=== PATIENT | male | born 1940 | race Caucasian/White ===

== ENCOUNTER → 2017-06-14 09:01 | Outpatient (CLI) | payer MEDICARE, SELFPAY ==
[2017-06-14 10:36] LABS: Anion Gap 7 (5-15); BUN 25 mg/dL (7-18); BUN/Creat Ratio 16.4 RATIO (10-20); Calcium,Total 9.1 mg/dL (8.5-10.1); Chloride 102 mmol/L (98-107); Creatinine, Serum 1.52 mg/dL (0.70-1.30); EST Glomerular Filtration Rate 48 mL/min (>60); Est Glom Filt Rate - Afr Amer 58 mL/min (>60); Glucose 275 mg/dL (74-106); Potassium 3.6 mmol/L (3.5-5.1); Sodium Level 137 mmol/L (136-145)
== END ==
PROVIDERS: Family Provider Family Medicine; PCP Family Medicine; Visit Provider Family Medicine
DX: E11.9 Type 2 diabetes mellitus without complications (principal)
CPT/HCPCS: 36415; 80048

== ENCOUNTER → 2017-09-13 09:05 | Outpatient (CLI) | payer MEDICARE, SELFPAY ==
[2017-09-13 10:33] LABS: AST(SGOT) 34 U/L (15-37); Alanine Aminotransfer ALT/SGPT 143 U/L (16-61); Albumin, Serum 3.8 g/dL (3.2-5.0); Alkaline Phosphatase 164 U/L (45-117); Anion Gap 7 (5-15); BUN 24 mg/dL (7-18); BUN/Creat Ratio 16.9 RATIO (10-20); Bilirubin, Direct 0.19 mg/dL (0.00-0.30); Calcium,Total 9.3 mg/dL (8.5-10.1); Chloride 103 mmol/L (98-107); Cholesterol 107 mg/dL (200); Creatinine, Serum 1.42 mg/dL (0.70-1.30); EST Glomerular Filtration Rate 51 mL/min (>60); Est Glom Filt Rate - Afr Amer 62 mL/min (>60); Glucose 210 mg/dL (74-106); High Density Lipoprotein 48 mg/dL; Potassium 3.6 mmol/L (3.5-5.1); Protein, Total 7.8 g/dL (6.4-8.2); Sodium Level 137 mmol/L (136-145); Triglycerides 129 mg/dL; Very Low Density Lipoprotein 26 mg/dL (5-40)
[2017-09-13 10:34] LABS: Microalbumin:Creatinine Ratio 75.4 mg/g CRE (<30 mg/g CRE)
== END ==
PROVIDERS: Family Provider Family Medicine; PCP Family Medicine; Visit Provider Family Medicine
DX: E55.9 Vitamin D deficiency, unspecified (principal); E11.9 Type 2 diabetes mellitus without complications
CPT/HCPCS: 36415; 80048; 80061; 80076; 82043; 82306; 82570

== ENCOUNTER → 2017-12-22 09:33 | Outpatient (CLI) | payer MEDICARE, SELFPAY ==
[2017-12-22 12:38] LABS: Anion Gap 9 (5-15); BUN 33 mg/dL (7-18); BUN/Creat Ratio 22.8 RATIO (10-20); Calcium,Total 9.2 mg/dL (8.5-10.1); Chloride 102 mmol/L (98-107); Creatinine, Serum 1.45 mg/dL (0.70-1.30); EST Glomerular Filtration Rate 50 mL/min (>60); Est Glom Filt Rate - Afr Amer 61 mL/min (>60); Glucose 217 mg/dL (74-106); Potassium 3.6 mmol/L (3.5-5.1); Sodium Level 137 mmol/L (136-145)
== END ==
PROVIDERS: Family Provider Family Medicine; PCP Family Medicine; Visit Provider Family Medicine
DX: I10 Essential (primary) hypertension (principal)
CPT/HCPCS: 36415; 80048

== ENCOUNTER → 2018-03-21 10:36 | Outpatient (CLI) | payer MEDICARE, SELFPAY ==
[2018-03-21 12:19] LABS: AST(SGOT) 28 U/L (15-37); Alanine Aminotransfer ALT/SGPT 44 U/L (16-61); Albumin, Serum 3.8 g/dL (3.2-5.0); Alkaline Phosphatase 77 U/L (45-117); Anion Gap 11 (5-15); BUN 24 mg/dL (7-18); BUN/Creat Ratio 15.8 RATIO (10-20); Bilirubin, Direct 0.18 mg/dL (0.00-0.30); Calcium,Total 9.2 mg/dL (8.5-10.1); Chloride 103 mmol/L (98-107); Cholesterol 118 mg/dL (200); Creatinine, Serum 1.52 mg/dL (0.70-1.30); EST Glomerular Filtration Rate 47 mL/min (>60); Est Glom Filt Rate - Afr Amer 57 mL/min (>60); Globulin 3.8 g/dL (2.2-4.2); Glucose 142 mg/dL (74-106); High Density Lipoprotein 50 mg/dL; PSA,Total - Annual Screen 0.37 ng/mL (0.00-4.00); Potassium 4.1 mmol/L (3.5-5.1); Protein, Total 7.6 g/dL (6.4-8.2); Sodium Level 141 mmol/L (136-145); Triglycerides 128 mg/dL; Very Low Density Lipoprotein 26 mg/dL (5-40)
[2018-03-21 12:27] LABS: Vitamin D,25 Hydroxy 42.2 ng/mL (29.95-100.01)
[2018-03-21 12:33] LABS: Hemoglobin A1c 7.9 % (4.2-6.3)
[2018-03-21 12:43] LABS: Microalbumin,Random Urine 29.1 mg/L (NO RANGE EST.); Microalbumin:Creatinine Ratio 25.8 mg/g CRE (<30 mg/g CRE)
== END ==
PROVIDERS: Family Provider Family Medicine; PCP Family Medicine; Visit Provider Family Medicine
DX: Z12.5 Encounter for screening for malignant neoplasm of prostate (principal); E11.9 Type 2 diabetes mellitus without complications; E55.9 Vitamin D deficiency, unspecified
CPT/HCPCS: 36415; 80048; 80061; 80076; 82043; 82306; 82570; 83036; 84153; G0103

== ENCOUNTER → 2018-09-19 09:16 | Outpatient (CLI) | payer MEDICARE, SELFPAY ==
[2018-09-19 11:08] LABS: Anion Gap 5 (5-15); BUN 33 mg/dL (7-18); BUN/Creat Ratio 22.6 RATIO (10-20); Calcium,Total 9.3 mg/dL (8.5-10.1); Chloride 105 mmol/L (98-107); Cholesterol 114 mg/dL (200); Creatinine, Serum 1.46 mg/dL (0.70-1.30); EST Glomerular Filtration Rate 50 mL/min (>60); Est Glom Filt Rate - Afr Amer 60 mL/min (>60); Glucose 97 mg/dL (74-106); High Density Lipoprotein 46 mg/dL; Potassium 4.3 mmol/L (3.5-5.1); Sodium Level 139 mmol/L (136-145); Triglycerides 144 mg/dL; Very Low Density Lipoprotein 29 mg/dL (5-40)
== END ==
PROVIDERS: Family Provider Family Medicine; PCP Family Medicine; Referring Provider Family Medicine; Visit Provider Family Medicine
DX: E11.9 Type 2 diabetes mellitus without complications (principal)
CPT/HCPCS: 36415; 80048; 80061

== ENCOUNTER → 2019-03-28 10:20 | Outpatient (CLI) | payer MEDICARE, SELFPAY ==
[2019-03-28 12:49] LABS: Anion Gap 6 (5-15); BUN 34 mg/dL (7-18); BUN/Creat Ratio 20.7 RATIO (10-20); Calcium,Total 9.6 mg/dL (8.5-10.1); Chloride 106 mmol/L (98-107); Cholesterol 110 mg/dL (200); Creatinine, Serum 1.64 mg/dL (0.70-1.30); EST Glomerular Filtration Rate 43 mL/min (>60); Est Glom Filt Rate - Afr Amer 52 mL/min (>60); Glucose 175 mg/dL (74-106); High Density Lipoprotein 40 mg/dL; PSA,Total - Annual Screen 0.25 ng/mL (0.00-4.00); Sodium Level 141 mmol/L (136-145); Triglycerides 165 mg/dL; Very Low Density Lipoprotein 33 mg/dL (5-40)
== END ==
PROVIDERS: PCP Family Medicine; Referring Provider Family Medicine; Visit Provider Family Medicine
DX: Z00.00 Encounter for general adult medical examination without abnormal findings (principal); I10 Essential (primary) hypertension; Z12.5 Encounter for screening for malignant neoplasm of prostate
CPT/HCPCS: 36415; 80048; 80061; 84153; G0103

== ENCOUNTER → 2019-09-25 08:57 | Outpatient (CLI) | payer MEDICARE, SELFPAY ==
[2019-09-25 10:38] LABS: Anion Gap 6 (5-15); BUN 35 mg/dL (7-18); BUN/Creat Ratio 16.4 RATIO (10-20); Calcium,Total 9.2 mg/dL (8.5-10.1); Chloride 106 mmol/L (98-107); Cholesterol 101 mg/dL (200); Creatinine, Serum 2.13 mg/dL (0.70-1.30); EST Glomerular Filtration Rate 32 mL/min (>60); Est Glom Filt Rate - Afr Amer 39 mL/min (>60); Glucose 113 mg/dL (74-106); High Density Lipoprotein 37 mg/dL; Potassium 4.1 mmol/L (3.5-5.1); Sodium Level 139 mmol/L (136-145); Triglycerides 124 mg/dL; Very Low Density Lipoprotein 25 mg/dL (5-40)
== END ==
PROVIDERS: PCP Family Medicine; Referring Provider Family Medicine; Visit Provider Family Medicine
DX: I10 Essential (primary) hypertension (principal)
CPT/HCPCS: 36415; 80048; 80061

== ENCOUNTER 2019-12-15 10:50 | Day surgery (SDC) | payer MEDICARE, SELFPAY ==
[2019-12-15 11:15] VITALS: BP 153/74; PULSE 120; RESP 16; TEMP 37.3; O2SAT 99; BMI 23.2
--- NOTE | 2019-12-15 11:31 | PCM.HP.STD ---
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 Past Medical History Allergies No Known Allergies Allergy (Verified 12/08/19 15:00) Home Medications: Ambulatory Orders Medication Instructions Recorded Atorvastatin Calcium [Lipitor] 10 mg PO QHS 12/08/19 Cholecalciferol (VIT D3) [Vitamin 1,000 unit PO DAILY 12/08/19 D] Glimepiride 4 mg PO DAILY 12/08/19 Lisinopril [Zestril] 2.5 mg PO DAILY 12/08/19 Loperamide [Imodium] 2 mg PO BID 12/08/19 Melatonin/Pyridoxine HCl (B6) 1 ea PO QHS 12/08/19 [Melatonin 10 mg Tablet] Metformin HCl [Metformin ER 1,000 mg PO BID 12/08/19 Osmotic] Potassium Chloride [Klor-Con] 20 meq PO DAILY 12/08/19 Ubidecarenone/Vit E Acet [Co Q-10 1 ea PO DAILY 12/08/19 100 mg Softgel] Surgical History: no surgical history Smoking Status: Former smoker Tobacco Use: Non-smoker Review of Systems Constitutional: Denies: Chills, Fever, Weight Change HEENT: Denies: Head Aches, Sinus Congestion, Sinus Drainage Cardiovascular: Denies: Chest Pain, Palpitations Respiratory: Denies: Cough, Shortness of breath at rest, Sputum production Gastrointestinal: Denies: Abdominal Pain, Nausea, Vomiting Genitourinary: Denies: Dysuria Musculoskeletal: Denies: Joint Pain, Joint Tenderness Skin: Denies: Rash, Wounds Neurological: Denies: Numbness, Tingling, Focal weakness Psychiatric: Denies: Anxiety, Depression, Homicidal Ideations, Suicidal Ideations Hematologic/ Lymphatic: Denies: Easy Bruising, Easy Bleeding VTE Information - Inpt Only VTE Present on Admission: No - Physical Exam Vitals/I&O's: Vital Signs Temp Pulse Resp BP Pulse Ox 99.1 F 120 H 16 153/74 H 99 12/15/19 11:15 12/15/19 11:15 12/15/19 11:15 12/15/19 11:15 12/15/19 11:15 Oxygen Delivery Method Room Air Weight: 71.4 kg Body Mass Index (BMI) 23.2 General: Alert, Oriented x3, Cooperative HEENT: Atraumatic, PERRLA, EOMI, Normocephalic Neck: Supple, No JVD, Negative Carotid Bruits Lungs: Clear to auscultation, Normal air movement Cardiovascular: Regular rate, No murmurs Abdomen: Bowel Sounds Present, Soft, Non Tender Extremities: No edema, Capillary Refill Less than 3 Seconds Skin: No rashes, No breakdown Musculoskeletal: No Tenderness to Palpation of Joints or Extremities Neurological: Cranial nerves II-XII grossly intact Psych/Mental Status: Normal Affect, Appropriate Current Medications Cefazolin Sodium 2 gm/ Sodium (Chloride) 110 mls @ 150 mls/hr IV PREOP ONE Stop: 12/15/19 12:43 Assessment/Plan Plan proceed with removal of Judd catheter direct vision internal urethrotomy placement of a larger catheter and then after this he will have to do CIC.
--- NOTE | 2019-12-15 11:32 | DCINST_ITS ---
Discharge Diet: Light diet - advance as tolerated Discharge Activity: Return to Normal Activity Call your doctor if your incision/area has: Sudden Increased Bleeding Call your doctor if you observe: Fever of 101 or Higher Catheter: Judd to leg bag, Judd to large bag Drain: [place] Allergies/Adverse Reactions: Allergies No Known Allergies Allergy (Verified 12/08/19 15:00) Medications to take at Discharge Atorvastatin Calcium [Lipitor] 10 mg PO QHS 12/08/19 Cholecalciferol (VIT D3) [Vitamin D] 1,000 unit PO DAILY 12/08/19 Glimepiride 4 mg PO DAILY 12/08/19 Lisinopril [Zestril] 2.5 mg PO DAILY 12/08/19 Loperamide [Imodium] 2 mg PO BID 12/08/19 Melatonin/Pyridoxine HCl (B6) [Melatonin 10 mg Tablet] 1 ea PO QHS 12/08/19 Metformin HCl [Metformin ER Osmotic] 1,000 mg PO BID 12/08/19 Potassium Chloride [Klor-Con] 20 meq PO DAILY 12/08/19 Ubidecarenone/Vit E Acet [Co Q-10 100 mg Softgel] 1 ea PO DAILY 12/08/19 Primary Care Physician: Srinivas Thayer MD [Primary Care Provider] - Test Results: Test results from this visit will be discussed in further detail at your follow- up appointment, if applicable. Please Follow Up With: Tal Hill MD When: in 2 weeks, please call to make an appointment.
[2019-12-15] MEDS: Lactated Ringers 1,000 ML 100 ML IV (11:33)
[2019-12-15] MEDS: Cefazolin 2 GM in 0.9% Normal Saline 100 ML IV (12:00)
--- NOTE | 2019-12-15 12:22 | OP.PCM_ITS ---
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 He knows that afterwards he will need to do self dilation to keep the stricture open and that is very likely that the stricture could scarred down again. Patient was taken back to the operating room and smooth duction of general anesthesia he was placed in dorsolithotomy position position. The existing catheter was removed. The penis and testicles were prepped and draped in usual sterile fashion. I then went into the bladder with a 20 B[place]udian urethrotome and inspected the entire length the urethra was clear but at the bulbar urethra there was a severe stricture the opening was very small could not get through the stricture opening I then used the clear cut knife and cut at the 12:00 enough so that he can get through the stricture with a 20 [place]udian scope I then went to the prostatic channel is a very scarred down prostatic channel from prior surgery bladder was fairly distended inside the bladder the left and right ureter orifice were identified no tumors are seen within the bladder. I then put an Amplatz wire through the urethrotome pulled out the urethra over the wire and then put a catheter over the wire it was a 20 [place]udian catheter and the catheter went over the wire into the bladder and then I pulled the wire out we will leave the catheter in place and let the stricture heal up over the catheter the next 2 weeks and then we will see him back in the office for removal of the Akers catheter and then he will need to start self dilation with a 16 Bermudian catheter once a day to keep the stricture from scarring down completely. Type of Anesthesia:: General Drains: 20 fr akers - Admit VTE Documentation VTE Present on Admission: No VTE Mechan Device Prophylaxis: SCD's
[2019-12-15 12:31] VITALS: BP 133/64; BP 153/74; PULSE 102; RESP 16; TEMP 36.1; O2SAT 95
[2019-12-15 12:35] LABS: Bedside Glucose 142 mg/dL (70-110)
[2019-12-15 12:45] VITALS: BP 126/64; BP 153/74; PULSE 97; RESP 16; O2SAT 97
[2019-12-15 12:46] LABS: Bedside Glucose 160 mg/dL (70-110)
[2019-12-15 12:49] VITALS: BP 121/65; BP 153/74; PULSE 91; RESP 16; O2SAT 97
[2019-12-15 12:58] VITALS: BP 118/65; BP 153/74; PULSE 88; RESP 16; TEMP 36.2; O2SAT 98
[2019-12-15 13:52] VITALS: BP 133/62; BP 153/74; PULSE 96; RESP 16; TEMP 36.5; O2SAT 99
== END 2019-12-15 13:53 | disposition home or self-care (01) ==
LOC: SDC 10:50 → AC 10:51
PROVIDERS: Anesthesiology; PCP Family Medicine; Referring Provider Urology; Visit Provider Urology
PROC: 0T7D8ZZ Dilation of Urethra, Via Natural or Artificial Opening Endoscopic (ICD-10-PCS; CPT 52276; principal; 2019-12-15 12:45)
DX: N35.919 Unspecified urethral stricture, male, unspecified site (principal); Z79.84 Long term (current) use of oral hypoglycemic drugs; Z79.899 Other long term (current) drug therapy; Z87.891 Personal history of nicotine dependence; Z20.828 Contact with and (suspected) exposure to other viral communicable diseases; I10 Essential (primary) hypertension; G25.81 Restless legs syndrome; E78.00 Pure hypercholesterolemia, unspecified; Z85.46 Personal history of malignant neoplasm of prostate; Z85.038 Personal history of other malignant neoplasm of large intestine; E11.9 Type 2 diabetes mellitus without complications; Z85.048 Personal history of other malignant neoplasm of rectum, rectosigmoid junction, and anus
CPT/HCPCS: 00910; 52276; 82962; 87635; C9803; J7120; C1769; J2405; U0003

== ENCOUNTER → 2019-12-27 09:04 | Outpatient (CLI) | payer MEDICARE, SELFPAY ==
[2019-12-15 11:15] VITALS: BMI 23.2
[2019-12-27 10:47] LABS: Anion Gap 6 (5-15); BUN 28 mg/dL (7-18); BUN/Creat Ratio 15.5 RATIO (10-20); Calcium,Total 9.3 mg/dL (8.5-10.1); Chloride 108 mmol/L (98-107); Creatinine, Serum 1.81 mg/dL (0.70-1.30); EST Glomerular Filtration Rate 39 mL/min (>60); Est Glom Filt Rate - Afr Amer 47 mL/min (>60); Glucose 157 mg/dL (74-106); Potassium 4.4 mmol/L (3.5-5.1); Sodium Level 139 mmol/L (136-145)
== END ==
PROVIDERS: PCP Family Medicine; Referring Provider Family Medicine; Visit Provider Family Medicine
DX: N28.9 Disorder of kidney and ureter, unspecified (principal)
CPT/HCPCS: 36415; 80048

== ENCOUNTER → 2020-02-08 10:07 | Outpatient (CLI) | payer MEDICARE, SELFPAY ==
[2020-02-08 11:17] LABS: PSA,Total- Diagnostic 0.28 ng/mL (0.0-4.0)
== END ==
PROVIDERS: PCP Family Medicine; Visit Provider Urology
DX: C61 Malignant neoplasm of prostate (principal)
CPT/HCPCS: 36415; 84153

== ENCOUNTER → 2020-03-01 12:08 | Outpatient (CLI) | payer MEDICARE, SELFPAY ==
--- NOTE | 2020-03-01 12:11 | RAD_ITS ---
STUDY: X-RAY - RIGHT ANKLE REASON FOR EXAM: Male, 79 years old. ANKLE PAIN x3 WEEKS S/P FALL INJURY WHILE DIGGING A POST HOLE TECHNIQUE: 3 view(s) of the ankle. COMPARISON: None. FINDINGS: The bones are osteopenic. The well circumscribed density distal to the medial malleolus suggesting prior injury. Normal tibiotalar articulation and ankle mortise. There is an Achilles and plantar spur. The visualized subtalar, talonavicular, calcaneocuboid and tarsal articulations are normal. The soft tissue structures are unremarkable. RAD/Ankle min 3 Views IMPRESSION: Bony demineralization, probable old injury of the medial malleolus. No visualized acute fracture. Electronically Signed: Maryam Wu MD at 4:59 EST Tel , Service support ,
== END ==
PROVIDERS: PCP Family Medicine; Referring Provider Family Medicine; Visit Provider Family Medicine
DX: S99.919A Unspecified injury of unspecified ankle, initial encounter (principal)
CPT/HCPCS: 73610

== ENCOUNTER 2020-04-15 12:30 | Outpatient (RCR) | payer MEDICARE, SELFPAY ==
--- NOTE | 2020-03-13 14:26 | HP.PTEVAL ---
Patient's Visit Information ALEA SALGADO is a 79 year old M referred to Physical Therapy by Dr. Srinivas Thayer MD with a diagnosis of Right ankle pain. Date of Evaluation: 03/13/20 Physical Therapist: Prashanth Dillon, PT, Cert MDT, OCS - Visit Plan Frequency: 2x /Week Duration: 4 Weeks Plan: 2xs/week for 4 weeks per POC. PT Interventions: gait training, balance/proprioception, LE strengthening, AD training, stairs, functional mobility, ankle ROM. - Subjective THIS MALE 79 Y/O MALE INJURIED R ANKLE WHILE DIGGING A METAL POST HOLE. DENIES FALLING TO THE GROUND DURING THE INJURY. JANUARY 2020 DOI. PATIENT SEEN FAMILY MD RECOMMENDED PT ,DID X-RAYS -. AMBULATING TO THE CLINIC WITH SPC ON R SIDE. STARTED USING CANE AFTER THE TIME OF INJURY. DENIES ANY RECENT FALLS. REPORTS PAIN IN THE R LE AND ANKLE. REPORTS UNSTEADINESS AND WEAKNESS OF R LE. REPORTS BILATERAL LE SWELLING DUE TO DIABETES USES COMPRESSION SOCKS . HX OF CANCER. REPORTS NUMBNESS OF TOES IN R LE. VOCATION: RETIRED - Pain Right Ankle Pain Intensity (Out of 10): 0 Pain Intensity Range: 10 - Objective STAIRS: STEP TO PATTERN WITH B UEA. GAIT: DECREASED BUFFY, DECREASED STEP LENGTH, SPC ON R. EDEMA TRIMALLEOR JOINT LINE : RIGHT 49 CM ,LEFT 50 CM. PITTING EDEMA R FOOT. NEURO: SENSATION LIGHT INTACT THROUGHOUT LOWER EXTREMITIES. MMT: HIP FLEXION 4+/5, QUADS/HAMS 5/5 LEFT,4/5 RIGHT ,RIGHT DORSIFLEXION 5/5, INVERSION/EVERSION,4/5,G-S 4-/5. AROM: DORSIFLEXION 4 DEGREES,PLANTER 55 DEGREES ,INVERSION 28 DEGREES ,EVERSION 7 DEGREES. FOREFOOT MOBILITY: WNL. REARFOOT MOBILITY: WNL. TALOCRUAL MOBILIZATION: WNL. ANTERIOR DRAWER: WNL. SLS balance: unable - Balance Scores Functional Gait Assessment Score: 18 % Disability: 40.0000 - Goals Goal 1:: Patient will demonstrate improved balance evidenced by 5 or > point improvement on Functional Gait Assessment. Goal Time Frame: 2-4 Weeks Goal 2:: Patient will demonstrate improved ankle DF to 5 degrees for improved functional mobility. Goal Time Frame: 2-4 Weeks Goal 3:: Patient will demonstrate R SLS balance for 5 seconds for improved balance and decreased fall risk. Goal Time Frame: 2-4 Weeks Goal 4:: Patient will demonstrate independence with HEP. Goal Time Frame: 2-4 Weeks Goal 5:: Patient will demonstrate improved LEFS score of 5 or > points for improved QOL. Goal Time Frame: 2-4 Weeks Goal 6:: Patient will demonstrate the ability to ambulate with mild impairments in gait mechanics for improved community ambulation and decreased fall risk. Goal Time Frame: 2-4 Weeks - Rehabilitation Potential Physical Therapy Diagnosis: Patient is a 79 year old male presenting to the clinic with mild/moderately impaired gait, ambulation with SPC, decreased LE strength, B LE edema, and limited ankle AROM. Rehabilitation Potential: Good - Anticipated Interventions Patient/Client Instruction: Educate patient on: Condition, Plan of Care For the Purpose of:: To decrease pain, To decrease swelling/inflammation, To increase ROM, To improve muscle performance and motor function, To improve ability to perform ADL's, To increase tolerance to activity/condition/position, To improve performance and independence with ADL's, To improve ability of physical actions for home/community/work/leisure, To improve gait and locomotor functions, To increase flexibility/ROM, To improve balance, To improve safety with gait, To improve safety, To improve health and function, To improve ability to perform tasks related to life management Therapeutic Exercise to Include: Strength training, Balance training, Body mechanics, Flexibilty training, Gait and locomotor training, Active ROM For the Purpose of:: To decrease pain, To decrease swelling/inflammation, To increase ROM, To improve muscle performance and motor function, To improve ability to perform ADL's, To increase tolerance to activity/condition/position, To improve performance and independence with ADL's, To improve ability of physical actions for home/community/work/leisure, To improve gait and locomotor functions, To increase flexibility/ROM, To improve balance, To improve safety with gait, To improve health and function, To improve ability to perform tasks related to life management Thank you for the opportunity to evaluate your patient. For Medicare and Medicare HMO plans, please review the plan of care and approve it. It will need to be FAXED BACK to us at [phone] for Medicare purposes. For Medicare only, by signing this I certify the plan of care. Please let me know if there are questions or concerns regarding this plan of care. Physician Signature: Date:
--- NOTE | 2020-04-15 12:58 | HP.PTDCSUM ---
It has been my pleasure to treat ALEA SALGADO referred by Dr. Srinivas Thayer MD, with the diagnosis of Right ankle pain for a total of 9 visit(s). Discharge Date: 04/15/20 Please see the following information for a summary of their discharge status. Subjective: Patient states he has some heel and foot soreness this date. Reports that he has minimal pain. Right Ankle Pain Intensity (Out of 10): 2 % Improvement: 80 Objective/Function: R Ankle ROM: DF 6 degrees, PF 45 degrees, Inversion 12 degrees, Eversion 2 degrees. R MMT: PF 4/5, DF 5/5,EV/IN 4/5. STAIRS :ascend/descend 12 steps alternating with rail. GAIT:ambulated with cane unsteady reciprocal pattern slight decrease stance time. Demonstrates improvements with Functional Gait Assessment. Goal 1:: Patient will demonstrate improved balance evidenced by 5 or > point improvement on Functional Gait Assessment. Goal Progress: Goal Met Goal 2:: Patient will demonstrate improved ankle DF to 5 degrees for improved functional mobility. Goal Progress: Progressing Goal 3:: Patient will demonstrate R SLS balance for 5 seconds for improved balance and decreased fall risk. Goal Progress: Progressing Goal 4:: Patient will demonstrate independence with HEP. Goal Progress: Goal Met Goal 5:: Patient will demonstrate improved LEFS score of 5 or > points for improved QOL. Goal Progress: Progressing Goal 6:: Patient will demonstrate the ability to ambulate with mild impairments in gait mechanics for improved community ambulation and decreased fall risk. Goal Progress: Progressing Plan: D/C TO HEP Discharge Comments: D/C HEP If there are questions or concerns regarding this patient's physical therapy, please feel free to call me at [phone]. Thank you for the referral of this patient. Sincerely, Prashanth Dillon, PT, Cert MDT, OCS
== END 2020-04-15 19:00 | disposition home or self-care (01) ==
LOC: PT 12:30
PROVIDERS: PCP Family Medicine; Referring Provider Family Medicine; Visit Provider Family Medicine
DX: M25.571 Pain in right ankle and joints of right foot (principal)
CPT/HCPCS: 97110; 97161; 97530

== ENCOUNTER → 2020-05-02 17:30 | Outpatient (CLI) | payer MEDICARE, SELFPAY ==
[2020-05-02 17:42] LABS: Hematocrit 33.4 % (40-54); Hemoglobin 10.5 g/dL (13.0-16.5); Mean Corp Hgb Conc 31.4 g/dL (32-36); Mean Corpuscular Hgb 27.4 pg (27.0-32.0); Mean Corpuscular Volume 87.2 fL (80-94); Mean Platelet Vol. 9.2 fl (6.2-12.0); Platelet Count 235 K/mm3 (150-450); RBC Distribution Width CV 14.2 % (11.6-14.6); RBC Distribution Width SD 44.5 fl (35.1-43.9); Red Blood Count 3.83 M/mm3 (4.6-6.2)
[2020-05-02 18:03] LABS: ALB/GLOB Ratio 0.7 RATIO (0.9-2.4); AST(SGOT) 24 U/L (15-37); Alanine Aminotransfer ALT/SGPT 16 U/L (16-61); Albumin, Serum 3.2 g/dL (3.2-5.0); Alkaline Phosphatase 203 U/L (45-117); Anion Gap 10 (5-15); BUN 71 mg/dL (7-18); BUN/Creat Ratio 12.3 RATIO (10-20); Calcium,Total 9.4 mg/dL (8.5-10.1); Chloride 107 mmol/L (98-107); Creatinine, Serum 5.75 mg/dL (0.70-1.30); EST Glomerular Filtration Rate 10 mL/min (>60); Est Glom Filt Rate - Afr Amer 12 mL/min (>60); Globulin 4.3 g/dL (2.2-4.2); Glucose 141 mg/dL (74-106); Potassium 5.3 mmol/L (3.5-5.1); Protein, Total 7.5 g/dL (6.4-8.2); Sodium Level 138 mmol/L (136-145)
== END ==
PROVIDERS: PCP Family Medicine; Visit Provider Nurse Practitioner Family
DX: R53.1 Weakness (principal)
CPT/HCPCS: 36415; 80053; 85027

== ENCOUNTER 2020-05-02 22:50 | Inpatient (IN) | payer MEDICARE, SELFPAY ==
[2020-05-02 22:51] VITALS: BP 182/95; PULSE 118; RESP 16; TEMP 36.2; O2SAT 98; BMI 24.3
--- NOTE | 2020-05-02 23:07 | CT_ITS ---
STUDY: CT BRAIN WITHOUT CONTRAST REASON FOR EXAM: Male, 79 years old. confusion RADIATION DOSAGE (If Supplied By Facility): CTDIvol = ( 44.99 ) mGy, DLP = ( 779.24 ) mGycm TECHNIQUE: Transaxial CT imaging of the brain was performed without administration of intravenous contrast material. Individualized dose optimization techniques were used for this CT. COMPARISON: No relevant priors. FINDINGS: Normal soft tissue structures. Normal calvarium. Right extra-axial calcification along the high parietal calvarium 1.2 x 1.1 x 0.7 cm without adjacent mass effect. Normal size ventricles and extra-axial spaces for the patient''s age. There are areas of decreased attenuation within the white matter tracts of the supratentorial brain, consistent with microvascular disease changes. Normal basal ganglia and thalami. Normal brainstem. Normal cerebellum. There is no intracranial hemorrhage. There are no findings of an acute ischemic infarction. 1.5 cm round attenuation in the right maxillary sinus likely retention cysts. Bilateral hypoplastic and clear mastoid air cells. CT/Brain/Head without Contrast IMPRESSION: Chronic involutional changes of the brain. There is no acute intracranial pathology. Right parietal meningioma suspected. Mild chronic sinus disease. Electronically Signed: Lay Kunz MD at 23:57 EST , Service support ,
--- NOTE | 2020-05-02 23:07 | RAD_ITS ---
STUDY: X-RAY CHEST REASON FOR EXAM: Male, 79 years old. sob TECHNIQUE: Single AP portable view of the chest. COMPARISON: None. FINDINGS: There are superimposed monitor leads. The lungs are hyperaerated. There is no focal parenchymal abnormality. There is no demonstrated pleural abnormality. Normal size heart. Normal mediastinum and chinedu. Normal visualized pulmonary arteries. Normal visualized aortic arch and descending thoracic aorta. There are diffuse degenerative changes of the visualized thoracic spine. There is degenerative osteoarthritis of the bilateral shoulders. There is no demonstrated abnormality of the visualized soft tissue structures of the upper abdomen. RAD/Chest 1 View (Portable) IMPRESSION: Hyperinflation, component of COPD possible. No pulmonary edema, congestive heart failure or confluent pneumonia. Electronically Signed: Lay Kunz MD at 23:46 EST , Service support ,
--- NOTE | 2020-05-02 23:07 | EKG12_ITS ---
Test Reason : DYSRHYTHMIA Blood Pressure : / mmHG Vent. Rate : 108 BPM Atrial Rate : 108 BPM P-R Int : 148 ms QRS Dur : 092 ms QT Int : 356 ms P-R-T Axes : 060 -17 044 degrees QTc Int : 477 ms Sinus tachycardia Otherwise normal ECG Confirmed by CORNEL MICHELLE, VINICIO ([id number]), communications editor TIM BOSE ([id number]) on 05/06/2020 11:00:05 A M Referred By: Confirmed By:JACOB UNGER MD
--- NOTE | 2020-05-02 23:16 | ED.VISSUMM ---
- ER Visit Summary Date of Service: 05/02/20 Chief Complaint: Abnormal labs History of Present Illness: The patient is a 79 M presenting with abnormal labs. Patient has not been feeling well for the past several days. states he got his Covid shot yesterday. He complains of weakness and fatigue and unsteady gait. states he has been confused today. No recent falls. He had outpatient blood work which showed elevated creatinine. He self catheterizes for urine which he has been doing for the past 6 months. He has history of prostate cancer in 2008. He states he is still getting the same amount of urine as usual. He denies fever or chills. Denies cough. Denies chest pain or shortness of breath. Denies nausea, vomiting, diarrhea. Denies headache. Denies other complaints. Physical Examination: Vitals are stable. Patient is afebrile. Alert no acute distress. HEENT exam is unremarkable. Neck is supple. Lungs are clear and equal bilaterally. Heart is regular rate and rhythm. Abdomen is soft nontender nondistended. Extremities are unremarkable. Skin is warm and dry. NIH 1 for LOC questions Remainder of exam is unremarkable. Emergency Department Course and Treatment: EKG is sinus tachycardia rate of 108 with no acute ischemic changes. Chest x-ray read by myself and radiology shows hyperinflation, component of COPD possible. No pulmonary edema, congestive heart failure or confluent pneumonia. CBC shows hemoglobin 10.3. Chemistries show glucose 152, BUN 72, creatinine 5.85, previous creatinine December 2019 was 1.81. Alk phos 191. Troponin 0.117. Lactic acid 1.4. Covid negative. CT head shows chronic involutional changes of the brain. There is no acute intracranial pathology. Right parietal meningioma suspected. Mild chronic sinus disease. Urinalysis shows 10-25 white blood cells, 0-5 red blood cells. Blood and urine cultures were sent. He was given Rocephin IV, IV fluids. Discussed with hospitalist for admission. Disposition: Admission Impression: Acute renal failure, UTI This note was generated with [employer] dictation software. It may contain incorrect words, spelling, and punctuation that were not noted in review of the chart prior to signing ED Disposition - Plan for ED Patient:
[2020-05-02 23:31] LABS: Absolute Neutrophil Count 7.7 X10^3/uL (2.0-7.7); Basophil# 0.03 X10^3/uL; Basophil% 0.3 % (0-1); Eosinophil# 0.04 X10^3/uL; Eosinophils% 0.4 % (0-5); Hematocrit 31.8 % (40-54); Hemoglobin 10.3 g/dL (13.0-16.5); Lymphocyte % 7.3 % (19-41); Mean Corp Hgb Conc 32.4 g/dL (32-36); Mean Corpuscular Hgb 27.9 pg (27.0-32.0); Mean Corpuscular Volume 86.2 fL (80-94); Mean Platelet Vol. 9.2 fl (6.2-12.0); Monocyte# 0.96 X10^3/uL; Monocyte% 10.1 % (0-10); NRBC Flagged by Analyzer 0 % (0-5); Neutrophil # 7.67 X10^3/uL (2.7-7.7); Neutrophil % 80.5 % (47-70); Platelet Count 228 K/mm3 (150-450); RBC Distribution Width CV 13.9 % (11.6-14.6); RBC Distribution Width SD 43.5 fl (35.1-43.9); Red Blood Count 3.69 M/mm3 (4.6-6.2); White Blood Count 9.5 K/mm3 (4.4-11.0)
[2020-05-02 23:38] LABS: ALB/GLOB Ratio 0.7 RATIO (0.9-2.4); AST(SGOT) 23 U/L (15-37); Alanine Aminotransfer ALT/SGPT 17 U/L (16-61); Albumin, Serum 3.1 g/dL (3.2-5.0); Alkaline Phosphatase 191 U/L (45-117); Anion Gap 11 (5-15); BUN 72 mg/dL (7-18); BUN/Creat Ratio 12.3 RATIO (10-20); Calcium,Total 9.2 mg/dL (8.5-10.1); Chloride 107 mmol/L (98-107); Creatinine, Serum 5.85 mg/dL (0.70-1.30); EST Glomerular Filtration Rate 10 mL/min (>60); Est Glom Filt Rate - Afr Amer 12 mL/min (>60); Estimated Creatinine Clearance 9.91 ml/min; Globulin 4.2 g/dL (2.2-4.2); Glucose 152 mg/dL (74-106); Potassium 4.9 mmol/L (3.5-5.1); Protein, Total 7.3 g/dL (6.4-8.2); Sodium Level 139 mmol/L (136-145)
[2020-05-03] VITALS (18 sets, daily range): BP systolic 144–188; BP diastolic 76–97; PULSE 99–125; RESP 16–22; TEMP 36.4–37.3; O2SAT 97–100; BMI 24.3; BMI 21.4
[2020-05-03 00:18] LABS: Bacteria 0 SEEN /hpf (None Seen); Color, Urine Yellow (Yellow); Glucose, Dipstick Normal (Normal); Ketone-Dipstick Negative (Negative); Leukocyte Esterase-Dipstick 100 /ul (Negative); Mucous, Urine 0 SEEN /hpf (<or=2+); Nitrite-Dipstick Negative (Negative); Occult Blood-Urine 50 /ul (Negative); Protein-Dipstick 30 mg/dl (Negative); Squamous Epithelial Cells - UA 0 SEEN /hpf (0-5); Urine Bilirubin Dipstick Negative (Negative); Urine Clarity Clear (Clear); Urine Urobilinogen Normal (Normal); Urine pH 6.5 (5.0 - 8.0)
[2020-05-03 00:26] LABS: Red Blood Cells-Urine 0-5 SEEN /hpf (0-5); White Blood Cells 10-25 SEEN /hpf (0-5)
[2020-05-03] MEDS: Ceftriaxone 1 GM/50 ML BAG IV ×2 (00:59→22:49)
--- NOTE | 2020-05-03 01:04 | PCM.HP.STD ---
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 As per the , he has been feeling weak, not good appetite after for short of Covid. He had second short of Covid a day before admission. Patient is hard of hearing. He has history of bulbar urethral stricture status post cystoscopy and internal urethrotomy in January [address] Hill. [] His baseline creatinine has been 1.5-2 since 2015 but today it was 5.75. Patient uses self-catheterization after stricture and did not notice any difference in the amount. He has decreased sensation of bladder filling. Denies any history of UTI in the past. In ED, his blood pressure was high 188/96, heart rate 188 but afebrile. No tachypnea or hypoxia. Past Medical History Past Medical History (Chronic Problems): Chronic Problems Cancer of colon with rectum (Chronic) Cancer of prostate (Chronic) Allergies No Known Allergies Allergy (Verified 05/02/20 22:53) Home Medications: Ambulatory Orders Medication Instructions Recorded Atorvastatin Calcium [Lipitor] 10 mg PO QHS 12/08/19 Cholecalciferol (VIT D3) [Vitamin 1,000 unit PO DAILY 12/08/19 D] Glimepiride 4 mg PO DAILY 12/08/19 Loperamide [Imodium] 2 mg PO BID 12/08/19 Metformin HCl [Metformin ER 1,000 mg PO BID 12/08/19 Osmotic] Potassium Chloride [Klor-Con] 20 meq PO DAILY 12/08/19 Ubidecarenone/Vit E Acet [Co Q-10 1 ea PO DAILY 12/08/19 100 mg Softgel] Lisinopril [Zestril] 20 mg PO BID 05/02/20 Meloxicam 7.5 mg PO DAILY 05/02/20 Surgical History: no surgical history Smoking Status: Former smoker - *Family History Paternal History Items: Heart Disease - Father Review of Systems Constitutional: Reports: Chills, Malaise, Weakness, Weight Change, Fatigue HEENT: Reports: Difficulty Hearing. Denies: Head Aches, Sinus Congestion, Sinus Drainage Cardiovascular: Denies: Chest Pain, Palpitations Respiratory: Denies: Cough, Shortness of Breath, Shortness of breath at rest, Sputum production Gastrointestinal: Denies: Abdominal Pain, Constipation, Nausea, Vomiting Genitourinary: Reports: Incontinence, Retention Musculoskeletal: Reports: Back Pain. Denies: Joint Pain, Joint Tenderness Skin: Denies: Rash, Wounds Neurological: Reports: Balance problems. Denies: Focal weakness, Numbness, Tingling Psychiatric: Denies: Anxiety, Depression, Homicidal Ideations, Suicidal Ideations Hematologic/ Lymphatic: Denies: Easy Bruising, Easy Bleeding VTE Information - Inpt Only VTE Present on Admission: No VTE Mechan Device Prophylaxis: None VTE Pharm Prophylaxis ordered?: Yes Patient Problems: Active and Suspected Problems Acute kidney injury superimposed on chronic kidney disease (Acute) Objective: General: Alert, Oriented x3, Cooperative HEENT: Hard of hearing. Atraumatic, PERRLA, EOMI, Normocephalic Oral: Oral mucosa dry. No Gingival or Mucosal Lesions/ Ulcerations Neck: Supple, No JVD, Negative Carotid Bruits Lungs: Air entry equal in bilateral lung bases. No crepitation/rhonchi Cardiovascular: A. fib, Normal S1, Normal S2, No murmurs Abdomen: Bowel Sounds Present, Soft, Non Tender, Non-Distended : Neurogenic bladder, on SIC. No renal angle tenderness. No suprapubic tenderness. Extremities: Mild bilateral ankle edema, Capillary Refill Less than 3 Seconds Skin: No rashes, No breakdown Musculoskeletal: No Tenderness to Palpation of Joints or Extremities Neurological: Cranial nerves II-XII grossly intact, Deep Tendon Reflexes 2+/4 and Symmetrical, Neuro grossly intact Psych/Mental Status: Normal Affect, Appropriate. - Physical Exam Vitals/I&O's: Vital Signs Temp Pulse Resp BP Pulse Ox 99.1 F 102 H 18 181/97 H 97 05/03/20 00:36 05/03/20 00:36 05/03/20 00:36 05/03/20 00:36 05/03/20 00:36 Oxygen Delivery Method Room Air Weight: 160 lb Body Mass Index (BMI) 24.3 Finger Stick Blood Glucose 142 Intake and Output for Last 24 Hours 05/01/20 05/02/2005/03/21 23:59 23:59 23:59 Intake Total 500 / 500 Balance 500 / 500 Microbiology Past 72 Hours 05/02/20 23:14 Mucosa - Nose SARS-CoV-2 Antigen (Rapid) - Final Laboratory Results 05/02/20 00:10: Urine Color Yellow, Urine Clarity Clear, Urine pH 6.5, Ur Specific [place] 1.010, Urine Protein 30 H, Urine Glucose (UA) Normal, Urine Ketones Negative, Urine Occult Blood 50 H, Urine Nitrite Negative, Urine Bilirubin Negative, Urine Urobilinogen Normal, Ur Leukocyte Esterase 100 H, Urine RBC 0-5 SEEN, Urine WBC 10-25 SEEN, Ur Squamous Epith Cells 0 SEEN, Urine Bacteria 0 SEEN, Urine Mucus 0 SEEN 05/02/20 23:09: WBC 9.5, RBC 3.69 L, Hgb 10.3 L, Hct 31.8 L, MCV 86.2, MCH 27.9, MCHC 32.4, RDW Std Deviation 43.5, RDW Coeff of [place]arian 13.9, Plt Count 228, MPV 9.2, Immature Gran % (Auto) 1.400 H, Neut % (Auto) 80.5 H, Lymph % (Auto) 7.3 L, [place] % (Auto) 10.1 H, Eos % (Auto) 0.4, Baso % (Auto) 0.3, Absolute Neuts (auto) 7.7, Absolute Lymphs (auto) 0.70 L, Nucleated RBC % 0 05/02/20 23:09: Sodium 139, Potassium 4.9, Chloride 107, Carbon Dioxide 21.0, Anion Gap 11, BUN 72 H, Creatinine 5.85 H, Estim Creat Clear Calc 9.91, Est GFR (MDRD) Af Amer 12 L, Est GFR (MDRD) Non-Af 10 L, BUN/Creatinine Ratio 12.3, Glucose 152 H, Calcium 9.2, Total Bilirubin 0.40, AST 23, ALT 17, Alkaline Phosphatase 191 H, Troponin I 0.117 H, Total Protein 7.3, Albumin 3.1 L, Globulin 4.2, Albumin/Globulin Ratio 0.7 L Current Medications Sodium Chloride () 500 mls @ 999 mls/hr IV .Q31M LOLA Stop: 05/03/20 01:15 Last Admin: 05/03/20 01:02 Dose: 999 mls/hr Documented by: Assessment/Plan All Active Problems Acute kidney injury superimposed on chronic kidney disease (Acute) 1. 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 No previous history of UTI. No significant history of hypovolemia/fluid loss. Patient got 1 L of normal saline bolus IV fluid normal saline in ED. Ceftriaxone 1 g empirically IV daily ordered. Blood cultures x2 and urine culture ordered. Rapid SARS-CoV-2 antigen negative. [place] nephrology consult. Patient on high dose of lisinopril 20 mg twice daily, Metformin 1000 mg twice daily, meloxicam, glimepiride and potassium supplement. Hold nephrotoxic medications. Lactic acid pending 2. 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 Follows Dr. Hill. Bladder scan and straight catheterizing every 4-6 hours. 3. History of colorectal cancer and prostate cancer in remission for last 8 years: Patient was discharged from Dr. Melo office. 4. Hypertension: Hydralazine 50 mg p.o. twice daily and hydralazine 10 mg IV every 4 hourly as needed for systolic blood pressure more than 180. Avoid amlodipine as patient has mild ankle edema 5. Diabetes mellitus type 2: Glucose is 152. Accu-Cheks before meals and at bedtime coverage milk sliding scale VTE prophylaxis: Heparin 5000 units subcutaneous twice daily. Discontinue if platelet count drops less than 50,000 or hemoglobin less than 8 g% Living will/advanced directive/end of life care: Patient does have living will or advanced directive. After discussion of benefits/risks procedures involved with full code, DNR CC arrest and DNR CC, the patient and his , Terri opted for DNR-CC Arrest with no intubation and there is no chance of recovery, terminal stage. Patient does not want artificial life support including intubation, tube feed, ventilator and/chest compression, central venous catheter, vasopressor and DC shock if needed Total time spent in [id number] encounter in discussion of advanced directive 16 minutes. Inpatient E&M: 25548 Init Hosp L3 Procedures: 98519 Advncd Care Plan 30 Min
[2020-05-03 01:21] LABS: Lactic Acid 1.4 mmol/L (0.4-1.9)
[2020-05-03] MEDS: hydrALAZINE 50 MG Tablet PO ×3 (02:29→22:40)
[2020-05-03] MEDS: 0.9% Normal Saline 1,000 ML 100 ML IV (02:29)
[2020-05-03 02:41] LABS: Bedside Glucose 121 mg/dL (70-110)
[2020-05-03 06:02] LABS: Absolute Neutrophil Count 6.5 X10^3/uL (2.0-7.7); Basophil# 0.03 X10^3/uL; Basophil% 0.4 % (0-1); Eosinophils% 1.2 % (0-5); Hematocrit 32.7 % (40-54); Hemoglobin 10.3 g/dL (13.0-16.5); Lymphocyte % 7.5 % (19-41); Mean Corp Hgb Conc 31.5 g/dL (32-36); Mean Corpuscular Hgb 27.2 pg (27.0-32.0); Mean Corpuscular Volume 86.3 fL (80-94); Mean Platelet Vol. 9.5 fl (6.2-12.0); Monocyte# 0.72 X10^3/uL; NRBC Flagged by Analyzer 0 % (0-5); Neutrophil # 6.53 X10^3/uL (2.7-7.7); Neutrophil % 81.2 % (47-70); POSITIVE DIFFERENTIAL YES; Platelet Count 234 K/mm3 (150-450); RBC Distribution Width CV 13.9 % (11.6-14.6); RBC Distribution Width SD 44.1 fl (35.1-43.9); Red Blood Count 3.79 M/mm3 (4.6-6.2)
[2020-05-03 06:13] LABS: Differential Indicated SCAN CRITERIA MET
[2020-05-03 06:29] LABS: Anion Gap 10 (5-15); BUN 71 mg/dL (7-18); BUN/Creat Ratio 12.3 RATIO (10-20); Calcium,Total 8.8 mg/dL (8.5-10.1); Chloride 111 mmol/L (98-107); Creatinine, Serum 5.77 mg/dL (0.70-1.30); EST Glomerular Filtration Rate 10 mL/min (>60); Est Glom Filt Rate - Afr Amer 12 mL/min (>60); Glucose 162 mg/dL (74-106); Phosphorus 4.9 mg/dL (2.5-4.9); Potassium 4.6 mmol/L (3.5-5.1); Sodium Level 141 mmol/L (136-145)
[2020-05-03] MEDS: Insulin Lispro 100 UNIT/ML INSULN.PEN SC ×3 (06:47→22:46)
[2020-05-03 07:05] LABS: Bedside Glucose 161 mg/dL (70-110)
[2020-05-03 08:38] LABS: Hemoglobin A1c 5.5 % (3.8-5.6)
--- NOTE | 2020-05-03 08:39 | PCM.PN.HOSP ---
Patient Problems: Active and Suspected Problems Acute kidney injury superimposed on chronic kidney disease (Acute) Reason for Visit: Acute kidney injury Subjective: Patient is a 79-year-old gentleman with history of prostate CA in remission brought to the hospital with worsening kidney function Objective: GENERAL: cooperative HEENT: Atraumatic; EYES; Anicteric, Normal Conjunctiva NECK; supple, normal thyroid, RESPIRATORY: Diminished to auscultation CARDIOVASCULAR: Regular S1 S2, GI: soft, normoactive bowel sounds, : No Renal angle tenderness; EXTREMITIES: No edema, no clubbing, MUSCULOSKELETAL: no muscle waisting NEURO: Awake; no lateralizing signs. SKIN: No Rash PSYCH; Flat affect Vitals/I&O's: Vital Signs Temp Pulse Resp BP Pulse Ox 97.9 F 99 18 179/88 H 99 05/03/20 02:15 05/03/20 06:58 05/03/20 02:15 05/03/20 02:29 05/03/20 07:43 Oxygen Delivery Method Room Air Weight: 64 kg Body Mass Index (BMI) 21.4 Finger Stick Blood Glucose 142 Intake and Output for Last 24 Hours 05/01/20 05/02/20 05/03/20 23:59 23:59 23:59 Intake Total 500 / 500 670 / 670 Output Total 0 / 0 Balance 500 / 500 670 / 670 Microbiology Past 72 Hours 05/02/20 23:14 Mucosa - Nose SARS-CoV-2 Antigen (Rapid) - Final Laboratory Results 05/02/20 00:10: Urine Color Yellow, Urine Clarity Clear, Urine pH 6.5, Ur Specific [place] 1.010, Urine Protein 30 H, Urine Glucose (UA) Normal, Urine Ketones Negative, Urine Occult Blood 50 H, Urine Nitrite Negative, Urine Bilirubin Negative, Urine Urobilinogen Normal, Ur Leukocyte Esterase 100 H, Urine RBC 0-5 SEEN, Urine WBC 10-25 SEEN, Ur Squamous Epith Cells 0 SEEN, Urine Bacteria 0 SEEN, Urine Mucus 0 SEEN 05/02/20 23:09: WBC 9.5, RBC 3.69 L, Hgb 10.3 L, Hct 31.8 L, MCV 86.2, MCH 27.9, MCHC 32.4, RDW Std Deviation 43.5, RDW Coeff of [place] 13.9, Plt Count 228, MPV 9.2, Immature Gran % (Auto) 1.400 H, Neut % (Auto) 80.5 H, Lymph % (Auto) 7.3 L, [place] % (Auto) 10.1 H, Eos % (Auto) 0.4, Baso % (Auto) 0.3, Absolute Neuts (auto) 7.7, Absolute Lymphs (auto) 0.70 L, Nucleated RBC % 0 05/02/20 23:09: Sodium 139, Potassium 4.9, Chloride 107, Carbon Dioxide 21.0, Anion Gap 11, BUN 72 H, Creatinine 5.85 H, Estim Creat Clear Calc 9.91, Est GFR (MDRD) Af Amer 12 L, Est GFR (MDRD) Non-Af 10 L, BUN/Creatinine Ratio 12.3, Glucose 152 H, Calcium 9.2, Total Bilirubin 0.40, AST 23, ALT 17, Alkaline Phosphatase 191 H, Troponin I 0.117 H, Total Protein 7.3, Albumin 3.1 L, Globulin 4.2, Albumin/Globulin Ratio 0.7 L 05/03/20 00:50: Lactic Acid 1.4 05/03/20 02:25: POC Glucose 121 H 05/03/20 05:45: WBC 8.0, RBC 3.79 L, Hgb 10.3 L, Hct 32.7 L, MCV 86.3, MCH 27.2, MCHC 31.5 L, RDW Std Deviation 44.1 H, RDW Coeff of [place] 13.9, Plt Count 234, MPV 9.5, Immature Gran % (Auto) 0.700, Neut % (Auto) 81.2 H, Lymph % (Auto) 7.5 L, [place] % (Auto) 9.0, Eos % (Auto) 1.2, Baso % (Auto) 0.4, Absolute Neuts (auto) 6.5, Absolute Lymphs (auto) 0.60 L, Nucleated RBC % 0 05/03/20 05:45: Sodium 141, Potassium 4.6, Chloride 111 H, Carbon Dioxide 20.0 L, Anion Gap 10, BUN 71 H, Creatinine 5.77 H, Estim Creat Clear Calc 9.40, Est GFR (MDRD) Af Amer 12 L, Est GFR (MDRD) Non-Af 10 L, BUN/Creatinine Ratio 12.3, Glucose 162 H, Calcium 8.8, Phosphorus 4.9, Magnesium 2.0 03/12/21 05:45: Hemoglobin A1c 5.5 05/03/20 06:40: POC Glucose 161 H Current Medications Acetaminophen (Acetaminophen 325 Mg Tablet) 650 mg PO Q6H PRN PRN PRN Reason: Pain Score 1-10/Temp > 100.7 F Albuterol Sulfate (Albuterol 2.5 Mg/3 Ml Vial.Neb.) 2.5 mg INHALATION Q2H PRN PRN PRN Reason: SOB/Wheezing Atorvastatin Calcium (Atorvastatin Calcium 10 Mg Tablet) 10 mg PO QHS [facility] Cholecalciferol (Cholecalciferol (Vit D3) 1,000 Unit (25mcg)) 1,000 unit PO DAILY [facility] Dextrose (Dextrose 50%-Water 25 Gm/50 Ml Disp.Syrin) 0 gm IV X1 PRN; Protocol PRN Reason: Hypoglycemia Glucagon (Glucagon 1 Mg/Ml Syringe) 1 mg IM .X1 PRN PRN Reason: Hypoglycemia Heparin Sodium (Porcine) (Heparin Injection (Vial) 5,000 Unit/Ml Vial) 5,000 unit SC Q12 [facility] Hydralazine HCl (Hydralazine 20 Mg/Ml Vial) 10 mg IV Q4H PRN PRN PRN Reason: SBP more than 180 mmHg Hydralazine HCl (Hydralazine 50 Mg Tablet) 50 mg PO BID [facility] Last Admin: 05/03/20 02:29 Dose: 50 mg Documented by: Sodium Chloride () 1,000 mls @ 100 mls/hr IV .Q10H [facility] Stop: 05/03/20 21:30 Last Admin: 05/03/20 02:29 Dose: 100 mls/hr Documented by: Ceftriaxone Sodium (Rocephin) 1 gm in 50 mls @ 100 mls/hr IV Q24H [facility] Sodium Chloride () 250 mls @ 15 mls/hr IV .[id number] PRN PRN Reason: Saline Flush Insulin Human Lispro (Insulin Lispro 100 Unit/Ml Insuln.Pen) 0 unit SC ACHS [facility]; Protocol Last Admin: 05/03/20 06:47 Dose: 2 units Documented by: Loperamide HCl (Loperamide 2 Mg Capsule) 2 mg PO BID [facility] Morphine Sulfate (Morphine 2 Mg/Ml Syringe) 2 mg IV Q3H PRN PRN PRN Reason: Pain Score 6-10 Nitroglycerin (Nitroglycerin (Inpatient Use) 0.4 Mg Tab.Subl) 0.4 mg SL Q5M PRN PRN Reason: CARDIAC/CHEST PAIN Nutritional Formula (Lactose Free) (Glucerna Shake 120 Ml Liquid) 120 ml PO TIDCM LOLA Oxycodone HCl (Oxycodone 5 Mg Tablet) 5 mg PO Q4H PRN PRN PRN Reason: Pain Score 4-5 Prochlorperazine Edisylate (Prochlorperazine 10 Mg/2 Ml Vial) 5 mg IV Q4H PRN PRN PRN Reason: Breakthrough Nausea/Vomiting Senna/Docusate Sodium (Senna/Docusate Sodium 1 Tablet) 2 tablet PO BID PRN PRN PRN Reason: Constipation Sodium Chloride (0.9% Saline Lock 10 Ml Syringe) 10 - 40 ml IV UD PRN PRN Reason: SALINE FLUSH STROKE Vital Signs/Narrative: Vital Signs Pulse Pulse Ox 05/03/20 07:43 99 05/03/20 06:58 99 Medical Necessity - Tobacco Use Smoking Status: Former smoker Assessment/Plan All Active Problems Acute kidney injury superimposed on chronic kidney disease (Acute) Patient is a 79-year-old gentleman with history of prostate CA in remission brought to the hospital with worsening kidney function 1. Acute kidney injury ?Secondary to a combination of possible obstructive uropathy worsening by the use of AMADA inhibitors as well as meloxicam admitted to monitored bed started on IV fluid with subsequent monitoring of electrolytes and consultation placed to nephrology 2. Acute cystitis ?Patient started on IV Rocephin 3. Diabetes mellitus type II -patient's oral hypoglycemics held. Placed on long acting insulin, Accu-Cheks a.c. and at bedtime and covered with sliding scale insulin 4. Hypertension - Blood pressure controlled, patient is on lisinopril held in view of worsening kidney function 5. Dyslipidemia -Patient is on statin therapy, continued at home dose 6. Generalized osteoarthritis ?Patient is on meloxicam;Held in view of worsening kidney function 7. DVT prophylaxis ?SC heparin Inpatient E&M: [id number] [facility] L2
[2020-05-03] MEDS: Heparin Injection (Vial) 5,000 UNIT/ML VIAL 5000 UNIT SC ×2 (10:06→22:48)
[2020-05-03] MEDS: Loperamide 2 MG Capsule PO (10:06)
--- NOTE | 2020-05-03 11:01 | CON.PCM_ITS ---
Consultation - Renal 05/03/20 PCP/ Referring MD: Requesting physician: [] Primary care physician: Dr. Srinivas Thayer MD Reason for Consultation:: deisi - History of Present Illness History of Present Illness: The patient is a 79 year old M with past medical history of colorectal cancer s/p resection and anastomosis and cancer prostate s/p radiation in remission for the past 8 years who presented with an abnormal labs from his PCP office. Apparently he has been feeling weak after his second shot of Covid a day before admission. The patient is very hard of hearing. He has a history of bulbar urethral stricture s/p cystoscopy and internal urethrotomy January last year by Dr. Hill. Serum creatinine was 5.7 on presentation from baseline 1.5-2. Uses self- catheterization and did not notice any difference in the amount of urine. He has decreased sensation of bladder filling denies fever chills. He was on meloxicam and AMADA inhibitor at home. He denies fever chills vomiting diarrhea. He has some mild ankle edema. Denies history of hemoptysis shortness of breath skin rashes. He has no chest pain headache hematuria. - Allergies Allergies: Allergies No Known Allergies Allergy (Verified 05/02/20 22:53) - Current Medications Current Medications: Current Medications Acetaminophen (Acetaminophen 325 Mg Tablet) 650 mg PO Q6H PRN PRN PRN Reason: Pain Score 1-10/Temp > 100.7 F Albuterol Sulfate (Albuterol 2.5 Mg/3 Ml Vial.Neb.) 2.5 mg INHALATION Q2H PRN PRN PRN Reason: SOB/Wheezing Atorvastatin Calcium (Atorvastatin Calcium 10 Mg Tablet) 10 mg PO QHS [facility] Cholecalciferol (Cholecalciferol (Vit D3) 1,000 Unit (25mcg)) 1,000 unit PO DAILY [facility] Last Admin: 05/03/20 10:06 Dose: 1,000 unit Documented by: Dextrose (Dextrose 50%-Water 25 Gm/50 Ml Disp.Syrin) 0 gm IV X1 PRN; Protocol PRN Reason: Hypoglycemia Glucagon (Glucagon 1 Mg/Ml Syringe) 1 mg IM .X1 PRN PRN Reason: Hypoglycemia Heparin Sodium (Porcine) (Heparin Injection (Vial) 5,000 Unit/Ml Vial) 5,000 unit SC Q12 [facility] Last Admin: 05/03/20 10:06 Dose: 5,000 unit Documented by: Hydralazine HCl (Hydralazine 20 Mg/Ml Vial) 10 mg IV Q4H PRN PRN PRN Reason: SBP more than 180 mmHg Hydralazine HCl (Hydralazine 50 Mg Tablet) 50 mg PO BID [facility] Last Admin: 05/03/20 10:06 Dose: 50 mg Documented by: Sodium Chloride () 1,000 mls @ 100 mls/hr IV .Q10H [facility] Stop: 05/03/20 21:30 Last Admin: 05/03/20 02:29 Dose: 100 mls/hr Documented by: Ceftriaxone Sodium (Rocephin) 1 gm in 50 mls @ 100 mls/hr IV Q24H [facility] Sodium Chloride () 250 mls @ 15 mls/hr IV .[id number] PRN PRN Reason: Saline Flush Insulin Human Lispro (Insulin Lispro 100 Unit/Ml Insuln.Pen) 0 unit SC [facility]; Protocol Last Admin: 05/03/20 06:47 Dose: 2 units Documented by: Loperamide HCl (Loperamide 2 Mg Capsule) 2 mg PO BID [facility] Last Admin: 05/03/20 10:06 Dose: 2 mg Documented by: Morphine Sulfate (Morphine 2 Mg/Ml Syringe) 2 mg IV Q3H PRN PRN PRN Reason: Pain Score 6-10 Nitroglycerin (Nitroglycerin (Inpatient Use) 0.4 Mg Tab.Subl) 0.4 mg SL Q5M PRN PRN Reason: CARDIAC/CHEST PAIN Nutritional Formula (Lactose Free) (Glucerna Shake 120 Ml Liquid) 120 ml PO TIDCM [facility] Last Admin: 05/03/20 10:05 Dose: Not Given Documented by: Oxycodone HCl (Oxycodone 5 Mg Tablet) 5 mg PO Q4H PRN PRN PRN Reason: Pain Score 4-5 Prochlorperazine Edisylate (Prochlorperazine 10 Mg/2 Ml Vial) 5 mg IV Q4H PRN PRN PRN Reason: Breakthrough Nausea/Vomiting Senna/Docusate Sodium (Senna/Docusate Sodium 1 Tablet) 2 tablet PO BID PRN PRN PRN Reason: Constipation Sodium Chloride (0.9% Saline Lock 10 Ml Syringe) 10 - 40 ml IV UD PRN PRN Reason: SALINE FLUSH - Past Medical History Past Medical History (Chronic Problems): Chronic Problems Cancer of colon with rectum (Chronic) Cancer of prostate (Chronic) - Past Surgical History Surgical History: no surgical history - Social History Smoking Status: Former smoker - Family History Paternal History Items: Heart Disease - Father Review of Systems Eyes: Reports: - - Review of systems otherwise negative unless noted in the HPI Patient Problems: Active and Suspected Problems Acute kidney injury superimposed on chronic kidney disease (Acute) - Physical Exam Vitals/I&O's: Vital Signs Temp Pulse Resp BP Pulse Ox 97.6 F L 124 H 16 166/85 H 99 05/03/20 09:41 05/03/20 10:35 05/03/20 09:41 05/03/20 09:41 05/03/20 09:41 Oxygen Delivery Method Room Air Weight: 64 kg Body Mass Index (BMI) 21.4 Finger Stick Blood Glucose 142 Intake and Output for Last 24 Hours 05/01/20 05/02/20 05/03/20 23:59 23:59 23:59 Intake Total 500 / 500 670 / 670 Output Total 0 / 0 Balance 500 / 500 670 / 670 General: Alert, Cooperative HEENT: Atraumatic, Normocephalic Neck: Supple, Trachea Midline Lungs: Clear to auscultation, Normal air movement Cardiovascular: Regular rate, Regular Rhythm, Normal S1, Normal S2 Abdomen: Bowel Sounds Present, Soft, Non Tender Extremities: Edema Skin: No rashes Neurological: Sensory exam intact to light touch and pain, - - alutiiq mild Microbiology Past 72 Hours 05/02/20 23:14 Mucosa - Nose SARS-CoV-2 Antigen (Rapid) - Final Laboratory Results 05/02/20 00:10: Urine Color Yellow, Urine Clarity Clear, Urine pH 6.5, Ur Specific [place] 1.010, Urine Protein 30 H, Urine Glucose (UA) Normal, Urine Ketones Negative, Urine Occult Blood 50 H, Urine Nitrite Negative, Urine Bilirubin Negative, Urine Urobilinogen Normal, Ur Leukocyte Esterase 100 H, Urine RBC 0-5 SEEN, Urine WBC 10-25 SEEN, Ur Squamous Epith Cells 0 SEEN, Urine Bacteria 0 SEEN, Urine Mucus 0 SEEN 05/02/20 23:09: WBC 9.5, RBC 3.69 L, Hgb 10.3 L, Hct 31.8 L, MCV 86.2, MCH 27.9, MCHC 32.4, RDW Std Deviation 43.5, RDW Coeff of Darian 13.9, Plt Count 228, MPV 9.2, Immature Gran % (Auto) 1.400 H, Neut % (Auto) 80.5 H, Lymph % (Auto) 7.3 L, Gray % (Auto) 10.1 H, Eos % (Auto) 0.4, Baso % (Auto) 0.3, Absolute Neuts (auto) 7.7, Absolute Lymphs (auto) 0.70 L, Nucleated RBC % 0 05/02/20 23:09: Sodium 139, Potassium 4.9, Chloride 107, Carbon Dioxide 21.0, Anion Gap 11, BUN 72 H, Creatinine 5.85 H, Estim Creat Clear Calc 9.91, Est GFR (MDRD) Af Amer 12 L, Est GFR (MDRD) Non-Af 10 L, BUN/Creatinine Ratio 12.3, Glucose 152 H, Calcium 9.2, Total Bilirubin 0.40, AST 23, ALT 17, Alkaline Phosphatase 191 H, Troponin I 0.117 H, Total Protein 7.3, Albumin 3.1 L, Globulin 4.2, Albumin/Globulin Ratio 0.7 L 05/03/20 00:50: Lactic Acid 1.4 05/03/20 02:25: POC Glucose 121 H 05/03/20 05:45: WBC 8.0, RBC 3.79 L, Hgb 10.3 L, Hct 32.7 L, MCV 86.3, MCH 27.2, MCHC 31.5 L, RDW Std Deviation 44.1 H, RDW Coeff of Darian 13.9, Plt Count 234, MPV 9.5, Immature Gran % (Auto) 0.700, Neut % (Auto) 81.2 H, Lymph % (Auto) 7.5 L, Gray % (Auto) 9.0, Eos % (Auto) 1.2, Baso % (Auto) 0.4, Absolute Neuts (auto) 6.5, Absolute Lymphs (auto) 0.60 L, Nucleated RBC % 0 05/03/20 05:45: Sodium 141, Potassium 4.6, Chloride 111 H, Carbon Dioxide 20.0 L , Anion Gap 10, BUN 71 H, Creatinine 5.77 H, Estim Creat Clear Calc 9.40, Est GFR (MDRD) Af Amer 12 L, Est GFR (MDRD) Non-Af 10 L, BUN/Creatinine Ratio 12.3, Glucose 162 H, Calcium 8.8, Phosphorus 4.9, Magnesium 2.0 05/03/20 05:45: Hemoglobin A1c 5.5 05/03/20 06:40: POC Glucose 161 H Current Medications Acetaminophen (Acetaminophen 325 Mg Tablet) 650 mg PO Q6H PRN PRN PRN Reason: Pain Score 1-10/Temp > 100.7 F Albuterol Sulfate (Albuterol 2.5 Mg/3 Ml Vial.Neb.) 2.5 mg INHALATION Q2H PRN PRN PRN Reason: SOB/Wheezing Atorvastatin Calcium (Atorvastatin Calcium 10 Mg Tablet) 10 mg PO QHS [facility] Cholecalciferol (Cholecalciferol (Vit D3) 1,000 Unit (25mcg)) 1,000 unit PO DAILY [facility] Last Admin: 05/03/20 10:06 Dose: 1,000 unit Documented by: Dextrose (Dextrose 50%-Water 25 Gm/50 Ml Disp.Syrin) 0 gm IV X1 PRN; Protocol PRN Reason: Hypoglycemia Glucagon (Glucagon 1 Mg/Ml Syringe) 1 mg IM .X1 PRN PRN Reason: Hypoglycemia Heparin Sodium (Porcine) (Heparin Injection (Vial) 5,000 Unit/Ml Vial) 5,000 unit SC Q12 [facility] Last Admin: 05/03/20 10:06 Dose: 5,000 unit Documented by: Hydralazine HCl (Hydralazine 20 Mg/Ml Vial) 10 mg IV Q4H PRN PRN PRN Reason: SBP more than 180 mmHg Hydralazine HCl (Hydralazine 50 Mg Tablet) 50 mg PO BID [facility] Last Admin: 05/03/20 10:06 Dose: 50 mg Documented by: Sodium Chloride () 1,000 mls @ 100 mls/hr IV .Q10H [facility] Stop: 05/03/20 21:30 Last Admin: 05/03/20 02:29 Dose: 100 mls/hr Documented by: Ceftriaxone Sodium (Rocephin) 1 gm in 50 mls @ 100 mls/hr IV Q24H [facility] Sodium Chloride () 250 mls @ 15 mls/hr IV .[id number] PRN PRN Reason: Saline Flush Insulin Human Lispro (Insulin Lispro 100 Unit/Ml Insuln.Pen) 0 unit SC ACHS [facility]; Protocol Last Admin: 05/03/20 06:47 Dose: 2 units Documented by: Loperamide HCl (Loperamide 2 Mg Capsule) 2 mg PO BID [facility] Last Admin: 05/03/20 10:06 Dose: 2 mg Documented by: Morphine Sulfate (Morphine 2 Mg/Ml Syringe) 2 mg IV Q3H PRN PRN PRN Reason: Pain Score 6-10 Nitroglycerin (Nitroglycerin (Inpatient Use) 0.4 Mg Tab.Subl) 0.4 mg SL Q5M PRN PRN Reason: CARDIAC/CHEST PAIN Nutritional Formula (Lactose Free) (Glucerna Shake 120 Ml Liquid) 120 ml PO TIDCM [facility] Last Admin: 05/03/20 10:05 Dose: Not Given Documented by: Oxycodone HCl (Oxycodone 5 Mg Tablet) 5 mg PO Q4H PRN PRN PRN Reason: Pain Score 4-5 Prochlorperazine Edisylate (Prochlorperazine 10 Mg/2 Ml Vial) 5 mg IV Q4H PRN PRN PRN Reason: Breakthrough Nausea/Vomiting Senna/Docusate Sodium (Senna/Docusate Sodium 1 Tablet) 2 tablet PO BID PRN PRN PRN Reason: Constipation Sodium Chloride (0.9% Saline Lock 10 Ml Syringe) 10 - 40 ml IV UD PRN PRN Reason: SALINE FLUSH Assessment/Plan All Active Problems Acute kidney injury superimposed on chronic kidney disease (Acute) DEISI possible prerenal/ATN but need to r/o obstruction CKD 3 creatinine is 1.6-2.1 LE edema trace history of bulbar urethral stricture s/p cystoscopy and internal urethrotomy January last year by Dr. Hill HTN DM check renal US to r/o obstruction f/u urine cx but asymptomatic continue intermittent catheterization has history of obstruction. If persistent elevation of blood pressure start calcium channel amarilis or beta- amarilis for BP control. 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 Hill. further Work-up as indicated by clinical course avoid nephrotoxins The above assessment and plan was discussed at length with the patient voiced understanding and agreed to proceed with the plan as outlined above. He was given the opportunity to ask questions and stated that those were answered to his satisfaction. Thank you very much for allowing me to participate in the care of this patient. Please do not hesitate to call if you have any questions or concerns
--- NOTE | 2020-05-03 11:23 | US_ITS ---
STUDY: RENAL ULTRASOUND - COMPLETE REASON FOR EXAM: Male, 79 years old. garcia TECHNIQUE: Ultrasound evaluation of the kidneys was performed with real-time and static zavala-scale imaging. COMPARISON: None. FINDINGS: RIGHT KIDNEY: Normal location of the right kidney, which is normal in size. The right kidney measures 10.7 cm. There is a normal cortex of the right kidney. The renal cortex measures 1.0 cm. There is no right renal mass or cyst. There are no right renal calculi. There is severe hydronephrosis of the right kidney. DISTAL RIGHT URETER: There is non-visualization of the distal right ureter. There is no demonstrated right ureterovesical junction calculus. There is a visualized right ureteral jet. LEFT KIDNEY: Normal location of the left kidney, which is normal in size. The left kidney measures 11.1 cm. There is a normal cortex of the left kidney. The renal cortex measures 1.4 cm. There is no left renal mass or cyst. There are no left renal calculi. There is moderate hydronephrosis of the left kidney. DISTAL LEFT URETER: There is non-visualization of the distal left ureter. There is no demonstrated left ureterovesical junction calculus. There is a visualized left ureteral jet. BLADDER: The distended urinary bladder has a volume of 302 ml. The empty urinary bladder has a volume of ml. There is a normal wall thickness of the distended urinary bladder. Suspect 4.8 cm mass within the base of the bladder. There are no demonstrated bladder calculi. US/Kidney and Bladder IMPRESSION: Suspect 4.8 cm mass in the base of the bladder with severe right hydronephrosis and moderate left hydronephrosis possibly from bladder outlet obstruction or ureteral vesicle junction of the stenosis. Correlation with cystoscopy would be useful. Electronically Signed: Mark Milan MD at 12:59 EST Tel , Service support ,
--- NOTE | 2020-05-03 11:30 | CASEMGMT ---
GOPAL ANDERSON Assessment: Face to Face with patient for initial transition planning/care coordination assessment. RN MONICA introduced self and role at [facility], pt voices understanding and consents to assessment. Pt is lying in bed with at bedside.Pt is A/O x4 and answers all questions appropriately at this time. Care providers, pharmacy, and demographics verified. Presentation: Sent from PCP office for renal failure/abn labs Admitting dx: DEISI on CKD stage 3, UTI? PCP: Dr. Thayer Specialists: Liz, uro; allyn Thompson Preferred Pharmacy: [facility] Insurance: [employer] MCR Prescription Benefit: yes through [employer] Living Will/HPOA: Pt reports having a LW and HPOA who is Terri. Pt is aware that this is not on file at [facility]. LNOK: , Terri Living Arrangements: Pt lives in a 2 story home with bed and bath on first floor. ADL's: Pt states he is independent with ADLs and has no concerns at home. Transportation: Pt drives and denies concerns with transportation. DME: Pt states he has a cane, walker and transport chair at home. Denies need for any further DME. SNF/ HHC: Pt denies any previous SNF but has had HHC, unsure of the name of the agency. Pt states no concerns with going home at time of dc. Pt is retired. Pt states no further concerns/needs. CM to follow for any further dc planning/needs. Advised pt to ask for CM if any further questions/concerns/needs arise, voices understanding. Pt goal: Home Plan: Home with family support.
[2020-05-03 11:31] LABS: Bedside Glucose 244 mg/dL (70-110)
[2020-05-03] MEDS: Glucerna Shake 120 ML LIQUID PO ×2 (11:31→17:46)
[2020-05-03] MEDS: 0.9% Normal Saline 1,000 ML 125 ML IV ×2 (11:35→22:50)
--- NOTE | 2020-05-03 12:57 | NT.THERAPY_ITS ---
Nutrition Therapy Report - History Nutrition Services has been consulted to:: Manage nutrient details of diet order Current diet / nutrition support order:: Cardiac - Anthropometric Measurements Height:: 5 ft 8 in Weight:: 64 kg Body Mass Index (BMI):: 21.4 - Relevant Labs Relevant Labs:: RBC 3.79 M/mm3 (4.6-6.2) L 05/03/20 05:45 Hgb 10.3 g/dL (13.0-16.5) L 05/03/20 05:45 Hct 32.7 % (40-54) L 05/03/20 05:45 MCHC 31.5 g/dL (32-36) L 05/03/20 05:45 RDW Std Deviation 44.1 fl (35.1-43.9) H 05/03/20 05:45 Immature Gran % (Auto) 1.400 % (0.0-0.9) H 05/02/20 23:09 Neut % (Auto) 81.2 % (47-70) H 05/03/20 05:45 Lymph % (Auto) 7.5 % (19-41) L 05/03/20 05:45 [place] % (Auto) 10.1 % (0-10) H 05/02/20 23:09 Absolute Lymphs (auto) 0.60 X10^3/uL (0.83-4.51) L 05/03/20 05:45 Chloride 111 mmol/L (98-107) H 05/03/20 05:45 Carbon Dioxide 20.0 mmol/L (21.0-32.0) L 05/03/20 05:45 BUN 71 mg/dL (7-18) H 05/03/20 05:45 Creatinine 5.77 mg/dL (0.70-1.30) H 05/03/20 05:45 Est GFR (MDRD) Af Amer 12 mL/min (>60) L 05/03/20 05:45 Est GFR (MDRD) Non-Af 10 mL/min (>60) L 05/03/20 05:45 Glucose 162 mg/dL (74-106) H 05/03/20 05:45 Alkaline Phosphatase 191 U/L (45-117) H 05/02/20 23:09 Troponin I 0.117 ng/mL (<0.045) H 05/02/20 23:09 Albumin 3.1 g/dL (3.2-5.0) L 05/02/20 23:09 Albumin/Globulin Ratio 0.7 RATIO (0.9-2.4) L 05/02/20 23:09 - Assessment Food / Nutrition-Related History:: Poor x 3 mo per pt at home - ate good breakfast this morning. Agreeable to ONS at [facility]. UBW: 72.575 kg - wt loss of 11.9% x 3 mo (sig for malnutrition). 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 Altered nutrition related lab values r/t kidney dysfunction aeb BUN=71, Cr=5.77. Evidence of Malnutrition Exists:: Yes Severe PCM:: Acute Illness - Nutrition Intervention Nutrition Prescription:: [id number] antonio / day (RMRx1.3). 50-60 gm pro/day (.8 gm /kg). 1600 ml/day (1 ml/antonio). - Food / Nutrient Delivery Interventions Summary of nutrition intervention:: Will continue ONS w/ [facility]. Changed diet to Regular Sodium Restriction - will hold on CHO restricted diet d/t A1c wnl. [ End ] Nutrition education provided?: No - MNT Monitoring Further MNT monitoring and evaluation required?: Yes MNT Follow-up in:: 3-5 days - if questions, please contact RD/LD at [phone]
[2020-05-03 17:51] LABS: Bedside Glucose 135 mg/dL (70-110)
[2020-05-03 21:40] LABS: Bedside Glucose 254 mg/dL (70-110)
[2020-05-03] MEDS: Atorvastatin Calcium 10 MG Tablet PO (22:39)
[2020-05-04] VITALS (15 sets, daily range): BP systolic 129–158; BP diastolic 69–83; PULSE 102–124; RESP 16–18; TEMP 36.8–37.3; O2SAT 95–97
[2020-05-04 06:31] LABS: Bedside Glucose 111 mg/dL (70-110)
[2020-05-04 06:32] LABS: Hematocrit 28.9 % (40-54); Hemoglobin 9.1 g/dL (13.0-16.5); Mean Corp Hgb Conc 31.5 g/dL (32-36); Mean Corpuscular Hgb 27.5 pg (27.0-32.0); Mean Corpuscular Volume 87.3 fL (80-94); Mean Platelet Vol. 9.1 fl (6.2-12.0); Platelet Count 202 K/mm3 (150-450); RBC Distribution Width CV 14.5 % (11.6-14.6); RBC Distribution Width SD 46.4 fl (35.1-43.9); Red Blood Count 3.31 M/mm3 (4.6-6.2); White Blood Count 8.1 K/mm3 (4.4-11.0)
[2020-05-04 06:52] LABS: Anion Gap 11 (5-15); BUN 71 mg/dL (7-18); BUN/Creat Ratio 11.7 RATIO (10-20); Calcium,Total 8.6 mg/dL (8.5-10.1); Chloride 114 mmol/L (98-107); Creatinine, Serum 6.07 mg/dL (0.70-1.30); EST Glomerular Filtration Rate 10 mL/min (>60); Est Glom Filt Rate - Afr Amer 12 mL/min (>60); Estimated Creatinine Clearance 9.55 ml/min; Glucose 115 mg/dL (74-106); Magnesium 1.9 mg/dL (1.6-2.6); Potassium 4.5 mmol/L (3.5-5.1); Sodium Level 143 mmol/L (136-145)
--- NOTE | 2020-05-04 07:52 | PN_ITS ---
Patient Problems: Active and Suspected Problems Acute kidney injury superimposed on chronic kidney disease (Acute) Reason for Visit: Acute kidney injury Subjective: Patient is a 79-year-old gentleman with history of prostate CA in remission brought to the hospital with worsening kidney function Renal ultrasound obtained demonstrated Suspected 4.8 cm mass in the base of the bladder with severe right hydronephrosis and moderate left hydronephrosis possibly from bladder outlet obstruction or ureteral vesicle junction of the stenosis. Consult subsequently placed to urology Objective: GENERAL: cooperative HEENT: Atraumatic; EYES; Anicteric, Normal Conjunctiva NECK; supple, normal thyroid, RESPIRATORY: Diminished to auscultation CARDIOVASCULAR: Regular S1 S2, GI: soft, normoactive bowel sounds, : No Renal angle tenderness; EXTREMITIES: No edema, no clubbing, MUSCULOSKELETAL: no muscle waisting NEURO: Awake; no lateralizing signs. SKIN: No Rash PSYCH; Flat affect Vitals/I&O's: Vital Signs Temp Pulse Resp BP Pulse Ox 98.4 F 123 H 16 129/69 H 97 05/04/20 01:50 05/04/20 03:33 05/04/20 01:50 05/04/20 01:50 05/04/20 01:50 Oxygen Delivery Method Room Air Weight: 69.3 kg Body Mass Index (BMI) 21.4 Finger Stick Blood Glucose 142 Intake and Output for Last 24 Hours 05/02/20 05/03/20 05/04/20 23:59 23:59 23:59 Intake Total 500 / 500 3095 / 3095 1650 / 1650 Output Total 1300 / 1300 550 / 550 Balance 500 / 500 1795 / 1795 1100 / 1100 Microbiology Past 72 Hours 05/02/20 23:14 Mucosa - Nose SARS-CoV-2 Antigen (Rapid) - Final Laboratory Results 05/03/20 05:45: Hemoglobin A1c 5.5 05/03/20 11:12: POC Glucose 244 H 05/03/20 17:42: POC Glucose 135 H 05/03/20 21:38: POC Glucose 254 H 05/04/20 06:20: WBC 8.1, RBC 3.31 L, Hgb 9.1 L, Hct 28.9 L, MCV 87.3, MCH 27.5, MCHC 31.5 L, RDW Std Deviation 46.4 H, RDW Coeff of Darian 14.5, Plt Count 202, MPV 9.1 05/04/20 06:20: Sodium 143, Potassium 4.5, Chloride 114 H, Carbon Dioxide 18.0 L , Anion Gap 11, BUN 71 H, Creatinine 6.07 H, Estim Creat Clear Calc 9.55, Est GFR (MDRD) Af Amer 12 L, Est GFR (MDRD) Non-Af 10 L, BUN/Creatinine Ratio 11.7, Glucose 115 H, Calcium 8.6, Magnesium 1.9 05/04/20 06:22: POC Glucose 111 H Current Medications Acetaminophen (Acetaminophen 325 Mg Tablet) 650 mg PO Q6H PRN PRN PRN Reason: Pain Score 1-10/Temp > 100.7 F Albuterol Sulfate (Albuterol 2.5 Mg/3 Ml Vial.Neb.) 2.5 mg INHALATION Q2H PRN PRN PRN Reason: SOB/Wheezing Atorvastatin Calcium (Atorvastatin Calcium 10 Mg Tablet) 10 mg PO QHS [facility] Last Admin: 05/03/20 22:39 Dose: 10 mg Documented by: Cholecalciferol (Cholecalciferol (Vit D3) 1,000 Unit (25mcg)) 1,000 unit PO DAILY [facility] Last Admin: 05/03/20 10:06 Dose: 1,000 unit Documented by: Dextrose (Dextrose 50%-Water 25 Gm/50 Ml Disp.Syrin) 0 gm IV X1 PRN; Protocol PRN Reason: Hypoglycemia Glucagon (Glucagon 1 Mg/Ml Syringe) 1 mg IM .X1 PRN PRN Reason: Hypoglycemia Heparin Sodium (Porcine) (Heparin Injection (Vial) 5,000 Unit/Ml Vial) 5,000 unit SC Q12 [facility] Last Admin: 05/03/20 22:48 Dose: 5,000 unit Documented by: Hydralazine HCl (Hydralazine 20 Mg/Ml Vial) 10 mg IV Q4H PRN PRN PRN Reason: SBP more than 180 mmHg Hydralazine HCl (Hydralazine 50 Mg Tablet) 50 mg PO BID [facility] Last Admin: 05/03/20 22:40 Dose: 50 mg Documented by: Ceftriaxone Sodium (Rocephin) 1 gm in 50 mls @ 100 mls/hr IV Q24H [facility] Last Infusion: 05/03/20 23:33 Dose: Infused Documented by: Sodium Chloride () 250 mls @ 15 mls/hr IV .[id number] PRN PRN Reason: Saline Flush Insulin Human Lispro (Insulin Lispro 100 Unit/Ml Insuln.Pen) 0 unit SC [facility]; Protocol Last Admin: 05/04/20 06:29 Dose: Not Given Documented by: Loperamide HCl (Loperamide 2 Mg Capsule) 2 mg PO BID [facility] Last Admin: 05/03/20 23:15 Dose: Not Given Documented by: Morphine Sulfate (Morphine 2 Mg/Ml Syringe) 2 mg IV Q3H PRN PRN PRN Reason: Pain Score 6-10 Nitroglycerin (Nitroglycerin (Inpatient Use) 0.4 Mg Tab.Subl) 0.4 mg SL Q5M PRN PRN Reason: CARDIAC/CHEST PAIN Nutritional Formula (Lactose Free) (Glucerna Shake 120 Ml Liquid) 120 ml PO TIDCM [facility] Last Admin: 05/03/20 17:46 Dose: 120 ml Documented by: Oxycodone HCl (Oxycodone 5 Mg Tablet) 5 mg PO Q4H PRN PRN PRN Reason: Pain Score 4-5 Prochlorperazine Edisylate (Prochlorperazine 10 Mg/2 Ml Vial) 5 mg IV Q4H PRN PRN PRN Reason: Breakthrough Nausea/Vomiting Senna/Docusate Sodium (Senna/Docusate Sodium 1 Tablet) 2 tablet PO BID PRN PRN PRN Reason: Constipation Sodium Chloride (0.9% Saline Lock 10 Ml Syringe) 10 - 40 ml IV UD PRN PRN Reason: SALINE FLUSH Medical Necessity - Tobacco Use Smoking Status: Former smoker Assessment/Plan All Active Problems Acute kidney injury superimposed on chronic kidney disease (Acute) Patient is a 79-year-old gentleman with history of prostate CA in remission brou ght to the hospital with worsening kidney function 1. Acute kidney injury ?Secondary to a combination of possible obstructive uropathy worsening by the use of AMADA inhibitors as well as meloxicam admitted to monitored bed started on IV fluid with subsequent monitoring of electrolytes and consultation placed to nephrology -05/04/2020; patient kidney function continues to worsen; Renal ultrasound obtained demonstrated Suspected 4.8 cm mass in the base of the bladder with severe right hydronephrosis and moderate left hydronephrosis possibly from bladder outlet obstruction or ureteral vesicle junction of the stenosis. Consult subsequently placed to urology 2. 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 Diabetes mellitus type II -patient's oral hypoglycemics held. Placed on long acting insulin, Accu-Cheks a.c. and at bedtime and covered with sliding scale insulin 4. Hypertension - Blood pressure controlled, patient is on lisinopril held in view of worsening kidney function 5. Dyslipidemia -Patient is on statin therapy, continued at home dose 6. Generalized osteoarthritis ?Patient is on meloxicam;Held in view of worsening kidney function 7. DVT prophylaxis ?SC heparin Inpatient E&M: [id number] [facility] L3
[2020-05-04] MEDS: Glucerna Shake 120 ML LIQUID PO ×3 (08:26→17:22)
[2020-05-04] MEDS: Heparin Injection (Vial) 5,000 UNIT/ML VIAL 5000 UNIT SC ×2 (08:26→21:36)
[2020-05-04] MEDS: Loperamide 2 MG Capsule PO ×2 (08:26→21:37)
[2020-05-04] MEDS: hydrALAZINE 50 MG Tablet PO ×2 (08:26→21:36)
[2020-05-04 12:35] LABS: Bedside Glucose 317 mg/dL (70-110)
[2020-05-04] MEDS: Insulin Lispro 100 UNIT/ML INSULN.PEN SC ×3 (12:36→21:45)
--- NOTE | 2020-05-04 13:37 | CT_ITS ---
STUDY: CT ABDOMEN AND PELVIS WITHOUT CONTRAST REASON FOR EXAM: Male, 79 years old. hydronephrosis RADIATION DOSAGE (If Supplied By Facility): CTDIvol = ( 6.55 ) mGy, DLP = ( 333.94 ) mGycm TECHNIQUE: Transaxial images were obtained from the dome of the diaphragm to the symphysis pubis without oral contrast, and without intravenous contrast. Sagittal and coronal images were reconstructed. Individualized dose optimization techniques were used for this CT. COMPARISON: Ultrasound 05/03/2020 FINDINGS: The visualized lung bases are unremarkable. The visualized portions of the heart are within normal limits. Normal liver. Gallstone or gallbladder wall calcification is seen at the fundus. Normal spleen. Normal pancreas. Normal bilateral adrenal glands. Relative atrophy of the right kidney as compared to the left. Moderate right hydronephrosis and hydroureter (tortuous) extends to the lower right hemipelvis (image 138 series 2) with soft tissue density extending more inferiorly (images 139-146) to the right UVJ region. This may correlate to suspected bladder mass on ultrasound. There is also left hydronephrosis and left hydroureter (proximal and mid segments) although the distal left ureter is seen entering the bladder on image 146 of series 2. Normal visualized stomach. Surgical anastomosis of small bowel in the upper abdomen. No colon wall thickening. The appendix is not seen. Mild atherosclerosis of the abdominal aorta and iliac arteries. Normal inferior vena cava. Normal retroperitoneum. There are operative changes of the perirectal pelvis with soft tissue density in the presacral pelvis adjacent to surgical sutures/clips. The fascial thickening extends along the right side to the posterior right urinary bladder (image 146 series 2). Operative changes of the anterior abdominal wall. Diffuse, heterogeneous sclerosis involving L4, L5 and S1. CT/Abdomen/Pelvis without Cont IMPRESSION: 1. Bilateral hydronephrosis and hydroureter (right more than left). 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 2. Sclerosis of L4, L5 and S1 vertebral bodies. 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 No comparison studies not available, but would be useful for further workup recommendations. Absent comparison studies, MRI may provide additional information. Electronically Signed: Carlos Goddard MD ([facility]) at 15:36 EST , Service support ,
--- NOTE | 2020-05-04 13:44 | CON.PCM_ITS ---
Problem List (1) Cancer of prostate Status: Chronic (2) Hydronephrosis Status: Acute Qualifiers: Hydronephrosis type: other Qualified Code(s): N13.39 - Other hydronephrosis Reason for Consult Date of Consultation: 05/04/20 Reason for Consultation: hydro possible bladder mass elevated creatinie History of Present Illness: The patient is a 79 year old male eith colon cancer,, h/o prostate csncre treated with XRT last psa was very low, presented with worsening renal function, and possible mass on ultrasound. Past Medical History Past Medical History (Chronic Problems): Chronic Problems Cancer of colon with rectum (Chronic) Cancer of prostate (Chronic) Allergies No Known Allergies Allergy (Verified 05/02/20 22:53) Home Medications: Ambulatory Orders Medication Instructions Recorded Atorvastatin Calcium [Lipitor] 10 mg PO QHS 12/08/19 Cholecalciferol (VIT D3) [Vitamin 1,000 unit PO DAILY 12/08/19 D] Glimepiride 4 mg PO DAILY 12/08/19 Loperamide [Imodium] 2 mg PO BID 12/08/19 Metformin HCl [Metformin ER 1,000 mg PO BID 12/08/19 Osmotic] Potassium Chloride [Klor-Con] 20 meq PO DAILY 12/08/19 Ubidecarenone/Vit E Acet [Co Q-10 1 ea PO DAILY 12/08/19 100 mg Softgel] Lisinopril [Zestril] 20 mg PO BID 05/02/20 Meloxicam 7.5 mg PO DAILY 05/02/20 Surgical History: no surgical history Smoking Status: Former smoker - *Family History Paternal History Items: Heart Disease - Father Review of Systems Constitutional: Denies: Chills, Fever, Weight Change HEENT: Denies: Head Aches, Sinus Congestion, Sinus Drainage Cardiovascular: Denies: Chest Pain, Palpitations Respiratory: Denies: Cough, Shortness of breath at rest, Sputum production Gastrointestinal: Denies: Abdominal Pain, Nausea, Vomiting Genitourinary: Denies: Dysuria Musculoskeletal: Denies: Joint Pain, Joint Tenderness Skin: Denies: Rash, Wounds Neurological: Denies: Numbness, Tingling, Focal weakness Psychiatric: Denies: Anxiety, Depression, Homicidal Ideations, Suicidal Ideations Hematologic/ Lymphatic: Denies: Easy Bruising, Easy Bleeding Physical Exam - Physical Exam Vital Signs Temp 98.2 F 05/04/20 07:50 Pulse 120 H 05/04/20 10:05 Resp 16 05/04/20 07:50 BP 158/81 H 05/04/20 07:50 Pulse Ox 97 05/04/20 08:02 Intake & Output 05/02/20 05/03/20 05/04/20 23:59 23:59 23:59 Intake Total 500 / 500 3095 / 3095 1650 / 1650 Output Total 1300 / 1300 1150 / 1150 Balance 500 / 500 1795 / 1795 500 / 500 Weight: 72.575 kg 64 kg 69.3 kg Intake: Oral 600 / 600 650 / 650 IV fluid/meds 10 / 10 Intake, IV Amount 500 / 500 2485 / 2485 1000 / 1000 0.9% Normal Saline 1,000 ML @ 885 / 885 100 mls/hr IV .Q10H [facility] Rx#: [id number] 0.9% Normal Saline 1,000 ML @ 1000 / 1000 1000 / 1000 125 mls/hr IV .Q8H [facility] Rx#: [id number] 0.9% Normal Saline 500 ML @ 500 / 500 1000 mls/hr IV .Q30M [facility] Rx#: [id number] 0.9% Normal Saline 500 ML @ 999 500 / 500 mls/hr IV .Q31M [facility] Rx#: [id number] Rocephin 1 gm In 50 ml @ 100 50 / 50 mls/hr IV Q24H [facility] Rx#:[id number] Rocephin 1 gm In 50 ml @ 100 50 / 50 mls/hr IV X1 [facility] Rx#:[id number] Output: Urine 1300 / 1300 1150 / 1150 Other: Number of Bowel Movements 1 Microbiology Past 72 Hours 05/03/20 00:10 Urine Culture - Preliminary Urine, Catheterized GNR lactose assistant manager bilingual 05/02/20 23:14 SARS-CoV-2 Antigen (Rapid) - Final Mucosa - Nose Laboratory Tests Past 24 Hrs 05/04/20 05/04/20 06:20 06:20 WBC 8.1 RBC 3.31 L Hgb 9.1 L Hct 28.9 L MCV 87.3 MCH 27.5 MCHC 31.5 L RDW Std Deviation 46.4 H RDW Coeff of Darian 14.5 Plt Count 202 MPV 9.1 Sodium 143 Potassium 4.5 Chloride 114 H Carbon Dioxide 18.0 L Anion Gap 11 BUN 71 H Creatinine 6.07 H Estim Creat Clear Calc 9.55 Est GFR (MDRD) Af Amer 12 L Est GFR (MDRD) Non-Af 10 L BUN/Creatinine Ratio 11.7 Glucose 115 H Calcium 8.6 Magnesium 1.9 Assessment/Plan All Active Problems Acute kidney injury superimposed on chronic kidney disease (Acute) Hydronephrosis (Acute) recommed 1 ct scan stone protocol yo evaluate hydro and possible bladder mass 2 place 16 fr fole to decompress urinary system 3. follow creatinie and review scan to determine next step,
--- NOTE | 2020-05-04 17:03 | PCM.PN.REN ---
Patient Problems: Active and Suspected Problems Acute kidney injury superimposed on chronic kidney disease (Acute) Hydronephrosis (Acute) Objective: Patient denies any worsening breathing. No gross hematuria. No nausea no vomiting - Physical Exam Vitals/I&O's: Vital Signs Temp Pulse Resp BP Pulse Ox 98.5 F 109 H 16 153/78 H 96 05/04/20 13:50 05/04/20 14:00 05/04/20 13:50 05/04/20 13:50 05/04/20 13:50 Oxygen Delivery Method Room Air Weight: 69.3 kg Body Mass Index (BMI) 21.4 Finger Stick Blood Glucose 142 Intake and Output for Last 24 Hours 05/02/20 05/03/20 05/04/20 23:59 23:59 23:59 Intake Total 500 / 500 3095 / 3095 1650 / 1650 Output Total 1300 / 1300 1150 / 1150 Balance 500 / 500 1795 / 1795 500 / 500 General: Alert, Oriented x3 HEENT: Atraumatic Oral: Moist Mucosa Neck: Supple, No JVD Lungs: Clear to auscultation, Normal air movement, No rhonchi, No wheeze Cardiovascular: Regular rate, Regular Rhythm, Normal S1, Normal S2 Abdomen: Bowel Sounds Present, Soft, Non Tender, Non-Distended Extremities: No clubbing, No cyanosis, No edema Skin: No rashes Musculoskeletal: No Tenderness to Palpation of Joints or Extremities Lymphatic: No Cervical, Supraclavicular, or Inguinal Adenopathy Neurological: Cranial nerves II-XII grossly intact, Neuro grossly intact Psych/Mental Status: Appropriate Microbiology Past 72 Hours 05/03/20 00:10 Urine, Catheterized Urine Culture - Preliminary GNR lactose care transition coordinator 05/02/20 23:14 Mucosa - Nose SARS-CoV-2 Antigen (Rapid) - Final Laboratory Results 05/03/20 17:42: POC Glucose 135 H 05/03/20 21:38: POC Glucose 254 H 05/04/20 06:20: WBC 8.1, RBC 3.31 L, Hgb 9.1 L, Hct 28.9 L, MCV 87.3, MCH 27.5, MCHC 31.5 L, RDW Std Deviation 46.4 H, RDW Coeff of Darian 14.5, Plt Count 202, MPV 9.1 05/04/20 06:20: Sodium 143, Potassium 4.5, Chloride 114 H, Carbon Dioxide 18.0 L, Anion Gap 11, BUN 71 H, Creatinine 6.07 H, Estim Creat Clear Calc 9.55, Est GFR (MDRD) Af Amer 12 L, Est GFR (MDRD) Non-Af 10 L, BUN/Creatinine Ratio 11.7, Glucose 115 H, Calcium 8.6, Magnesium 1.9 05/04/20 06:22: POC Glucose 111 H 05/04/20 12:16: POC Glucose 317 H Current Medications Acetaminophen (Acetaminophen 325 Mg Tablet) 650 mg PO Q6H PRN PRN PRN Reason: Pain Score 1-10/Temp > 100.7 F Albuterol Sulfate (Albuterol 2.5 Mg/3 Ml Vial.Neb.) 2.5 mg INHALATION Q2H PRN PRN PRN Reason: SOB/Wheezing Atorvastatin Calcium (Atorvastatin Calcium 10 Mg Tablet) 10 mg PO QHS [facility] Last Admin: 05/03/20 22:39 Dose: 10 mg Documented by: Cholecalciferol (Cholecalciferol (Vit D3) 1,000 Unit (25mcg)) 1,000 unit PO DAILY [facility] Last Admin: 05/04/20 08:26 Dose: 1,000 unit Documented by: Dextrose (Dextrose 50%-Water 25 Gm/50 Ml Disp.Syrin) 0 gm IV X1 PRN; Protocol PRN Reason: Hypoglycemia Glucagon (Glucagon 1 Mg/Ml Syringe) 1 mg IM .X1 PRN PRN Reason: Hypoglycemia Heparin Sodium (Porcine) (Heparin Injection (Vial) 5,000 Unit/Ml Vial) 5,000 unit SC Q12 [facility] Last Admin: 05/04/20 08:26 Dose: 5,000 unit Documented by: Hydralazine HCl (Hydralazine 20 Mg/Ml Vial) 10 mg IV Q4H PRN PRN PRN Reason: SBP more than 180 mmHg Hydralazine HCl (Hydralazine 50 Mg Tablet) 50 mg PO BID [facility] Last Admin: 05/04/20 08:26 Dose: 50 mg Documented by: Ceftriaxone Sodium (Rocephin) 1 gm in 50 mls @ 100 mls/hr IV Q24H [facility] Last Infusion: 05/03/20 23:33 Dose: Infused Documented by: Sodium Chloride () 250 mls @ 15 mls/hr IV .[id number] PRN PRN Reason: Saline Flush Insulin Human Lispro (Insulin Lispro 100 Unit/Ml Insuln.Pen) 0 unit SC [facility]; Protocol Last Admin: 05/04/20 12:36 Dose: 6 units Documented by: Loperamide HCl (Loperamide 2 Mg Capsule) 2 mg PO BID [facility] Last Admin: 05/04/20 08:26 Dose: 2 mg Documented by: Morphine Sulfate (Morphine 2 Mg/Ml Syringe) 2 mg IV Q3H PRN PRN PRN Reason: Pain Score 6-10 Nitroglycerin (Nitroglycerin (Inpatient Use) 0.4 Mg Tab.Subl) 0.4 mg SL Q5M PRN PRN Reason: CARDIAC/CHEST PAIN Nutritional Formula (Lactose Free) (Glucerna Shake 120 Ml Liquid) 120 ml PO TIDCM [facility] Last Admin: 05/04/20 12:36 Dose: 120 ml Documented by: Oxycodone HCl (Oxycodone 5 Mg Tablet) 5 mg PO Q4H PRN PRN PRN Reason: Pain Score 4-5 Prochlorperazine Edisylate (Prochlorperazine 10 Mg/2 Ml Vial) 5 mg IV Q4H PRN PRN PRN Reason: Breakthrough Nausea/Vomiting Senna/Docusate Sodium (Senna/Docusate Sodium 1 Tablet) 2 tablet PO BID PRN PRN PRN Reason: Constipation Sodium Chloride (0.9% Saline Lock 10 Ml Syringe) 10 - 40 ml IV UD PRN PRN Reason: SALINE FLUSH Medical Necessity - Tobacco Use Smoking Status: Former smoker Assessment/Plan All Active Problems Acute kidney injury superimposed on chronic kidney disease (Acute) Hydronephrosis (Acute) DEISI on a kidney disease stage III. Baseline creatinine around 1.6 to 2.1 mg deciliter. Acute kidney injury from post renal as evident by CAT scan of abdomen and pelvis which showed bilateral hydronephrosis right more than left. Creatinine remained significantly elevated at 6.0 mg deciliter. Not oliguric. Urology is consulted and planning to place Judd catheter. Further work-up and treatment as per urology. There is no need for renal replacement therapy. Please avoid NSAIDs and IV contrast. Avoid AMADA inhibitor or ARB. Recheck renal function panel in the morning Urethral stricture. Patient has been doing self cath. Now is going to have Judd catheter. Hypertension. Blood pressure is acceptable. Please continue holding home lisinopril. Currently on hydralazine Metabolic acidosis. Mild. Likely from acute kidney injury. There is no need for bicarbonate replacement. Continue to monitor bicarb level. We will continue to follow. Please call if any question
[2020-05-04 17:11] LABS: Bedside Glucose 191 mg/dL (70-110)
[2020-05-04] MEDS: Ceftriaxone 1 GM/50 ML BAG IV (21:35)
[2020-05-04] MEDS: Atorvastatin Calcium 10 MG Tablet PO (21:36)
[2020-05-04 21:56] LABS: Bedside Glucose 165 mg/dL (70-110)
[2020-05-05] VITALS (18 sets, daily range): BP systolic 132–177; BP diastolic 60–80; PULSE 106–121; RESP 15–18; TEMP 36.2–37.5; O2SAT 94–97; BMI 23.9
[2020-05-05 06:52] LABS: Hematocrit 29.4 % (40-54); Hemoglobin 9.1 g/dL (13.0-16.5); Mean Corpuscular Hgb 26.9 pg (27.0-32.0); Mean Platelet Vol. 8.8 fl (6.2-12.0); Platelet Count 211 K/mm3 (150-450); RBC Distribution Width CV 14.6 % (11.6-14.6); RBC Distribution Width SD 46.7 fl (35.1-43.9); Red Blood Count 3.38 M/mm3 (4.6-6.2); White Blood Count 7.1 K/mm3 (4.4-11.0)
[2020-05-05 07:11] LABS: Bedside Glucose 153 mg/dL (70-110)
[2020-05-05 07:20] LABS: Anion Gap 13 (5-15); BUN 68 mg/dL (7-18); BUN/Creat Ratio 10.7 RATIO (10-20); Calcium,Total 8.9 mg/dL (8.5-10.1); Chloride 112 mmol/L (98-107); Creatinine, Serum 6.33 mg/dL (0.70-1.30); EST Glomerular Filtration Rate 9 mL/min (>60); Est Glom Filt Rate - Afr Amer 11 mL/min (>60); Estimated Creatinine Clearance 9.15 ml/min; Glucose 165 mg/dL (74-106); Potassium 4.2 mmol/L (3.5-5.1); Sodium Level 144 mmol/L (136-145)
--- NOTE | 2020-05-05 07:36 | PN_ITS ---
Patient Problems: Active and Suspected Problems Acute kidney injury superimposed on chronic kidney disease (Acute) Hydronephrosis (Acute) Reason for Visit: Obstructive uropathy Subjective: Patient is a 79-year-old gentleman with history of prostate CA in remission brought to the hospital with worsening kidney function Renal ultrasound obtained demonstrated Suspected 4.8 cm mass in the base of the bladder with severe right hydronephrosis and moderate left hydronephrosis possibly from bladder outlet obstruction or ureteral vesicle junction of the stenosis. Consult subsequently placed to urology ?05/05/2020; patient was seen in consultation by Dr Hill with urology requested for CT of the abdomen and pelvis which demonstrated Bilateral hydronephrosis and hydroureter (right more than left). Soft tissue density in the right hemipelvis in the region of the distal right ureter/right UVJ could represent neoplasm or soft tissue fibrosis (contiguous with presacral, likely post radiation fibrosis) . Plan is for patient patient to undergo bilateral stent placement with possible biopsy of the mass if visible Objective: GENERAL: cooperative HEENT: Atraumatic; EYES; Anicteric, Normal Conjunctiva NECK; supple, normal thyroid, RESPIRATORY: Diminished to auscultation CARDIOVASCULAR: Regular S1 S2, GI: soft, normoactive bowel sounds, : No Renal angle tenderness; EXTREMITIES: No edema, no clubbing, MUSCULOSKELETAL: no muscle waisting NEURO: Awake; no lateralizing signs. SKIN: No Rash PSYCH; Flat affect Vitals/I&O's: Vital Signs Temp Pulse Resp BP Pulse Ox 98.9 F 117 H 16 132/61 H 96 05/05/20 03:35 05/05/20 03:35 05/05/20 03:35 05/05/20 03:35 05/05/20 03:35 Oxygen Delivery Method Room Air Weight: 71.5 kg Body Mass Index (BMI) 21.4 Finger Stick Blood Glucose 142 Intake and Output for Last 24 Hours 05/03/20 05/04/20 05/06/20 23:59 23:59 00:59 Intake Total 3095 / 3095 1940 / 1940 480 / 480 Output Total 1300 / 1300 2800 / 2800 1950 / 1950 Balance 1795 / 1795 -860 / -860 -1470 / -1470 Microbiology Past 72 Hours 05/03/20 00:10 Urine, Catheterized Urine Culture - Final Klebsiella pneumoniae sp pneum 05/03/20 00:50 Blood Culture (Wb) - Anticubital Left Blood Culture - Preliminary No growth in 48 hours. 05/03/20 00:43 Blood Culture (Wb) - Right Forearm Blood Culture - Preliminary No growth in 48 hours. 05/02/20 23:14 Mucosa - Nose SARS-CoV-2 Antigen (Rapid) - Final Laboratory Results 05/04/20 06:20: Sodium 143, Potassium 4.5, Chloride 114 H, Carbon Dioxide 18.0 L , Anion Gap 11, BUN 71 H, Creatinine 6.07 H, Estim Creat Clear Calc 9.55, Est GFR (MDRD) Af Amer 12 L, Est GFR (MDRD) Non-Af 10 L, BUN/Creatinine Ratio 11.7, Glucose 115 H, Calcium 8.6, Magnesium 1.9 05/04/20 12:16: POC Glucose 317 H 05/04/20 16:30: POC Glucose 191 H 05/04/20 21:44: POC Glucose 165 H 05/05/20 06:38: WBC 7.1, RBC 3.38 L, Hgb 9.1 L, Hct 29.4 L, MCV 87.0, MCH 26.9 L , MCHC 31.0 L, RDW Std Deviation 46.7 H, RDW Coeff of Darian 14.6, Plt Count 211, MPV 8.8 05/05/20 06:38: Sodium 144, Potassium 4.2, Chloride 112 H, Carbon Dioxide 19.0 L , Anion Gap 13, BUN 68 H, Creatinine 6.33 H, Estim Creat Clear Calc 9.15, Est GFR (MDRD) Af Amer 11 L, Est GFR (MDRD) Non-Af 9 L, BUN/Creatinine Ratio 10.7, Glucose 165 H, Calcium 8.9 05/05/20 06:43: POC Glucose 153 H Current Medications Acetaminophen (Acetaminophen 325 Mg Tablet) 650 mg PO Q6H PRN PRN PRN Reason: Pain Score 1-10/Temp > 100.7 F Albuterol Sulfate (Albuterol 2.5 Mg/3 Ml Vial.Neb.) 2.5 mg INHALATION Q2H PRN PRN PRN Reason: SOB/Wheezing Atorvastatin Calcium (Atorvastatin Calcium 10 Mg Tablet) 10 mg PO QHS [facility] Last Admin: 05/04/20 21:36 Dose: 10 mg Documented by: Cholecalciferol (Cholecalciferol (Vit D3) 1,000 Unit (25mcg)) 1,000 unit PO DAILY [facility] Last Admin: 05/04/20 08:26 Dose: 1,000 unit Documented by: Dextrose (Dextrose 50%-Water 25 Gm/50 Ml Disp.Syrin) 0 gm IV X1 PRN; Protocol PRN Reason: Hypoglycemia Glucagon (Glucagon 1 Mg/Ml Syringe) 1 mg IM .X1 PRN PRN Reason: Hypoglycemia Heparin Sodium (Porcine) (Heparin Injection (Vial) 5,000 Unit/Ml Vial) 5,000 unit SC Q12 [facility] Last Admin: 05/04/20 21:36 Dose: 5,000 unit Documented by: Hydralazine HCl (Hydralazine 20 Mg/Ml Vial) 10 mg IV Q4H PRN PRN PRN Reason: SBP more than 180 mmHg Hydralazine HCl (Hydralazine 50 Mg Tablet) 50 mg PO BID [facility] Last Admin: 05/04/20 21:36 Dose: 50 mg Documented by: Ceftriaxone Sodium (Rocephin) 1 gm in 50 mls @ 100 mls/hr IV Q24H [facility] Last Infusion: 05/04/20 22:05 Dose: Infused Documented by: Sodium Chloride () 250 mls @ 15 mls/hr IV .[id number] PRN PRN Reason: Saline Flush Insulin Human Lispro (Insulin Lispro 100 Unit/Ml Insuln.Pen) 0 unit SC ACHS [facility]; Protocol Last Admin: 05/04/20 21:45 Dose: 2 units Documented by: Loperamide HCl (Loperamide 2 Mg Capsule) 2 mg PO BID [facility] Last Admin: 05/04/20 21:37 Dose: 2 mg Documented by: Morphine Sulfate (Morphine 2 Mg/Ml Syringe) 2 mg IV Q3H PRN PRN PRN Reason: Pain Score 6-10 Nitroglycerin (Nitroglycerin (Inpatient Use) 0.4 Mg Tab.Subl) 0.4 mg SL Q5M PRN PRN Reason: CARDIAC/CHEST PAIN Nutritional Formula (Lactose Free) (Glucerna Shake 120 Ml Liquid) 120 ml PO TIDCM [facility] Last Admin: 05/04/20 17:22 Dose: 120 ml Documented by: Oxycodone HCl (Oxycodone 5 Mg Tablet) 5 mg PO Q4H PRN PRN PRN Reason: Pain Score 4-5 Prochlorperazine Edisylate (Prochlorperazine 10 Mg/2 Ml Vial) 5 mg IV Q4H PRN PRN PRN Reason: Breakthrough Nausea/Vomiting Senna/Docusate Sodium (Senna/Docusate Sodium 1 Tablet) 2 tablet PO BID PRN PRN PRN Reason: Constipation Sodium Chloride (0.9% Saline Lock 10 Ml Syringe) 10 - 40 ml IV UD PRN PRN Reason: SALINE FLUSH Medical Necessity - Tobacco Use Smoking Status: Former smoker Assessment/Plan All Active Problems Acute kidney injury superimposed on chronic kidney disease (Acute) Hydronephrosis (Acute) Patient is a 79-year-old gentleman with history of prostate CA in remission brought to the hospital with worsening kidney function 1. Acute kidney injury ?Secondary to a combination of possible obstructive uropathy worsening by the use of AMADA inhibitors as well as meloxicam admitted to monitored bed started on IV fluid with subsequent monitoring of electrolytes and consultation placed to nephrology -05/04/2020; patient kidney function continues to worsen; Renal ultrasound obtained demonstrated Suspected 4.8 cm mass in the base of the bladder with severe right hydronephrosis and moderate left hydronephrosis possibly from bladder outlet obstruction or ureteral vesicle junction of the stenosis. Consult subsequently placed to urology - 05/05/2020; patient was seen in consultation by Dr Hill with urology requested for CT of the abdomen and pelvis which demonstrated Bilateral hydronephrosis and hydroureter (right more than left). 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 Plan is for patient patient to undergo bilateral stent placement with possible biopsy of the mass if visible 2. Acute cystitis ?Patient started on IV Rocephin ?05/04/2020; urine culture ; GNR lactose counseling center director -Urine culture positive for Klebsiella pneumoniae sp pneum 3. Diabetes mellitus type II -patient's oral hypoglycemics held. Placed on long acting insulin, Accu-Cheks a.c. and at bedtime and covered with sliding scale insulin 4. Hypertension - Blood pressure controlled, patient is on lisinopril held in view of worsening kidney function 5. Dyslipidemia -Patient is on statin therapy, continued at home dose 6. Generalized osteoarthritis ?Patient is on meloxicam;Held in view of worsening kidney function 7. DVT prophylaxis ?SC heparin Clinical Impression(s) from Imaging Studies Abdomen/Pelvis CT 05/04/20 13:37 IMPRESSION: 1. Bilateral hydronephrosis and hydroureter (right more than left). 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 2. Sclerosis of L4, L5 and S1 vertebral bodies. 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 No comparison studies not available, but would be useful for further workup recommendations. Absent comparison studies, MRI may provide additional information. Electronically Signed: Carlos Goddard MD ([place]) at 15:36 EST , Service support , Microbiology 05/03/20 00:10 Urine Culture - Final Urine, Catheterized Klebsiella pneumoniae sp pneum 05/03/20 00:50 Blood Culture - Preliminary Blood Culture (Wb) - Anticubital Left No growth in 48 hours. 05/03/20 00:43 Blood Culture - Preliminary Blood Culture (Wb) - Right Forearm No growth in 48 hours. Inpatient E&M: [id number] [facility] Hosp L3
--- NOTE | 2020-05-05 09:02 | PCM.CONS.B ---
Problem List (1) Cancer of prostate Status: Chronic (2) Hydronephrosis Status: Acute Qualifiers: Hydronephrosis type: other Qualified Code(s): N13.39 - Other hydronephrosis - Consult Date of Consult: 05/05/20 79-year-old male yesterday underwent a CAT scan demonstrated distended bladder bilateral hydronephrosis what appeared to be a mass within the right ureter and may not be visible within the bladder. He is n.p.o. We will get consent taken to surgery today for bilateral stent placement possible biopsy of the mass is visible but is possible this mass may be with inside the ureter and may need to bring him back to do ureteroscopy for now given the acuteness of the situation we just can to place stents bilaterally to resolve the acute renal insufficiency and stabilizing before we do any surgery more invasive. If I can do a biopsy today if there is a visible tumor I will. N.p.o. we will get consent.
--- NOTE | 2020-05-05 10:49 | OP.PCM_ITS ---
Problem List (1) Cancer of prostate Status: Chronic (2) Hydronephrosis Status: Acute Qualifiers: Hydronephrosis type: other Qualified Code(s): N13.39 - Other hydronephrosis Report of Operation Date of Procedure: 05/05/20 Pre-Operative Diagnosis: Bilateral hydronephrosis possible bladder mass Post-Operative Diagnosis: Same Surgery/Procedure Performed:: Cystoscopy bilateral retrograde pyelograms bilateral stent placement Description of Surgical Findings:: Patient was taken back to the operating room after induction of general anesthesia, the patient was placed in dorsolithotomy position. The urethra and genitals were prepped and draped in usual sterile fashion. Using a 21 Bulgarian rigid cystourethroscope the entire length of the urethra was normal then went into the bladder. The anatomy was completely distorted from the very large distended trabeculated bladder, no mass was seen inside the bladder, just very distended trabeculated bladder, took an extremely long time to identify the left and right ureteral orifice. I then first cannulated the left ureteral orifice using a 70 degree lens and deflecting bridge bridge find the ureteral orifice and extremely difficult to get the wire up on the left side. I then cannulated the left orifice and advanced a wire up into the kidney. I then backloaded a 5 Bulgarian open ended catheter over the wire and injected contrast to delineate the anatomy. After the retrograde was performed I then used fluoroscopic images and guidance to advanced a wire up into the kidney and over the 0.038 glidewire I advanced a 6 Bulgarian by 26 cm double pigtail stent. I then pulled the 0.038 Glidewire off and the stent coiled in the kidney bladder good position. The bladder was then drained. We confirmed the position of the stent by fluoroscopy. I then Identified the trigone the left and right ureteral orifice. I then cannulated the right orifice again using a 70 degree lens and deflecting bridge in order to cannulate the right ureteral orifice and again it was very difficult to place the wire but eventually was able to advance a wire up into the kidney. I then backloaded a 5 Bulgarian open ended catheter over the wire and injected contrast to delineate the anatomy. After the retrograde was performed I then used fluoroscopic images and guidance to advanced a wire up into the kidney and over the 0.038 glidewire I advanced a 6 Bulgarian by 26 cm double pigtail stent. I then pulled the 0.038 Glidewire off and the stent coiled in the kidney bladder good position. The bladder was then drained. We confirmed the position of the stent by fluoroscopy. Patient anesthetic was reversed and was taken back to the PACU in good condition. Type of Anesthesia:: Local MAC Drains: Bilateral stent, Judd - Admit VTE Documentation VTE Present on Admission: No VTE Mechan Device Prophylaxis: SCD's
--- NOTE | 2020-05-05 10:54 | PCM.CONS.B ---
Problem List (1) Cancer of prostate Status: Chronic (2) Hydronephrosis Status: Acute Qualifiers: Hydronephrosis type: other Qualified Code(s): N13.39 - Other hydronephrosis - Consult Date of Consult: 05/05/20 Patient underwent cystoscopy and very difficult placement of stents bilaterally very distended trabeculated bladder but I did not see a mass in the bladder no mass in the ureter on retrograde. Probably will need a CT-guided biopsy of this mass to confirm its not malignancy which can be done by radiology.
[2020-05-05] MEDS: hydrALAZINE 50 MG Tablet PO ×2 (11:46→22:11)
[2020-05-05] MEDS: Insulin Lispro 100 UNIT/ML INSULN.PEN SC ×3 (12:19→22:12)
[2020-05-05 12:25] LABS: Bedside Glucose 271 mg/dL (70-110)
[2020-05-05 16:36] LABS: Bedside Glucose 253 mg/dL (70-110)
[2020-05-05] MEDS: Heparin Injection (Vial) 5,000 UNIT/ML VIAL 5000 UNIT SC (22:12)
[2020-05-05] MEDS: Loperamide 2 MG Capsule PO (22:12)
[2020-05-05] MEDS: Atorvastatin Calcium 10 MG Tablet PO (22:12)
[2020-05-05] MEDS: Ceftriaxone 1 GM/50 ML BAG IV (22:12)
[2020-05-05] MEDS: 0.9% Saline Lock 10 ML Syringe IV (22:17)
[2020-05-05 23:06] LABS: Bedside Glucose 196 mg/dL (70-110)
[2020-05-06] VITALS (10 sets, daily range): BP systolic 121–149; BP diastolic 50–66; PULSE 100–119; RESP 16–18; TEMP 36.5–37.4; O2SAT 98–99
[2020-05-06 06:22] LABS: Hematocrit 30.8 % (40-54); Hemoglobin 9.6 g/dL (13.0-16.5); Mean Corp Hgb Conc 31.2 g/dL (32-36); Mean Corpuscular Volume 86.8 fL (80-94); Mean Platelet Vol. 9.2 fl (6.2-12.0); Platelet Count 245 K/mm3 (150-450); RBC Distribution Width CV 14.5 % (11.6-14.6); RBC Distribution Width SD 46.5 fl (35.1-43.9); Red Blood Count 3.55 M/mm3 (4.6-6.2); White Blood Count 7.6 K/mm3 (4.4-11.0)
[2020-05-06 06:31] LABS: International Normalized Ratio 1.2; Prothrombin Time (Protime)PT. 14.2 SECONDS (11.7-14.9)
[2020-05-06 06:32] LABS: Partial Thromboplast Time 33.1 Seconds (24.1-36.2)
[2020-05-06 06:47] LABS: Anion Gap 8 (5-15); BUN 54 mg/dL (7-18); BUN/Creat Ratio 9.7 RATIO (10-20); Calcium,Total 8.9 mg/dL (8.5-10.1); Chloride 111 mmol/L (98-107); Creatinine, Serum 5.59 mg/dL (0.70-1.30); EST Glomerular Filtration Rate 11 mL/min (>60); Est Glom Filt Rate - Afr Amer 13 mL/min (>60); Estimated Creatinine Clearance 10.37 ml/min; Glucose 176 mg/dL (74-106); Potassium 3.6 mmol/L (3.5-5.1); Sodium Level 141 mmol/L (136-145)
[2020-05-06 07:05] LABS: Bedside Glucose 168 mg/dL (70-110)
--- NOTE | 2020-05-06 07:42 | PCM.CONS.B ---
Problem List (1) Cancer of prostate Status: Chronic (2) Hydronephrosis Status: Acute Qualifiers: Hydronephrosis type: other Qualified Code(s): N13.39 - Other hydronephrosis - Consult Date of Consult: 05/06/20 79-year-old male status post bilateral stent placements yesterday in the OR. Were difficult stent placements because of distended bladder distorted anatomy however the were incorrect position. Creatinine is down a little bit this morning hopefully will improve some more. I've ordered a CT guided biopsy of this supposedly mass in the pelvis. On cystoscopy I did not see a mass. He'll need a follow-up with me after discharge as an outpatient. Call me with questions.
--- NOTE | 2020-05-06 08:00 | CT_ITS ---
STUDY: CT PELVIS WITHOUT CONTRAST REASON FOR EXAM: Male, 79 years old. Mass seen on ct scan. -- EVAL POST STENT PLACEMENT RADIATION DOSAGE (If Supplied By Facility): CTDIvol = ( 23.88 ) mGy, DLP = ( 899.01 ) mGycm TECHNIQUE: Transaxial imaging of the pelvis was performed with oral contrast, and without intravenous administration of contrast material. Individualized dose optimization techniques were used for this CT. COMPARISON: Comparison is made with prior examination dated 05/04/2020. FINDINGS: A MEJIA catheter is seen within the urinary bladder. The distal tips of the bilateral ureteral stents are seen at the base of the bladder. The bladder is diffusely thickened. There is circumferential wall thickening of the distal portion of the right ureter at the level of the ureterovesical junction. Normal visualized small intestine. Surgical anastomotic line is seen at the level of the rectum. Scattered sigmoid diverticula. There is no pelvic fluid. There is no pelvic mass lesion or lymphadenopathy. Normal visualized pelvic arteries. Small bilateral inguinal hernias containing fat. There are diffuse degenerative changes of the visualized lumbar spine. CT/Pelvis without IV Contrast IMPRESSION: Diffusely thickened irregular appearance of the bladder. Diffuse circumferential thickening of the distal portion of the right ureter at the level of the ureterovesical junction. Electronically Signed: Michael Cormier MD at 9:20 EDT , Service support ,
[2020-05-06] MEDS: hydrALAZINE 50 MG Tablet PO ×2 (09:22→21:48)
[2020-05-06 11:21] LABS: Bedside Glucose 330 mg/dL (70-110)
[2020-05-06] MEDS: Insulin Lispro 100 UNIT/ML INSULN.PEN SC ×3 (11:28→21:55)
[2020-05-06] MEDS: Glucerna Shake 120 ML LIQUID PO ×2 (11:37→16:16)
--- NOTE | 2020-05-06 11:40 | PCM.PN.REN ---
Patient Problems: Active and Suspected Problems Acute kidney injury superimposed on chronic kidney disease (Acute) Hydronephrosis (Acute) Subjective: Patient has headache No nausea No vomiting - Physical Exam Vitals/I&O's: Vital Signs Temp Pulse Resp BP Pulse Ox 99.3 F H 115 H 18 149/59 H 99 05/06/20 09:13 05/06/20 09:22 05/06/20 09:13 05/06/20 09:22 05/06/20 09:13 Oxygen Delivery Method Room Air Weight: 71 kg Body Mass Index (BMI) 23.9 Finger Stick Blood Glucose 142 Intake and Output for Last 24 Hours 05/04/20 05/05/20 05/06/20 22:59 23:59 23:59 Intake Total Output Total 2049 Balance -2049 / General: Alert, Oriented x3 HEENT: Atraumatic, PERRLA Oral: Moist Mucosa Neck: Supple, No JVD Lungs: Clear to auscultation, Normal air movement, No rhonchi Cardiovascular: Regular rate, Regular Rhythm, Normal S1, Normal S2 Abdomen: Bowel Sounds Present, Soft, Non Tender, Non-Distended Extremities: No clubbing, No cyanosis, Edema - +1 edema of LE Skin: No rashes Neurological: Cranial nerves II-XII grossly intact, Neuro grossly intact Psych/Mental Status: Appropriate Microbiology Past 72 Hours 05/03/20 00:10 Urine, Catheterized Urine Culture - Final Klebsiella pneumoniae sp pneum 05/03/20 00:50 Blood Culture (Wb) - Anticubital Left Blood Culture - Preliminary No growth in 48 hours. 05/03/20 00:43 Blood Culture (Wb) - Right Forearm Blood Culture - Preliminary No growth in 48 hours. Laboratory Results 05/05/20 12:17: POC Glucose 271 H 05/05/20 16:25: POC Glucose 253 H 05/05/20 22:10: POC Glucose 196 H 05/06/20 06:00: WBC 7.6, RBC 3.55 L, Hgb 9.6 L, Hct 30.8 L, MCV 86.8, MCH 27.0, MCHC 31.2 L, RDW Std Deviation 46.5 H, RDW Coeff of Darian 14.5, Plt Count 245, MPV 9.2 05/06/20 06:00: Sodium 141, Potassium 3.6, Chloride 111 H, Carbon Dioxide 22.0, Anion Gap 8, BUN 54 H, Creatinine 5.59 H, Estim Creat Clear Calc 10.37, Est GFR (MDRD) Af Amer 13 L, Est GFR (MDRD) Non-Af 11 L, BUN/Creatinine Ratio 9.7 L, Glucose 176 H, Calcium 8.9 05/06/20 06:00: PT 14.2, INR 1.2, APTT 33.1 05/06/20 06:57: POC Glucose 168 H 05/06/20 11:10: POC Glucose 330 H Current Medications Acetaminophen (Acetaminophen 325 Mg Tablet) 650 mg PO Q6H PRN PRN PRN Reason: Pain Score 1-10/Temp > 100.7 F Albuterol Sulfate (Albuterol 2.5 Mg/3 Ml Vial.Neb.) 2.5 mg INHALATION Q2H PRN PRN PRN Reason: SOB/Wheezing Atorvastatin Calcium (Atorvastatin Calcium 10 Mg Tablet) 10 mg PO QHS [facility] Last Admin: 05/05/20 22:12 Dose: 10 mg Documented by: Cholecalciferol (Cholecalciferol (Vit D3) 1,000 Unit (25mcg)) 1,000 unit PO DAILY [facility] Last Admin: 05/06/20 09:22 Dose: 1,000 unit Documented by: Dextrose (Dextrose 50%-Water 25 Gm/50 Ml Disp.Syrin) 0 gm IV X1 PRN; Protocol PRN Reason: Hypoglycemia Glucagon (Glucagon 1 Mg/Ml Syringe) 1 mg IM .X1 PRN PRN Reason: Hypoglycemia Heparin Sodium (Porcine) (Heparin Injection (Vial) 5,000 Unit/Ml Vial) 5,000 unit SC Q12 [facility] Last Admin: 05/06/20 07:11 Dose: Not Given Documented by: Hydralazine HCl (Hydralazine 20 Mg/Ml Vial) 10 mg IV Q4H PRN PRN PRN Reason: SBP more than 180 mmHg Hydralazine HCl (Hydralazine 50 Mg Tablet) 50 mg PO BID [facility] Last Admin: 05/06/20 09:22 Dose: 50 mg Documented by: Ceftriaxone Sodium (Rocephin) 1 gm in 50 mls @ 100 mls/hr IV Q24H [facility] Last Infusion: 05/05/20 22:42 Dose: Infused Documented by: Sodium Chloride () 250 mls @ 15 mls/hr IV .[id number] PRN PRN Reason: Saline Flush Insulin Human Lispro (Insulin Lispro 100 Unit/Ml Insuln.Pen) 0 unit SC [facility]; Protocol Last Admin: 05/06/20 11:28 Dose: 8 units Documented by: Loperamide HCl (Loperamide 2 Mg Capsule) 2 mg PO BID [facility] Last Admin: 05/06/20 09:21 Dose: Not Given Documented by: Morphine Sulfate (Morphine 2 Mg/Ml Syringe) 2 mg IV Q3H PRN PRN PRN Reason: Pain Score 6-10 Nitroglycerin (Nitroglycerin (Inpatient Use) 0.4 Mg Tab.Subl) 0.4 mg SL Q5M PRN PRN Reason: CARDIAC/CHEST PAIN Nutritional Formula (Lactose Free) (Glucerna Shake 120 Ml Liquid) 120 ml PO TIDCM [facility] Last Admin: 05/06/20 11:37 Dose: 120 ml Documented by: Oxycodone HCl (Oxycodone 5 Mg Tablet) 5 mg PO Q4H PRN PRN PRN Reason: Pain Score 4-5 Prochlorperazine Edisylate (Prochlorperazine 10 Mg/2 Ml Vial) 5 mg IV Q4H PRN PRN PRN Reason: Breakthrough Nausea/Vomiting Senna/Docusate Sodium (Senna/Docusate Sodium 1 Tablet) 2 tablet PO BID PRN PRN PRN Reason: Constipation Sodium Chloride (0.9% Saline Lock 10 Ml Syringe) 10 - 40 ml IV UD PRN PRN Reason: SALINE FLUSH Last Admin: 05/05/20 22:17 Dose: 10 ml Documented by: Medical Necessity - Tobacco Use Smoking Status: Former smoker Assessment/Plan All Active Problems Acute kidney injury superimposed on chronic kidney disease (Acute) Hydronephrosis (Acute) DEISI on a kidney disease stage III. Baseline creatinine around 1.6 to 2.1 mg deciliter. Acute kidney injury from post renal as evident by CAT scan of abdomen and pelvis which showed bilateral hydronephrosis right more than left. s/p cystoscopy with B/L ureter stents placement on 05/05 Kidney function is better today Post obstruction polyuria is expected and should resolve in 24-48 hrs There is no need for renal replacement therapy. Please avoid NSAIDs and IV contrast. Avoid AMADA inhibitor or ARB. Recheck renal function panel in the morning Urethral stricture. Patient has been doing self cath. Now has Judd catheter. B/L hydronephrosis with pelvis mass. s/p B/L ureters stent placement Mass Bx done on 05/06 Will defer management to urology service Hypertension. Blood pressure is acceptable. Please continue holding home lisinopril. Currently on hydralazine Metabolic acidosis. Mild. Likely from acute kidney injury. Better There is no need for bicarbonate replacement. Continue to monitor bicarb level. We will continue to follow. Please call if any question
--- NOTE | 2020-05-06 14:39 | CASEMGMT ---
Addendum entered by Araceli Cuellar 05/07/20 14:55: This RN CM back to room and pt/ state they would like [facility] at discharge. Call to Neha at [facility] and updated on referral at this time, voices understanding and will call this RN CM back. Gilson HERRON CM Original Note: Pt qualifies for palliative referral via palliative screening tool and Dr. Salas is agreeable to referral. Referral faxed to palliative and palliative notified of referral as well. CM to follow. Gilson HERRON CM
[2020-05-06 16:26] LABS: Bedside Glucose 188 mg/dL (70-110)
--- NOTE | 2020-05-06 16:53 | PN_ITS ---
Patient Problems: Active and Suspected Problems Acute kidney injury superimposed on chronic kidney disease (Acute) Hydronephrosis (Acute) Subjective: States he feels fine, and is good to go home and that he is safe with ambulation. Vitals/I&O's: Vital Signs Temp Pulse Resp BP Pulse Ox 97.7 F L 119 H 18 121/56 H 99 05/06/20 15:15 05/06/20 15:15 05/06/20 15:15 05/06/20 15:15 05/06/20 15:15 Oxygen Delivery Method Room Air Weight: 156 lb 8.451 oz Body Mass Index (BMI) 23.9 Finger Stick Blood Glucose 142 Intake and Output for Last 24 Hours 05/04/20 05/05/20 05/06/20 22:59 23:59 23:59 Intake Total Output Total 2750 / 2750 Balance -2750 / -2750 General: Alert, Oriented x3, Cooperative, No apparent distress HEENT: Atraumatic, PERRLA, EOMI, Normocephalic Oral: Moist Mucosa Neck: Supple, No JVD Lungs: Clear to auscultation, Normal air movement, No rhonchi, No wheeze, No rales Cardiovascular: Regular rate, Regular Rhythm, Normal S1, Normal S2, No murmurs Abdomen: Soft, Non Tender, Non-Distended, No Hepato-splenomegaly Extremities: No edema, Capillary Refill Less than 3 Seconds Musculoskeletal: - - Right calf is smaller than left calf this been going on for several months he says he has difficulty walking with his on his right leg Neurological: Neuro grossly intact, Sensory exam intact to light touch and pain Psych/Mental Status: Normal Affect, Appropriate Microbiology Past 72 Hours 05/03/20 00:10 Urine, Catheterized Urine Culture - Final Klebsiella pneumoniae sp pneum 05/03/20 00:50 Blood Culture (Wb) - Anticubital Left Blood Culture - Preliminary No growth in 48 hours. 05/03/20 00:43 Blood Culture (Wb) - Right Forearm Blood Culture - Preliminary No growth in 48 hours. Laboratory Results 05/05/20 22:10: POC Glucose 196 H 05/06/20 06:00: WBC 7.6, RBC 3.55 L, Hgb 9.6 L, Hct 30.8 L, MCV 86.8, MCH 27.0, MCHC 31.2 L, RDW Std Deviation 46.5 H, RDW Coeff of Darian 14.5, Plt Count 245, MPV 9.2 05/06/20 06:00: Sodium 141, Potassium 3.6, Chloride 111 H, Carbon Dioxide 22.0, Anion Gap 8, BUN 54 H, Creatinine 5.59 H, Estim Creat Clear Calc 10.37, Est GFR (MDRD) Af Amer 13 L, Est GFR (MDRD) Non-Af 11 L, BUN/Creatinine Ratio 9.7 L, Glucose 176 H, Calcium 8.9 05/06/20 06:00: PT 14.2, INR 1.2, APTT 33.1 05/06/20 06:57: POC Glucose 168 H 05/06/20 11:10: POC Glucose 330 H 05/06/20 16:14: POC Glucose 188 H Current Medications Acetaminophen (Acetaminophen 325 Mg Tablet) 650 mg PO Q6H PRN PRN PRN Reason: Pain Score 1-10/Temp > 100.7 F Albuterol Sulfate (Albuterol 2.5 Mg/3 Ml Vial.Neb.) 2.5 mg INHALATION Q2H PRN PRN PRN Reason: SOB/Wheezing Atorvastatin Calcium (Atorvastatin Calcium 10 Mg Tablet) 10 mg PO QHS [facility] Last Admin: 05/05/20 22:12 Dose: 10 mg Documented by: Cholecalciferol (Cholecalciferol (Vit D3) 1,000 Unit (25mcg)) 1,000 unit PO DAILY [facility] Last Admin: 05/06/20 09:22 Dose: 1,000 unit Documented by: Dextrose (Dextrose 50%-Water 25 Gm/50 Ml Disp.Syrin) 0 gm IV X1 PRN; Protocol PRN Reason: Hypoglycemia Glucagon (Glucagon 1 Mg/Ml Syringe) 1 mg IM .X1 PRN PRN Reason: Hypoglycemia Heparin Sodium (Porcine) (Heparin Injection (Vial) 5,000 Unit/Ml Vial) 5,000 unit SC Q12 [facility] Last Admin: 05/06/20 07:11 Dose: Not Given Documented by: Hydralazine HCl (Hydralazine 20 Mg/Ml Vial) 10 mg IV Q4H PRN PRN PRN Reason: SBP more than 180 mmHg Hydralazine HCl (Hydralazine 50 Mg Tablet) 50 mg PO BID [facility] Last Admin: 05/06/20 09:22 Dose: 50 mg Documented by: Ceftriaxone Sodium (Rocephin) 1 gm in 50 mls @ 100 mls/hr IV Q24H [facility] Last Infusion: 05/05/20 22:42 Dose: Infused Documented by: Sodium Chloride () 250 mls @ 15 mls/hr IV .[id number] PRN PRN Reason: Saline Flush Insulin Human Lispro (Insulin Lispro 100 Unit/Ml Insuln.Pen) 0 unit SC [facility]; Protocol Last Admin: 05/06/20 16:16 Dose: 2 units Documented by: Loperamide HCl (Loperamide 2 Mg Capsule) 2 mg PO BID [facility] Last Admin: 05/06/20 09:21 Dose: Not Given Documented by: Morphine Sulfate (Morphine 2 Mg/Ml Syringe) 2 mg IV Q3H PRN PRN PRN Reason: Pain Score 6-10 Nitroglycerin (Nitroglycerin (Inpatient Use) 0.4 Mg Tab.Subl) 0.4 mg SL Q5M PRN PRN Reason: CARDIAC/CHEST PAIN Nutritional Formula (Lactose Free) (Glucerna Shake 120 Ml Liquid) 120 ml PO TIDCM [facility] Last Admin: 05/06/20 16:16 Dose: 120 ml Documented by: Oxycodone HCl (Oxycodone 5 Mg Tablet) 5 mg PO Q4H PRN PRN PRN Reason: Pain Score 4-5 Prochlorperazine Edisylate (Prochlorperazine 10 Mg/2 Ml Vial) 5 mg IV Q4H PRN PRN PRN Reason: Breakthrough Nausea/Vomiting Senna/Docusate Sodium (Senna/Docusate Sodium 1 Tablet) 2 tablet PO BID PRN PRN PRN Reason: Constipation Sodium Chloride (0.9% Saline Lock 10 Ml Syringe) 10 - 40 ml IV UD PRN PRN Reason: SALINE FLUSH Last Admin: 05/05/20 22:17 Dose: 10 ml Documented by: STROKE Vital Signs/Narrative: Vital Signs Temp Pulse Resp BP Pulse Ox 05/06/20 15:15 97.7 F L 119 H 18 121/56 H 99 05/06/20 14:41 117 H Medical Necessity - Tobacco Use Smoking Status: Former smoker Assessment/Plan All Active Problems Acute kidney injury superimposed on chronic kidney disease (Acute) Hydronephrosis (Acute) 1. DEISI secondary to obstructive uropathy/UTI secondary to Klebsiella pneumonia -Continue with antibiotics as he has stents placed in bilateral ureters -Continue with Judd, will need to follow-up with urology as an outpatient -Continue to monitor renal function, appreciate nephrology's assistance 2. DM 2 -Continue to hold his oral hypoglycemics -We will continue with sliding scale insulin Accu-Cheks AC at bedtime. Will make adjustments as necessary 3. HTN/HLD -Blood pressures are stable, continue to hold lisinopril secondary to his renal function -Continue with statins 4. Generalized osteoarthritis -We will continue to hold his meloxicam secondary to his renal function -His right calf is smaller than his left calf he states that is been going on for several months and he was having a bone spur that he felt would be taking care of by the foot and ankle physician, which he had an appointment for today. -We have had multiple discussions with him about it is best that he go to a [facility] nursing facility for rehab however he refuses to go and will not even consider it. Unfortunately he is competent to make the decision of not going to a [facility] for rehab. DVT: Heparin Inpatient E&M: [id number] Subs Hosp L2
[2020-05-06] MEDS: Atorvastatin Calcium 10 MG Tablet PO (21:47)
[2020-05-06] MEDS: Heparin Injection (Vial) 5,000 UNIT/ML VIAL 5000 UNIT SC (21:48)
[2020-05-06] MEDS: Ceftriaxone 1 GM/50 ML BAG IV (21:57)
[2020-05-06 22:11] LABS: Bedside Glucose 255 mg/dL (70-110)
[2020-05-07] VITALS (7 sets, daily range): BP systolic 110–135; BP diastolic 45–68; PULSE 85–121; RESP 16–18; TEMP 36.5–36.9; O2SAT 96–97
[2020-05-07 06:45] LABS: Bedside Glucose 128 mg/dL (70-110)
[2020-05-07 07:29] LABS: Anion Gap 9 (5-15); BUN 44 mg/dL (7-18); BUN/Creat Ratio 9.2 RATIO (10-20); Chloride 108 mmol/L (98-107); Creatinine, Serum 4.77 mg/dL (0.70-1.30); EST Glomerular Filtration Rate 13 mL/min (>60); Est Glom Filt Rate - Afr Amer 15 mL/min (>60); Estimated Creatinine Clearance 11.19 ml/min; Glucose 141 mg/dL (74-106); Potassium 3.4 mmol/L (3.5-5.1); Sodium Level 140 mmol/L (136-145)
--- NOTE | 2020-05-07 08:48 | VDLE_ITS ---
Reason For Study: swelling Procedure LEFT This is a venous duplex using B-mode, color GSV is normal. flow and spectral Doppler. CFV is compressible, spontaneous, phasic, Exam performed portable in patient room. competent, and demonstrates normal The exam was abbreviated due to the COVID 19 augmentation. protocol. FV is compressible, spontaneous, phasic, The exam was diagnostic. competent and demonstrates normal A preliminary report was called and/or faxed augmentation. to Antwan HERRON. POP V is compressible, spontaneous, phasic, competent and demonstrates normal augmentation. T/P Trunk is compressible. PTV is compressible. LT PerV is compressible. Interpretation Summary There is no evidence of left lower extremity deep vein thrombosis. Left great saphenous vein appears patent and compressible segmentally. COVID-19 protocol utilized Ordering Physician: Ryan Salas Performed By: Augustin Michel RVT
--- NOTE | 2020-05-07 09:29 | PN.RENAL_ITS ---
Patient Problems: Active and Suspected Problems Acute kidney injury superimposed on chronic kidney disease (Acute) Hydronephrosis (Acute) Subjective: No nausea No vomiting No SOB. No diarrhea - Physical Exam Vitals/I&O's: Vital Signs Temp Pulse Resp BP Pulse Ox 98.4 F 104 H 16 110/45 L 97 05/07/20 03:15 05/07/20 03:15 05/07/20 03:15 05/07/20 03:15 05/07/20 03:15 Oxygen Delivery Method Room Air Weight: 63 kg Body Mass Index (BMI) 23.9 Finger Stick Blood Glucose 142 Intake and Output for Last 24 Hours 05/05/20 05/06/20 05/07/20 23:59 23:59 23:59 Intake Total 350 / 350 200 / 200 Output Total 3750 / 3750 900 / 900 Balance -3400 / -3400 -700 / -700 General: Alert, Oriented x3 HEENT: Atraumatic Oral: Moist Mucosa Neck: Supple, No JVD Lungs: Clear to auscultation, Normal air movement, No rhonchi, No wheeze Cardiovascular: Regular rate, Regular Rhythm, Normal S1, Normal S2 Abdomen: Bowel Sounds Present, Soft, Non Tender, Non-Distended Extremities: No clubbing, No cyanosis, No edema Skin: No rashes Musculoskeletal: No Tenderness to Palpation of Joints or Extremities Lymphatic: No Cervical, Supraclavicular, or Inguinal Adenopathy Neurological: Cranial nerves II-XII grossly intact, Neuro grossly intact Psych/Mental Status: Appropriate Microbiology Past 72 Hours 05/03/20 00:10 Urine, Catheterized Urine Culture - Final Klebsiella pneumoniae sp pneum 05/03/20 00:50 Blood Culture (Wb) - Anticubital Left Blood Culture - Preliminary No growth in 48 hours. 05/03/20 00:43 Blood Culture (Wb) - Right Forearm Blood Culture - Preliminary No growth in 48 hours. Laboratory Results 05/06/20 11:10: POC Glucose 330 H 05/06/20 16:14: POC Glucose 188 H 05/06/20 21:53: POC Glucose 255 H 05/07/20 06:36: POC Glucose 128 H 05/07/20 06:48: Sodium 140, Potassium 3.4 L, Chloride 108 H, Carbon Dioxide 23.0, Anion Gap 9, BUN 44 H, Creatinine 4.77 H, Estim Creat Clear Calc 11.19, Est GFR (MDRD) Af Amer 15 L, Est GFR (MDRD) Non-Af 13 L, BUN/Creatinine Ratio 9.2 L, Glucose 141 H, Calcium 9.0 Current Medications Acetaminophen (Acetaminophen 325 Mg Tablet) 650 mg PO Q6H PRN PRN PRN Reason: Pain Score 1-10/Temp > 100.7 F Albuterol Sulfate (Albuterol 2.5 Mg/3 Ml Vial.Neb.) 2.5 mg INHALATION Q2H PRN PRN PRN Reason: SOB/Wheezing Atorvastatin Calcium (Atorvastatin Calcium 10 Mg Tablet) 10 mg PO QHS [facility] Last Admin: 05/06/20 21:47 Dose: 10 mg Documented by: Cholecalciferol (Cholecalciferol (Vit D3) 1,000 Unit (25mcg)) 1,000 unit PO DAILY [facility] Last Admin: 05/06/20 09:22 Dose: 1,000 unit Documented by: Dextrose (Dextrose 50%-Water 25 Gm/50 Ml Disp.Syrin) 0 gm IV X1 PRN; Protocol PRN Reason: Hypoglycemia Glucagon (Glucagon 1 Mg/Ml Syringe) 1 mg IM .X1 PRN PRN Reason: Hypoglycemia Heparin Sodium (Porcine) (Heparin Injection (Vial) 5,000 Unit/Ml Vial) 5,000 unit SC Q12 [facility] Last Admin: 05/06/20 21:48 Dose: 5,000 unit Documented by: Hydralazine HCl (Hydralazine 20 Mg/Ml Vial) 10 mg IV Q4H PRN PRN PRN Reason: SBP more than 180 mmHg Hydralazine HCl (Hydralazine 50 Mg Tablet) 50 mg PO BID [facility] Last Admin: 05/06/20 21:48 Dose: 50 mg Documented by: Ceftriaxone Sodium (Rocephin) 1 gm in 50 mls @ 100 mls/hr IV Q24H [facility] Last Infusion: 05/06/20 23:22 Dose: Infused Documented by: Sodium Chloride () 250 mls @ 15 mls/hr IV .[id number] PRN PRN Reason: Saline Flush Insulin Human Lispro (Insulin Lispro 100 Unit/Ml Insuln.Pen) 0 unit SC ACHS [facility]; Protocol Last Admin: 05/07/20 06:37 Dose: Not Given Documented by: Loperamide HCl (Loperamide 2 Mg Capsule) 2 mg PO BID [facility] Last Admin: 05/06/20 21:48 Dose: Not Given Documented by: Morphine Sulfate (Morphine 2 Mg/Ml Syringe) 2 mg IV Q3H PRN PRN PRN Reason: Pain Score 6-10 Nitroglycerin (Nitroglycerin (Inpatient Use) 0.4 Mg Tab.Subl) 0.4 mg SL Q5M PRN PRN Reason: CARDIAC/CHEST PAIN Nutritional Formula (Lactose Free) (Glucerna Shake 120 Ml Liquid) 120 ml PO TIDCM [facility] Last Admin: 05/06/20 16:16 Dose: 120 ml Documented by: Oxycodone HCl (Oxycodone 5 Mg Tablet) 5 mg PO Q4H PRN PRN PRN Reason: Pain Score 4-5 Prochlorperazine Edisylate (Prochlorperazine 10 Mg/2 Ml Vial) 5 mg IV Q4H PRN PRN PRN Reason: Breakthrough Nausea/Vomiting Senna/Docusate Sodium (Senna/Docusate Sodium 1 Tablet) 2 tablet PO BID PRN PRN PRN Reason: Constipation Sodium Chloride (0.9% Saline Lock 10 Ml Syringe) 10 - 40 ml IV UD PRN PRN Reason: SALINE FLUSH Last Admin: 05/05/20 22:17 Dose: 10 ml Documented by: Medical Necessity - Tobacco Use Smoking Status: Former smoker Assessment/Plan All Active Problems Acute kidney injury superimposed on chronic kidney disease (Acute) Hydronephrosis (Acute) DEISI on a kidney disease stage III. Baseline creatinine around 1.6 to 2.1 mg deciliter. Acute kidney injury from post renal as evident by CAT scan of abdomen and pelvis which showed bilateral hydronephrosis right more than left. s/p cystoscopy with B/L ureter stents placement on 05/05 Kidney function has been improving since stents placement Post obstruction polyuria is expected and should resolve in 24-48 hrs. UOP 2.7 L yesterday There is no need for renal replacement therapy. Please avoid NSAIDs and IV contrast. Avoid AMADA inhibitor or ARB. Recheck renal function panel in the morning Urethral stricture. Patient has been doing self cath. Now has Judd catheter. B/L hydronephrosis with pelvis mass. s/p B/L ureters stents placement Pelvis mass Bx done on 05/06 Will defer management to urology service Hypertension. Blood pressure is acceptable. Please continue holding home lisinopril. Currently on hydralazine Metabolic acidosis. resolved Likely from acute kidney injury. We will continue to follow. Please call if any question at [phone]
[2020-05-07] MEDS: Loperamide 2 MG Capsule PO (09:54)
[2020-05-07] MEDS: hydrALAZINE 50 MG Tablet PO (09:54)
[2020-05-07] MEDS: Heparin Injection (Vial) 5,000 UNIT/ML VIAL 5000 UNIT SC (09:55)
[2020-05-07] MEDS: Glucerna Shake 120 ML LIQUID PO ×2 (09:55→11:55)
[2020-05-07] MEDS: Insulin Lispro 100 UNIT/ML INSULN.PEN SC (11:56)
[2020-05-07 12:16] LABS: Bedside Glucose 362 mg/dL (70-110)
--- NOTE | 2020-05-07 13:46 | PCM.DC ---
- Discharge Diagnoses Current Active Problems: Current Active and Chronic Problems Acute kidney injury superimposed on chronic kidney disease (Acute) Cancer of colon with rectum (Chronic) Cancer of prostate (Chronic) Hydronephrosis (Acute) You will use the following diet at home:: Calorie/Carbohydrate Controlled (specify 1200, 1400, etc), Renal (restricted protein/sodium) Your food should be the consistency of: Regular Your liquids should be the consistency of: Regular/Thin Discharge Activity: Return to Normal Activity Call your doctor if you observe: Fever of 101 or Higher, Shortness of breath, Dizziness, Fainting spells, Swelling in the ankles, Chest pain, Increased palpitations (irregular heartbeat) Instructions: ED Chronic Kidney Disease (CKD), ED Renal Insufficiency Additional Instructions: Follow-up with his primary care physician in 3 to 5 days to obtain a BMP to monitor your kidney function. Allergies/Adverse Reactions: Allergies No Known Allergies Allergy (Verified 05/02/20 22:53) Medications to take at Discharge Atorvastatin Calcium [Lipitor] 10 mg PO QHS 12/08/19 Cholecalciferol (VIT D3) [Vitamin D3] 1,000 unit PO DAILY 12/08/19 Loperamide [Imodium] 2 mg PO BID 12/08/19 Potassium Chloride [Klor-Con] 20 meq PO DAILY 12/08/19 Ubidecarenone/Vit E Acet [Co Q-10 100 mg Softgel] 1 ea PO DAILY 12/08/19 Cephalexin [Keflex] 500 mg PO Q8 #21 cap 05/07/20 Glimepiride 2 mg PO DAILY #0 05/07/20 Insulin Glargine [Lantus (BKC)] 10 units SC DAILY #1 pen 05/07/20 [place], Insulin Disposable [Novofine Autocover 30G Needle] 1 ea MISCELL. UD #1 box 05/07/20 Tamsulosin HCl [Flomax] 0.4 mg PO DAILY #30 cap 05/07/20 The following prescriptions were given: Insulin Glargine [Lantus (BKC)] 10 units SC DAILY #1 pen Transmission Status: Pending to [facility] [place], Insulin Disposable [Novofine Autocover 30G Needle] 1 ea MISCELL. UD #1 box Transmission Status: Pending to [facility] Primary Care Physician: Thayer,Srinivas, MD [Primary Care Provider] - Please follow up with your Primary Care Physician in: 3-5 days Test Results: Test results from this visit will be discussed in further detail at your follow-up appointment, if applicable. Please Follow Up With: Humza Gómez MD When: 2 weeks Please Follow Up With: Tal Hill MD When: 2 weeks
--- NOTE | 2020-05-07 14:08 | CASEMGMT ---
Addendum entered by Araceli Cuellar 05/07/20 15:11: This GOAPL ANDERSON back to room and pt/ state they would like [facility] and call to Neha at [facility] with referral for SN, PT/OT. Neha then calls this GOPAL ANDERSON back and states they can accept pt at this time. Neha updated on pt new use of insulin and pt going home with a akers, voices understanding. Pt/ updated, voice understanding. Pt/ voice no further questions/concerns/needs. Gilson HERRON CM Original Note: Pt states has a glucometer at home and pt/ are interested in C SN, PT/OT at discharge. Pt would like to go home at discharge and will be placed on insulin at discharge per Dr. Salas. Per pt/, pt has only been on po meds for DM and Antwan HERRON updated so that he can instruct pt/. Pt/ provided with a list of [facility] providers including quality and resource use data and consistent with the pt's preferred geographic region, medical needs, and insurance network. CM to follow. Gilson HERRON CM
--- NOTE | 2020-05-07 14:08 | PCM.DC.SUM ---
Discharge Date and Diagnosis - Problem List Patient Problems: Active and Suspected Problems Acute kidney injury superimposed on chronic kidney disease (Acute) Hydronephrosis (Acute) Date of Admission: 05/03/20 Date of Discharge: 05/07/20 - Primary Discharge Diagnosis Acute Problems: Active Problems Acute kidney injury superimposed on chronic kidney disease (Acute) Hydronephrosis (Acute) - Secondary Discharge Diagnosis Chronic Problems: Chronic Problems Cancer of colon with rectum (Chronic) Cancer of prostate (Chronic) Hospital Course and Treatment Imaging Results: Clinical Impression(s) from Imaging Studies Brain CT 05/02/20 23:07 IMPRESSION: Chronic involutional changes of the brain. There is no acute intracranial pathology. Right parietal meningioma suspected. Mild chronic sinus disease. Electronically Signed: Lay Kunz MD at 23:57 EST , Service support , Chest X-Ray 05/02/20 23:07 IMPRESSION: Hyperinflation, component of COPD possible. No pulmonary edema, congestive heart failure or confluent pneumonia. Electronically Signed: Lay Kunz MD at 23:46 EST , Service support , Renal Ultrasound 05/03/20 11:23 IMPRESSION: Suspect 4.8 cm mass in the base of the bladder with severe right hydronephrosis and moderate left hydronephrosis possibly from bladder outlet obstruction or ureteral vesicle junction of the stenosis. Correlation with cystoscopy would be useful. Electronically Signed: Mark Milan MD at 12:59 EST Tel , Service support , Abdomen/Pelvis CT 05/04/20 13:37 IMPRESSION: 1. Bilateral hydronephrosis and hydroureter (right more than left). 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 2. Sclerosis of L4, L5 and S1 vertebral bodies. 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 No comparison studies not available, but would be useful for further workup recommendations. Absent comparison studies, MRI may provide additional information. Electronically Signed: Carlos Goddard MD ([place]) at 15:36 EST , Service support , Pelvis CT 05/06/20 08:00 IMPRESSION: Diffusely thickened irregular appearance of the bladder. Diffuse circumferential thickening of the distal portion of the right ureter at the level of the ureterovesical junction. Electronically Signed: Michael Cormier MD at 9:20 EDT , Service support , Venous Doppler: Interpretation Summary There is no evidence of left lower extremity deep vein thrombosis. Left great saphenous vein appears patent and compressible segmentally. COVID-19 protocol utilized Report of Operation Date of Procedure: 05/05/20 Pre-Operative Diagnosis: Bilateral hydronephrosis possible bladder mass Post-Operative Diagnosis: Same Surgery/Procedure Performed:: Cystoscopy bilateral retrograde pyelograms bilateral stent placement Consults: Nephrology Urology Operations: None Procedures: None Summary of Care Provided: Per HPI: The patient is a 79 year old M with history of colorectal cancer status post resection and anastomosis and cancer prostate status post radiation in remission last 8 years was sent to ER from PCP for abnormal labs, kidney failure. As per the , he has been feeling weak, not good appetite after for short of Covid. He had second short of Covid a day before admission. Patient is hard of hearing. He has history of bulbar urethral stricture status post cystoscopy and internal urethrotomy in January [address] Hill. [] His baseline creatinine has been 1.5-2 since 2016 but today it was 5.75. Patient uses self-catheterization after stricture and did not notice any difference in the amount. He has decreased sensation of bladder filling. Denies any history of UTI in the past. In ED, his blood pressure was high 188/96, heart rate 188 but afebrile. No tachypnea or hypoxia. Hospital Course: 1. DEISI secondary to obstructive uropathy with known urethral stricture/UTI secondary to Klebsiella [id number] male with a history of colorectal cancer status post resection and prostate cancer status post radiation presented to the ER from his PCP for abnormal labs. He was found to be in renal failure, on admission his creatinine was 5.85 which peaked to 6.33. He is down to 4.77 today on discharge. He had a renal ultrasound demonstrating hydronephrosis and he had bilateral ureteral stents placed as well as a Judd. His kidney function improved with the placement of the stents and Judd and he has been doing well since then. He has been continued on Rocephin for his UTI and will be discharged on Keflex for another 7 days. We will also add Flomax on discharge. We did have multiple discussions with him about the need for further therapy however he refuses to go to SNF and demands to go home. I discussed with him the plan for discharge today and he expressed understanding of the risk and benefits of going home and wants to go home today. 2. HTN/HLD-systolic blood pressures are below 150 during his hospitalization. However because of his renal function and inability to continue Cipro he was transitioned to hydralazine 50 mg p.o. twice daily which she has been tolerating fairly well. May need to have his hydralazine increased to 3 times daily dosing potentially or may need to add a different agent in the outpatient setting. 3. DM 2-he is supposed to be on metformin and glimepiride as an outpatient however given the fact that his GFR is acutely below 20 his metformin has been discontinued and I decreased his glimepiride to 2 mg p.o. daily. I did decide to place him on Lantus 10units daily and to follow-up with his PCP for monitoring and adjustment. He does have a glucometer at home to be able to test his blood sugars. Hopefully as his renal function returns back to baseline he will be able to restart his glimepiride and metformin which seems to kept him stable 4. 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 He states that he sometimes gets numbness and tingling in his right lower extremity and says it is due to a bone spur. Given the size discrepancy it may also be beneficial to perform an EMG as an outpatient to determine whether or not there is a neuromuscular cause for this. He tried to describe what happened in January that caused his right leg to be smaller. 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 I discussed the patient's course with his primary care physician directly to assist with outpatient follow-up and management. Patient Problems: Active and Suspected Problems Acute kidney injury superimposed on chronic kidney disease (Acute) Hydronephrosis (Acute) - Physical Exam Vitals/I&O's: Vital Signs Temp Pulse Resp BP Pulse Ox 97.7 F L 121 H 18 135/68 H 96 05/07/20 09:15 05/07/20 11:05 05/07/20 09:15 05/07/20 09:15 05/07/20 09:15 Oxygen Delivery Method Room Air Weight: 138 lb 14.259 oz Body Mass Index (BMI) 23.9 Finger Stick Blood Glucose 142 Intake and Output for Last 24 Hours 05/05/20 05/06/20 05/07/20 23:59 23:59 23:59 Intake Total 350 / 350 200 / 200 Output Total 3750 / 3750 900 / 900 Balance -3400 / -3400 -700 / -700 General: Alert, Oriented x3, Cooperative, No apparent distress HEENT: Atraumatic, PERRLA, EOMI, Normocephalic Oral: Moist Mucosa Neck: Supple, No JVD Lungs: Clear to auscultation, Normal air movement, No rhonchi, No wheeze, No rales Cardiovascular: Regular rate, Regular Rhythm, Normal S1, Normal S2, No murmurs Abdomen: Soft, Non Tender, Non-Distended, No Hepato-splenomegaly Extremities: No edema, Capillary Refill Less than 3 Seconds Musculoskeletal: - - Right calf is smaller than left calf this been going on for several months he says he has difficulty walking with his on his right leg Neurological: Neuro grossly intact, Sensory exam intact to light touch and pain Psych/Mental Status: Normal Affect, Appropriate Microbiology Past 72 Hours 05/03/20 00:10 Urine, Catheterized Urine Culture - Final Klebsiella pneumoniae sp pneum 05/03/20 00:50 Blood Culture (Wb) - Anticubital Left Blood Culture - Preliminary No growth in 48 hours. 05/03/20 00:43 Blood Culture (Wb) - Right Forearm Blood Culture - Preliminary No growth in 48 hours. Laboratory Results 05/06/20 16:14: POC Glucose 188 H 05/06/20 21:53: POC Glucose 255 H 05/07/20 06:36: POC Glucose 128 H 05/07/20 06:48: Sodium 140, Potassium 3.4 L, Chloride 108 H, Carbon Dioxide 23.0, Anion Gap 9, BUN 44 H, Creatinine 4.77 H, Estim Creat Clear Calc 11.19, Est GFR (MDRD) Af Amer 15 L, Est GFR (MDRD) Non-Af 13 L, BUN/Creatinine Ratio 9.2 L, Glucose 141 H, Calcium 9.0 05/07/20 11:51: POC Glucose 362 H Current Medications Acetaminophen (Acetaminophen 325 Mg Tablet) 650 mg PO Q6H PRN PRN PRN Reason: Pain Score 1-10/Temp > 100.7 F Albuterol Sulfate (Albuterol 2.5 Mg/3 Ml Vial.Neb.) 2.5 mg INHALATION Q2H PRN PRN PRN Reason: SOB/Wheezing Atorvastatin Calcium (Atorvastatin Calcium 10 Mg Tablet) 10 mg PO QHS [facility] Last Admin: 05/06/20 21:47 Dose: 10 mg Documented by: Cholecalciferol (Cholecalciferol (Vit D3) 1,000 Unit (25mcg)) 1,000 unit PO DAILY [facility] Last Admin: 05/07/20 09:54 Dose: 1,000 unit Documented by: Dextrose (Dextrose 50%-Water 25 Gm/50 Ml Disp.Syrin) 0 gm IV X1 PRN; Protocol PRN Reason: Hypoglycemia Glucagon (Glucagon 1 Mg/Ml Syringe) 1 mg IM .X1 PRN PRN Reason: Hypoglycemia Heparin Sodium (Porcine) (Heparin Injection (Vial) 5,000 Unit/Ml Vial) 5,000 unit SC Q12 [facility] Last Admin: 05/07/20 09:55 Dose: 5,000 unit Documented by: Hydralazine HCl (Hydralazine 20 Mg/Ml Vial) 10 mg IV Q4H PRN PRN PRN Reason: SBP more than 180 mmHg Hydralazine HCl (Hydralazine 50 Mg Tablet) 50 mg PO BID [facility] Last Admin: 05/07/20 09:54 Dose: 50 mg Documented by: Ceftriaxone Sodium (Rocephin) 1 gm in 50 mls @ 100 mls/hr IV Q24H [facility] Last Infusion: 05/06/20 23:22 Dose: Infused Documented by: Sodium Chloride () 250 mls @ 15 mls/hr IV .[id number] PRN PRN Reason: Saline Flush Insulin Human Lispro (Insulin Lispro 100 Unit/Ml Insuln.Pen) 0 unit SC [facility]; Protocol Last Admin: 05/07/20 11:56 Dose: 8 units Documented by: Loperamide HCl (Loperamide 2 Mg Capsule) 2 mg PO BID [facility] Last Admin: 05/07/20 09:54 Dose: 2 mg Documented by: Morphine Sulfate (Morphine 2 Mg/Ml Syringe) 2 mg IV Q3H PRN PRN PRN Reason: Pain Score 6-10 Nitroglycerin (Nitroglycerin (Inpatient Use) 0.4 Mg Tab.Subl) 0.4 mg SL Q5M PRN PRN Reason: CARDIAC/CHEST PAIN Nutritional Formula (Lactose Free) (Glucerna Shake 120 Ml Liquid) 120 ml PO TIDCM [facility] Last Admin: 05/07/20 11:55 Dose: 120 ml Documented by: Oxycodone HCl (Oxycodone 5 Mg Tablet) 5 mg PO Q4H PRN PRN PRN Reason: Pain Score 4-5 Prochlorperazine Edisylate (Prochlorperazine 10 Mg/2 Ml Vial) 5 mg IV Q4H PRN PRN PRN Reason: Breakthrough Nausea/Vomiting Senna/Docusate Sodium (Senna/Docusate Sodium 1 Tablet) 2 tablet PO BID PRN PRN PRN Reason: Constipation Sodium Chloride (0.9% Saline Lock 10 Ml Syringe) 10 - 40 ml IV UD PRN PRN Reason: SALINE FLUSH Last Admin: 05/05/20 22:17 Dose: 10 ml Documented by: Discharge Activity: Return to Normal Activity Call your doctor if you observe: Fever of 101 or Higher, Shortness of breath, Dizziness, Fainting spells, Swelling in the ankles, Chest pain, Increased palpitations (irregular heartbeat) Home Medications: Medications to take at Discharge Atorvastatin Calcium [Lipitor] 10 mg PO QHS 12/08/19 Cholecalciferol (VIT D3) [Vitamin D3] 1,000 unit PO DAILY 12/08/19 Loperamide [Imodium] 2 mg PO BID 12/08/19 Potassium Chloride [Klor-Con] 20 meq PO DAILY 12/08/19 Ubidecarenone/Vit E Acet [Co Q-10 100 mg Softgel] 1 ea PO DAILY 12/08/19 Cephalexin [Keflex] 500 mg PO Q8 #21 cap 05/07/20 Glimepiride 2 mg PO DAILY #0 05/07/20 Insulin Glargine [Lantus (BKC)] 10 units SC DAILY #1 pen 05/07/20 [place], Insulin Disposable [Novofine Autocover 30G Needle] 1 ea MISCELL. UD #1 box 05/07/20 Tamsulosin HCl [Flomax] 0.4 mg PO DAILY #30 cap 05/07/20 hydrALAZINE [Apresoline] 50 mg PO BID #60 tablet 05/07/20 Following Prescriptions Were Given to Patient: Tamsulosin HCl [Flomax] 0.4 mg PO DAILY #30 cap Transmission Status: Sent to [facility] Cephalexin [Keflex] 500 mg PO Q8 #21 cap Transmission Status: Sent to [facility] Insulin Glargine [Lantus (BKC)] 10 units SC DAILY #1 pen Transmission Status: Received by [facility] [place], Insulin Disposable [Novofine Autocover 30G Needle] 1 ea MISCELL. UD #1 box Transmission Status: Received by [facility] Primary Care Physician: Srinivas Thayer MD [Primary Care Provider] - Please follow up with your Primary Care Physician in: 3-5 days Please Follow Up With: Humza Gómez MD When: 2 weeks Please Follow Up With: Tal Hill MD When: 2 weeks Patient Instructions: ED Chronic Kidney Disease (CKD), ED Renal Insufficiency Disposition: Home with Home Health Minutes spent on discharge:: 35 Patient Condition:: Stable Medical Necessity - Tobacco Use Smoking Status: Former smoker Meaningful Use Info Meaningful Use Diagnoses (Choose all that apply): None applicable Inpatient E&M: [id number] [facility]
--- NOTE | 2020-05-07 15:55 | CON.PCM_ITS ---
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 Srinivas Thayer MD - History of Present Illness The patient is a 79 year old M with PMH as below, presented to the ED 05/02/2020 after labs drawn at PCP office and revealed acute renal failure. He went to primary care due to inability to urinate, as well as new onset low back pain. Patient has a history of colorectal cancer s/p radiation, has been in remission for the last 8 years, also recent cystoscopy and internal urethrotomy January [address] Hill for a bulbar urethral stricture. Stricture was severe, had been self catheterizing at home. Baseline creatinine 1.5-2 since 2016, however had DEISI secondary to obstructive uropathy and known urethral stricture, also has UTI with Klebsiella pneumoniae. Creatinine on admission was 5.85, day of discharge 4.77. Judd catheter was inserted with improvement in his overall renal function. Nephrology consulted. Patient has been having some right leg pain, however in his left leg that is swollen. He does have some chronic numbness and tingling to the right leg, mainly the lower leg and foot. He was to see milk drying machine operator yesterday, however this was canceled since he was hospitalized. reports she is going to call and reschedule so he can be evaluated for a bone spur. Previously participated in therapy for about 4 weeks for his right ankle pain, with no improvement. Doppler was performed this admission and was negative for DVT. Renal ultrasound showed hydronephrosis and his bilateral ureteral stents, as well as indwelling Judd. Is discharged on Keflex and Flomax. It was recommended he go to a fdc facility for ongoing therapy, however he declined. Antihypertensives were adjusted during hospitalization, he is now on hydralazine 50 mg twice daily. Blood pressure is still somewhat elevated but has improved overall. Metformin was discontinued secondary to renal function, glimepiride reduced from 4 mg to 2 mg. He was also placed on Lantus 10 units, which is new to patient. He does not monitor his blood sugars at home. 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 He also had sclerosis of L4, L5, and S1 vertebral bodies. 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 Further work-up was recommended. An additional pelvic CT was performed 05/06 that showed diffusely thickened irregular appearance of the bladder and diffuse circumferential thickening of the distal portion of the right ureter at the level of the ureterovesical junction. Patient lives at home with his in a two-story home, his bed and bath are on the first floor. Stated to social work that he is independent with all ADLs and has no concerns and he still drives. DME at home includes cane, walker, and transport chair. However, upon interviewing and patient, he states he has been significantly weaker lately and is using his walker for any ambulation whatsoever. He has not had any falls. Appetite is improving but still not at baseline. [] Patient Problems: Chronic Problems Cancer of colon with rectum (Chronic) Cancer of prostate (Chronic) Surgical History: TURP, - - Cystoscopy Psychiatric History: No pertinent psych hx Home Medications: Ambulatory Orders Medication Instructions Recorded Atorvastatin Calcium [Lipitor] 10 mg PO QHS 12/08/19 Cholecalciferol (VIT D3) [Vitamin 1,000 unit PO DAILY 12/08/19 D3] Loperamide [Imodium] 2 mg PO BID 12/08/19 Potassium Chloride [Klor-Con] 20 meq PO DAILY 12/08/19 Ubidecarenone/Vit E Acet [Co Q-10 1 ea PO DAILY 12/08/19 100 mg Softgel] Cephalexin [Keflex] 500 mg PO Q8 #21 cap 05/07/20 Glimepiride 2 mg PO DAILY #0 05/07/20 Insulin Glargine [Lantus (BKC)] 10 units SC DAILY #1 pen 05/07/20 Provencal, Insulin Disposable 1 ea MISCELL. UD #1 box 05/07/20 [Novofine Autocover 30G Needle] Tamsulosin HCl [Flomax] 0.4 mg PO DAILY #30 cap 05/07/20 hydrALAZINE [Apresoline] 50 mg PO BID #60 tablet 05/07/20 Allergies No Known Allergies Allergy (Verified 05/02/20 22:53) Paternal History Items: Heart Disease - Father - Social History Smoking Status: Former smoker Review of Systems Constitutional: Denies: Chills, Fever, Weight Change Eyes: Denies: Vision Change HEENT: Denies: Head Aches, Sinus Congestion, Sinus Drainage Cardiovascular: Denies: Chest Pain, Palpitations Respiratory: Denies: Cough, Shortness of breath at rest, Sputum production, Wheezing Gastrointestinal: Denies: Abdominal Pain, Constipation, Diarrhea, Nausea, Vomiting Genitourinary: Reports: Dysuria, Retention. Denies: Hematuria Musculoskeletal: Reports: Joint Pain, Leg Pain. Denies: Joint Tenderness Skin: Denies: Rash, Wounds Neurological: Reports: Balance problems, Numbness, Tingling. Denies: Change in Speech, Focal weakness, Tremor Psychiatric: Reports: Anxiety. Denies: Depression, Homicidal Ideations, Suicidal Ideations Hematologic/ Lymphatic: Reports: Anemia. Denies: Easy Bruising, Easy Bleeding Physical Exam Subjective: Patient sitting in recliner, not really making eye contact. at bedside and doing most of the talking. He is answering questions appropriately and is alert and oriented x3. General: Alert, Oriented x3, Cooperative HEENT: Atraumatic, PERRLA, EOMI, Normocephalic Oral: Moist Mucosa Neck: Supple, No JVD Lungs: Clear to auscultation, Normal air movement Cardiovascular: Regular Rhythm, Normal S1, Normal S2, No murmurs, Tachycardic - low 100s, no chest pain or SOB Abdomen: Bowel Sounds Present, Soft, Non Tender Extremities: No cyanosis, Capillary Refill Less than 3 Seconds, Edema - LLE, mild 1+ DIRECTOR OF LEADERSHIP DEVELOPMENT, Peripheral Pulses Normal Skin: No rashes, No breakdown Musculoskeletal: No Tenderness to Palpation of Joints or Extremities Neurological: Cranial nerves II-XII grossly intact Psych/Mental Status: Normal Affect, Appropriate Objective: Vital Signs Temp Pulse Resp BP Pulse Ox 97.7 F L 121 H 18 135/68 H 96 05/07/20 09:15 05/07/20 11:05 05/07/20 09:15 05/07/20 09:15 05/07/20 09:15 Oxygen Delivery Method Room Air Weight: 63 kg Body Mass Index (BMI) 23.9 Finger Stick Blood Glucose 142 Intake and Output for Last 24 Hours 05/05/20 05/06/20 05/07/20 23:59 23:59 23:59 Intake Total 350 / 350 200 / 200 Output Total 3750 / 3750 900 / 900 Balance -3400 / -3400 -700 / -700 Microbiology Past 72 Hours 05/03/20 00:10 Urine Culture - Final Urine, Catheterized Klebsiella pneumoniae sp pneum 05/03/20 00:50 Blood Culture - Preliminary Blood Culture (Wb) - Anticubital Left No growth in 48 hours. 05/03/20 00:43 Blood Culture - Preliminary Blood Culture (Wb) - Right Forearm No growth in 48 hours. Laboratory Tests Past 24 Hrs 05/07/20 06:48 Sodium 140 Potassium 3.4 L Chloride 108 H Carbon Dioxide 23.0 Anion Gap 9 BUN 44 H Creatinine 4.77 H Estim Creat Clear Calc 11.19 Est GFR (MDRD) Af Amer 15 L Est GFR (MDRD) Non-Af 13 L BUN/Creatinine Ratio 9.2 L Glucose 141 H Calcium 9.0 Assessment/Plan All Active Problems Acute kidney injury superimposed on chronic kidney disease (Acute) Hydronephrosis (Acute) Weakness (Acute) Hx of transurethral resection of prostate (Acute) 79-year-old male with history of colon cancer and prostate cancer treated with radiation, known severe urethral stricture stricture, possible bladder mass with elevated creatinine and status post stent placement. Seen today for palliative consultation 1. Weakness/low back pain: It was advised to go to fdc upon discharge but declined. He is using a walker with all ambulation at home. No back pain since stents were placed. He feels he can go home safely. He is agreeable to RN visit a couple of days after discharge to follow-up and make sure things are going smoothly. PT OT ordered at discharge. He is going home today. 2. History of colon/prostate cancer, possible new bladder mass: Unclear if patient and understand new findings, he will go home with an indwelling Judd catheter and follow-up closely with Dr. Hill. No current pain issues, no hematuria. Pathology pending. 3. Type 2 diabetes mellitus: Sending home on insulin, which is new for patient. He does not check his blood sugars at home. Seems indifferent about doing so. Again, we will send out a nurse within 3 days of discharge to assist with any questions or concerns at they have, as well as check if he has been monitoring blood sugars and what the values are. Thank you for the opportunity to participate in this patient's care, please do not hesitate to contact [facility] Palliative with any further questions or concerns. Palliative direct line is [phone]. We will have follow-up approximately 3 days after discharge and will discuss palliative services further. This note was generated with [employer] dictation software. It may contain incorrect words, spelling, and punctuation that were not noted in checking the note before signing.
--- NOTE | 2020-05-08 15:24 | CASEMGMT ---
GOPAL ANDERSON Discharge F/U Phone Call LACE: 12 Strata: 3 Discharge date: 05/07/20 Call date: 05/08/20 Call time: [id number] Admission dx: DEISI on CKD stage 3, UTI Pt's answered and states pt is sleeping without distress and states pt has been doing good since discharge. states that [facility] nurse came out today and states no questions with discharge instructions/medications at this time. states HHC nurse instructed her on giving insulin as well. Pt has f/u appt with Dr. Thayer and Dr. Hill tomorrow and plans to keep. states no suggestions for [facility] at this time and states 'Everyone worked together to take care of him and they were all so friendly.' voices no further questions/concerns/needs and is aware she can call HHC or PCP with any further questions. SStaten GOPAL ANDERSON
== END 2020-05-07 17:53 | disposition home health service (06) | DRG 660 ==
LOC: ED 23:18 → PCU 05-03 01:17
PROVIDERS: Internal Medicine; Urology; Admitting Provider Internal Medicine; Emergency Provider Emergency Medicine; PCP Family Medicine; Visit Provider Family Medicine
PROC: 0T788DZ Dilation of Bilateral Ureters with Intraluminal Device, Via Natural or Artificial Opening Endoscopic (ICD-10-PCS; principal; 2020-05-05 10:00)
DX: N35.912 Unspecified bulbous urethral stricture, male (principal); N17.9 Acute kidney failure, unspecified; E44.0 Moderate protein-calorie malnutrition; E87.2 Acidosis; N13.6 Pyonephrosis; N18.32 Chronic kidney disease, stage 3b; E11.22 Type 2 diabetes mellitus with diabetic chronic kidney disease; I12.9 Hypertensive chronic kidney disease with stage 1 through stage 4 chronic kidney disease, or unspecified chronic kidney disease; N32.89 Other specified disorders of bladder; N35.919 Unspecified urethral stricture, male, unspecified site; B96.1 Klebsiella pneumoniae [K. pneumoniae] as the cause of diseases classified elsewhere; M77.9 Enthesopathy, unspecified; R19.00 Intra-abdominal and pelvic swelling, mass and lump, unspecified site; M15.9 Polyosteoarthritis, unspecified; E78.5 Hyperlipidemia, unspecified; Z85.048 Personal history of other malignant neoplasm of rectum, rectosigmoid junction, and anus; Z85.46 Personal history of malignant neoplasm of prostate; Z79.899 Other long term (current) drug therapy; Z79.84 Long term (current) use of oral hypoglycemic drugs; Z68.21 Body mass index [BMI] 21.0-21.9, adult; Z87.891 Personal history of nicotine dependence; Z92.3 Personal history of irradiation
CPT/HCPCS: 36415; 70450; 71045; 72192; 74176; 76000; 76770; 80048; 80053; 81001; 82962; 83036; 83605; 83735; 84100; 84484; 85025; 85027; 85610; 85730; 87040; 87077; 87086; 87088; 87186; 87426; 93005; 93971; 97110; 97116; 97162; 97166; 97530; 97535; 97802; 97803; 99251; 99285; J7030; J7040; J7050; A4216; C1769; G0463; J2405

== ENCOUNTER → 2020-05-09 16:51 | Outpatient (CLI) | payer MEDICARE, SELFPAY ==
[2020-05-05 09:54] VITALS: BMI 23.9
[2020-05-09 17:38] LABS: Hematocrit 33.3 % (40-54); Hemoglobin 10.4 g/dL (13.0-16.5); Mean Corp Hgb Conc 31.2 g/dL (32-36); Mean Corpuscular Hgb 27.3 pg (27.0-32.0); Mean Corpuscular Volume 87.4 fL (80-94); Mean Platelet Vol. 9.6 fl (6.2-12.0); Platelet Count 383 K/mm3 (150-450); RBC Distribution Width CV 14.1 % (11.6-14.6); RBC Distribution Width SD 44.7 fl (35.1-43.9); Red Blood Count 3.81 M/mm3 (4.6-6.2); White Blood Count 10.2 K/mm3 (4.4-11.0)
[2020-05-09 18:07] LABS: Anion Gap 10 (5-15); BUN 53 mg/dL (7-18); Chloride 100 mmol/L (98-107); Creatinine, Serum 4.08 mg/dL (0.70-1.30); EST Glomerular Filtration Rate 15 mL/min (>60); Est Glom Filt Rate - Afr Amer 18 mL/min (>60); Glucose 311 mg/dL (74-106); PSA,Total- Diagnostic 1.55 ng/mL (0.0-4.0); Potassium 4.7 mmol/L (3.5-5.1); Sodium Level 133 mmol/L (136-145)
== END ==
PROVIDERS: PCP Family Medicine; Visit Provider Urology
DX: N13.39 Other hydronephrosis (principal); C61 Malignant neoplasm of prostate
CPT/HCPCS: 36415; 80048; 84153; 85027

== ENCOUNTER → 2020-05-21 12:07 | Outpatient (CLI) | payer MEDICARE, SELFPAY ==
[2020-05-05 09:54] VITALS: BMI 23.9
[2020-05-21 15:41] LABS: Anion Gap 7 (5-15); BUN 41 mg/dL (7-18); Calcium,Total 8.7 mg/dL (8.5-10.1); Chloride 99 mmol/L (98-107); Creatinine, Serum 3.42 mg/dL (0.70-1.30); EST Glomerular Filtration Rate 19 mL/min (>60); Est Glom Filt Rate - Afr Amer 22 mL/min (>60); Glucose 228 mg/dL (74-106); Sodium Level 129 mmol/L (136-145)
== END ==
PROVIDERS: PCP Family Medicine; Referring Provider Family Medicine; Visit Provider Family Medicine
DX: N18.4 Chronic kidney disease, stage 4 (severe) (principal); N39.0 Urinary tract infection, site not specified
CPT/HCPCS: 36415; 80048; 87077; 87086; 87088

== ENCOUNTER 2020-05-22 11:16 | Inpatient (IN) | payer MEDICARE, SELFPAY ==
[2020-05-05 09:54] VITALS: BMI 23.9
[2020-05-22] VITALS (14 sets, daily range): BP systolic 101–133; BP diastolic 45–95; PULSE 99–140; RESP 15–18; TEMP 36.6–38.9; O2SAT 85–99; BMI 22.8; BMI 23.2; BMI 23.1
--- NOTE | 2020-05-22 11:43 | EKG12_ITS ---
Test Reason : WEAKNESS Blood Pressure : / mmHG Vent. Rate : 121 BPM Atrial Rate : 121 BPM P-R Int : 154 ms QRS Dur : 090 ms QT Int : 310 ms P-R-T Axes : 050 -10 031 degrees QTc Int : 440 ms Sinus tachycardia Otherwise normal ECG Confirmed by TWYLA MICHELLE, SOCRATES ([id number]), editorial director TIM BOSE ([id number]) on 05/24/2020 12:42:28 PM Referred By: MASOOD Confirmed By:SOCRATES WAKEFIELD MD
--- NOTE | 2020-05-22 11:52 | ED.DCSUM_ITS ---
History of Present Illness Chief Complaint: Weakness Informant: Patient, Family Onset: Yesterday Context: Gradual Onset Timing: Continuous Narrative: Patient is a 79-year-old male with history of acute renal failure recently secondary to obstructive uropathy. Patient status post colorectal cancer status post radiation and chronic urethral stricture requiring recurrent self- catheterization. Patient was antibiotics and finished them 1 week ago for urinary tract infection. The past 2 days patient had increased weakness. Now hardly able to get around his house and is having to crawl. No report of falls. Urine has been slightly more cloudy. Patient denies any pain. He did take his morning medications. Patient denies any associated pain. He denies any other complaints besides feeling weak. He has questionably had a fever today. Past Medical History - Allergies and Home Meds Allergies/Adverse Reactions: Allergies No Known Allergies Allergy (Verified 05/22/20 11:20) Past Medical History: - - BPH, urethral strictures requiring recurrent straight cathing, hypertension, diabetes mellitus, hyperlipidemia, history of colorectal cancer, osteoarthritis Surgical History: TURP, - - Cystoscopy Lives: Spouse/ Significant Other Smoking Status: Former smoker - Family History Paternal Family History: Reports: Heart Disease - Father Maternal Family History: Reports: No pertinent history Review of Systems General: Reports: Fever, Malaise. Denies: Chills, Sweats Eyes: Denies: Visual changes - bilaterally, Diplopia ENT: Denies: Rhinorrhea, Sore throat Cardiovascular: Denies: Chest pain, Palpitations Respiratory: Denies: Dyspnea, Cough, Dyspnea on exertion Gastrointestinal: Denies: Abdominal pain, Nausea, Vomiting, Diarrhea, Melena, Hematochezia Genitourinary: Denies: Dysuria, Hematuria, Frequency Musculoskeletal: Reports: Swelling - Chronic swelling of the left lower extremity?unchanged. Denies: Back pain, Extremity Pain Skin: Denies: Rash, Wounds Neurological: Denies: Headache, Weakness, Numbness Physical Exam Vital Signs/Narrative: Vital Signs Temp Pulse Resp BP Pulse Ox 05/22/20 11:17 97.8 F 140 H 16 133/95 H 85 Inital Vital Signs reviewed: Yes General: Well nourished, Well developed, No Acute Distress Head: Normocephalic, Atraumatic Eyes: Perrl, EOMI ENT: Moist mucous membranes, No rhinorrhea Neck: Supple, Nontender, No JVD Cardiovascular: Regular rhythm, No murmurs, Tachycardia Respiratory: No distress, CTA bilaterally, Chest nontender. Negative for: Wheezing, Diminished, Decreased Air Movement Abdomen: Soft, Nontender, Nondistended, Normal bowel sounds. Negative for: Guarding, Rebound tenderness Back: Nontender, Normal Inspection. Negative for: CVA tenderness Extremities: Nontender, Edema - Asymmetric edema of the left lower extremity, chronic per patient Skin: Normal color, No rash Neurological: Alert, Oriented x3, Cranial nerves II-XII grossly intact, Normal Strength, Normal Sensation Psychological: Normal affect, Normal Mood Diagnostic/Tx/Re-eval Chest X-Ray - ED: 1 View, Read by ED Physician, Read by Radiologist, No Acute Disease Clinical Impression(s) from Imaging Studies Chest X-Ray 05/22/20 12:45 IMPRESSION: Hyperinflation. The lungs are clear. Electronically Signed: Michael Cormier MD at 13:02 EDT , Service support , Laboratory Data 05/22/20 05/22/20 05/22/20 11:54 11:54 11:54 WBC 14.8 H RBC 2.94 L Hgb 8.3 L Hct 25.4 L MCV 86.4 MCH 28.2 MCHC 32.7 RDW Std Deviation 44.7 H RDW Coeff of Darian 14.0 Plt Count 223 MPV 9.3 Immature Gran % (Auto) 1.100 H Neut % (Auto) 91.1 H Lymph % (Auto) 1.2 L Reagan % (Auto) 6.4 Eos % (Auto) 0.0 Baso % (Auto) 0.2 Absolute Neuts (auto) 13.5 H Absolute Lymphs (auto) 0.18 L Nucleated RBC % 0 Differential Comment SCANNED PT 16.7 H INR 1.4 APTT 38.5 H Sodium 128 L Potassium 5.0 Chloride 96 L Carbon Dioxide 21.0 Anion Gap 11 BUN 50 H Creatinine 3.95 H Estim Creat Clear Calc 14.59 Est GFR (MDRD) Af Amer 19 L Est GFR (MDRD) Non-Af 16 L BUN/Creatinine Ratio 12.7 Glucose 245 H Lactic Acid Calcium 8.4 L Iron TIBC Iron Saturation Ferritin Total Bilirubin 0.50 AST 23 ALT 23 Alkaline Phosphatase 166 H Total Creatine Kinase 214 Troponin I < 0.015 Total Protein 6.7 Albumin 2.3 L Globulin 4.4 H Albumin/Globulin Ratio 0.5 L Urine Color Urine Clarity Urine pH Ur Specific [place] Urine Protein Urine Glucose (UA) Urine Ketones Urine Occult Blood Urine Nitrite Urine Bilirubin Urine Urobilinogen Ur Leukocyte Esterase Urine RBC Urine WBC Ur Squamous Epith Cells Urine Bacteria Urine Mucus 05/22/20 05/22/20 05/22/20 11:54 11:54 11:55 WBC RBC Hgb Hct MCV MCH MCHC RDW Std Deviation RDW Coeff of Darian Plt Count MPV Immature Gran % (Auto) Neut % (Auto) Lymph % (Auto) Reagan % (Auto) Eos % (Auto) Baso % (Auto) Absolute Neuts (auto) Absolute Lymphs (auto) Nucleated RBC % Differential Comment PT INR APTT Sodium Potassium Chloride Carbon Dioxide Anion Gap BUN Creatinine Estim Creat Clear Calc Est GFR (MDRD) Af Amer Est GFR (MDRD) Non-Af BUN/Creatinine Ratio Glucose Lactic Acid 2.7 H* Calcium Iron 14 L TIBC 172 L Iron Saturation 8.1 L Ferritin 937 H Total Bilirubin AST ALT Alkaline Phosphatase Total Creatine Kinase Troponin I Total Protein Albumin Globulin Albumin/Globulin Ratio Urine Color Straw Urine Clarity Cloudy Urine pH 6.0 Ur Specific [place] 1.010 Urine Protein 100 H Urine Glucose (UA) Normal Urine Ketones Negative Urine Occult Blood 150 H Urine Nitrite Negative Urine Bilirubin Negative Urine Urobilinogen Normal Ur Leukocyte Esterase 500 H Urine RBC 0 SEEN Urine WBC >100 SEEN Ur Squamous Epith Cells 0 SEEN Urine Bacteria 1+ Urine Mucus 0 SEEN - Rhythm Strip Rhythm Strip: Sinus Tach Rate: 121 Ectopy: None - EKG Initial EKG Interpretation: Sinus Tachycardia, - - Sinus tachycardia at a rate of 121 Left axis deviation Normal intervals Normal ST segments - Medical Decision Making Patient is evaluated for generalized weakness and lightheadedness has been worsening since yesterday. Patient recently had a complex medical history including obstructive uropathy resulting in kidney failure and requiring bilateral stents. These were placed by Dr. Hill. Patient also had a UTI and was recent on a course of Keflex. Patient is tachycardic and feels warm. He is not febrile however of concern for sepsis. Patient is given IV fluids and Tylenol. His tachycardia does improve. He has a leukocytosis of 14.8 which is new. He does have an anemia of 8.30 which is new compared to 2 weeks ago. Patient does not have any obvious source of bleeding. His platelets are normal. Patient does have a left shift. Patient has elevated lactate of 2.7. His creatinine continues to be elevated at 3.95 however this is improved from his last hospitalization. Patient sodium was 128 which is worsened from 2 weeks ago where it was 133. This is concerning for UTI. He has 500 leukoesterase, greater than 100 white blood cells and 1+ bacteria. Patient is started on Zosyn as his most recent urine culture came back positive for Pseudomonas however susceptibility still pending. [facility] Disposition - Plan for ED Patient: Disposition: Acute Care Hospital [facility] Diagnosis: Complicated acute cystitis, Recent DEISI on CKD, Severe sepsis, Hyponatremia, Anemia
[2020-05-22] MEDS: 0.9% Normal Saline 1,000 ML 999 ML IV (12:00)
[2020-05-22 12:14] LABS: Absolute Lymphocyte Count 0.18 X10^3/uL (0.83-4.51); Absolute Neutrophil Count 13.5 X10^3/uL (2.0-7.7); Basophil# 0.03 X10^3/uL; Basophil% 0.2 % (0-1); Hematocrit 25.4 % (40-54); Hemoglobin 8.3 g/dL (13.0-16.5); Lymphocyte # 0.18 X10^3/ul (4.0); Lymphocyte % 1.2 % (19-41); Mean Corp Hgb Conc 32.7 g/dL (32-36); Mean Corpuscular Hgb 28.2 pg (27.0-32.0); Mean Corpuscular Volume 86.4 fL (80-94); Mean Platelet Vol. 9.3 fl (6.2-12.0); Monocyte# 0.95 X10^3/uL; Monocyte% 6.4 % (0-10); NRBC Flagged by Analyzer 0 % (0-5); Neutrophil # 13.49 X10^3/uL (2.7-7.7); Neutrophil % 91.1 % (47-70); POSITIVE DIFFERENTIAL YES; Platelet Count 223 K/mm3 (150-450); RBC Distribution Width SD 44.7 fl (35.1-43.9); Red Blood Count 2.94 M/mm3 (4.6-6.2); White Blood Count 14.8 K/mm3 (4.4-11.0)
[2020-05-22 12:17] LABS: Differential Indicated SCAN CRITERIA MET
[2020-05-22 12:21] LABS: International Normalized Ratio 1.4; Prothrombin Time (Protime)PT. 16.7 SECONDS (11.7-14.9)
[2020-05-22 12:22] LABS: Partial Thromboplast Time 38.5 Seconds (24.1-36.2)
[2020-05-22 12:31] LABS: ALB/GLOB Ratio 0.5 RATIO (0.9-2.4); AST(SGOT) 23 U/L (15-37); Alanine Aminotransfer ALT/SGPT 23 U/L (16-61); Albumin, Serum 2.3 g/dL (3.2-5.0); Alkaline Phosphatase 166 U/L (45-117); Anion Gap 11 (5-15); BUN 50 mg/dL (7-18); BUN/Creat Ratio 12.7 RATIO (10-20); CPK Total, Creatine Kinase 214 U/L (39-308); Calcium,Total 8.4 mg/dL (8.5-10.1); Chloride 96 mmol/L (98-107); Creatinine, Serum 3.95 mg/dL (0.70-1.30); EST Glomerular Filtration Rate 16 mL/min (>60); Est Glom Filt Rate - Afr Amer 19 mL/min (>60); Estimated Creatinine Clearance 14.59 ml/min; Globulin 4.4 g/dL (2.2-4.2); Glucose 245 mg/dL (74-106); Protein, Total 6.7 g/dL (6.4-8.2); Sodium Level 128 mmol/L (136-145)
[2020-05-22 12:37] LABS: Differential Comment SCANNED
[2020-05-22 12:45] LABS: Lactic Acid 2.7 mmol/L (0.4-1.9)
--- NOTE | 2020-05-22 12:45 | RAD_ITS ---
STUDY: X-RAY CHEST REASON FOR EXAM: Male, 79 years old. Tachycardia, weakness TECHNIQUE: Single AP portable view of the chest. COMPARISON: Comparison is made with prior study of 05/02/2020. FINDINGS: EKG electrodes are seen. There is hyperinflation of the lungs consistent with chronic obstructive lung disease (COPD). Lungs are clear. There is no demonstrated pleural abnormality. Normal size heart. Normal mediastinum and chinedu. There is prominence of the pulmonary hilar arteries without peripheral pulmonary vascular congestion, suggesting pulmonary hypertension. There is atherosclerotic tortuosity of the aortic arch and descending thoracic aorta. There are diffuse degenerative changes of the visualized thoracic spine. Normal visualized ribs, clavicles, and shoulders. There is no demonstrated abnormality of the visualized soft tissue structures of the upper abdomen. RAD/Chest 1 View (Portable) IMPRESSION: Hyperinflation. The lungs are clear. Electronically Signed: Michael Cormier MD at 13:02 EDT , Service support ,
[2020-05-22 13:07] LABS: Mucous, Urine 0 SEEN /hpf (<or=2+); Red Blood Cells-Urine 0 SEEN /hpf (0-5); Squamous Epithelial Cells - UA 0 SEEN /hpf (0-5)
[2020-05-22 13:09] LABS: Color, Urine Straw (Yellow); Glucose, Dipstick Normal (Normal); Ketone-Dipstick Negative (Negative); Leukocyte Esterase-Dipstick 500 /ul (Negative); Nitrite-Dipstick Negative (Negative); Occult Blood-Urine 150 /ul (Negative); Protein-Dipstick 100 mg/dl (Negative); Urine Bilirubin Dipstick Negative (Negative); Urine Clarity Cloudy (Clear); Urine Urobilinogen Normal (Normal)
[2020-05-22 13:14] LABS: Bacteria 1+ /hpf (None Seen); White Blood Cells >100 SEEN /hpf (0-5)
--- NOTE | 2020-05-22 13:16 | ED.RN ---
PT SEPSIS ALERT. NO FLUID RESUSCITATION REQUIRED
[2020-05-22] MEDS: Acetaminophen 325 MG Tablet 650 MG PO ×2 (13:22→21:27)
--- NOTE | 2020-05-22 13:29 | NURSING ---
DR MART FOR DR CARDOZA
--- NOTE | 2020-05-22 13:51 | HP.PCM_ITS ---
Problem List (1) Severe sepsis Status: Acute (2) Complicated acute cystitis Status: Acute (3) Recent DEISI on CKD Status: Acute (4) Type 2 diabetes mellitus Status: Chronic (5) Stage 3a chronic kidney disease Status: Chronic (6) Cancer of prostate Status: Chronic (7) Hydronephrosis Status: Chronic Qualifiers: Hydronephrosis type: other Qualified Code(s): N13.39 - Other hydronephrosis (8) Hx of transurethral resection of prostate Status: Chronic History of Present Illness Date of Admission: 05/22/20 Chief Complaint: Weakness. The patient is a 79 year old M with past medical history as mentioned above presented to the emergency room because of weakness. Symptoms started around 2 days ago with weakness, generalized, feeling tired, associated with poor appetite as well as subjective fever. Patient's mentioned that he had a fever of 99.9 Fahrenheit this morning at home. Patient was admitted to the hospital 2 weeks ago because of DEISI on CKD due to obstructive uropathy, status post bilateral stent placement. He has been using self straight cath for chronic urinary retention. He denied change in the color of the urine, denied hematuria or foul-smelling urine. He denied flank pain or abdominal pain. He denied nausea or vomiting. He has history of type 2 diabetes mellitus which has been under control with insulin and glimepiride, hemoglobin A1c was 5.5% on April,. He had a history of hypertension and his blood pressure has been under control with hydralazine. He had a history of benign prostatic hypertrophy with chronic urinary retention and he has been on Flomax and self straight cath. In the emergency department, maximum temperature was 99.6 Fahrenheit, patient was tachycardic, blood pressure stable, pulse ox was 99% on room air. Routine blood work was remarkable for leukocytosis, hemoglobin of 8.3 g/dL, sodium is 128, BUN of 50, creatinine is 3.95. Lactic acid was 2.7. EKG revealed sinus tachycardia, no acute ischemic changes. Troponin was negative. Chest x-ray showed no acute findings. Urinalysis revealed cloudy urine, negative for nitrite, positive for leukocyte esterase, there was more than 100 WBCs and +1 bacteria seen. Patient is being admitted for complicated acute cystitis and severe sepsis. Past Medical History Past Medical History (Chronic Problems): Chronic Problems Type 2 diabetes mellitus (Chronic) Stage 3a chronic kidney disease (Chronic) Cancer of colon with rectum (Chronic) Cancer of prostate (Chronic) Hydronephrosis (Chronic) Hx of transurethral resection of prostate (Chronic) Allergies No Known Allergies Allergy (Verified 05/22/20 11:20) Home Medications: Ambulatory Orders Medication Instructions Recorded Cholecalciferol (VIT D3) [Vitamin 1,000 unit PO DAILY 12/08/19 D3] Loperamide [Imodium] 2 mg PO BID 12/08/19 Ubidecarenone/Vit E Acet [Co Q-10 1 ea PO DAILY 12/08/19 100 mg Softgel] Insulin Glargine [Lantus (BKC)] 10 units SC DAILY #1 pen 05/07/20 Tamsulosin HCl [Flomax] 0.4 mg PO DAILY #30 cap 05/07/20 hydrALAZINE [Apresoline] 50 mg PO BID #60 tablet 05/07/20 Glimepiride 2 mg PO DAILY 05/22/20 Potassium Chloride [Klor-Con M20] 20 meq PO DAILY 05/22/20 Surgical History: TURP, - - Cystoscopy Psychiatric History: No pertinent psych hx Lives: Spouse/ Significant Other Smoking Status: Former smoker Alcohol: None Drugs: None - *Family History Paternal History Items: Heart Disease - Father Maternal History Items: No pertinent history Review of Systems Constitutional: Reports: Anorexia, Fever, Weakness, Fatigue. Denies: Chills Eyes: Denies: Blurred vision, Double vision, Drainage, Redness HEENT: Denies: Difficulty Hearing, Dysphasia, Ear Pain, Eye Pain, Nasal Congestion, Sore Throat Cardiovascular: Denies: Chest Pain, Chest Pressure, Edema, Heaviness, Palpitations, Syncope Respiratory: Denies: Cough, Hemoptysis, Pleuritic Pain, Shortness of Breath, Sputum production, Wheezing Gastrointestinal: Denies: Abdominal Pain, Constipation, Diarrhea, Nausea, Vom iting Genitourinary: Denies: Dysuria, Frequency, Hematuria Musculoskeletal: Denies: Arm Pain, Back Pain, Foot Pain Skin: Denies: Dryness, Rash Neurological: Denies: Balance problems, Double vision, Change in Speech, Slurred speech, Confusion, Headaches, Incoordination Psychiatric: Denies: Anxiety, Depression Endocrine: Denies: Change in Body Habitus, Polydipsia, Polyuria VTE Information - Inpt Only VTE Present on Admission: No VTE Mechan Device Prophylaxis: None VTE Pharm Prophylaxis ordered?: Yes - Physical Exam Vitals/I&O's: Vital Signs Temp Pulse Resp BP Pulse Ox 99.4 F H 102 H 18 122/63 H 97 05/22/20 13:14 05/22/20 13:14 05/22/20 13:14 05/22/20 13:14 05/22/20 13:14 Oxygen Delivery Method Room Air Weight: 150 lb Body Mass Index (BMI) 22.8 Finger Stick Blood Glucose 142 General: Alert, Oriented x3, Cooperative, No apparent distress HEENT: Atraumatic, PERRLA, EOMI, Normocephalic Oral: Moist Mucosa, No Gingival or Mucosal Lesions/ Ulcerations Neck: Supple, No JVD, Negative Carotid Bruits, Trachea Midline, Thyroid Normal Size and Texture Lungs: Clear to auscultation, No rhonchi, No wheeze, No rales, Diminished Cardiovascular: Regular rate, Regular Rhythm, Normal S1, Normal S2, PMI Normal, Tachycardic Abdomen: Bowel Sounds Present, Soft, Non Tender, Non-Distended, No Hepato- splenomegaly Extremities: No clubbing, No cyanosis, Edema Skin: No rashes, No breakdown Lymphatic: No Cervical, Supraclavicular, or Inguinal Adenopathy Neurological: Cranial nerves II-XII grossly intact, Motor Exam 5/5 strength throughout Psych/Mental Status: Normal Affect, Appropriate, Alert and oriented to time, place, person, mood and affect Laboratory Results 05/22/20 11:54: Sodium 128 L, Potassium 5.0, Chloride 96 L, Carbon Dioxide 21.0, Anion Gap 11, BUN 50 H, Creatinine 3.95 H, Estim Creat Clear Calc 14.59, Est GFR (MDRD) Af Amer 19 L, Est GFR (MDRD) Non-Af 16 L, BUN/Creatinine Ratio 12.7, Glucose 245 H, Calcium 8.4 L, Total Bilirubin 0.50, AST 23, ALT 23, Alkaline Phosphatase 166 H, Total Creatine Kinase 214, Troponin I < 0.015, Total Protein 6.7, Albumin 2.3 L, Globulin 4.4 H, Albumin/Globulin Ratio 0.5 L 05/22/20 11:54: WBC 14.8 H, RBC 2.94 L, Hgb 8.3 L, Hct 25.4 L, MCV 86.4, MCH 28.2, MCHC 32.7, RDW Std Deviation 44.7 H, RDW Coeff of Darian 14.0, Plt Count 223, MPV 9.3, Immature Gran % (Auto) 1.100 H, Neut % (Auto) 91.1 H, Lymph % (Auto) 1.2 L, [place] % (Auto) 6.4, Eos % (Auto) 0.0, Baso % (Auto) 0.2, Absolute Neuts (auto) 13.5 H, Absolute Lymphs (auto) 0.18 L, Nucleated RBC % 0, Differential Comment SCANNED 05/22/20 11:54: PT 16.7 H, INR 1.4, APTT 38.5 H 05/22/20 11:54: Lactic Acid 2.7 H* 05/22/20 11:55: Urine Color Straw, Urine Clarity Cloudy, Urine pH 6.0, Ur Specific [place] 1.010, Urine Protein 100 H, Urine Glucose (UA) Normal, Urine Ketones Negative, Urine Occult Blood 150 H, Urine Nitrite Negative, Urine Bilirubin Negative, Urine Urobilinogen Normal, Ur Leukocyte Esterase 500 H, Urine RBC 0 SEEN, Urine WBC >100 SEEN, Ur Squamous Epith Cells 0 SEEN, Urine Bacteria 1+, Urine Mucus 0 SEEN Clinical Impression(s) from Imaging Studies Chest X-Ray 05/22/20 12:45 IMPRESSION: Hyperinflation. The lungs are clear. Electronically Signed: Michael Cormier MD at 13:02 EDT , Service support , Assessment/Plan All Active Problems Severe sepsis (Acute) Complicated acute cystitis (Acute) Recent DEISI on CKD (Acute) This is a 79 years old male patient presented to the emergency room because of weakness, subjective fever and poor appetite, found to have severe sepsis secondary to complicated acute cystitis and is being admitted for treatment. #1 complicated acute cystitis/severe sepsis: Patient is tachycardic, have leukocytosis, with evidence of infection and lactic acidosis. Currently, blood pressure stable. Patient had urine culture that was done yesterday as outpa tient and revealed possible Pseudomonas, final is pending. Plan: Admit to [facility] floor, telemetry monitoring, gentle IV fluids for hydration, input output chart, start IV Zosyn, blood culture, urine culture, continue self straight catheterization, repeat CBC and BMP tomorrow morning, PT OT evaluation and treatment. #2 recent acute kidney injury on top of stage IIIa chronic kidney disease: [facility] creatinine has been around 1.4 to 1.8 mg/dL. During last admission 2 weeks ago, admission creatinine went up to 6.33 which is attributed to obstructive uropathy, status post bilateral stent placement. His serum creatinine and GFR has been improving since then, it is down to 3.42 yesterday. Today, creatinine is 3.95. Plan: Gentle IV fluids for hydration, repeat BMP tomorrow morning. #3 bilateral hydronephrosis due to obstructive uropathy: Status post bilateral stent placement. As mentioned above, kidney function has been improving compared to the last admission. Plan as above, repeat BMP tomorrow morning. #4 type 2 diabetes mellitus: ADA diet, Accu-Cheks, insulin sliding scale, continue Lantus and glimepiride. Hemoglobin A1c was 5.5% on April,. #5 hypertension: Blood pressure stable, continue hydralazine. #6 benign prostatic hypertrophy: Continue Flomax, straight cath. #7 history of prostate cancer: Status post resection, stable. #8 chronic anemia: It is likely because of anemia of chronic disease. Hemoglobin has been trending down over the last 3 to 4 weeks. Admission globin is 8.3 g/dL. Hemoglobin was around 9 to 10 g/dL earlier this month. No active bleeding. Plan: Serum iron, TIBC, ferritin, B12 and folate. #9 CODE STATUS: DNR CCA, no intubation. Discussed with the patient and his . Patient's confirmed DNR CCA, no intubation. #10 DVT prophylaxis: Subcu heparin. This note was generated with [employer] dictation software. It may contain incorrect words, spelling, and punctuation that were not noted in checking the note before signing. Inpatient E&M: 66266 Init Hosp L3
[2020-05-22] MEDS: 0.9% Normal Saline 1,000 ML 75 ML IV (15:13)
[2020-05-22 15:27] LABS: Ferritin 937 ng/mL (26-388); Iron 14 ug/dL (65-175); Iron Binding Capacity,Total 172 ug/dL (250-450); PERCENT IRON SATURATION 8.1 % (15.0-55.0)
--- NOTE | 2020-05-22 15:48 | NT.THERAPY_ITS ---
Nutrition Therapy Report - History Nutrition Services has been consulted to:: Manage nutrient details of diet order Current diet / nutrition support order:: 1800 calorie; consistent carbohydrate; cardiac; renal - Anthropometric Measurements Height:: 5 ft 8 in Weight:: 69.2 kg Body Mass Index (BMI):: 23.1 - Relevant Labs Relevant Labs:: WBC 14.8 K/mm3 (4.4-11.0) H 05/22/20 11:54 RBC 2.94 M/mm3 (4.6-6.2) L 05/22/20 11:54 Hgb 8.3 g/dL (13.0-16.5) L 05/22/20 11:54 Hct 25.4 % (40-54) L 05/22/20 11:54 RDW Std Deviation 44.7 fl (35.1-43.9) H 05/22/20 11:54 Immature Gran % (Auto) 1.100 % (0.0-0.9) H 05/22/20 11:54 Neut % (Auto) 91.1 % (47-70) H 05/22/20 11:54 Lymph % (Auto) 1.2 % (19-41) L 05/22/20 11:54 Absolute Neuts (auto) 13.5 X10^3/uL (2.0-7.7) H 05/22/20 11:54 Absolute Lymphs (auto) 0.18 X10^3/uL (0.83-4.51) L 05/22/20 11:54 PT 16.7 SECONDS (11.7-14.9) H 05/22/20 11:54 APTT 38.5 Seconds (24.1-36.2) H 05/22/20 11:54 Sodium 128 mmol/L (136-145) L 05/22/20 11:54 Chloride 96 mmol/L (98-107) L 05/22/20 11:54 BUN 50 mg/dL (7-18) H 05/22/20 11:54 Creatinine 3.95 mg/dL (0.70-1.30) H 05/22/20 11:54 Est GFR (MDRD) Af Amer 19 mL/min (>60) L 05/22/20 11:54 Est GFR (MDRD) Non-Af 16 mL/min (>60) L 05/22/20 11:54 Glucose 245 mg/dL (74-106) H 05/22/20 11:54 Lactic Acid 2.7 mmol/L (0.4-1.9) H* 05/22/20 11:54 Calcium 8.4 mg/dL (8.5-10.1) L 05/22/20 11:54 Iron 14 ug/dL (65-175) L 05/22/20 11:54 TIBC 172 ug/dL (250-450) L 05/22/20 11:54 Iron Saturation 8.1 % (15.0-55.0) L 05/22/20 11:54 Ferritin 937 ng/mL (26-388) H 05/22/20 11:54 Alkaline Phosphatase 166 U/L (45-117) H 05/22/20 11:54 Albumin 2.3 g/dL (3.2-5.0) L 05/22/20 11:54 Globulin 4.4 g/dL (2.2-4.2) H 05/22/20 11:54 Albumin/Globulin Ratio 0.5 RATIO (0.9-2.4) L 05/22/20 11:54 - Assessment Food / Nutrition-Related History:: Pt reports wt has been dropping steadily over the past 6 months given reported UBW~180 lbs; calculated~16% wt loss x 6 months is significant for severe pro/antonio malnutrition especially given ongoing reported poor appetite and inadequate intake at meals over the past 3-6 months. PO to be established at this time. HgbA1C 5.5% indicates overall good glycemic control but, renal labs are elevated and warrant sodium-restriction. Pt takes strawberr y glucerna shake at home due to ongoing poor intake--will provide 120ml strawberry glucerna shake BID w/ breakfast and dinner per pt preference. 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 Evidence of Malnutrition Exists:: Yes Severe PCM:: Chronic Illness - Nutrition Intervention Nutrition Prescription:: Estimated nutrition needs~9552-0598 kcal (25 kcal/Kg) and ~40-60 gm pro (.6-.8 gm pro/Kg) per day. Estimated fluid needs~1136-7166 ml/day (30 ml/Kg). - Food / Nutrient Delivery Interventions Summary of nutrition intervention:: Will liberalize diet to carbohydrate-controlled/sodium-restricted due to ongoing wt loss and poor appetite; will provide 120ml strawberry glucerna shake BID w/ breakfast and dinner per pt request. Nutrition education provided?: Yes - MNT Monitoring Further MNT monitoring and evaluation required?: Yes MNT Follow-up in:: 3-5 days
[2020-05-22 16:07] LABS: Reflex Lactate? Y
[2020-05-22 16:13] LABS: Vitamin B12 247 pg/mL (211-911)
[2020-05-22 17:29] LABS: Lactic Acid 0.5 mmol/L (0.4-1.9)
[2020-05-22 17:35] LABS: Bedside Glucose 41 mg/dL (70-110)
[2020-05-22 17:35] LABS: Bedside Glucose 82 mg/dL (70-110)
--- NOTE | 2020-05-22 18:01 | NURSING ---
BLOOD SUGAR WAS 41 WHEN CHECKED EARLIER, PT WAS GIVEN 4OZ OJ. REPEAT WAS 82. DELAYED D/T TAKING PT TO BATHROOM
[2020-05-22] MEDS: Heparin Injection (Vial) 5,000 UNIT/ML VIAL 5000 UNIT SC (21:28)
[2020-05-22] MEDS: Loperamide 2 MG Capsule PO (21:28)
[2020-05-22] MEDS: hydrALAZINE 50 MG Tablet PO (21:28)
[2020-05-22 22:05] LABS: Bedside Glucose 47 mg/dL (70-110)
[2020-05-22 22:05] LABS: Bedside Glucose 88 mg/dL (70-110)
[2020-05-23] VITALS (18 sets, daily range): BP systolic 90–134; BP diastolic 44–64; PULSE 82–138; RESP 16–18; TEMP 36.4–38; O2SAT 94–100
[2020-05-23] MEDS: Dextrose 50%-Water 25 GM/50 ML DISP.SYRIN IV ×3 (01:52→16:15)
[2020-05-23 02:17] LABS: Glucose 100 mg/dL (74-106)
[2020-05-23] MEDS: 0.9% Normal Saline 1,000 ML 999 ML IV (02:39)
[2020-05-23 03:31] LABS: Bedside Glucose 51 mg/dL (70-110)
[2020-05-23 03:31] LABS: Bedside Glucose 24 mg/dL (70-110)
[2020-05-23 03:31] LABS: Bedside Glucose 146 mg/dL (70-110)
[2020-05-23] MEDS: Dextrose 5%/0.9% NaCl 1,000 ML 75 ML IV (04:00)
[2020-05-23 04:37] LABS: Absolute Lymphocyte Count 0.43 X10^3/uL (0.83-4.51); Absolute Neutrophil Count 8.7 X10^3/uL (2.0-7.7); Basophil# 0.02 X10^3/uL; Basophil% 0.2 % (0-1); Eosinophil# 0.01 X10^3/uL; Eosinophils% 0.1 % (0-5); Hematocrit 21.9 % (40-54); Hemoglobin 6.9 g/dL (13.0-16.5); Lymphocyte # 0.43 X10^3/ul (4.0); Lymphocyte % 4.4 % (19-41); Mean Corp Hgb Conc 31.5 g/dL (32-36); Mean Corpuscular Hgb 27.5 pg (27.0-32.0); Mean Corpuscular Volume 87.3 fL (80-94); Mean Platelet Vol. 8.6 fl (6.2-12.0); Monocyte# 0.46 X10^3/uL; Monocyte% 4.7 % (0-10); NRBC Flagged by Analyzer 0 % (0-5); Neutrophil # 8.72 X10^3/uL (2.7-7.7); Neutrophil % 89.7 % (47-70); POSITIVE DIFFERENTIAL YES; Platelet Count 177 K/mm3 (150-450); RBC Distribution Width CV 13.9 % (11.6-14.6); RBC Distribution Width SD 44.5 fl (35.1-43.9); Red Blood Count 2.51 M/mm3 (4.6-6.2); White Blood Count 9.7 K/mm3 (4.4-11.0)
[2020-05-23 04:44] LABS: Differential Indicated SCAN CRITERIA MET
[2020-05-23 04:52] LABS: Anion Gap 9 (5-15); BUN 51 mg/dL (7-18); BUN/Creat Ratio 13.4 RATIO (10-20); Calcium,Total 7.9 mg/dL (8.5-10.1); Chloride 106 mmol/L (98-107); Creatinine, Serum 3.82 mg/dL (0.70-1.30); EST Glomerular Filtration Rate 16 mL/min (>60); Est Glom Filt Rate - Afr Amer 20 mL/min (>60); Estimated Creatinine Clearance 15.17 ml/min; Glucose 109 mg/dL (74-106); Potassium 4.2 mmol/L (3.5-5.1); Sodium Level 136 mmol/L (136-145)
[2020-05-23 04:58] LABS: Differential Comment SCANNED
[2020-05-23 05:00] LABS: Lactic Acid 0.8 mmol/L (0.4-1.9)
[2020-05-23 06:25] LABS: Bedside Glucose 56 mg/dL (70-110)
[2020-05-23 06:25] LABS: Bedside Glucose 97 mg/dL (70-110)
[2020-05-23 06:25] LABS: Bedside Glucose 116 mg/dL (70-110)
[2020-05-23] MEDS: 0.9% Saline Lock 10 ML Syringe IV ×2 (08:00→09:33)
[2020-05-23] MEDS: Heparin Injection (Vial) 5,000 UNIT/ML VIAL 5000 UNIT SC (09:45)
[2020-05-23] MEDS: Loperamide 2 MG Capsule PO ×2 (09:45→22:49)
[2020-05-23] MEDS: hydrALAZINE 50 MG Tablet PO ×2 (09:45→22:44)
[2020-05-23] MEDS: Tamsulosin HCl 0.4 MG Capsule PO (09:45)
--- NOTE | 2020-05-23 10:47 | NURSING ---
monitor alarmed hr>140. pt stated he felt it went up for a moment. currently 116. per pt and , hr has been running 100-120s for some time now.
--- NOTE | 2020-05-23 10:55 | PN_ITS ---
Patient Problems: Active and Suspected Problems Hyponatremia (Acute) Anemia (Acute) Severe sepsis (Acute) Complicated acute cystitis (Acute) Recent DEISI on CKD (Acute) Subjective: Denies any complaints at present. Vitals/I&O's: Vital Signs Temp Pulse Resp BP Pulse Ox 36.9 C 119 H 18 120/55 L 98 05/23/20 10:12 05/23/20 10:12 05/23/20 10:12 05/23/20 10:12 05/23/20 10:12 Oxygen Delivery Method Room Air Weight: 69.2 kg Body Mass Index (BMI) 23.1 Finger Stick Blood Glucose 142 Intake and Output for Last 24 Hours 05/21/20 05/22/20 05/23/20 23:59 23:59 23:59 Intake Total 1390 / 1390 2323.75 / 2323.75 Output Total 900 / 900 950 / 950 Balance 490 / 490 1373.75 / 1373.75 General: Alert, No apparent distress HEENT: Atraumatic, Normocephalic Oral: Moist Mucosa, No Gingival or Mucosal Lesions/ Ulcerations Neck: No Nodes, Thyroid Normal Size and Texture Lungs: Clear to auscultation, Normal air movement, No rhonchi, No wheeze, No rales Cardiovascular: Regular rate, Regular Rhythm, Normal S1, Normal S2, No murmurs Abdomen: Bowel Sounds Present, Soft, Non Tender, Non-Distended, - - jean urine in catheter bag. Extremities: No edema, No Calf Tenderness Psych/Mental Status: Normal Affect, Appropriate Microbiology Past 72 Hours 05/22/20 11:55 Urine, Catheterized Urine Culture - Preliminary GNR Poss Pseudomonas sp Laboratory Results 05/22/20 11:54: Sodium 128 L, Potassium 5.0, Chloride 96 L, Carbon Dioxide 21.0, Anion Gap 11, BUN 50 H, Creatinine 3.95 H, Estim Creat Clear Calc 14.59, Est GFR (MDRD) Af Amer 19 L, Est GFR (MDRD) Non-Af 16 L, BUN/Creatinine Ratio 12.7, Glucose 245 H, Calcium 8.4 L, Total Bilirubin 0.50, AST 23, ALT 23, Alkaline Phosphatase 166 H, Total Creatine Kinase 214, Troponin I < 0.015, Total Protein 6.7, Albumin 2.3 L, Globulin 4.4 H, Albumin/Globulin Ratio 0.5 L 05/22/20 11:54: WBC 14.8 H, RBC 2.94 L, Hgb 8.3 L, Hct 25.4 L, MCV 86.4, MCH 28.2, MCHC 32.7, RDW Std Deviation 44.7 H, RDW Coeff of Darian 14.0, Plt Count 223, MPV 9.3, Immature Gran % (Auto) 1.100 H, Neut % (Auto) 91.1 H, Lymph % (Auto) 1.2 L, [place] % (Auto) 6.4, Eos % (Auto) 0.0, Baso % (Auto) 0.2, Absolute Neuts (auto) 13.5 H, Absolute Lymphs (auto) 0.18 L, Nucleated RBC % 0, Differential Comment SCANNED 05/22/20 11:54: PT 16.7 H, INR 1.4, APTT 38.5 H 05/22/20 11:54: Lactic Acid 2.7 H* 05/22/20 11:54: Iron 14 L, TIBC 172 L, Iron Saturation 8.1 L, Ferritin 937 H 05/22/20 11:55: Urine Color Straw, Urine Clarity Cloudy, Urine pH 6.0, Ur Specific [place] 1.010, Urine Protein 100 H, Urine Glucose (UA) Normal, Urine Ketones Negative, Urine Occult Blood 150 H, Urine Nitrite Negative, Urine Bilirubin Negative, Urine Urobilinogen Normal, Ur Leukocyte Esterase 500 H, Urine RBC 0 SEEN, Urine WBC >100 SEEN, Ur Squamous Epith Cells 0 SEEN, Urine Bacteria 1+, Urine Mucus 0 SEEN 05/22/20 15:26: Vitamin B12 247 05/22/20 15:26: RBC Folate Hemolysate Pending, RBC Folate Pending, Hematocrit Pending 05/22/20 16:38: POC Glucose 41 L* 05/22/20 16:39: Lactic Acid 0.5 05/22/20 17:17: POC Glucose 82 05/22/20 21:19: POC Glucose 47 L 05/22/20 22:02: POC Glucose 88 05/23/20 01:46: POC Glucose 24 L* 05/23/20 01:55: Glucose 100 05/23/20 02:10: POC Glucose 146 H 05/23/20 03:28: POC Glucose 51 L 05/23/20 04:30: WBC 9.7, RBC 2.51 L, Hgb 6.9 L, Hct 21.9 L, MCV 87.3, MCH 27.5, MCHC 31.5 L, RDW Std Deviation 44.5 H, RDW Coeff of Darian 13.9, Plt Count 177, MPV 8.6, Immature Gran % (Auto) 0.900, Neut % (Auto) 89.7 H, Lymph % (Auto) 4.4 L, [place] % (Auto) 4.7, Eos % (Auto) 0.1, Baso % (Auto) 0.2, Absolute Neuts (auto) 8.7 H, Absolute Lymphs (auto) 0.43 L, Nucleated RBC % 0, Differential Comment SCANNED 05/23/20 04:30: Sodium 136, Potassium 4.2, Chloride 106, Carbon Dioxide 21.0, Anion Gap 9, BUN 51 H, Creatinine 3.82 H, Estim Creat Clear Calc 15.17, Est GFR (MDRD) Af Amer 20 L, Est GFR (MDRD) Non-Af 16 L, BUN/Creatinine Ratio 13.4, Glucose 109 H, Calcium 7.9 L 05/23/20 04:30: Lactic Acid 0.8 05/23/20 04:35: POC Glucose 97 05/23/20 05:19: POC Glucose 56 L 05/23/20 06:20: POC Glucose 116 H 05/23/20 06:40: Blood Type O POSITIVE, Antibody Screen NEGATIVE, Crossmatch See Detail Current Medications Acetaminophen (Acetaminophen 325 Mg Tablet) 650 mg PO Q6H PRN PRN PRN Reason: Pain Score 1-10/Temp > 100.7 F Last Admin: 05/22/20 21:27 Dose: 650 mg Documented by: Dextrose (Dextrose 50%-Water 25 Gm/50 Ml Disp.Syrin) 0 gm IV X1 PRN; Protocol PRN Reason: Hypoglycemia Glucagon (Glucagon 1 Mg/Ml Syringe) 1 mg IM .X1 PRN PRN Reason: Hypoglycemia Heparin Sodium (Porcine) (Heparin Injection (Vial) 5,000 Unit/Ml Vial) 5,000 unit SC Q12 [facility] Last Admin: 05/23/20 09:45 Dose: 5,000 unit Documented by: Hydralazine HCl (Hydralazine 50 Mg Tablet) 50 mg PO BID [facility] Last Admin: 05/23/20 09:45 Dose: 50 mg Documented by: Piperacillin Sod/Tazobactam (Sod 3.375 gm/ Sodium Chloride) 50 mls @ 12.5 mls/hr IV Q12 [facility] Last Admin: 05/23/20 09:32 Dose: 12.5 mls/hr Documented by: Dextrose/Sodium Chloride (Dextrose 5%/0.9% Nacl) 1,000 mls @ 125 mls/hr IV .Q8H [facility] Last Infusion: 05/23/20 09:32 Dose: 0 mls/hr Documented by: Loperamide HCl (Loperamide 2 Mg Capsule) 2 mg PO BID [facility] Last Admin: 05/23/20 09:45 Dose: 2 mg Documented by: Ondansetron HCl (Ondansetron 4 Mg/2 Ml Vial) 4 mg IV Q8H PRN PRN PRN Reason: NAUSEA/VOMITING Senna/Docusate Sodium (Senna/Docusate Sodium 1 Tablet) 2 tablet PO BID PRN PRN PRN Reason: Constipation Sodium Chloride (0.9% Saline Lock 10 Ml Syringe) 10 - 40 ml IV UD PRN PRN Reason: SALINE FLUSH Last Admin: 05/23/20 09:33 Dose: 10 ml Documented by: Tamsulosin HCl (Tamsulosin Hcl 0.4 Mg Capsule) 0.4 mg PO DAILY@0830 [facility] Last Admin: 05/23/20 09:45 Dose: 0.4 mg Documented by: Zolpidem Tartrate (Zolpidem Tartrate 5 Mg Tablet) 5 mg PO QHS PRN PRN PRN Reason: INSOMNIA STROKE Vital Signs/Narrative: Vital Signs Temp Pulse Resp BP Pulse Ox 05/23/20 10:12 36.9 C 119 H 18 120/55 L 98 05/23/20 10:00 101 H 05/23/20 09:57 37.2 C 101 H 16 126/63 H 98 05/23/20 09:45 101 H Medical Necessity - Tobacco Use Smoking Status: Former smoker Tobacco Use: Cigarettes Assessment/Plan All Active Problems Hyponatremia (Acute) Anemia (Acute) Severe sepsis (Acute) Complicated acute cystitis (Acute) Recent DEISI on CKD (Acute) 1. acute cystitis Cx growing out possible pseudomonas on pip/tazo adjust abx accordingly based on final culture results. 2. severe sepsis POA lactate initially 2.7, but trending down 2/2 cystitis 3. chronic anemia Hg down to 6.9 to receive 1 unit of PRBCs anemia of CD, iron low, but ferritin elevated 4. CKD IV post obstructive improving monitor 5. Hydronephrosis likely post obstructive straight cath at home, here with indwelling catheter follow up with as outpt. 6. severe protein calorie malnutrition carb controlled with glucerna shake 7. DM2 had hypoglycemia this AM glargine and glimepiride on hold monitor for now. 8. VTE prophylaxis: SCDs hold chemical prophylaxis given anemia. Inpatient E&M: 92645 Subs Hosp L2
[2020-05-23 12:31] LABS: Bedside Glucose 49 mg/dL (70-110)
[2020-05-23 12:45] LABS: Bedside Glucose 58 mg/dL (70-110)
[2020-05-23 13:35] LABS: Bedside Glucose 104 mg/dL (70-110)
--- NOTE | 2020-05-23 13:45 | CASEMGMT ---
RN CM readmission note: Patient was admitted on 05/03/20-05/07/20 for DEISI on CKD stage 3. Patient had bilat stents placed. Pt self caths at home. Pt also was dc'd on insulin which was new for him. Pt was dc'd with [facility] SN, PT and OT. Pt had Palliative Care screen and consult in the hospital. Pt returned on 05/22/20 for complicated acute cystitis, sepsis. GOPAL CM in to room to discuss dc planning, at bedside. Pt lying in bed currently receiving blood in no distress. States [facility] SN and PT are still active with patient. states she is independent with the insulin now. Pt reports that pt declined Palliative Care when they called at home. Pt did comply with medications and attended follow up appts as planned. Pt plan after this hospitalization is to go back home with [facility]. CM will continue to follow this patient and plan for a safe discharge. Plan: Home with HHC resumption and family support. Will follow for need of IV antibiotics.
[2020-05-23] MEDS: Acetaminophen 325 MG Tablet 650 MG PO (14:42)
[2020-05-23 14:55] LABS: Bedside Glucose 96 mg/dL (70-110)
[2020-05-23 16:56] LABS: Bedside Glucose 62 mg/dL (70-110)
[2020-05-23] MEDS: Dextrose 5%/0.9% NaCl 1,000 ML 125 ML IV (17:25)
[2020-05-23 17:45] LABS: Bedside Glucose 65 mg/dL (70-110)
[2020-05-23 17:45] LABS: Bedside Glucose 66 mg/dL (70-110)
[2020-05-23 20:26] LABS: Bedside Glucose 94 mg/dL (70-110)
[2020-05-23 22:56] LABS: Bedside Glucose 82 mg/dL (70-110)
[2020-05-24] VITALS (14 sets, daily range): BP systolic 105–131; BP diastolic 42–56; PULSE 88–119; RESP 18–20; TEMP 36.8–37.1; O2SAT 96–98
[2020-05-24 00:31] LABS: Bedside Glucose 63 mg/dL (70-110)
[2020-05-24] MEDS: Dextrose 5%/0.9% NaCl 1,000 ML 125 ML IV (01:35)
[2020-05-24 01:41] LABS: Bedside Glucose 103 mg/dL (70-110)
[2020-05-24 06:39] LABS: Absolute Lymphocyte Count 0.37 X10^3/uL (0.83-4.51); Basophil# 0.03 X10^3/uL; Basophil% 0.4 % (0-1); Differential Indicated SCAN CRITERIA MET; Eosinophil# 0.05 X10^3/uL; Eosinophils% 0.7 % (0-5); Hematocrit 25.1 % (40-54); Hemoglobin 7.8 g/dL (13.0-16.5); Lymphocyte # 0.37 X10^3/ul (4.0); Lymphocyte % 5.1 % (19-41); Mean Corp Hgb Conc 31.1 g/dL (32-36); Mean Corpuscular Hgb 27.3 pg (27.0-32.0); Mean Corpuscular Volume 87.8 fL (80-94); Mean Platelet Vol. 9.2 fl (6.2-12.0); Monocyte# 0.67 X10^3/uL; Monocyte% 9.3 % (0-10); NRBC Flagged by Analyzer 0 % (0-5); Neutrophil # 6.03 X10^3/uL (2.7-7.7); Neutrophil % 83.5 % (47-70); POSITIVE DIFFERENTIAL YES; Platelet Count 215 K/mm3 (150-450); RBC Distribution Width CV 14.1 % (11.6-14.6); RBC Distribution Width SD 45.4 fl (35.1-43.9); Red Blood Count 2.86 M/mm3 (4.6-6.2); White Blood Count 7.2 K/mm3 (4.4-11.0)
--- NOTE | 2020-05-24 06:42 | NURSING ---
Called lab backup for glucose of 40. Lab responded that they just nadia BMP for this pt so we will not have them draw another one at this time.
[2020-05-24 06:54] LABS: Differential Comment SCANNED
[2020-05-24 07:00] LABS: Bedside Glucose 40 mg/dL (70-110)
[2020-05-24 07:13] LABS: Anion Gap 8 (5-15); BUN 45 mg/dL (7-18); BUN/Creat Ratio 12.2 RATIO (10-20); Calcium,Total 7.7 mg/dL (8.5-10.1); Chloride 112 mmol/L (98-107); EST Glomerular Filtration Rate 17 mL/min (>60); Est Glom Filt Rate - Afr Amer 20 mL/min (>60); Estimated Creatinine Clearance 15.66 ml/min; Glucose 47 mg/dL (74-106); Potassium 4.3 mmol/L (3.5-5.1); Sodium Level 141 mmol/L (136-145)
[2020-05-24 07:41] LABS: Bedside Glucose 124 mg/dL (70-110)
[2020-05-24] MEDS: levoFLOXacin 500 MG Tablet PO (09:15)
[2020-05-24] MEDS: Tamsulosin HCl 0.4 MG Capsule PO (09:15)
[2020-05-24] MEDS: 0.9% Saline Lock 10 ML Syringe IV (09:16)
--- NOTE | 2020-05-24 09:55 | CASEMGMT ---
RN CM in to discuss dc plan with pt. Pt sitting up in chair, reports feeling better today. Pt states he plans to go home tomorrow. He is aware that HH will resume. TC to [facility] Intake to make aware that pt may dc over the weekend. Green sheet on chart.
[2020-05-24] MEDS: hydrALAZINE 50 MG Tablet PO ×2 (10:20→22:23)
[2020-05-24] MEDS: Loperamide 2 MG Capsule PO ×2 (10:21→22:23)
--- NOTE | 2020-05-24 10:59 | PN_ITS ---
Patient Problems: Active and Suspected Problems Hyponatremia (Acute) Anemia (Acute) Severe sepsis (Acute) Complicated acute cystitis (Acute) Recent DEISI on CKD (Acute) Subjective: Had MBS in 60s yesterday and did required frequent checks, copious amounts of milk and cookies despite eating adequately. Today eating well. Denies any c omplaints. Vitals/I&O's: Vital Signs Temp Pulse Resp BP Pulse Ox 36.9 C 96 18 128/52 H 98 05/24/20 08:03 05/24/20 10:20 05/24/20 08:03 05/24/20 08:03 05/24/20 08:32 Oxygen Delivery Method Room Air Weight: 69.2 kg Body Mass Index (BMI) 23.1 Finger Stick Blood Glucose 142 Intake and Output for Last 24 Hours 05/22/20 05/23/20 05/24/20 23:59 23:59 23:59 Intake Total 1390 / 1390 4059.17 / 4059.17 2210.42 / 2210.42 Output Total 900 / 900 2650 / 2650 2450 / 2450 Balance 490 / 490 1409.17 / 1409.17 -239.58 / -239.58 General: Alert, No apparent distress HEENT: Atraumatic, Normocephalic Oral: Moist Mucosa, No Gingival or Mucosal Lesions/ Ulcerations Neck: No Nodes, Thyroid Normal Size and Texture Lungs: Clear to auscultation, Normal air movement, No rhonchi, No wheeze, No rales Cardiovascular: Regular rate, Regular Rhythm, Normal S1, Normal S2, No murmurs Abdomen: Bowel Sounds Present, Soft, Non Tender, Non-Distended, No Hepato-splenomegaly Extremities: No edema, No Calf Tenderness Psych/Mental Status: Normal Affect, Appropriate Microbiology Past 72 Hours 05/22/20 11:55 Urine, Catheterized Urine Culture - Final Pseudomonas aeroginosa Laboratory Results 05/23/20 06:40: Crossmatch See Detail 05/23/20 12:19: POC Glucose 49 L 05/23/20 12:40: POC Glucose 58 L 05/23/20 13:28: POC Glucose 104 05/23/20 14:40: POC Glucose 96 05/23/20 16:44: POC Glucose 62 L 05/23/20 17:09: POC Glucose 65 L 05/23/20 17:41: POC Glucose 66 L 05/23/20 20:19: POC Glucose 94 05/23/20 22:40: POC Glucose 82 05/24/20 00:22: POC Glucose 63 L 05/24/20 01:31: POC Glucose 103 05/24/20 06:20: WBC 7.2, RBC 2.86 L, Hgb 7.8 L, Hct 25.1 L, MCV 87.8, MCH 27.3, MCHC 31.1 L, RDW Std Deviation 45.4 H, RDW Coeff of Darian 14.1, Plt Count 215, MPV 9.2, Immature Gran % (Auto) 1.000 H, Neut % (Auto) 83.5 H, Lymph % (Auto) 5.1 L, [place] % (Auto) 9.3, Eos % (Auto) 0.7, Baso % (Auto) 0.4, Absolute Neuts (auto) 6.0, Absolute Lymphs (auto) 0.37 L, Nucleated RBC % 0, Differential Comment SCANNED 05/24/20 06:20: Sodium 141, Potassium 4.3, Chloride 112 H, Carbon Dioxide 21.0, Anion Gap 8, BUN 45 H, Creatinine 3.70 H, Estim Creat Clear Calc 15.66, Est GFR (MDRD) Af Amer 20 L, Est GFR (MDRD) Non-Af 17 L, BUN/Creatinine Ratio 12.2, Glucose 47 L, Calcium 7.7 L 05/24/20 06:39: POC Glucose 40 L* 05/24/20 07:37: POC Glucose 124 H Current Medications Acetaminophen (Acetaminophen 325 Mg Tablet) 650 mg PO Q6H PRN PRN PRN Reason: Pain Score 1-10/Temp > 100.7 F Last Admin: 05/23/20 14:42 Dose: 650 mg Documented by: Dextrose (Dextrose 50%-Water 25 Gm/50 Ml Disp.Syrin) 0 gm IV X1 PRN; Protocol PRN Reason: Hypoglycemia Glucagon (Glucagon 1 Mg/Ml Syringe) 1 mg IM .X1 PRN PRN Reason: Hypoglycemia Hydralazine HCl (Hydralazine 50 Mg Tablet) 50 mg PO BID [facility] Last Admin: 05/24/20 10:20 Dose: 50 mg Documented by: Levofloxacin (Levofloxacin 250 Mg Tablet) 250 mg PO QODAY [facility]A Loperamide HCl (Loperamide 2 Mg Capsule) 2 mg PO BID [facility] Last Admin: 05/24/20 10:21 Dose: 2 mg Documented by: Ondansetron HCl (Ondansetron 4 Mg/2 Ml Vial) 4 mg IV Q8H PRN PRN PRN Reason: NAUSEA/VOMITING Senna/Docusate Sodium (Senna/Docusate Sodium 1 Tablet) 2 tablet PO BID PRN PRN PRN Reason: Constipation Sodium Chloride (0.9% Saline Lock 10 Ml Syringe) 10 - 40 ml IV UD PRN PRN Reason: SALINE FLUSH Last Admin: 05/24/20 09:16 Dose: 10 ml Documented by: Tamsulosin HCl (Tamsulosin Hcl 0.4 Mg Capsule) 0.4 mg PO DAILY@0830 [facility] Last Admin: 05/24/20 09:15 Dose: 0.4 mg Documented by: Zolpidem Tartrate (Zolpidem Tartrate 5 Mg Tablet) 5 mg PO QHS PRN PRN PRN Reason: INSOMNIA STROKE Vital Signs/Narrative: Vital Signs Temp Pulse Resp BP Pulse Ox 05/24/20 10:20 96 05/24/20 08:32 98 05/24/20 08:03 36.9 C 105 H 18 128/52 H 97 Medical Necessity - Tobacco Use Smoking Status: Former smoker Tobacco Use: Cigarettes Assessment/Plan All Active Problems Hyponatremia (Acute) Anemia (Acute) Severe sepsis (Acute) Complicated acute cystitis (Acute) Recent DEISI on CKD (Acute) 1. acute cystitis Cx + for haynes-sensitive pseudomonas change pip/tazo to renally dosed levofloxacin 2. severe sepsis POA and now resolved. lactate initially 2.7, but trending down 2/2 cystitis 3. chronic anemia Hg down to 6.9, now upto 7.8 to receive 1 unit of PRBCs anemia of CD, iron low, but ferritin elevated 4. CKD IV post obstructive improving monitor continue akers catheter follow up with as outpt 5. Hydronephrosis likely post obstructive straight cath at home, here with indwelling catheter follow up with as outpt. 6. severe protein calorie malnutrition carb controlled with glucerna shake 7. DM2 had hypoglycemia this AM glargine and glimepiride on hold monitor for now. DC D5NS. 8. VTE prophylaxis: SCDs hold chemical prophylaxis given anemia. 9. Disposition: monitor another night. Given the persistent hypoglycemia in a moderately frail patient, if glucose not adequately confirmed to be stable, he would be of high likelihood of readmission. If stable, DC home with [facility] on 05/25 Inpatient E&M: 11619 Subs Hosp L2
[2020-05-24 11:25] LABS: Bedside Glucose 187 mg/dL (70-110)
[2020-05-24 16:08] LABS: Folate, RBC (Hct) Test 21.3 % (37.5-51.0)
[2020-05-24 16:20] LABS: Folates, RBC Test 1000 ng/mL (>498)
[2020-05-24 16:26] LABS: Bedside Glucose 100 mg/dL (70-110)
[2020-05-24 22:30] LABS: Bedside Glucose 209 mg/dL (70-110)
[2020-05-25] VITALS (7 sets, daily range): BP systolic 111–143; BP diastolic 49–61; PULSE 90–105; RESP 16–18; TEMP 36.6–36.9; O2SAT 98–99
[2020-05-25 06:51] LABS: Bedside Glucose 141 mg/dL (70-110)
[2020-05-25 07:00] LABS: Absolute Lymphocyte Count 0.36 X10^3/uL (0.83-4.51); Absolute Neutrophil Count 4.6 X10^3/uL (2.0-7.7); Basophil# 0.02 X10^3/uL; Basophil% 0.4 % (0-1); Eosinophil# 0.03 X10^3/uL; Eosinophils% 0.5 % (0-5); Hematocrit 25.5 % (40-54); Hemoglobin 7.9 g/dL (13.0-16.5); Lymphocyte # 0.36 X10^3/ul (4.0); Lymphocyte % 6.3 % (19-41); Mean Corpuscular Hgb 27.2 pg (27.0-32.0); Mean Corpuscular Volume 87.9 fL (80-94); Monocyte# 0.62 X10^3/uL; Monocyte% 10.9 % (0-10); NRBC Flagged by Analyzer 0 % (0-5); Neutrophil # 4.59 X10^3/uL (2.7-7.7); Neutrophil % 80.3 % (47-70); POSITIVE DIFFERENTIAL YES; Platelet Count 201 K/mm3 (150-450); RBC Distribution Width CV 14.3 % (11.6-14.6); White Blood Count 5.7 K/mm3 (4.4-11.0)
[2020-05-25 07:14] LABS: Differential Indicated SCAN CRITERIA MET
[2020-05-25 07:15] LABS: Differential Comment SCANNED
[2020-05-25 07:21] LABS: Anion Gap 8 (5-15); BUN 43 mg/dL (7-18); BUN/Creat Ratio 11.4 RATIO (10-20); Calcium,Total 8.4 mg/dL (8.5-10.1); Chloride 110 mmol/L (98-107); Creatinine, Serum 3.78 mg/dL (0.70-1.30); EST Glomerular Filtration Rate 17 mL/min (>60); Est Glom Filt Rate - Afr Amer 20 mL/min (>60); Estimated Creatinine Clearance 15.33 ml/min; Glucose 144 mg/dL (74-106); Potassium 4.6 mmol/L (3.5-5.1); Sodium Level 139 mmol/L (136-145)
[2020-05-25] MEDS: Tamsulosin HCl 0.4 MG Capsule PO (09:42)
[2020-05-25] MEDS: hydrALAZINE 50 MG Tablet PO (10:05)
[2020-05-25] MEDS: Loperamide 2 MG Capsule PO (10:05)
--- NOTE | 2020-05-25 11:05 | DCINST_ITS ---
- Discharge Diagnoses Current Active Problems: Current Active and Chronic Problems Hyponatremia (Acute) Anemia (Acute) Severe sepsis (Acute) Complicated acute cystitis (Acute) Recent DEISI on CKD (Acute) Type 2 diabetes mellitus (Chronic) Stage 3a chronic kidney disease (Chronic) Cancer of prostate (Chronic) Hydronephrosis (Chronic) Hx of transurethral resection of prostate (Chronic) You will use the following diet at home:: Calorie/Carbohydrate Controlled (specify 1200, 1400, etc) - 1800 Your food should be the consistency of: Regular Call your doctor if you observe: Fever of 101 or Higher, - - low blood sugars Allergies/Adverse Reactions: Allergies No Known Allergies Allergy (Verified 05/22/20 11:20) Medications to take at Discharge Cholecalciferol (VIT D3) [Vitamin D3] 1,000 unit PO DAILY 12/08/19 Loperamide [Imodium] 2 mg PO BID 12/08/19 Tamsulosin HCl [Flomax] 0.4 mg PO DAILY #30 cap 05/07/20 hydrALAZINE [Apresoline] 50 mg PO BID #60 tablet 05/07/20 Acetaminophen [Tylenol Tablet] 650 mg PO Q6H PRN PRN tablet 05/25/20 Insulin Glargine [Lantus SoloStar Pen] 5 units SC DAILY #1 pen 05/25/20 levoFLOXacin tablet [Levaquin tablet] 250 mg PO QODAY #3 tablet 05/25/20 The following prescriptions were given: levoFLOXacin tablet [Levaquin tablet] 250 mg PO QODAY #3 tablet Transmission Status: Pending to [facility] Primary Care Physician: Srinivas Thayer MD [Primary Care Provider] - Within 2 Weeks Test Results: Test results from this visit will be discussed in further detail at your follow- up appointment, if applicable.
--- NOTE | 2020-05-25 11:07 | PCM.DC.SUM ---
Discharge Date and Diagnosis - Problem List Patient Problems: Active and Suspected Problems Hyponatremia (Acute) Anemia (Acute) Severe sepsis (Acute) Complicated acute cystitis (Acute) Recent DEISI on CKD (Acute) Date of Admission: 05/22/20 Date of Discharge: 05/25/20 - Primary Discharge Diagnosis Acute Problems: Active Problems 1. acute cystitis Cx + for haynes-sensitive pseudomonas change pip/tazo to renally dosed levofloxacin 2. severe sepsis POA and now resolved. lactate initially 2.7, but trending down 2/2 cystitis 3. chronic anemia Hg down to 6.9, now upto 7.8 to receive 1 unit of PRBCs anemia of CD, iron low, but ferritin elevated 4. CKD IV post obstructive improving monitor continue akers catheter follow up with as outpt 5. Hydronephrosis likely post obstructive straight cath at home, here with indwelling catheter follow up with as outpt. 6. severe protein calorie malnutrition carb controlled with glucerna shake 7. hypoglycemia resolved. Iatrogenic. Likely more due to glimepiride given CKD hold glimepiride resume glargine at 5 (was on 10) glargine and glimepiride on hold monitor for now. 8. Hyponatremia: resolved unclear etiology at this time. - Secondary Discharge Diagnosis Chronic Problems: Chronic Problems Type 2 diabetes mellitus (Chronic) Stage 3a chronic kidney disease (Chronic) Cancer of colon with rectum (Chronic) Cancer of prostate (Chronic) Hydronephrosis (Chronic) Hx of transurethral resection of prostate (Chronic) Hospital Course and Treatment Imaging Results: Clinical Impression(s) from Imaging Studies Chest X-Ray 05/22/20 12:45 IMPRESSION: Hyperinflation. The lungs are clear. Electronically Signed: Michael Cormier MD at 13:02 EDT , Service support , Operations: None Procedures: None Summary of Care Provided: The patient is a 79 year old M presents with weakness. Patient was found to be in severe sepsis due to UTI. Patient initially started on Pipracil/tazobactam. Overall his course improved and culture grew out pansensitive Pseudomonas. Was sensitive to levofloxacin and patient was changed over to levofloxacin on the second with renal dosing with initial dosing of 500 and then every other day dosing of 250 mg. Complicating his hospitalization was hypoglycemia. Patient did require being on D5 drip plus also receiving half amp of D50 one-point but also receiving cookies and milk. Patient blood sugar eventually did improve and it is felt that his hypoglycemia was iatrogenic due to glimepiride as well as insulin glargine. Patient's glimepiride was likely the biggest culprit given his chronic kidney disease stage IV and not adequately removing the glimepiride from the system. Glimepiride will be held moving forward and patient's insulin glargine will be changed from 10 units daily to 5. Patient did have a natremia upon admission with a sodium 128 but that subsequently resolved. Unclear etiology. No additional work-up at this time. [] Patient Problems: Active and Suspected Problems Hyponatremia (Acute) Anemia (Acute) Severe sepsis (Acute) Complicated acute cystitis (Acute) Recent DEISI on CKD (Acute) Subjective: feeling well. anxious to go home. - Physical Exam Vitals/I&O's: Vital Signs Temp Pulse Resp BP Pulse Ox 36.6 C 100 18 143/61 H 99 05/25/20 10:03 05/25/20 10:05 05/25/20 10:03 05/25/20 10:05 05/25/20 10:03 Oxygen Delivery Method Room Air Weight: 69.2 kg Body Mass Index (BMI) 23.1 Finger Stick Blood Glucose 142 Intake and Output for Last 24 Hours 05/23/20 05/24/20 05/25/20 23:59 23:59 23:59 Intake Total 4059.17 / 4059.17 2780.42 / 2780.42 800 / 800 Output Total 2650 / 2650 3200 / 3200 2350 / 2350 Balance 1409.17 / 1409.17 -419.58 / -419.58 -1550 / -1550 General: Alert, No apparent distress HEENT: Atraumatic, Normocephalic Psych/Mental Status: Normal Affect, Appropriate Microbiology Past 72 Hours 05/22/20 11:54 Blood Culture (Wb) - No Site/Description Given Blood Culture - Preliminary No growth in 48 hours. 05/22/20 12:15 Blood Culture (Wb) - Right Wrist Blood Culture - Preliminary No growth in 48 hours. 05/22/20 11:55 Urine, Catheterized Urine Culture - Final Pseudomonas aeroginosa Laboratory Results 05/22/20 15:26: RBC Folate Hemolysate 213.0, RBC Folate 1000, Hematocrit 21.3 L 05/24/20 11:20: POC Glucose 187 H 05/24/20 16:19: POC Glucose 100 05/24/20 22:22: POC Glucose 209 H 05/25/20 06:42: WBC 5.7, RBC 2.90 L, Hgb 7.9 L, Hct 25.5 L, MCV 87.9, MCH 27.2, MCHC 31.0 L, RDW Std Deviation 46.0 H, RDW Coeff of Darian 14.3, Plt Count 201, MPV 9.0, Immature Gran % (Auto) 1.600 H, Neut % (Auto) 80.3 H, Lymph % (Auto) 6.3 L, [place] % (Auto) 10.9 H, Eos % (Auto) 0.5, Baso % (Auto) 0.4, Absolute Neuts (auto) 4.6, Absolute Lymphs (auto) 0.36 L, Nucleated RBC % 0, Differential Comment SCANNED 05/25/20 06:42: Sodium 139, Potassium 4.6, Chloride 110 H, Carbon Dioxide 21.0, Anion Gap 8, BUN 43 H, Creatinine 3.78 H, Estim Creat Clear Calc 15.33, Est GFR (MDRD) Af Amer 20 L, Est GFR (MDRD) Non-Af 17 L, BUN/Creatinine Ratio 11.4, Glucose 144 H, Calcium 8.4 L 05/25/20 06:44: POC Glucose 141 H Current Medications Acetaminophen (Acetaminophen 325 Mg Tablet) 650 mg PO Q6H PRN PRN PRN Reason: Pain Score 1-10/Temp > 100.7 F Last Admin: 05/23/20 14:42 Dose: 650 mg Documented by: Dextrose (Dextrose 50%-Water 25 Gm/50 Ml Disp.Syrin) 0 gm IV X1 PRN; Protocol PRN Reason: Hypoglycemia Glucagon (Glucagon 1 Mg/Ml Syringe) 1 mg IM .X1 PRN PRN Reason: Hypoglycemia Hydralazine HCl (Hydralazine 50 Mg Tablet) 50 mg PO BID [facility] Last Admin: 04/03/21 10:05 Dose: 50 mg Documented by: Levofloxacin (Levofloxacin 250 Mg Tablet) 250 mg PO QODAY [facility] Loperamide HCl (Loperamide 2 Mg Capsule) 2 mg PO BID [facility] Last Admin: 05/25/20 10:05 Dose: 2 mg Documented by: Ondansetron HCl (Ondansetron 4 Mg/2 Ml Vial) 4 mg IV Q8H PRN PRN PRN Reason: NAUSEA/VOMITING Senna/Docusate Sodium (Senna/Docusate Sodium 1 Tablet) 2 tablet PO BID PRN PRN PRN Reason: Constipation Sodium Chloride (0.9% Saline Lock 10 Ml Syringe) 10 - 40 ml IV UD PRN PRN Reason: SALINE FLUSH Last Admin: 05/24/20 09:16 Dose: 10 ml Documented by: Tamsulosin HCl (Tamsulosin Hcl 0.4 Mg Capsule) 0.4 mg PO DAILY@0830 [facility] Last Admin: 05/25/20 09:42 Dose: 0.4 mg Documented by: Zolpidem Tartrate (Zolpidem Tartrate 5 Mg Tablet) 5 mg PO QHS PRN PRN PRN Reason: INSOMNIA Discharge Diet: 1800 Calorie Control Diet, Renal Diet Discharge Activity: Return to Normal Activity Call your doctor if you observe: Fever of 101 or Higher, - - low blood sugars Home Medications: Medications to take at Discharge Cholecalciferol (VIT D3) [Vitamin D3] 1,000 unit PO DAILY 12/08/19 Loperamide [Imodium] 2 mg PO BID 12/08/19 Tamsulosin HCl [Flomax] 0.4 mg PO DAILY #30 cap 05/07/20 hydrALAZINE [Apresoline] 50 mg PO BID #60 tablet 05/07/20 Acetaminophen [Tylenol Tablet] 650 mg PO Q6H PRN PRN tablet 05/25/20 Insulin Glargine [Lantus SoloStar Pen] 5 units SC DAILY #1 pen 05/25/20 levoFLOXacin tablet [Levaquin tablet] 250 mg PO QODAY #3 tablet 05/25/20 Following Prescriptions Were Given to Patient: levoFLOXacin tablet [Levaquin tablet] 250 mg PO QODAY #3 tablet Transmission Status: Pending to [facility] Primary Care Physician: Srinivas Thayer MD [Primary Care Provider] - Within 2 Weeks Please Follow Up With: Tal Hill MD - urology follow up When: 2-4 weeks Please Follow Up With: Brandi Vallejo MD - nephrology follow up When: 4-6 weeks Disposition: Home with Home Health Minutes spent on discharge:: 35 Patient Condition:: Fair Medical Necessity - Tobacco Use Smoking Status: Former smoker Tobacco Use: Cigarettes Meaningful Use Info Meaningful Use Diagnoses (Choose all that apply): None applicable Inpatient E&M: 92479 Disch Hosp
[2020-05-25 12:15] LABS: Bedside Glucose 343 mg/dL (70-110)
--- NOTE | 2020-05-27 15:03 | CASEMGMT ---
GOPAL ANDERSON Discharge Follow Up Phone Call: MARIANNE: 12 Strata: 3 Call Date: 05/27/20 Discharge Date: 05/25/20 Time of Call:1501 Duration: 3 min Admitting Dx: severe sepsis d/t UTI GOPAL ANDERSON completed follow up phone call after recent hospitalization. Pt reports he has obtained his script for antibiotics and denied difficulty with this. HH has been out today to see him. He has not set up his follow up appts yet. Reports his is seeing Dr. Thayer today and she will do so. Pt has no further questions or concerns at this time.
== END 2020-05-25 12:45 | disposition home health service (06) | DRG 689 ==
LOC: ED 13:35 → MS3 14:47
PROVIDERS: Hospitalist; Admitting Provider Hospitalist; Emergency Provider Emergency Medicine; PCP Family Medicine
DX: N13.6 Pyonephrosis (principal); E43 Unspecified severe protein-calorie malnutrition; E87.1 Hypo-osmolality and hyponatremia; N18.4 Chronic kidney disease, stage 4 (severe); N17.9 Acute kidney failure, unspecified; E11.22 Type 2 diabetes mellitus with diabetic chronic kidney disease; E11.649 Type 2 diabetes mellitus with hypoglycemia without coma; D63.8 Anemia in other chronic diseases classified elsewhere; N35.919 Unspecified urethral stricture, male, unspecified site; E78.5 Hyperlipidemia, unspecified; B96.5 Pseudomonas (aeruginosa) (mallei) (pseudomallei) as the cause of diseases classified elsewhere; I12.9 Hypertensive chronic kidney disease with stage 1 through stage 4 chronic kidney disease, or unspecified chronic kidney disease; N40.1 Benign prostatic hyperplasia with lower urinary tract symptoms; R33.8 Other retention of urine; M19.90 Unspecified osteoarthritis, unspecified site; Z68.22 Body mass index [BMI] 22.0-22.9, adult; Z85.048 Personal history of other malignant neoplasm of rectum, rectosigmoid junction, and anus; Z92.3 Personal history of irradiation; Z87.891 Personal history of nicotine dependence; Z85.46 Personal history of malignant neoplasm of prostate; Z79.899 Other long term (current) drug therapy; Z79.4 Long term (current) use of insulin; Z66 Do not resuscitate
CPT/HCPCS: 36415; 71045; 80048; 80053; 81001; 82550; 82607; 82728; 82747; 82947; 82962; 83540; 83550; 83605; 84484; 85014; 85025; 85610; 85730; 86850; 86900; 86901; 86920; 86922; 87040; 87077; 87086; 87088; 87184; 87186; 93005; 97110; 97161; 97166; 97530; 97802; 99251; 99285; J7030; J7040; P9016; A4216; G0463

== ENCOUNTER → 2020-06-05 11:35 | Outpatient (CLI) | payer MEDICARE, SELFPAY ==
[2020-05-22 15:50] VITALS: BMI 23.1
[2020-06-05 15:32] LABS: Anion Gap 6 (5-15); BUN 41 mg/dL (7-18); BUN/Creat Ratio 13.7 RATIO (10-20); Calcium,Total 8.9 mg/dL (8.5-10.1); Chloride 100 mmol/L (98-107); EST Glomerular Filtration Rate 22 mL/min (>60); Est Glom Filt Rate - Afr Amer 26 mL/min (>60); Glucose 340 mg/dL (74-106); Potassium 4.4 mmol/L (3.5-5.1); Sodium Level 134 mmol/L (136-145)
== END ==
PROVIDERS: PCP Family Medicine; Referring Provider Internal Medicine; Visit Provider Internal Medicine
DX: N17.9 Acute kidney failure, unspecified (principal)
CPT/HCPCS: 36415; 80048

== ENCOUNTER → 2020-06-13 15:11 | Outpatient (CLI) | payer MEDICARE, SELFPAY ==
[2020-05-22 15:50] VITALS: BMI 23.1
[2020-06-13 16:14] LABS: PSA,Total- Diagnostic 0.23 ng/mL (0.0-4.0)
== END ==
PROVIDERS: PCP Family Medicine; Referring Provider Urology; Visit Provider Urology
DX: C61 Malignant neoplasm of prostate (principal)
CPT/HCPCS: 36415; 84153

== ENCOUNTER 2020-07-03 00:28 | Emergency (ER) | payer MEDICARE, SELFPAY ==
[2020-05-22 15:50] VITALS: BMI 23.1
[2020-07-03 00:30] VITALS: BP 134/63; PULSE 119; RESP 20; TEMP 37.4; O2SAT 96; BMI 25.3
[2020-07-03 00:32] VITALS: BP 134/63; PULSE 117; RESP 20; TEMP 37.4; O2SAT 97
[2020-07-03 00:56] LABS: Absolute Lymphocyte Count 0.33 X10^3/uL (0.83-4.51); Absolute Neutrophil Count 7.7 X10^3/uL (2.0-7.7); Basophil# 0.02 X10^3/uL; Basophil% 0.2 % (0-1); Eosinophil# 0.01 X10^3/uL; Eosinophils% 0.1 % (0-5); Hematocrit 26.1 % (40-54); Hemoglobin 8.4 g/dL (13.0-16.5); Lymphocyte # 0.33 X10^3/ul (0.83-4.51); Lymphocyte % 3.7 % (19-41); Mean Corp Hgb Conc 32.2 g/dL (32-36); Mean Corpuscular Hgb 27.9 pg (27.0-32.0); Mean Corpuscular Volume 86.7 fL (80-94); NRBC Flagged by Analyzer 0 % (0-5); Neutrophil % 86.4 % (47-70); POSITIVE DIFFERENTIAL YES; Platelet Count 174 K/mm3 (150-450); RBC Distribution Width CV 14.1 % (11.6-14.6); RBC Distribution Width SD 44.5 fl (35.1-43.9); Red Blood Count 3.01 M/mm3 (4.6-6.2); White Blood Count 8.9 K/mm3 (4.4-11.0)
[2020-07-03 00:59] LABS: Differential Indicated SCAN CRITERIA MET
[2020-07-03 01:04] LABS: Anion Gap 9 (5-15); BUN 34 mg/dL (7-18); BUN/Creat Ratio 10.5 RATIO (10-20); Calcium,Total 8.3 mg/dL (8.5-10.1); Chloride 101 mmol/L (98-107); Creatinine, Serum 3.23 mg/dL (0.70-1.30); EST Glomerular Filtration Rate 20 mL/min (>60); Est Glom Filt Rate - Afr Amer 24 mL/min (>60); Estimated Creatinine Clearance 17.94 ml/min; Glucose 211 mg/dL (74-106); Potassium 3.6 mmol/L (3.5-5.1); Sodium Level 131 mmol/L (136-145)
[2020-07-03] MEDS: 0.9% Normal Saline 1,000 ML 150 ML IV (01:04)
[2020-07-03 01:10] LABS: Lactic Acid 1.6 mmol/L (0.4-1.9)
[2020-07-03 01:47] LABS: Mucous, Urine 0 SEEN /hpf (<or=2+); Squamous Epithelial Cells - UA 0 SEEN /hpf (0-5)
[2020-07-03 01:48] LABS: Color, Urine Yellow (Yellow); Glucose, Dipstick 50 mg/dl (Normal); Ketone-Dipstick Negative (Negative); Leukocyte Esterase-Dipstick 500 /ul (Negative); Nitrite-Dipstick Negative (Negative); Occult Blood-Urine 250 /ul (Negative); Protein-Dipstick 100 mg/dl (Negative); Urine Bilirubin Dipstick Negative (Negative); Urine Clarity Cloudy (Clear); Urine Urobilinogen Normal (Normal)
[2020-07-03 01:53] LABS: Bacteria 2+ /hpf (None Seen); Red Blood Cells-Urine 25-50 SEEN /hpf (0-5); White Blood Cells 25-50 SEEN /hpf (0-5)
[2020-07-03 01:54] LABS: Yeast-Urine RARE /hpf (None Seen)
--- NOTE | 2020-07-03 02:08 | EX.ED.DYSGE1 ---
HPI History of Present Illness Chief Complaint: Complaint Informant: patient and spouse/S.O. Onset/Context/Timing Onset: Yesterday Current Severity: Mild Maximum Severity: Moderate Narrative Narrative: Patient presents with concern of UTI. He developed a fever of 103 last evening. gave him Tylenol around 10:30 PM. Patient does self cath for the past 8 months. He was admitted in both April and May with UTIs. Patient denies cough, congestion, or any other obvious potential source of infection. He did receive the Covid vaccine. [facility] Medical History Cancer of prostate Cancer of rectum Chronic kidney disease Diabetes Kidney disease Home Medications cholecalciferol (vitamin D3) 1,000 unit PO DAILY 12/08/19 [History Last Taken 05/22/20] loperamide 2 mg PO BID 12/08/19 [History Last Taken 05/22/20] hydralazine 50 mg PO BID #60 tablet 05/07/20 [Rx Last Taken 05/22/20] tamsulosin 0.4 mg PO DAILY #30 cap 05/07/20 [Rx Last Taken 05/22/20] acetaminophen 650 mg PO Q6H PRN PRN tablet 05/25/20 [Rx Last Taken Unknown] atorvastatin 10 mg PO QHS 07/03/20 [History Last Taken Unknown] insulin glargine 10 units SC DAILY 07/03/20 [History Last Taken Unknown] levofloxacin 250 mg PO Q48H #3 tab 07/03/20 [Rx Last Taken Unknown] Allergy/AdvReac Type Severity Reaction Status Date / Time No Known Allergies Allergy Verified 07/03/20 00:28 Surgical History S/P TURP (status post transurethral resection of prostate) Social History Smoking Status: Former smoker ROS ROS ED Constitutional Constitutional ED: Reports fever(s); Denies chills Eyes Eyes: Denies change in vision ENT ENT ED: Denies sore throat Cardiovascular Cardiovascular: Denies chest pain Respiratory/Chest Respiratory/Chest: Denies cough or dyspnea Gastrointestinal Gastrointestinal: Denies abdominal pain, diarrhea, nausea or vomiting Musculoskeletal Musculoskeletal: Reports arthralgias; Denies back pain Integumentary Denies rash Neurologic Neurologic: Denies headache(s) or weakness Psychiatric Psychiatric: Denies anxiety or depression Endocrine Endocrinology: Denies polydipsia or polyuria Allergic/Immunologic Allergic/Immunologic ED: Denies urticaria EXAM Physical Exam Const Vital Signs: 07/03/20 00:30 07/03/20 00:32 07/03/20 02:20 Temperature 99.4 F H 99.4 F H Temperature Source Oral Oral Pulse Rate 119 H 117 H 112 H Respiratory Rate 20 H 20 H 18 Blood Pressure 134/63 H 134/63 H 148/67 H Blood Pressure Mean 86 86 Pulse Ox 96 97 97 Oxygen Delivery Method Room Air Room Air Positive well nourished and well developed General Appearance ED: well developed HEENT Reports normocephalic and head/scalp atraumatic Eyes PERRL and EOMs intact bilaterally Neck supple Chest Wall inspection of chest normal and palpation of chest normal Resp normal respiratory effort and clear to auscultation bilaterally Cardio regular rhythm Rate: tachycardic GI normal to inspection, nondistended, normoactive bowel sounds Palpation: soft Extremity normal to inspection Extremity Narrative: 2+ bilateral lower extremity edema, symmetric General Extremety ED: Yes edema General Extremity: edema Neuro oriented x3 and no sensory deficits noted Sensorium / Orientation: alert Motor Exam: strength 5/5 throughout Psych mental status grossly normal Skin no rashes or lesions noted MDM MDM MDM Narrative Medical decision making narrative: Patient is ordered IV fluids. He received Tylenol prior to arrival. Lab Data Attestation: I reviewed the patient's lab results. Labs: Laboratory Results - last 24 hr 07/03/20 07/03/20 07/03/20 00:37 00:37 00:37 WBC 8.9 RBC 3.01 L Hgb 8.4 L Hct 26.1 L MCV 86.7 MCH 27.9 MCHC 32.2 RDW Std Deviation 44.5 H RDW Coeff of Darian 14.1 Plt Count 174 MPV 9.0 Immature Gran % (Auto) 0.600 Neut % (Auto) 86.4 H Lymph % (Auto) 3.7 L [place] % (Auto) 9.0 Eos % (Auto) 0.1 Baso % (Auto) 0.2 Absolute Neuts (auto) 7.7 Absolute Lymphs (auto) 0.33 L Nucleated RBC % 0 Sodium 131 L Potassium 3.6 Chloride 101 Carbon Dioxide 21.0 Anion Gap 9 BUN 34 H Creatinine 3.23 H Estim Creat Clear Calc 17.94 Est GFR (MDRD) Af Amer 24 L Est GFR (MDRD) Non-Af 20 L BUN/Creatinine Ratio 10.5 Glucose 211 H Lactic Acid 1.6 Calcium 8.3 L Urine Color Urine Clarity Urine pH Ur Specific [place] Urine Protein Urine Glucose (UA) Urine Ketones Urine Occult Blood Urine Nitrite Urine Bilirubin Urine Urobilinogen Ur Leukocyte Esterase Urine RBC Urine WBC Ur Squamous Epith Cells Urine Bacteria Urine Mucus Urine Yeast 07/03/20 01:25 WBC RBC Hgb Hct MCV MCH MCHC RDW Std Deviation RDW Coeff of Darian Plt Count MPV Immature Gran % (Auto) Neut % (Auto) Lymph % (Auto) [place] % (Auto) Eos % (Auto) Baso % (Auto) Absolute Neuts (auto) Absolute Lymphs (auto) Nucleated RBC % Sodium Potassium Chloride Carbon Dioxide Anion Gap BUN Creatinine Estim Creat Clear Calc Est GFR (MDRD) Af Amer Est GFR (MDRD) Non-Af BUN/Creatinine Ratio Glucose Lactic Acid Calcium Urine Color Yellow Urine Clarity Cloudy Urine pH 5.0 Ur Specific [place] 1.010 Urine Protein 100 H Urine Glucose (UA) 50 H Urine Ketones Negative Urine Occult Blood 250 H Urine Nitrite Negative Urine Bilirubin Negative Urine Urobilinogen Normal Ur Leukocyte Esterase 500 H Urine RBC 25-50 SEEN Urine WBC 25-50 SEEN Ur Squamous Epith Cells 0 SEEN Urine Bacteria 2+ Urine Mucus 0 SEEN Urine Yeast RARE Treatment and Re-Evaluation Comments:: Test results discussed with patient and at bedside. Urine does appear to be infected. Lab work appears to be at his baseline. Lactic acid is less than 2. I did review the last 2 urine cultures from his previous infections. He was treated for both Klebsiella followed by Pseudomonas. Both of these infections are susceptible to Levaquin. He will be given renally dosed Levaquin. I did advise them that urine culture results may change our treatment and if that is needed he will receive a phone call. He is given return instructions if not improving. Discharge Plan Triage Chief Complaint: Complaint ED Provider: Angelica Hinkle Dx/Rx/DC Orders Clinical Impression: Acute UTI Instructions: ED Bladder Infection, Male (Adult) Prescriptions: New levofloxacin 250 mg tablet 250 mg PO Q48H Qty: 3 RF: 0 No Action loperamide 2 MG capsule 2 mg PO BID RF: 0 cholecalciferol (vitamin D3) 1,000 UNIT tablet 1,000 unit PO DAILY RF: 0 tamsulosin 0.4 MG capsule 0.4 mg PO DAILY Qty: 30 RF: 0 hydralazine 50 MG tablet 50 mg PO BID Qty: 60 RF: 0 acetaminophen 325 MG tablet 650 mg PO Q6H PRN PRN (Reason: Pain Score 1-10/Temp > 100.7 F) RF: 0 atorvastatin 10 mg tablet 10 mg PO QHS RF: 0 insulin glargine 100 UNITS/ML insulin pen 10 units SC DAILY RF: 0 Primary Care Provider: Srinivas Thayer Referrals: Srinivas Thayer MD [Primary Care Provider] - 1 Week Disposition Disposition: Home, self care Discharge Date/Time: 07/03/20 02:26
[2020-07-03] MEDS: levoFLOXacin 500 MG Tablet PO (02:18)
[2020-07-03 02:20] VITALS: BP 148/67; PULSE 112; RESP 18; O2SAT 97
== END 2020-07-03 02:26 | disposition home or self-care (01) ==
PROVIDERS: Emergency Provider Emergency Medicine; PCP Family Medicine
DX: N39.0 Urinary tract infection, site not specified (principal); E11.22 Type 2 diabetes mellitus with diabetic chronic kidney disease; N18.9 Chronic kidney disease, unspecified; Z85.46 Personal history of malignant neoplasm of prostate; Z85.048 Personal history of other malignant neoplasm of rectum, rectosigmoid junction, and anus; Z87.440 Personal history of urinary (tract) infections; Z79.4 Long term (current) use of insulin; Z79.899 Other long term (current) drug therapy; Z87.891 Personal history of nicotine dependence
CPT/HCPCS: 36415; 80048; 81001; 83605; 85025; 87040; 87086; J7030; A4216

== ENCOUNTER 2020-07-03 09:53 | Inpatient (IN) | payer MEDICARE, SELFPAY ==
[2020-07-03 00:30] VITALS: BMI 25.3
[2020-07-03 09:55] VITALS: BP 109/0; PULSE 116; RESP 14; TEMP 36.6; O2SAT 98; BMI 23.2
--- NOTE | 2020-07-03 10:09 | EDS_ITS ---
HPI History of Present Illness Chief Complaint: Complaint Detail of Chief Complaint: Fever, vomiting, urinary tract infection Informant: patient Narrative Narrative: Patient presents to the emergency department with complaint of not feeling well. Patient was seen in the emergency department early this morning and was just discharged around 2:30 AM after being diagnosed with a urinary tract infection. Patient was started on Levaquin apparently and discharged home. When he woke up this morning the thought his hands look swollen and he was running a fever up to 102.8 and he vomited x1. Patient has had history of UTIs in the past. 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 Patient also has history of diabetes. He describes some mild back discomfort. Patient has been admitted for his prior to urinary tract infections. Prior similar symptoms: Yes PFSH PFSH Medical History Cancer of prostate Cancer of rectum Chronic kidney disease Diabetes Kidney disease Home Medications cholecalciferol (vitamin D3) 1,000 unit PO DAILY 12/08/19 [History Last Taken 05/22/20] loperamide 2 mg PO BID 12/08/19 [History Last Taken 05/22/20] hydralazine 50 mg PO BID #60 tablet 05/07/20 [Rx Last Taken 05/22/20] tamsulosin 0.4 mg PO DAILY #30 cap 05/07/20 [Rx Last Taken 05/22/20] acetaminophen 650 mg PO Q6H PRN PRN tablet 05/25/20 [Rx Last Taken Unknown] atorvastatin 10 mg PO QHS 07/03/20 [History Last Taken Unknown] insulin glargine 10 units SC DAILY 07/03/20 [History Last Taken Unknown] levofloxacin 250 mg PO Q48H #3 tab 07/03/20 [Rx Last Taken Unknown] Allergy/AdvReac Type Severity Reaction Status Date / Time No Known Allergies Allergy Verified 07/03/20 09:55 Surgical History S/P TURP (status post transurethral resection of prostate) Social History Smoking Status: Former smoker ROS ROS ED Constitutional Constitutional ED: Reports systems reviewed and no addt'l complaints, except as documented, chills and sweats; Denies body ache(s) or change in weight Eyes Eyes: Denies acute decrease in peripheral vision, change in vision, double vision or loss of vision ENT ENT ED: Reports none; Denies ear pain, lip swelling, loss taste/smell, neck pain, otalgia or sore throat Cardiovascular Cardiovascular: Reports none; Denies abdominal pain, chest pain with activity, leg edema, lightheadedness, palpitations, rapid heart rate or syncope Respiratory/Chest Respiratory/Chest: Reports none; Denies change in mental status, dry cough, dyspnea, hemoptysis, shortness of breath at rest or shortness of breath with exertion Gastrointestinal Gastrointestinal: Reports none, nausea and vomiting; Denies abdominal pain, change in stool character, diarrhea, hematemesis, hematochezia, melena or rectal bleeding Genitourinary Genitourinary ED: Reports none and dysuria; Denies abdominal discomfort, anuria, genital pain or polyuria Musculoskeletal Musculoskeletal: Reports none and back pain; Denies arthralgias, difficulty walking, extremity pain, muscle weakness or myalgias Integumentary Reports none; Denies abscess or rash Neurologic Neurologic: Reports none; Denies abnormal gait, confusion, focal weakness, frequent falls, headache(s), loss of vision, numbness, paresthesias, radicular pain, vertigo or weakness Psychiatric Psychiatric: Reports systems reviewed and no addt'l complaints, except as documented and none; Denies behavioral changes, confusion, difficulty concentrating, hallucinations, suicidal ideation, tactile hallucinations or visual hallucinations Endocrine Endocrinology: Denies none, cold intolerance, excessive sweating, fatigue or heat intolerance Hematologic/Lymphatic Hematologic/Lymphatic: Reports none; Denies anemia, easy bleeding or easy br uising Allergic/Immunologic Allergic/Immunologic ED: Denies as per HPI, none, lip swelling, mouth swelling, throat swelling, tongue swelling or hives EXAM Physical Exam Const Vital Signs: 07/03/20 09:55 07/03/20 11:06 Temperature 98 F Temperature Source Temporal Pulse Rate 116 H 92 Respiratory Rate 14 14 Blood Pressure 109/0 L 111/53 L Blood Pressure Mean 36 72 Pulse Ox 98 94 Oxygen Delivery Method Room Air Room Air Positive well nourished and well developed General Appearance ED: well developed and NAD HEENT Reports TM's clear and moist mucous membranes normocephalic and atraumatic; Negative for trauma or tenderness Tympanic Membrane ED: Yes TM's clear Eyes PERRL and EOMs intact bilaterally General Eye ED: Negative for pale conjunctiva or scleral icterus Neck no lymphadenopathy, supple and no JVD General: Negative for tenderness Chest Wall inspection of chest normal and palpation of chest normal Chest: Negative for tenderness Resp normal respiratory effort and clear to auscultation bilaterally Effort and Inspection: Negative for respiratory distress or pain with movement Auscultation: Negative for rhonchi, wheezes or diminished lung sounds Cardio regular rate, regular rhythm, S1 normal heart sound, S2 normal heart sound and no murmurs Rate: tachycardic Peripheral Pulses: pulses 2+ throughout GI normal to inspection, nondistended, normoactive bowel sounds, soft to palpation, non-tender, non-distended and no masses Back/Spine no CVA tenderness and no thoracic nor lumbar tenderness Extremity normal to inspection General Extremety ED: Negative for edema General Extremity: Negative for edema Neuro oriented x3, CN's II-XII intact bilaterally, no sensory deficits noted and gait normal Sensorium / Orientation: awake, alert, oriented to person, oriented to place and oriented to time Motor Exam: strength 5/5 throughout and strength abnormal Psych mental status grossly normal Skin no rashes or lesions noted and no wounds MDM MDM MDM Narrative Medical decision making narrative: Patient with continued increase in his creatinine. Technically meets sepsis criteria. Patient will be admitted for IV fluids and antibiotics. Lab Data Attestation: I reviewed the patient's lab results. Labs: Laboratory Results - last 24 hr 07/03/20 07/03/20 07/03/20 10:32 10:32 10:32 WBC 9.4 RBC 2.96 L Hgb 8.0 L Hct 25.5 L MCV 86.1 MCH 27.0 MCHC 31.4 L RDW Std Deviation 44.8 H RDW Coeff of Darian 14.2 Plt Count 154 MPV 9.1 Immature Gran % (Auto) 0.700 Neut % (Auto) 89.5 H Lymph % (Auto) 1.8 L [place] % (Auto) 7.8 Eos % (Auto) 0.0 Baso % (Auto) 0.2 Absolute Neuts (auto) 8.4 H Absolute Lymphs (auto) 0.17 L Nucleated RBC % 0 Sodium 130 L Potassium 4.1 Chloride 100 Carbon Dioxide 22.0 Anion Gap 8 BUN 39 H Creatinine 3.88 H Estim Creat Clear Calc 14.94 Est GFR (MDRD) Af Amer 19 L Est GFR (MDRD) Non-Af 16 L BUN/Creatinine Ratio 10.1 Glucose 224 H Lactic Acid 1.0 Calcium 8.2 L Discharge Plan Triage Chief Complaint: Complaint ED Provider: Bonnie Lewis Dx/Rx/DC Orders Clinical Impression: Acute UTI, Recent DEISI on CKD, Sepsis Prescriptions: No Action loperamide 2 MG capsule 2 mg PO BID RF: 0 cholecalciferol (vitamin D3) 1,000 UNIT tablet 1,000 unit PO DAILY RF: 0 tamsulosin 0.4 MG capsule 0.4 mg PO DAILY Qty: 30 RF: 0 hydralazine 50 MG tablet 50 mg PO BID Qty: 60 RF: 0 acetaminophen 325 MG tablet 650 mg PO Q6H PRN PRN (Reason: Pain Score 1-10/Temp > 100.7 F) RF: 0 atorvastatin 10 mg tablet 10 mg PO QHS RF: 0 insulin glargine 100 UNITS/ML insulin pen 10 units SC DAILY RF: 0 levofloxacin 250 mg tablet 250 mg PO Q48H Qty: 3 RF: 0 Primary Care Provider: Srinivas Thayer Referrals: Srinivas Thayer MD [Primary Care Provider] - Disposition Disposition: Acute Care Hospital [facility]
[2020-07-03 10:52] LABS: Absolute Lymphocyte Count 0.17 X10^3/uL (0.83-4.51); Absolute Neutrophil Count 8.4 X10^3/uL (2.0-7.7); Basophil# 0.02 X10^3/uL; Basophil% 0.2 % (0-1); Hematocrit 25.5 % (40-54); Lymphocyte # 0.17 X10^3/ul (0.83-4.51); Lymphocyte % 1.8 % (19-41); Mean Corp Hgb Conc 31.4 g/dL (32-36); Mean Corpuscular Volume 86.1 fL (80-94); Mean Platelet Vol. 9.1 fl (6.2-12.0); Monocyte# 0.74 X10^3/uL; Monocyte% 7.8 % (0-10); NRBC Flagged by Analyzer 0 % (0-5); Neutrophil # 8.43 X10^3/uL (2.7-7.7); Neutrophil % 89.5 % (47-70); POSITIVE DIFFERENTIAL YES; Platelet Count 154 K/mm3 (150-450); RBC Distribution Width CV 14.2 % (11.6-14.6); RBC Distribution Width SD 44.8 fl (35.1-43.9); Red Blood Count 2.96 M/mm3 (4.6-6.2); White Blood Count 9.4 K/mm3 (4.4-11.0)
[2020-07-03 10:59] LABS: Differential Indicated SCAN CRITERIA MET
[2020-07-03] MEDS: Ondansetron 4 MG/2 ML Vial IV (11:01)
[2020-07-03] MEDS: 0.9% Normal Saline 1,000 ML 1000 ML IV (11:01)
[2020-07-03] MEDS: 0.9% Normal Saline 1,000 ML 150 ML IV ×3 (11:01→16:08)
[2020-07-03 11:05] LABS: Anion Gap 8 (5-15); BUN 39 mg/dL (7-18); BUN/Creat Ratio 10.1 RATIO (10-20); Calcium,Total 8.2 mg/dL (8.5-10.1); Chloride 100 mmol/L (98-107); Creatinine, Serum 3.88 mg/dL (0.70-1.30); EST Glomerular Filtration Rate 16 mL/min (>60); Est Glom Filt Rate - Afr Amer 19 mL/min (>60); Estimated Creatinine Clearance 14.94 ml/min; Glucose 224 mg/dL (74-106); Potassium 4.1 mmol/L (3.5-5.1); Sodium Level 130 mmol/L (136-145)
[2020-07-03 11:06] VITALS: BP 111/53; PULSE 92; RESP 14; O2SAT 94
--- NOTE | 2020-07-03 11:41 | NURSING ---
DR RICA ROTHMAN
--- NOTE | 2020-07-03 13:35 | NURSING ---
Addendum entered by Candy Clement 07/03/20 13:58: FEVER, SEPSIS, UTI, AI ON CHRONIC RENAL FAILURE Original Note: MEDS SURG OBS JOPPERI FEVER
[2020-07-03 13:39] VITALS: BP 127/60; PULSE 102; RESP 17; TEMP 37.2; O2SAT 97
[2020-07-03 13:41] LABS: Bedside Glucose 203 mg/dL (70-110)
--- NOTE | 2020-07-03 13:58 | HP.PCM.HOS_ITS ---
HPI - General General Date of Admission: 07/03/20 HPI Narrative ALEA SALGADO, is a 79 M who presents fever this AM. Temp of 103. Went to ED and Dx with UTI and DC'd with LVQ. At home, again had a fever of 102.3. reports he has had decreased urine outpt despite self-catherization. She also reports he has been drinking well. He did have a 1x episdoe of emesis. Contacted by ED for admission for UTI. [facility] Medical History Cancer of prostate Cancer of rectum Chronic kidney disease Diabetes Kidney disease Home Medications cholecalciferol (vitamin D3) 1,000 unit PO DAILY 12/08/19 [History Last Taken 07/03/20] loperamide 2 mg PO BID 12/08/19 [History Last Taken 07/03/20] hydralazine 50 mg PO BID #60 tablet 05/07/20 [Rx Last Taken 07/03/20] tamsulosin 0.4 mg PO DAILY #30 cap 05/07/20 [Rx Last Taken 07/03/20] acetaminophen 650 mg PO Q6H PRN PRN tablet 05/25/20 [Rx Last Taken 07/03/20] atorvastatin 10 mg PO QHS 07/03/20 [History Last Taken 07/02/20] insulin glargine 10 units SC DAILY 07/03/20 [History Last Taken 07/02/20] levofloxacin 250 mg PO Q48H #3 tab 07/03/20 [Rx Last Taken 07/02/20] Allergy/AdvReac Type Severity Reaction Status Date / Time No Known Allergies Allergy Verified 07/03/20 09:55 Surgical History S/P TURP (status post transurethral resection of prostate) Social History Smoking Status: Former smoker ROS ROS Narrative All review of systems were negative except as mentioned above in the history of present illness and the other review of systems. Cardiovascular Cardiovascular: Denies chest pain or palpitations Respiratory/Chest Respiratory/Chest: Denies cough Vital Signs Vital Signs Vital Signs: 07/03/20 09:55 07/03/20 11:06 07/03/20 13:39 Temperature 36.6 C 37.2 C Temperature Source Temporal Temporal Pulse Rate 116 H 92 102 H Respiratory Rate 14 14 17 Blood Pressure 109/0 L 111/53 L 127/60 H Blood Pressure Mean 36 72 82 Pulse Ox 98 94 97 Oxygen Delivery Method Room Air Room Air Room Air Physical Exam Const alert General Appearance: cooperative HEENT normocephalic and moist oral mucous membranes Resp normal respiratory effort and clear to auscultation bilaterally Cardio regular rate, regular rhythm, S1 normal heart sound and S2 normal heart sound GI normal to inspection, nondistended, normoactive bowel sounds, non-tender and non-distended Neuro oriented x3 Sensorium / Orientation: alert Psych affect normal Lab / Micro Data Attestation: I reviewed the patient's lab results. Result Diagrams: 07/03/20 10:32 07/03/20 10:32 Labs: Laboratory Results - last 24 hr 07/03/20 07/03/20 07/03/20 10:32 10:32 10:32 WBC 9.4 RBC 2.96 L Hgb 8.0 L Hct 25.5 L MCV 86.1 MCH 27.0 MCHC 31.4 L RDW Std Deviation 44.8 H RDW Coeff of Darian 14.2 Plt Count 154 MPV 9.1 Immature Gran % (Auto) 0.700 Neut % (Auto) 89.5 H Lymph % (Auto) 1.8 L [place] % (Auto) 7.8 Eos % (Auto) 0.0 Baso % (Auto) 0.2 Absolute Neuts (auto) 8.4 H Absolute Lymphs (auto) 0.17 L Nucleated RBC % 0 Differential Comment COMMENT Sodium 130 L Potassium 4.1 Chloride 100 Carbon Dioxide 22.0 Anion Gap 8 BUN 39 H Creatinine 3.88 H Estim Creat Clear Calc 14.94 Est GFR (MDRD) Af Amer 19 L Est GFR (MDRD) Non-Af 16 L BUN/Creatinine Ratio 10.1 Glucose 224 H Lactic Acid 1.0 Calcium 8.2 L POC Glucose 07/03/20 13:37 WBC RBC Hgb Hct MCV MCH MCHC RDW Std Deviation RDW Coeff of Darian Plt Count MPV Immature Gran % (Auto) Neut % (Auto) Lymph % (Auto) [place] % (Auto) Eos % (Auto) Baso % (Auto) Absolute Neuts (auto) Absolute Lymphs (auto) Nucleated RBC % Differential Comment Sodium Potassium Chloride Carbon Dioxide Anion Gap BUN Creatinine Estim Creat Clear Calc Est GFR (MDRD) Af Amer Est GFR (MDRD) Non-Af BUN/Creatinine Ratio Glucose Lactic Acid Calcium POC Glucose 203 H Micro: Microbiology 07/03/20 12:10 SARS-CoV-2 Antigen (Rapid) - Final Nasal Secretion Assessment & Plan Assessment/Plan (1) Abnormal urinalysis: (2) Debility: (3) Decreased urine output: PLAN: 1. abnormal UA * only slightly elevated WBC * already received LVQ in ED * monitor for now 2. Fever * at home * COVID-19 negative (has been vaccinated) * Follow up BCx, UCx 3. Decreased urine outpt * check bladder scan * continue intermittent bladder scan 4. Debility * PT OT 5. VTE prophylaxis: LMWH 6. ACP: sarahi pt. DNRCCA, DNI Visit Charges OBSV E&M: 43192 Initial observation care L2
[2020-07-03 15:36] VITALS: BMI 24.7
[2020-07-03 15:55] VITALS: BP 160/74; PULSE 125; RESP 18; TEMP 37.4; O2SAT 95
[2020-07-03 16:30] LABS: Bedside Glucose 153 mg/dL (70-110)
[2020-07-03] MEDS: Insulin Lispro 100 UNIT/ML INSULN.PEN SC (16:34)
[2020-07-03 19:50] VITALS: TEMP 39.3
[2020-07-03] MEDS: Acetaminophen 650 MG Suppository RC (19:51)
--- NOTE | 2020-07-03 20:50 | NURSING ---
pt requested this nurse to straight cath him. this nurse attempted but was unsuccessful. Pt then attempted to straight cath himself after 40 min. we both was still unable cath. Liv recinos was notified dr chase consulted and will be in. Bladder scan for 598. Pt then wanted to try straight cathing himself again in bathroom. Pt walked to bathroom. He was able to pass the his cath from home. Pt said he has lots of scar tissue from the prostate ca. Pt only able to get 300cc of jean urine. Pt then asst back to bed. DR Chase then walked in after pt just got back to bed. Dr chase said he was not going to cath him since he was able to get some out. .
--- NOTE | 2020-07-03 22:05 | PCM.CONS.U ---
Assessment & Plan Assessment/Plan (1) Cancer of prostate: (2) Hydronephrosis: QUALIFIERS: Hydronephrosis type: other Qualified Code(s): N13.39 - Other hydronephrosis PLAN: 79-year-old male with a history of prostate cancer treated with radiation long time ago he required bilateral stents and a Judd catheter last time he was in the hospital for obstruction he does have a history of chronic renal insufficiency his creatinine is at 3.8 other go back and look and see what his baseline creatinine is could be acutely raised from this recent urinary tract infection. He was able to self catheterize himself this evening after coming in and seeing him so no surgical intervention was necessary since he was able to catheterize himself. He states it is kind of positional and is able to do catheterize himself is if he sitting on a hard surface and it hard to do when laying in the soft bed. Could be positional. Continue with treatment for his UTI with antibiotics await culture results. Like to follow his creatinine to see if it trends back down the baseline. Call me with questions. HPI Consult Data Date of Consult: 07/03/20 HPI Narrative HPI Narrative: ALEA SALGADO, is a 79 M who presents to the hospital with a history of a recent acute UTI infection. He has a history of prostate cancer treated long time ago with radiation therapy and he has developed obstruction but bilaterally and I had to place stents bilaterally in both kidneys about 6 to 8 weeks ago. He was seen in the office within the past month or so and he did have a catheter at that point and the catheter was removed and he does self intermittent catheterization. This evening I was called in to see the patient because he was not able to catheterize himself but when I arrived he was able to catheterize himself and drained about 300 cc from his bladder. He does have bilateral stents in place the stents or not due to be changed till July. [facility] Medical History (Updated 07/03/20 @ 19:43 by Maryam Archuleta) Cancer Cancer of prostate Cancer of rectum Chronic kidney disease Diabetes Kidney disease Home Medications cholecalciferol (vitamin D3) 1,000 unit PO DAILY 12/08/19 [History Last Taken 07/03/20] loperamide 2 mg PO BID 12/08/19 [History Last Taken 07/03/20] hydralazine 50 mg PO BID #60 tablet 05/07/20 [Rx Last Taken 07/03/20] tamsulosin 0.4 mg PO DAILY #30 cap 05/07/20 [Rx Last Taken 07/03/20] acetaminophen 650 mg PO Q6H PRN PRN tablet 05/25/20 [Rx Last Taken 07/03/20] atorvastatin 10 mg PO QHS 07/03/20 [History Last Taken 07/02/20] insulin glargine 10 units SC DAILY 07/03/20 [History Last Taken 07/02/20] levofloxacin 250 mg PO Q48H #3 tab 07/03/20 [Rx Last Taken 07/02/20] Allergy/AdvReac Type Severity Reaction Status Date / Time No Known Allergies Allergy Verified 07/03/20 09:55 Surgical History S/P TURP (status post transurethral resection of prostate) Social History Smoking Status: Former smoker ROS Constitutional Constitutional: Reports fever(s) Eyes Eyes: Denies blurry vision or change in vision ENT HEENT: Reports none Cardiovascular Cardiovascular: Denies chest pain or palpitations Respiratory/Chest Respiratory/Chest: Denies cough or shortness of breath with exertion Gastrointestinal Gastrointestinal: Denies abdominal pain, constipation or diarrhea Genitourinary Genitourinary: Reports systems reviewed and no addt'l complaints, except as documented Musculoskeletal Musculoskeletal: Denies back pain, joint stiffness or joint swelling Integumentary Integumentary: Denies dry skin, jaundice, lesions or rash Neurologic Neurologic: Denies confusion, syncope or weakness Psychiatric Psychiatric: Reports none; Denies anxiety or depression Endocrine Endocrinology: Denies excessive sweating, fatigue or flushing Hematologic/Lymphatic Hematologic/Lymphatic: Denies anemia, easy bleeding or easy bruising Physical Exam Const alert and oriented x3 General Appearance: cooperative HEENT normocephalic, head/scalp atraumatic, EAC's normal and TM's normal bilaterally Eyes PERRL and EOMs intact bilaterally Pupil: sluggish Neck no lymphadenopathy, supple and no JVD General: trachea midline Lymph Lymphatic: no lymphadenopathy noted, lymphedema and lymphadenopathy Resp normal respiratory effort, normal air movement and clear to auscultation bilaterally Cardio regular rate, regular rhythm and peripheral pulses 2+ throughout GI soft to palpation, non-tender and non-distended Extremity normal capillary refill and no clubbing, cyanosis or edema General Extremity: no tenderness to palpation of joints or extremities Skin no rashes or lesions noted General Skin Exam: turgor normal Lesions: no lesions Rashes: no rashes Neuro CN's II-XII intact bilaterally Speech: speech normal Motor Exam: strength 5/5 throughout; Negative for general weakness Psych thought process normal, cooperative and affect normal Appearance: appropriate Lab / Micro Data Result Diagrams: 07/03/20 10:32 07/03/20 10:32 Labs: Laboratory Results - last 24 hr 07/03/20 07/03/20 07/03/20 10:32 10:32 10:32 WBC 9.4 RBC 2.96 L Hgb 8.0 L Hct 25.5 L MCV 86.1 MCH 27.0 MCHC 31.4 L RDW Std Deviation 44.8 H RDW Coeff of Darian 14.2 Plt Count 154 MPV 9.1 Immature Gran % (Auto) 0.700 Neut % (Auto) 89.5 H Lymph % (Auto) 1.8 L [place] % (Auto) 7.8 Eos % (Auto) 0.0 Baso % (Auto) 0.2 Absolute Neuts (auto) 8.4 H Absolute Lymphs (auto) 0.17 L Nucleated RBC % 0 Differential Comment COMMENT Sodium 130 L Potassium 4.1 Chloride 100 Carbon Dioxide 22.0 Anion Gap 8 BUN 39 H Creatinine 3.88 H Estim Creat Clear Calc 14.94 Est GFR (MDRD) Af Amer 19 L Est GFR (MDRD) Non-Af 16 L BUN/Creatinine Ratio 10.1 Glucose 224 H Lactic Acid 1.0 Calcium 8.2 L POC Glucose 07/03/20 07/03/20 13:37 16:23 WBC RBC Hgb Hct MCV MCH MCHC RDW Std Deviation RDW Coeff of Darian Plt Count MPV Immature Gran % (Auto) Neut % (Auto) Lymph % (Auto) [place] % (Auto) Eos % (Auto) Baso % (Auto) Absolute Neuts (auto) Absolute Lymphs (auto) Nucleated RBC % Differential Comment Sodium Potassium Chloride Carbon Dioxide Anion Gap BUN Creatinine Estim Creat Clear Calc Est GFR (MDRD) Af Amer Est GFR (MDRD) Non-Af BUN/Creatinine Ratio Glucose Lactic Acid Calcium POC Glucose 203 H 153 H Micro: Microbiology 07/03/20 12:10 SARS-CoV-2 Antigen (Rapid) - Final Nasal Secretion
[2020-07-03 22:15] VITALS: BP 148/68; PULSE 111; RESP 18; TEMP 38.1; O2SAT 96
[2020-07-03] MEDS: hydrALAZINE 50 MG Tablet PO (22:15)
[2020-07-03] MEDS: Loperamide 2 MG Capsule PO (23:22)
[2020-07-03] MEDS: Atorvastatin Calcium 10 MG Tablet PO (23:22)
[2020-07-04] VITALS (10 sets, daily range): BP systolic 125–149; BP diastolic 59–65; PULSE 92–117; RESP 16–18; TEMP 36.8–39.1; O2SAT 95–98
[2020-07-04 00:21] LABS: Bedside Glucose 124 mg/dL (70-110)
[2020-07-04] MEDS: Acetaminophen 325 MG Tablet 650 MG PO ×3 (00:27→20:37)
--- NOTE | 2020-07-04 02:07 | ED.RN ---
DR.[facility] HANDED THE POSITIVE BLOOD CULTURE RESULTS PRINTED TO ED FROM LAB
--- NOTE | 2020-07-04 06:00 | NURSING ---
pt bladder scan for 204. Pt said he he wants to cath himself at 0900 or 930 am. He said he only does it 3 times a day. He also said he cant feel when he is full.
[2020-07-04 06:21] LABS: Absolute Lymphocyte Count 0.22 X10^3/uL (0.83-4.51); Absolute Neutrophil Count 5.4 X10^3/uL (2.0-7.7); Basophil# 0.01 X10^3/uL; Basophil% 0.2 % (0-1); Hematocrit 23.3 % (40-54); Hemoglobin 7.2 g/dL (13.0-16.5); Lymphocyte # 0.22 X10^3/ul (0.83-4.51); Lymphocyte % 3.5 % (19-41); Mean Corp Hgb Conc 30.9 g/dL (32-36); Mean Corpuscular Hgb 27.4 pg (27.0-32.0); Mean Corpuscular Volume 88.6 fL (80-94); Mean Platelet Vol. 9.1 fl (6.2-12.0); Monocyte# 0.53 X10^3/uL; Monocyte% 8.5 % (0-10); NRBC Flagged by Analyzer 0 % (0-5); Neutrophil # 5.41 X10^3/uL (2.7-7.7); Neutrophil % 87.2 % (47-70); POSITIVE DIFFERENTIAL YES; Platelet Count 128 K/mm3 (150-450); RBC Distribution Width CV 14.3 % (11.6-14.6); RBC Distribution Width SD 46.2 fl (35.1-43.9); Red Blood Count 2.63 M/mm3 (4.6-6.2); White Blood Count 6.2 K/mm3 (4.4-11.0)
[2020-07-04 06:23] LABS: Differential Indicated SCAN CRITERIA MET
[2020-07-04 06:30] LABS: Bedside Glucose 103 mg/dL (70-110)
[2020-07-04 06:37] LABS: Differential Comment SCANNED; Hypochromasia 1+
[2020-07-04 06:42] LABS: Anion Gap 7 (5-15); BUN 49 mg/dL (7-18); BUN/Creat Ratio 9.6 RATIO (10-20); Calcium,Total 7.9 mg/dL (8.5-10.1); Chloride 103 mmol/L (98-107); Creatinine, Serum 5.09 mg/dL (0.70-1.30); EST Glomerular Filtration Rate 12 mL/min (>60); Est Glom Filt Rate - Afr Amer 14 mL/min (>60); Estimated Creatinine Clearance 11.39 ml/min; Glucose 114 mg/dL (74-106); Potassium 4.9 mmol/L (3.5-5.1); Sodium Level 131 mmol/L (136-145)
--- NOTE | 2020-07-04 07:53 | US_ITS ---
STUDY: RENAL ULTRASOUND - COMPLETE REASON FOR EXAM: Male, 79 years old. Acute kidney injury TECHNIQUE: Ultrasound evaluation of the kidneys was performed with real-time and static zavala-scale imaging. COMPARISON: Comparison is made with prior study dated 05/03/2020. FINDINGS: RIGHT KIDNEY: with mild renal atrophy. The right kidney measures 8.7 cm x 3.3 cm x 3.8 cm. There is a normal cortex of the right kidney. The renal cortex measures 1.1 cm. There is a 1.7 cm x 1.3 cm x 1.3 cm cyst in the upper pole of the kidney. There are no right renal calculi. There is mild hydronephrosis of the right kidney. DISTAL RIGHT URETER: There is non-visualization of the distal right ureter. There is no demonstrated right ureterovesical junction calculus. There is no demonstrated right ureteral jet. LEFT KIDNEY: Normal location of the left kidney, which is normal in size. The left kidney measures 11.6 cm x 4.4 cm x 6.5 cm. There is a normal cortex of the left kidney. The renal cortex measures 2.1 cm. There is no left renal mass or cyst. There are no left renal calculi. There is moderate hydronephrosis of the left kidney. DISTAL LEFT URETER: There is non-visualization of the distal left ureter. There is no demonstrated left ureterovesical junction calculus. There is no demonstrated left ureteral jet. BLADDER: The urinary bladder is not adequately distended for evaluation. US/Kidney and Bladder IMPRESSION: Mild atrophy of the right kidney. Mild right hydronephrosis. Moderate left hydronephrosis. Electronically Signed: Michael Cormier MD at 9:31 EDT , Service support ,
[2020-07-04] MEDS: hydrALAZINE 50 MG Tablet PO ×2 (08:22→20:36)
[2020-07-04] MEDS: Tamsulosin HCl 0.4 MG Capsule PO (08:22)
[2020-07-04] MEDS: Loperamide 2 MG Capsule PO ×2 (08:23→20:36)
--- NOTE | 2020-07-04 09:27 | ECHOD_ITS ---
Reason For Study: MURMUR Procedure This was a 2D Doppler, Color Flow transthoracic echocardiogram. Exam performed portable in patient room. Left Ventricle Normal left ventricle. The estimated ejection fraction is EF 55-60% %. Right Ventricle Normal right ventricle. Normal systolic function. Atria Normal left atrium. Normal right atrium. Mitral Valve The mitral valve is structurally normal. No prolapse or stenosis seen. Mild (1+) mitral valve insufficiency. Tricuspid Valve Normal tricuspid valve. Mild tricuspid valve insufficiency. Aortic Valve Aortic sclerosis, no stenosis. Mild (1+) aortic valve insufficiency. Pulmonic Valve The pulmonic valve is not well visualized. Great Vessels Normal aortic root. Pericardium/Pleural No pericardial effusion. MMode/2D Measurements & Calculations LVIDd: 5.2 cm IVSd: 0.81 cm Ao root diam: 2.8 cm LVIDs: 3.5 cm LVPWd: 0.97 cm RVDd: 3.4 cm FS: 33.1 % LAV(MOD-bp): 79.6 ml LA A4 area: 23.7 cm2 LA dimension(2D): 3.2 cm LAV(MOD-bp) Indexed: 42.6 ml/m2 LAV(MOD-sp2): 71.4 ml LAV(MOD-sp4): 74.3 ml RA A4 area: 13.7 cm2 Doppler Measurements & Calculations MV E max freddy: 108.8 cm/sec Lat Peak E' Freddy: 9.6 cm/sec Med Peak E' Freddy: 7.9 cm/sec MV A max freddy: 142.6 cm/sec E/E' lat: 11.4 E/E' med: 13.7 MV E/A: 0.76 Ao V2 max: 272.6 cm/sec LV V1 max: 149.1 cm/sec TR max freddy: 282.2 cm/sec Ao max P.7 mmHg LV V1 max P.9 mmHg TR max P.9 mmHg Ao V2 mean: 190.7 cm/sec LV V1 mean P.7 mmHg Ao mean P.9 mmHg LV V1 mean: 115.3 cm/sec Ao V2 VTI: 44.4 cm LV V1 VTI: 25.4 cm ECHO/Echo Complete Interpretation Summary The estimated ejection fraction is EF 55-60% %. Normal LV systolic function Mild grade # I diastolic Dysfunction Mild MR Mild TR Mild AR Ordering Physician: Eric Mccollum Referring Physician: Srinivas Thayer Performed By: Jillian Damico, TERRY, RVT
--- NOTE | 2020-07-04 10:03 | PCM.CONS.GEN ---
Assessment & Plan Assessment/Plan (1) Sepsis: (2) Candidemia: PLAN: Presented with sepsis, decreased UOP, does straight cath at home. Fully vaccinated for covid. 2 of 2 bcx with yeast on gram stain. Spoke with micro lab, they will do germ tube test once it starts growing to confirm triny species. Suspect urinary source, no central lines in place. Will start micafungin stat, check echo. Denies any vision changes. Splinter hemorrhages seen on fingers. Will follow, thank you, d/w pharmacy (3) Stage 3a chronic kidney disease: HPI Consult Data Date of Consult: 07/04/20 HPI Narrative HPI Narrative: ALEA SALGADO, is a 79 M with CKD, h/o colon and prostate cancer, h/o TURP, does straight cath at home 3 times a day, does not re-use catheters. Noticed several days of decreased UOP. Developed fever, chills, nausea, pain across his back. No vision changes. Some diffuse aches. Has completed covid series. Came to ED yesterday, given dose of levaquin and discharged. Came back later that day with worsening symptoms, admitted, fever to 102.7, bcx showed yeast, no abx started. This AM, feeling about the same. Seen by urology. Full ROS performed and neg except as noted above. [facility] Medical History Cancer Cancer of prostate Cancer of rectum Chronic kidney disease Diabetes Kidney disease Home Medications cholecalciferol (vitamin D3) 1,000 unit PO DAILY 12/08/19 [History Last Taken 07/03/20] loperamide 2 mg PO BID 12/08/19 [History Last Taken 07/03/20] hydralazine 50 mg PO BID #60 tablet 05/07/20 [Rx Last Taken 07/03/20] tamsulosin 0.4 mg PO DAILY #30 cap 05/07/20 [Rx Last Taken 07/03/20] acetaminophen 650 mg PO Q6H PRN PRN tablet 05/25/20 [Rx Last Taken 07/03/20] atorvastatin 10 mg PO QHS 07/03/20 [History Last Taken 07/02/20] insulin glargine 10 units SC DAILY 07/03/20 [History Last Taken 07/02/20] levofloxacin 250 mg PO Q48H #3 tab 07/03/20 [Rx Last Taken 07/02/20] Allergy/AdvReac Type Severity Reaction Status Date / Time No Known Allergies Allergy Verified 07/03/20 09:55 Surgical History S/P TURP (status post transurethral resection of prostate) Social History Smoking Status: Former smoker Physical Exam Const alert and oriented x3 General Appearance: cooperative HEENT normocephalic and head/scalp atraumatic Eyes PERRL and EOMs intact bilaterally Neck supple and No nodes Resp normal air movement and clear to auscultation bilaterally Cardio regular rate and regular rhythm Heart Sounds: murmur GI normal to inspection, nondistended, normoactive bowel sounds Extremity no clubbing, cyanosis or edema Skin no rashes or lesions noted Skin Narrative: splinter hemorrhages on R 3rd finger, L 1, 3, and 5th fingers (? 2nd). None on toes. Neuro CN's II-XII intact bilaterally Neuro Narrative: tremor Lab / Micro Data Result Diagrams: 07/04/20 06:00 07/04/20 06:00 Labs: Laboratory Results - last 24 hr 07/03/20 07/03/20 07/03/20 10:32 10:32 10:32 WBC 9.4 RBC 2.96 L Hgb 8.0 L Hct 25.5 L MCV 86.1 MCH 27.0 MCHC 31.4 L RDW Std Deviation 44.8 H RDW Coeff of Darian 14.2 Plt Count 154 MPV 9.1 Immature Gran % (Auto) 0.700 Neut % (Auto) 89.5 H Lymph % (Auto) 1.8 L [place] % (Auto) 7.8 Eos % (Auto) 0.0 Baso % (Auto) 0.2 Absolute Neuts (auto) 8.4 H Absolute Lymphs (auto) 0.17 L Nucleated RBC % 0 Differential Comment COMMENT Atypical Lymphocytes Hypochromasia Sodium 130 L Potassium 4.1 Chloride 100 Carbon Dioxide 22.0 Anion Gap 8 BUN 39 H Creatinine 3.88 H Estim Creat Clear Calc 14.94 Est GFR (MDRD) Af Amer 19 L Est GFR (MDRD) Non-Af 16 L BUN/Creatinine Ratio 10.1 Glucose 224 H Lactic Acid 1.0 Calcium 8.2 L POC Glucose 07/03/20 07/03/20 07/03/20 13:37 16:23 23:38 WBC RBC Hgb Hct MCV MCH MCHC RDW Std Deviation RDW Coeff of Darian Plt Count MPV Immature Gran % (Auto) Neut % (Auto) Lymph % (Auto) [place] % (Auto) Eos % (Auto) Baso % (Auto) Absolute Neuts (auto) Absolute Lymphs (auto) Nucleated RBC % Differential Comment Atypical Lymphocytes Hypochromasia Sodium Potassium Chloride Carbon Dioxide Anion Gap BUN Creatinine Estim Creat Clear Calc Est GFR (MDRD) Af Amer Est GFR (MDRD) Non-Af BUN/Creatinine Ratio Glucose Lactic Acid Calcium POC Glucose 203 H 153 H 124 H 07/04/20 07/04/20 07/04/20 06:00 06:00 06:27 WBC 6.2 RBC 2.63 L Hgb 7.2 L Hct 23.3 L MCV 88.6 MCH 27.4 MCHC 30.9 L RDW Std Deviation 46.2 H RDW Coeff of Darian 14.3 Plt Count 128 L MPV 9.1 Immature Gran % (Auto) 0.600 Neut % (Auto) 87.2 H Lymph % (Auto) 3.5 L [place] % (Auto) 8.5 Eos % (Auto) 0.0 Baso % (Auto) 0.2 Absolute Neuts (auto) 5.4 Absolute Lymphs (auto) 0.22 L Nucleated RBC % 0 Differential Comment SCANNED Atypical Lymphocytes Hypochromasia 1+ Sodium 131 L Potassium 4.9 Chloride 103 Carbon Dioxide 21.0 Anion Gap 7 BUN 49 H Creatinine 5.09 H Estim Creat Clear Calc 11.39 Est GFR (MDRD) Af Amer 14 L Est GFR (MDRD) Non-Af 12 L BUN/Creatinine Ratio 9.6 L Glucose 114 H Lactic Acid Calcium 7.9 L POC Glucose 103 Micro: Microbiology 07/03/20 12:10 SARS-CoV-2 Antigen (Rapid) - Final Nasal Secretion Radiology Impression Renal Ultrasound 07/04/20 07:53 IMPRESSION: Mild atrophy of the right kidney. Mild right hydronephrosis. Moderate left hydronephrosis. Electronically Signed: Michael Cormier MD at 9:31 EDT , Service support ,
[2020-07-04] MEDS: 0.9% Saline Lock 10 ML Syringe IV ×2 (10:40→14:44)
[2020-07-04 11:09] LABS: Urine Sodium 75 mmol/L (Not Establ.)
[2020-07-04] MEDS: Insulin Lispro 100 UNIT/ML INSULN.PEN SC (11:37)
[2020-07-04 11:45] LABS: Bedside Glucose 282 mg/dL (70-110)
--- NOTE | 2020-07-04 13:57 | CON.PCM.RE_ITS ---
Assessment & Plan Assessment/Plan (1) DEISI (acute kidney injury): PLAN: Differential diagnosis includes obstructive uropathy with bilateral hydronephrosis mostly on the left and also possible ATN with sepsis Recent baseline creatinine is in the low 3 range. UA noted but was obtained after straight cath. Urology seeing the patient. If worsening serum creatinine would recommend exchange of stents if okay with ID or percutaneous nephrostomy tubes. Will evaluate dialysis needs on a daily basis. No emergent need for dialysis today start gentle IV fluids. We will try to avoid dialysis catheter until fungemia clears if possible. Discussed with patient and family and Dr. Washburn. (2) Hyponatremia: PLAN: 131 mild monitor (3) Hydronephrosis: QUALIFIERS: Hydronephrosis type: other Qualified Code(s): N13.39 - Other hydronephrosis PLAN: Urology Dr. Hill on board. If worsening serum creatinine would recommend exchange of stents if okay with ID or percutaneous nephrostomy tubes. (4) Candidemia: PLAN: Micafungin repeat blood cultures pending ID on board HPI Consult Data Date of Consult: 07/04/20 HPI Narrative HPI Narrative: ALEA SALGADO, is a 79 M with past medical history as below who presented with fever yesterday temperature 103. He was diagnosed with UTI at this discharged with Levaquin. At home he had again a fever 102.3 with decreased urine output despite self-catheterization's hydration. He had also some nausea vomiting. His most recent baseline is in the low 3 range after discharge in April when he had DEISI with a peak serum creatinine of 6.07. He also had stents bilaterally placed by urology about 6 to 8 weeks ago. His Judd catheter was removed recently and he performs self-catheterization at home. Blood cultures were positive for Zoila. The patient is hard of hearing but has no other complaints denies shortness of breath chest pain headache blurry vision. Denies diarrhea. He states that he had about 3 UTIs in the last few months. He has no other complaints. Denies taking NSAIDs or AMADA inhibitors or ARB. No recent exposure to IV contrast. He has no other complaints. His chronic lower extremity edema left more than right. The review of systems is otherwise negative unless noted in the [facility] Medical History Cancer Cancer of prostate Cancer of rectum Chronic kidney disease Diabetes Kidney disease Home Medications cholecalciferol (vitamin D3) 1,000 unit PO DAILY 12/08/19 [History Last Taken 07/03/20] loperamide 2 mg PO BID 12/08/19 [History Last Taken 07/03/20] hydralazine 50 mg PO BID #60 tablet 05/07/20 [Rx Last Taken 07/03/20] tamsulosin 0.4 mg PO DAILY #30 cap 05/07/20 [Rx Last Taken 07/03/20] acetaminophen 650 mg PO Q6H PRN PRN tablet 05/25/20 [Rx Last Taken 07/03/20] atorvastatin 10 mg PO QHS 07/03/20 [History Last Taken 07/02/20] insulin glargine 10 units SC DAILY 07/03/20 [History Last Taken 07/02/20] levofloxacin 250 mg PO Q48H #3 tab 07/03/20 [Rx Last Taken 07/02/20] Allergy/AdvReac Type Severity Reaction Status Date / Time No Known Allergies Allergy Verified 07/03/20 09:55 Surgical History S/P TURP (status post transurethral resection of prostate) Social History Smoking Status: Former smoker Physical Exam Const alert and no apparent distress General Appearance: comfortable HEENT normocephalic HEENT Narrative: atraumatic Neck General: normal visual inspection and trachea midline Resp normal respiratory effort and clear to auscultation bilaterally Cardio regular rate, regular rhythm, S1 normal heart sound and S2 normal heart sound GI soft to palpation and non-tender Extremity Extremity Narrative: Mild edema left more than right chronic as per patient at baseline Neuro Sensorium / Orientation: awake and alert Lab / Micro Data Result Diagrams: 07/04/20 06:00 07/04/20 06:00 Labs: Laboratory Results - last 24 hr 07/03/20 07/03/20 07/04/20 16:23 23:38 06:00 WBC 6.2 RBC 2.63 L Hgb 7.2 L Hct 23.3 L MCV 88.6 MCH 27.4 MCHC 30.9 L RDW Std Deviation 46.2 H RDW Coeff of Darian 14.3 Plt Count 128 L MPV 9.1 Immature Gran % (Auto) 0.600 Neut % (Auto) 87.2 H Lymph % (Auto) 3.5 L [place] % (Auto) 8.5 Eos % (Auto) 0.0 Baso % (Auto) 0.2 Absolute Neuts (auto) 5.4 Absolute Lymphs (auto) 0.22 L Nucleated RBC % 0 Differential Comment SCANNED Atypical Lymphocytes Hypochromasia 1+ Sodium Potassium Chloride Carbon Dioxide Anion Gap BUN Creatinine Estim Creat Clear Calc Est GFR (MDRD) Af Amer Est GFR (MDRD) Non-Af BUN/Creatinine Ratio Glucose Calcium Ur Random Sodium Urine Creatinine POC Glucose 153 H 124 H 07/04/20 07/04/20 07/04/20 06:00 06:27 10:45 WBC RBC Hgb Hct MCV MCH MCHC RDW Std Deviation RDW Coeff of Darian Plt Count MPV Immature Gran % (Auto) Neut % (Auto) Lymph % (Auto) [place] % (Auto) Eos % (Auto) Baso % (Auto) Absolute Neuts (auto) Absolute Lymphs (auto) Nucleated RBC % Differential Comment Atypical Lymphocytes Hypochromasia Sodium 131 L Potassium 4.9 Chloride 103 Carbon Dioxide 21.0 Anion Gap 7 BUN 49 H Creatinine 5.09 H Estim Creat Clear Calc 11.39 Est GFR (MDRD) Af Amer 14 L Est GFR (MDRD) Non-Af 12 L BUN/Creatinine Ratio 9.6 L Glucose 114 H Calcium 7.9 L Ur Random Sodium 75 Urine Creatinine 29.50 POC Glucose 103 07/04/20 11:36 WBC RBC Hgb Hct MCV MCH MCHC RDW Std Deviation RDW Coeff of Darian Plt Count MPV Immature Gran % (Auto) Neut % (Auto) Lymph % (Auto) [place] % (Auto) Eos % (Auto) Baso % (Auto) Absolute Neuts (auto) Absolute Lymphs (auto) Nucleated RBC % Differential Comment Atypical Lymphocytes Hypochromasia Sodium Potassium Chloride Carbon Dioxide Anion Gap BUN Creatinine Estim Creat Clear Calc Est GFR (MDRD) Af Amer Est GFR (MDRD) Non-Af BUN/Creatinine Ratio Glucose Calcium Ur Random Sodium Urine Creatinine POC Glucose 282 H Micro: Microbiology 07/03/20 12:10 SARS-CoV-2 Antigen (Rapid) - Final Nasal Secretion Radiology Impression Renal Ultrasound 07/04/20 07:53 IMPRESSION: Mild atrophy of the right kidney. Mild right hydronephrosis. Moderate left hydronephrosis. Electronically Signed: Michael Cormier MD at 9:31 EDT , Service support ,
[2020-07-04] MEDS: 0.9% Normal Saline 1,000 ML 100 ML IV (14:44)
--- NOTE | 2020-07-04 15:10 | CON.PCM.UR_ITS ---
Assessment & Plan Assessment/Plan (1) DEISI (acute kidney injury): PLAN: NPO at midnight, plan to taken the surgery tomorrow for cystoscopy dilation and recognition incision of scar tissue in the urethral channel fully placement and also upsize the stents and bilateral stent change. HPI Consult Data Date of Consult: 07/04/20 HPI Narrative HPI Narrative: ALEA SALGADO, is a 79 M who presents Worsening renal function, ultrasound reviewed he does have bilateral hydronephrosis worse on one side in the other side is having difficulty time with catheterization last night he was able to catheterize but just barely. Renal function is fairly poor I agree that intervention is necessary. [facility] Medical History Cancer Cancer of prostate Cancer of rectum Chronic kidney disease Diabetes Kidney disease Home Medications cholecalciferol (vitamin D3) 1,000 unit PO DAILY 12/08/19 [History Last Taken 07/03/20] loperamide 2 mg PO BID 12/08/19 [History Last Taken 07/03/20] hydralazine 50 mg PO BID #60 tablet 05/07/20 [Rx Last Taken 07/03/20] tamsulosin 0.4 mg PO DAILY #30 cap 05/07/20 [Rx Last Taken 07/03/20] acetaminophen 650 mg PO Q6H PRN PRN tablet 05/25/20 [Rx Last Taken 07/03/20] atorvastatin 10 mg PO QHS 07/03/20 [History Last Taken 07/02/20] insulin glargine 10 units SC DAILY 07/03/20 [History Last Taken 07/02/20] levofloxacin 250 mg PO Q48H #3 tab 07/03/20 [Rx Last Taken 07/02/20] Allergy/AdvReac Type Severity Reaction Status Date / Time No Known Allergies Allergy Verified 07/03/20 09:55 Surgical History S/P TURP (status post transurethral resection of prostate) Social History Smoking Status: Former smoker Physical Exam Const alert and oriented x3 General Appearance: cooperative HEENT normocephalic, head/scalp atraumatic, EAC's normal and TM's normal bilaterally Eyes PERRL and EOMs intact bilaterally Pupil: sluggish Neck no lymphadenopathy, supple and no JVD General: trachea midline Lymph Lymphatic: no lymphadenopathy noted, lymphedema and lymphadenopathy Resp normal respiratory effort, normal air movement and clear to auscultation bilaterally Cardio regular rate, regular rhythm and peripheral pulses 2+ throughout GI soft to palpation, non-tender and non-distended Extremity normal capillary refill and no clubbing, cyanosis or edema General Extremity: no tenderness to palpation of joints or extremities Skin no rashes or lesions noted General Skin Exam: turgor normal Lesions: no lesions Rashes: no rashes Neuro CN's II-XII intact bilaterally Speech: speech normal Motor Exam: strength 5/5 throughout; Negative for general weakness Psych thought process normal, cooperative and affect normal Appearance: appropriate Lab / Micro Data Result Diagrams: 07/04/20 06:00 07/04/20 06:00 Labs: Laboratory Results - last 24 hr 07/03/20 07/03/20 07/04/20 16:23 23:38 06:00 WBC 6.2 RBC 2.63 L Hgb 7.2 L Hct 23.3 L MCV 88.6 MCH 27.4 MCHC 30.9 L RDW Std Deviation 46.2 H RDW Coeff of Darian 14.3 Plt Count 128 L MPV 9.1 Immature Gran % (Auto) 0.600 Neut % (Auto) 87.2 H Lymph % (Auto) 3.5 L [place] % (Auto) 8.5 Eos % (Auto) 0.0 Baso % (Auto) 0.2 Absolute Neuts (auto) 5.4 Absolute Lymphs (auto) 0.22 L Nucleated RBC % 0 Differential Comment SCANNED Atypical Lymphocytes Hypochromasia 1+ Sodium Potassium Chloride Carbon Dioxide Anion Gap BUN Creatinine Estim Creat Clear Calc Est GFR (MDRD) Af Amer Est GFR (MDRD) Non-Af BUN/Creatinine Ratio Glucose Calcium Ur Random Sodium Urine Creatinine POC Glucose 153 H 124 H 07/04/20 07/04/20 07/04/20 06:00 06:27 10:45 WBC RBC Hgb Hct MCV MCH MCHC RDW Std Deviation RDW Coeff of Darian Plt Count MPV Immature Gran % (Auto) Neut % (Auto) Lymph % (Auto) [place] % (Auto) Eos % (Auto) Baso % (Auto) Absolute Neuts (auto) Absolute Lymphs (auto) Nucleated RBC % Differential Comment Atypical Lymphocytes Hypochromasia Sodium 131 L Potassium 4.9 Chloride 103 Carbon Dioxide 21.0 Anion Gap 7 BUN 49 H Creatinine 5.09 H Estim Creat Clear Calc 11.39 Est GFR (MDRD) Af Amer 14 L Est GFR (MDRD) Non-Af 12 L BUN/Creatinine Ratio 9.6 L Glucose 114 H Calcium 7.9 L Ur Random Sodium 75 Urine Creatinine 29.50 POC Glucose 103 07/04/20 11:36 WBC RBC Hgb Hct MCV MCH MCHC RDW Std Deviation RDW Coeff of Darian Plt Count MPV Immature Gran % (Auto) Neut % (Auto) Lymph % (Auto) [place] % (Auto) Eos % (Auto) Baso % (Auto) Absolute Neuts (auto) Absolute Lymphs (auto) Nucleated RBC % Differential Comment Atypical Lymphocytes Hypochromasia Sodium Potassium Chloride Carbon Dioxide Anion Gap BUN Creatinine Estim Creat Clear Calc Est GFR (MDRD) Af Amer Est GFR (MDRD) Non-Af BUN/Creatinine Ratio Glucose Calcium Ur Random Sodium Urine Creatinine POC Glucose 282 H Micro: Microbiology 07/03/20 12:10 SARS-CoV-2 Antigen (Rapid) - Final Nasal Secretion Radiology Impression Renal Ultrasound 07/04/20 07:53 IMPRESSION: Mild atrophy of the right kidney. Mild right hydronephrosis. Moderate left hydronephrosis. Electronically Signed: Michael Cormier MD at 9:31 EDT , Service support , Echocardiogram 07/04/20 09:27 Interpretation Summary The estimated ejection fraction is EF 55-60% %. Normal LV systolic function Mild grade # I diastolic Dysfunction Mild MR Mild TR Mild AR Ordering Physician: Eric Mccollum Referring Physician: Srinivas Thayer Performed By: Jillian Damico, TERRY, RVT
[2020-07-04 16:20] LABS: Bedside Glucose 148 mg/dL (70-110)
--- NOTE | 2020-07-04 16:49 | PN.HOSP_ITS ---
Subjective Subjective Difficulty with self-cath last night. Today, feels much better, but still with fevers overnight. Objective Data Objective Data Vital Signs: Vital Signs Temp Pulse Resp BP Pulse Ox 37.4 C H 92 16 126/65 H 96 07/04/20 14:25 07/04/20 14:25 07/04/20 14:25 07/04/20 14:25 07/04/20 14:25 Oxygen Delivery Method Room Air Weight: 73.663 kg Body Mass Index (BMI) 24.7 Intake & Output: Intake and Output for Last 24 Hours 07/02/20 07/03/20 07/04/20 23:59 23:59 23:59 Intake Total 2887.5 / 3007.5 485 / 485 Output Total 300 / 300 200 / 200 Balance 2587.5 / 2707.5 285 / 285 Lab / Micro Data Attestation: I reviewed the patient's lab results. Result Diagrams: 07/04/20 06:00 07/04/20 06:00 Labs: Laboratory Results - last 24 hr 07/03/20 07/04/20 07/04/20 23:38 06:00 06:00 WBC 6.2 RBC 2.63 L Hgb 7.2 L Hct 23.3 L MCV 88.6 MCH 27.4 MCHC 30.9 L RDW Std Deviation 46.2 H RDW Coeff of Darian 14.3 Plt Count 128 L MPV 9.1 Immature Gran % (Auto) 0.600 Neut % (Auto) 87.2 H Lymph % (Auto) 3.5 L [place] % (Auto) 8.5 Eos % (Auto) 0.0 Baso % (Auto) 0.2 Absolute Neuts (auto) 5.4 Absolute Lymphs (auto) 0.22 L Nucleated RBC % 0 Differential Comment SCANNED Atypical Lymphocytes Hypochromasia 1+ Sodium 131 L Potassium 4.9 Chloride 103 Carbon Dioxide 21.0 Anion Gap 7 BUN 49 H Creatinine 5.09 H Estim Creat Clear Calc 11.39 Est GFR (MDRD) Af Amer 14 L Est GFR (MDRD) Non-Af 12 L BUN/Creatinine Ratio 9.6 L Glucose 114 H Calcium 7.9 L Ur Random Sodium Urine Creatinine POC Glucose 124 H 07/04/20 07/04/20 07/04/20 06:27 10:45 11:36 WBC RBC Hgb Hct MCV MCH MCHC RDW Std Deviation RDW Coeff of Darian Plt Count MPV Immature Gran % (Auto) Neut % (Auto) Lymph % (Auto) [place] % (Auto) Eos % (Auto) Baso % (Auto) Absolute Neuts (auto) Absolute Lymphs (auto) Nucleated RBC % Differential Comment Atypical Lymphocytes Hypochromasia Sodium Potassium Chloride Carbon Dioxide Anion Gap BUN Creatinine Estim Creat Clear Calc Est GFR (MDRD) Af Amer Est GFR (MDRD) Non-Af BUN/Creatinine Ratio Glucose Calcium Ur Random Sodium 75 Urine Creatinine 29.50 POC Glucose 103 282 H 07/04/20 16:13 WBC RBC Hgb Hct MCV MCH MCHC RDW Std Deviation RDW Coeff of Darian Plt Count MPV Immature Gran % (Auto) Neut % (Auto) Lymph % (Auto) [place] % (Auto) Eos % (Auto) Baso % (Auto) Absolute Neuts (auto) Absolute Lymphs (auto) Nucleated RBC % Differential Comment Atypical Lymphocytes Hypochromasia Sodium Potassium Chloride Carbon Dioxide Anion Gap BUN Creatinine Estim Creat Clear Calc Est GFR (MDRD) Af Amer Est GFR (MDRD) Non-Af BUN/Creatinine Ratio Glucose Calcium Ur Random Sodium Urine Creatinine POC Glucose 148 H Micro: Microbiology 07/03/20 12:10 Nasal Secretion SARS-CoV-2 Antigen (Rapid) - Final Radiography Diagnostic Testing: Radiology Impression Renal Ultrasound 07/04/20 07:53 IMPRESSION: Mild atrophy of the right kidney. Mild right hydronephrosis. Moderate left hydronephrosis. Electronically Signed: Michael Cormier MD at 9:31 EDT , Service support , Echocardiogram 07/04/20 09:27 Interpretation Summary The estimated ejection fraction is EF 55-60% %. Normal LV systolic function Mild grade # I diastolic Dysfunction Mild MR Mild TR Mild AR Ordering Physician: Eric Mccollum Referring Physician: Srinivas Thayer Performed By: Jillian Damico, TERRY, RVT Physical Exam Const alert General Appearance: cooperative HEENT normocephalic and moist oral mucous membranes Resp normal respiratory effort and clear to auscultation bilaterally Cardio regular rate, regular rhythm, S1 normal heart sound and S2 normal heart sound GI normal to inspection, nondistended, normoactive bowel sounds, non-tender and non-distended Neuro oriented x3 Sensorium / Orientation: alert Psych affect normal Assessment & Plan Assessment/Plan (1) Abnormal urinalysis: (2) Debility: (3) Decreased urine output: PLAN: 1. Candidemia * ID consult, who suspects source * started on micafungin * 1st BCx on 07/03 positive, repeat Cx pending 2. DEISI * nephrology suspects obstructive * to take patient to cysto on 07/05 3. Anemia * monitor * check iron studies * transfuse for Hg < 7 4. abnormal UA * only slightly elevated WBC * already received LVQ in ED * monitor for now * UCx so far negative 5. sepsis * POA * maybe 2/2 candidemia * COVID-19 negative (has been vaccinated) * Follow up BCx, UCx 6. Decreased urine outpt * check bladder scan * may be obstructive 7. Debility * PT OT 8. VTE prophylaxis: LMWH 9. ACP: sarahi pt. DNRCCA, DNI Family requested to speak with me. Dtr received a phone call during encounter, then took the call. Visit Charges Inpatient E&M: 57241 Subs Hosp L2
[2020-07-04] MEDS: Atorvastatin Calcium 10 MG Tablet PO (20:36)
[2020-07-05] VITALS (21 sets, daily range): BP systolic 121–154; BP diastolic 51–77; PULSE 82–102; RESP 16–18; TEMP 36.4–38.1; O2SAT 95–98; BMI 24.5
[2020-07-05] MEDS: 0.9% Normal Saline 1,000 ML 100 ML IV (00:48)
[2020-07-05] MEDS: Acetaminophen 325 MG Tablet 650 MG PO (03:43)
--- NOTE | 2020-07-05 05:55 | EKG12_ITS ---
Test Reason : AM EKG Blood Pressure : / mmHG Vent. Rate : 087 BPM Atrial Rate : 087 BPM P-R Int : 160 ms QRS Dur : 094 ms QT Int : 364 ms P-R-T Axes : 052 -06 037 degrees QTc Int : 438 ms Normal sinus rhythm Normal ECG Confirmed by TWYLA MICHELLE, SOCRATES ([id number]), image editor TIM BOSE ([id number]) on 07/08/2020 2:57:40 PM Referred By: RICA Confirmed By:SOCRATES WAKEFIELD MD
[2020-07-05 06:41] LABS: Absolute Lymphocyte Count 0.24 X10^3/uL (0.83-4.51); Absolute Neutrophil Count 4.2 X10^3/uL (2.0-7.7); Basophil# 0.01 X10^3/uL; Basophil% 0.2 % (0-1); Hematocrit 22.1 % (40-54); Hemoglobin 6.9 g/dL (13.0-16.5); Lymphocyte # 0.24 X10^3/ul (0.83-4.51); Lymphocyte % 4.9 % (19-41); Mean Corp Hgb Conc 31.2 g/dL (32-36); Mean Corpuscular Hgb 26.7 pg (27.0-32.0); Mean Corpuscular Volume 85.7 fL (80-94); Mean Platelet Vol. 8.7 fl (6.2-12.0); Monocyte# 0.51 X10^3/uL; Monocyte% 10.3 % (0-10); NRBC Flagged by Analyzer 0 % (0-5); Neutrophil # 4.16 X10^3/uL (2.7-7.7); Neutrophil % 84.2 % (47-70); POSITIVE DIFFERENTIAL YES; Platelet Count 118 K/mm3 (150-450); RBC Distribution Width CV 14.3 % (11.6-14.6); RBC Distribution Width SD 44.9 fl (35.1-43.9); Red Blood Count 2.58 M/mm3 (4.6-6.2); White Blood Count 4.9 K/mm3 (4.4-11.0)
[2020-07-05 06:45] LABS: Differential Indicated SCAN CRITERIA MET
[2020-07-05 06:51] LABS: International Normalized Ratio 1.3
[2020-07-05 06:52] LABS: Partial Thromboplast Time 38.3 Seconds (24.1-36.2)
[2020-07-05 07:10] LABS: Anion Gap 7 (5-15); BUN 64 mg/dL (7-18); BUN/Creat Ratio 9.9 RATIO (10-20); Chloride 104 mmol/L (98-107); Creatinine, Serum 6.46 mg/dL (0.70-1.30); EST Glomerular Filtration Rate 9 mL/min (>60); Est Glom Filt Rate - Afr Amer 11 mL/min (>60); Estimated Creatinine Clearance 8.97 ml/min; Ferritin 1233 ng/mL (26-388); Glucose 110 mg/dL (74-106); Iron 9 ug/dL (65-175); Iron Binding Capacity,Total 186 ug/dL (250-450); PERCENT IRON SATURATION 4.8 % (15.0-55.0); Potassium 5.3 mmol/L (3.5-5.1); Sodium Level 131 mmol/L (136-145)
[2020-07-05 07:25] LABS: Bedside Glucose 107 mg/dL (70-110)
[2020-07-05 07:29] LABS: Differential Comment SCANNED
[2020-07-05] MEDS: Tamsulosin HCl 0.4 MG Capsule PO (08:25)
[2020-07-05] MEDS: hydrALAZINE 50 MG Tablet PO ×2 (08:25→22:35)
[2020-07-05 08:44] LABS: Hemoglobin A1c 7.6 % (3.8-5.6)
--- NOTE | 2020-07-05 09:35 | PN.RENAL_ITS ---
Subjective Subjective No nausea No vomiting. No worsening breathing. Objective Data Objective Data Vital Signs: Vital Signs Temp Pulse Resp BP Pulse Ox 98.5 F 86 18 132/63 H 96 07/05/20 08:29 07/05/20 08:29 07/05/20 08:29 07/05/20 08:29 07/05/20 08:29 Oxygen Delivery Method Room Air Weight: 73.663 kg Body Mass Index (BMI) 24.7 Intake & Output: Intake and Output for Last 24 Hours 07/03/20 07/04/20 07/05/20 23:59 23:59 23:59 Intake Total 2887.5 / 3007.5 685 / 685 1050 / 1050 Output Total 300 / 300 300 / 300 100 / 100 Balance 2587.5 / 2707.5 385 / 385 950 / 950 Lab / Micro Data Result Diagrams: 07/05/20 06:30 07/05/20 06:30 Labs: Laboratory Results - last 24 hr 07/04/20 07/04/20 07/04/20 10:45 11:36 16:13 WBC RBC Hgb Hct MCV MCH MCHC RDW Std Deviation RDW Coeff of Darian Plt Count MPV Immature Gran % (Auto) Neut % (Auto) Lymph % (Auto) [place] % (Auto) Eos % (Auto) Baso % (Auto) Absolute Neuts (auto) Absolute Lymphs (auto) Nucleated RBC % Differential Comment PT INR APTT Sodium Potassium Chloride Carbon Dioxide Anion Gap BUN Creatinine Estim Creat Clear Calc Est GFR (MDRD) Af Amer Est GFR (MDRD) Non-Af BUN/Creatinine Ratio Glucose Hemoglobin A1c Calcium Iron TIBC Iron Saturation Ferritin Ur Random Sodium 75 Urine Creatinine 29.50 POC Glucose 282 H 148 H Crossmatch 07/05/20 07/05/20 07/05/20 06:30 06:30 06:30 WBC 4.9 RBC 2.58 L Hgb 6.9 L Hct 22.1 L MCV 85.7 MCH 26.7 L MCHC 31.2 L RDW Std Deviation 44.9 H RDW Coeff of Darian 14.3 Plt Count 118 L MPV 8.7 Immature Gran % (Auto) 0.400 Neut % (Auto) 84.2 H Lymph % (Auto) 4.9 L [place] % (Auto) 10.3 H Eos % (Auto) 0.0 Baso % (Auto) 0.2 Absolute Neuts (auto) 4.2 Absolute Lymphs (auto) 0.24 L Nucleated RBC % 0 Differential Comment SCANNED PT 15.0 H INR 1.3 APTT 38.3 H Sodium 131 L Potassium 5.3 H Chloride 104 Carbon Dioxide 20.0 L Anion Gap 7 BUN 64 H Creatinine 6.46 H Estim Creat Clear Calc 8.97 Est GFR (MDRD) Af Amer 11 L Est GFR (MDRD) Non-Af 9 L BUN/Creatinine Ratio 9.9 L Glucose 110 H Hemoglobin A1c Calcium 8.0 L Iron 9 L TIBC 186 L Iron Saturation 4.8 L Ferritin 1233 H Ur Random Sodium Urine Creatinine POC Glucose Crossmatch 07/05/20 07/05/20 07/05/20 06:30 07:12 08:20 WBC RBC Hgb Hct MCV MCH MCHC RDW Std Deviation RDW Coeff of Darian Plt Count MPV Immature Gran % (Auto) Neut % (Auto) Lymph % (Auto) [place] % (Auto) Eos % (Auto) Baso % (Auto) Absolute Neuts (auto) Absolute Lymphs (auto) Nucleated RBC % Differential Comment PT INR APTT Sodium Potassium Chloride Carbon Dioxide Anion Gap BUN Creatinine Estim Creat Clear Calc Est GFR (MDRD) Af Amer Est GFR (MDRD) Non-Af BUN/Creatinine Ratio Glucose Hemoglobin A1c 7.6 H Calcium Iron TIBC Iron Saturation Ferritin Ur Random Sodium Urine Creatinine POC Glucose 107 Crossmatch See Detail Micro: Microbiology 07/03/20 10:32 Blood Culture (Wb) - Left Forearm Blood Culture - Preliminary 07/03/20 12:10 Nasal Secretion SARS-CoV-2 Antigen (Rapid) - Final Radiography Diagnostic Testing: Radiology Impression Echocardiogram 07/04/20 09:27 Interpretation Summary The estimated ejection fraction is EF 55-60% %. Normal LV systolic function Mild grade # I diastolic Dysfunction Mild MR Mild TR Mild AR Ordering Physician: Eric Mccollum Referring Physician: Srinivas Thayer Performed By: Jillian Damico, TERRY, RVT Physical Exam Const alert and oriented x3 General Appearance: cooperative HEENT normocephalic Head and Scalp: normocephalic and atraumatic Nose: external nose normal Eyes PERRL Neck full ROM and no lymphadenopathy General: normal visual inspection and trachea midline Resp normal respiratory effort and clear to auscultation bilaterally Auscultation: clear to auscultation bilaterally Cardio regular rate, regular rhythm, S1 normal heart sound and S2 normal heart sound GI soft to palpation and non-tender Auscultation: normoactive bowel sounds Palpation: soft Extremity Extremity Narrative: Mild edema left more than right chronic as per patient at baseline Skin General Skin Exam: no breakdown Neuro oriented x3 and CN's II-XII intact bilaterally Sensorium / Orientation: awake and alert Psych Appearance: grossly normal and appropriate Assessment & Plan Assessment/Plan (1) DEISI (acute kidney injury): PLAN: Differential diagnosis includes obstructive uropathy with bilateral hydronephrosis mostly on the left and also possible ATN with sepsis Recent baseline creatinine is in the low 3 range. UA noted but was obtained after straight cath. Urology seeing the patient.Cr is up to > 6mg/dl. renal US showed mild R hydro and moderate L hydro Urology is taking the patient to OR today for cystoscopy and B/L ureters stent exchange and urethral scar incision No need for urgent HD. If kidney function continue to worsens tomorrow then he needs HD . (2) Hyponatremia: PLAN: 131 mild monitor (3) Hydronephrosis: QUALIFIERS: Hydronephrosis type: other Qualified Code(s): N13.39 - Other hydronephrosis PLAN: Urology Dr. Hill on board. Please see the above plan (4) Candidemia: PLAN: Micafungin repeat blood cultures pending ID on board (5) Hyperkalemia: PLAN: K is slightly elevated. hope will improve with better kidney function (6) Edema: PLAN: Patient has peripheral edema. will hold on diuretic for now. might improve with better kidney function after stents exchange
--- NOTE | 2020-07-05 09:45 | CASEMGMT ---
GOPAL ANDERSON Assessment: Face to Face with pt for initial transition planning/care coordination assessment. GOPAL ANDERSON introduced self and role at [facility], pt voices understanding and consents to assessment. Pt is A/O x4 and answers all questions appropriately at this time. Pt takes some time before answering questions. Pt lying in bed in no distress. Care providers, pharmacy, and demographics verified/updated. Admitting Dx: fever PCP: Jeovany Specialists: Pt states he only sees a neprhologist and is unaware of his name. [facility] Prescription Benefit: yes LW/HPOA: Pt states he has a LW/DPOA and his DPOA is his , Terri. Pt is aware that it is not on file at [facility] and is able to bring in at any time to be scanned in to the chart. LNOK: Terri Means, Living Arrangements: Pt lives with in a two story house with 4 steps to enter with rail. Pt reports he is I in ADL's but he is weak right now. Pt denies concerns at home. Transportation: Pt states he does not drive at this time. His transports him to medical appts. Denies concerns with transportation. DME/HHC/SNF: Pt has a walker, cane, shower chair and grab bars at home. Pt has had [facility] HHS in the past and denies any SNF stays. Pt states no concerns with going home at time of dc. Pt states no further concerns/needs. CM to follow therapy. Advised pt to ask CM if any further question/concerns/needs arise, voices understanding. Pt Goal: Home Plan: Home
[2020-07-05 12:01] LABS: Bedside Glucose 126 mg/dL (70-110)
--- NOTE | 2020-07-05 12:09 | NURSING ---
pt off unit to AC
[2020-07-05] MEDS: Lactated Ringers 1,000 ML 100 ML IV ×2 (12:28→22:36)
--- NOTE | 2020-07-05 13:12 | PCM.PN.ID ---
ID ID: Route of nutrition/ use of supplements: [] Nutritional Intake: [] IV Site: [] Judd Catheter: [] Assessment & Plan Assessment/Plan (1) Sepsis: (2) Candidemia: PLAN: Presented with sepsis, decreased UOP, does straight cath at home. Fully vaccinated for covid. 2 of 2 bcx with yeast on gram stain. Suspect urinary source, no central lines in place. Ucx also with possible enterococcus and GNR x2. Will add zosyn. Cont micafungin. No veg seen on TTE. Will repeat bcx today and tomorrow. Will need SHANNAN. Will follow. Pt currently gone to OR. (3) Stage 3a chronic kidney disease:
--- NOTE | 2020-07-05 13:20 | PN.HOSP_ITS ---
Subjective Subjective swelling in legs more uncomfortable. Chronically, left leg tends to swell more than right. Objective Data Objective Data Vital Signs: Vital Signs Temp Pulse Resp BP Pulse Ox 37.7 C H 92 16 134/56 H 97 07/05/20 12:48 07/05/20 12:48 07/05/20 12:48 07/05/20 12:48 07/05/20 12:48 Oxygen Delivery Method Room Air Weight: 73.6 kg Body Mass Index (BMI) 24.5 Intake & Output: Intake and Output for Last 24 Hours 07/03/20 07/04/20 07/05/20 23:59 23:59 23:59 Intake Total 2887.5 / 3007.5 685 / 685 2155 / 2155 Output Total 300 / 300 300 / 300 100 / 100 Balance 2587.5 / 2707.5 385 / 385 2054 / 2054 Lab / Micro Data Result Diagrams: 07/05/20 06:30 07/05/20 06:30 Labs: Laboratory Results - last 24 hr 07/04/20 07/05/20 07/05/20 16:13 06:30 06:30 WBC 4.9 RBC 2.58 L Hgb 6.9 L Hct 22.1 L MCV 85.7 MCH 26.7 L MCHC 31.2 L RDW Std Deviation 44.9 H RDW Coeff of Darian 14.3 Plt Count 118 L MPV 8.7 Immature Gran % (Auto) 0.400 Neut % (Auto) 84.2 H Lymph % (Auto) 4.9 L [place] % (Auto) 10.3 H Eos % (Auto) 0.0 Baso % (Auto) 0.2 Absolute Neuts (auto) 4.2 Absolute Lymphs (auto) 0.24 L Nucleated RBC % 0 Differential Comment SCANNED PT INR APTT Sodium 131 L Potassium 5.3 H Chloride 104 Carbon Dioxide 20.0 L Anion Gap 7 BUN 64 H Creatinine 6.46 H Estim Creat Clear Calc 8.97 Est GFR (MDRD) Af Amer 11 L Est GFR (MDRD) Non-Af 9 L BUN/Creatinine Ratio 9.9 L Glucose 110 H Hemoglobin A1c Calcium 8.0 L Iron 9 L TIBC 186 L Iron Saturation 4.8 L Ferritin 1233 H POC Glucose 148 H Blood Type Antibody Screen Crossmatch 07/05/20 07/05/2007/05/21 06:30 06:30 07:12 WBC RBC Hgb Hct MCV MCH MCHC RDW Std Deviation RDW Coeff of Darian Plt Count MPV Immature Gran % (Auto) Neut % (Auto) Lymph % (Auto) [place] % (Auto) Eos % (Auto) Baso % (Auto) Absolute Neuts (auto) Absolute Lymphs (auto) Nucleated RBC % Differential Comment PT 15.0 H INR 1.3 APTT 38.3 H Sodium Potassium Chloride Carbon Dioxide Anion Gap BUN Creatinine Estim Creat Clear Calc Est GFR (MDRD) Af Amer Est GFR (MDRD) Non-Af BUN/Creatinine Ratio Glucose Hemoglobin A1c 7.6 H Calcium Iron TIBC Iron Saturation Ferritin POC Glucose 107 Blood Type Antibody Screen Crossmatch 07/05/20 07/05/20 08:20 11:27 WBC RBC Hgb Hct MCV MCH MCHC RDW Std Deviation RDW Coeff of Darian Plt Count MPV Immature Gran % (Auto) Neut % (Auto) Lymph % (Auto) [place] % (Auto) Eos % (Auto) Baso % (Auto) Absolute Neuts (auto) Absolute Lymphs (auto) Nucleated RBC % Differential Comment PT INR APTT Sodium Potassium Chloride Carbon Dioxide Anion Gap BUN Creatinine Estim Creat Clear Calc Est GFR (MDRD) Af Amer Est GFR (MDRD) Non-Af BUN/Creatinine Ratio Glucose Hemoglobin A1c Calcium Iron TIBC Iron Saturation Ferritin POC Glucose 126 H Blood Type O POSITIVE Antibody Screen NEGATIVE Crossmatch See Detail Micro: Microbiology 07/03/20 10:40 Blood Culture (Wb) - Left Hand Blood Culture - Preliminary No growth in 48 hours. 07/03/20 10:32 Blood Culture (Wb) - Left Forearm Blood Culture - Preliminary 07/03/20 12:10 Nasal Secretion SARS-CoV-2 Antigen (Rapid) - Final Radiography Diagnostic Testing: Radiology Impression Echocardiogram 07/04/20 09:27 Interpretation Summary The estimated ejection fraction is EF 55-60% %. Normal LV systolic function Mild grade # I diastolic Dysfunction Mild MR Mild TR Mild AR Ordering Physician: Eric Mccollum Referring Physician: Srinivas Thayer Performed By: Jillian Damico, RDCS, RVT Physical Exam Const alert Exam Limitations: no limitations Eyes PERRL Resp normal respiratory effort and clear to auscultation bilaterally Cardio regular rate, regular rhythm, S1 normal heart sound and S2 normal heart sound GI normal to inspection, nondistended, normoactive bowel sounds Assessment & Plan Assessment/Plan (1) Abnormal urinalysis: (2) Debility: (3) Decreased urine output: PLAN: 1. Candidemia * ID consult, who suspects source * started on micafungin * 1st BCx on 07/03 positive /4 * repeat BCx * SHANNAN 2. DEISI * nephrology suspects obstructive * to take patient to cysto on 07/05 * DW nephrology. No HD yet. If needs HD, will need temporary catheter given candidemia 3. Anemia * monitor * check iron studies * transfuse 1 unit 4. CAUTI (self-cath) * UCx showing multiple organisms (poss Enterococcus, GNRx2) * on pip/tazo 5. sepsis * POA * 2/2 candidemia +/- UTI * COVID-19 negative (has been vaccinated) 6. Decreased urine outpt * check bladder scan * may be obstructive 7. Debility * PT OT 8. VTE prophylaxis: LMWH 9. ACP: dw pt. DNRCCA, DNI DW family at bedside Greater than 35 minutes of which greater than 50% of time was discussing with the patient and his family about the candidemia, renal failure. Visit Charges Inpatient E&M: 23039 Subs Hosp L3
--- NOTE | 2020-07-05 14:42 | PCM.OPRPT ---
Report of Operation Date of Procedure: 07/05/20 Pre-Operative Diagnosis: Bilateral ureteral obstruction history of prostate cancer, urethral stricture Post-Operative Diagnosis: Same Surgery/Procedure Performed:: Cystoscopy, dilation of urethral stricture, left retrograde pyelogram and left stent change, right retrograde and right stent change Description of Surgical Findings:: 79-year-old male with history of advanced prostate cancer is being treated, presented to hospital with acute renal failure he had a stents placed bilaterally and some mild bilateral hydronephrosis so we can proceed with placement of new stents hopefully this will improve his renal function also plan to place a catheter he has a 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 Patient was taken back to the operating room at the smooth induction of general anesthesia he was placed supine on the table, went into the bladder with a 21 Haitian rigid cystourethroscope the entire length the urethra was okay but once again to the sphincter it was super tight made the turn at these little bit of force to get through the really tight sphincter area very tight, I then got into the bladder and grabbed the existing right stent grabbed the end of the stent pulled out the meatus put a wire up to the stent and then the wire coiled in the kidney performed a retrograde pyelogram to see the contrast up in the kidney and dilation hydronephrosis of the right kidney. And over the right kidney I advanced a 7 Haitian by 28 cm stent stent coiled in the kidney bladder good position and then I went to the other side grabbed the existing stent on the left side pulled out the meatus put a wire through over the wire coiled in the bladder did not go up the ureter so the go back in the bladder the ureteral orifice first fortunately and advance a wire up into the left kidney performed a retrograde pyelogram the left side and then placed a new 7 Haitian by 28 cm stent the left side so we did upsize the stents. Then first try to place a catheter back in the bladder but so tight especially in the prostatic urethra I did dilate this with the sounds using a 2418 and 24 sounds and then put a wire into the bladder and then over the wire I placed the catheter over the wire quite difficult to get the catheter and there was a catheter was in place then I pulled the wire and pulled the balloon with 10 cc did not cystogram to confirm I was in the bladder and then put the catheter to drainage to large bag. Patient was then taken back to PACU in good condition he will to leave the catheter in for now we will see if his kidney function hopefully improves. He will need of the stent change in a few months we will leave the catheter in for now and then he can resume self intermittent catheterization and in a few weeks. Surgeon: riley Type of Anesthesia: General Drains: akers, new stents left and right Admit VTE Documentation VTE Present on Admission: No VTE Mechan Device Prophylaxis: SCD's
[2020-07-05 15:21] LABS: Bedside Glucose 96 mg/dL (70-110)
[2020-07-05 16:30] LABS: Bedside Glucose 104 mg/dL (70-110)
[2020-07-05] MEDS: Atorvastatin Calcium 10 MG Tablet PO (22:35)
[2020-07-06 02:45] VITALS: BP 118/51; PULSE 92; RESP 16; TEMP 36.9; O2SAT 97
[2020-07-06 06:30] LABS: Bedside Glucose 145 mg/dL (70-110)
[2020-07-06 07:14] LABS: Absolute Lymphocyte Count 0.34 X10^3/uL (0.83-4.51); Absolute Neutrophil Count 3.6 X10^3/uL (2.0-7.7); Basophil# 0.01 X10^3/uL; Basophil% 0.2 % (0-1); Eosinophil# 0.01 X10^3/uL; Eosinophils% 0.2 % (0-5); Hematocrit 26.1 % (40-54); Hemoglobin 8.3 g/dL (13.0-16.5); Lymphocyte # 0.34 X10^3/ul (0.83-4.51); Lymphocyte % 7.3 % (19-41); Mean Corp Hgb Conc 31.8 g/dL (32-36); Mean Corpuscular Hgb 27.6 pg (27.0-32.0); Mean Corpuscular Volume 86.7 fL (80-94); Mean Platelet Vol. 9.2 fl (6.2-12.0); Monocyte# 0.67 X10^3/uL; Monocyte% 14.5 % (0-10); NRBC Flagged by Analyzer 0 % (0-5); Neutrophil # 3.57 X10^3/uL (2.7-7.7); Neutrophil % 77.2 % (47-70); POSITIVE DIFFERENTIAL YES; Platelet Count 155 K/mm3 (150-450); RBC Distribution Width CV 14.6 % (11.6-14.6); RBC Distribution Width SD 46.5 fl (35.1-43.9); Red Blood Count 3.01 M/mm3 (4.6-6.2); White Blood Count 4.6 K/mm3 (4.4-11.0)
[2020-07-06 07:28] LABS: Differential Indicated SCAN CRITERIA MET
[2020-07-06 07:33] LABS: Differential Comment SCANNED
[2020-07-06 07:43] LABS: Anion Gap 10 (5-15); BUN 67 mg/dL (7-18); BUN/Creat Ratio 10.4 RATIO (10-20); Calcium,Total 8.1 mg/dL (8.5-10.1); Chloride 105 mmol/L (98-107); Creatinine, Serum 6.43 mg/dL (0.70-1.30); EST Glomerular Filtration Rate 9 mL/min (>60); Est Glom Filt Rate - Afr Amer 11 mL/min (>60); Estimated Creatinine Clearance 9.01 ml/min; Glucose 146 mg/dL (74-106); Potassium 4.8 mmol/L (3.5-5.1); Sodium Level 134 mmol/L (136-145)
[2020-07-06 08:28] LABS: International Normalized Ratio 1.2; Prothrombin Time (Protime)PT. 14.8 SECONDS (11.7-14.9)
--- NOTE | 2020-07-06 08:30 | PCM.PN.BLA ---
Progress Note s/p placement of new b/l stents 7 fr - larger stents and akers. Cr still high urine output adequate. Physical Exam Const alert and oriented x3 General Appearance: cooperative HEENT normocephalic, head/scalp atraumatic, EAC's normal and TM's normal bilaterally Eyes PERRL and EOMs intact bilaterally Pupil: sluggish Neck no lymphadenopathy, supple and no JVD General: trachea midline Lymph Lymphatic: no lymphadenopathy noted, lymphedema and lymphadenopathy Resp normal respiratory effort, normal air movement and clear to auscultation bilaterally Cardio regular rate, regular rhythm and peripheral pulses 2+ throughout GI soft to palpation, non-tender and non-distended Extremity normal capillary refill and no clubbing, cyanosis or edema General Extremity: no tenderness to palpation of joints or extremities Skin no rashes or lesions noted General Skin Exam: turgor normal Lesions: no lesions Rashes: no rashes Neuro CN's II-XII intact bilaterally Speech: speech normal Motor Exam: strength 5/5 throughout; Negative for general weakness Psych thought process normal, cooperative and affect normal Appearance: appropriate Assessment & Plan Assessment/Plan (1) Cancer of prostate: PLAN: monitor cr, hopefully will improve?
[2020-07-06 09:00] VITALS: BP 126/53; PULSE 86; RESP 16; TEMP 36.9; O2SAT 96
[2020-07-06 09:38] VITALS: PULSE 86
[2020-07-06] MEDS: Tamsulosin HCl 0.4 MG Capsule PO (09:38)
[2020-07-06] MEDS: hydrALAZINE 50 MG Tablet PO ×2 (09:38→21:40)
[2020-07-06] MEDS: Insulin Lispro 100 UNIT/ML INSULN.PEN SC ×2 (11:23→17:02)
[2020-07-06 11:50] LABS: Bedside Glucose 281 mg/dL (70-110)
[2020-07-06] MEDS: Lactated Ringers 1,000 ML 100 ML IV ×2 (12:33→21:40)
--- NOTE | 2020-07-06 14:36 | PN.HOSP_ITS ---
Subjective Subjective Feels well. No new complaints. Tolerated procedure well. Objective Data Objective Data Vital Signs: Vital Signs Temp Pulse Resp BP Pulse Ox 36.9 C 86 16 126/53 H 96 07/06/20 09:00 07/06/20 09:38 07/06/20 09:00 07/06/20 09:00 07/06/20 09:00 Oxygen Delivery Method Room Air Weight: 73.6 kg Body Mass Index (BMI) 24.5 Intake & Output: Intake and Output for Last 24 Hours 07/04/20 07/05/20 07/06/20 23:59 23:59 23:59 Intake Total 685 / 685 3995 / 4395 1601.67 / 1601.67 Output Total 300 / 300 800 / 800 1700 / 1700 Balance 385 / 385 3195 / 3595 -98.33 / -98.33 Lab / Micro Data Attestation: I reviewed the patient's lab results. Result Diagrams: 07/06/20 06:40 07/06/20 06:40 Labs: Laboratory Results - last 24 hr 07/05/20 07/05/20 07/06/20 15:14 16:27 06:24 WBC RBC Hgb Hct MCV MCH MCHC RDW Std Deviation RDW Coeff of Darian Plt Count MPV Immature Gran % (Auto) Neut % (Auto) Lymph % (Auto) [place] % (Auto) Eos % (Auto) Baso % (Auto) Absolute Neuts (auto) Absolute Lymphs (auto) Nucleated RBC % Differential Comment PT INR Sodium Potassium Chloride Carbon Dioxide Anion Gap BUN Creatinine Estim Creat Clear Calc Est GFR (MDRD) Af Amer Est GFR (MDRD) Non-Af BUN/Creatinine Ratio Glucose Calcium POC Glucose 96 104 145 H 07/06/20 07/06/20 07/06/20 06:40 06:40 06:40 WBC 4.6 RBC 3.01 L Hgb 8.3 L Hct 26.1 L MCV 86.7 MCH 27.6 MCHC 31.8 L RDW Std Deviation 46.5 H RDW Coeff of Darian 14.6 Plt Count 155 MPV 9.2 Immature Gran % (Auto) 0.600 Neut % (Auto) 77.2 H Lymph % (Auto) 7.3 L [place] % (Auto) 14.5 H Eos % (Auto) 0.2 Baso % (Auto) 0.2 Absolute Neuts (auto) 3.6 Absolute Lymphs (auto) 0.34 L Nucleated RBC % 0 Differential Comment SCANNED PT 14.8 INR 1.2 Sodium 134 L Potassium 4.8 Chloride 105 Carbon Dioxide 19.0 L Anion Gap 10 BUN 67 H Creatinine 6.43 H Estim Creat Clear Calc 9.01 Est GFR (MDRD) Af Amer 11 L Est GFR (MDRD) Non-Af 9 L BUN/Creatinine Ratio 10.4 Glucose 146 H Calcium 8.1 L POC Glucose 07/06/20 11:22 WBC RBC Hgb Hct MCV MCH MCHC RDW Std Deviation RDW Coeff of Darian Plt Count MPV Immature Gran % (Auto) Neut % (Auto) Lymph % (Auto) [place] % (Auto) Eos % (Auto) Baso % (Auto) Absolute Neuts (auto) Absolute Lymphs (auto) Nucleated RBC % Differential Comment PT INR Sodium Potassium Chloride Carbon Dioxide Anion Gap BUN Creatinine Estim Creat Clear Calc Est GFR (MDRD) Af Amer Est GFR (MDRD) Non-Af BUN/Creatinine Ratio Glucose Calcium POC Glucose 281 H Micro: Microbiology 07/03/20 10:32 Blood Culture (Wb) - Left Forearm Blood Culture - Preliminary Yeast, not Zoila albicans 07/03/20 10:40 Blood Culture (Wb) - Left Hand Blood Culture - Preliminary No growth in 48 hours. 07/03/20 12:10 Nasal Secretion SARS-CoV-2 Antigen (Rapid) - Final Physical Exam Const alert and oriented x3 Exam Limitations: no limitations Eyes PERRL Resp normal respiratory effort and clear to auscultation bilaterally Cardio regular rate, regular rhythm, S1 normal heart sound and S2 normal heart sound GI normal to inspection, nondistended, normoactive bowel sounds, non-tender and non-distended Extremity normal to inspection Neuro Sensorium / Orientation: awake and alert Assessment & Plan Assessment/Plan (1) Abnormal urinalysis: (2) Debility: (3) Decreased urine output: PLAN: 1. Candidemia * ID consult, who suspects source * started on micafungin * 1st BCx on 07/03 positive 04/25 * repeat BCx * SHANNAN 2. DEISI * nephrology suspects obstructive * Status post cysto on 07/05 * DW nephrology. Given increased improved urine output and stable creatinine, hold off on hemodialysis at this time. 3. Anemia * Improved after 1 unit monitor * Iron low at 9 but ferritin elevated at 1233. * Start ferrous sulfate 4. CAUTI (self-cath) * UCx showing multiple organisms (poss Enterococcus, GNRx2) * on pip/tazo 5. sepsis * POA * 2/2 candidemia +/- UTI * COVID-19 negative (has been vaccinated) 6. Decreased urine outpt * check bladder scan * Resolved 7. Debility * PT OT 8. VTE prophylaxis: LMWH 9. ACP: dw pt. DNRCCA, DNI ARIAS family at bedside Visit Charges Inpatient E&M: 22731 Subs Hosp L2
[2020-07-06 15:00] VITALS: BP 132/59; PULSE 91; RESP 16; TEMP 37; O2SAT 97
[2020-07-06 17:15] LABS: Bedside Glucose 153 mg/dL (70-110)
--- NOTE | 2020-07-06 18:15 | PN.RENAL_ITS ---
Subjective Subjective denied worsening breathing. has akers cath which is drainign yellow urine No N/V/CP Objective Data Objective Data Vital Signs: Vital Signs Temp Pulse Resp BP Pulse Ox 98.6 F 91 16 132/59 H 97 07/06/20 15:00 07/06/20 15:00 07/06/20 15:00 07/06/20 15:00 07/06/20 15:00 Oxygen Delivery Method Room Air Weight: 73.6 kg Body Mass Index (BMI) 24.5 Intake & Output: Intake and Output for Last 24 Hours 07/04/20 07/05/20 07/06/20 23:59 23:59 23:59 Intake Total 685 / 685 3995 / 4395 2356.67 / 2356.67 Output Total 300 / 300 800 / 800 2900 / 2900 Balance 385 / 385 3195 / 3595 -543.33 / -543.33 Lab / Micro Data Result Diagrams: 07/06/20 06:40 07/06/20 06:40 Labs: Laboratory Results - last 24 hr 07/06/20 07/06/20 07/06/20 06:24 06:40 06:40 WBC 4.6 RBC 3.01 L Hgb 8.3 L Hct 26.1 L MCV 86.7 MCH 27.6 MCHC 31.8 L RDW Std Deviation 46.5 H RDW Coeff of Darian 14.6 Plt Count 155 MPV 9.2 Immature Gran % (Auto) 0.600 Neut % (Auto) 77.2 H Lymph % (Auto) 7.3 L [place] % (Auto) 14.5 H Eos % (Auto) 0.2 Baso % (Auto) 0.2 Absolute Neuts (auto) 3.6 Absolute Lymphs (auto) 0.34 L Nucleated RBC % 0 Differential Comment SCANNED PT 14.8 INR 1.2 Sodium Potassium Chloride Carbon Dioxide Anion Gap BUN Creatinine Estim Creat Clear Calc Est GFR (MDRD) Af Amer Est GFR (MDRD) Non-Af BUN/Creatinine Ratio Glucose Calcium POC Glucose 145 H 07/06/20 07/06/20 07/06/20 06:40 11:22 17:01 WBC RBC Hgb Hct MCV MCH MCHC RDW Std Deviation RDW Coeff of Darian Plt Count MPV Immature Gran % (Auto) Neut % (Auto) Lymph % (Auto) [place] % (Auto) Eos % (Auto) Baso % (Auto) Absolute Neuts (auto) Absolute Lymphs (auto) Nucleated RBC % Differential Comment PT INR Sodium 134 L Potassium 4.8 Chloride 105 Carbon Dioxide 19.0 L Anion Gap 10 BUN 67 H Creatinine 6.43 H Estim Creat Clear Calc 9.01 Est GFR (MDRD) Af Amer 11 L Est GFR (MDRD) Non-Af 9 L BUN/Creatinine Ratio 10.4 Glucose 146 H Calcium 8.1 L POC Glucose 281 H 153 H Micro: Microbiology 07/03/20 10:32 Blood Culture (Wb) - Left Forearm Blood Culture - Preliminary Yeast, not Zoila albicans 07/03/20 10:40 Blood Culture (Wb) - Left Hand Blood Culture - Preliminary No growth in 48 hours. 07/03/20 12:10 Nasal Secretion SARS-CoV-2 Antigen (Rapid) - Final Physical Exam Const alert, oriented x3 and no apparent distress General Appearance: cooperative and comfortable HEENT normocephalic Eyes PERRL Neck full ROM and no lymphadenopathy General: normal visual inspection and trachea midline Resp normal respiratory effort and clear to auscultation bilaterally Auscultation: clear to auscultation bilaterally Cardio regular rate, regular rhythm, S1 normal heart sound and S2 normal heart sound GI soft to palpation and non-tender Auscultation: normoactive bowel sounds Palpation: soft Extremity Extremity Narrative: Mild edema left more than right chronic as per patient at baseline Skin General Skin Exam: no breakdown Neuro oriented x3 and CN's II-XII intact bilaterally Sensorium / Orientation: awake and alert Psych Appearance: grossly normal and appropriate Assessment & Plan Assessment/Plan (1) DEISI (acute kidney injury): PLAN: Differential diagnosis includes obstructive uropathy with bilateral hydronephrosis mostly on the left and also possible ATN with sepsis Recent baseline creatinine is in the low 3 range. UA noted but was obtained after straight cath. Cr is up to > 6mg/dl. renal US showed mild R hydro and moderate L hydro now s/p b/l ureters stents exchange with upgraded size and and urethral scar incision UOP has increased No need for urgent HD. I hope he start to clear solute in the urine. If Cr remains > 6 by Wednesday then he needs to be started on HD. I explained this to the patient Continue to monitor RFP . (2) Hyponatremia: PLAN: from DEISI. Improved with better UOP (3) Hydronephrosis: QUALIFIERS: Hydronephrosis type: other Qualified Code(s): N13.39 - Other hydronephrosis PLAN: Urology Dr. Hill on board. Please see the above plan (4) Candidemia: PLAN: Micafungin repeat blood cultures pending ID on board (5) Hyperkalemia: PLAN: K improved with better kidney function. continue to monitor K level (6) Edema: PLAN: Patient has peripheral edema but better now with better UOP. (7) Metabolic acidosis: PLAN: mild from CKD/DEISI. No need for HC03 replacement
[2020-07-06 20:04] VITALS: BP 128/61; PULSE 96; RESP 16; TEMP 36.8; O2SAT 98
[2020-07-06 21:40] VITALS: PULSE 96
[2020-07-06] MEDS: Loperamide 2 MG Capsule PO (21:40)
[2020-07-06] MEDS: Atorvastatin Calcium 10 MG Tablet PO (21:40)
[2020-07-06 21:50] LABS: Bedside Glucose 164 mg/dL (70-110)
[2020-07-07] VITALS (8 sets, daily range): BP systolic 116–152; BP diastolic 49–67; PULSE 79–91; RESP 16; TEMP 36.7–37.1; O2SAT 95–98
[2020-07-07 06:37] LABS: Absolute Lymphocyte Count 0.69 X10^3/uL (0.83-4.51); Basophil# 0.03 X10^3/uL; Basophil% 0.7 % (0-1); Eosinophil# 0.05 X10^3/uL; Eosinophils% 1.1 % (0-5); Hematocrit 24.4 % (40-54); Hemoglobin 7.7 g/dL (13.0-16.5); Lymphocyte # 0.69 X10^3/ul (0.83-4.51); Lymphocyte % 15.2 % (19-41); Mean Corp Hgb Conc 31.6 g/dL (32-36); Mean Corpuscular Hgb 27.1 pg (27.0-32.0); Mean Corpuscular Volume 85.9 fL (80-94); Monocyte% 15.4 % (0-10); NRBC Flagged by Analyzer 0 % (0-5); Neutrophil # 3.04 X10^3/uL (2.7-7.7); Neutrophil % 66.7 % (47-70); Platelet Count 178 K/mm3 (150-450); RBC Distribution Width CV 14.6 % (11.6-14.6); RBC Distribution Width SD 46.3 fl (35.1-43.9); Red Blood Count 2.84 M/mm3 (4.6-6.2); White Blood Count 4.6 K/mm3 (4.4-11.0)
[2020-07-07 07:04] LABS: Anion Gap 9 (5-15); BUN 60 mg/dL (7-18); BUN/Creat Ratio 10.8 RATIO (10-20); Chloride 109 mmol/L (98-107); Creatinine, Serum 5.58 mg/dL (0.70-1.30); EST Glomerular Filtration Rate 11 mL/min (>60); Est Glom Filt Rate - Afr Amer 13 mL/min (>60); Estimated Creatinine Clearance 10.39 ml/min; Glucose 94 mg/dL (74-106); Potassium 4.4 mmol/L (3.5-5.1); Sodium Level 141 mmol/L (136-145)
[2020-07-07] MEDS: Lactated Ringers 1,000 ML 100 ML IV ×2 (07:52→17:47)
[2020-07-07 08:40] LABS: Bedside Glucose 94 mg/dL (70-110)
[2020-07-07] MEDS: hydrALAZINE 50 MG Tablet PO ×2 (09:37→21:28)
[2020-07-07] MEDS: Loperamide 2 MG Capsule PO ×2 (09:38→21:27)
[2020-07-07] MEDS: Tamsulosin HCl 0.4 MG Capsule PO (09:38)
[2020-07-07] MEDS: Insulin Lispro 100 UNIT/ML INSULN.PEN SC ×2 (11:01→16:32)
[2020-07-07] MEDS: Ferrous Sulfate 325 MG Tablet PO (11:01)
[2020-07-07 11:10] LABS: Bedside Glucose 185 mg/dL (70-110)
--- NOTE | 2020-07-07 13:04 | PCM.PN.HOSP ---
Documented by User: Vladimir BROWN 07/07/20 13:23 Subjective Subjective Patient is a 79-year-old male comfortably resting in bed, alert and oriented x3. Denies chest pain, shortness of breath, sputum production, fever, chills, N/V/D. Objective Data Objective Data Vital Signs: Vital Signs Temp Pulse Resp BP Pulse Ox 98.1 F 79 16 136/60 H 95 07/07/20 09:40 07/07/20 09:40 07/07/20 09:40 07/07/20 09:40 07/07/20 09:40 Oxygen Delivery Method Room Air Weight: 162 lb 4.163 oz Body Mass Index (BMI) 24.5 Intake & Output: Intake and Output for Last 24 Hours 07/05/20 07/06/20 07/07/20 23:59 23:59 23:59 Intake Total 3995 / 4395 3268.34 / 3268.34 1155 / 1155 Output Total 800 / 800 2900 / 2900 4400 / 4400 Balance 3195 / 3595 368.34 / 368.34 -3245 / -3245 Lab / Micro Data Result Diagrams: 07/07/20 06:10 07/07/20 06:10 Labs: Laboratory Results - last 24 hr 07/06/20 07/06/20 07/07/20 17:01 21:44 06:10 WBC 4.6 RBC 2.84 L Hgb 7.7 L Hct 24.4 L MCV 85.9 MCH 27.1 MCHC 31.6 L RDW Std Deviation 46.3 H RDW Coeff of Darian 14.6 Plt Count 178 MPV 9.0 Immature Gran % (Auto) 0.900 Neut % (Auto) 66.7 Lymph % (Auto) 15.2 L [place] % (Auto) 15.4 H Eos % (Auto) 1.1 Baso % (Auto) 0.7 Absolute Neuts (auto) 3.0 Absolute Lymphs (auto) 0.69 L Nucleated RBC % 0 Sodium Potassium Chloride Carbon Dioxide Anion Gap BUN Creatinine Estim Creat Clear Calc Est GFR (MDRD) Af Amer Est GFR (MDRD) Non-Af BUN/Creatinine Ratio Glucose Calcium POC Glucose 153 H 164 H 07/07/20 07/07/20 07/07/20 06:10 07:51 11:00 WBC RBC Hgb Hct MCV MCH MCHC RDW Std Deviation RDW Coeff of Darian Plt Count MPV Immature Gran % (Auto) Neut % (Auto) Lymph % (Auto) [place] % (Auto) Eos % (Auto) Baso % (Auto) Absolute Neuts (auto) Absolute Lymphs (auto) Nucleated RBC % Sodium 141 Potassium 4.4 Chloride 109 H Carbon Dioxide 23.0 Anion Gap 9 BUN 60 H Creatinine 5.58 H Estim Creat Clear Calc 10.39 Est GFR (MDRD) Af Amer 13 L Est GFR (MDRD) Non-Af 11 L BUN/Creatinine Ratio 10.8 Glucose 94 Calcium 8.0 L POC Glucose 94 185 H Micro: Microbiology 07/03/20 10:32 Blood Culture (Wb) - Left Forearm Blood Culture - Preliminary Yeast, not Zoila albicans 07/03/20 10:40 Blood Culture (Wb) - Left Hand Blood Culture - Preliminary No growth in 48 hours. 07/03/20 12:10 Nasal Secretion SARS-CoV-2 Antigen (Rapid) - Final Physical Exam Narrative See subjective. Const alert, oriented x3 and no apparent distress HEENT head/scalp atraumatic and moist oral mucous membranes Head and Scalp: normocephalic Eyes PERRL, EOMs intact bilaterally and conjunctivae normal Neck no lymphadenopathy, supple and no JVD Resp normal respiratory effort, no retractions, no use of accessory muscles and clear to auscultation bilaterally Cardio regular rate, regular rhythm, no murmurs and no JVD GI normal to inspection, nondistended, normoactive bowel sounds, soft to palpation, non-tender and non-distended Extremity normal to inspection, full ROM and no clubbing, cyanosis or edema Skin no rashes or lesions noted, no wounds and no jaundice Neuro CN's II-XII intact bilaterally Psych affect normal Assessment & Plan Assessment/Plan (1) Abnormal urinalysis: (2) Debility: (3) Decreased urine output: (4) DEISI (acute kidney injury): (5) Anemia: (6) Acute UTI: (7) Sepsis: PLAN: 1) Candidemia Presented with sepsis, decreased urinary output into straight catheter at home. Initial blood cultures demonstrated yeast on Gram stain. ID consulted, and suspects urinary source. Plan; continue Zosyn, continue micafungin repeat blood cultures ordered and pending, SHANNAN scheduled for tomorrow. 2) DEISI Creatinine currently 5.58, baseline creatinine is around 3. Urology and nephrology following. Cystoscopy on 07/05 resulted in placement of bilateral stents. Urine output is now adequate, Judd bag full of clear/yellowish urine. Plan; continue to monitor urinary output and BMP, if creatinine is above 6 mg/dL on 07/08 hemodialysis may be initiated by nephrology. 3) Anemia Hemoglobin currently 7.7. 1 unit transfused. 4) catheter associated UTI ID following. Urine cultures demonstrate Enterococcus and GNR x2. Plan; continue Zosyn. 5) Sepsis Secondary to 1 and 4. Vital signs stable, patient afebrile. 6) Debility PT/OT eval and treatment DVT prophylaxis -Lovenox [place] Patient seen by Vladimir Park PA-C, under the supervision of Dr. Washburn. Documented by User: Dr. Rancho Washburn, DO 07/07/20 15:27 Subjective Subjective Feels well. No new complaints. Objective Data Lab / Micro Data Attestation: I reviewed the patient's lab results. Result Diagrams: 07/07/20 06:10 07/07/20 06:10 Physical Exam Const alert Exam Limitations: no limitations Resp normal respiratory effort and clear to auscultation bilaterally Cardio regular rate, regular rhythm, S1 normal heart sound and S2 normal heart sound GI normal to inspection, nondistended, normoactive bowel sounds, non-tender and non-distended Extremity Extremity Narrative: edema bilaterally in LE L>R Assessment & Plan Assessment/Plan (1) Candidemia: PLAN: 1. Candidemia ID consult, who suspects source started on micafungin 1st BCx on 07/03 positive 3/ repeat BCx SHANNAN 2. DEISI imrpoving. non-oliguric Imrpoved post cysto with stent changeon 07/05 DW nephrology. Given increased improved urine output and stable creatinine, hold off on hemodialysis at this time. 3. Anemia Improved after 1 unit monitor Iron low at 9 but ferritin elevated at 1233. Start ferrous sulfate 4. CAUTI (self-cath) UCx showing multiple organisms (poss Enterococcus, GNRx2) on pip/tazo 5. sepsis POA 2/2 candidemia +/- UTI COVID-19 negative (has been vaccinated) 6. Decreased urine outpt check bladder scan Resolved 7. Debility PT OT 8. VTE prophylaxis: LMWH 9. ACP: dw pt. DNRCCA, DNI Visit Charges Inpatient E&M: 57289 Subs Hosp L2
[2020-07-07 16:46] LABS: Bedside Glucose 260 mg/dL (70-110)
[2020-07-07] MEDS: Atorvastatin Calcium 10 MG Tablet PO (21:28)
[2020-07-07 21:41] LABS: Bedside Glucose 162 mg/dL (70-110)
[2020-07-08] VITALS (8 sets, daily range): BP systolic 144–169; BP diastolic 54–79; PULSE 79–103; RESP 16–18; TEMP 36.7–37.2; O2SAT 95–99
[2020-07-08] MEDS: Lactated Ringers 1,000 ML 100 ML IV ×2 (03:06→15:17)
[2020-07-08 06:15] LABS: Absolute Lymphocyte Count 0.88 X10^3/uL (0.83-4.51); Absolute Neutrophil Count 3.7 X10^3/uL (2.0-7.7); Basophil# 0.02 X10^3/uL; Basophil% 0.4 % (0-1); Eosinophil# 0.05 X10^3/uL; Eosinophils% 0.9 % (0-5); Hematocrit 24.9 % (40-54); Hemoglobin 7.8 g/dL (13.0-16.5); Lymphocyte # 0.88 X10^3/ul (0.83-4.51); Lymphocyte % 16.2 % (19-41); Mean Corp Hgb Conc 31.3 g/dL (32-36); Mean Corpuscular Volume 86.2 fL (80-94); Mean Platelet Vol. 8.9 fl (6.2-12.0); Monocyte# 0.69 X10^3/uL; Monocyte% 12.7 % (0-10); NRBC Flagged by Analyzer 0 % (0-5); Neutrophil # 3.71 X10^3/uL (2.7-7.7); Neutrophil % 68.3 % (47-70); Platelet Count 199 K/mm3 (150-450); RBC Distribution Width CV 14.4 % (11.6-14.6); Red Blood Count 2.89 M/mm3 (4.6-6.2); White Blood Count 5.4 K/mm3 (4.4-11.0)
[2020-07-08 06:39] LABS: Anion Gap 8 (5-15); BUN 51 mg/dL (7-18); BUN/Creat Ratio 11.1 RATIO (10-20); Chloride 110 mmol/L (98-107); EST Glomerular Filtration Rate 13 mL/min (>60); Est Glom Filt Rate - Afr Amer 16 mL/min (>60); Glucose 154 mg/dL (74-106); Potassium 3.9 mmol/L (3.5-5.1); Sodium Level 141 mmol/L (136-145)
[2020-07-08 06:50] LABS: Bedside Glucose 141 mg/dL (70-110)
--- NOTE | 2020-07-08 08:00 | ECHOTEE_ITS ---
Reason For Study: Candidemia Medication SHANNAN probe 6VT-D (SN [id number]) passed without difficulty. No complications were noted. Cetacaine Topical [place] given X3 orally. Versed 2 mg given slow IVP. Fentanyl 50 mcg given slow IVP. Performed a rapid injection of agitated mix of 9 cc saline and 1cc air to assess for atrial septal defect. Left Ventricle Normal LV size. Left ventricular systolic function is normal. The estimated ejection fraction is 60 %. No regional wall motion abnormalities noted. Right Ventricle Normal RV size. Normal systolic function. Atria Bubble contrast study negative for right to left interatrial shunt. Normal left atrium. No thrombus is detected in the left atrial appendage. Normal right atrium. Mitral Valve Normal mitral valve. Mild (1+) eccentric mitral valve insufficiency. Tricuspid Valve Normal tricuspid valve. Aortic Valve Normal aortic valve. Trisinus/trileaflet aortic valve. Mild (1+) eccentric aortic valve insufficiency. Pulmonic Valve Normal pulmonic valve. Mild (1+) pulmonic valve insufficiency. Vessels Normal aortic root. Normal arch. The pulmonary artery is normal size. Pericardium No pericardial effusion. ECHO/Echo Transesophageal (SHANNAN) Interpretation Summary There is no evidence of a mass or vegetation. This does not rule out endocardit is. Normal LV size. Left ventricular systolic function is normal. The estimated ejection fraction is 60 %. Mild (1+) eccentric mitral valve insufficiency. Mild (1+) eccentric aortic valve insufficiency. Ordering Physician: Eric Mccollum Referring Physician: Srinivas Thayer Performed By: Stephanie Rendon, TERRY, RVT
[2020-07-08] MEDS: 0.9% Saline Lock 10 ML Syringe IV (10:11)
[2020-07-08 13:16] LABS: Bedside Glucose 130 mg/dL (70-110)
--- NOTE | 2020-07-08 13:41 | PCM.PN.REN ---
Subjective Subjective The patient has no complaints wants to go home. Denies chest pain shortness of breath fever chills. Objective Data Objective Data Vital Signs: Vital Signs Temp Pulse Resp BP Pulse Ox 98.0 F 89 18 169/73 H 96 07/08/20 12:43 07/08/20 10:15 07/08/20 12:43 07/08/20 12:43 07/08/20 12:43 Oxygen Delivery Method Room Air Weight: 73.6 kg Body Mass Index (BMI) 24.5 Intake & Output: Intake and Output for Last 24 Hours 07/06/20 07/07/20 07/08/20 23:59 23:59 23:59 Intake Total 3268.34 / 3268.34 2556.67 / 2756.67 2110.00 / 2110.00 Output Total 2900 / 2900 5500 / 6700 3250 / 3250 Balance 368.34 / 368.34 -2943.33 / -3943.33 -1140.00 / -1140.00 Lab / Micro Data Result Diagrams: 07/08/20 05:40 07/08/20 05:40 Labs: Laboratory Results - last 24 hr 07/07/20 07/07/20 07/08/20 16:30 21:35 05:40 WBC 5.4 RBC 2.89 L Hgb 7.8 L Hct 24.9 L MCV 86.2 MCH 27.0 MCHC 31.3 L RDW Std Deviation 46.0 H RDW Coeff of Darian 14.4 Plt Count 199 MPV 8.9 Immature Gran % (Auto) 1.500 H Neut % (Auto) 68.3 Lymph % (Auto) 16.2 L [place] % (Auto) 12.7 H Eos % (Auto) 0.9 Baso % (Auto) 0.4 Absolute Neuts (auto) 3.7 Absolute Lymphs (auto) 0.88 Nucleated RBC % 0 Sodium Potassium Chloride Carbon Dioxide Anion Gap BUN Creatinine Estim Creat Clear Calc Est GFR (MDRD) Af Amer Est GFR (MDRD) Non-Af BUN/Creatinine Ratio Glucose Calcium POC Glucose 260 H 162 H 07/08/20 07/08/20 07/08/20 05:40 06:43 13:09 WBC RBC Hgb Hct MCV MCH MCHC RDW Std Deviation RDW Coeff of Darian Plt Count MPV Immature Gran % (Auto) Neut % (Auto) Lymph % (Auto) [place] % (Auto) Eos % (Auto) Baso % (Auto) Absolute Neuts (auto) Absolute Lymphs (auto) Nucleated RBC % Sodium 141 Potassium 3.9 Chloride 110 H Carbon Dioxide 23.0 Anion Gap 8 BUN 51 H Creatinine 4.60 H Estim Creat Clear Calc 12.60 Est GFR (MDRD) Af Amer 16 L Est GFR (MDRD) Non-Af 13 L BUN/Creatinine Ratio 11.1 Glucose 154 H Calcium 8.0 L POC Glucose 141 H 130 H Micro: Microbiology 07/03/20 10:40 Blood Culture (Wb) - Left Hand Blood Culture - Final No growth in 5 days. 07/03/20 10:32 Blood Culture (Wb) - Left Forearm Blood Culture - Preliminary Yeast, not Zoila albicans 07/03/20 12:10 Nasal Secretion SARS-CoV-2 Antigen (Rapid) - Final Radiography Diagnostic Testing: Radiology Impression Transesophageal Echocardiogram 07/08/20 08:00 Interpretation Summary There is no evidence of a mass or vegetation. This does not rule out endocarditis. Normal LV size. Left ventricular systolic function is normal. The estimated ejection fraction is 60 %. Mild (1+) eccentric mitral valve insufficiency. Mild (1+) eccentric aortic valve insufficiency. Ordering Physician: Eric Mccollum Referring Physician: Srinivas Thayer Performed By: Stephanie Rendon, TERRY, RVT Physical Exam Const alert and no apparent distress General Appearance: comfortable HEENT normocephalic HEENT Narrative: atraumatic Neck General: normal visual inspection and trachea midline Resp normal respiratory effort and clear to auscultation bilaterally Cardio regular rate, regular rhythm, S1 normal heart sound and S2 normal heart sound GI soft to palpation and non-tender Extremity Extremity Narrative: Chronic left lower extremity edema no edema on the right lower extremity. Neuro Sensorium / Orientation: awake and alert Assessment & Plan Assessment/Plan (1) DEISI (acute kidney injury): PLAN: Differential diagnosis includes obstructive uropathy with bilateral hydronephrosis mostly on the left and also possible ATN with sepsis Recent baseline creatinine is in the low 3 range. UA noted but was obtained after straight cath. Cr is up to > 6mg/dl. renal US showed mild R hydro and moderate L hydro now s/p b/l ureters stents exchange with upgraded size and and urethral scar incision Serum creatinine is 4.6 much better no need for [employer] the patient has excellent urine output 4.3 L -0.8 L. . (2) Hyponatremia: PLAN: Resolved sodium is 141 today (3) Hydronephrosis: QUALIFIERS: Hydronephrosis type: other Qualified Code(s): N13.39 - Other hydronephrosis PLAN: Urology Dr. Hill on board. Please see the above plan (4) Candidemia: PLAN: Micafungin ID on board (5) Hyperkalemia: PLAN: Resolved (6) Edema: PLAN: Chronic left lower extremity edema at baseline per patient (7) Metabolic acidosis: PLAN: Resolved t
--- NOTE | 2020-07-08 14:23 | PN.HOSP_ITS ---
Documented by User: Vladimir BROWN 07/08/20 14:31 Objective Data Objective Data Vital Signs: Vital Signs Temp Pulse Resp BP Pulse Ox 98.0 F 89 18 169/73 H 96 07/08/20 12:43 07/08/20 10:15 07/08/20 12:43 07/08/20 12:43 07/08/20 12:43 Oxygen Delivery Method Room Air Weight: 162 lb 4.163 oz Body Mass Index (BMI) 24.5 Intake & Output: Intake and Output for Last 24 Hours 07/06/20 07/07/20 07/08/20 23:59 23:59 23:59 Intake Total 3268.34 / 3268.34 2556.67 / 2756.67 2110.00 / 2110.00 Output Total 2900 / 2900 5500 / 6700 3250 / 3250 Balance 368.34 / 368.34 -2943.33 / -3943.33 -1140.00 / -1140.00 Lab / Micro Data Result Diagrams: 07/09/20 05:45 07/09/20 05:45 Labs: Laboratory Results - last 24 hr 07/07/20 07/07/20 07/08/20 16:30 21:35 05:40 WBC 5.4 RBC 2.89 L Hgb 7.8 L Hct 24.9 L MCV 86.2 MCH 27.0 MCHC 31.3 L RDW Std Deviation 46.0 H RDW Coeff of Darian 14.4 Plt Count 199 MPV 8.9 Immature Gran % (Auto) 1.500 H Neut % (Auto) 68.3 Lymph % (Auto) 16.2 L [place] % (Auto) 12.7 H Eos % (Auto) 0.9 Baso % (Auto) 0.4 Absolute Neuts (auto) 3.7 Absolute Lymphs (auto) 0.88 Nucleated RBC % 0 Sodium Potassium Chloride Carbon Dioxide Anion Gap BUN Creatinine Estim Creat Clear Calc Est GFR (MDRD) Af Amer Est GFR (MDRD) Non-Af BUN/Creatinine Ratio Glucose Calcium POC Glucose 260 H 162 H 07/08/20 07/08/20 07/08/20 05:40 06:43 13:09 WBC RBC Hgb Hct MCV MCH MCHC RDW Std Deviation RDW Coeff of Darian Plt Count MPV Immature Gran % (Auto) Neut % (Auto) Lymph % (Auto) [place] % (Auto) Eos % (Auto) Baso % (Auto) Absolute Neuts (auto) Absolute Lymphs (auto) Nucleated RBC % Sodium 141 Potassium 3.9 Chloride 110 H Carbon Dioxide 23.0 Anion Gap 8 BUN 51 H Creatinine 4.60 H Estim Creat Clear Calc 12.60 Est GFR (MDRD) Af Amer 16 L Est GFR (MDRD) Non-Af 13 L BUN/Creatinine Ratio 11.1 Glucose 154 H Calcium 8.0 L POC Glucose 141 H 130 H Micro: Microbiology 07/03/20 10:40 Blood Culture (Wb) - Left Hand Blood Culture - Final No growth in 5 days. 07/03/20 10:32 Blood Culture (Wb) - Left Forearm Blood Culture - Preliminary Yeast, not Zoila albicans 07/03/20 12:10 Nasal Secretion SARS-CoV-2 Antigen (Rapid) - Final Radiography Diagnostic Testing: Radiology Impression Transesophageal Echocardiogram 07/08/20 08:00 Interpretation Summary There is no evidence of a mass or vegetation. This does not rule out e ndocarditis. Normal LV size. Left ventricular systolic function is normal. The estimated ejection fraction is 60 %. Mild (1+) eccentric mitral valve insufficiency. Mild (1+) eccentric aortic valve insufficiency. Ordering Physician: Eric Mccollum Referring Physician: Srinivas Thayer Performed By: Stephanie Rendon, TERRY, RVT Assessment & Plan Assessment/Plan (1) Abnormal urinalysis: (2) Debility: (3) Decreased urine output: (4) DEISI (acute kidney injury): (5) Anemia: (6) Acute UTI: (7) Sepsis: PLAN: See subjective for patient presentation. Per conversation with infectious disease, once fungus can be identified and appropriate antifungal prescribed, patient can be discharged. Anticipate discharge tomorrow morning. 1) Candidemia Presented with sepsis, decreased urinary output into straight catheter at home. Initial blood cultures demonstrated yeast on Gram stain. ID consulted, and suspects urinary source. SHANNAN on 07/08/2020 demonstrated no evidence of a mass or vegetation, normal LV size and systolic function and an estimated EF of 60%. Plan; continue Zosyn, continue micafungin repeat blood cultures ordered and pending, SHANNAN scheduled for tomorrow. 2) DEISI Creatinine currently 4.6, baseline creatinine is around 3. Urology and nephrology following. Cystoscopy on 07/05 resulted in placement of bilateral stents. Urine output is now adequate, Judd bag full of clear/yellowish urine. Plan; continue to monitor urinary output and BMP, nephrology following, continue to monitor BMP. 3) Anemia Hemoglobin currently 7.8, stable. 4) catheter associated UTI ID following. Urine cultures demonstrate Enterococcus faecalis, proteus vulgaris and Stenotrophomonas maltophilia. Plan; continue Zosyn. 5) Sepsis Secondary to 1 and 4. Vital signs stable, patient afebrile. 6) Debility PT/OT eval and treatment DVT prophylaxis - Lovenox [place] Patient seen by Vladimir Park PA-C, under the supervision of Dr. Pedro. Documented by User: Dr. Aidan Pedro MD 07/09/20 14:27 Subjective Subjective Patient does not have chest pain, shortness of breath. Patient had SHANNAN in the morning today. Has Judd catheter and bilateral ureteric stents. Objective Data Lab / Micro Data Result Diagrams: 07/09/20 05:45 07/09/20 05:45 Physical Exam Narrative General: Alert, Oriented x3, Cooperative HEENT: Atraumatic, PERRLA, EOMI, Normocephalic Oral: No Gingival or Mucosal Lesions/ Ulcerations Neck: Supple, No JVD, Negative Carotid Bruits Lungs: Air entry diminished in bilateral lung bases. No crepitation/rhonchi Cardiovascular: Regular rate, Regular Rhythm, Normal S1, Normal S2, No murmurs Abdomen: Bowel Sounds Present, Soft, Non Tender, Non-Distended : Clear urine in the Judd catheter. No renal angle tenderness. No suprapubic tenderness. Extremities: Left leg is more swollen than right leg especially below knee. No large, palpable inguinal lymphadenopathy, capillary Refill Less than 3 Seconds Skin: No rashes, No breakdown Musculoskeletal: No Tenderness to Palpation of Joints or Extremities Neurological: Cranial nerves II-XII grossly intact, Deep Tendon Reflexes 2+/4 and Symmetrical, Neuro grossly intact Psych/Mental Status: Normal Affect, Appropriate. Assessment & Plan Assessment/Plan (1) DEISI (acute kidney injury): (2) Candidemia: PLAN: This patient was seen in conjunction with KEVIN Oliva. I have independently interviewed and examined the patient and reviewed pertinent history, examination findings, laboratory and plan of management. I have reviewed the note and agree with the documented findings with the few additional points. In brief, patient is admitted for fever, depression 103 Fahrenheit was initially discharged on Levaquin but had persistent fever on antibiotic therefore admitted with clinical diagnosis of sepsis from UTI. Patient was diagnosed with DEISI on CKD stage III, started on IV Zosyn urologist and talent partner was consulted. Patient had cystoscopy on 07/05 and had bilateral ureteric stents and Judd catheter placed. Urine is clear in Judd. 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 Patient had candidemia and seen by ID initially required IV micafungin but transition to fluconazole. Had SHANNAN did not show vegetation. Kidney function improved to 4.6. Patient having good urine output. Patient also has anemia of chronic disease and hemoglobin remained stable. Patient also has diabetes mellitus type 2 and sugars are elevated is controlled. I have discussed my assessment with KEVIN Oliva and orders have been reviewe d. I talked to the patient's , daughter present in the room and explained the clinical diagnosis and management plan. Visit Charges Inpatient E&M: 05812 Subs Hosp L2
--- NOTE | 2020-07-08 14:45 | PCM.PN.ID ---
Physical Exam Narrative SHANNAN this AM, no fever, feeling better Const alert and no apparent distress General Appearance: cooperative Resp normal air movement and clear to auscultation bilaterally Cardio regular rate and regular rhythm Heart Sounds: murmur GI normal to inspection, nondistended, normoactive bowel sounds Skin no rashes or lesions noted ID ID: Route of nutrition/ use of supplements: [] Nutritional Intake: [] IV Site: [] Judd Catheter: [] Assessment & Plan Assessment/Plan (1) Sepsis: (2) Candidemia: PLAN: Presented with sepsis, decreased UOP, does straight cath at home. Fully vaccinated for covid. 2 of 2 bcx with yeast on gram stain. Suspect urinary source, no central lines in place. Ucx with e. faecalis, proteus, small amount of stenotrophomonas. On zosyn. Cont micafungin. No veg seen on SHANNAN. Cr slowly improving. Neph following. Awaiting further ID of yeast, hopefully can go home on po fluconazole. Will follow. (3) Stage 3a chronic kidney disease:
[2020-07-08] MEDS: Tamsulosin HCl 0.4 MG Capsule PO (15:19)
[2020-07-08] MEDS: Loperamide 2 MG Capsule PO ×2 (15:19→21:36)
[2020-07-08] MEDS: hydrALAZINE 50 MG Tablet PO ×2 (15:20→21:37)
--- NOTE | 2020-07-08 16:02 | CASEMGMT ---
RN CM in to pt room. Pt and dtr at bedside. Pt states he did well with therapy and has had [facility] in the past for therapy but does not feel like he needs it now. Pt also states he was seen by Palliative Care in the past and did not sign up with them. He denies need. Pt screened with [facility] Palliative Screening Tool due to Strata 4, met criteria.
[2020-07-08] MEDS: Atorvastatin Calcium 10 MG Tablet PO (21:37)
[2020-07-08 21:55] LABS: Bedside Glucose 217 mg/dL (70-110)
[2020-07-09] MEDS: Lactated Ringers 1,000 ML 100 ML IV (01:16)
[2020-07-09 03:36] VITALS: BP 168/59; PULSE 83; RESP 18; TEMP 37; O2SAT 97
[2020-07-09 06:25] VITALS: BP 138/46; PULSE 75; RESP 18; TEMP 36.9; O2SAT 98
[2020-07-09 06:35] LABS: Bedside Glucose 112 mg/dL (70-110)
[2020-07-09 06:54] LABS: Absolute Lymphocyte Count 0.71 X10^3/uL (0.83-4.51); Absolute Neutrophil Count 3.9 X10^3/uL (2.0-7.7); Basophil# 0.02 X10^3/uL; Basophil% 0.4 % (0-1); Eosinophil# 0.07 X10^3/uL; Eosinophils% 1.3 % (0-5); Hematocrit 24.7 % (40-54); Hemoglobin 7.8 g/dL (13.0-16.5); Lymphocyte # 0.71 X10^3/ul (0.83-4.51); Mean Corp Hgb Conc 31.6 g/dL (32-36); Mean Corpuscular Hgb 27.7 pg (27.0-32.0); Mean Corpuscular Volume 87.6 fL (80-94); Mean Platelet Vol. 8.9 fl (6.2-12.0); Monocyte# 0.64 X10^3/uL; Monocyte% 11.7 % (0-10); NRBC Flagged by Analyzer 0 % (0-5); Neutrophil # 3.91 X10^3/uL (2.7-7.7); Neutrophil % 71.2 % (47-70); Platelet Count 183 K/mm3 (150-450); RBC Distribution Width CV 14.4 % (11.6-14.6); RBC Distribution Width SD 46.4 fl (35.1-43.9); Red Blood Count 2.82 M/mm3 (4.6-6.2); White Blood Count 5.5 K/mm3 (4.4-11.0)
[2020-07-09 07:33] LABS: Anion Gap 7 (5-15); BUN 42 mg/dL (7-18); BUN/Creat Ratio 10.8 RATIO (10-20); Calcium,Total 8.1 mg/dL (8.5-10.1); Chloride 109 mmol/L (98-107); EST Glomerular Filtration Rate 16 mL/min (>60); Est Glom Filt Rate - Afr Amer 19 mL/min (>60); Estimated Creatinine Clearance 14.86 ml/min; Glucose 115 mg/dL (74-106); Sodium Level 141 mmol/L (136-145)
[2020-07-09] MEDS: Tamsulosin HCl 0.4 MG Capsule PO (07:44)
[2020-07-09 07:47] VITALS: BP 149/61; PULSE 85
[2020-07-09] MEDS: Loperamide 2 MG Capsule PO (07:47)
[2020-07-09] MEDS: hydrALAZINE 50 MG Tablet PO (07:47)
[2020-07-09 08:21] VITALS: BP 149/61; PULSE 85; RESP 16; TEMP 37.1; O2SAT 98
--- NOTE | 2020-07-09 10:17 | PN.ID_ITS ---
Physical Exam Narrative Feeling better, no fever, no n/v/d. Const alert General Appearance: cooperative Resp normal air movement and clear to auscultation bilaterally Cardio regular rate and regular rhythm GI normal to inspection, nondistended, normoactive bowel sounds Skin no rashes or lesions noted ID ID: Route of nutrition/ use of supplements: [] Nutritional Intake: [] IV Site: [] Judd Catheter: [] Assessment & Plan Assessment/Plan (1) Sepsis: (2) Candidemia: PLAN: Presented with sepsis, decreased UOP, does straight cath at home. F ully vaccinated for covid. 2 of 2 bcx with yeast on gram stain. Suspect urinary source, no central lines in place. Ucx with e. faecalis, proteus, small amount of stenotrophomonas. On zosyn. Cont micafungin. No veg seen on SHANNAN. Cr slowly improving. Neph following. Spoke with micro lab, yeast identified as Zoila lorenzoyr. Rare yeast as pathogen, from available studies seems like fluconazole is more reliable in terms of susceptibility than micafungin. Ok for home with one week po fluc. Will follow as needed, thank you (3) Stage 3a chronic kidney disease:
[2020-07-09] MEDS: Fluconazole 100 MG Tablet 400 MG PO (11:12)
[2020-07-09] MEDS: Insulin Lispro 100 UNIT/ML INSULN.PEN SC (11:18)
--- NOTE | 2020-07-09 11:55 | DS.PCM_ITS ---
Providers Date of Admission: 07/04/20 Primary Care Physician: Dr. Srinivas Thayer MD Consultations 07/03/20 23:21 Consult: Urology Routine Consulting Provider: Tal Hill Reason for Consult: unable to self cath EMERGENT Consult: Yes MD Notified: Yes Date Notified:: 07/03/20 Time Notified: 21:40 Method of Notification: Provider Initiated 07/04/20 07:06 Consult: Infectious Disease Routine Consulting Provider: Eric Mccollum Reason for Consult: fungemia EMERGENT Consult: No MD Notified: Yes Date Notified:: 07/04/20 Time Notified: 07:06 Method of Notification: Text 07/04/20 07:53 Consult: Nephrology Routine Consulting Provider: Humza Gómez Reason for Consult: DEISI EMERGENT Consult: No Notified: Yes Date Notified:: 07/04/20 Time Notified: 07:54 Method of Notification: Answering Service Reason For Visit: FEVER Diagnosis Discharge Diagnosis (1) Sepsis: Status: Acute Code(s): A41.9 - Sepsis, unspecified organism (2) Candidemia: Status: Acute Code(s): B37.7 - Candidal sepsis (3) Stage 3a chronic kidney disease: Status: Chronic Code(s): N18.31 - Chronic kidney disease, stage 3a Medications at Discharge Home Medications cholecalciferol (vitamin D3) 1,000 unit PO DAILY 12/08/19 loperamide 2 mg PO BID 12/08/19 hydralazine 50 mg PO BID #60 tablet 05/07/20 tamsulosin 0.4 mg PO DAILY #30 cap 05/07/20 acetaminophen 650 mg PO Q6H PRN PRN tablet 05/25/20 atorvastatin 10 mg PO QHS 07/03/20 insulin glargine 10 units SC DAILY 07/03/20 fluconazole 200 mg PO DAILY #7 tab 07/09/20 ABG / Lab / Microbiology Data Result Diagrams: 07/09/20 05:45 07/09/20 05:45 Laboratory: Laboratory Results - last 24 hr 07/05/20 07/08/20 07/08/20 08:20 13:09 21:51 WBC RBC Hgb Hct MCV MCH MCHC RDW Std Deviation RDW Coeff of Darian Plt Count MPV Immature Gran % (Auto) Neut % (Auto) Lymph % (Auto) Barron % (Auto) Eos % (Auto) Baso % (Auto) Absolute Neuts (auto) Absolute Lymphs (auto) Nucleated RBC % Sodium Potassium Chloride Carbon Dioxide Anion Gap BUN Creatinine Estim Creat Clear Calc Est GFR (MDRD) Af Amer Est GFR (MDRD) Non-Af BUN/Creatinine Ratio Glucose Calcium POC Glucose 130 H 217 H Crossmatch See Detail 07/09/20 07/09/20 07/09/20 05:45 05:45 06:28 WBC 5.5 RBC 2.82 L Hgb 7.8 L Hct 24.7 L MCV 87.6 MCH 27.7 MCHC 31.6 L RDW Std Deviation 46.4 H RDW Coeff of Darian 14.4 Plt Count 183 MPV 8.9 Immature Gran % (Auto) 2.400 H Neut % (Auto) 71.2 H Lymph % (Auto) 13.0 L Barron % (Auto) 11.7 H Eos % (Auto) 1.3 Baso % (Auto) 0.4 Absolute Neuts (auto) 3.9 Absolute Lymphs (auto) 0.71 L Nucleated RBC % 0 Sodium 141 Potassium 4.0 Chloride 109 H Carbon Dioxide 25.0 Anion Gap 7 BUN 42 H Creatinine 3.90 H Estim Creat Clear Calc 14.86 Est GFR (MDRD) Af Amer 19 L Est GFR (MDRD) Non-Af 16 L BUN/Creatinine Ratio 10.8 Glucose 115 H Calcium 8.1 L POC Glucose 112 H Crossmatch Microbiology: Microbiology 07/03/20 10:40 Blood Culture - Final Blood Culture (Wb) - Left Hand No growth in 5 days. Microbiology 07/03/20 10:40 Blood Culture (Wb) - Left Hand Blood Culture - Final No growth in 5 days. 07/03/20 10:32 Blood Culture (Wb) - Left Forearm Blood Culture - Preliminary Yeast, not Zoila albicans 07/03/20 12:10 Nasal Secretion SARS-CoV-2 Antigen (Rapid) - Final Radiography Diagnostic Testing: Radiology Impression Transesophageal Echocardiogram 07/08/20 08:00 Interpretation Summary There is no evidence of a mass or vegetation. This does not rule out endocarditi s. Normal LV size. Left ventricular systolic function is normal. The estimated ejection fraction is 60 %. Mild (1+) eccentric mitral valve insufficiency. Mild (1+) eccentric aortic valve insufficiency. Ordering Physician: Eric Mccollum Referring Physician: Srinivas Thayer Performed By: Stephanie Rendon RDCS, RVT Discharge Plan Admission Admit Date/Time: 07/04/20 09:38 Attending Provider: Aidan Pedro Primary Care Provider: Srinivas Thayer Consulting Providers: Tal Hill ; Eric Mccollum ; Humza Gómez Discharge Orders/Prescriptions Prescriptions: New fluconazole 200 mg tablet 200 mg PO DAILY Qty: 7 RF: 0 Discontinued levofloxacin 250 mg tablet 250 mg PO Q48H Qty: 3 RF: 0 No Action loperamide 2 MG capsule 2 mg PO BID RF: 0 cholecalciferol (vitamin D3) 1,000 UNIT tablet 1,000 unit PO DAILY RF: 0 tamsulosin 0.4 MG capsule 0.4 mg PO DAILY Qty: 30 RF: 0 hydralazine 50 MG tablet 50 mg PO BID Qty: 60 RF: 0 acetaminophen 325 MG tablet 650 mg PO Q6H PRN PRN (Reason: Pain Score 1-10/Temp > 100.7 F) RF: 0 atorvastatin 10 mg tablet 10 mg PO QHS RF: 0 insulin glargine 100 UNITS/ML insulin pen 10 units SC DAILY RF: 0 Referrals / Follow Up: Srinivas Thayer MD [Primary Care Provider] -
--- NOTE | 2020-07-09 11:55 | PCM.DC ---
Discharge Instructions Diet Discharge Diet: No restrictions Activity Discharge Activity: Return to Normal Activity Follow Up Care Please Follow Up With: Primary care provider When: 07/15/2020 Test Results: Test results from this visit will be discussed in further detail at your follow-up appointment, if applicable. Discharge Plan Admission Admit Date/Time: 07/04/20 09:38 Attending Provider: Aidan Pedro Primary Care Provider: Srinivas Thayer Consulting Providers: Tal Hill ; Eric Mccollum ; Humza Gómez Discharge Orders/Prescriptions Prescriptions: New fluconazole 200 mg tablet 200 mg PO DAILY Qty: 7 RF: 0 Continued loperamide 2 MG capsule 2 mg PO BID RF: 0 cholecalciferol (vitamin D3) 1,000 UNIT tablet 1,000 unit PO DAILY RF: 0 tamsulosin 0.4 MG capsule 0.4 mg PO DAILY Qty: 30 RF: 0 hydralazine 50 MG tablet 50 mg PO BID Qty: 60 RF: 0 acetaminophen 325 MG tablet 650 mg PO Q6H PRN PRN (Reason: Pain Score 1-10/Temp > 100.7 F) RF: 0 atorvastatin 10 mg tablet 10 mg PO QHS RF: 0 insulin glargine 100 UNITS/ML insulin pen 10 units SC DAILY RF: 0 Discontinued levofloxacin 250 mg tablet 250 mg PO Q48H Qty: 3 RF: 0 Referrals / Follow Up: Srinivas Thayer MD [Primary Care Provider] - Disposition Disposition (needs filled in before D/C Order can be placed): Home, self care
[2020-07-09 12:16] VITALS: BP 143/68; PULSE 101; RESP 16; TEMP 36.5; O2SAT 99
--- NOTE | 2020-07-09 12:18 | PCM.DC.SUM ---
Documented by User: Vladimir BROWN 07/09/20 12:28 Providers Date of Admission: 07/04/20 Primary Care Physician: Dr. Srinivas Thayer MD Consultations 07/03/20 23:21 Consult: Urology Routine Consulting Provider: Tal Hill Reason for Consult: unable to self cath EMERGENT Consult: Yes MD Notified: Yes Date Notified:: 07/03/20 Time Notified: 21:40 Method of Notification: Provider Initiated 07/04/20 07:06 Consult: Infectious Disease Routine Consulting Provider: Eric Mccollum Reason for Consult: fungemia EMERGENT Consult: No Notified: Yes Date Notified:: 07/04/20 Time Notified: 07:06 Method of Notification: Text 07/04/20 07:53 Consult: Nephrology Routine Consulting Provider: Humza Gómez Reason for Consult: DEISI EMERGENT Consult: No Notified: Yes Date Notified:: 07/04/20 Time Notified: 07:54 Method of Notification: Answering Service Reason For Visit: FEVER Diagnosis Discharge Diagnosis (1) Sepsis: Status: Acute Code(s): A41.9 - Sepsis, unspecified organism (2) Candidemia: Status: Acute Code(s): B37.7 - Candidal sepsis (3) Stage 3a chronic kidney disease: Status: Chronic Code(s): N18.31 - Chronic kidney disease, stage 3a Medications at Discharge Home Medications cholecalciferol (vitamin D3) 1,000 unit PO DAILY 12/08/19 loperamide 2 mg PO BID 12/08/19 hydralazine 50 mg PO BID #60 tablet 05/07/20 tamsulosin 0.4 mg PO DAILY #30 cap 05/07/20 acetaminophen 650 mg PO Q6H PRN PRN tablet 05/25/20 atorvastatin 10 mg PO QHS 07/03/20 insulin glargine 10 units SC DAILY 07/03/20 fluconazole 200 mg PO DAILY #7 tab 07/09/20 Hospital Course Summary of Care Provided Minutes Spent on Discharge: 35 Hospital Course: See subjective for patient presentation. Yeast in blood identified as Zoila Kefyr. Placed on fluconazole p.o. x1 week, per ID. 1) Candidemia Yeast identified as Zoila Kefyr, as above. Presented with sepsis, decreased urinary output into straight catheter at home. SHANNAN on 07/08/2020 demonstrated no evidence of a mass or vegetation, normal LV size and systolic function and an estimated EF of 60%. Plan; fluconazole at home as above, discharge today, follow-up with PCP on 07/18. 2) DEISI Creatinine currently 4.6, baseline creatinine is around 3. Urology and nephrology following. Cystoscopy on 07/05 resulted in placement of bilateral stents. Urine output is now adequate, Judd bag full of clear/yellowish urine. Plan; follow-up with PCP on 07/18. 3) Anemia Hemoglobin currently 7.8, stable. 4) catheter associated UTI ID following. Urine cultures demonstrate Enterococcus faecalis, proteus vulgaris and Stenotrophomonas maltophilia. On Zosyn since 07/05, per ID. At home antibiotics not indicated, per ID. 5) Sepsis Secondary to 1 and 4. Vital signs stable, patient afebrile. 6) Debility PT/OT as an outpatient. Patient seen by Vladimir Park PA-C, under the supervision of Dr. Pedro. Physical Exam Narrative Patient is a 79-year-old male who is comfortably resting in a chair, alert and oriented x3. Patient reports no progression in symptoms from yesterday and feels well enough to return home. Denies chest pain, shortness of breath, sputum production, fever, chills, N/V/D. Denies any pain or difficulty with urination. Const alert, oriented x3 and no apparent distress HEENT normocephalic, head/scalp atraumatic and hearing grossly normal bilaterally Eyes PERRL, EOMs intact bilaterally and conjunctivae normal Neck no lymphadenopathy, supple and no JVD Resp normal respiratory effort, no use of accessory muscles and clear to auscultation bilaterally Cardio regular rate, regular rhythm, no murmurs and no JVD GI normal to inspection, nondistended, normoactive bowel sounds, soft to palpation, non-tender and non-distended Extremity normal to inspection, full ROM and no clubbing, cyanosis or edema Skin no rashes or lesions noted, no wounds and no jaundice Neuro CN's II-XII intact bilaterally Psych affect normal ABG / Lab / Microbiology Data Result Diagrams: 07/09/20 05:45 07/09/20 05:45 Laboratory: Laboratory Results - last 24 hr 05/14/21 05/17/21 05/17/21 08:20 13:09 21:51 WBC RBC Hgb Hct MCV MCH MCHC RDW Std Deviation RDW Coeff of Darian Plt Count MPV Immature Gran % (Auto) Neut % (Auto) Lymph % (Auto) Centre % (Auto) Eos % (Auto) Baso % (Auto) Absolute Neuts (auto) Absolute Lymphs (auto) Nucleated RBC % Sodium Potassium Chloride Carbon Dioxide Anion Gap BUN Creatinine Estim Creat Clear Calc Est GFR (MDRD) Af Amer Est GFR (MDRD) Non-Af BUN/Creatinine Ratio Glucose Calcium POC Glucose 130 H 217 H Crossmatch See Detail 07/09/20 07/09/20 07/09/20 05:45 05:45 06:28 WBC 5.5 RBC 2.82 L Hgb 7.8 L Hct 24.7 L MCV 87.6 MCH 27.7 MCHC 31.6 L RDW Std Deviation 46.4 H RDW Coeff of Darian 14.4 Plt Count 183 MPV 8.9 Immature Gran % (Auto) 2.400 H Neut % (Auto) 71.2 H Lymph % (Auto) 13.0 L Centre % (Auto) 11.7 H Eos % (Auto) 1.3 Baso % (Auto) 0.4 Absolute Neuts (auto) 3.9 Absolute Lymphs (auto) 0.71 L Nucleated RBC % 0 Sodium 141 Potassium 4.0 Chloride 109 H Carbon Dioxide 25.0 Anion Gap 7 BUN 42 H Creatinine 3.90 H Estim Creat Clear Calc 14.86 Est GFR (MDRD) Af Amer 19 L Est GFR (MDRD) Non-Af 16 L BUN/Creatinine Ratio 10.8 Glucose 115 H Calcium 8.1 L POC Glucose 112 H Crossmatch Microbiology: Microbiology 07/03/20 10:40 Blood Culture - Final Blood Culture (Wb) - Left Hand No growth in 5 days. Microbiology 07/03/20 10:40 Blood Culture (Wb) - Left Hand Blood Culture - Final No growth in 5 days. 07/03/20 10:32 Blood Culture (Wb) - Left Forearm Blood Culture - Preliminary Yeast, not Zoila albicans 07/03/20 12:10 Nasal Secretion SARS-CoV-2 Antigen (Rapid) - Final Radiography Diagnostic Testing: Radiology Impression Transesophageal Echocardiogram 07/08/20 08:00 Interpretation Summary There is no evidence of a mass or vegetation. This does not rule out endocarditis. Normal LV size. Left ventricular systolic function is normal. The estimated ejection fraction is 60 %. Mild (1+) eccentric mitral valve insufficiency. Mild (1+) eccentric aortic valve insufficiency. Ordering Physician: Eric Mccollum Referring Physician: Srinivas Thayer Performed By: Stephanie Rendon RDCS, RVT D/C Instructions Discharge Diet: No restrictions Discharge Activity: Return to Normal Activity Please Follow Up With: Primary care provider When: 07/15/2020 Meaningful Use Info Meaningful Use Diagnoses (Choose all that apply): None applicable Discharge Plan Admission Admit Date/Time: 07/04/20 09:38 Attending Provider: Aidan Pedro Primary Care Provider: Srinivas Thayer Consulting Providers: Tal Hill ; Eric Mccollum ; Humza Gómez Discharge Orders/Prescriptions Prescriptions: New fluconazole 200 mg tablet 200 mg PO DAILY Qty: 7 RF: 0 Continued loperamide 2 MG capsule 2 mg PO BID RF: 0 cholecalciferol (vitamin D3) 1,000 UNIT tablet 1,000 unit PO DAILY RF: 0 tamsulosin 0.4 MG capsule 0.4 mg PO DAILY Qty: 30 RF: 0 hydralazine 50 MG tablet 50 mg PO BID Qty: 60 RF: 0 acetaminophen 325 MG tablet 650 mg PO Q6H PRN PRN (Reason: Pain Score 1-10/Temp > 100.7 F) RF: 0 atorvastatin 10 mg tablet 10 mg PO QHS RF: 0 insulin glargine 100 UNITS/ML insulin pen 10 units SC DAILY RF: 0 Discontinued levofloxacin 250 mg tablet 250 mg PO Q48H Qty: 3 RF: 0 Referrals / Follow Up: Srinivas Thayer MD [Primary Care Provider] - Disposition Disposition (needs filled in before D/C Order can be placed): Home, self care Documented by User: Dr. Aidan Pedro MD 07/09/20 14:33 Providers Date of Admission: 07/04/20 Reason For Visit: FEVER Medications at Discharge Home Medications cholecalciferol (vitamin D3) 1,000 unit PO DAILY 12/08/19 loperamide 2 mg PO BID 12/08/19 hydralazine 50 mg PO BID #60 tablet 05/07/20 tamsulosin 0.4 mg PO DAILY #30 cap 05/07/20 acetaminophen 650 mg PO Q6H PRN PRN tablet 05/25/20 atorvastatin 10 mg PO QHS 07/03/20 insulin glargine 10 units SC DAILY 07/03/20 fluconazole 200 mg PO DAILY #7 tab 07/09/20 Hospital Course Summary of Care Provided Hospital Course: This patient was seen in conjunction with KEVIN Oliva.? I have independently interviewed and examined the patient and reviewed pertinent history, examination findings, laboratory and plan of management.? I have? reviewed the note and agree with the documented findings with the few? additional points. In brief, patient is came to ED for fever, depression 103 Fahrenheit was initially discharged from ER on Levaquin but had persistent fever on antibiotic therefore admitted with clinical diagnosis of sepsis from complicated UTI with history of prostate cancer status post radiotherapy with possibility of scar tissue.? Patient was diagnosed with DEISI on CKD stage III, started on IV Zosyn urologist and golf starter and ranger was consulted.? Patient had cystoscopy on 07/05 and had bilateral ureteric stents and Judd catheter placed.?? 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 Urine culture showed Enterococcus faecalis more than 100,000 colonies, Proteus vulgaris 100,000 colonies and stenotrophomonas [id number] colonies patient had candidemia and seen by ID initially required IV micafungin but transition to fluconazole.? Had SHANNAN did not show vegetation.? ? Kidney function improved to 4.6.? Patient having good urine output. Patient also has anemia of chronic disease and hemoglobin remained stable. Patient also has diabetes mellitus type 2 and sugars are elevated is controlled. I have discussed my assessment with KEVIN Oliva and orders have been reviewed. Physical Exam Narrative Urine output is good. He had venous Doppler in April 2020 was negative for DVT. General: Alert, Oriented x3, Cooperative HEENT: Atraumatic, PERRLA, EOMI, Normocephalic Oral: No Gingival or Mucosal Lesions/ Ulcerations Neck: Supple, No JVD, Negative Carotid Bruits Lungs: Air entry diminished in bilateral lung bases. No crepitation/rhonchi Cardiovascular: Regular rate, Regular Rhythm, Normal S1, Normal S2, No murmurs Abdomen: Bowel Sounds Present, Soft, Non Tender, Non-Distended : Clear urine in the Judd catheter. No renal angle tenderness. No suprapubic tenderness. Extremities: Left leg is more swollen than right leg especially below knee. No palpable inguinal lymphadenopathy Skin: No rashes, No breakdown Musculoskeletal: No Tenderness to Palpation of Joints or Extremities Neurological: Cranial nerves II-XII grossly intact, Deep Tendon Reflexes 2+/4 and Symmetrical, Neuro grossly intact Psych/Mental Status: Normal Affect, Appropriate. ABG / Lab / Microbiology Data Result Diagrams: 07/09/20 05:45 07/09/20 05:45 Discharge Plan Admission Admit Date/Time: 07/04/20 09:38 Attending Provider: Aidan Pedro Primary Care Provider: Srinivas Thayer Consulting Providers: Tal Hill ; Eric Mccollum ; Humza Gómez Discharge Orders/Prescriptions Prescriptions: New fluconazole 200 mg tablet 200 mg PO DAILY Qty: 7 RF: 0 Continued loperamide 2 MG capsule 2 mg PO BID RF: 0 cholecalciferol (vitamin D3) 1,000 UNIT tablet 1,000 unit PO DAILY RF: 0 tamsulosin 0.4 MG capsule 0.4 mg PO DAILY Qty: 30 RF: 0 hydralazine 50 MG tablet 50 mg PO BID Qty: 60 RF: 0 acetaminophen 325 MG tablet 650 mg PO Q6H PRN PRN (Reason: Pain Score 1-10/Temp > 100.7 F) RF: 0 atorvastatin 10 mg tablet 10 mg PO QHS RF: 0 insulin glargine 100 UNITS/ML insulin pen 10 units SC DAILY RF: 0 Discontinued levofloxacin 250 mg tablet 250 mg PO Q48H Qty: 3 RF: 0 Referrals / Follow Up: Srinivas Thayer MD [Primary Care Provider] - Disposition Disposition (needs filled in before D/C Order can be placed): Home, self care Visit Charges Inpatient E&M: 42209 Disch Hosp
[2020-07-09 12:25] LABS: Bedside Glucose 303 mg/dL (70-110)
[2020-07-09] MEDS: Ferrous Sulfate 325 MG Tablet PO (13:08)
--- NOTE | 2020-07-09 13:48 | NURSING ---
educated and pt on leg bag and akers care.
--- NOTE | 2020-07-09 14:18 | PHA.DC.MC ---
Pharmacy Service has performed discharge medication reconciliation and counseling for this patient. 1. FLUCONAZOLE 200MG PO DAILY X 7 DAYS The patient's discharge medication list was reviewed for discrepancies and discrepancies were resolved. This [facility] spoke with KEVIN Park, fluconazole and loperamide are contraindicated due to risk of QTc prolongation. Vladimir would like to hold loperamide while taking fluconazole until cleared by PCP to resume. Patient verbalized understanding. Home Medications cholecalciferol (vitamin D3) 1,000 unit PO DAILY 12/08/19 loperamide 2 mg PO BID 12/08/19 hydralazine 50 mg PO BID #60 tablet 05/07/20 tamsulosin 0.4 mg PO DAILY #30 cap 05/07/20 acetaminophen 650 mg PO Q6H PRN PRN tablet 05/25/20 atorvastatin 10 mg PO QHS 07/03/20 insulin glargine 10 units SC DAILY 07/03/20 fluconazole 200 mg PO DAILY #7 tab 07/09/20 The patient was counseled on the following discharge medications and changes in medications for homegoing were reviewed. The Reason for Use, instructions for use, and potential side effects were reviewed for all new medications. The patient's questions regarding all of their medications were answered. The patient was able to verbally demonstrate an understanding of their discharge medications. Patient counseled by pharmacy operations coordinator, Alok
--- NOTE | 2020-07-10 13:18 | CASEMGMT ---
GOPAL ANDERSON Discharge Follow-Up Phone Call. Bibiana: 15 Strata: 4 Discharge Date: 07/09/20 Adm Dx: Fever Call to pt to inquire about how he has been doing since being discharged from the hospital. He states, Pretty good. He was able to get the new rx/Diflucan and is taking as prescribed. He denies having any questions about it or any of his other medications. He has a f/u appt w/his PCP, Dr Thayer, next Wednesday. He denies having any questions about the discharge instructions and denies any needs/questions/concerns. Brandon KUMAR RN CM
== END 2020-07-09 15:15 | disposition home or self-care (01) | DRG 659 ==
LOC: ED 11:22 → PCU 13:50 → MS3 07-08 18:16
PROVIDERS: Anesthesiology; Urology; Emergency Provider Emergency Medicine; PCP Family Medicine; Visit Provider Internal Medicine
PROC: 0T7D8ZZ Dilation of Urethra, Via Natural or Artificial Opening Endoscopic (ICD-10-PCS; CPT 52276; principal; 2020-07-05 12:55)
DX: T83.518A Infection and inflammatory reaction due to other urinary catheter, initial encounter (principal); B37.7 Candidal sepsis; N13.6 Pyonephrosis; N17.9 Acute kidney failure, unspecified; E87.1 Hypo-osmolality and hyponatremia; N39.0 Urinary tract infection, site not specified; N18.31 Chronic kidney disease, stage 3a; Y84.6 Urinary catheterization as the cause of abnormal reaction of the patient, or of later complication, without mention of misadventure at the time of the procedure; E11.22 Type 2 diabetes mellitus with diabetic chronic kidney disease; B95.2 Enterococcus as the cause of diseases classified elsewhere; D63.8 Anemia in other chronic diseases classified elsewhere; E87.5 Hyperkalemia; N35.919 Unspecified urethral stricture, male, unspecified site; Z85.46 Personal history of malignant neoplasm of prostate; Z92.3 Personal history of irradiation; Z79.899 Other long term (current) drug therapy; Z79.4 Long term (current) use of insulin; Z87.891 Personal history of nicotine dependence; Z85.048 Personal history of other malignant neoplasm of rectum, rectosigmoid junction, and anus; Z87.440 Personal history of urinary (tract) infections
CPT/HCPCS: 36415; 76000; 76770; 80048; 81001; 82570; 82728; 82962; 83036; 83540; 83550; 83605; 84300; 85025; 85610; 85730; 86850; 86900; 86901; 86920; 86922; 87040; 87077; 87086; 87088; 87106; 87186; 87426; 93005; 93306; 93312; 93320; 93325; 97162; 97165; 97530; 97535; 97802; 97803; 99284; 99285; J7030; J7040; J7120; P9016; A4216; C1769; J2405

== ENCOUNTER → 2020-07-24 10:45 | Outpatient (CLI) | payer MEDICARE, SELFPAY ==
[2020-07-05 11:39] VITALS: BMI 24.5
[2020-07-24 12:01] LABS: Absolute Lymphocyte Count 0.84 X10^3/uL (0.83-4.51); Absolute Neutrophil Count 5.6 X10^3/uL (2.0-7.7); Basophil# 0.04 X10^3/uL; Basophil% 0.6 % (0-1); Eosinophil# 0.05 X10^3/uL; Eosinophils% 0.7 % (0-5); Hemoglobin 9.2 g/dL (13.0-16.5); Lymphocyte # 0.84 X10^3/ul (0.83-4.51); Lymphocyte % 11.6 % (19-41); Mean Corp Hgb Conc 30.7 g/dL (32-36); Mean Platelet Vol. 9.2 fl (6.2-12.0); Monocyte# 0.64 X10^3/uL; Monocyte% 8.8 % (0-10); NRBC Flagged by Analyzer 0 % (0-5); Neutrophil % 77.2 % (47-70); Platelet Count 229 K/mm3 (150-450); Red Blood Count 3.41 M/mm3 (4.6-6.2); White Blood Count 7.3 K/mm3 (4.4-11.0)
[2020-07-24 12:25] LABS: Anion Gap 8 (5-15); BUN 33 mg/dL (7-18); BUN/Creat Ratio 14.7 RATIO (10-20); Calcium,Total 9.4 mg/dL (8.5-10.1); Chloride 104 mmol/L (98-107); Creatinine, Serum 2.25 mg/dL (0.70-1.30); EST Glomerular Filtration Rate 30 mL/min (>60); Est Glom Filt Rate - Afr Amer 36 mL/min (>60); Glucose 213 mg/dL (74-106); Potassium 4.2 mmol/L (3.5-5.1); Sodium Level 136 mmol/L (136-145)
== END ==
PROVIDERS: PCP Family Medicine; Referring Provider Family Medicine; Visit Provider Family Medicine
DX: N18.4 Chronic kidney disease, stage 4 (severe) (principal); D64.9 Anemia, unspecified
CPT/HCPCS: 36415; 80048; 85025

== ENCOUNTER → 2020-08-09 12:17 | Outpatient (CLI) | payer MEDICARE, SELFPAY ==
[2020-05-22 15:50] VITALS: BMI 23.1
[2020-07-05 11:39] VITALS: BMI 24.5
--- NOTE | 2020-08-09 13:00 | MRI_ITS ---
STUDY: MRI RIGHT ANKLE WITHOUT CONTRAST REASON FOR EXAM: Male, 79 years old. Achilles tendon tear. TECHNIQUE: Standardized fat and water weighted pulse sequences were obtained in all 3 orthogonal planes. COMPARISON: X-ray dated 03/01/2020. FINDINGS: Diffuse soft tissue swelling with skin thickening. No solid, cystic or lipomatous lesions. Muscle atrophy with muscle edema/myositis (coronal image 25). Mild Achilles tendinosis with small Achilles enthesophyte. Small plantar spur. Mild plantar fascial thickening without acute process. Mild tibiotalar arthrosis. Mild subtalar arthrosis. Mild calcaneocuboid arthrosis. Mild talonavicular arthrosis. Mild/moderate navicular cuneiform joint arthrosis. Mild/moderate tarsometatarsal joint arthrosis. No acute fracture line. No acute dislocation. No acute bone destruction. Minimal reactive bone marrow changes. Mild posterior tibialis tenosynovitis. Minimal flexor tenosynovitis at the master knot of [place]. Mild peroneus longus/brevis tenosynovitis with moderate peroneus brevis tendinosis (axial image 16 series 4). Mild extensor peritendinitis. Chronic syndesmotic ligament thickening (axial image 11 series 4). Partial thickness anterior talofibular ligament chronic tear. Chronic thickening of the posterior talofibular ligament. Normal deltoid ligament. Normal spring ligament. Normal sinus Tarsi/subtalar ligaments. Normal Lisfranc ligament. MRI/Lower Ext Joint Only (Routine) IMPRESSION: Mild Achilles tendinosis with small Achilles enthesophyte Small plantar spur with mild plantar fascial thickening. Mild multitendon tenosynovitis/tendinosis without tendon tear Multiregional chronic ankle sprains with partial ATFL tear Mild/moderate osseous degenerative features, as above Muscle atrophy with muscle edema/myositis Diffuse soft tissue swelling with skin thickening Electronically Signed: Rancho Hernandez DO at 9:56 EDT Tel , Service support ,
== END ==
PROVIDERS: PCP Family Medicine; Referring Provider Podiatrist; Visit Provider Podiatrist
DX: S86.011A Strain of right Achilles tendon, initial encounter (principal)
CPT/HCPCS: 73721

== ENCOUNTER → 2020-08-22 16:21 | Outpatient (CLI) | payer MEDICARE, SELFPAY ==
[2020-07-05 11:39] VITALS: BMI 24.5
[2020-08-22 18:23] LABS: Anion Gap 9 (5-15); BUN 28 mg/dL (7-18); BUN/Creat Ratio 13.8 RATIO (10-20); Calcium,Total 9.2 mg/dL (8.5-10.1); Chloride 103 mmol/L (98-107); Creatinine, Serum 2.03 mg/dL (0.70-1.30); EST Glomerular Filtration Rate 34 mL/min (>60); Est Glom Filt Rate - Afr Amer 41 mL/min (>60); Glucose 150 mg/dL (74-106); Potassium 3.7 mmol/L (3.5-5.1); Sodium Level 139 mmol/L (136-145); Uric Acid 5.2 mg/dL (3.5-7.2)
[2020-08-22 18:29] LABS: Vitamin D,25 Hydroxy 43.3 ng/mL
== END ==
PROVIDERS: PCP Family Medicine; Visit Provider Podiatrist
DX: Z00.00 Encounter for general adult medical examination without abnormal findings (principal); M10.9 Gout, unspecified
CPT/HCPCS: 36415; 80048; 82306; 84550

== ENCOUNTER → 2020-09-11 15:12 | Outpatient (CLI) | payer MEDICARE, SELFPAY ==
[2020-07-05 11:39] VITALS: BMI 24.5
[2020-09-11 17:48] LABS: Anion Gap 8 (5-15); BUN 30 mg/dL (7-18); BUN/Creat Ratio 11.5 RATIO (10-20); Calcium,Total 8.9 mg/dL (8.5-10.1); Chloride 105 mmol/L (98-107); Creatinine, Serum 2.62 mg/dL (0.70-1.30); EST Glomerular Filtration Rate 25 mL/min (>60); Est Glom Filt Rate - Afr Amer 30 mL/min (>60); Glucose 179 mg/dL (74-106); Potassium 4.2 mmol/L (3.5-5.1); Sodium Level 137 mmol/L (136-145)
== END ==
PROVIDERS: PCP Family Medicine; Visit Provider Internal Medicine Nephrology
DX: N18.4 Chronic kidney disease, stage 4 (severe) (principal)
CPT/HCPCS: 36415; 80048

== ENCOUNTER → 2020-09-12 14:56 | Outpatient (CLI) | payer MEDICARE, SELFPAY ==
[2020-07-05 11:39] VITALS: BMI 24.5
[2020-09-12 18:25] LABS: Protein, Urine (Random) 61.4 mg/dL (<11.9); Protein:Creat Ratio 2335 mg/g CRE (0-200)
== END ==
PROVIDERS: PCP Family Medicine; Referring Provider Family Medicine; Visit Provider Internal Medicine Nephrology
DX: N18.4 Chronic kidney disease, stage 4 (severe) (principal)
CPT/HCPCS: 82570; 84156

== ENCOUNTER 2020-09-18 13:10 | Inpatient (IN) | payer MEDICARE, SELFPAY ==
[2020-07-05 11:39] VITALS: BMI 24.5
[2020-09-18] VITALS (11 sets, daily range): BP systolic 120–144; BP diastolic 53–59; PULSE 96–145; RESP 16–36; TEMP 37.7–37.9; O2SAT 96–98; BMI 22.8
--- NOTE | 2020-09-18 13:30 | EKG12_ITS ---
Test Reason : Blood Pressure : / mmHG Vent. Rate : 112 BPM Atrial Rate : 112 BPM P-R Int : 154 ms QRS Dur : 094 ms QT Int : 342 ms P-R-T Axes : 048 006 036 degrees QTc Int : 466 ms Sinus tachycardia Otherwise normal ECG Confirmed by CORNEL MICHELLE, VINICIO ([id number]), web editor TIM BOSE ([id number]) on 09/23/2020 9:08:56 AM Referred By: BIANCA/YARA Confirmed By:JACOB UNGER MD
--- NOTE | 2020-09-18 13:49 | EDS_ITS ---
HPI History of Present Illness Chief Complaint: Fever Informant: patient, spouse/S.O. and family Onset/Context/Timing Onset: Yesterday Context: Gradual Onset Timing: Continuous Current Severity: Mild Maximum Severity: Mild Narrative Narrative: 79-year-old male extensive past medical history including prostate cancer treated with radiation, colorectal surgery for colon cancer with a partial colectomy history of hypertension and insulin-dependent diabetes. In June of this year he had a fungal infection in his blood. Had to be admitted to the hospital. Patient self catheterizes himself. Family states has become very weak in the last 24 hours. Fever as high as 103. They are concerned he might have a urinary tract infection again. He denies nausea or vomiting. He has chronic loose stools from his partial colectomy. Prior similar symptoms: Yes Recent Illness/Hospitalization: No PFSH PFSH Medical History (Updated 09/18/20 @ 16:53 by Araceli Rowan) Anemia Cancer Cancer of prostate Cancer of rectum Chronic kidney disease Current use of insulin Diabetes Former smoker H/O fungal disease Hearing loss, left Hearing loss, right High cholesterol History of immunosuppression therapy Hypertension Kidney disease Osteoporosis Restless legs Self-catheterizes urinary bladder Tendonitis of ankle Wears hearing aid in both ears Home Medications cholecalciferol (vitamin D3) 1,000 unit PO DAILY 12/08/19 [History Last Taken 09/18/20] loperamide 2 mg PO BID 12/08/19 [History Last Taken 09/18/20] hydralazine 50 mg PO BID #60 tablet 05/07/20 [Rx Last Taken 09/18/20] tamsulosin 0.4 mg PO DAILY #30 cap 05/07/20 [Rx Last Taken 09/18/20] atorvastatin 10 mg PO QHS 07/03/20 [History Last Taken 09/17/20] insulin glargine 10 units SC DAILY 07/03/20 [History Last Taken 09/18/20] acetaminophen [Tylenol Extra Strength] 1,000 mg PO DAILY 09/18/20 [History Last Taken 09/18/20] ciprofloxacin HCl 500 mg PO BID 09/18/20 [History Last Taken 09/17/20] diphenhydramine-acetaminophen [Tylenol PM Extra Strength] 2 tab PO QHS PRN 09/18/20 [History Last Taken 09/17/20] Allergy/AdvReac Type Severity Reaction Status Date / Time No Known Allergies Allergy Verified 09/18/20 13:11 Surgical History (Updated 09/18/20 @ 16:52 by Araceli Rowan) H/O partial resection of colon History of renal stent S/P TURP (status post transurethral resection of prostate) Social History Smoking Status: Former smoker ROS ROS ED ROS Narrative Fever. Generalized weakness. Review of Systems ROS Unobtainable: Denies due to encephalopathy Constitutional Constitutional ED: Reports chills and fever(s) Eyes Eyes: Denies change in vision ENT ENT ED: Denies ear pain or sore throat Cardiovascular Cardiovascular: Denies chest pain Respiratory/Chest Respiratory/Chest: Denies cough or dyspnea Gastrointestinal Gastrointestinal: Denies abdominal pain, nausea or vomiting Genitourinary Genitourinary ED: Denies dysuria or hematuria Musculoskeletal Musculoskeletal: Denies arthralgias or myalgias Integumentary Denies rash Neurologic Neurologic: Denies headache(s) Psychiatric Psychiatric: Denies depression Endocrine Endocrinology: Denies polyuria Allergic/Immunologic Allergic/Immunologic ED: Denies urticaria EXAM Physical Exam Narrative Exam Narrative: Elderly male vital signs stable he is tachycardic at 120 and his temperature 100.2. Pulse ox 98% on room air no signs hypoxia. H EENT exam unremarkable. Moist mucous membranes. Neck nontender no lymphadenopathy. Lungs clear to auscultation bilaterally. Heart tachycardic rate about 110 no murmur. Abdomen soft nontender normal bowel sounds no peritoneal signs. Pelvic girdle intact. Moving all 4 extremities. 1+ pitting edema left lower extremity. Back nontender. No CVA tenderness. Neurologically is awake and alert. He is moving all 4 extremities. He is answering questions and following commands. Const Vital Signs: 09/18/20 13:11 09/18/20 14:38 09/18/20 14:44 Temperature 100.2 F H 100 F H Temperature Source Oral Oral Pulse Rate 120 H 103 H Respiratory Rate 16 17 Respiratory Effort Normal Non-Labored Respiratory Pattern Normal Blood Pressure 136/53 H 133/55 H Blood Pressure Mean 80 81 Pulse Ox 98 96 Oxygen Delivery Method Room Air Room Air 09/18/20 14:57 09/18/20 15:00 09/18/20 16:00 Temperature 100 F H 100 F H 99.9 F H Temperature Source Oral Oral Oral Pulse Rate 96 145 H Respiratory Rate 16 36 H Respiratory Effort Respiratory Pattern Blood Pressure 131/59 H 120/55 L Blood Pressure Mean 83 76 Pulse Ox 97 96 Oxygen Delivery Method Room Air Room Air 09/18/20 17:00 Temperature 99.8 F H Temperature Source Oral Pulse Rate 121 H Respiratory Rate 21 H Respiratory Effort Respiratory Pattern Blood Pressure 137/58 H Blood Pressure Mean 84 Pulse Ox 97 Oxygen Delivery Method Room Air Positive well nourished and well developed; Negative for cachectic, contractures or unkempt General Appearance ED: well developed and NAD; Negative for unkempt, cachectic, contractures or pallor Nutritional Appearance: Negative for cachectic HEENT Reports moist mucous membranes Negative for trauma or tenderness Eyes PERRL and EOMs intact bilaterally Neck no lymphadenopathy, supple and no JVD General: Negative for tenderness Chest Wall inspection of chest normal and palpation of chest normal Resp normal respiratory effort and clear to auscultation bilaterally Effort and Inspection: Negative for pain with movement Auscultation: Negative for rales, rhonchi or wheezes Cardio regular rhythm, S1 normal heart sound, S2 normal heart sound and no murmurs Rate: tachycardic GI normal to inspection, nondistended, normoactive bowel sounds, non-tender, non- distended and no masses Inspection: Negative for abdominal distention Auscultation: normoactive bowel sounds Palpation: soft; Negative for tender, guarding or rebound tenderness present Back/Spine no CVA tenderness General Back: Negative for CVA tenderness Extremity normal to inspection Extremity Narrative: He does have pitting edema of the left lower extremity failing stocking exam the denies edema 1 or the other. No history of DVTs General Extremety ED: Yes edema; Negative for tenderness General Extremity: edema Neuro oriented x3 Sensorium / Orientation: alert Motor Exam: strength 5/5 throughout Psych mental status grossly normal Appearance: Negative for unkempt Skin no rashes or lesions noted, no wounds and skin turgor normal General Skin Exam: Negative for jaundice or pallor MDM MDM MDM Narrative Medical decision making narrative: Male with a fever and generalized weakness concerning for possible sepsis. Going through the sepsis protocol work-up. Receive IV fluids IV and Tylenol. Return repeat exam patient is resting comfortably. Dr. Robb awaiting the urinalysis. Of the hospitalist on page for admission. I think this is sepsis. There is a concern that possibly this could be a fungal infection which has had before which will need further investigation. He is currently on parenteral IV antibiotics both Zosyn and vancomycin. Patient doing well on repeat exam at 5:15 PM. Hospitalist team has been down evaluating and writing his admission orders. Lab Data Attestation: I reviewed the patient's lab results. Lab results narrative: INR 1.2. Electrolytes show a sodium 133. Gap of 13. BUN of 50 creatinine 4.87 is a history of renal insufficiency. Liver enzymes unremarkable.Lactic acid 1.9. Chest x-ray no signs of pneumonia. White count 12.5. Hemoglobin 8.4.Lactic acid 1.9. Labs: Laboratory Results - last 24 hr 09/18/20 09/18/20 09/18/20 14:55 14:55 14:55 WBC Cancelled Corrected WBC Cancelled RBC Cancelled Hgb Cancelled Hct Cancelled MCV Cancelled MCH Cancelled MCHC Cancelled RDW Std Deviation Cancelled RDW Coeff of Darian Cancelled Plt Count Cancelled MPV Cancelled Immature Gran % (Auto) Cancelled Neut % (Auto) Cancelled Lymph % (Auto) Cancelled Hamlin % (Auto) Cancelled Eos % (Auto) Cancelled Baso % (Auto) Cancelled Absolute Neuts (auto) Cancelled Absolute Lymphs (auto) Cancelled Total Counted Cancelled Neutrophils % (Manual) Cancelled Band Neutrophils % Cancelled Lymphocytes % (Manual) Cancelled Monocytes % (Manual) Cancelled Eosinophils % (Manual) Cancelled Basophils % (Manual) Cancelled Metamyelocytes % Cancelled Myelocytes % Cancelled Promyelocytes % Cancelled Blast Cells % Cancelled Plasma Cell % (Manual) Cancelled Other Cells % Cancelled Nucleated RBC % Cancelled Nucleated RBCs/100 WBC Cancelled Differential Comment Cancelled Diff Path Review Cancelled Hypersegmented Neuts Cancelled Atypical Lymphocytes Cancelled Reactive Lymphocytes Cancelled Smudge Cells Cancelled Toxic Granulation Cancelled Toxic Vacuolation Cancelled Dohle Bodies Cancelled Sue Rods Cancelled Platelet Estimate Cancelled Plt Morphology Comment Cancelled RBC Morphology Cancelled Polychromasia Cancelled Hypochromasia Cancelled Poikilocytosis Cancelled Basophilic Stippling Cancelled Anisocytosis Cancelled Microcytosis Cancelled Macrocytosis Cancelled Spherocytes Cancelled Sickle Cells Cancelled Target Cells Cancelled Tear Drop Cells Cancelled Ovalocytes Cancelled Stomatocytes Cancelled [place] Bodies Cancelled Betty Cells Cancelled Bite Cells Cancelled Crenated Cell Cancelled Acanthocytes (Spur) Cancelled Rouleaux Cancelled Schistocytes Cancelled PT 14.8 INR 1.2 APTT 23.3 L Sodium 133 L Potassium 4.3 Chloride 99 Carbon Dioxide 21.0 Anion Gap 13 BUN 50 H Creatinine 4.87 H Estim Creat Clear Calc 11.84 Est GFR (MDRD) Af Amer 15 L Est GFR (MDRD) Non-Af 12 L BUN/Creatinine Ratio 10.3 Glucose 179 H Lactic Acid Calcium 8.5 Total Bilirubin 0.50 AST 18 ALT 16 Alkaline Phosphatase 228 H Total Protein 7.7 Albumin 2.9 L Globulin 4.8 H Albumin/Globulin Ratio 0.6 L Urine Color Urine Clarity Urine pH Ur Specific [place] Urine Protein Urine Glucose (UA) Urine Ketones Urine Occult Blood Urine Nitrite Urine Bilirubin Urine Urobilinogen Ur Leukocyte Esterase Urine RBC Urine WBC Ur Squamous Epith Cells Urine Bacteria Urine Mucus 09/18/20 09/18/20 09/18/20 14:55 16:05 16:30 WBC 12.5 H Corrected WBC RBC 3.06 L Hgb 8.4 L Hct 26.5 L MCV 86.6 MCH 27.5 MCHC 31.7 L RDW Std Deviation 43.6 RDW Coeff of Darian 13.9 Plt Count 161 MPV 8.7 Immature Gran % (Auto) 0.600 Neut % (Auto) 96.4 H Lymph % (Auto) 1.4 L [place] % (Auto) 1.5 Eos % (Auto) 0.0 Baso % (Auto) 0.1 Absolute Neuts (auto) 12.0 H Absolute Lymphs (auto) 0.18 L Total Counted Neutrophils % (Manual) Band Neutrophils % Lymphocytes % (Manual) Monocytes % (Manual) Eosinophils % (Manual) Basophils % (Manual) Metamyelocytes % Myelocytes % Promyelocytes % Blast Cells % Plasma Cell % (Manual) Other Cells % Nucleated RBC % 0 Nucleated RBCs/100 WBC Differential Comment SCANNED Diff Path Review Hypersegmented Neuts Atypical Lymphocytes Reactive Lymphocytes Smudge Cells Toxic Granulation Toxic Vacuolation Dohle Bodies Sue Rods Platelet Estimate Plt Morphology Comment RBC Morphology Polychromasia Hypochromasia Poikilocytosis Basophilic Stippling Anisocytosis Microcytosis Macrocytosis Spherocytes Sickle Cells Target Cells Tear Drop Cells Ovalocytes Stomatocytes Salazar[place] Bodies Betty Cells Bite Cells Crenated Cell Acanthocytes (Spur) Rouleaux Schistocytes PT INR APTT Sodium Potassium Chloride Carbon Dioxide Anion Gap BUN Creatinine Estim Creat Clear Calc Est GFR (MDRD) Af Amer Est GFR (MDRD) Non-Af BUN/Creatinine Ratio Glucose Lactic Acid 1.9 Calcium Total Bilirubin AST ALT Alkaline Phosphatase Total Protein Albumin Globulin Albumin/Globulin Ratio Urine Color Yellow Urine Clarity Cloudy Urine pH 7.0 Ur Specific [place] 1.010 Urine Protein 500 H Urine Glucose (UA) Normal Urine Ketones Negative Urine Occult Blood 250 H Urine Nitrite Negative Urine Bilirubin Negative Urine Urobilinogen Normal Ur Leukocyte Esterase 500 H Urine RBC > 100 SEEN Urine WBC 10-25 SEEN Ur Squamous Epith Cells 0 SEEN Urine Bacteria 0 SEEN Urine Mucus 0 SEEN Radiography Chest X-Ray - ED: 1 View, Read by ED Physician, Read by Radiologist, Heart, Lungs, Mediastinum, Bony Structures, No Acute Disease and Chronic Changes Diagnostic Testing: Radiology Impression Chest X-Ray 09/18/20 15:02 IMPRESSION: No acute abnormality is seen. Electronically Signed: Michael Cormier MD at 15:21 EDT , Service support , No signs of pneumonia no infiltrate. Interpreted by me and the radiologist. Rhythm Strip Rhythm Strip: Sinus Tach Rate: 112 Ectopy: None EKG Initial EKG: Attestation: I personally reviewed and interpreted this EKG as follows: Interpretation: Sinus Rhythm, No Acute Injury Pattern and Sinus Tachycardia Comments: Sinus tachycardia rate of 112. No change from prior EKG from June. Discharge Plan Dx/Rx/DC Orders Clinical Impression: Sepsis, Fever, Acute on chronic renal insufficiency, Anemia due to chronic kidney disease Disposition Disposition: [facility]
[2020-09-18] MEDS: Acetaminophen 500 MG Tablet 1000 MG PO (14:55)
[2020-09-18] MEDS: 0.9% Normal Saline 1,000 ML 999 ML IV (14:56)
--- NOTE | 2020-09-18 15:02 | RAD_ITS ---
STUDY: X-RAY CHEST REASON FOR EXAM: Male, 79 years old. Fever, weakness and chills. TECHNIQUE: Single AP portable view of the chest. COMPARISON: Comparison is made with prior examination dated 05/22/2020. FINDINGS: EKG electrodes are seen. The lungs are clear and expanded. There is no demonstrated pleural abnormality. Normal size heart. Normal mediastinum and chinedu. Normal visualized pulmonary arteries. There is atherosclerotic tortuosity of the aortic arch and descending thoracic aorta. There are diffuse degenerative changes of the visualized thoracic spine. There is degenerative osteoarthritis of the bilateral shoulders. There is no demonstrated abnormality of the visualized soft tissue structures of the upper abdomen. RAD/Chest 1 View (Portable) IMPRESSION: No acute abnormality is seen. Electronically Signed: Michael Cormier MD at 15:21 EDT , Service support ,
--- NOTE | 2020-09-18 15:23 | ED.RN ---
ATB ADMINISTERED LATE DUE TO PT BEING DIFFICULT IV START.
[2020-09-18 15:26] LABS: International Normalized Ratio 1.2; Prothrombin Time (Protime)PT. 14.8 SECONDS (11.7-14.9)
[2020-09-18 15:27] LABS: Partial Thromboplast Time 23.3 Seconds (24.1-36.2)
[2020-09-18 15:34] LABS: ALB/GLOB Ratio 0.6 RATIO (0.9-2.4); AST(SGOT) 18 U/L (15-37); Alanine Aminotransfer ALT/SGPT 16 U/L (16-61); Albumin, Serum 2.9 g/dL (3.2-5.0); Alkaline Phosphatase 228 U/L (45-117); Anion Gap 13 (5-15); BUN 50 mg/dL (7-18); BUN/Creat Ratio 10.3 RATIO (10-20); Calcium,Total 8.5 mg/dL (8.5-10.1); Chloride 99 mmol/L (98-107); Creatinine, Serum 4.87 mg/dL (0.70-1.30); EST Glomerular Filtration Rate 12 mL/min (>60); Est Glom Filt Rate - Afr Amer 15 mL/min (>60); Estimated Creatinine Clearance 11.84 ml/min; Globulin 4.8 g/dL (2.2-4.2); Glucose 179 mg/dL (74-106); Potassium 4.3 mmol/L (3.5-5.1); Protein, Total 7.7 g/dL (6.4-8.2); Sodium Level 133 mmol/L (136-145)
[2020-09-18 15:44] LABS: Lactic Acid 1.9 mmol/L (0.4-1.9)
[2020-09-18 16:14] LABS: Absolute Lymphocyte Count 0.18 X10^3/uL (0.83-4.51); Basophil# 0.01 X10^3/uL; Basophil% 0.1 % (0-1); Hematocrit 26.5 % (40-54); Hemoglobin 8.4 g/dL (13.0-16.5); Lymphocyte # 0.18 X10^3/ul (0.83-4.51); Lymphocyte % 1.4 % (19-41); Mean Corp Hgb Conc 31.7 g/dL (32-36); Mean Corpuscular Hgb 27.5 pg (27.0-32.0); Mean Corpuscular Volume 86.6 fL (80-94); Mean Platelet Vol. 8.7 fl (6.2-12.0); Monocyte# 0.19 X10^3/uL; Monocyte% 1.5 % (0-10); NRBC Flagged by Analyzer 0 % (0-5); Neutrophil # 12.03 X10^3/uL (2.7-7.7); Neutrophil % 96.4 % (47-70); POSITIVE DIFFERENTIAL YES; Platelet Count 161 K/mm3 (150-450); RBC Distribution Width CV 13.9 % (11.6-14.6); RBC Distribution Width SD 43.6 fl (35.1-43.9); Red Blood Count 3.06 M/mm3 (4.6-6.2); White Blood Count 12.5 K/mm3 (4.4-11.0)
[2020-09-18 16:19] LABS: Differential Indicated SCAN CRITERIA MET
[2020-09-18 16:43] LABS: Bacteria 0 SEEN /hpf (None Seen); Mucous, Urine 0 SEEN /hpf (<or=2+); Squamous Epithelial Cells - UA 0 SEEN /hpf (0-5)
[2020-09-18 16:47] LABS: Color, Urine Yellow (Yellow); Glucose, Dipstick Normal (Normal); Ketone-Dipstick Negative (Negative); Leukocyte Esterase-Dipstick 500 /ul (Negative); Nitrite-Dipstick Negative (Negative); Occult Blood-Urine 250 /ul (Negative); Protein-Dipstick 500 mg/dl (Negative); Urine Bilirubin Dipstick Negative (Negative); Urine Clarity Cloudy (Clear); Urine Urobilinogen Normal (Normal)
[2020-09-18 17:00] LABS: Red Blood Cells-Urine > 100 SEEN /hpf (0-5); White Blood Cells 10-25 SEEN /hpf (0-5)
[2020-09-18 17:04] LABS: Differential Comment SCANNED
--- NOTE | 2020-09-18 17:29 | HP.PCM_ITS ---
Documented by User: LANEY Jaquez 09/18/20 17:49 HPI - General General Date of Admission: 09/18/20 Date of Service: 09/18/20 Chief Complaint: Fever HPI Narrative ALEA SALGADO, is a 79 M who presents with complaints of fever and weakness. Patient states that over the past 24 hours he has become very weak and has had a fever as high as 103. Family is concerned that he has become so weak so quickly and is concerned that he has a fungal infection again which she was treated for in April of this year. Patient denies chest pain, shortness of breath, cough, nausea, vomiting. Patient reports diarrhea but states that this is chronic for him following a partial colectomy for colorectal cancer. [facility] Medical History Anemia Cancer Cancer of prostate Cancer of rectum Chronic kidney disease Current use of insulin Diabetes Former smoker H/O fungal disease Hearing loss, left Hearing loss, right High cholesterol History of immunosuppression therapy Hypertension Kidney disease Osteoporosis Restless legs Self-catheterizes urinary bladder Tendonitis of ankle Wears hearing aid in both ears Home Medications cholecalciferol (vitamin D3) 1,000 unit PO DAILY 12/08/19 [History Last Taken 09/18/20] loperamide 2 mg PO BID 12/08/19 [History Last Taken 09/18/20] hydralazine 50 mg PO BID #60 tablet 05/07/20 [Rx Last Taken 09/18/20] tamsulosin 0.4 mg PO DAILY #30 cap 05/07/20 [Rx Last Taken 09/18/20] atorvastatin 10 mg PO QHS 07/03/20 [History Last Taken 09/17/20] insulin glargine 10 units SC DAILY 07/03/20 [History Last Taken 09/18/20] acetaminophen [Tylenol Extra Strength] 1,000 mg PO DAILY 09/18/20 [History Last Taken 09/18/20] ciprofloxacin HCl 500 mg PO BID 09/18/20 [History Last Taken 09/17/20] diphenhydramine-acetaminophen [Tylenol PM Extra Strength] 2 tab PO QHS PRN 09/18/20 [History Last Taken 09/17/20] Allergy/AdvReac Type Severity Reaction Status Date / Time No Known Allergies Allergy Verified 09/18/20 13:11 Family History (Updated 09/18/20 @ 17:32 by LANEY Jaquez) Mother Diabetes Father CVA (cerebral vascular accident) Sister Heart disease Brother Heart disease Surgical History H/O partial resection of colon History of renal stent S/P TURP (status post transurethral resection of prostate) Social History (Updated 09/18/20 @ 17:32 by LANEY Jaquez) Smoking Status: Former smoker alcohol intake: never substance use type: does not use ROS Constitutional Constitutional: Reports chills, fatigue, fever(s) and weakness; Denies anorexia Cardiovascular Cardiovascular: Denies chest pain, edema or palpitations Respiratory/Chest Respiratory/Chest: Denies cough, shortness of breath at rest or shortness of breath with exertion Gastrointestinal Gastrointestinal: Reports diarrhea; Denies abdominal pain, constipation, nausea or vomiting Genitourinary Genitourinary: Reports other Details: Patient self caths, reports no change in c onsistency of urine Musculoskeletal Musculoskeletal: Reports joint pain; Denies back pain, extremity pain, joint stiffness or joint swelling Integumentary Integumentary: Denies dry skin Neurologic Neurologic: Denies abnormal gait, abnormal speech, confusion, dizziness or focal weakness Psychiatric Psychiatric: Denies anxiety or depression Endocrine Endocrinology: Denies change in body appearance Hematologic/Lymphatic Hematologic/Lymphatic: Denies easy bleeding or easy bruising Vital Signs Vital Signs Vital Signs: 09/18/20 13:11 09/18/20 14:38 09/18/20 14:44 Temperature 100.2 F H 100 F H Temperature Source Oral Oral Pulse Rate 120 H 103 H Respiratory Rate 16 17 Respiratory Effort Normal Non-Labored Respiratory Pattern Normal Blood Pressure 136/53 H 133/55 H Blood Pressure Mean 80 81 Pulse Ox 98 96 Oxygen Delivery Method Room Air Room Air 09/18/20 14:57 09/18/20 15:00 09/18/20 16:00 Temperature 100 F H 100 F H 99.9 F H Temperature Source Oral Oral Oral Pulse Rate 96 145 H Respiratory Rate 16 36 H Respiratory Effort Respiratory Pattern Blood Pressure 131/59 H 120/55 L Blood Pressure Mean 83 76 Pulse Ox 97 96 Oxygen Delivery Method Room Air Room Air 09/18/20 17:00 Temperature 99.8 F H Temperature Source Oral Pulse Rate 121 H Respiratory Rate 21 H Respiratory Effort Respiratory Pattern Blood Pressure 137/58 H Blood Pressure Mean 84 Pulse Ox 97 Oxygen Delivery Method Room Air Weight Weight: 150 lb Body Mass Index (BMI) 22.8 Physical Exam Const alert and oriented x3 General Appearance: cooperative and ill appearing Positive for acutely HEENT normocephalic and head/scalp atraumatic Eyes conjunctivae normal and no scleral icterus Neck supple and no JVD General: trachea midline Resp normal respiratory effort, normal air movement and clear to auscultation bilaterally Cardio regular rate, regular rhythm, S1 normal heart sound and S2 normal heart sound Rate: tachycardic Extremity normal capillary refill and no clubbing, cyanosis or edema General Extremity: no tenderness to palpation of joints or extremities Right Lower Extremity: ankle joint ROM (Patient has a partially torn tendon, complains of pain to this area) Skin General Skin Exam: no breakdown and turgor normal Lesions: no lesions Rashes: no rashes Neuro no focal motor deficits and no sensory deficits noted Speech: speech normal Motor Exam: general weakness Psych thought process normal, cooperative and affect normal Appearance: appropriate Results Lab / Micro Data Result Diagrams: 09/18/20 16:05 09/18/20 14:55 Labs: Laboratory Results - last 24 hr 09/18/20 14:55: WBC Cancelled, Corrected WBC Cancelled, RBC Cancelled, Hgb Cancelled, Hct Cancelled, MCV Cancelled, MCH Cancelled, MCHC Cancelled, RDW Std Deviation Cancelled, RDW Coeff of Darian Cancelled, Plt Count Cancelled, MPV Cancelled, Immature Gran % (Auto) Cancelled, Neut % (Auto) Cancelled, Lymph % (Auto) Cancelled, [place] % (Auto) Cancelled, Eos % (Auto) Cancelled, Baso % (Auto) Cancelled, Absolute Neuts (auto) Cancelled, Absolute Lymphs (auto) Cancelled, Total Counted Cancelled, Neutrophils % (Manual) Cancelled, Band Neutrophils % Cancelled, Lymphocytes % (Manual) Cancelled, Monocytes % (Manual) Cancelled, Eosinophils % (Manual) Cancelled, Basophils % (Manual) Cancelled, Metamyelocytes % Cancelled, Myelocytes % Cancelled, Promyelocytes % Cancelled, Blast Cells % Cancelled, Plasma Cell % (Manual) Cancelled, Other Cells % Cancelled, Nucleated RBC % Cancelled, Nucleated RBCs/100 WBC Cancelled, Differential Comment Cancelled, Diff Path Review Cancelled, Hypersegmented Neuts Cancelled, Atypical Lymphocytes Cancelled, Reactive Lymphocytes Cancelled, Smudge Cells Cancelled, Toxic Granulation Cancelled, Toxic Vacuolation Cancelled, Dohle Bodies Cancelled, Sue Rods Cancelled, Platelet Estimate Cancelled, Plt Morphology Comment Cancelled, RBC Morphology Cancelled, Polychromasia Cancelled, Hypochromasia Cancelled, Poikilocytosis Cancelled, Basophilic Stippling Cancelled, Anisocytosis Cancelled, Microcytosis Cancelled, Macrocytosis Cancelled, Spherocytes Cancelled, Sickle Cells Cancelled, Target Cells Cancelled, Tear Drop Cells Cancelled, Ovalocytes Cancelled, Stomatocytes Cancelled, [place] Bodies Cancelled, [place] Cells Cancelled, Bite Cells Cancelled, Crenated Cell Cancelled, Acanthocytes (Spur) Cancelled, Rouleaux Cancelled, Schistocytes Cancelled 09/18/20 14:55: PT 14.8, INR 1.2, APTT 23.3 L 09/18/20 14:55: Sodium 133 L, Potassium 4.3, Chloride 99, Carbon Dioxide 21.0, Anion Gap 13, BUN 50 H, Creatinine 4.87 H, Estim Creat Clear Calc 11.84, Est GFR (MDRD) Af Amer 15 L, Est GFR (MDRD) Non-Af 12 L, BUN/Creatinine Ratio 10.3, Glucose 179 H, Calcium 8.5, Total Bilirubin 0.50, AST 18, ALT 16, Alkaline Phosphatase 228 H, Total Protein 7.7, Albumin 2.9 L, Globulin 4.8 H, Albumin/Globulin Ratio 0.6 L 09/18/20 14:55: Lactic Acid 1.9 09/18/20 16:05: WBC 12.5 H, RBC 3.06 L, Hgb 8.4 L, Hct 26.5 L, MCV 86.6, MCH 27.5, MCHC 31.7 L, RDW Std Deviation 43.6, RDW Coeff of [place] 13.9, Plt Count 161, MPV 8.7, Immature Gran % (Auto) 0.600, Neut % (Auto) 96.4 H, Lymph % (Auto) 1.4 L, [place] % (Auto) 1.5, Eos % (Auto) 0.0, Baso % (Auto) 0.1, Absolute Neuts (auto) 12.0 H, Absolute Lymphs (auto) 0.18 L, Nucleated RBC % 0, Differential Comment SCANNED 09/18/20 16:30: Urine Color Yellow, Urine Clarity Cloudy, Urine pH 7.0, Ur Specific [place] 1.010, Urine Protein 500 H, Urine Glucose (UA) Normal, Urine Ketones Negative, Urine Occult Blood 250 H, Urine Nitrite Negative, Urine Bilirubin Negative, Urine Urobilinogen Normal, Ur Leukocyte Esterase 500 H, Urine RBC > 100 SEEN, Urine WBC 10-25 SEEN, Ur Squamous Epith Cells 0 SEEN, Urine Bacteria 0 SEEN, Urine Mucus 0 SEEN Micro: Microbiology 09/18/20 15:00 Interface Orders SARS-CoV-2 Antigen (Rapid) - Final Rhythm Strip Rhythm Strip: Sinus Tach Rate: 112 Ectopy: None Radiology Impression Chest X-Ray 09/18/20 15:02 IMPRESSION: No acute abnormality is seen. Electronically Signed: Michael Cormier MD at 15:21 EDT , Service support , Assessment & Plan Assessment/Plan (1) Complicated acute cystitis: (2) Recent DEISI on CKD: (3) Sepsis: QUALIFIERS: Sepsis acute organ dysfunction status: unspecified Sepsis type: sepsis due to unspecified organism Qualified Code(s): A41.9 - Sepsis, unspecified organism PLAN: 1. Sepsis secondary to complicated acute cystitis -Admit to PCU for cardiac monitoring due to tachycardia -Patient was admitted in June 2020 with UTI and was found to have bacteria and fungal coinfection. Due to this we will consult Dr. Mccollum who advised to start patient on micafungin IV x1 along with broad-spectrum antibiotic coverage. Patient received Zosyn and vancomycin in ER, will continue Zosyn. -IV fluid 100 ml/hr, patient received 1 L bolus in ER -Vital signs currently stable, vital signs per protocol ordered, trend BP and heart rate -Urine culture and blood cultures pending -CBC and CMP daily, white blood cell count currently 12,500, trend -Strict intake and output with daily weights -OT and PT to eval and treat 2. Acute kidney injury superimposed on chronic kidney disease stage IIIb -Will trend BUN and creatinine with daily CMP, patient not currently on dialysis -Secondary to infection, antibiotics and antifungals initiated -Fluid resuscitation with IV normal saline 100 ml/hr -If kidneys do not respond to fluid resuscitation would consider consulting nephrology. 3. Hypertension -Blood pressure currently well controlled, will continue home dose of hydralazi ne. -Vital signs per protocol, trend BP and heart rate -Cardiac calorie controlled diet ordered 4. Diabetes mellitus -Will continue Lantus 10 units subcu daily -AC at bedtime with sliding scale blood sugars ordered -Cardiac calorie controlled diet ordered 5. History of prostate cancer -Patient currently self caths at home, urinary catheter placed in ER, will continue -Continue tamsulosin 6. History of colorectal cancer with partial colectomy -Continue daily loperamide for loose stools DVT prophylaxis-subcu heparin and SCDs This patient was seen by LANEY Jaquez under the supervision of Dr. Craft. Documented by User: Dr. Serafin Craft, 09/18/20 19:45 HPI - General General Date of Admission: 09/18/20 [facility] Medical History Anemia Cancer Cancer of prostate Cancer of rectum Chronic kidney disease Current use of insulin Diabetes Former smoker H/O fungal disease Hearing loss, left Hearing loss, right High cholesterol History of immunosuppression therapy Hypertension Kidney disease Osteoporosis Restless legs Self-catheterizes urinary bladder Tendonitis of ankle Wears hearing aid in both ears Home Medications cholecalciferol (vitamin D3) 1,000 unit PO DAILY 12/08/19 [History Last Taken 09/18/20] loperamide 2 mg PO BID 12/08/19 [History Last Taken 09/18/20] hydralazine 50 mg PO BID #60 tablet 05/07/20 [Rx Last Taken 09/18/20] tamsulosin 0.4 mg PO DAILY #30 cap 05/07/20 [Rx Last Taken 09/18/20] atorvastatin 10 mg PO QHS 07/03/20 [History Last Taken 09/17/20] insulin glargine 10 units SC DAILY 07/03/20 [History Last Taken 09/18/20] acetaminophen [Tylenol Extra Strength] 1,000 mg PO DAILY 09/18/20 [History Last Taken 09/18/20] ciprofloxacin HCl 500 mg PO BID 09/18/20 [History Last Taken 09/17/20] diphenhydramine-acetaminophen [Tylenol PM Extra Strength] 2 tab PO QHS PRN 09/18/20 [History Last Taken 09/17/20] Allergy/AdvReac Type Severity Reaction Status Date / Time No Known Allergies Allergy Verified 09/18/20 13:11 Family History (Updated 09/18/20 @ 17:32 by LANEY Jaquez) Mother Diabetes Father CVA (cerebral vascular accident) Sister Heart disease Brother Heart disease Surgical History H/O partial resection of colon History of renal stent S/P TURP (status post transurethral resection of prostate) Social History (Updated 09/18/20 @ 17:32 by RYDER JaquezC) Smoking Status: Former smoker alcohol intake: never substance use type: does not use Results Lab / Micro Data Result Diagrams: 09/18/20 16:05 09/18/20 14:55 Charges/Coding Addendum Addendum: Patient was seen and examined today independently of Nolvia Peck, he came to the ER at [facility] for evaluation of fever and generalized weakness. Work-up in the emergency room revealed his creatinine to be elevated, white blood cell count was elevated at 12.5, hemoglobin was 8.4. Urinalysis showed more than 100 RBCs, 10-25 WBCs. Patient was tachycardic and febrile, his respiratory rate was increased. On examination he appeared his stated age. Vital signs as documented. Skin warm and dry and without overt rashes. Neck without JVD, neck was supple, trachea midline, thyroid was normal. Lungs clear bilaterally, normal air movement was noted. Heart exam notable for regular rhythm, normal sounds and absence of murmurs, rubs or gallops. Abdomen unremarkable and without evidence of organomegaly, masses, or abdominal aortic enlargement. Bowel sounds are present, abdomen is not distended. Extremities nonedematous, no cyanosis was noted, no clubbing was noted. Neuro: Cranial nerves II through XII are grossly intact, no focal motor deficits were noted, sensation to light touch and pinprick intact, motor exam 5/5 throughout. Psych: Patient is alert and oriented x3, he does not appear anxious or depressed, he does not appear agitated. Patient will be admitted to PCU for sepsis secondary to acute cystitis, he has a history of fungemia in June 2020, I contacted infectious diseases and discussed the case with them, they will see the patient in consultation tomorrow, in the meantime he will receive IV micafungin and Zosyn, he was given 1 dose of vancomycin by the emergency room physician today. Patient will be given IV fluids and labs will be monitored. I have reviewed Nolvia Liv's history and physical including her medical assessment and plan of care and endorse it. Visit Charges Inpatient E&M: 98672 Init Hosp L3
[2020-09-18] MEDS: 0.9% Normal Saline 1,000 ML 100 ML IV (18:37)
[2020-09-18] MEDS: Heparin Injection (Vial) 5,000 UNIT/ML VIAL 5000 UNIT SC (21:51)
[2020-09-18] MEDS: hydrALAZINE 50 MG Tablet PO (21:51)
[2020-09-18] MEDS: Loperamide 2 MG Capsule PO (21:51)
[2020-09-18] MEDS: Atorvastatin Calcium 10 MG Tablet PO (21:51)
[2020-09-18 23:31] LABS: Bedside Glucose 100 mg/dL (70-110)
[2020-09-19] VITALS (16 sets, daily range): BP systolic 97–152; BP diastolic 56–77; PULSE 90–154; RESP 16–26; TEMP 37.1–38.8; O2SAT 94–98
[2020-09-19] MEDS: 0.9% Normal Saline 1,000 ML 100 ML IV ×2 (04:42→16:25)
[2020-09-19 06:10] LABS: Absolute Lymphocyte Count 0.33 X10^3/uL (0.83-4.51); Basophil# 0.01 X10^3/uL; Basophil% 0.1 % (0-1); Hemoglobin 7.7 g/dL (13.0-16.5); Lymphocyte # 0.33 X10^3/ul (0.83-4.51); Lymphocyte % 2.3 % (19-41); Mean Corp Hgb Conc 32.1 g/dL (32-36); Mean Corpuscular Hgb 27.3 pg (27.0-32.0); Mean Corpuscular Volume 85.1 fL (80-94); Mean Platelet Vol. 9.1 fl (6.2-12.0); Monocyte# 0.78 X10^3/uL; Monocyte% 5.5 % (0-10); NRBC Flagged by Analyzer 0 % (0-5); Neutrophil # 13.04 X10^3/uL (2.7-7.7); Neutrophil % 91.5 % (47-70); POSITIVE DIFFERENTIAL YES; Platelet Count 120 K/mm3 (150-450); RBC Distribution Width CV 13.9 % (11.6-14.6); RBC Distribution Width SD 43.3 fl (35.1-43.9); Red Blood Count 2.82 M/mm3 (4.6-6.2); White Blood Count 14.3 K/mm3 (4.4-11.0)
[2020-09-19 06:23] LABS: Differential Indicated SCAN CRITERIA MET
[2020-09-19 06:45] LABS: ALB/GLOB Ratio 0.5 RATIO (0.9-2.4); AST(SGOT) 42 U/L (15-37); Alanine Aminotransfer ALT/SGPT 30 U/L (16-61); Alkaline Phosphatase 254 U/L (45-117); Anion Gap 10 (5-15); BUN 57 mg/dL (7-18); Calcium,Total 7.8 mg/dL (8.5-10.1); Chloride 104 mmol/L (98-107); EST Glomerular Filtration Rate 10 mL/min (>60); Est Glom Filt Rate - Afr Amer 12 mL/min (>60); Estimated Creatinine Clearance 10.17 ml/min; Globulin 3.7 g/dL (2.2-4.2); Glucose 92 mg/dL (74-106); Potassium 4.4 mmol/L (3.5-5.1); Protein, Total 5.7 g/dL (6.4-8.2); Sodium Level 134 mmol/L (136-145)
[2020-09-19 06:55] LABS: Bedside Glucose 96 mg/dL (70-110)
[2020-09-19] MEDS: Tamsulosin HCl 0.4 MG Capsule PO (09:42)
[2020-09-19] MEDS: Acetaminophen 500 MG Tablet 1000 MG PO (09:42)
[2020-09-19] MEDS: Heparin Injection (Vial) 5,000 UNIT/ML VIAL 5000 UNIT SC ×2 (09:42→20:48)
[2020-09-19] MEDS: Loperamide 2 MG Capsule PO ×2 (09:42→20:47)
[2020-09-19] MEDS: Cholecalciferol (VIT D3) 25 MCG TABLET (1,000 UNITS) PO (09:43)
--- NOTE | 2020-09-19 10:45 | CASEMGMT ---
RN MONICA Face to Face with patient for initial transition planning/care coordination assessment. RN CM introduced self and role at [facility]. Patient lying in bed, alert and oriented, and daughter at bedside. Patient willing to participate in assessment and is able to answer all questions appropriately. Care providers, pharmacy, and demographics verified. Patient wishes to discharge home, denies need for home health at this time. Patient states he has no further needs or concerns at this time. CM to follow for discharge planning needs that may arise. PCP: Jeovany Specialists: Liz, urologist; Genevieve control supervisor Preferred Pharmacy: [facility] Insurance: [employer] [facility] Prescription Benefit: yes Living Will/HPOA: yes, Terri Means LNOK: , daughter Living Arrangements: Patient lives with in a 2 story home with bed and bath on first floor. 4 steps and railing to enter the home. Patient states he is independent at home. Transportation: daughter, DME/HHC: Patient states he has shower chair, raised toilet seat, cane, walker, grab bars at home. Patient states he has had [facility] HHC in the past. Disposition Plan: Patient to discharge home with family support and follow-up plans in place. Will monitor for HHC pending progress with therapy. Araceli KUMAR, RN, CM
[2020-09-19 11:46] LABS: Bedside Glucose 124 mg/dL (70-110)
--- NOTE | 2020-09-19 12:42 | PCM.CONS.R ---
Assessment & Plan Assessment/Plan (1) DEISI (acute kidney injury): PLAN: Baseline creatinine last year was around 1.6, recently lowest creatinine was 2.0 on August 22. I would assume this is his new baseline. His creatinine was up to 2.6 on September 11 and is now up to 5. No history of prostate surgery, requiring self catheterizations. Currently has a Akers catheter in without much urine output. Previous renal ultrasound did show some hydronephrosis but this is to be expected in the setting of neurogenic bladder. We will repeat renal imaging. Most likely ATN in the setting of sepsis. Antibiotic management as per primary. No acute indications for dialysis today. Discussed with family at bedside. (2) Acute on chronic renal insufficiency: HPI Consult Data Date of Consult: 09/19/20 HPI Narrative HPI Narrative: ALEA SALGADO, is a 79 M who presents to the hospital with complaints of fever and generalized weakness. He has known history of prostate surgery, urinary retention, self-catheterization 3 times a day. Usually gets about a liter of urine output in the morning, about 500 afternoon and 500 bedtime. He was in his usual state of health up until 2 days ago. 2 days ago he started noticing significant drop in urine output, developed fever yesterday and came into the hospital. He has known history of CKD stage III/IV. Past baseline creatinine was around 2.0. Sustained acute renal failure in the setting of fungemia last admission. Last known baseline creatinine on August 22 was 2.0, September 11 was 2.6, now up to 5. Denies taking any new medications. Only new prescription was a ciprofloxacin which was called in within 2 days, he did not take a lot of these. No NSAIDs, no contrast. Currently has a Akers catheter in place. Urine output is not as great as before [facility] Medical History Anemia Cancer Cancer of prostate Cancer of rectum Chronic kidney disease Current use of insulin Diabetes Former smoker H/O fungal disease Hearing loss, left Hearing loss, right High cholesterol History of immunosuppression therapy Hypertension Kidney disease Osteoporosis Restless legs Self-catheterizes urinary bladder Tendonitis of ankle Wears hearing aid in both ears Home Medications cholecalciferol (vitamin D3) 1,000 unit PO DAILY 12/08/19 [History Last Taken 09/18/20] loperamide 2 mg PO BID 12/08/19 [History Last Taken 09/18/20] hydralazine 50 mg PO BID #60 tablet 05/07/20 [Rx Last Taken 09/18/20] tamsulosin 0.4 mg PO DAILY #30 cap 05/07/20 [Rx Last Taken 09/18/20] atorvastatin 10 mg PO QHS 07/03/20 [History Last Taken 09/17/20] insulin glargine 10 units SC DAILY 07/03/20 [History Last Taken 09/18/20] acetaminophen [Tylenol Extra Strength] 1,000 mg PO DAILY 09/18/20 [History Last Taken 09/18/20] ciprofloxacin HCl 500 mg PO BID 09/18/20 [History Last Taken 09/17/20] diphenhydramine-acetaminophen [Tylenol PM Extra Strength] 2 tab PO QHS PRN 09/18/20 [History Last Taken 09/17/20] Allergy/AdvReac Type Severity Reaction Status Date / Time No Known Allergies Allergy Verified 09/18/20 13:11 Family History (Updated 09/18/20 @ 17:32 by Nolvia Peck NP-C) Mother Diabetes Father CVA (cerebral vascular accident) Sister Heart disease Brother Heart disease Surgical History H/O partial resection of colon History of renal stent S/P TURP (status post transurethral resection of prostate) Social History (Updated 09/18/20 @ 17:32 by RYDER JaquezC) Smoking Status: Former smoker alcohol intake: never substance use type: does not use ROS ROS Narrative Negative except the ones mentioned in history Physical Exam Narrative Alert awake oriented x 3 no obvious distress no pallor no icterus no JVD s1s2 no murmurs lungs clear abdomen soft no organomegaly no edema no cyanosis akers + Medical Records Data Medical Nutrition Assessment Dietitian: Nutrition Therapy Diagnosis Start: 09/19/20 11:51 Freq: Status: Active Protocol: Document 09/19/20 12:22 BP (Rec: 09/19/20 12:23 BP [id number]) Nutrition Malnutrition Evidence of Malnutrition Exists No Intake Problem Inadequate Energy Intake Etiology related to decreased appetite with acute illness Signs/Symptoms as evidenced by pt & family report 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 Status Active Problem Clinical Problem Altered Nutrient-Related Laboratory Values Etiology related to kidney dysfunction, CKD Signs/Symptoms as evidenced by GRF:10, BUN:57 , Creatinine:5.7. Status Active Problem Recommendation Dietitian Recommendations/Changes Will provide Cardiac: CHO controlled, sodium restricted diet- will defer protein restriction as pt & family report pt does not like/ consume protein sources regularly. Will provide glucerna 120 ml with pt meals. Lab / Micro Data Result Diagrams: 09/19/20 05:38 09/19/20 05:38 Labs: Laboratory Results - last 24 hr 09/18/20 14:55: WBC Cancelled, Corrected WBC Cancelled, RBC Cancelled, Hgb Cancelled, Hct Cancelled, MCV Cancelled, MCH Cancelled, MCHC Cancelled, RDW Std Deviation Cancelled, RDW Coeff of Darian Cancelled, Plt Count Cancelled, MPV Cancelled, Immature Gran % (Auto) Cancelled, Neut % (Auto) Cancelled, Lymph % (Auto) Cancelled, [place] % (Auto) Cancelled, Eos % (Auto) Cancelled, Baso % (Auto) Cancelled, Absolute Neuts (auto) Cancelled, Absolute Lymphs (auto) Cancelled, Total Counted Cancelled, Neutrophils % (Manual) Cancelled, Band Neutrophils % Cancelled, Lymphocytes % (Manual) Cancelled, Monocytes % (Manual) Cancelled, Eosinophils % (Manual) Cancelled, Basophils % (Manual) Cancelled, Metamyelocytes % Cancelled, Myelocytes % Cancelled, Promyelocytes % Cancelled, Blast Cells % Cancelled, Plasma Cell % (Manual) Cancelled, Other Cells % Cancelled, Nucleated RBC % Cancelled, Nucleated RBCs/100 WBC Cancelled, Differential Comment Cancelled, Diff Path Review Cancelled, Hypersegmented Neuts Cancelled, Atypical Lymphocytes Cancelled, Reactive Lymphocytes Cancelled, Smudge Cells Cancelled, Toxic Granulation Cancelled, Toxic Vacuolation Cancelled, Dohle Bodies Cancelled, Sue Rods Cancelled, Platelet Estimate Cancelled, Plt Morphology Comment Cancelled, RBC Morphology Cancelled, Polychromasia Cancelled, Hypochromasia Cancelled, Poikilocytosis Cancelled, Basophilic Stippling Cancelled, Anisocytosis Cancelled, Microcytosis Cancelled, Macrocytosis Cancelled, Spherocytes Cancelled, Sickle Cells Cancelled, Target Cells Cancelled, Tear Drop Cells Cancelled, Ovalocytes Cancelled, Stomatocytes Cancelled, [place]azar[place] Bodies Cancelled, [place] Cells Cancelled, Bite Cells Cancelled, Crenated Cell Cancelled, Acanthocytes (Spur) Cancelled, Rouleaux Cancelled, Schistocytes Cancelled 09/18/20 14:55: PT 14.8, INR 1.2, APTT 23.3 L 09/18/20 14:55: Sodium 133 L, Potassium 4.3, Chloride 99, Carbon Dioxide 21.0, Anion Gap 13, BUN 50 H, Creatinine 4.87 H, Estim Creat Clear Calc 11.84, Est GFR (MDRD) Af Amer 15 L, Est GFR (MDRD) Non-Af 12 L, BUN/Creatinine Ratio 10.3, Glucose 179 H, Calcium 8.5, Total Bilirubin 0.50, AST 18, ALT 16, Alkaline Phosphatase 228 H, Total Protein 7.7, Albumin 2.9 L, Globulin 4.8 H, Albumin/Globulin Ratio 0.6 L 09/18/20 14:55: Lactic Acid 1.9 09/18/20 16:05: WBC 12.5 H, RBC 3.06 L, Hgb 8.4 L, Hct 26.5 L, MCV 86.6, MCH 27.5, MCHC 31.7 L, RDW Std Deviation 43.6, RDW Coeff of Darian 13.9, Plt Count 161, MPV 8.7, Immature Gran % (Auto) 0.600, Neut % (Auto) 96.4 H, Lymph % (Auto) 1.4 L, [place] % (Auto) 1.5, Eos % (Auto) 0.0, Baso % (Auto) 0.1, Absolute Neuts (auto) 12.0 H, Absolute Lymphs (auto) 0.18 L, Nucleated RBC % 0, Differential Comment SCANNED 09/18/20 16:30: Urine Color Yellow, Urine Clarity Cloudy, Urine pH 7.0, Ur Specific [place] 1.010, Urine Protein 500 H, Urine Glucose (UA) Normal, Urine Ketones Negative, Urine Occult Blood 250 H, Urine Nitrite Negative, Urine Bilirubin Negative, Urine Urobilinogen Normal, Ur Leukocyte Esterase 500 H, Urine RBC > 100 SEEN, Urine WBC 10-25 SEEN, Ur Squamous Epith Cells 0 SEEN, Urine Bacteria 0 SEEN, Urine Mucus 0 SEEN 09/18/20 21:50: POC Glucose 100 09/19/20 05:38: WBC 14.3 H, RBC 2.82 L, Hgb 7.7 L, Hct 24.0 L, MCV 85.1, MCH 27.3, MCHC 32.1, RDW Std Deviation 43.3, RDW Coeff of Darian 13.9, Plt Count 120 L, MPV 9.1, Immature Gran % (Auto) 0.600, Neut % (Auto) 91.5 H, Lymph % (Auto) 2.3 L, [place] % (Auto) 5.5, Eos % (Auto) 0.0, Baso % (Auto) 0.1, Absolute Neuts (auto) 13.0 H, Absolute Lymphs (auto) 0.33 L, Nucleated RBC % 0 09/19/20 05:38: Sodium 134 L, Potassium 4.4, Chloride 104, Carbon Dioxide 20.0 L, Anion Gap 10, BUN 57 H, Creatinine 5.70 H, Estim Creat Clear Calc 10.17, Est GFR (MDRD) Af Amer 12 L, Est GFR (MDRD) Non-Af 10 L, BUN/Creatinine Ratio 10.0, Glucose 92, Calcium 7.8 L, Total Bilirubin 0.60, AST 42 H, ALT 30, Alkaline Phosphatase 254 H, Total Protein 5.7 L, Albumin 2.0 L, Globulin 3.7, Albumin/Globulin Ratio 0.5 L 09/19/20 06:38: POC Glucose 96 09/19/20 11:39: POC Glucose 124 H Micro: Microbiology 09/18/20 15:00 Interface Orders SARS-CoV-2 Antigen (Rapid) - Final Rhythm Strip Rhythm Strip: Sinus Tach Rate: 112 Ectopy: None Radiology Impression Chest X-Ray 09/18/20 15:02 IMPRESSION: No acute abnormality is seen. Electronically Signed: Michael Cormier MD at 15:21 EDT , Service support ,
--- NOTE | 2020-09-19 12:48 | US_ITS ---
STUDY: RENAL ULTRASOUND - COMPLETE REASON FOR EXAM: Male, 79 years old. DEISI TECHNIQUE: Ultrasound evaluation of the kidneys was performed with real-time and static zavala-scale imaging. COMPARISON: 07/04/2020. FINDINGS: RIGHT KIDNEY: Normal location, with moderate renal atrophy. The right kidney measures 8.4 x 4.0 x 3.3 cm. There is a normal cortex of the right kidney. The renal cortex measures 0.6 cm. There is no right renal mass or cyst. There are no right renal calculi. There is no right hydronephrosis. DISTAL RIGHT URETER: There is non-visualization of the distal right ureter. There is no demonstrated right ureterovesical junction calculus. There is no demonstrated right ureteral jet. LEFT KIDNEY: Normal location of the left kidney, which is normal in size. The left kidney measures 11.9 x 5.8 x 5.9 cm. There is a normal cortex of the left kidney. The renal cortex measures 1.1 cm. There is no left renal mass or cyst. There are no left renal calculi. There is moderate hydronephrosis of the left kidney. Echoes from a ureteral stent are seen. DISTAL LEFT URETER: Echoes are seen from a ureteral stent.. There is no demonstrated left ureterovesical junction calculus. There is no demonstrated left ureteral jet. BLADDER: There is a Judd catheter emptying the bladder. US/Kidney and Bladder IMPRESSION: Stent seen on the left ureter seen. Continued moderate left hydronephrosis. Electronically Signed: Randy Aguillon MD at 17:06 EDT , Service support ,
--- NOTE | 2020-09-19 14:33 | PCM.CONS.GEN ---
Assessment & Plan Assessment/Plan (1) Sepsis: QUALIFIERS: Sepsis type: sepsis due to unspecified organism Sepsis acute organ dysfunction status: unspecified Qualified Code(s): A41.9 - Sepsis, unspecified organism (2) Bacteremia due to Gram-negative bacteria: PLAN: Bcx with GPR and GNR. On vanc/zosyn, will continue. Renal u/s pending. Covid vaccinated, Ag neg here. Will follow, d/w primary team HPI Consult Data Date of Consult: 09/19/20 HPI Narrative HPI Narrative: ALEA SALGADO, is a 79 M with h/o prostate and colon cancer, admitted in June with candidemia. Now presented to ED 09/18 with 24 hours weakness, mild congestion, mild fever, not feeling well. Does self cath at home, UOP decreased. No abd pain, no cough or SOB. No change in taste or smell, no sick contacts, has completed covid series. Admitted on vanc/zosyn after dose of micafungin, feeling better today. Full ROS performed and neg except as noted above. [facility], [facility] Medical History Anemia Cancer Cancer of prostate Cancer of rectum Chronic kidney disease Current use of insulin Diabetes Former smoker H/O fungal disease Hearing loss, left Hearing loss, right High cholesterol History of immunosuppression therapy Hypertension Kidney disease Osteoporosis Restless legs Self-catheterizes urinary bladder Tendonitis of ankle Wears hearing aid in both ears Home Medications cholecalciferol (vitamin D3) 1,000 unit PO DAILY 12/08/19 [History Last Taken 09/18/20] loperamide 2 mg PO BID 12/08/19 [History Last Taken 09/18/20] hydralazine 50 mg PO BID #60 tablet 05/07/20 [Rx Last Taken 09/18/20] tamsulosin 0.4 mg PO DAILY #30 cap 05/07/20 [Rx Last Taken 09/18/20] atorvastatin 10 mg PO QHS 07/03/20 [History Last Taken 09/17/20] insulin glargine 10 units SC DAILY 07/03/20 [History Last Taken 09/18/20] acetaminophen [Tylenol Extra Strength] 1,000 mg PO DAILY 09/18/20 [History Last Taken 09/18/20] ciprofloxacin HCl 500 mg PO BID 09/18/20 [History Last Taken 09/17/20] diphenhydramine-acetaminophen [Tylenol PM Extra Strength] 2 tab PO QHS PRN 09/18/20 [History Last Taken 09/17/20] Allergy/AdvReac Type Severity Reaction Status Date / Time No Known Allergies Allergy Verified 09/18/20 13:11 Family History (Updated 09/18/20 @ 17:32 by LANEY Jaquez) Mother Diabetes Father CVA (cerebral vascular accident) Sister Heart disease Brother Heart disease Surgical History H/O partial resection of colon History of renal stent S/P TURP (status post transurethral resection of prostate) Social History (Updated 09/18/20 @ 17:32 by Nolvia Peck NP-Terry) Smoking Status: Former smoker alcohol intake: never substance use type: does not use Physical Exam Const alert, oriented x3 and no apparent distress General Appearance: cooperative HEENT normocephalic and head/scalp atraumatic Eyes PERRL and EOMs intact bilaterally Neck supple and No nodes Resp normal air movement and clear to auscultation bilaterally Cardio regular rate and regular rhythm GI normal to inspection, nondistended, normoactive bowel sounds Extremity no clubbing, cyanosis or edema Skin no rashes or lesions noted Neuro CN's II-XII intact bilaterally Medical Records Data Medical Nutrition Assessment Dietitian: Nutrition Therapy Diagnosis Start: 09/19/20 11:51 Freq: Status: Active Protocol: Document 09/19/20 12:22 BP (Rec: 09/19/20 12:23 BP [id number]) Nutrition Malnutrition Evidence of Malnutrition Exists No Intake Problem Inadequate Energy Intake Etiology related to decreased appetite with acute illness Signs/Symptoms as evidenced by pt & family report 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 Status Active Problem Clinical Problem Altered Nutrient-Related Laboratory Values Etiology related to kidney dysfunction, CKD Signs/Symptoms as evidenced by GRF:10, BUN:57 , Creatinine:5.7. Status Active Problem Recommendation Dietitian Recommendations/Changes Will provide Cardiac: CHO controlled, sodium restricted diet- will defer protein restriction as pt & family report pt does not like/ consume protein sources regularly. Will provide glucerna 120 ml with pt meals. Lab / Micro Data Result Diagrams: 09/19/20 05:38 09/19/20 05:38 Labs: Laboratory Results - last 24 hr 09/18/20 14:55: WBC Cancelled, Corrected WBC Cancelled, RBC Cancelled, Hgb Cancelled, Hct Cancelled, MCV Cancelled, MCH Cancelled, MCHC Cancelled, RDW Std Deviation Cancelled, RDW Coeff of Darian Cancelled, Plt Count Cancelled, MPV Cancelled, Immature Gran % (Auto) Cancelled, Neut % (Auto) Cancelled, Lymph % (Auto) Cancelled, [place] % (Auto) Cancelled, Eos % (Auto) Cancelled, Baso % (Auto) Cancelled, Absolute Neuts (auto) Cancelled, Absolute Lymphs (auto) Cancelled, Total Counted Cancelled, Neutrophils % (Manual) Cancelled, Band Neutrophils % Cancelled, Lymphocytes % (Manual) Cancelled, Monocytes % (Manual) Cancelled, Eosinophils % (Manual) Cancelled, Basophils % (Manual) Cancelled, Metamyelocytes % Cancelled, Myelocytes % Cancelled, Promyelocytes % Cancelled, Blast Cells % Cancelled, Plasma Cell % (Manual) Cancelled, Other Cells % Cancelled, Nucleated RBC % Cancelled, Nucleated RBCs/100 WBC Cancelled, Differential Comment Cancelled, Diff Path Review Cancelled, Hypersegmented Neuts Cancelled, Atypical Lymphocytes Cancelled, Reactive Lymphocytes Cancelled, Smudge Cells Cancelled, Toxic Granulation Cancelled, Toxic Vacuolation Cancelled, Dohle Bodies Cancelled, Sue Rods Cancelled, Platelet Estimate Cancelled, Plt Morphology Comment Cancelled, RBC Morphology Cancelled, Polychromasia Cancelled, Hypochromasia Cancelled, Poikilocytosis Cancelled, Basophilic Stippling Cancelled, Anisocytosis Cancelled, Microcytosis Cancelled, Macrocytosis Cancelled, Spherocytes Cancelled, Sickle Cells Cancelled, Target Cells Cancelled, Tear Drop Cells Cancelled, Ovalocytes Cancelled, Stomatocytes Cancelled, Salazar-[place] Bodies Cancelled, [place] Cells Cancelled, Bite Cells Cancelled, Crenated Cell Cancelled, Acanthocytes (Spur) Cancelled, Rouleaux Cancelled, Schistocytes Cancelled 09/18/20 14:55: PT 14.8, INR 1.2, APTT 23.3 L 09/18/20 14:55: Sodium 133 L, Potassium 4.3, Chloride 99, Carbon Dioxide 21.0, Anion Gap 13, BUN 50 H, Creatinine 4.87 H, Estim Creat Clear Calc 11.84, Est GFR (MDRD) Af Amer 15 L, Est GFR (MDRD) Non-Af 12 L, BUN/Creatinine Ratio 10.3, Glucose 179 H, Calcium 8.5, Total Bilirubin 0.50, AST 18, ALT 16, Alkaline Phosphatase 228 H, Total Protein 7.7, Albumin 2.9 L, Globulin 4.8 H, Albumin/Globulin Ratio 0.6 L 09/18/20 14:55: Lactic Acid 1.9 09/18/20 16:05: WBC 12.5 H, RBC 3.06 L, Hgb 8.4 L, Hct 26.5 L, MCV 86.6, MCH 27.5, MCHC 31.7 L, RDW Std Deviation 43.6, RDW Coeff of Darian 13.9, Plt Count 161, MPV 8.7, Immature Gran % (Auto) 0.600, Neut % (Auto) 96.4 H, Lymph % (Auto) 1.4 L, [place] % (Auto) 1.5, Eos % (Auto) 0.0, Baso % (Auto) 0.1, Absolute Neuts (auto) 12.0 H, Absolute Lymphs (auto) 0.18 L, Nucleated RBC % 0, Differential Comment SCANNED 09/18/20 16:30: Urine Color Yellow, Urine Clarity Cloudy, Urine pH 7.0, Ur Specific [place] 1.010, Urine Protein 500 H, Urine Glucose (UA) Normal, Urine Ketones Negative, Urine Occult Blood 250 H, Urine Nitrite Negative, Urine Bilirubin Negative, Urine Urobilinogen Normal, Ur Leukocyte Esterase 500 H, Urine RBC > 100 SEEN, Urine WBC 10-25 SEEN, Ur Squamous Epith Cells 0 SEEN, Urine Bacteria 0 SEEN, Urine Mucus 0 SEEN 09/18/20 21:50: POC Glucose 100 09/19/20 05:38: WBC 14.3 H, RBC 2.82 L, Hgb 7.7 L, Hct 24.0 L, MCV 85.1, MCH 27.3, MCHC 32.1, RDW Std Deviation 43.3, RDW Coeff of Darian 13.9, Plt Count 120 L, MPV 9.1, Immature Gran % (Auto) 0.600, Neut % (Auto) 91.5 H, Lymph % (Auto) 2.3 L, [place] % (Auto) 5.5, Eos % (Auto) 0.0, Baso % (Auto) 0.1, Absolute Neuts (auto) 13.0 H, Absolute Lymphs (auto) 0.33 L, Nucleated RBC % 0 09/19/20 05:38: Sodium 134 L, Potassium 4.4, Chloride 104, Carbon Dioxide 20.0 L, Anion Gap 10, BUN 57 H, Creatinine 5.70 H, Estim Creat Clear Calc 10.17, Est GFR (MDRD) Af Amer 12 L, Est GFR (MDRD) Non-Af 10 L, BUN/Creatinine Ratio 10.0, Glucose 92, Calcium 7.8 L, Total Bilirubin 0.60, AST 42 H, ALT 30, Alkaline Phosphatase 254 H, Total Protein 5.7 L, Albumin 2.0 L, Globulin 3.7, Albumin/Globulin Ratio 0.5 L 09/19/20 06:38: POC Glucose 96 09/19/20 11:39: POC Glucose 124 H Micro: Microbiology 09/18/20 14:55 Blood Culture (Wb) - Anticubital Right Blood Culture - Preliminary 09/18/20 15:00 Interface Orders SARS-CoV-2 Antigen (Rapid) - Final Rhythm Strip Rhythm Strip: Sinus Tach Rate: 112 Ectopy: None Radiology Impression Chest X-Ray 09/18/20 15:02 IMPRESSION: No acute abnormality is seen. Electronically Signed: Michael Cormier MD at 15:21 EDT , Service support ,
--- NOTE | 2020-09-19 14:37 | CASEMGMT ---
[facility] palliative screening tool completed and pt qualifies for palliative referral and Dr. Craft aware. Per Dr. Craft, pt declines palliative referral. Gilson RN CM
--- NOTE | 2020-09-19 16:40 | PCM.PN.HOSP ---
Subjective Subjective Patient was seen and examined today I talked with his and daughter who were in the room at the time of my examination. Patient's blood cultures today resulted positive for gram-negative and gram-positive cocci, I will add infectious diseases note of this, they saw this patient today and did not feel he needed ongoing treatment for fungus infection. Patient had a renal ultrasound performed today which is pending at this time, I had nephrology see the patient today due to declining renal function. Objective Data Objective Data Vital Signs: Vital Signs Temp Pulse Resp BP Pulse Ox 98.8 F 107 H 16 137/65 H 98 09/19/20 16:00 09/19/20 16:00 09/19/20 16:00 09/19/20 16:00 09/19/20 16:00 Oxygen Delivery Method Room Air Weight: 74.2 kg Body Mass Index (BMI) 22.8 Intake & Output: Intake and Output for Last 24 Hours 09/17/20 09/18/20 09/19/20 23:59 23:59 23:59 Intake Total 1740 / 1800 2160 / 2160 Output Total 135 / 135 Balance 1740 / 1725 2024 Medical Nutrition Assessment Dietitian: Nutrition Therapy Diagnosis Start: 09/19/20 11:51 Freq: Status: Active Protocol: Document 09/19/20 12:22 BP (Rec: 09/19/20 12:23 BP [id number]) Nutrition Malnutrition Evidence of Malnutrition Exists No Intake Problem Inadequate Energy Intake Etiology related to decreased appetite with acute illness Signs/Symptoms as evidenced by pt & family report 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 Status Active Problem Clinical Problem Altered Nutrient-Related Laboratory Values Etiology related to kidney dysfunction, CKD Signs/Symptoms as evidenced by GRF:10, BUN:57 , Creatinine:5.7. Status Active Problem Recommendation Dietitian Recommendations/Changes Will provide Cardiac: CHO controlled, sodium restricted diet- will defer protein restriction as pt & family report pt does not like/ consume protein sources regularly. Will provide glucerna 120 ml with pt meals. Lab / Micro Data Result Diagrams: 09/19/20 05:38 09/19/20 05:38 Labs: Laboratory Results - last 24 hr 09/18/20 16:05: WBC 12.5 H, RBC 3.06 L, Hgb 8.4 L, Hct 26.5 L, MCV 86.6, MCH 27.5, MCHC 31.7 L, RDW Std Deviation 43.6, RDW Coeff of Darain 13.9, Plt Count 161, MPV 8.7, Immature Gran % (Auto) 0.600, Neut % (Auto) 96.4 H, Lymph % (Auto) 1.4 L, [place] % (Auto) 1.5, Eos % (Auto) 0.0, Baso % (Auto) 0.1, Absolute Neuts (auto) 12.0 H, Absolute Lymphs (auto) 0.18 L, Nucleated RBC % 0, Differential Comment SCANNED 09/18/20 16:30: Urine Color Yellow, Urine Clarity Cloudy, Urine pH 7.0, Ur Specific [place] 1.010, Urine Protein 500 H, Urine Glucose (UA) Normal, Urine Ketones Negative, Urine Occult Blood 250 H, Urine Nitrite Negative, Urine Bilirubin Negative, Urine Urobilinogen Normal, Ur Leukocyte Esterase 500 H, Urine RBC > 100 SEEN, Urine WBC 10-25 SEEN, Ur Squamous Epith Cells 0 SEEN, Urine Bacteria 0 SEEN, Urine Mucus 0 SEEN 09/18/20 21:50: POC Glucose 100 09/19/20 05:38: WBC 14.3 H, RBC 2.82 L, Hgb 7.7 L, Hct 24.0 L, MCV 85.1, MCH 27.3, MCHC 32.1, RDW Std Deviation 43.3, RDW Coeff of Darian 13.9, Plt Count 120 L, MPV 9.1, Immature Gran % (Auto) 0.600, Neut % (Auto) 91.5 H, Lymph % (Auto) 2.3 L, [place] % (Auto) 5.5, Eos % (Auto) 0.0, Baso % (Auto) 0.1, Absolute Neuts (auto) 13.0 H, Absolute Lymphs (auto) 0.33 L, Nucleated RBC % 0 09/19/20 05:38: Sodium 134 L, Potassium 4.4, Chloride 104, Carbon Dioxide 20.0 L, Anion Gap 10, BUN 57 H, Creatinine 5.70 H, Estim Creat Clear Calc 10.17, Est GFR (MDRD) Af Amer 12 L, Est GFR (MDRD) Non-Af 10 L, BUN/Creatinine Ratio 10.0, Glucose 92, Calcium 7.8 L, Total Bilirubin 0.60, AST 42 H, ALT 30, Alkaline Phosphatase 254 H, Total Protein 5.7 L, Albumin 2.0 L, Globulin 3.7, Albumin/Globulin Ratio 0.5 L 09/19/20 06:38: POC Glucose 96 09/19/20 11:39: POC Glucose 124 H Micro: Microbiology 09/18/20 14:55 Blood Culture (Wb) - Anticubital Right Blood Culture - Preliminary 09/18/20 15:00 Interface Orders SARS-CoV-2 Antigen (Rapid) - Final Rhythm Strip Rhythm Strip: Sinus Tach Rate: 112 Ectopy: None Physical Exam Const alert, oriented x3, no apparent distress and average body habitus HEENT head/scalp atraumatic and moist oral mucous membranes Head and Scalp: normocephalic Eyes PERRL, EOMs intact bilaterally and conjunctivae normal Neck no lymphadenopathy, supple and no JVD Resp normal respiratory effort, no retractions, no use of accessory muscles and clear to auscultation bilaterally Cardio regular rate, regular rhythm, S1 normal heart sound, S2 normal heart sound, no gallops and no clicks GI normal to inspection, nondistended, normoactive bowel sounds, soft to palpation, non-tender and non-distended Extremity normal to inspection and no clubbing, cyanosis or edema Skin no rashes or lesions noted, no wounds, skin turgor normal and no jaundice Neuro oriented x3, CN's II-XII intact bilaterally and no focal motor deficits Sensorium / Orientation: awake, alert and oriented to person Psych affect normal Assessment & Plan Assessment/Plan (1) Bacteremia due to Gram-negative bacteria: (2) Complicated acute cystitis: (3) Recent DEISI on CKD: (4) Sepsis: QUALIFIERS: Sepsis type: sepsis due to unspecified organism Sepsis acute organ dysfunction status: unspecified Qualified Code(s): A41.9 - Sepsis, unspecified organism PLAN: 1. Sepsis secondary to complicated acute cystitis -Continue antibiotic coverage per ID 2. Acute kidney injury superimposed on chronic kidney disease stage IIIb -Nephrology will see the patient today, labs will be monitored, a kidney ultrasound was ordered today and results are pending at this time 3. Hypertension - 4. Diabetes mellitus -Will continue Lantus 10 units subcu daily -AC at bedtime with sliding scale blood sugars ordered -Cardiac calorie controlled diet ordered 5. History of prostate cancer -Patient currently self caths at home, urinary catheter placed in ER, will continue -Continue tamsulosin 6. History of colorectal cancer with partial colectomy -Continue daily loperamide for loose stools #7 anemia secondary to chronic renal disease, CBC will be rechecked tomorrow, patient may need a blood transfusion if his hemoglobin drops further. Charges/Coding Visit Charges Inpatient E&M: 90845 Subs Hosp L2
--- NOTE | 2020-09-19 17:30 | CON.PCM.UR_ITS ---
Assessment & Plan Assessment/Plan (1) Hx of transurethral resection of prostate: (2) Stage 3a chronic kidney disease: (3) Severe sepsis: PLAN: patient presents the hospital multiple medical problems and the Akers catheter in place, he has stents bilaterally, on ultrasound was reviewed today he has no hydronephrosis on the right side has some moderate hydronephrosis on the left side with the stent in place. Very likely has a quick you renal failure is multiple factorial from the sepsis and also chronic kidney disease the stents were not place that long ago at some point they may need to be changed but this point probably with the ongoing sepsis would continue with close observation we may have to consider changing the stents but want to stabilize and first. Will be by the morning see him. HPI Consult Data Date of Consult: 09/19/20 HPI Narrative HPI Narrative: 79-year-old male with a history of prior transurethral resection of the prostate done in the distant past and also he has history of prostate cancer with radiation. At this point he has a significant amount of scar tissue in the urethral channel has akers in place, Comes in with sepsis, Int he past he had been doing self intermittent catheterization and scar down all the way and I did taken down to surgery to dilate the urethra and dilate the scar tissue but a catheter is very difficult fully placement also the same time a change stents bilaterally for obstruction of both his kidneys. At this point comes in to hospital with sepsis has b/l Stents. [facility] Medical History Anemia Cancer Cancer of prostate Cancer of rectum Chronic kidney disease Current use of insulin Diabetes Former smoker H/O fungal disease Hearing loss, left Hearing loss, right High cholesterol History of immunosuppression therapy Hypertension Kidney disease Osteoporosis Restless legs Self-catheterizes urinary bladder Tendonitis of ankle Wears hearing aid in both ears Home Medications cholecalciferol (vitamin D3) 1,000 unit PO DAILY 12/08/19 [History Last Taken 09/18/20] loperamide 2 mg PO BID 12/08/19 [History Last Taken 09/18/20] hydralazine 50 mg PO BID #60 tablet 05/07/20 [Rx Last Taken 09/18/20] tamsulosin 0.4 mg PO DAILY #30 cap 05/07/20 [Rx Last Taken 09/18/20] atorvastatin 10 mg PO QHS 07/03/20 [History Last Taken 09/17/20] insulin glargine 10 units SC DAILY 07/03/20 [History Last Taken 09/18/20] acetaminophen [Tylenol Extra Strength] 1,000 mg PO DAILY 09/18/20 [History Last Taken 09/18/20] ciprofloxacin HCl 500 mg PO BID 09/18/20 [History Last Taken 09/17/20] diphenhydramine-acetaminophen [Tylenol PM Extra Strength] 2 tab PO QHS PRN 0 09/18/20 [History Last Taken 09/17/20] Allergy/AdvReac Type Severity Reaction Status Date / Time No Known Allergies Allergy Verified 09/18/20 13:11 Family History (Updated 09/18/20 @ 17:32 by LANEY Jaquez) Mother Diabetes Father CVA (cerebral vascular accident) Sister Heart disease Brother Heart disease Surgical History H/O partial resection of colon History of renal stent S/P TURP (status post transurethral resection of prostate) Social History (Updated 09/18/20 @ 17:32 by Nolvia Peck NP-C) Smoking Status: Former smoker alcohol intake: never substance use type: does not use ROS Constitutional Constitutional: Denies chills, fever(s) or malaise Eyes Eyes: Denies blurry vision or change in vision ENT HEENT: Reports none Cardiovascular Cardiovascular: Denies chest pain or palpitations Respiratory/Chest Respiratory/Chest: Denies cough or shortness of breath with exertion Gastrointestinal Gastrointestinal: Denies abdominal pain, constipation or diarrhea Musculoskeletal Musculoskeletal: Denies back pain, joint stiffness or joint swelling Integumentary Integumentary: Denies dry skin, jaundice, lesions or rash Neurologic Neurologic: Denies confusion, syncope or weakness Psychiatric Psychiatric: Reports none; Denies anxiety or depression Endocrine Endocrinology: Denies excessive sweating, fatigue or flushing Hematologic/Lymphatic Hematologic/Lymphatic: Denies anemia, easy bleeding or easy bruising Physical Exam Const alert and oriented x3 General Appearance: cooperative HEENT normocephalic, head/scalp atraumatic, EAC's normal and TM's normal bilaterally Eyes PERRL and EOMs intact bilaterally Pupil: sluggish Neck no lymphadenopathy, supple and no JVD General: trachea midline Lymph Lymphatic: no lymphadenopathy noted, lymphedema and lymphadenopathy Resp normal respiratory effort, normal air movement and clear to auscultation bilaterally Cardio regular rate, regular rhythm and peripheral pulses 2+ throughout GI soft to palpation, non-tender and non-distended Extremity normal capillary refill and no clubbing, cyanosis or edema General Extremity: no tenderness to palpation of joints or extremities Skin no rashes or lesions noted General Skin Exam: turgor normal Lesions: no lesions Rashes: no rashes Neuro CN's II-XII intact bilaterally Speech: speech normal Motor Exam: strength 5/5 throughout; Negative for general weakness Psych thought process normal, cooperative and affect normal Appearance: appropriate Medical Records Data Medical Nutrition Assessment Dietitian: Nutrition Therapy Diagnosis Start: 09/19/20 11:51 Freq: Status: Active Protocol: Document 09/19/20 12:22 BP (Rec: 09/19/20 12:23 BP [id number]) Nutrition Malnutrition Evidence of Malnutrition Exists No Intake Problem Inadequate Energy Intake Etiology related to decreased appetite with acute illness Signs/Symptoms as evidenced by pt & family report 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 Status Active Problem Clinical Problem Altered Nutrient-Related Laboratory Values Etiology related to kidney dysfunction, CKD Signs/Symptoms as evidenced by GRF:10, BUN:57 , Creatinine:5.7. Status Active Problem Recommendation Dietitian Recommendations/Changes Will provide Cardiac: CHO controlled, sodium restricted diet- will defer protein restriction as pt & family report pt does not like/ consume protein sources regularly. Will provide glucerna 120 ml with pt meals. Lab / Micro Data Result Diagrams: 09/19/20 05:38 09/19/20 05:38 Labs: Laboratory Results - last 24 hr 09/18/20 21:50: POC Glucose 100 09/19/20 05:38: WBC 14.3 H, RBC 2.82 L, Hgb 7.7 L, Hct 24.0 L, MCV 85.1, MCH 27.3, MCHC 32.1, RDW Std Deviation 43.3, RDW Coeff of Darian 13.9, Plt Count 120 L, MPV 9.1, Immature Gran % (Auto) 0.600, Neut % (Auto) 91.5 H, Lymph % (Auto) 2.3 L, [place] % (Auto) 5.5, Eos % (Auto) 0.0, Baso % (Auto) 0.1, Absolute Neuts (auto) 13.0 H, Absolute Lymphs (auto) 0.33 L, Nucleated RBC % 0 09/19/20 05:38: Sodium 134 L, Potassium 4.4, Chloride 104, Carbon Dioxide 20.0 L , Anion Gap 10, BUN 57 H, Creatinine 5.70 H, Estim Creat Clear Calc 10.17, Est GFR (MDRD) Af Amer 12 L, Est GFR (MDRD) Non-Af 10 L, BUN/Creatinine Ratio 10.0, Glucose 92, Calcium 7.8 L, Total Bilirubin 0.60, AST 42 H, ALT 30, Alkaline Phosphatase 254 H, Total Protein 5.7 L, Albumin 2.0 L, Globulin 3.7, Albumin/Globulin Ratio 0.5 L 09/19/20 06:38: POC Glucose 96 09/19/20 11:39: POC Glucose 124 H Micro: Microbiology 09/18/20 14:55 Blood Culture (Wb) - Anticubital Right Blood Culture - Preliminary 09/18/20 15:00 Interface Orders SARS-CoV-2 Antigen (Rapid) - Final Rhythm Strip Rhythm Strip: Sinus Tach Rate: 112 Ectopy: None Radiology Impression Renal Ultrasound 09/19/20 12:48 IMPRESSION: Stent seen on the left ureter seen. Continued moderate left hydronephrosis. Electronically Signed: Randy Aguillon MD at 17:06 EDT , Service support ,
[2020-09-19 17:40] LABS: Bedside Glucose 86 mg/dL (70-110)
[2020-09-19] MEDS: Atorvastatin Calcium 10 MG Tablet PO (20:47)
[2020-09-19] MEDS: Acetaminophen 325 MG Tablet 650 MG PO (20:48)
[2020-09-19] MEDS: hydrALAZINE 50 MG Tablet PO (20:48)
[2020-09-19 21:36] LABS: Bedside Glucose 113 mg/dL (70-110)
[2020-09-20] VITALS (13 sets, daily range): BP systolic 123–153; BP diastolic 53–72; PULSE 77–113; RESP 12–18; TEMP 36.8–37.6; O2SAT 92–98
[2020-09-20] MEDS: Acetaminophen 325 MG Tablet 650 MG PO (03:56)
[2020-09-20] MEDS: 0.9% Normal Saline 1,000 ML 100 ML IV ×2 (03:56→18:03)
[2020-09-20 05:31] LABS: Basophil# 0.01 X10^3/uL; Basophil% 0.1 % (0-1); Hematocrit 22.3 % (40-54); Hemoglobin 7.3 g/dL (13.0-16.5); Lymphocyte % 1.8 % (19-41); Mean Corp Hgb Conc 32.7 g/dL (32-36); Mean Corpuscular Hgb 27.2 pg (27.0-32.0); Mean Corpuscular Volume 83.2 fL (80-94); Mean Platelet Vol. 9.1 fl (6.2-12.0); Monocyte% 5.4 % (0-10); NRBC Flagged by Analyzer 0 % (0-5); Neutrophil # 10.03 X10^3/uL (2.7-7.7); Neutrophil % 90.9 % (47-70); POSITIVE DIFFERENTIAL YES; Platelet Count 100 K/mm3 (150-450); RBC Distribution Width CV 14.2 % (11.6-14.6); RBC Distribution Width SD 43.5 fl (35.1-43.9); Red Blood Count 2.68 M/mm3 (4.6-6.2)
[2020-09-20 05:34] LABS: Differential Indicated SCAN CRITERIA MET
[2020-09-20 05:49] LABS: ALB/GLOB Ratio 0.5 RATIO (0.9-2.4); AST(SGOT) 33 U/L (15-37); Alanine Aminotransfer ALT/SGPT 24 U/L (16-61); Albumin, Serum 1.8 g/dL (3.2-5.0); Alkaline Phosphatase 264 U/L (45-117); Anion Gap 13 (5-15); BUN 65 mg/dL (7-18); BUN/Creat Ratio 10.5 RATIO (10-20); Calcium,Total 7.5 mg/dL (8.5-10.1); Chloride 107 mmol/L (98-107); Creatinine, Serum 6.19 mg/dL (0.70-1.30); EST Glomerular Filtration Rate 9 mL/min (>60); Est Glom Filt Rate - Afr Amer 11 mL/min (>60); Estimated Creatinine Clearance 9.36 ml/min; Globulin 3.5 g/dL (2.2-4.2); Glucose 77 mg/dL (74-106); Potassium 4.1 mmol/L (3.5-5.1); Protein, Total 5.3 g/dL (6.4-8.2); Sodium Level 137 mmol/L (136-145)
[2020-09-20 06:50] LABS: Bedside Glucose 75 mg/dL (70-110)
--- NOTE | 2020-09-20 07:17 | PCM.CONS.U ---
Assessment & Plan Assessment/Plan (1) Hydronephrosis: QUALIFIERS: Hydronephrosis type: other Qualified Code(s): N13.39 - Other hydronephrosis (2) Hx of transurethral resection of prostate: PLAN: He does self cath at home when he goes home health to continue with this for now I would continue to monitor his kidney function, I was expecting it did get better we will see what his creatinine is tomorrow hopefully the urine output picks up his creatinine also to drop right now it will seen in necessary reason to change his stents they are working. While to monitor his creatinine I think most of the because of his creatinine increases prerenal and sepsis and infection with hydration and improvement this should get better. We will continue to monitor. HPI Consult Data Date of Consult: 09/20/20 HPI Narrative HPI Narrative: 79-year-old my male that presented with sepsis acute renal failure and UTI, reviewed his ultrasound with no hydronephrosis in the right side moderate hydronephrosis of the left side which is chronic he has nice clear urine output his urine output has improved he had no urine output when he was first admitted. hopefully with hydration and improvement of time his creatinine will improve [facility] Medical History Anemia Cancer Cancer of prostate Cancer of rectum Chronic kidney disease Current use of insulin Diabetes Former smoker H/O fungal disease Hearing loss, left Hearing loss, right High cholesterol History of immunosuppression therapy Hypertension Kidney disease Osteoporosis Restless legs Self-catheterizes urinary bladder Tendonitis of ankle Wears hearing aid in both ears Home Medications cholecalciferol (vitamin D3) 1,000 unit PO DAILY 12/08/19 [History Last Taken 09/18/20] loperamide 2 mg PO BID 12/08/19 [History Last Taken 09/18/20] hydralazine 50 mg PO BID #60 tablet 05/07/20 [Rx Last Taken 09/18/20] tamsulosin 0.4 mg PO DAILY #30 cap 05/07/20 [Rx Last Taken 09/18/20] atorvastatin 10 mg PO QHS 07/03/20 [History Last Taken 09/17/20] insulin glargine 10 units SC DAILY 07/03/20 [History Last Taken 09/18/20] acetaminophen [Tylenol Extra Strength] 1,000 mg PO DAILY 09/18/20 [History Last Taken 09/18/20] ciprofloxacin HCl 500 mg PO BID 09/18/20 [History Last Taken 09/17/20] diphenhydramine-acetaminophen [Tylenol PM Extra Strength] 2 tab PO QHS PRN 09/18/20 [History Last Taken 09/17/20] Allergy/AdvReac Type Severity Reaction Status Date / Time No Known Allergies Allergy Verified 09/18/20 13:11 Family History (Updated 09/18/20 @ 17:32 by Nolvia Peck NP-C) Mother Diabetes Father CVA (cerebral vascular accident) Sister Heart disease Brother Heart disease Surgical History H/O partial resection of colon History of renal stent S/P TURP (status post transurethral resection of prostate) Social History (Updated 09/18/20 @ 17:32 by LANEY Jaquez) Smoking Status: Former smoker alcohol intake: never substance use type: does not use Medical Records Data Medical Nutrition Assessment Dietitian: Nutrition Therapy Diagnosis Start: 09/19/20 11:51 Freq: Status: Active Protocol: Document 09/19/20 12:22 BP (Rec: 09/19/20 12:23 BP [id number]) Nutrition Malnutrition Evidence of Malnutrition Exists No Intake Problem Inadequate Energy Intake Etiology related to decreased appetite with acute illness Signs/Symptoms as evidenced by pt & family report 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 Status Active Problem Clinical Problem Altered Nutrient-Related Laboratory Values Etiology related to kidney dysfunction, CKD Signs/Symptoms as evidenced by GRF:10, BUN:57 , Creatinine:5.7. Status Active Problem Recommendation Dietitian Recommendations/Changes Will provide Cardiac: CHO controlled, sodium restricted diet- will defer protein restriction as pt & family report pt does not like/ consume protein sources regularly. Will provide glucerna 120 ml with pt meals. Lab / Micro Data Result Diagrams: 09/20/20 05:22 09/20/20 05:22 Labs: Laboratory Results - last 24 hr 09/19/20 11:39: POC Glucose 124 H 09/19/20 17:35: POC Glucose 86 09/19/20 20:46: POC Glucose 113 H 09/20/20 05:22: WBC 11.0, RBC 2.68 L, Hgb 7.3 L, Hct 22.3 L, MCV 83.2, MCH 27.2, MCHC 32.7, RDW Std Deviation 43.5, RDW Coeff of Darian 14.2, Plt Count 100 L, MPV 9.1, Immature Gran % (Auto) 1.800 H, Neut % (Auto) 90.9 H, Lymph % (Auto) 1.8 L, Jay % (Auto) 5.4, Eos % (Auto) 0.0, Baso % (Auto) 0.1, Absolute Neuts (auto) 10.0 H, Absolute Lymphs (auto) 0.20 L, Nucleated RBC % 0 09/20/20 05:22: Sodium 137, Potassium 4.1, Chloride 107, Carbon Dioxide 17.0 L, Anion Gap 13, BUN 65 H, Creatinine 6.19 H, Estim Creat Clear Calc 9.36, Est GFR (MDRD) Af Amer 11 L, Est GFR (MDRD) Non-Af 9 L, BUN/Creatinine Ratio 10.5, Glucose 77, Calcium 7.5 L, Total Bilirubin 0.50, AST 33, ALT 24, Alkaline Phosphatase 264 H, Total Protein 5.3 L, Albumin 1.8 L, Globulin 3.5, Albumin/Globulin Ratio 0.5 L 09/20/20 06:41: POC Glucose 75 Micro: Microbiology 09/18/20 14:55 Blood Culture (Wb) - Left Hand Blood Culture - Preliminary 09/18/20 14:55 Blood Culture (Wb) - Anticubital Right Blood Culture - Preliminary Rhythm Strip Rhythm Strip: Sinus Tach Rate: 112 Ectopy: None Radiology Impression Renal Ultrasound 09/19/20 12:48 IMPRESSION: Stent seen on the left ureter seen. Continued moderate left hydronephrosis. Electronically Signed: Randy Aguillon MD at 17:06 EDT , Service support ,
[2020-09-20] MEDS: Acetaminophen 500 MG Tablet 1000 MG PO (11:46)
[2020-09-20] MEDS: hydrALAZINE 50 MG Tablet PO ×2 (11:47→21:24)
[2020-09-20] MEDS: Cholecalciferol (VIT D3) 25 MCG TABLET (1,000 UNITS) PO (11:47)
[2020-09-20] MEDS: Loperamide 2 MG Capsule PO ×2 (11:48→21:24)
[2020-09-20] MEDS: Tamsulosin HCl 0.4 MG Capsule PO (11:49)
[2020-09-20] MEDS: Insulin Lispro 100 UNIT/ML INSULN.PEN SC (11:59)
[2020-09-20] MEDS: Heparin Injection (Vial) 5,000 UNIT/ML VIAL 5000 UNIT SC ×2 (11:59→21:24)
[2020-09-20 13:06] LABS: Bedside Glucose 185 mg/dL (70-110)
--- NOTE | 2020-09-20 13:41 | PN.RENAL_ITS ---
Subjective Subjective no new complaints. fever better. no edema Objective Data Objective Data Vital Signs: Vital Signs Temp Pulse Resp BP Pulse Ox 98.3 F 86 12 127/58 H 96 09/20/20 08:24 09/20/20 11:47 09/20/20 08:24 09/20/20 11:47 09/20/20 08:24 Oxygen Flow Rate (L/min) 2 Oxygen Delivery Method Room Air Weight: 74.3 kg Body Mass Index (BMI) 22.8 Intake & Output: Intake and Output for Last 24 Hours 09/18/20 09/19/20 09/20/20 23:59 23:59 23:59 Intake Total 1740 / 1800 3080 / 3200 2680 / 2680 Output Total 235 / 335 1650 / 1650 Balance 1740 / 1725 2845 / 2865 1030 / 1030 Medical Nutrition Assessment Dietitian: Nutrition Therapy Diagnosis Start: 09/19/20 11:51 Freq: Status: Active Protocol: Document 09/19/20 12:22 BP (Rec: 09/19/20 12:23 BP [id number]) Nutrition Malnutrition Evidence of Malnutrition Exists No Intake Problem Inadequate Energy Intake Etiology related to decreased appetite with acute illness Signs/Symptoms as evidenced by pt & family report 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 Status Active Problem Clinical Problem Altered Nutrient-Related Laboratory Values Etiology related to kidney dysfunction, CKD Signs/Symptoms as evidenced by GRF:10, BUN:57 , Creatinine:5.7. Status Active Problem Recommendation Dietitian Recommendations/Changes Will provide Cardiac: CHO controlled, sodium restricted diet- will defer protein restriction as pt & family report pt does not like/ consume protein sources regularly. Will provide glucerna 120 ml with pt meals. Lab / Micro Data Result Diagrams: 09/20/20 05:22 09/20/20 05:22 Labs: Laboratory Results - last 24 hr 09/19/20 17:35: POC Glucose 86 09/19/20 20:46: POC Glucose 113 H 09/20/20 05:22: WBC 11.0, RBC 2.68 L, Hgb 7.3 L, Hct 22.3 L, MCV 83.2, MCH 27.2, MCHC 32.7, RDW Std Deviation 43.5, RDW Coeff of Darian 14.2, Plt Count 100 L, MPV 9.1, Immature Gran % (Auto) 1.800 H, Neut % (Auto) 90.9 H, Lymph % (Auto) 1.8 L, [place] % (Auto) 5.4, Eos % (Auto) 0.0, Baso % (Auto) 0.1, Absolute Neuts (auto) 10.0 H, Absolute Lymphs (auto) 0.20 L, Nucleated RBC % 0 09/20/20 05:22: Sodium 137, Potassium 4.1, Chloride 107, Carbon Dioxide 17.0 L, Anion Gap 13, BUN 65 H, Creatinine 6.19 H, Estim Creat Clear Calc 9.36, Est GFR (MDRD) Af Amer 11 L, Est GFR (MDRD) Non-Af 9 L, BUN/Creatinine Ratio 10.5, Glucose 77, Calcium 7.5 L, Total Bilirubin 0.50, AST 33, ALT 24, Alkaline Phosphatase 264 H, Total Protein 5.3 L, Albumin 1.8 L, Globulin 3.5, Albumin/Globulin Ratio 0.5 L 09/20/20 06:41: POC Glucose 75 09/20/20 11:56: POC Glucose 185 H Micro: Microbiology 09/18/20 16:30 Urine, Clean Catch Urine Culture - Preliminary Gram variable lani 09/18/20 14:55 Blood Culture (Wb) - Left Hand Blood Culture - Preliminary 09/18/20 14:55 Blood Culture (Wb) - Anticubital Right Blood Culture - Preliminary 09/18/20 15:00 Interface Orders SARS-CoV-2 Antigen (Rapid) - Final Radiography Diagnostic Testing: Radiology Impression Renal Ultrasound 09/19/20 12:48 IMPRESSION: Stent seen on the left ureter seen. Continued moderate left hydronephrosis. Electronically Signed: Randy Aguillon MD at 17:06 EDT , Service support , Rhythm Strip Rhythm Strip: Sinus Tach Rate: 112 Ectopy: None Physical Exam Narrative Alert awake oriented x 3 no obvious distress no pallor no icterus no JVD s1s2 no murmurs lungs clear abdomen soft no organomegaly no edema no cyanosis akers + Assessment & Plan Assessment/Plan (1) DEISI (acute kidney injury): PLAN: Baseline creatinine last year was around 1.6, recently lowest creatinine was 2.0 on August 22. I would assume this is his new baseline. His creatinine was up to 2.6 on September 11 and now worsening. history of prostate surgery, requiring self catheterizations. Currently has a Akers catheter in, urine output is better today. Previous renal ultrasound did show some hydronephrosis but this is to be expected in the setting of neurogenic bladder. renal US is about the same. Most likely ATN in the setting of sepsis. Antibiotic management as per primary. No acute indications for dialysis today. since urine output is better, likely will get better. hold HD. if bicarbonate lower tomorrow will switch fluids to bicarbonate based IV fluids dw family at bedside (2) Acute on chronic renal insufficiency:
[2020-09-20 16:11] LABS: Bedside Glucose 137 mg/dL (70-110)
--- NOTE | 2020-09-20 17:16 | PCM.PN.ID ---
Physical Exam Narrative Feeling better, no fever since last evening. No abd pain. Const alert and no apparent distress General Appearance: cooperative Resp normal air movement and clear to auscultation bilaterally Cardio regular rate and regular rhythm GI normal to inspection, nondistended, normoactive bowel sounds Skin no rashes or lesions noted ID ID: Route of nutrition/ use of supplements: [] Nutritional Intake: [] IV Site: [] Judd Catheter: [] Assessment & Plan Assessment/Plan (1) Sepsis: QUALIFIERS: Sepsis type: sepsis due to unspecified organism Sepsis acute organ dysfunction status: unspecified Qualified Code(s): A41.9 - Sepsis, unspecified organism (2) Bacteremia due to Gram-negative bacteria: PLAN: Bcx with GPR and GNR. On zosyn, will continue. Renal u/s done. Covid vaccinated, Ag neg here. Will follow
--- NOTE | 2020-09-20 18:27 | PCM.PN.HOSP ---
Subjective Subjective Patient was seen and examined today, his hemoglobin this morning was 7.3, patient's creatinine today was 6.19 and BUN was 65. Patient's preliminary urine culture grew out a gram variable lani. Patient has no complaints of any shortness of breath or chest discomfort at this time. Objective Data Objective Data Vital Signs: Vital Signs Temp Pulse Resp BP Pulse Ox 98.2 F 95 16 134/68 H 98 09/20/20 15:32 09/20/20 15:32 09/20/20 15:32 09/20/20 15:32 09/20/20 15:32 Oxygen Flow Rate (L/min) 2 Oxygen Delivery Method Room Air Weight: 74.3 kg Body Mass Index (BMI) 22.8 Intake & Output: Intake and Output for Last 24 Hours 09/18/20 09/19/20 09/20/20 23:59 23:59 23:59 Intake Total 1740 / 1800 3080 / 3200 3680 / 3680 Output Total 235 / 335 1800 / 1800 Balance 1740 / 1725 2845 / 2865 1880 / 1880 Medical Nutrition Assessment Dietitian: Nutrition Therapy Diagnosis Start: 09/19/20 11:51 Freq: Status: Active Protocol: Document 09/19/20 12:22 BP (Rec: 09/19/20 12:23 BP [id number]) Nutrition Malnutrition Evidence of Malnutrition Exists No Intake Problem Inadequate Energy Intake Etiology related to decreased appetite with acute illness Signs/Symptoms as evidenced by pt & family report pt consuming <75% of meals served x 2 days attending ambulatory care and reports pt consumed 50% of b- fast 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 Status Active Problem Clinical Problem Altered Nutrient-Related Laboratory Values Etiology related to kidney dysfunction, CKD Signs/Symptoms as evidenced by GRF:10, BUN:57 , Creatinine:5.7. Status Active Problem Recommendation Dietitian Recommendations/Changes Will provide Cardiac: CHO controlled, sodium restricted diet- will defer protein restriction as pt & family report pt does not like/ consume protein sources regularly. Will provide glucerna 120 ml with pt meals. Lab / Micro Data Result Diagrams: 09/20/20 05:22 09/20/20 05:22 Labs: Laboratory Results - last 24 hr 09/19/20 20:46: POC Glucose 113 H 09/20/20 05:22: WBC 11.0, RBC 2.68 L, Hgb 7.3 L, Hct 22.3 L, MCV 83.2, MCH 27.2, MCHC 32.7, RDW Std Deviation 43.5, RDW Coeff of Darian 14.2, Plt Count 100 L, MPV 9.1, Immature Gran % (Auto) 1.800 H, Neut % (Auto) 90.9 H, Lymph % (Auto) 1.8 L, [place] % (Auto) 5.4, Eos % (Auto) 0.0, Baso % (Auto) 0.1, Absolute Neuts (auto) 10.0 H, Absolute Lymphs (auto) 0.20 L, Nucleated RBC % 0 09/20/20 05:22: Sodium 137, Potassium 4.1, Chloride 107, Carbon Dioxide 17.0 L, Anion Gap 13, BUN 65 H, Creatinine 6.19 H, Estim Creat Clear Calc 9.36, Est GFR (MDRD) Af Amer 11 L, Est GFR (MDRD) Non-Af 9 L, BUN/Creatinine Ratio 10.5, Glucose 77, Calcium 7.5 L, Total Bilirubin 0.50, AST 33, ALT 24, Alkaline Phosphatase 264 H, Total Protein 5.3 L, Albumin 1.8 L, Globulin 3.5, Albumin/Globulin Ratio 0.5 L 09/20/20 06:41: POC Glucose 75 09/20/20 11:56: POC Glucose 185 H 09/20/20 16:01: POC Glucose 137 H Micro: Microbiology 09/18/20 14:55 Blood Culture (Wb) - Left Hand Blood Culture - Preliminary Gram positive lani 09/18/20 14:55 Blood Culture (Wb) - Anticubital Right Blood Culture - Preliminary Gram positive lani 09/18/20 16:30 Urine, Clean Catch Urine Culture - Preliminary Gram variable lani 09/18/20 15:00 Interface Orders SARS-CoV-2 Antigen (Rapid) - Final Rhythm Strip Rhythm Strip: Sinus Tach Rate: 112 Ectopy: None Physical Exam Narrative Const alert, oriented x3, no apparent distress and average body habitus HEENT head/scalp atraumatic and moist oral mucous membranes Head and Scalp: normocephalic Eyes PERRL, EOMs intact bilaterally and conjunctivae normal Neck no lymphadenopathy, supple and no JVD Resp normal respiratory effort, no retractions, no use of accessory muscles and clear to auscultation bilaterally Cardio regular rate, regular rhythm, S1 normal heart sound, S2 normal heart sound, no gallops and no clicks GI normal to inspection, nondistended, normoactive bowel sounds, soft to palpation, non-tender and non-distended Extremity normal to inspection and no clubbing, cyanosis or edema Skin no rashes or lesions noted, no wounds, skin turgor normal and no jaundice Neuro oriented x3, CN's II-XII intact bilaterally and no focal motor deficits Sensorium / Orientation: awake, alert and oriented to person Psych affect normal Assessment & Plan Assessment/Plan (1) Bacteremia due to Gram-negative bacteria: (2) Complicated acute cystitis: (3) Recent DEISI on CKD: (4) Sepsis: QUALIFIERS: Sepsis type: sepsis due to unspecified organism Sepsis acute organ dysfunction status: unspecified Qualified Code(s): A41.9 - Sepsis, unspecified organism PLAN: 1. Sepsis secondary to complicated acute cystitis -Continue antibiotic coverage per ID 2. Acute kidney injury superimposed on chronic kidney disease stage IIIb-urology does not feel the patient's stents need to be changed at this time, nephrology is monitoring the patient's renal function 3. Hypertension - 4. Diabetes mellitus-continue to monitor blood sugars 5. History of prostate cancer -Patient currently self caths at home, urinary catheter placed in ER, will continue -Continue tamsulosin 6. History of colorectal cancer with partial colectomy -Continue daily loperamide for loose stools #7 anemia secondary to chronic renal disease, CBC will be rechecked tomorrow, patient may need a blood transfusion if his hemoglobin drops further. Charges/Coding Visit Charges Inpatient E&M: 81110 Subs Hosp L2
[2020-09-20] MEDS: Atorvastatin Calcium 10 MG Tablet PO (21:23)
[2020-09-20 21:35] LABS: Bedside Glucose 147 mg/dL (70-110)
[2020-09-21] VITALS (12 sets, daily range): BP systolic 124–162; BP diastolic 66–75; PULSE 87–107; RESP 12–18; TEMP 36.8–37.3; O2SAT 93–98
[2020-09-21 06:09] LABS: Absolute Lymphocyte Count 0.49 X10^3/uL (0.83-4.51); Absolute Neutrophil Count 9.6 X10^3/uL (2.0-7.7); Basophil# 0.02 X10^3/uL; Basophil% 0.2 % (0-1); Hematocrit 25.6 % (40-54); Hemoglobin 8.4 g/dL (13.0-16.5); Lymphocyte # 0.49 X10^3/ul (0.83-4.51); Lymphocyte % 4.5 % (19-41); Mean Corp Hgb Conc 32.8 g/dL (32-36); Mean Corpuscular Hgb 27.1 pg (27.0-32.0); Mean Corpuscular Volume 82.6 fL (80-94); Mean Platelet Vol. 9.4 fl (6.2-12.0); Monocyte# 0.78 X10^3/uL; Monocyte% 7.1 % (0-10); NRBC Flagged by Analyzer 0 % (0-5); Neutrophil # 9.57 X10^3/uL (2.7-7.7); POSITIVE DIFFERENTIAL YES; Platelet Count 144 K/mm3 (150-450); RBC Distribution Width CV 14.6 % (11.6-14.6); RBC Distribution Width SD 44.1 fl (35.1-43.9)
[2020-09-21 06:17] LABS: Differential Indicated SCAN CRITERIA MET
[2020-09-21 06:33] LABS: ALB/GLOB Ratio 0.5 RATIO (0.9-2.4); AST(SGOT) 24 U/L (15-37); Alanine Aminotransfer ALT/SGPT 26 U/L (16-61); Alkaline Phosphatase 303 U/L (45-117); Anion Gap 13 (5-15); BUN 67 mg/dL (7-18); BUN/Creat Ratio 12.5 RATIO (10-20); Calcium,Total 8.1 mg/dL (8.5-10.1); Chloride 108 mmol/L (98-107); Creatinine, Serum 5.36 mg/dL (0.70-1.30); EST Glomerular Filtration Rate 11 mL/min (>60); Est Glom Filt Rate - Afr Amer 13 mL/min (>60); Estimated Creatinine Clearance 10.81 ml/min; Glucose 125 mg/dL (74-106); Potassium 4.1 mmol/L (3.5-5.1); Sodium Level 138 mmol/L (136-145)
[2020-09-21 07:10] LABS: Bedside Glucose 126 mg/dL (70-110)
[2020-09-21] MEDS: Cholecalciferol (VIT D3) 25 MCG TABLET (1,000 UNITS) PO (09:09)
[2020-09-21] MEDS: Acetaminophen 500 MG Tablet 1000 MG PO (09:10)
[2020-09-21] MEDS: hydrALAZINE 50 MG Tablet PO ×2 (09:10→20:59)
[2020-09-21] MEDS: Tamsulosin HCl 0.4 MG Capsule PO (09:10)
[2020-09-21] MEDS: Loperamide 2 MG Capsule PO ×2 (09:10→20:59)
[2020-09-21] MEDS: Heparin Injection (Vial) 5,000 UNIT/ML VIAL 5000 UNIT SC ×2 (09:31→21:00)
[2020-09-21 10:16] LABS: Bedside Glucose 216 mg/dL (70-110)
--- NOTE | 2020-09-21 10:16 | PCM.PN.REN ---
Subjective Subjective Following for acute kidney injury on chronic kidney disease. The patient denies chest pain, shortness of breath, or nausea. Appetite remains poor. There is leakage of urine around the meatus and Judd catheter. Objective Data Objective Data Vital Signs: Vital Signs Temp Pulse Resp BP Pulse Ox 98.8 F 107 H 16 151/71 H 95 09/21/20 09:04 09/21/20 09:10 09/21/20 09:04 09/21/20 09:10 09/21/20 09:04 Oxygen Flow Rate (L/min) 2 Oxygen Delivery Method Room Air Weight: 78.8 kg Body Mass Index (BMI) 22.8 Intake & Output: Intake and Output for Last 24 Hours 09/19/20 09/20/20 09/21/20 23:59 23:59 23:59 Intake Total 3080 / 3200 4015 / 4015 835 / 835 Output Total 235 / 335 1999 / 1999 Balance 2845 / 2865 2014 835 / 835 Medical Nutrition Assessment Dietitian: Nutrition Therapy Diagnosis Start: 09/19/20 11:51 Freq: Status: Active Protocol: Document 09/19/20 12:22 BP (Rec: 09/19/20 12:23 BP [id number]) Nutrition Malnutrition Evidence of Malnutrition Exists No Intake Problem Inadequate Energy Intake Etiology related to decreased appetite with acute illness Signs/Symptoms as evidenced by pt & family report 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 Status Active Problem Clinical Problem Altered Nutrient-Related Laboratory Values Etiology related to kidney dysfunction, CKD Signs/Symptoms as evidenced by GRF:10, BUN:57 , Creatinine:5.7. Status Active Problem Recommendation Dietitian Recommendations/Changes Will provide Cardiac: CHO controlled, sodium restricted diet- will defer protein restriction as pt & family report pt does not like/ consume protein sources regularly. Will provide glucerna 120 ml with pt meals. Lab / Micro Data Result Diagrams: 09/21/20 05:50 09/21/20 05:50 Labs: Laboratory Results - last 24 hr 09/20/20 11:56: POC Glucose 185 H 09/20/20 16:01: POC Glucose 137 H 09/20/20 21:20: POC Glucose 147 H 09/21/20 05:50: WBC 11.0, RBC 3.10 L, Hgb 8.4 L, Hct 25.6 L, MCV 82.6, MCH 27.1, MCHC 32.8, RDW Std Deviation 44.1 H, RDW Coeff of Darian 14.6, Plt Count 144 L, MPV 9.4, Immature Gran % (Auto) 1.200 H, Neut % (Auto) 87.0 H, Lymph % (Auto) 4.5 L, [place] % (Auto) 7.1, Eos % (Auto) 0.0, Baso % (Auto) 0.2, Absolute Neuts (auto) 9.6 H, Absolute Lymphs (auto) 0.49 L, Nucleated RBC % 0 09/21/20 05:50: Sodium 138, Potassium 4.1, Chloride 108 H, Carbon Dioxide 17.0 L, Anion Gap 13, BUN 67 H, Creatinine 5.36 H, Estim Creat Clear Calc 10.81, Est GFR (MDRD) Af Amer 13 L, Est GFR (MDRD) Non-Af 11 L, BUN/Creatinine Ratio 12.5, Glucose 125 H, Calcium 8.1 L, Total Bilirubin 0.40, AST 24, ALT 26, Alkaline Phosphatase 303 H, Total Protein 6.0 L, Albumin 2.0 L, Globulin 4.0, Albumin/Globulin Ratio 0.5 L 09/21/20 07:03: POC Glucose 126 H 09/21/20 09:34: POC Glucose 216 H Micro: Microbiology 09/18/20 16:30 Urine, Clean Catch Urine Culture - Final Lactobacillus sp. 09/18/20 14:55 Blood Culture (Wb) - Anticubital Right Blood Culture - Preliminary Lactobacillus gasseri 09/18/20 14:55 Blood Culture (Wb) - Left Hand Blood Culture - Preliminary Gram positive lani 09/18/20 15:00 Interface Orders SARS-CoV-2 Antigen (Rapid) - Final Rhythm Strip Rhythm Strip: Sinus Tach Rate: 112 Ectopy: None Physical Exam Narrative General: Alert and oriented x3, no apparent distress HEENT: Normocephalic, atraumatic. Mucous membrane moist. Heart: Normal S1, S2. No rubs or murmurs. Lungs: Clear to auscultation anteriorly. Abdomen: Normal bowel sound, soft, nontender. No guarding or rebound. Extremity: No clubbing or cyanosis. 2+ edema in the lower extremity. Assessment & Plan Assessment/Plan (1) DEISI (acute kidney injury): PLAN: Renal function is better. Suspect DEISI is more likely due to ATN rather than obstruction. Since renal function is improving, we can remove Judd catheter since it is leaking. We can go back to clean intermittent catheterization (CIC) regimen. Since his oral intake is still poor, I will continue the patient on IV fluid but at a lower rate. We will need to monitor his volume status since he has some mild edema. There is no need for kidney replacement therapy. Current medications are reviewed and are all appropriately dosed for his current creatinine clearance. (2) Chronic kidney disease, stage 3b: PLAN: The patient has a baseline serum creatinine of around 2 to 2.5 mg/dL. He is in stage IIIb CKD at baseline. The patient has chronic urinary retention and requires CIC 3 times a day at home. 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 (3) Hypertension: PLAN: BP is a little higher today than previously. Continue hydralazine. I will cut back on IV fluid. (4) Severe sepsis: PLAN: The patient has Lactobacillus gasseri in both the urine and blood. He is on Zosyn.
[2020-09-21] MEDS: 0.9% Normal Saline 1,000 ML 100 ML IV (10:19)
--- NOTE | 2020-09-21 10:39 | CON.PCM.UR_ITS ---
Assessment & Plan Assessment/Plan (1) Hydronephrosis: QUALIFIERS: Hydronephrosis type: other Qualified Code(s): N13.39 - Other hydronephrosis PLAN: Creatinine improving good urine output I expect the creatinine to improve with time no intervention at this point stents are working. HPI Consult Data Date of Consult: 09/21/20 HPI Narrative HPI Narrative: ALEA SALGADO, is a 79 M who presents, admitted for urosepsis patient is improving [facility] Medical History (Updated 09/21/20 @ 10:[address] Francisca Wheat MD) Anemia Cancer Cancer of prostate Cancer of rectum Chronic kidney disease Chronic kidney disease, stage 3b Current use of insulin Diabetes Former smoker H/O fungal disease Hearing loss, left Hearing loss, right High cholesterol History of immunosuppression therapy Hypertension Kidney disease Osteoporosis Restless legs Self-catheterizes urinary bladder Tendonitis of ankle Wears hearing aid in both ears Home Medications cholecalciferol (vitamin D3) 1,000 unit PO DAILY 12/08/19 [History Last Taken 09/18/20] loperamide 2 mg PO BID 12/08/19 [History Last Taken 09/18/20] hydralazine 50 mg PO BID #60 tablet 05/07/20 [Rx Last Taken 09/18/20] tamsulosin 0.4 mg PO DAILY #30 cap 05/07/20 [Rx Last Taken 09/18/20] atorvastatin 10 mg PO QHS 07/03/20 [History Last Taken 09/17/20] insulin glargine 10 units SC DAILY 07/03/20 [History Last Taken 09/18/20] acetaminophen [Tylenol Extra Strength] 1,000 mg PO DAILY 09/18/20 [History Last Taken 09/18/20] ciprofloxacin HCl 500 mg PO BID 09/18/20 [History Last Taken 09/17/20] diphenhydramine-acetaminophen [Tylenol PM Extra Strength] 2 tab PO QHS PRN 09/18/20 [History Last Taken 09/17/20] Allergy/AdvReac Type Severity Reaction Status Date / Time No Known Allergies Allergy Verified 09/18/20 13:11 Family History (Updated 09/18/20 @ 17:32 by LANEY Jaquez) Mother Diabetes Father CVA (cerebral vascular accident) Sister Heart disease Brother Heart disease Surgical History H/O partial resection of colon History of renal stent S/P TURP (status post transurethral resection of prostate) Social History (Updated 09/18/20 @ 17:32 by LANEY Jaquez) Smoking Status: Former smoker alcohol intake: never substance use type: does not use Physical Exam Const alert and oriented x3 General Appearance: cooperative HEENT normocephalic, head/scalp atraumatic, EAC's normal and TM's normal bilaterally Eyes PERRL and EOMs intact bilaterally Pupil: sluggish Neck no lymphadenopathy, supple and no JVD General: trachea midline Lymph Lymphatic: no lymphadenopathy noted, lymphedema and lymphadenopathy Resp normal respiratory effort, normal air movement and clear to auscultation bilaterally Cardio regular rate, regular rhythm and peripheral pulses 2+ throughout GI soft to palpation, non-tender and non-distended Extremity normal capillary refill and no clubbing, cyanosis or edema General Extremity: no tenderness to palpation of joints or extremities Skin no rashes or lesions noted General Skin Exam: turgor normal Lesions: no lesions Rashes: no rashes Neuro CN's II-XII intact bilaterally Speech: speech normal Motor Exam: strength 5/5 throughout; Negative for general weakness Psych thought process normal, cooperative and affect normal Appearance: appropriate Medical Records Data Medical Nutrition Assessment Dietitian: Nutrition Therapy Diagnosis Start: 09/19/20 11:51 Freq: Status: Active Protocol: Document 09/19/20 12:22 BP (Rec: 09/19/20 12:23 BP [id number]) Nutrition Malnutrition Evidence of Malnutrition Exists No Intake Problem Inadequate Energy Intake Etiology related to decreased appetite with acute illness Signs/Symptoms as evidenced by pt & family report 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 Status Active Problem Clinical Problem Altered Nutrient-Related Laboratory Values Etiology related to kidney dysfunction, CKD Signs/Symptoms as evidenced by GRF:10, BUN:57 , Creatinine:5.7. Status Active Problem Recommendation Dietitian Recommendations/Changes Will provide Cardiac: CHO controlled, sodium restricted diet- will defer protein restriction as pt & family report pt does not like/ consume protein sources regularly. Will provide glucerna 120 ml with pt meals. Lab / Micro Data Result Diagrams: 09/21/20 05:50 09/21/20 05:50 Labs: Laboratory Results - last 24 hr 09/20/20 11:56: POC Glucose 185 H 09/20/20 16:01: POC Glucose 137 H 09/20/20 21:20: POC Glucose 147 H 09/21/20 05:50: WBC 11.0, RBC 3.10 L, Hgb 8.4 L, Hct 25.6 L, MCV 82.6, MCH 27.1, MCHC 32.8, RDW Std Deviation 44.1 H, RDW Coeff of Darian 14.6, Plt Count 144 L, MPV 9.4, Immature Gran % (Auto) 1.200 H, Neut % (Auto) 87.0 H, Lymph % (Auto) 4.5 L, [place] % (Auto) 7.1, Eos % (Auto) 0.0, Baso % (Auto) 0.2, Absolute Neuts (auto) 9.6 H, Absolute Lymphs (auto) 0.49 L, Nucleated RBC % 0 09/21/20 05:50: Sodium 138, Potassium 4.1, Chloride 108 H, Carbon Dioxide 17.0 L , Anion Gap 13, BUN 67 H, Creatinine 5.36 H, Estim Creat Clear Calc 10.81, Est GFR (MDRD) Af Amer 13 L, Est GFR (MDRD) Non-Af 11 L, BUN/Creatinine Ratio 12.5, Glucose 125 H, Calcium 8.1 L, Total Bilirubin 0.40, AST 24, ALT 26, Alkaline Phosphatase 303 H, Total Protein 6.0 L, Albumin 2.0 L, Globulin 4.0, Albumin/Globulin Ratio 0.5 L 09/21/20 07:03: POC Glucose 126 H 09/21/20 09:34: POC Glucose 216 H Micro: Microbiology 09/18/20 16:30 Urine, Clean Catch Urine Culture - Final Lactobacillus sp. 09/18/20 14:55 Blood Culture (Wb) - Anticubital Right Blood Culture - Preliminary Lactobacillus gasseri 09/18/20 14:55 Blood Culture (Wb) - Left Hand Blood Culture - Preliminary Gram positive lani Rhythm Strip Rhythm Strip: Sinus Tach Rate: 112 Ectopy: None
[2020-09-21] MEDS: 0.9% Normal Saline 1,000 ML 75 ML IV (10:45)
[2020-09-21] MEDS: Insulin Lispro 100 UNIT/ML INSULN.PEN SC ×3 (12:17→21:00)
[2020-09-21 12:26] LABS: Bedside Glucose 210 mg/dL (70-110)
--- NOTE | 2020-09-21 15:37 | PN.HOSP_ITS ---
Subjective Subjective Patient was seen and examined today, his hemoglobin is 8.4. Patient's preliminary blood culture was positive for lactobacillus, his urine was also positive for lactobacillus. Patient is currently on Zosyn, I talked with infectious diseases briefly about his culture results. Also talked briefly with nephrology about his care, nephrology said it was okay to discontinue the patient's Judd and let him self catheterize. They also adjusted his IV fluids. Objective Data Objective Data Vital Signs: Vital Signs Temp Pulse Resp BP Pulse Ox 98.5 F 96 16 124/66 H 95 09/21/20 13:21 09/21/20 13:21 09/21/20 13:21 09/21/20 13:21 09/21/20 13:21 Oxygen Flow Rate (L/min) 2 Oxygen Delivery Method Room Air Weight: 78.8 kg Body Mass Index (BMI) 22.8 Intake & Output: Intake and Output for Last 24 Hours 09/19/20 09/20/20 09/21/20 23:59 23:59 23:59 Intake Total 3080 / 3200 4015 / 4015 1609.17 / 1609.17 Output Total 235 / 335 1999 / 1999 Balance 2845 / 2865 2014 1609.17 / 1609.17 Medical Nutrition Assessment Dietitian: Nutrition Therapy Diagnosis Start: 09/19/20 11:51 Freq: Status: Active Protocol: Document 09/19/20 12:22 BP (Rec: 09/19/20 12:23 BP [id number]) Nutrition Malnutrition Evidence of Malnutrition Exists No Intake Problem Inadequate Energy Intake Etiology related to decreased appetite with acute illness Signs/Symptoms as evidenced by pt & family report 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 Status Active Problem Clinical Problem Altered Nutrient-Related Laboratory Values Etiology related to kidney dysfunction, CKD Signs/Symptoms as evidenced by GRF:10, BUN:57 , Creatinine:5.7. Status Active Problem Recommendation Dietitian Recommendations/Changes Will provide Cardiac: CHO controlled, sodium restricted diet- will defer protein restriction as pt & family report pt does not like/ consume protein sources regularly. Will provide glucerna 120 ml with pt meals. Lab / Micro Data Result Diagrams: 09/21/20 05:50 09/21/20 05:50 Labs: Laboratory Results - last 24 hr 09/20/20 16:01: POC Glucose 137 H 09/20/20 21:20: POC Glucose 147 H 09/21/20 05:50: WBC 11.0, RBC 3.10 L, Hgb 8.4 L, Hct 25.6 L, MCV 82.6, MCH 27.1, MCHC 32.8, RDW Std Deviation 44.1 H, RDW Coeff of [place]arian 14.6, Plt Count 144 L, MPV 9.4, Immature Gran % (Auto) 1.200 H, Neut % (Auto) 87.0 H, Lymph % (Auto) 4.5 L, [place] % (Auto) 7.1, Eos % (Auto) 0.0, Baso % (Auto) 0.2, Absolute Neuts (auto) 9.6 H, Absolute Lymphs (auto) 0.49 L, Nucleated RBC % 0 09/21/20 05:50: Sodium 138, Potassium 4.1, Chloride 108 H, Carbon Dioxide 17.0 L , Anion Gap 13, BUN 67 H, Creatinine 5.36 H, Estim Creat Clear Calc 10.81, Est GFR (MDRD) Af Amer 13 L, Est GFR (MDRD) Non-Af 11 L, BUN/Creatinine Ratio 12.5, Glucose 125 H, Calcium 8.1 L, Total Bilirubin 0.40, AST 24, ALT 26, Alkaline Phosphatase 303 H, Total Protein 6.0 L, Albumin 2.0 L, Globulin 4.0, Albumin/Globulin Ratio 0.5 L 09/21/20 07:03: POC Glucose 126 H 09/21/20 09:34: POC Glucose 216 H 09/21/20 12:14: POC Glucose 210 H Micro: Microbiology 09/18/20 16:30 Urine, Clean Catch Urine Culture - Final Lactobacillus sp. 09/18/20 14:55 Blood Culture (Wb) - Anticubital Right Blood Culture - Preliminary Lactobacillus gasseri 09/18/20 14:55 Blood Culture (Wb) - Left Hand Blood Culture - Preliminary Gram positive lani 09/18/20 15:00 Interface Orders SARS-CoV-2 Antigen (Rapid) - Final Rhythm Strip Rhythm Strip: Sinus Tach Rate: 112 Ectopy: None Physical Exam Narrative Physical Exam Narrative Const alert, oriented x3, no apparent distress and average body habitus HEENT head/scalp atraumatic and moist oral mucous membranes Head and Scalp: normocephalic Eyes PERRL, EOMs intact bilaterally and conjunctivae normal Neck no lymphadenopathy, supple and no JVD Resp normal respiratory effort, no retractions, no use of accessory muscles and clear to auscultation bilaterally Cardio regular rate, regular rhythm, S1 normal heart sound, S2 normal heart sound, no gallops and no clicks GI normal to inspection, nondistended, normoactive bowel sounds, soft to palpation, non-tender and non-distended Extremity normal to inspection and no clubbing, cyanosis or edema Skin no rashes or lesions noted, no wounds, skin turgor normal and no jaundice Neuro oriented x3, CN's II-XII intact bilaterally and no focal motor deficits Sensorium / Orientation: awake, alert and oriented to person Psych affect normal Assessment & Plan Assessment/Plan (1) Gram-positive bacteremia: (2) Bacteremia due to Gram-negative bacteria: (3) Complicated acute cystitis: (4) Recent DEISI on CKD: (5) Sepsis: QUALIFIERS: Sepsis type: sepsis due to unspecified organism Sepsis acute organ dysfunction status: unspecified Qualified Code(s): A41.9 - Sepsis, unspecified organism PLAN: 1. Sepsis secondary to complicated acute cystitis-this appears to be secondary to Lactobacillus, -Continue antibiotic coverage per ID, patient is currently on Zosyn 2. Acute kidney injury superimposed on chronic kidney disease stage IIIb- urology does not feel the patient's stents need to be changed at this time, nephrology is monitoring the patient's renal function, creatinine today was 5.36. 3. Hypertension - 4. Diabetes mellitus-continue to monitor blood sugars 5. History of prostate cancer -Patient currently self caths at home, again, patient's Judd was removed today and he will self catheterize for the remainder of his hospital stay. 6. History of colorectal cancer with partial colectomy -Continue daily loperamide for loose stools #7 anemia secondary to chronic renal disease, open appears to be stable at this time, I will not recheck his hemoglobin tomorrow. Charges/Coding Visit Charges Inpatient E&M: 28348 Subs Hosp L2
[2020-09-21 16:56] LABS: Bedside Glucose 259 mg/dL (70-110)
[2020-09-21] MEDS: Atorvastatin Calcium 10 MG Tablet PO (20:59)
[2020-09-21 22:00] LABS: Bedside Glucose 203 mg/dL (70-110)
[2020-09-22] VITALS (11 sets, daily range): BP systolic 125–161; BP diastolic 69–85; PULSE 79–96; RESP 16–18; TEMP 36.2–37.7; O2SAT 94–97
[2020-09-22] MEDS: 0.9% Normal Saline 1,000 ML 75 ML IV ×2 (02:01→13:14)
[2020-09-22 06:50] LABS: Bedside Glucose 119 mg/dL (70-110)
[2020-09-22] MEDS: Tamsulosin HCl 0.4 MG Capsule PO (08:44)
[2020-09-22] MEDS: hydrALAZINE 50 MG Tablet PO ×2 (08:44→21:48)
[2020-09-22] MEDS: Acetaminophen 500 MG Tablet 1000 MG PO (08:45)
[2020-09-22] MEDS: Heparin Injection (Vial) 5,000 UNIT/ML VIAL 5000 UNIT SC ×2 (08:45→21:47)
[2020-09-22] MEDS: Loperamide 2 MG Capsule PO ×2 (08:45→21:48)
[2020-09-22] MEDS: Cholecalciferol (VIT D3) 25 MCG TABLET (1,000 UNITS) PO (08:46)
[2020-09-22 11:16] LABS: Bedside Glucose 198 mg/dL (70-110)
--- NOTE | 2020-09-22 11:33 | PN.HOSP_ITS ---
Subjective Subjective Patient was seen and examined today, he does not complain of any fevers or chills, he has no complaints of any shortness of breath. I have ordered a BMP for the patient today. Objective Data Objective Data Vital Signs: Vital Signs Temp Pulse Resp BP Pulse Ox 98.1 F 82 18 148/72 H 96 09/22/20 08:32 09/22/20 08:44 09/22/20 08:32 09/22/20 08:44 09/22/20 08:32 Oxygen Flow Rate (L/min) 2 Oxygen Delivery Method Room Air Weight: 78.8 kg Body Mass Index (BMI) 22.8 Intake & Output: Intake and Output for Last 24 Hours 09/20/20 09/21/20 09/22/20 23:59 23:59 23:59 Intake Total 4015 / 4015 2129.17 / 2349.17 1208.75 / 1208.75 Output Total 1999 / 1999 950 / 1750 800 / 800 Balance 2014 1179.17 / 599.17 408.75 / 408.75 Medical Nutrition Assessment Dietitian: Nutrition Therapy Diagnosis Start: 09/19/20 11:51 Freq: Status: Active Protocol: Document 09/19/20 12:22 BP (Rec: 09/19/20 12:23 BP [id number]) Nutrition Malnutrition Evidence of Malnutrition Exists No Intake Problem Inadequate Energy Intake Etiology related to decreased appetite with acute illness Signs/Symptoms as evidenced by pt & family report 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 Status Active Problem Clinical Problem Altered Nutrient-Related Laboratory Values Etiology related to kidney dysfunction, CKD Signs/Symptoms as evidenced by GRF:10, BUN:57 , Creatinine:5.7. Status Active Problem Recommendation Dietitian Recommendations/Changes Will provide Cardiac: CHO controlled, sodium restricted diet- will defer protein restriction as pt & family report pt does not like/ consume protein sources regularly. Will provide glucerna 120 ml with pt meals. Lab / Micro Data Result Diagrams: 09/21/20 05:50 09/21/20 05:50 Labs: Laboratory Results - last 24 hr 09/21/20 12:14: POC Glucose 210 H 09/21/20 16:35: POC Glucose 259 H 09/21/20 20:54: POC Glucose 203 H 09/22/20 06:44: POC Glucose 119 H 09/22/20 11:09: POC Glucose 198 H Micro: Microbiology 09/18/20 14:55 Blood Culture (Wb) - Anticubital Right Blood Culture - Preliminary Prevotella species Lactobacillus sp. 09/18/20 14:55 Blood Culture (Wb) - Left Hand Blood Culture - Preliminary Prevotella species Lactobacillus sp. 09/18/20 16:30 Urine, Clean Catch Urine Culture - Final Lactobacillus sp. 09/18/20 15:00 Interface Orders SARS-CoV-2 Antigen (Rapid) - Final Rhythm Strip Rhythm Strip: Sinus Tach Rate: 112 Ectopy: None Physical Exam Const alert, oriented x3, no apparent distress and healthy appearing General Appearance: cooperative, well kempt and well developed Orientation / Consciousness: awake, oriented to person, oriented to place and oriented to time HEENT normocephalic, head/scalp atraumatic and moist oral mucous membranes Head and Scalp: normocephalic Eyes PERRL, EOMs intact bilaterally and conjunctivae normal Neck nuchal rigidity, supple, no JVD, thyroid normal and no carotid bruits General: trachea midline Resp normal respiratory effort, no retractions, no use of accessory muscles and clear to auscultation bilaterally Auscultation: Negative for rales, rhonchi or wheezes Cardio regular rate, regular rhythm, no murmurs, no rub and no gallops GI normal to inspection, nondistended, normoactive bowel sounds, soft to palpation, non-tender and non-distended Extremity no clubbing, cyanosis or edema Skin no rashes or lesions noted General Skin Exam: no breakdown Neuro oriented x3, CN's II-XII intact bilaterally, no focal motor deficits and no sensory deficits noted Sensorium / Orientation: awake and alert Speech: speech normal Psych thought process normal and affect normal Assessment & Plan Assessment/Plan (1) Gram-positive bacteremia: (2) Bacteremia due to Gram-negative bacteria: (3) Complicated acute cystitis: (4) Recent DEISI on CKD: (5) Sepsis: QUALIFIERS: Sepsis type: sepsis due to unspecified organism Sepsis acute organ dysfunction status: unspecified Qualified Code(s): A41.9 - Sepsis, unspecified organism PLAN: 1. Sepsis secondary to complicated acute cystitis-this appears to be secondary to Lactobacillus, -Continue antibiotic coverage per ID, patient is currently on Zosyn, patient will be evaluated tomorrow by ID 2. Acute kidney injury superimposed on chronic kidney disease stage IIIb- urology does not feel the patient's stents need to be changed at this time, nep hrology is monitoring the patient's renal function, I have ordered a BMP for the patient today. Again urology feels that his stents are currently working. 3. Hypertension - 4. Diabetes mellitus-continue to monitor blood sugars 5. History of prostate cancer -Patient currently self caths at home, again, he will self catheterize for the remainder of his hospital stay. 6. 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
[2020-09-22 12:13] LABS: Anion Gap 8 (5-15); BUN 71 mg/dL (7-18); BUN/Creat Ratio 13.4 RATIO (10-20); Chloride 110 mmol/L (98-107); EST Glomerular Filtration Rate 11 mL/min (>60); Est Glom Filt Rate - Afr Amer 14 mL/min (>60); Estimated Creatinine Clearance 10.93 ml/min; Glucose 222 mg/dL (74-106); Potassium 4.2 mmol/L (3.5-5.1); Sodium Level 137 mmol/L (136-145)
[2020-09-22] MEDS: Insulin Lispro 100 UNIT/ML INSULN.PEN SC ×2 (12:14→21:46)
[2020-09-22 16:55] LABS: Bedside Glucose 127 mg/dL (70-110)
--- NOTE | 2020-09-22 17:04 | PN.RENAL_ITS ---
Subjective Subjective no SOB. no nausea no vomiting Objective Data Objective Data Vital Signs: Vital Signs Temp Pulse Resp BP Pulse Ox 97.2 F L 88 18 125/69 H 97 09/22/20 14:30 09/22/20 15:00 09/22/20 14:30 09/22/20 14:30 09/22/20 14:30 Oxygen Flow Rate (L/min) 2 Oxygen Delivery Method Room Air Weight: 78.8 kg Body Mass Index (BMI) 22.8 Intake & Output: Intake and Output for Last 24 Hours 09/20/20 09/21/20 09/22/20 23:59 23:59 23:59 Intake Total 4015 / 4015 2129.17 / 2349.17 2340.00 / 2340.00 Output Total 1999 950 / 1750 1650 / 1650 Balance 2014 1179.17 / 599.17 690.00 / 690.00 Medical Nutrition Assessment Dietitian: Nutrition Therapy Diagnosis Start: 09/19/20 11:51 Freq: Status: Active Protocol: Document 09/19/20 12:22 BP (Rec: 09/19/20 12:23 BP [id number]) Nutrition Malnutrition Evidence of Malnutrition Exists No Intake Problem Inadequate Energy Intake Etiology related to decreased appetite with acute illness Signs/Symptoms as evidenced by pt & family report 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 Status Active Problem Clinical Problem Altered Nutrient-Related Laboratory Values Etiology related to kidney dysfunction, CKD Signs/Symptoms as evidenced by GRF:10, BUN:57 , Creatinine:5.7. Status Active Problem Recommendation Dietitian Recommendations/Changes Will provide Cardiac: CHO controlled, sodium restricted diet- will defer protein restriction as pt & family report pt does not like/ consume protein sources regularly. Will provide glucerna 120 ml with pt meals. Lab / Micro Data Result Diagrams: 09/21/20 05:50 09/22/20 11:56 Labs: Laboratory Results - last 24 hr 09/21/20 20:54: POC Glucose 203 H 09/22/20 06:44: POC Glucose 119 H 09/22/20 11:09: POC Glucose 198 H 09/22/20 11:56: Sodium 137, Potassium 4.2, Chloride 110 H, Carbon Dioxide 19.0 L , Anion Gap 8, BUN 71 H, Creatinine 5.30 H, Estim Creat Clear Calc 10.93, Est GFR (MDRD) Af Amer 14 L, Est GFR (MDRD) Non-Af 11 L, BUN/Creatinine Ratio 13.4, Glucose 222 H, Calcium 8.0 L 09/22/20 16:51: POC Glucose 127 H Micro: Microbiology 09/18/20 14:55 Blood Culture (Wb) - Anticubital Right Blood Culture - Preliminary Prevotella species Lactobacillus sp. 09/18/20 14:55 Blood Culture (Wb) - Left Hand Blood Culture - Preliminary Prevotella species Lactobacillus sp. 09/18/20 16:30 Urine, Clean Catch Urine Culture - Final Lactobacillus sp. 09/18/20 15:00 Interface Orders SARS-CoV-2 Antigen (Rapid) - Final Rhythm Strip Rhythm Strip: Sinus Tach Rate: 112 Ectopy: None Physical Exam Narrative General: Alert and oriented x3, no apparent distress HEENT: Normocephalic, atraumatic. Mucous membrane moist. Heart: Normal S1, S2. No rubs or murmurs. Lungs: Clear to auscultation anteriorly. Abdomen: Normal bowel sound, soft, nontender. No guarding or rebound. Extremity: No clubbing or cyanosis. 2+ edema in the lower extremity. Assessment & Plan Assessment/Plan (1) DEISI (acute kidney injury): PLAN: Renal function is better. Suspect DEISI is more likely due to ATN rather than obstruction. Since renal function improved. stable at 5.3 this am akers cath removed d/c IVF Contine intermittent catheterization (CIC) regimen. 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 Vallejo Wednesday . Ok to d/c patient in am if RFP sable or better. (2) Chronic kidney disease, stage 3b: PLAN: The patient has a baseline serum creatinine of around 2 to 2.5 mg/dL. He is in stage IIIb CKD at baseline. The patient has chronic urinary retention and requires CIC 3 times a day at home. CKD is due to obstructive u ropathy. (3) Hypertension: PLAN: BP is Ok. Continue hydralazine. stop IVF. (4) Severe sepsis: PLAN: The patient has Lactobacillus gasseri in both the urine and blood. He is on Zosyn.
[2020-09-22] MEDS: 0.9% Saline Lock 10 ML Syringe IV ×2 (20:27→21:52)
[2020-09-22] MEDS: Atorvastatin Calcium 10 MG Tablet PO (21:49)
[2020-09-22 22:45] LABS: Bedside Glucose 167 mg/dL (70-110)
[2020-09-23] VITALS (11 sets, daily range): BP systolic 121–157; BP diastolic 51–73; PULSE 78–100; RESP 16–20; TEMP 37.1–38.3; O2SAT 95–97
[2020-09-23] MEDS: Acetaminophen 325 MG Tablet 650 MG PO ×2 (03:17→21:30)
--- NOTE | 2020-09-23 07:37 | CON.PCM.UR_ITS ---
Assessment & Plan Assessment/Plan (1) Chronic kidney disease, stage 3b: PLAN: Patient presented with sepsis to the hospital with dehydration, causes of creatinine is probably prerenal mostly lately at this point no hydr onephrosis the right side moderate chronic hydronephrosis in the left side stents are in place in both working we will continue to follow. After discharge can follow-up with urology. (2) Gram-positive bacteremia: HPI Consult Data Date of Consult: 09/23/20 HPI Narrative HPI Narrative: 79-year-old male presents with acute kidney injury, and rising creatinine 5.3 slowly trending downward urine output stable creatinine ultrasound of the kidneys demonstrated right side no hydroleft side moderate hydrochronic and stable. [facility] Medical History (Updated 09/21/20 @ 15:[address] Serafin Craft, ) Anemia Cancer Cancer of prostate Cancer of rectum Chronic kidney disease Chronic kidney disease, stage 3b Current use of insulin Diabetes Former smoker H/O fungal disease Hearing loss, left Hearing loss, right High cholesterol History of immunosuppression therapy Hypertension Kidney disease Osteoporosis Restless legs Self-catheterizes urinary bladder Tendonitis of ankle Wears hearing aid in both ears Home Medications cholecalciferol (vitamin D3) 1,000 unit PO DAILY 12/08/19 [History Last Taken 09/18/20] loperamide 2 mg PO BID 12/08/19 [History Last Taken 09/18/20] hydralazine 50 mg PO BID #60 tablet 05/07/20 [Rx Last Taken 09/18/20] tamsulosin 0.4 mg PO DAILY #30 cap 05/07/20 [Rx Last Taken 09/18/20] atorvastatin 10 mg PO QHS 07/03/20 [History Last Taken 09/17/20] insulin glargine 10 units SC DAILY 07/03/20 [History Last Taken 09/18/20] acetaminophen [Tylenol Extra Strength] 1,000 mg PO DAILY 09/18/20 [History Last Taken 09/18/20] ciprofloxacin HCl 500 mg PO BID 09/18/20 [History Last Taken 09/17/20] diphenhydramine-acetaminophen [Tylenol PM Extra Strength] 2 tab PO QHS PRN 09/18/20 [History Last Taken 09/17/20] Allergy/AdvReac Type Severity Reaction Status Date / Time No Known Allergies Allergy Verified 09/18/20 13:11 Family History (Updated 09/18/20 @ 17:32 by LANEY Jaquez) Mother Diabetes Father CVA (cerebral vascular accident) Sister Heart disease Brother Heart disease Surgical History H/O partial resection of colon History of renal stent S/P TURP (status post transurethral resection of prostate) Social History (Updated 09/18/20 @ 17:32 by LANEY Jaquez) Smoking Status: Former smoker alcohol intake: never substance use type: does not use Medical Records Data Medical Nutrition Assessment Dietitian: Nutrition Therapy Diagnosis Start: 09/19/20 11:51 Freq: Status: Active Protocol: Document 09/19/20 12:22 BP (Rec: 09/19/20 12:23 BP [id number]) Nutrition Malnutrition Evidence of Malnutrition Exists No Intake Problem Inadequate Energy Intake Etiology related to decreased appetite with acute illness Signs/Symptoms as evidenced by pt & family report 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 Status Active Problem Clinical Problem Altered Nutrient-Related Laboratory Values Etiology related to kidney dysfunction, CKD Signs/Symptoms as evidenced by GRF:10, BUN:57 , Creatinine:5.7. Status Active Problem Recommendation Dietitian Recommendations/Changes Will provide Cardiac: CHO controlled, sodium restricted diet- will defer protein restriction as pt & family report pt does not like/ consume protein sources regularly. Will provide glucerna 120 ml with pt meals. Lab / Micro Data Result Diagrams: 09/21/20 05:50 09/22/20 11:56 Labs: Laboratory Results - last 24 hr 09/22/20 11:09: POC Glucose 198 H 09/22/20 11:56: Sodium 137, Potassium 4.2, Chloride 110 H, Carbon Dioxide 19.0 L , Anion Gap 8, BUN 71 H, Creatinine 5.30 H, Estim Creat Clear Calc 10.93, Est GFR (MDRD) Af Amer 14 L, Est GFR (MDRD) Non-Af 11 L, BUN/Creatinine Ratio 13.4, Glucose 222 H, Calcium 8.0 L 09/22/20 16:51: POC Glucose 127 H 09/22/20 21:43: POC Glucose 167 H Micro: Microbiology 09/18/20 14:55 Blood Culture (Wb) - Anticubital Right Blood Culture - Preliminary Prevotella species Lactobacillus sp. 09/18/20 14:55 Blood Culture (Wb) - Left Hand Blood Culture - Preliminary Prevotella species Lactobacillus sp. Rhythm Strip Rhythm Strip: Sinus Tach Rate: 112 Ectopy: None
--- NOTE | 2020-09-23 08:49 | PCM.PN.REN ---
Subjective Subjective no new events Objective Data Objective Data Vital Signs: Vital Signs Temp Pulse Resp BP Pulse Ox 98.8 F 95 16 142/51 H 96 09/23/20 08:02 09/23/20 08:02 09/23/20 08:02 09/23/20 08:02 09/23/20 08:02 Oxygen Flow Rate (L/min) 2 Oxygen Delivery Method Room Air Weight: 79.8 kg Body Mass Index (BMI) 22.8 Intake & Output: Intake and Output for Last 24 Hours 09/21/20 09/22/20 09/23/20 23:59 23:59 23:59 Intake Total 2129.17 / 2349.17 3122.50 / 3122.50 110 / 110 Output Total 950 / 1750 1950 / 1950 Balance 1179.17 / 599.17 1172.50 / 1172.50 110 / 110 Medical Nutrition Assessment Dietitian: Nutrition Therapy Diagnosis Start: 09/19/20 11:51 Freq: Status: Active Protocol: Document 09/19/20 12:22 BP (Rec: 09/19/20 12:23 BP [id number]) Nutrition Malnutrition Evidence of Malnutrition Exists No Intake Problem Inadequate Energy Intake Etiology related to decreased appetite with acute illness Signs/Symptoms as evidenced by pt & family report 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 Status Active Problem Clinical Problem Altered Nutrient-Related Laboratory Values Etiology related to kidney dysfunction, CKD Signs/Symptoms as evidenced by GRF:10, BUN:57 , Creatinine:5.7. Status Active Problem Recommendation Dietitian Recommendations/Changes Will provide Cardiac: CHO controlled, sodium restricted diet- will defer protein restriction as pt & family report pt does not like/ consume protein sources regularly. Will provide glucerna 120 ml with pt meals. Lab / Micro Data Result Diagrams: 09/21/20 05:50 09/22/20 11:56 Labs: Laboratory Results - last 24 hr 09/22/20 11:09: POC Glucose 198 H 09/22/20 11:56: Sodium 137, Potassium 4.2, Chloride 110 H, Carbon Dioxide 19.0 L, Anion Gap 8, BUN 71 H, Creatinine 5.30 H, Estim Creat Clear Calc 10.93, Est GFR (MDRD) Af Amer 14 L, Est GFR (MDRD) Non-Af 11 L, BUN/Creatinine Ratio 13.4, Glucose 222 H, Calcium 8.0 L 09/22/20 16:51: POC Glucose 127 H 09/22/20 21:43: POC Glucose 167 H Micro: Microbiology 09/18/20 14:55 Blood Culture (Wb) - Anticubital Right Blood Culture - Preliminary Prevotella species Lactobacillus sp. 09/18/20 14:55 Blood Culture (Wb) - Left Hand Blood Culture - Preliminary Prevotella species Lactobacillus sp. 09/18/20 16:30 Urine, Clean Catch Urine Culture - Final Lactobacillus sp. 09/18/20 15:00 Interface Orders SARS-CoV-2 Antigen (Rapid) - Final Rhythm Strip Rhythm Strip: Sinus Tach Rate: 112 Ectopy: None Physical Exam Narrative General: Alert and oriented x3, no apparent distress HEENT: Normocephalic, atraumatic. Mucous membrane moist. Heart: Normal S1, S2. No rubs or murmurs. Lungs: Clear to auscultation anteriorly. Abdomen: Normal bowel sound, soft, nontender. No guarding or rebound. Extremity: No clubbing or cyanosis. 2+ edema in the lower extremity. Assessment & Plan Assessment/Plan (1) DEISI (acute kidney injury): PLAN: Likely ATN in the setting of sepsis. Labs from today are pending. Creatinine was improving as of yesterday. Other electrolytes are acceptable. (2) Chronic kidney disease, stage 3b: PLAN: The patient has a baseline serum creatinine of around 2 to 2.5 mg/dL. He is in stage IIIb CKD at baseline. The patient has chronic urinary retention and requires CIC 3 times a day at home. 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 (3) Hypertension: PLAN: BP is Ok. (4) Severe sepsis: PLAN: The patient has Lactobacillus gasseri in both the urine and blood. He is on Zosyn.
[2020-09-23] MEDS: Tamsulosin HCl 0.4 MG Capsule PO (09:39)
[2020-09-23] MEDS: Acetaminophen 500 MG Tablet 1000 MG PO (09:39)
[2020-09-23] MEDS: hydrALAZINE 50 MG Tablet PO ×2 (09:39→21:32)
[2020-09-23] MEDS: Cholecalciferol (VIT D3) 25 MCG TABLET (1,000 UNITS) PO (09:39)
[2020-09-23] MEDS: Loperamide 2 MG Capsule PO ×2 (09:39→21:32)
[2020-09-23] MEDS: Heparin Injection (Vial) 5,000 UNIT/ML VIAL 5000 UNIT SC ×2 (09:39→21:30)
--- NOTE | 2020-09-23 10:09 | CT_ITS ---
INDICATION: bacteremia EXAMINATION: CT ABDOMEN AND PELVIS WITHOUT CONTRAST - CT Abdomen And Pelvis W/O Contrast Injection TECHNIQUE: Helically acquired images were obtained of the abdomen and pelvis without oral or IV contrast. A radiation dose optimization technique was used for this scan. IV Contrast dosage and agent: None. Oral contrast: None. COMPARISON: Previous CT scan of the abdomen and pelvis obtained on the 05/04/2020 FINDINGS: LOWER CHEST: Lung bases show moderate-sized bibasilar pleural effusions. LIVER: Homogeneous. No focal mass. GALLBLADDER AND BILIARY TREE: A calcified gallstone is identified.. No gallbladder distension or wall edema. No intra- or extrahepatic biliary ductal dilation. PANCREAS: No focal cystic or solid mass. SPLEEN: Normal size without focal cystic or solid mass. ADRENAL GLANDS: No nodules. 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 Bilateral ureteral stents are noted in place in with the mild left renal hydronephrosis. The stents extend down into the urinary bladder. PERITONEUM: A small amount of ascites is identified. There is some perivesical fluid seen around the urinary bladder with some inflammatory reaction possibly related to a previously UTI.. BOWEL: The appendix is not seen. No stomach or bowel distension. No focal inflammatory change. There are some surgical clips noted about the rectum at the rectosigmoid junction and some presacral soft tissue swelling is seen which was previously identified and is unchanged. LYMPH NODES: No enlarged mesenteric or retroperitoneal lymph nodes. VESSELS: Aorta is non-dilated. URINARY BLADDER: Contains bilateral ureteral stents. REPRODUCTIVE ORGANS: No pelvic masses. ABDOMINAL WALL: No discrete abdominal or pelvic wall hernia. BONES: There appears to be a sclerotic and blastic process involving the L5 and S1 segments of uncertain etiology. Radiation necrosis versus a blastic metastasis could give this appearance and this is unchanged. CT/Abdomen/Pel W ORAL Cont Only IMPRESSION: 1. [id number] sized bibasilar pleural effusions which have increased. 2. Bilateral renal stents are identified in place in this patient with unilateral right renal hypoplasia and mild left renal hydronephrosis. 3. A small amount of ascites is identified. 4. Perivesical fluid is identified in the retroperitoneum which has increased and underlying bladder infection is suspected. 5. Thickening of the presacral space of uncertain etiology with abnormal sclerosis of L5 and S1. It is uncertain whether this is due to prior radiation necrosis versus metastasis. In any event is unchanged. Electronically Signed: Vladimir Shaw DO at 15:48 EDT Tel , Service support ,
--- NOTE | 2020-09-23 10:12 | CASEMGMT ---
This RN CM to room to discuss discharge plan with pt. Pt is A/Ox4. Pt declines need for any further therapy(HHC/OP) at this time. Pt aware to call PCP once home if he changes his mind about further therapy, voices understanding. Pt voices no further questions/concerns/needs. SStaten GOPAL ANDERSON
[2020-09-23 10:21] LABS: Bedside Glucose 161 mg/dL (70-110)
[2020-09-23 10:21] LABS: Bedside Glucose 85 mg/dL (70-110)
--- NOTE | 2020-09-23 11:59 | PCM.PN.ID ---
Physical Exam Narrative Feeling better, mild nausea, no fever Const alert and no apparent distress General Appearance: cooperative Resp normal air movement and clear to auscultation bilaterally Cardio regular rate and regular rhythm GI normal to inspection, nondistended, normoactive bowel sounds Extremity no clubbing, cyanosis or edema Skin no rashes or lesions noted ID ID: Route of nutrition/ use of supplements: [] Nutritional Intake: [] IV Site: [] Judd Catheter: [] Assessment & Plan Assessment/Plan (1) Sepsis: QUALIFIERS: Sepsis type: sepsis due to unspecified organism Sepsis acute organ dysfunction status: unspecified Qualified Code(s): A41.9 - Sepsis, unspecified organism (2) Bacteremia due to Gram-negative bacteria: PLAN: Bcx with lactobacillus and prevotella. On zosyn, will continue. Renal u/s done. Covid vaccinated, Ag neg here. Concern for intra-abd source given bcx with anaerobe. Will check CT abd/pelvis with po contrast. Plan on d/c home with po augmentin 250mg bid for 7 more days. Will follow
[2020-09-23] MEDS: Insulin Lispro 100 UNIT/ML INSULN.PEN SC (12:14)
--- NOTE | 2020-09-23 12:55 | PN.HOSP_ITS ---
Subjective Subjective Doing well, no issues overnight. CT scan is pending for infectious disease for evaluation of aneurysms in his blood. Objective Data Objective Data Vital Signs: Vital Signs Temp Pulse Resp BP Pulse Ox 98.7 F 98 16 121/73 H 96 09/23/20 09:36 09/23/20 09:39 09/23/20 09:36 09/23/20 09:39 09/23/20 09:36 Oxygen Flow Rate (L/min) 2 Oxygen Delivery Method Room Air Weight: 175 lb 14.862 oz Body Mass Index (BMI) 22.8 Intake & Output: Intake and Output for Last 24 Hours 09/22/20 09/23/20 09/24/20 03:59 03:59 03:59 Intake Total 3287.92 / 3287.92 1963.75 / 1963.75 505.83 / 505.83 Output Total 1750 / 1750 1150 / 1150 100 / 100 Balance 1537.92 / 1537.92 813.75 / 813.75 405.83 / 405.83 Medical Nutrition Assessment Dietitian: Nutrition Therapy Diagnosis Start: 09/19/20 11:51 Freq: Status: Active Protocol: Document 09/23/20 12:04 RMA (Rec: 09/23/20 12:04 RMA [id number]) Nutrition Malnutrition Evidence of Malnutrition Exists No Intake Problem Inadequate Energy Intake Etiology related to decreased appetite with acute illness Signs/Symptoms as evidenced by pt & family report 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 Status Active Problem Clinical Problem Altered Nutrient-Related Laboratory Values Etiology related to kidney dysfunction, CKD Signs/Symptoms as evidenced by BUN 71, Creatinine 5.30. Status Inactive Problem Recommendation Dietitian Recommendations/Changes Will change diet to CHO controlled/sodium-restricted diet- will defer further renal restrictions at this time given overall compromised intake at meals. Continue 120ml glucerna shake TID with meals. Liberalize diet and add oral nutrition supplements as needed to optimize oral intake if PO/cassandra remain poor at meals. Lab / Micro Data Result Diagrams: 09/21/20 05:50 09/22/20 11:56 Labs: Laboratory Results - last 24 hr 09/22/20 16:51: POC Glucose 127 H 09/22/20 21:43: POC Glucose 167 H 09/23/20 08:05: POC Glucose 85 09/23/20 09:34: POC Glucose 161 H Micro: Microbiology 09/18/20 14:55 Blood Culture (Wb) - Anticubital Right Blood Culture - Preliminary Prevotella species Lactobacillus sp. 09/18/20 14:55 Blood Culture (Wb) - Left Hand Blood Culture - Preliminary Prevotella species Lactobacillus sp. 09/18/20 16:30 Urine, Clean Catch Urine Culture - Final Lactobacillus sp. 09/18/20 15:00 Interface Orders SARS-CoV-2 Antigen (Rapid) - Final Rhythm Strip Rhythm Strip: Sinus Tach Rate: 112 Ectopy: None Physical Exam Const alert, oriented x3 and no apparent distress General Appearance: cooperative HEENT normocephalic and moist oral mucous membranes Eyes PERRL, EOMs intact bilaterally and conjunctivae normal Neck supple and no JVD Resp normal respiratory effort, no retractions, no use of accessory muscles and clear to auscultation bilaterally Auscultation: Negative for crackles, rales, rhonchi or wheezes Cardio regular rate, regular rhythm, S1 normal heart sound, S2 normal heart sound and no murmurs GI soft to palpation, non-tender and non-distended; Negative for hepatosplenomegaly Extremity no clubbing, cyanosis or edema Skin no rashes or lesions noted Neuro no focal motor deficits and no sensory deficits noted Psych affect normal Appearance: appropriate Assessment & Plan Assessment/Plan (1) Gram-positive bacteremia: (2) Bacteremia due to Gram-negative bacteria: (3) Complicated acute cystitis: (4) Recent DEISI on CKD: (5) Sepsis: QUALIFIERS: Sepsis type: sepsis due to unspecified organism Sepsis acute organ dysfunction status: unspecified Qualified Code(s): A41.9 - Sepsis, unspecified organism PLAN: 1. Sepsis secondary to complicated acute cystitis-this appears to be secondary to Lactobacillus, -Continue antibiotic coverage per ID, patient is currently on Zosyn, patient will be evaluated tomorrow by ID 09/23/2020: CT scan is pending to evaluate for an intra-abdominal source with anaerobes in his blood 2. Acute kidney injury superimposed on chronic kidney disease stage IIIb- urology does not feel the patient's stents need to be changed at this time, nephrology is monitoring the patient's renal function, I have ordered a BMP for the patient today. Again urology feels that his stents are currently working. 09/23/2020: Appreciate nephrology's assistance 3. Hypertension/HLD -Continue with hydralazine twice daily, continue with Lipitor -Blood pressure stable 4. Diabetes mellitus-continue to monitor blood sugars 5. History of prostate cancer -Patient currently self caths at home, again, he will self catheterize for the remainder of his hospital stay. 6. History of colorectal cancer with partial colectomy -Continue daily loperamide for loose stools 7. 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
[2020-09-23 13:00] LABS: Bedside Glucose 157 mg/dL (70-110)
[2020-09-23 17:30] LABS: Bedside Glucose 125 mg/dL (70-110)
[2020-09-23] MEDS: Atorvastatin Calcium 10 MG Tablet PO (21:32)
[2020-09-23 22:40] LABS: Bedside Glucose 151 mg/dL (70-110)
[2020-09-24] VITALS (10 sets, daily range): BP systolic 138–156; BP diastolic 56–66; PULSE 79–102; RESP 16–18; TEMP 36.3–37.6; O2SAT 97–99
[2020-09-24 06:11] LABS: Bedside Glucose 108 mg/dL (70-110)
[2020-09-24 07:11] LABS: Absolute Lymphocyte Count 0.55 X10^3/uL (0.83-4.51); Absolute Neutrophil Count 8.4 X10^3/uL (2.0-7.7); Basophil# 0.05 X10^3/uL; Basophil% 0.5 % (0-1); Differential Indicated SCAN CRITERIA MET; Eosinophil# 0.06 X10^3/uL; Eosinophils% 0.6 % (0-5); Hematocrit 26.3 % (40-54); Hemoglobin 8.2 g/dL (13.0-16.5); Lymphocyte # 0.55 X10^3/ul (0.83-4.51); Lymphocyte % 5.2 % (19-41); Mean Corp Hgb Conc 31.2 g/dL (32-36); Mean Corpuscular Hgb 26.6 pg (27.0-32.0); Mean Corpuscular Volume 85.4 fL (80-94); Mean Platelet Vol. 9.5 fl (6.2-12.0); Monocyte# 1.01 X10^3/uL; Monocyte% 9.6 % (0-10); NRBC Flagged by Analyzer 0 % (0-5); Neutrophil # 8.41 X10^3/uL (2.7-7.7); Neutrophil % 80.3 % (47-70); POSITIVE DIFFERENTIAL YES; Platelet Count 161 K/mm3 (150-450); RBC Distribution Width CV 15.2 % (11.6-14.6); RBC Distribution Width SD 46.8 fl (35.1-43.9); Red Blood Count 3.08 M/mm3 (4.6-6.2); White Blood Count 10.5 K/mm3 (4.4-11.0)
[2020-09-24 07:37] LABS: Anion Gap 12 (5-15); BUN 80 mg/dL (7-18); BUN/Creat Ratio 11.2 RATIO (10-20); Chloride 107 mmol/L (98-107); Creatinine, Serum 7.15 mg/dL (0.70-1.30); EST Glomerular Filtration Rate 8 mL/min (>60); Est Glom Filt Rate - Afr Amer 10 mL/min (>60); Glucose 104 mg/dL (74-106); Potassium 4.6 mmol/L (3.5-5.1); Sodium Level 134 mmol/L (136-145)
--- NOTE | 2020-09-24 07:56 | PCM.CONS.U ---
Assessment & Plan Assessment/Plan (1) Hydronephrosis: QUALIFIERS: Hydronephrosis type: other Qualified Code(s): N13.39 - Other hydronephrosis (2) Chronic kidney disease, stage 3b: PLAN: We will taken to surgery tomorrow for cystoscopy evaluation of the distal ureters and bilateral stent changes not really sure if this is can improve his creatinine this may be chronic and this may be a result of his infection and prerenal problems and medical renal disease but will change his stents tomorrow and see if there is any improvement in his creatinine again patient knows this may not improve his creatinine and he may have to have dialysis. HPI Consult Data Date of Consult: 09/24/20 HPI Narrative HPI Narrative: ALEA SALGADO, is a 79 M who presents with sepsis and acute renal failure his creatinine was stabilizing but now suddenly his creatinine jumped up with no change not sure what exactly is going on he does have bilateral stents in place that should be working? [facility] Medical History (Updated 09/21/20 @ 15:[address] Serafin Craft, DO) Anemia Cancer Cancer of prostate Cancer of rectum Chronic kidney disease Chronic kidney disease, stage 3b Current use of insulin Diabetes Former smoker H/O fungal disease Hearing loss, left Hearing loss, right High cholesterol History of immunosuppression therapy Hypertension Kidney disease Osteoporosis Restless legs Self-catheterizes urinary bladder Tendonitis of ankle Wears hearing aid in both ears Home Medications cholecalciferol (vitamin D3) 1,000 unit PO DAILY 12/08/19 [History Last Taken 09/18/20] loperamide 2 mg PO BID 12/08/19 [History Last Taken 09/18/20] hydralazine 50 mg PO BID #60 tablet 05/07/20 [Rx Last Taken 09/18/20] tamsulosin 0.4 mg PO DAILY #30 cap 05/07/20 [Rx Last Taken 09/18/20] atorvastatin 10 mg PO QHS 07/03/20 [History Last Taken 09/17/20] insulin glargine 10 units SC DAILY 07/03/20 [History Last Taken 09/18/20] acetaminophen [Tylenol Extra Strength] 1,000 mg PO DAILY 09/18/20 [History Last Taken 09/18/20] ciprofloxacin HCl 500 mg PO BID 09/18/20 [History Last Taken 09/17/20] diphenhydramine-acetaminophen [Tylenol PM Extra Strength] 2 tab PO QHS PRN 09/18/20 [History Last Taken 09/17/20] Allergy/AdvReac Type Severity Reaction Status Date / Time No Known Allergies Allergy Verified 09/18/20 13:11 Family History (Updated 09/18/20 @ 17:32 by Nolvia Peck NP-C) Mother Diabetes Father CVA (cerebral vascular accident) Sister Heart disease Brother Heart disease Surgical History H/O partial resection of colon History of renal stent S/P TURP (status post transurethral resection of prostate) Social History (Updated 09/18/20 @ 17:32 by Nolvia Peck NP-C) Smoking Status: Former smoker alcohol intake: never substance use type: does not use Medical Records Data Medical Nutrition Assessment Dietitian: Nutrition Therapy Diagnosis Start: 09/19/20 11:51 Freq: Status: Active Protocol: Document 09/23/20 12:04 RMA (Rec: 09/23/20 12:04 RMA [id number]) Nutrition Malnutrition Evidence of Malnutrition Exists No Intake Problem Inadequate Energy Intake Etiology related to decreased appetite with acute illness Signs/Symptoms as evidenced by pt & family report 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 Status Active Problem Clinical Problem Altered Nutrient-Related Laboratory Values Etiology related to kidney dysfunction, CKD Signs/Symptoms as evidenced by BUN 71, Creatinine 5.30. Status Inactive Problem Recommendation Dietitian Recommendations/Changes Will change diet to CHO controlled/sodium-restricted diet- will defer further renal restrictions at this time given overall compromised intake at meals. Continue 120ml glucerna shake TID with meals. Liberalize diet and add oral nutrition supplements as needed to optimize oral intake if PO/cassandra remain poor at meals. Lab / Micro Data Result Diagrams: 09/24/20 06:15 09/24/20 06:15 Labs: Laboratory Results - last 24 hr 09/23/20 08:05: POC Glucose 85 09/23/20 09:34: POC Glucose 161 H 09/23/20 12:08: POC Glucose 157 H 09/23/20 17:13: POC Glucose 125 H 09/23/20 21:28: POC Glucose 151 H 09/24/20 06:03: POC Glucose 108 09/24/20 06:15: WBC 10.5, RBC 3.08 L, Hgb 8.2 L, Hct 26.3 L, MCV 85.4, MCH 26.6 L, MCHC 31.2 L, RDW Std Deviation 46.8 H, RDW Coeff of Darian 15.2 H, Plt Count 161, MPV 9.5, Immature Gran % (Auto) 3.800 H, Neut % (Auto) 80.3 H, Lymph % (Auto) 5.2 L, [place] % (Auto) 9.6, Eos % (Auto) 0.6, Baso % (Auto) 0.5, Absolute Neuts (auto) 8.4 H, Absolute Lymphs (auto) 0.55 L, Nucleated RBC % 0, Differential Comment COMMENT 09/24/20 06:15: Sodium 134 L, Potassium 4.6, Chloride 107, Carbon Dioxide 15.0 L, Anion Gap 12, BUN 80 H, Creatinine 7.15 H, Estim Creat Clear Calc 8.10, Est GFR (MDRD) Af Amer 10 L, Est GFR (MDRD) Non-Af 8 L, BUN/Creatinine Ratio 11.2, Glucose 104, Calcium 8.0 L Micro: Microbiology 09/18/20 14:55 Blood Culture (Wb) - Left Hand Blood Culture - Final Prevotella species Lactobacillus sp. 09/18/20 14:55 Blood Culture (Wb) - Anticubital Right Blood Culture - Preliminary Prevotella species Lactobacillus sp. Yeast Like Organism Rhythm Strip Rhythm Strip: Sinus Tach Rate: 112 Ectopy: None Radiology Impression Abdomen CT 09/23/20 10:09 IMPRESSION: 1. Fulvu-[id number] sized bibasilar pleural effusions which have increased. 2. Bilateral renal stents are identified in place in this patient with unilateral right renal hypoplasia and mild left renal hydronephrosis. 3. A small amount of ascites is identified. 4. Perivesical fluid is identified in the retroperitoneum which has increased and underlying bladder infection is suspected. 5. Thickening of the presacral space of uncertain etiology with abnormal sclerosis of L5 and S1. It is uncertain whether this is due to prior radiation necrosis versus metastasis. In any event is unchanged. Electronically Signed: Vladimir Shaw DO at 15:48 EDT Tel , Service support ,
[2020-09-24] MEDS: Heparin Injection (Vial) 5,000 UNIT/ML VIAL 5000 UNIT SC ×2 (09:36→22:15)
[2020-09-24] MEDS: Loperamide 2 MG Capsule PO ×2 (09:37→22:17)
[2020-09-24] MEDS: Tamsulosin HCl 0.4 MG Capsule PO (09:37)
[2020-09-24] MEDS: Acetaminophen 500 MG Tablet 1000 MG PO (09:37)
[2020-09-24] MEDS: Cholecalciferol (VIT D3) 25 MCG TABLET (1,000 UNITS) PO (09:38)
[2020-09-24] MEDS: hydrALAZINE 50 MG Tablet PO ×2 (09:38→22:17)
[2020-09-24 10:00] LABS: Bedside Glucose 168 mg/dL (70-110)
--- NOTE | 2020-09-24 10:53 | PCM.PN.HOSP ---
Subjective Subjective Feels okay today, no issues overnight. His creatinine did go up this morning and it appears that urology would like to place bigger stents tomorrow Objective Data Objective Data Vital Signs: Vital Signs Temp Pulse Resp BP Pulse Ox 98.7 F 102 H 16 150/65 H 97 09/24/20 09:30 09/24/20 09:38 09/24/20 09:30 09/24/20 09:30 09/24/20 09:30 Oxygen Flow Rate (L/min) 2 Oxygen Delivery Method Room Air Weight: 173 lb 4.533 oz Body Mass Index (BMI) 22.8 Intake & Output: Intake and Output for Last 24 Hours 09/23/20 09/24/20 09/25/20 03:59 03:59 03:59 Intake Total 1963.75 / 1963.75 1314.58 / 1314.58 220 / 220 Output Total 1150 / 1150 250 / 250 450 / 450 Balance 813.75 / 813.75 1064.58 / 1064.58 -230 / -230 Medical Nutrition Assessment Dietitian: Nutrition Therapy Diagnosis Start: 09/19/20 11:51 Freq: Status: Active Protocol: Document 09/23/20 12:04 RMA (Rec: 09/23/20 12:04 RMA [id number]) Nutrition Malnutrition Evidence of Malnutrition Exists No Intake Problem Inadequate Energy Intake Etiology related to decreased appetite with acute illness Signs/Symptoms as evidenced by pt & family report 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 Status Active Problem Clinical Problem Altered Nutrient-Related Laboratory Values Etiology related to kidney dysfunction, CKD Signs/Symptoms as evidenced by BUN 71, Creatinine 5.30. Status Inactive Problem Recommendation Dietitian Recommendations/Changes Will change diet to CHO controlled/sodium-restricted diet- will defer further renal restrictions at this time given overall compromised intake at meals. Continue 120ml glucerna shake TID with meals. Liberalize diet and add oral nutrition supplements as needed to optimize oral intake if PO/cassandra remain poor at meals. Lab / Micro Data Result Diagrams: 09/24/20 06:15 09/24/20 06:15 Labs: Laboratory Results - last 24 hr 09/23/20 12:08: POC Glucose 157 H 09/23/20 17:13: POC Glucose 125 H 09/23/20 21:28: POC Glucose 151 H 09/24/20 06:03: POC Glucose 108 09/24/20 06:15: WBC 10.5, RBC 3.08 L, Hgb 8.2 L, Hct 26.3 L, MCV 85.4, MCH 26.6 L, MCHC 31.2 L, RDW Std Deviation 46.8 H, RDW Coeff of Darian 15.2 H, Plt Count 161, MPV 9.5, Immature Gran % (Auto) 3.800 H, Neut % (Auto) 80.3 H, Lymph % (Auto) 5.2 L, [place] % (Auto) 9.6, Eos % (Auto) 0.6, Baso % (Auto) 0.5, Absolute Neuts (auto) 8.4 H, Absolute Lymphs (auto) 0.55 L, Nucleated RBC % 0, Differential Comment COMMENT 09/24/20 06:15: Sodium 134 L, Potassium 4.6, Chloride 107, Carbon Dioxide 15.0 L, Anion Gap 12, BUN 80 H, Creatinine 7.15 H, Estim Creat Clear Calc 8.10, Est GFR (MDRD) Af Amer 10 L, Est GFR (MDRD) Non-Af 8 L, BUN/Creatinine Ratio 11.2, Glucose 104, Calcium 8.0 L 09/24/20 09:51: POC Glucose 168 H Micro: Microbiology 09/18/20 14:55 Blood Culture (Wb) - Left Hand Blood Culture - Final Prevotella species Lactobacillus sp. 09/18/20 14:55 Blood Culture (Wb) - Anticubital Right Blood Culture - Preliminary Prevotella species Lactobacillus sp. Yeast Like Organism 09/18/20 16:30 Urine, Clean Catch Urine Culture - Final Lactobacillus sp. 09/18/20 15:00 Interface Orders SARS-CoV-2 Antigen (Rapid) - Final Radiography Diagnostic Testing: Radiology Impression Abdomen CT 09/23/20 10:09 IMPRESSION: 1. Yhvow-fr-ykseyokq sized bibasilar pleural effusions which have increased. 2. Bilateral renal stents are identified in place in this patient with unilateral right renal hypoplasia and mild left renal hydronephrosis. 3. A small amount of ascites is identified. 4. Perivesical fluid is identified in the retroperitoneum which has increased and underlying bladder infection is suspected. 5. Thickening of the presacral space of uncertain etiology with abnormal sclerosis of L5 and S1. It is uncertain whether this is due to prior radiation necrosis versus metastasis. In any event is unchanged. Electronically Signed: Vladimir Shaw DO at 15:48 EDT Tel , Service support , Rhythm Strip Rhythm Strip: Sinus Tach Rate: 112 Ectopy: None Physical Exam Const alert, oriented x3 and no apparent distress General Appearance: cooperative Orientation / Consciousness: awake, oriented to person, oriented to place and oriented to time HEENT normocephalic and moist oral mucous membranes Eyes PERRL, EOMs intact bilaterally and conjunctivae normal Neck supple and no JVD Resp normal respiratory effort, no retractions, no use of accessory muscles and clear to auscultation bilaterally Auscultation: Negative for crackles, rales, rhonchi or wheezes Cardio regular rate, regular rhythm, S1 normal heart sound, S2 normal heart sound and no murmurs Rate: tachycardic GI soft to palpation, non-tender and non-distended; Negative for hepatosplenomegaly Extremity no clubbing, cyanosis or edema General Extremity: no tenderness to palpation of joints or extremities Skin no rashes or lesions noted General Skin Exam: no breakdown and turgor normal Lesions: no lesions Rashes: no rashes Neuro no focal motor deficits and no sensory deficits noted Sensorium / Orientation: awake, alert and oriented to person Speech: speech normal Motor Exam: general weakness Psych affect normal Appearance: appropriate Assessment & Plan Assessment/Plan (1) Gram-positive bacteremia: (2) Bacteremia due to Gram-negative bacteria: (3) Complicated acute cystitis: (4) Recent DEISI on CKD: (5) Sepsis: QUALIFIERS: Sepsis type: sepsis due to unspecified organism Sepsis acute organ dysfunction status: unspecified Qualified Code(s): A41.9 - Sepsis, unspecified organism PLAN: 1. Sepsis secondary to complicated acute cystitis-this appears to be secondary to Lactobacillus, -Continue antibiotic coverage per ID, patient is currently on Zosyn, patient will be evaluated tomorrow by ID 09/23/2020: CT scan is pending to evaluate for an intra-abdominal source with anaerobes in his blood 09/24/2020: CT is unremarkable, it shows possible cystitis which we know he has and is being treated for 2. Acute kidney injury superimposed on chronic kidney disease stage IIIb-urology does not feel the patient's stents need to be changed at this time, nephrology is monitoring the patient's renal function, I have ordered a BMP for the patient today. Again urology feels that his stents are currently working. 09/23/2020: Appreciate nephrology's assistance 09/24/2020: Urology will take for cystoscopy tomorrow to replace his stents and provide larger stents, will await nephrology evaluation for today 3. Hypertension/HLD -Continue with hydralazine twice daily, continue with Lipitor -Blood pressure stable 4. Diabetes mellitus-continue to monitor blood sugars 5. History of prostate cancer -Patient currently self caths at home, again, he will self catheterize for the remainder of his hospital stay. 6. History of colorectal cancer with partial colectomy -Continue daily loperamide for loose stools 7. 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
[2020-09-24] MEDS: Insulin Lispro 100 UNIT/ML INSULN.PEN SC ×3 (11:40→22:15)
[2020-09-24 11:45] LABS: Bedside Glucose 242 mg/dL (70-110)
--- NOTE | 2020-09-24 12:41 | PN.RENAL_ITS ---
Subjective Subjective spiked fevers. Objective Data Objective Data Vital Signs: Vital Signs Temp Pulse Resp BP Pulse Ox 98.7 F 102 H 16 150/65 H 97 09/24/20 09:30 09/24/20 09:38 09/24/20 09:30 09/24/20 09:30 09/24/20 09:30 Oxygen Flow Rate (L/min) 2 Oxygen Delivery Method Room Air Weight: 78.6 kg Body Mass Index (BMI) 22.8 Intake & Output: Intake and Output for Last 24 Hours 09/22/20 09/23/20 09/24/20 23:59 23:59 23:59 Intake Total 3122.50 / 3122.50 1320.00 / 1320.00 264.58 / 264.58 Output Total 1950 / 1950 250 / 250 450 / 450 Balance 1172.50 / 1172.50 1070.00 / 1070.00 -185.42 / -185.42 Medical Nutrition Assessment Dietitian: Nutrition Therapy Diagnosis Start: 09/19/20 11:51 Freq: Status: Active Protocol: Document 09/23/20 12:04 RMA (Rec: 09/23/20 12:04 RMA [id number]) Nutrition Malnutrition Evidence of Malnutrition Exists No Intake Problem Inadequate Energy Intake Etiology related to decreased appetite with acute illness Signs/Symptoms as evidenced by pt & family report 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 Status Active Problem Clinical Problem Altered Nutrient-Related Laboratory Values Etiology related to kidney dysfunction, CKD Signs/Symptoms as evidenced by BUN 71, Creatinine 5.30. Status Inactive Problem Recommendation Dietitian Recommendations/Changes Will change diet to CHO controlled/sodium-restricted diet- will defer further renal restrictions at this time given overall compromised intake at meals. Continue 120ml glucerna shake TID with meals. Liberalize diet and add oral nutrition supplements as needed to optimize oral intake if PO/cassandra remain poor at meals. Lab / Micro Data Result Diagrams: 09/24/20 06:15 09/24/20 06:15 Labs: Laboratory Results - last 24 hr 09/23/20 12:08: POC Glucose 157 H 09/23/20 17:13: POC Glucose 125 H 09/23/20 21:28: POC Glucose 151 H 09/24/20 06:03: POC Glucose 108 09/24/20 06:15: WBC 10.5, RBC 3.08 L, Hgb 8.2 L, Hct 26.3 L, MCV 85.4, MCH 26.6 L, MCHC 31.2 L, RDW Std Deviation 46.8 H, RDW Coeff of Darian 15.2 H, Plt Count 161, MPV 9.5, Immature Gran % (Auto) 3.800 H, Neut % (Auto) 80.3 H, Lymph % (Auto) 5.2 L, [place] % (Auto) 9.6, Eos % (Auto) 0.6, Baso % (Auto) 0.5, Absolute Neuts (auto) 8.4 H, Absolute Lymphs (auto) 0.55 L, Nucleated RBC % 0, Dif ferential Comment COMMENT 09/24/20 06:15: Sodium 134 L, Potassium 4.6, Chloride 107, Carbon Dioxide 15.0 L , Anion Gap 12, BUN 80 H, Creatinine 7.15 H, Estim Creat Clear Calc 8.10, Est GFR (MDRD) Af Amer 10 L, Est GFR (MDRD) Non-Af 8 L, BUN/Creatinine Ratio 11.2, Glucose 104, Calcium 8.0 L 09/24/20 09:51: POC Glucose 168 H 09/24/20 11:37: POC Glucose 242 H Micro: Microbiology 09/18/20 14:55 Blood Culture (Wb) - Left Hand Blood Culture - Final Prevotella species Lactobacillus sp. 09/18/20 14:55 Blood Culture (Wb) - Anticubital Right Blood Culture - Preliminary Prevotella species Lactobacillus sp. Yeast Like Organism 09/18/20 16:30 Urine, Clean Catch Urine Culture - Final Lactobacillus sp. 09/18/20 15:00 Interface Orders SARS-CoV-2 Antigen (Rapid) - Final Radiography Diagnostic Testing: Radiology Impression Abdomen CT 09/23/20 10:09 IMPRESSION: 1. Pfepg-zy-zupdtigp sized bibasilar pleural effusions which have increased. 2. Bilateral renal stents are identified in place in this patient with unilateral right renal hypoplasia and mild left renal hydronephrosis. 3. A small amount of ascites is identified. 4. Perivesical fluid is identified in the retroperitoneum which has increased and underlying bladder infection is suspected. 5. Thickening of the presacral space of uncertain etiology with abnormal sclerosis of L5 and S1. It is uncertain whether this is due to prior radiation necrosis versus metastasis. In any event is unchanged. Electronically Signed: Vladimir Shaw DO at 15:48 EDT Tel , Service support , Rhythm Strip Rhythm Strip: Sinus Tach Rate: 112 Ectopy: None Physical Exam Narrative General: Alert and oriented x3, no apparent distress HEENT: Normocephalic, atraumatic. Mucous membrane moist. Heart: Normal S1, S2. No rubs or murmurs. Lungs: Clear to auscultation anteriorly. Abdomen: Normal bowel sound, soft, nontender. No guarding or rebound. Extremity: No clubbing or cyanosis. 2+ edema in the lower extremity. Assessment & Plan Assessment/Plan (1) DEISI (acute kidney injury): PLAN: Likely ATN in the setting of sepsis. cr worse. still spiking fevers. dw patient and about options. dw Dr Salas. Plan is to change out stents tomorrow. last alternative if stents dont work will be nephrostomy. otherwise he will have to start dialysis. will assess after stent change (2) Chronic kidney disease, stage 3b: PLAN: The patient has a baseline serum creatinine of around 2 to 2.5 mg/dL. He is in stage IIIb CKD at baseline. The patient has chronic urinary retention and requires CIC 3 times a day at home. 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 (3) Hypertension: PLAN: BP is Ok. (4) Severe sepsis: PLAN: The patient has Lactobacillus gasseri in both the urine and blood. He is on Zosyn.
[2020-09-24 17:31] LABS: Bedside Glucose 165 mg/dL (70-110)
[2020-09-24] MEDS: Atorvastatin Calcium 10 MG Tablet PO (22:17)
[2020-09-24 23:51] LABS: Bedside Glucose 201 mg/dL (70-110)
[2020-09-25] VITALS (16 sets, daily range): BP systolic 134–154; BP diastolic 57–77; PULSE 85–133; RESP 16–20; TEMP 36.3–37.1; O2SAT 92–99
[2020-09-25 06:15] LABS: International Normalized Ratio 1.2; Prothrombin Time (Protime)PT. 14.8 SECONDS (11.7-14.9)
[2020-09-25 06:16] LABS: Differential Indicated MANUAL DIFF; Hematocrit 25.6 % (40-54); Mean Corp Hgb Conc 31.3 g/dL (32-36); Mean Corpuscular Hgb 26.8 pg (27.0-32.0); Mean Corpuscular Volume 85.9 fL (80-94); Mean Platelet Vol. 9.1 fl (6.2-12.0); POSITIVE COUNT YES; POSITIVE MORPHOLOGY YES; Partial Thromboplast Time 40.2 Seconds (24.1-36.2); Platelet Count 201 K/mm3 (150-450); RBC Distribution Width CV 15.3 % (11.6-14.6); RBC Distribution Width SD 47.8 fl (35.1-43.9); Red Blood Count 2.98 M/mm3 (4.6-6.2); White Blood Count 9.1 K/mm3 (4.4-11.0)
[2020-09-25 06:31] LABS: Eosinophil 2 % (0-5); Lymphocyte 14 % (19-41); Monocyte 6 % (0-10); Myelocyte 3 % (0-0); Neutrophil-Segmented 75 % (47-70)
[2020-09-25 06:33] LABS: Absolute Neutrophil Count 6.8 X10^3/uL (2.0-7.7)
[2020-09-25 06:34] LABS: Absolute Lymphocyte Count 1.27 X10^3/uL (0.83-4.51); Anion Gap 13 (5-15); BUN 79 mg/dL (7-18); BUN/Creat Ratio 11.6 RATIO (10-20); Chloride 109 mmol/L (98-107); Creatinine, Serum 6.81 mg/dL (0.70-1.30); EST Glomerular Filtration Rate 8 mL/min (>60); Est Glom Filt Rate - Afr Amer 10 mL/min (>60); Estimated Creatinine Clearance 8.51 ml/min; Glucose 145 mg/dL (74-106); Platelet Estimate ADEQUATE (ADEQ); Potassium 4.6 mmol/L (3.5-5.1); Red Cell Morphology NORM C+C NORMAL (NORM C&C); Sodium Level 138 mmol/L (136-145)
[2020-09-25 06:56] LABS: Bedside Glucose 135 mg/dL (70-110)
[2020-09-25 08:12] LABS: Hemoglobin A1c 7.5 % (3.8-5.6)
--- NOTE | 2020-09-25 09:30 | PN.HOSP_ITS ---
Subjective Subjective Doing well, no issues overnight. Creatinine has improved slightly but his hemoglobin is down to 8.0. Plan will be for cystoscopy and increased stent size placement today Objective Data Objective Data Vital Signs: Vital Signs Temp Pulse Resp BP Pulse Ox 97.7 F L 87 18 154/71 H 96 09/25/20 05:37 09/25/20 07:24 09/25/20 05:37 09/25/20 05:37 09/25/20 05:37 Oxygen Flow Rate (L/min) 2 Oxygen Delivery Method Room Air Weight: 170 lb 6.677 oz Body Mass Index (BMI) 22.8 Intake & Output: Intake and Output for Last 24 Hours 09/24/20 09/25/20 09/26/20 03:59 03:59 03:59 Intake Total 1314.58 / 1314.58 1440 / 1440 Output Total 250 / 250 2600 / 2600 Balance 1064.58 / 1064.58 -1160 / -1160 Medical Nutrition Assessment Dietitian: Nutrition Therapy Diagnosis Start: 09/19/20 11:51 Freq: Status: Active Protocol: Document 09/23/20 12:04 RMA (Rec: 09/23/20 12:04 RMA [id number]) Nutrition Malnutrition Evidence of Malnutrition Exists No Intake Problem Inadequate Energy Intake Etiology related to decreased appetite with acute illness Signs/Symptoms as evidenced by pt & family report 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 Status Active Problem Clinical Problem Altered Nutrient-Related Laboratory Values Etiology related to kidney dysfunction, CKD Signs/Symptoms as evidenced by BUN 71, Creatinine 5.30. Status Inactive Problem Recommendation Dietitian Recommendations/Changes Will change diet to CHO controlled/sodium-restricted diet- will defer further renal restrictions at this time given overall compromised intake at meals. Continue 120ml glucerna shake TID with meals. Liberalize diet and add oral nutrition supplements as needed to optimize oral intake if PO/cassandra remain poor at meals. Lab / Micro Data Result Diagrams: 09/25/20 05:44 09/25/20 05:44 Labs: Laboratory Results - last 24 hr 09/24/20 09:51: POC Glucose 168 H 09/24/20 11:37: POC Glucose 242 H 09/24/20 17:21: POC Glucose 165 H 09/24/20 22:14: POC Glucose 201 H 09/25/20 05:44: WBC 9.1, RBC 2.98 L, Hgb 8.0 L, Hct 25.6 L, MCV 85.9, MCH 26.8 L , MCHC 31.3 L, RDW Std Deviation 47.8 H, RDW Coeff of Darian 15.3 H, Plt Count 201, MPV 9.1, Neut % (Auto) Not Reportable, Absolute Neuts (auto) 6.8, Absolute Lymphs (auto) 1.27, Neutrophils % (Manual) 75 H, Lymphocytes % (Manual) 14 L, Monocytes % (Manual) 6, Eosinophils % (Manual) 2, Myelocytes % 3 H, Diff Path Review June, Platelet Estimate ADEQUATE, RBC Morphology NORM C+C 09/25/20 05:44: Sodium 138, Potassium 4.6, Chloride 109 H, Carbon Dioxide 16.0 L , Anion Gap 13, BUN 79 H, Creatinine 6.81 H, Estim Creat Clear Calc 8.51, Est GFR (MDRD) Af Amer 10 L, Est GFR (MDRD) Non-Af 8 L, BUN/Creatinine Ratio 11.6, Glucose 145 H, Calcium 8.0 L 09/25/20 05:44: PT 14.8, INR 1.2, APTT 40.2 H 09/25/20 05:44: Hemoglobin A1c 7.5 H 09/25/20 06:54: POC Glucose 135 H Micro: Microbiology 09/18/20 14:55 Blood Culture (Wb) - Left Hand Blood Culture - Final Prevotella species Lactobacillus sp. 09/18/20 14:55 Blood Culture (Wb) - Anticubital Right Blood Culture - Preliminary Prevotella species Lactobacillus sp. Yeast Like Organism 09/18/20 16:30 Urine, Clean Catch Urine Culture - Final Lactobacillus sp. 09/18/20 15:00 Interface Orders SARS-CoV-2 Antigen (Rapid) - Final Rhythm Strip Rhythm Strip: Sinus Tach Rate: 112 Ectopy: None Physical Exam Narrative Const alert, oriented x3 and no apparent distress General Appearance: cooperative Orientation / Consciousness: awake, oriented to person, oriented to place and oriented to time HEENT normocephalic and moist oral mucous membranes Eyes PERRL, EOMs intact bilaterally and conjunctivae normal Neck supple and no JVD Resp normal respiratory effort, no retractions, no use of accessory muscles and clear to auscultation bilaterally Auscultation: Negative for crackles, rales, rhonchi or wheezes Cardio regular rate, regular rhythm, S1 normal heart sound, S2 normal heart sound and no murmurs Rate: tachycardic GI soft to palpation, non-tender and non-distended; Negative for hepatosplenomegaly Extremity no clubbing, cyanosis or edema General Extremity: no tenderness to palpation of joints or extremities Skin no rashes or lesions noted General Skin Exam: no breakdown and turgor normal Lesions: no lesions Rashes: no rashes Neuro no focal motor deficits and no sensory deficits noted Sensorium / Orientation: awake, alert and oriented to person Speech: speech normal Motor Exam: general weakness Psych affect normal Appearance: appropriate Assessment & Plan Assessment/Plan (1) Gram-positive bacteremia: (2) Bacteremia due to Gram-negative bacteria: (3) Complicated acute cystitis: (4) Recent DEISI on CKD: (5) Sepsis: QUALIFIERS: Sepsis type: sepsis due to unspecified organism Sepsis acute organ dysfunction status: unspecified Qualified Code(s): A41.9 - Sepsis, unspecified organism PLAN: 1. Sepsis secondary to complicated acute cystitis-this appears to be secondary to Lactobacillus, -Continue antibiotic coverage per ID, patient is currently on Zosyn, patient will be evaluated tomorrow by ID 09/23/2020: CT scan is pending to evaluate for an intra-abdominal source with anaerobes in his blood 09/24/2020: CT is unremarkable, it shows possible cystitis which we know he has and is being treated for 09/25/2020: Continue with antibiotics, plan for cystoscopy today and exchange of his stents 2. Acute kidney injury superimposed on chronic kidney disease stage IIIb- urology does not feel the patient's stents need to be changed at this time, nephrology is monitoring the patient's renal function, I have ordered a BMP for the patient today. Again urology feels that his stents are currently working. 09/23/2020: Appreciate nephrology's assistance 09/24/2020: Urology will take for cystoscopy tomorrow to replace his stents and provide larger stents, will await nephrology evaluation for today 09/25/2020: Creatinine is slightly improved today we will continue to monitor, appreciate nephrology's assistance 3. Hypertension/HLD -Continue with hydralazine twice daily, continue with Lipitor -Blood pressure stable 4. Diabetes mellitus-continue to monitor blood sugars 5. History of prostate cancer -Patient currently self caths at home, again, he will self catheterize for the remainder of his hospital stay. 6. History of colorectal cancer with partial colectomy -Continue daily loperamide for loose stools 7. 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
[2020-09-25] MEDS: Loperamide 2 MG Capsule PO ×2 (10:02→21:53)
[2020-09-25] MEDS: hydrALAZINE 50 MG Tablet PO ×2 (10:02→21:53)
[2020-09-25] MEDS: Cholecalciferol (VIT D3) 25 MCG TABLET (1,000 UNITS) PO (10:02)
[2020-09-25] MEDS: Acetaminophen 500 MG Tablet 1000 MG PO (10:02)
[2020-09-25] MEDS: Tamsulosin HCl 0.4 MG Capsule PO (10:03)
[2020-09-25 10:45] LABS: Bedside Glucose 144 mg/dL (70-110)
[2020-09-25 12:39] LABS: Pathologist Review Reviewed
--- NOTE | 2020-09-25 14:39 | PN.RENAL_ITS ---
Subjective Subjective no new complaints Objective Data Objective Data Vital Signs: Vital Signs Temp Pulse Resp BP Pulse Ox 98.0 F 91 16 148/61 H 95 09/25/20 13:34 09/25/20 13:34 09/25/20 13:34 09/25/20 13:34 09/25/20 13:34 Oxygen Flow Rate (L/min) 2 Oxygen Delivery Method Room Air Weight: 77.3 kg Body Mass Index (BMI) 22.8 Intake & Output: Intake and Output for Last 24 Hours 09/23/20 09/24/20 09/25/20 23:59 23:59 23:59 Intake Total 1320.00 / 1320.00 1434.58 / 1434.58 530 / 530 Output Total 250 / 250 2600 / 2600 1100 / 1100 Balance 1070.00 / 1070.00 -1165.42 / -1165.42 -570 / -570 Medical Nutrition Assessment Dietitian: Nutrition Therapy Diagnosis Start: 09/19/20 11:51 Freq: Status: Active Protocol: Document 09/25/20 10:40 RMA (Rec: 09/25/20 10:41 RMA [id number]) Nutrition Malnutrition Evidence of Malnutrition Exists No Intake Problem Inadequate Energy Intake Etiology related to decreased appetite with acute illness Signs/Symptoms as evidenced by pt & family report 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 Continue 120ml glucerna shake TID with meals. Liberalize diet and add oral nutrition supplements as needed to optimize oral intake if PO/cassandra decline at meals. Lab / Micro Data Result Diagrams: 09/25/20 05:44 09/25/20 05:44 Labs: Laboratory Results - last 24 hr 09/24/20 17:21: POC Glucose 165 H 09/24/20 22:14: POC Glucose 201 H 09/25/20 05:44: WBC 9.1, RBC 2.98 L, Hgb 8.0 L, Hct 25.6 L, MCV 85.9, MCH 26.8 L , MCHC 31.3 L, RDW Std Deviation 47.8 H, RDW Coeff of Darian 15.3 H, Plt Count 201, MPV 9.1, Neut % (Auto) Not Reportable, Absolute Neuts (auto) 6.8, Absolute Lymphs (auto) 1.27, Neutrophils % (Manual) 75 H, Lymphocytes % (Manual) 14 L, Monocytes % (Manual) 6, Eosinophils % (Manual) 2, Myelocytes % 3 H, Diff Path Review Reviewed, Platelet Estimate ADEQUATE, RBC Morphology NORM C+C 09/25/20 05:44: Sodium 138, Potassium 4.6, Chloride 109 H, Carbon Dioxide 16.0 L , Anion Gap 13, BUN 79 H, Creatinine 6.81 H, Estim Creat Clear Calc 8.51, Est GFR (MDRD) Af Amer 10 L, Est GFR (MDRD) Non-Af 8 L, BUN/Creatinine Ratio 11.6, Glucose 145 H, Calcium 8.0 L 09/25/20 05:44: PT 14.8, INR 1.2, APTT 40.2 H 09/25/20 05:44: Hemoglobin A1c 7.5 H 09/25/20 06:54: POC Glucose 135 H 09/25/20 10:14: POC Glucose 144 H Micro: Microbiology 09/18/20 14:55 Blood Culture (Wb) - Left Hand Blood Culture - Final Prevotella species Lactobacillus sp. 09/18/20 14:55 Blood Culture (Wb) - Anticubital Right Blood Culture - Preliminary Prevotella species Lactobacillus sp. Yeast Like Organism 09/18/20 16:30 Urine, Clean Catch Urine Culture - Final Lactobacillus sp. 09/18/20 15:00 Interface Orders SARS-CoV-2 Antigen (Rapid) - Final Rhythm Strip Rhythm Strip: Sinus Tach Rate: 112 Ectopy: None Physical Exam Narrative General: Alert and oriented x3, no apparent distress HEENT: Normocephalic, atraumatic. Mucous membrane moist. Heart: Normal S1, S2. No rubs or murmurs. Lungs: Clear to auscultation anteriorly. Abdomen: Normal bowel sound, soft, nontender. No guarding or rebound. Extremity: No clubbing or cyanosis. 2+ edema in the lower extremity. Assessment & Plan Assessment/Plan (1) DEISI (acute kidney injury): PLAN: Likely ATN in the setting of sepsis. creatinine is slightly better t adelso. For stent exchange today. Will follow creatinine tomorrow. Advised him to do self caths 4 times a day instead of 3 times a day. (2) Chronic kidney disease, stage 3b: PLAN: The patient has a baseline serum creatinine of around 2 to 2.5 mg/dL. He is in stage IIIb CKD at baseline. The patient has chronic urinary retention and requires CIC 3 times a day at home. 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 (3) Hypertension: PLAN: BP is Ok. (4) Severe sepsis: PLAN: The patient has Lactobacillus gasseri in both the urine and blood. He is on Zosyn.
--- NOTE | 2020-09-25 15:32 | OP.PCM_ITS ---
Report of Operation Date of Procedure: 09/25/20 Pre-Operative Diagnosis: Renal failure, bilateral stents urethral stricture sev ere Post-Operative Diagnosis: Same Surgery/Procedure Performed:: Cystoscopy dilation of prostatic urethral stricture and Akers placement, left stent change left retrograde pyelogram, right stent change and right retrograde pyelogram. Description of Surgical Findings:: Patient was taken back to the operating room at the smooth induction of general anesthesia he was placed in dorsal lithotomy position. The penis and testicles were prepped and draped in usual sterile fashion. Went into the bladder with a 21 [place] rigid cystourethroscope once inside the bladder along the entire length of the urethra the urethra was okay but when I got to the prostatic urethra the scar down horribly scarred down the prostatic urethra very hard to get through, I did use the dilators to get the scope through after dilating from 12 [place] up to 18 [place] to get the scope through and once in the bladder I grabbed the left stent pulled out the meatus put a wire through the stent performed a retrograde pyelogram to delineate contrast in the kidney there was minimal hydronephrosis on the the side and then over the left wire I placed a 7 [place] by 26 cm stent in good position, then went into the bladder grabbed the other stent on the right side pulled out the meatus put a wire up on the right side and then put a 6 [place] by 26 cm stent on the right side. Then we placed a ak chin tip catheter in the bladder for maximum decompression of his kidneys the patient anesthetic was reversed he was taken back to the PACU in good condition hopefully this will improve his kidney function but of course we talked about the possibility of failure. Surgeon: riley Drains: stent bilateral, and akers Admit VTE Documentation VTE Present on Admission: No VTE Mechan Device Prophylaxis: SCD's
[2020-09-25 16:20] LABS: Bedside Glucose 121 mg/dL (70-110)
[2020-09-25] MEDS: Atorvastatin Calcium 10 MG Tablet PO (21:53)
[2020-09-25] MEDS: Insulin Lispro 100 UNIT/ML INSULN.PEN SC (21:53)
[2020-09-25] MEDS: Heparin Injection (Vial) 5,000 UNIT/ML VIAL 5000 UNIT SC (21:55)
[2020-09-25 22:16] LABS: Bedside Glucose 183 mg/dL (70-110)
[2020-09-26] VITALS (10 sets, daily range): BP systolic 142–156; BP diastolic 62–68; PULSE 77–99; RESP 15–18; TEMP 36.1–36.6; O2SAT 95–98
[2020-09-26 06:41] LABS: Bedside Glucose 118 mg/dL (70-110)
[2020-09-26 06:41] LABS: Absolute Lymphocyte Count 0.51 X10^3/uL (0.83-4.51); Absolute Neutrophil Count 8.1 X10^3/uL (2.0-7.7); Basophil# 0.03 X10^3/uL; Basophil% 0.3 % (0-1); Differential Indicated SCAN CRITERIA MET; Eosinophil# 0.11 X10^3/uL; Eosinophils% 1.1 % (0-5); Hematocrit 24.8 % (40-54); Hemoglobin 7.8 g/dL (13.0-16.5); Lymphocyte # 0.51 X10^3/ul (0.83-4.51); Lymphocyte % 5.3 % (19-41); Mean Corp Hgb Conc 31.5 g/dL (32-36); Mean Corpuscular Hgb 27.1 pg (27.0-32.0); Mean Corpuscular Volume 86.1 fL (80-94); Mean Platelet Vol. 9.2 fl (6.2-12.0); Monocyte# 0.68 X10^3/uL; NRBC Flagged by Analyzer 0 % (0-5); Neutrophil # 8.09 X10^3/uL (2.7-7.7); Neutrophil % 83.5 % (47-70); POSITIVE DIFFERENTIAL YES; Platelet Count 219 K/mm3 (150-450); RBC Distribution Width CV 15.4 % (11.6-14.6); Red Blood Count 2.88 M/mm3 (4.6-6.2); White Blood Count 9.7 K/mm3 (4.4-11.0)
[2020-09-26 07:11] LABS: Anion Gap 13 (5-15); BUN 74 mg/dL (7-18); BUN/Creat Ratio 11.3 RATIO (10-20); Calcium,Total 8.1 mg/dL (8.5-10.1); Chloride 109 mmol/L (98-107); Creatinine, Serum 6.52 mg/dL (0.70-1.30); EST Glomerular Filtration Rate 9 mL/min (>60); Est Glom Filt Rate - Afr Amer 11 mL/min (>60); Estimated Creatinine Clearance 8.89 ml/min; Glucose 119 mg/dL (74-106); Potassium 4.7 mmol/L (3.5-5.1); Sodium Level 140 mmol/L (136-145)
--- NOTE | 2020-09-26 07:36 | PCM.CONS.U ---
Assessment & Plan Assessment/Plan (1) Recent DEISI on CKD: PLAN: as Creatinine improve, hopefully hold of dialysis for now home with akers on dischage. HPI Consult Data Date of Consult: 09/26/20 HPI Narrative HPI Narrative: ALEA SALGADO, is a 79 M who presents with ARF s/p bilateral stent change yesturday and akers placement cre better. PFSH Medical History (Updated 09/24/20 @ 22:11 by Cynthia Ugalde) Anemia Cancer Cancer of prostate Cancer of rectum Chronic kidney disease Chronic kidney disease, stage 3b Current use of insulin Depression Diabetes Former smoker H/O fungal disease Hearing loss, left Hearing loss, right High cholesterol History of immunosuppression therapy Hypertension Kidney disease Osteoporosis Restless legs Self-catheterizes urinary bladder Tendonitis of ankle Wears hearing aid in both ears Home Medications cholecalciferol (vitamin D3) 1,000 unit PO DAILY 12/08/19 [History Last Taken 09/18/20] loperamide 2 mg PO BID 12/08/19 [History Last Taken 09/18/20] hydralazine 50 mg PO BID #60 tablet 05/07/20 [Rx Last Taken 09/18/20] tamsulosin 0.4 mg PO DAILY #30 cap 05/07/20 [Rx Last Taken 09/18/20] atorvastatin 10 mg PO QHS 07/03/20 [History Last Taken 09/17/20] insulin glargine 10 units SC DAILY 07/03/20 [History Last Taken 09/18/20] acetaminophen [Tylenol Extra Strength] 1,000 mg PO DAILY 09/18/20 [History Last Taken 09/18/20] ciprofloxacin HCl 500 mg PO BID 09/18/20 [History Last Taken 09/17/20] diphenhydramine-acetaminophen [Tylenol PM Extra Strength] 2 tab PO QHS PRN 09/18/20 [History Last Taken 09/17/20] Allergy/AdvReac Type Severity Reaction Status Date / Time No Known Allergies Allergy Verified 09/18/20 13:11 Family History (Updated 09/18/20 @ 17:32 by Nolvia Peck, REX-C) Mother Diabetes Father CVA (cerebral vascular accident) Sister Heart disease Brother Heart disease Surgical History H/O partial resection of colon History of renal stent S/P TURP (status post transurethral resection of prostate) Social History (Updated 09/18/20 @ 17:32 by Nolvia Peck NP-C) Smoking Status: Former smoker alcohol intake: never substance use type: does not use Medical Records Data Medical Nutrition Assessment Dietitian: Nutrition Therapy Diagnosis Start: 09/19/20 11:51 Freq: Status: Active Protocol: Document 09/25/20 10:40 RMA (Rec: 09/25/20 10:41 RMA [id number]) Nutrition Malnutrition Evidence of Malnutrition Exists No Intake Problem Inadequate Energy Intake Etiology related to decreased appetite with acute illness Signs/Symptoms as evidenced by pt & family report 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 Continue 120ml glucerna shake TID with meals. Liberalize diet and add oral nutrition supplements as needed to optimize oral intake if PO/cassandra decline at meals. Lab / Micro Data Result Diagrams: 09/26/20 06:00 09/26/20 06:00 Labs: Laboratory Results - last 24 hr 09/25/20 05:44: Diff Path Review Reviewed 09/25/20 05:44: Hemoglobin A1c 7.5 H 09/25/20 10:14: POC Glucose 144 H 09/25/20 16:11: POC Glucose 121 H 09/25/20 21:52: POC Glucose 183 H 09/26/20 06:00: WBC 9.7, RBC 2.88 L, Hgb 7.8 L, Hct 24.8 L, MCV 86.1, MCH 27.1, MCHC 31.5 L, RDW Std Deviation 49.0 H, RDW Coeff of Darian 15.4 H, Plt Count 219, MPV 9.2, Immature Gran % (Auto) 2.800 H, Neut % (Auto) 83.5 H, Lymph % (Auto) 5.3 L, [place] % (Auto) 7.0, Eos % (Auto) 1.1, Baso % (Auto) 0.3, Absolute Neuts (auto) 8.1 H, Absolute Lymphs (auto) 0.51 L, Nucleated RBC % 0 09/26/20 06:00: Sodium 140, Potassium 4.7, Chloride 109 H, Carbon Dioxide 18.0 L, Anion Gap 13, BUN 74 H, Creatinine 6.52 H, Estim Creat Clear Calc 8.89, Est GFR (MDRD) Af Amer 11 L, Est GFR (MDRD) Non-Af 9 L, BUN/Creatinine Ratio 11.3, Glucose 119 H, Calcium 8.1 L 09/26/20 06:35: POC Glucose 118 H Rhythm Strip Rhythm Strip: Sinus Tach Rate: 112 Ectopy: None
[2020-09-26] MEDS: Tamsulosin HCl 0.4 MG Capsule PO (08:30)
[2020-09-26] MEDS: hydrALAZINE 50 MG Tablet PO ×2 (08:30→23:14)
[2020-09-26] MEDS: Heparin Injection (Vial) 5,000 UNIT/ML VIAL 5000 UNIT SC ×2 (08:30→23:13)
[2020-09-26] MEDS: Loperamide 2 MG Capsule PO ×2 (08:30→23:14)
[2020-09-26] MEDS: Cholecalciferol (VIT D3) 25 MCG TABLET (1,000 UNITS) PO (08:31)
[2020-09-26] MEDS: Acetaminophen 500 MG Tablet 1000 MG PO (08:31)
[2020-09-26] MEDS: Insulin Lispro 100 UNIT/ML INSULN.PEN SC ×2 (11:27→23:15)
[2020-09-26 12:25] LABS: Bedside Glucose 292 mg/dL (70-110)
--- NOTE | 2020-09-26 14:10 | PCM.PN.REN ---
Subjective Subjective denies any complaints Objective Data Objective Data Vital Signs: Vital Signs Temp Pulse Resp BP Pulse Ox 97.0 F L 96 18 142/62 H 97 09/26/20 13:58 09/26/20 13:58 09/26/20 13:58 09/26/20 13:58 09/26/20 13:58 Oxygen Flow Rate (L/min) 2 Oxygen Delivery Method Room Air Weight: 73.5 kg Body Mass Index (BMI) 22.8 Intake & Output: Intake and Output for Last 24 Hours 09/24/20 09/25/20 09/26/20 23:59 23:59 23:59 Intake Total 1434.58 / 1434.58 980 / 980 690 / 690 Output Total 2600 / 2600 4400 / 4400 3200 / 3200 Balance -1165.42 / -1165.42 -3420 / -3420 -2510 / -2510 Medical Nutrition Assessment Dietitian: Nutrition Therapy Diagnosis Start: 09/19/20 11:51 Freq: Status: Active Protocol: Document 09/25/20 10:40 RMA (Rec: 09/25/20 10:41 RMA [id number]) Nutrition Malnutrition Evidence of Malnutrition Exists No Intake Problem Inadequate Energy Intake Etiology related to decreased appetite with acute illness Signs/Symptoms as evidenced by pt & family report 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 Continue 120ml glucerna shake TID with meals. Liberalize diet and add oral nutrition supplements as needed to optimize oral intake if PO/cassandra decline at meals. Lab / Micro Data Result Diagrams: 09/26/20 06:00 09/26/20 06:00 Labs: Laboratory Results - last 24 hr 09/25/20 16:11: POC Glucose 121 H 09/25/20 21:52: POC Glucose 183 H 09/26/20 06:00: WBC 9.7, RBC 2.88 L, Hgb 7.8 L, Hct 24.8 L, MCV 86.1, MCH 27.1, MCHC 31.5 L, RDW Std Deviation 49.0 H, RDW Coeff of Darian 15.4 H, Plt Count 219, MPV 9.2, Immature Gran % (Auto) 2.800 H, Neut % (Auto) 83.5 H, Lymph % (Auto) 5.3 L, [place] % (Auto) 7.0, Eos % (Auto) 1.1, Baso % (Auto) 0.3, Absolute Neuts (auto) 8.1 H, Absolute Lymphs (auto) 0.51 L, Nucleated RBC % 0 09/26/20 06:00: Sodium 140, Potassium 4.7, Chloride 109 H, Carbon Dioxide 18.0 L, Anion Gap 13, BUN 74 H, Creatinine 6.52 H, Estim Creat Clear Calc 8.89, Est GFR (MDRD) Af Amer 11 L, Est GFR (MDRD) Non-Af 9 L, BUN/Creatinine Ratio 11.3, Glucose 119 H, Calcium 8.1 L 09/26/20 06:35: POC Glucose 118 H 09/26/20 11:26: POC Glucose 292 H Micro: Microbiology 09/18/20 14:55 Blood Culture (Wb) - Left Hand Blood Culture - Final Prevotella species Lactobacillus sp. 09/18/20 14:55 Blood Culture (Wb) - Anticubital Right Blood Culture - Preliminary Prevotella species Lactobacillus sp. Yeast Like Organism 09/18/20 16:30 Urine, Clean Catch Urine Culture - Final Lactobacillus sp. 09/18/20 15:00 Interface Orders SARS-CoV-2 Antigen (Rapid) - Final Rhythm Strip Rhythm Strip: Sinus Tach Rate: 112 Ectopy: None Physical Exam Narrative General: Alert and oriented x3, no apparent distress HEENT: Normocephalic, atraumatic. Mucous membrane moist. Heart: Normal S1, S2. No rubs or murmurs. Lungs: Clear to auscultation anteriorly. Abdomen: Normal bowel sound, soft, nontender. No guarding or rebound. Extremity: No clubbing or cyanosis. + edema in the lower extremity. Assessment & Plan Assessment/Plan (1) DEISI (acute kidney injury): PLAN: Baseline creatinine was around 2.0. Reviewed report from yesterday. It seems he did not have significant amount of hydro on pyelogram. Most likely ATN at this point. Urine output is okay through Judd catheter. Creatinine is only slightly better. He does have some generalized weakness, poor appetite. Probably early uremic symptoms. Since there is not much hydronephrosis, I doubt nephrostomy tubes will help. Most likely ATN. If renal function is not improved significantly he may need dialysis. Discussed with patient and . They would like to wait 1 more day. Discussed with hospitalist (2) Chronic kidney disease, stage 3b: PLAN: The patient has a baseline serum creatinine of around 2 to 2.5 mg/dL. He is in stage IIIb CKD at baseline. The patient has chronic urinary retention and requires CIC 3 times a day at home. 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 Currently has a Judd catheter (3) Hypertension: PLAN: BP is Ok. (4) Severe sepsis: PLAN: The patient has Lactobacillus gasseri in both the urine and blood. He is on Zosyn.
--- NOTE | 2020-09-26 15:23 | PN.HOSP_ITS ---
Subjective Subjective Doing well today, creatinine is little bit better, hemoglobin is little bit down but not too far from his baseline Objective Data Objective Data Vital Signs: Vital Signs Temp Pulse Resp BP Pulse Ox 97.0 F L 96 18 142/62 H 97 09/26/20 13:58 09/26/20 13:58 09/26/20 13:58 09/26/20 13:58 09/26/20 13:58 Oxygen Flow Rate (L/min) 2 Oxygen Delivery Method Room Air Weight: 162 lb 0.636 oz Body Mass Index (BMI) 22.8 Intake & Output: Intake and Output for Last 24 Hours 09/25/20 09/26/20 09/27/20 03:59 03:59 03:59 Intake Total 1440 / 1440 980 / 980 640 / 640 Output Total 2600 / 2600 4400 / 4400 3200 / 3200 Balance -1160 / -1160 -3420 / -3420 -2560 / -2560 Medical Nutrition Assessment Dietitian: Nutrition Therapy Diagnosis Start: 09/19/20 11:51 Freq: Status: Active Protocol: Document 09/25/20 10:40 RMA (Rec: 09/25/20 10:41 RMA [id number]) Nutrition Malnutrition Evidence of Malnutrition Exists No Intake Problem Inadequate Energy Intake Etiology related to decreased appetite with acute illness Signs/Symptoms as evidenced by pt & family report 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 Continue 120ml glucerna shake TID with meals. Liberalize diet and add oral nutrition supplements as needed to optimize oral intake if PO/cassandra decline at meals. Lab / Micro Data Result Diagrams: 09/26/20 06:00 09/26/20 06:00 Labs: Laboratory Results - last 24 hr 09/25/20 16:11: POC Glucose 121 H 09/25/20 21:52: POC Glucose 183 H 09/26/20 06:00: WBC 9.7, RBC 2.88 L, Hgb 7.8 L, Hct 24.8 L, MCV 86.1, MCH 27.1, MCHC 31.5 L, RDW Std Deviation 49.0 H, RDW Coeff of Darian 15.4 H, Plt Count 219, MPV 9.2, Immature Gran % (Auto) 2.800 H, Neut % (Auto) 83.5 H, Lymph % (Auto) 5.3 L, [place] % (Auto) 7.0, Eos % (Auto) 1.1, Baso % (Auto) 0.3, Absolute Neuts (auto) 8.1 H, Absolute Lymphs (auto) 0.51 L, Nucleated RBC % 0 09/26/20 06:00: Sodium 140, Potassium 4.7, Chloride 109 H, Carbon Dioxide 18.0 L , Anion Gap 13, BUN 74 H, Creatinine 6.52 H, Estim Creat Clear Calc 8.89, Est GFR (MDRD) Af Amer 11 L, Est GFR (MDRD) Non-Af 9 L, BUN/Creatinine Ratio 11.3, Glucose 119 H, Calcium 8.1 L 09/26/20 06:35: POC Glucose 118 H 09/26/20 11:26: POC Glucose 292 H Micro: Microbiology 09/18/20 14:55 Blood Culture (Wb) - Left Hand Blood Culture - Final Prevotella species Lactobacillus sp. 09/18/20 14:55 Blood Culture (Wb) - Anticubital Right Blood Culture - Preliminary Prevotella species Lactobacillus sp. Yeast Like Organism 09/18/20 16:30 Urine, Clean Catch Urine Culture - Final Lactobacillus sp. 09/18/20 15:00 Interface Orders SARS-CoV-2 Antigen (Rapid) - Final Rhythm Strip Rhythm Strip: Sinus Tach Rate: 112 Ectopy: None Physical Exam Narrative Const alert, oriented x3 and no apparent distress General Appearance: cooperative HEENT normocephalic and moist oral mucous membranes Eyes PERRL, EOMs intact bilaterally and conjunctivae normal Neck supple and no JVD Resp normal respiratory effort, no retractions, no use of accessory muscles and clear to auscultation bilaterally Auscultation: Negative for crackles, rales, rhonchi or wheezes Cardio regular rate, regular rhythm, S1 normal heart sound, S2 normal heart sound and no murmurs GI soft to palpation, non-tender and non-distended; Negative for hepatosplenomegaly Extremity no clubbing, cyanosis or edema Skin no rashes or lesions noted Neuro no focal motor deficits and no sensory deficits noted Psych affect normal Appearance: appropriate Assessment & Plan Assessment/Plan (1) Gram-positive bacteremia: (2) Bacteremia due to Gram-negative bacteria: (3) Complicated acute cystitis: (4) Recent DEISI on CKD: (5) Sepsis: QUALIFIERS: Sepsis type: sepsis due to unspecified organism Sepsis acute organ dysfunction status: unspecified Qualified Code(s): A41.9 - Sepsis, unspecified organism PLAN: 1. Sepsis secondary to complicated acute cystitis-this appears to be secondary to Lactobacillus, -Continue antibiotic coverage per ID, patient is currently on Zosyn, patient will be evaluated tomorrow by ID 09/23/2020: CT scan is pending to evaluate for an intra-abdominal source with anaerobes in his blood 09/24/2020: CT is unremarkable, it shows possible cystitis which we know he has and is being treated for 09/25/2020: Continue with antibiotics, plan for cystoscopy today and exchange of his stents\ 09/26/2020: Creatinine is 6.52, improved from 2 days ago. Continue with antibiotics 2. Acute kidney injury superimposed on chronic kidney disease stage IIIb- urology does not feel the patient's stents need to be changed at this time, nephrology is monitoring the patient's renal function, I have ordered a BMP for the patient today. Again urology feels that his stents are currently working. 09/23/2020: Appreciate nephrology's assistance 09/24/2020: Urology will take for cystoscopy tomorrow to replace his stents and provide larger stents, will await nephrology evaluation for today 09/25/2020: Creatinine is slightly improved today we will continue to monitor, appreciate nephrology's assistance 09/26/2020: Kidney function is better his DEISI is likely ATN at this point. In discussion with nephrology they will evaluate his renal function tomorrow and may need to initiate temporary dialysis, the patient is aware 3. Hypertension/HLD -Continue with hydralazine twice daily, continue with Lipitor -Blood pressure stable 4. Diabetes mellitus-continue to monitor blood sugars 5. History of prostate cancer -Patient currently self caths at home, again, he will self catheterize for the remainder of his hospital stay. 6. History of colorectal cancer with partial colectomy -Continue daily loperamide for loose stools 7. 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
[2020-09-26 17:00] LABS: Bedside Glucose 155 mg/dL (70-110)
[2020-09-26] MEDS: Atorvastatin Calcium 10 MG Tablet PO (23:15)
[2020-09-26 23:31] LABS: Bedside Glucose 228 mg/dL (70-110)
[2020-09-27 02:58] VITALS: BP 143/58; PULSE 94; RESP 16; TEMP 36.9; O2SAT 96
[2020-09-27 03:00] VITALS: PULSE 97
[2020-09-27 05:40] LABS: Hematocrit 25.5 % (40-54); Hemoglobin 7.8 g/dL (13.0-16.5); Mean Corp Hgb Conc 30.6 g/dL (32-36); Mean Corpuscular Hgb 26.2 pg (27.0-32.0); Mean Corpuscular Volume 85.6 fL (80-94); Mean Platelet Vol. 8.8 fl (6.2-12.0); POSITIVE COUNT YES; POSITIVE MORPHOLOGY YES; Platelet Count 261 K/mm3 (150-450); RBC Distribution Width CV 15.4 % (11.6-14.6); RBC Distribution Width SD 48.3 fl (35.1-43.9); Red Blood Count 2.98 M/mm3 (4.6-6.2); White Blood Count 9.2 K/mm3 (4.4-11.0)
[2020-09-27 06:01] LABS: Anion Gap 9 (5-15); BUN 65 mg/dL (7-18); Calcium,Total 8.2 mg/dL (8.5-10.1); Chloride 111 mmol/L (98-107); Creatinine, Serum 5.43 mg/dL (0.70-1.30); EST Glomerular Filtration Rate 11 mL/min (>60); Est Glom Filt Rate - Afr Amer 13 mL/min (>60); Estimated Creatinine Clearance 10.67 ml/min; Glucose 149 mg/dL (74-106); Potassium 4.3 mmol/L (3.5-5.1); Sodium Level 140 mmol/L (136-145)
[2020-09-27 06:08] LABS: Differential Indicated MANUAL DIFF; Lymphocyte 12 % (19-41); Metamyelocyte 3 % (0-1); Monocyte 4 % (0-10); Neutrophil-Band 3 % (0-5); Neutrophil-Segmented 78 % (47-70); Total Cells Counted 100 (MANUAL DIFF)
[2020-09-27 06:09] LABS: Absolute Neutrophil Count 7.5 X10^3/uL (2.0-7.7); Platelet Estimate ADEQUATE (ADEQ); Red Cell Morphology NORM C+C NORMAL (NORM C&C)
--- NOTE | 2020-09-27 06:38 | CON.PCM_ITS ---
Consult Date of Consult: 09/27/20 Status post placement of bilateral stents and a Judd catheter, good urine output, recommend we leave the Judd in place he needs to go home with a catheter to decompress both the kidneys his creatinine is improving hopefully will improve enough to the point to avoid dialysis at this point he can follow- up in my office in a few weeks.
[2020-09-27 06:55] LABS: Bedside Glucose 126 mg/dL (70-110)
[2020-09-27] MEDS: 0.9% Saline Lock 10 ML Syringe IV (06:58)
[2020-09-27 07:00] VITALS: PULSE 88
[2020-09-27 08:49] VITALS: BP 144/68; PULSE 101; RESP 16; TEMP 37; O2SAT 98
[2020-09-27 08:56] VITALS: PULSE 101
[2020-09-27] MEDS: Cholecalciferol (VIT D3) 25 MCG TABLET (1,000 UNITS) PO (08:56)
[2020-09-27] MEDS: Loperamide 2 MG Capsule PO (08:56)
[2020-09-27] MEDS: Tamsulosin HCl 0.4 MG Capsule PO (08:56)
[2020-09-27] MEDS: Acetaminophen 500 MG Tablet 1000 MG PO (08:56)
[2020-09-27] MEDS: hydrALAZINE 50 MG Tablet PO (08:56)
[2020-09-27] MEDS: Heparin Injection (Vial) 5,000 UNIT/ML VIAL 5000 UNIT SC (08:57)
[2020-09-27] MEDS: Insulin Lispro 100 UNIT/ML INSULN.PEN SC (11:24)
[2020-09-27 11:30] LABS: Bedside Glucose 351 mg/dL (70-110)
[2020-09-27 11:47] LABS: Pathologist Review Reviewed
--- NOTE | 2020-09-27 12:16 | CASEMGMT ---
Addendum entered by Araceli Cuellar 09/27/20 14:11: Call back from Neha at [facility] and she states they can accept pt. Pt/ aware, voice understanding. Gilson HERRON CM Addendum entered by Araceli Cuellar 09/27/20 14:00: Neha at [facility] updated that pt to discharge today. Pt will go home with akers catheter but pt normally self-caths at home and has had akers on past discharges. Pt/ voice no need for C SN for akers. This RN CM still awaiting final acceptance from [facility]. Pt/ voice no further questions/concerns/needs. Gilson HERRON CM Original Note: this RN CM to room and pt as well as and daughter are in room. Pt/family would like [facility] and state they would like [facility] as pt has had them in the past. Pt declines list of local in-network [facility] companies. Order placed for PT/OT and message left with Neha at [facility] regarding referral. CM to follow. Pt//daughter voice no further questions/concerns/needs. Gilson HERRON CM
--- NOTE | 2020-09-27 13:29 | PCM.DC ---
Discharge Instructions Diet Discharge Diet: Carb Control Diet Activity Discharge Activity: Return to Normal Activity Dressing / Incision Call your doctor if you observe: Fever of 101 or Higher, Shortness of breath, Dizziness, Swelling in the ankles, Chest pain and Increased palpitations (irregular heartbeat) Follow Up Care Test Results: Test results from this visit will be discussed in further detail at your follow-up appointment, if applicable. Discharge Plan Admission Admit Date/Time: 09/18/20 17:27 Attending Provider: Ryan Salas Primary Care Provider: Srinivas Thayer Consulting Providers: Eric Mccollum ; Brandi Vallejo ; Tal Hill Instructions Additional Instructions / Restrictions: Follow-up with your PCP in 3 to 5 days to obtain an outpatient CBC to evaluate your anemia, would also obtain a BMP to follow your kidney disease. Discharge Orders/Prescriptions Prescriptions: New amoxicillin-pot clavulanate 250-125 mg tablet 1 tab PO BID Qty: 6 RF: 0 Continued loperamide 2 MG capsule 2 mg PO BID RF: 0 cholecalciferol (vitamin D3) 1,000 UNIT tablet 1,000 unit PO DAILY RF: 0 tamsulosin 0.4 MG capsule 0.4 mg PO DAILY Qty: 30 RF: 0 hydralazine 50 MG tablet 50 mg PO BID Qty: 60 RF: 0 atorvastatin 10 mg tablet 10 mg PO QHS RF: 0 insulin glargine 100 UNITS/ML insulin pen 10 units SC DAILY RF: 0 acetaminophen [Tylenol Extra Strength] 500 mg Tablet 1,000 mg PO DAILY RF: 0 diphenhydramine-acetaminophen [Tylenol PM Extra Strength] 25-500 mg Tablet 2 tab PO QHS PRN (Reason: PAIN AND SLEEP) RF: 0 Discontinued ciprofloxacin HCl 500 mg tablet 500 mg PO BID RF: 0 Referrals / Follow Up: Brandi Vallejo MD [STAFF PHYSICIAN] - Within 2 Weeks Tal Hill MD [STAFF PHYSICIAN] - In 1 Week Srinivas Thayer MD [Primary Care Provider] - Within 1 Week Disposition Disposition (needs filled in before D/C Order can be placed): Home Health Service
--- NOTE | 2020-09-27 13:42 | DS.PCM_ITS ---
Providers Date of Admission: 09/18/20 Primary Care Physician: Dr. Srinivas Thayer MD Consultations 09/18/20 17:57 Consult: Infectious Disease Routine Consulting Provider: Eric Mccollum Reason for Consult: History of fungal infection EMERGENT Consult: No Notified: Yes Date Notified: 09/18/20 Time Notified: 17:26 Method of Notification: Provider Initiated 09/19/20 08:11 Consult: Nephrology Routine Consulting Provider: Brandi Vallejo Reason for Consult: renal failure EMERGENT Consult: No Notified: Yes Date Notified: 09/19/20 Time Notified: 08:11 Method of Notification: Verbal 09/20/20 18:29 Consult: Urology Routine Consulting Provider: Tal Hill Reason for Consult: renal failure EMERGENT Consult: No Notified: Yes Date Notified: 09/19/20 Time Notified: 19:00 Method of Notification: Verbal Reason For Visit: SEPSIS, CHRONIC RENAL INSUFFICIENCY Diagnosis Discharge Diagnosis (1) Gram-positive bacteremia: Status: Acute Code(s): R78.81 - Bacteremia (2) Bacteremia due to Gram-negative bacteria: Status: Acute Code(s): R78.81 - Bacteremia (3) Complicated acute cystitis: Status: Acute (4) Recent DEISI on CKD: Status: Acute (5) Sepsis: Status: Acute Code(s): A41.9 - Sepsis, unspecified organism Qualifiers: Sepsis type: sepsis due to unspecified organism Sepsis acute organ dysfunction status: unspecified Qualified Code(s): A41.9 - Sepsis, unspecified organism Medications at Discharge Home Medications cholecalciferol (vitamin D3) 1,000 unit PO DAILY 12/08/19 loperamide 2 mg PO BID 12/08/19 hydralazine 50 mg PO BID #60 tablet 05/07/20 tamsulosin 0.4 mg PO DAILY #30 cap 05/07/20 atorvastatin 10 mg PO QHS 07/03/20 insulin glargine 10 units SC DAILY 07/03/20 acetaminophen [Tylenol Extra Strength] 1,000 mg PO DAILY 09/18/20 diphenhydramine-acetaminophen [Tylenol PM Extra Strength] 2 tab PO QHS PRN 09/18/20 amoxicillin-pot clavulanate 1 tab PO BID #6 tab 09/27/20 Hospital Course Operations None Procedures - (Cystoscopy with stent exchange) Summary of Care Provided Minutes Spent on Discharge: 50 Hospital Course: Per HPI: ALEA SALGADO, is a 79 M who presents with complaints of fever and weakness. Patient states that over the past 24 hours he has become very weak and has had a fever as high as 103. Family is concerned that he has become so weak so quickly and is concerned that he has a fungal infection again which she was treated for in April of this year. Patient denies chest pain, shortness of breath, cough, nausea, vomiting. Patient reports diarrhea but states that this is chronic for him following a partial colectomy for colorectal cancer. Hospital Course: 1. Sepsis secondary to complicated acute cystitis-this appears to be secondary to Lactobacillus, -Continue antibiotic coverage per ID, patient is currently on Zosyn, patient will be evaluated tomorrow by ID 09/23/2020: CT scan is pending to evaluate for an intra-abdominal source with anaerobes in his blood 09/24/2020: CT is unremarkable, it shows possible cystitis which we know he has and is being treated for 09/25/2020: Continue with antibiotics, plan for cystoscopy today and exchange of his stents\ 09/26/2020: Creatinine is 6.52, improved from 2 days ago. Continue with antibiotics 09/27/2020: Creatinine is down to under 6, he will go home today with follow-up with nephrology. Recommend keeping his Judd in place. He will need to continue Augmentin for 3 more days twice daily per infectious disease. He will follow up with [facility] next week to have his Judd removed. Given his weakness he will also have home health for PT and OT at home. I discussed the plan for discharge today with him and his and they both expressed understanding of the risk benefits of going home and would like to go home today. 2. Acute kidney injury superimposed on chronic kidney disease stage IIIb- urology does not feel the patient's stents need to be changed at this time, nephrology is monitoring the patient's renal function, I have ordered a BMP for the patient today. Again urology feels that his stents are currently working. 09/23/2020: Appreciate nephrology's assistance 09/24/2020: Urology will take for cystoscopy tomorrow to replace his stents and provide larger stents, will await nephrology evaluation for today 09/25/2020: Creatinine is slightly improved today we will continue to monitor, appreciate nephrology's assistance 09/26/2020: Kidney function is better his DEISI is likely ATN at this point. In discussion with nephrology they will evaluate his renal function tomorrow and may need to initiate temporary dialysis, the patient is aware 3. Hypertension/HLD -Continue with hydralazine twice daily, continue with Lipitor -Blood pressure stable 4. Diabetes mellitus-continue to monitor blood sugars 5. History of prostate cancer -We will continue with Judd in place until he follows up with urology. At that point they may remove the Judd and transition back to self catheterizations 6. History of colorectal cancer with partial colectomy -Continue daily loperamide for loose stools 7. 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 Physical Exam Narrative Const alert, oriented x3 and no apparent distress General Appearance: cooperative HEENT normocephalic and moist oral mucous membranes Eyes PERRL, EOMs intact bilaterally and conjunctivae normal Neck supple and no JVD Resp normal respiratory effort, no retractions, no use of accessory muscles and clear to auscultation bilaterally Auscultation: Negative for crackles, rales, rhonchi or wheezes Cardio regular rate, regular rhythm, S1 normal heart sound, S2 normal heart sound and no murmurs GI soft to palpation, non-tender and non-distended; Negative for hepatosplenomegaly Extremity no clubbing, cyanosis or edema Skin no rashes or lesions noted Neuro no focal motor deficits and no sensory deficits noted Psych affect normal Appearance: appropriate Medical Records Data Medical Nutrition Assessment Dietitian: Nutrition Therapy Diagnosis Start: 09/19/20 11:51 Freq: Status: Active Protocol: Document 09/25/20 10:40 RMA (Rec: 09/25/20 10:41 RMA [id number]) Nutrition Malnutrition Evidence of Malnutrition Exists No Intake Problem Inadequate Energy Intake Etiology related to decreased appetite with acute illness Signs/Symptoms as evidenced by pt & family report 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 Continue 120ml glucerna shake TID with meals. Liberalize diet and add oral nutrition supplements as needed to optimize oral intake if PO/cassandra decline at meals. Weight / BMI Weight Weight: 154 lb 15.759 oz Body Mass Index (BMI) 22.8 ABG / Lab / Microbiology Data Result Diagrams: 09/27/20 05:15 09/27/20 05:15 Laboratory: Laboratory Results - last 24 hr 09/26/20 16:52: POC Glucose 155 H 09/26/20 23:11: POC Glucose 228 H 09/27/20 05:15: WBC 9.2, RBC 2.98 L, Hgb 7.8 L, Hct 25.5 L, MCV 85.6, MCH 26.2 L , MCHC 30.6 L, RDW Std Deviation 48.3 H, RDW Coeff of Darian 15.4 H, Plt Count 261, MPV 8.8, Neut % (Auto) Not Reportable, Absolute Neuts (auto) 7.5, Absolute Lymphs (auto) 1.10, Total Counted 100, Neutrophils % (Manual) 78 H, Band Neutrophils % 3, Lymphocytes % (Manual) 12 L, Monocytes % (Manual) 4, Metamyelocytes % 3 H, Diff Path Review Reviewed, Platelet Estimate ADEQUATE, RBC Morphology NORM C+C 09/27/20 05:15: Sodium 140, Potassium 4.3, Chloride 111 H, Carbon Dioxide 20.0 L , Anion Gap 9, BUN 65 H, Creatinine 5.43 H, Estim Creat Clear Calc 10.67, Est GFR (MDRD) Af Amer 13 L, Est GFR (MDRD) Non-Af 11 L, BUN/Creatinine Ratio 12.0, Glucose 149 H, Calcium 8.2 L 09/27/20 06:49: POC Glucose 126 H 09/27/20 11:24: POC Glucose 351 H Microbiology: Microbiology 09/18/20 14:55 Blood Culture (Wb) - Anticubital Right Blood Culture - Final Prevotella species Lactobacillus sp. Zoila kefyr 09/18/20 14:55 Blood Culture (Wb) - Left Hand Blood Culture - Final Prevotella species Lactobacillus sp. 09/18/20 16:30 Urine, Clean Catch Urine Culture - Final Lactobacillus sp. 09/18/20 15:00 Interface Orders SARS-CoV-2 Antigen (Rapid) - Final D/C Instructions Discharge Diet: Carb Control Diet Call your doctor if you observe: Fever of 101 or Higher, Shortness of breath, Dizziness, Swelling in the ankles, Chest pain and Increased palpitations (i rregular heartbeat) Meaningful Use Info Meaningful Use Diagnoses (Choose all that apply): None applicable Discharge Plan Admission Admit Date/Time: 09/18/20 17:27 Attending Provider: Ryan Salas Primary Care Provider: Srinivas Thayer Consulting Providers: Eric Mccollum ; Brandi Vallejo ; Tal Hill Instructions Additional Instructions / Restrictions: Follow-up with your PCP in 3 to 5 days to obtain an outpatient CBC to evaluate your anemia, would also obtain a BMP to follow your kidney disease. Discharge Orders/Prescriptions Prescriptions: New amoxicillin-pot clavulanate 250-125 mg tablet 1 tab PO BID Qty: 6 RF: 0 Continued loperamide 2 MG capsule 2 mg PO BID RF: 0 cholecalciferol (vitamin D3) 1,000 UNIT tablet 1,000 unit PO DAILY RF: 0 tamsulosin 0.4 MG capsule 0.4 mg PO DAILY Qty: 30 RF: 0 hydralazine 50 MG tablet 50 mg PO BID Qty: 60 RF: 0 atorvastatin 10 mg tablet 10 mg PO QHS RF: 0 insulin glargine 100 UNITS/ML insulin pen 10 units SC DAILY RF: 0 acetaminophen [Tylenol Extra Strength] 500 mg Tablet 1,000 mg PO DAILY RF: 0 diphenhydramine-acetaminophen [Tylenol PM Extra Strength] 25-500 mg Tablet 2 tab PO QHS PRN (Reason: PAIN AND SLEEP) RF: 0 Discontinued ciprofloxacin HCl 500 mg tablet 500 mg PO BID RF: 0 Referrals / Follow Up: Brandi Vallejo MD [STAFF PHYSICIAN] - 10/09/20 1:45 pm Tal Hill MD [STAFF PHYSICIAN] - In 1 Week (Office is closed currently. Please call to set up a appointment. ) Srinivas Thayer MD [Primary Care Provider] - Within 1 Week (Please call to make an appointment.) Disposition Disposition (needs filled in before D/C Order can be placed): Home Health Service Charges/Coding Visit Charges Inpatient E&M: 61091 Disch Hosp
--- NOTE | 2020-09-27 14:55 | PHA.DC.MC ---
Pharmacy Service has performed discharge medication reconciliation and counseling for this patient. 1. AUGMENTIN 250MG PO BID X 3 DAYS The patient's discharge medication list was reviewed for discrepancies and discrepancies were resolved. Home Medications cholecalciferol (vitamin D3) 1,000 unit PO DAILY 12/08/19 loperamide 2 mg PO BID 12/08/19 hydralazine 50 mg PO BID #60 tablet 05/07/20 tamsulosin 0.4 mg PO DAILY #30 cap 05/07/20 atorvastatin 10 mg PO QHS 07/03/20 insulin glargine 10 units SC DAILY 07/03/20 acetaminophen [Tylenol Extra Strength] 1,000 mg PO DAILY 09/18/20 diphenhydramine-acetaminophen [Tylenol PM Extra Strength] 2 tab PO QHS PRN 09/18/20 amoxicillin-pot clavulanate 1 tab PO BID #6 tab 09/27/20 The patient was counseled on the following discharge medications and changes in medications for homegoing were reviewed. The Reason for Use, instructions for use, and potential side effects were reviewed for all new medications. The patient's questions regarding all of their medications were answered. The patient was able to verbally demonstrate an understanding of their discharge medications.
--- NOTE | 2020-09-30 15:32 | CASEMGMT ---
GOPAL ANDERSON Discharge Follow-up Phone Call: MARIANNE: Harshal Strata: 3 Call Date: 09/30/20 Discharge Date: 09/27/20 Time of Call: 1530 Duration: 3 min Admitting Diagnosis: Sepsis, chronic renal insufficiency GOPAL ANDERSON completed follow-up phone call after recent hospitalization. Patient states he is doing alright. Patient had no questions or concerns regarding discharge instructions. Patient was able to fill prescription without any issues. Patient has follow-up appt scheduled. Patient was seen by [facility] today. Patient had no further questions or concerns.
== END 2020-09-27 15:16 | disposition home health service (06) | DRG 853 ==
LOC: ED 16:24 → PCU 17:43
PROVIDERS: Anesthesiology; Nurse Practitioner Family; Urology; Admitting Provider Internal Medicine; Emergency Provider Emergency Medicine; PCP Family Medicine; Visit Provider Family Medicine
PROC: 0T788DZ Dilation of Bilateral Ureters with Intraluminal Device, Via Natural or Artificial Opening Endoscopic (ICD-10-PCS; CPT 52332; principal; 2020-09-25 14:50)
DX: A41.9 Sepsis, unspecified organism (principal); N17.0 Acute kidney failure with tubular necrosis; N13.6 Pyonephrosis; B96.89 Other specified bacterial agents as the cause of diseases classified elsewhere; R65.20 Severe sepsis without septic shock; R33.9 Retention of urine, unspecified; N35.919 Unspecified urethral stricture, male, unspecified site; E11.22 Type 2 diabetes mellitus with diabetic chronic kidney disease; I12.9 Hypertensive chronic kidney disease with stage 1 through stage 4 chronic kidney disease, or unspecified chronic kidney disease; N18.32 Chronic kidney disease, stage 3b; D63.1 Anemia in chronic kidney disease; Z20.822 Contact with and (suspected) exposure to COVID-19; E78.00 Pure hypercholesterolemia, unspecified; E78.5 Hyperlipidemia, unspecified; G25.81 Restless legs syndrome; M81.0 Age-related osteoporosis without current pathological fracture; H91.93 Unspecified hearing loss, bilateral; Z79.4 Long term (current) use of insulin; Z79.899 Other long term (current) drug therapy; Z92.3 Personal history of irradiation; Z85.46 Personal history of malignant neoplasm of prostate; Z85.048 Personal history of other malignant neoplasm of rectum, rectosigmoid junction, and anus; Z87.891 Personal history of nicotine dependence; Z90.49 Acquired absence of other specified parts of digestive tract; Z90.79 Acquired absence of other genital organ(s)
CPT/HCPCS: 36415; 71045; 74176; 76000; 76770; 80048; 80053; 81001; 82962; 83036; 83605; 85025; 85610; 85730; 87040; 87077; 87086; 87088; 87426; 93005; 97110; 97116; 97162; 97166; 97530; 97535; 97802; 97803; 99285; J7030; J7040; J7050; A4216; C1769; C1874; C2617; J2405

== ENCOUNTER 2020-10-01 13:31 | Emergency (ER) | payer MEDICARE, SELFPAY ==
[2020-09-18 13:11] VITALS: BMI 22.8
[2020-10-01 13:32] VITALS: BP 127/59; PULSE 109; RESP 16; TEMP 36.3; O2SAT 98; BMI 22.8
[2020-10-01 14:01] LABS: Absolute Lymphocyte Count 1.18 X10^3/uL (0.83-4.51); Absolute Neutrophil Count 10.6 X10^3/uL (2.0-7.7); Basophil# 0.03 X10^3/uL; Basophil% 0.2 % (0-1); Eosinophil# 0.09 X10^3/uL; Eosinophils% 0.7 % (0-5); Hematocrit 28.6 % (40-54); Hemoglobin 8.8 g/dL (13.0-16.5); Lymphocyte # 1.18 X10^3/ul (0.83-4.51); Lymphocyte % 8.9 % (19-41); Mean Corp Hgb Conc 30.8 g/dL (32-36); Mean Corpuscular Hgb 26.7 pg (27.0-32.0); Mean Corpuscular Volume 86.9 fL (80-94); Mean Platelet Vol. 9.8 fl (6.2-12.0); Monocyte# 1.04 X10^3/uL; Monocyte% 7.9 % (0-10); NRBC Flagged by Analyzer 0 % (0-5); Neutrophil # 10.62 X10^3/uL (2.7-7.7); Neutrophil % 80.5 % (47-70); POSITIVE COUNT YES; Platelet Count 355 K/mm3 (150-450); RBC Distribution Width CV 15.3 % (11.6-14.6); Red Blood Count 3.29 M/mm3 (4.6-6.2); White Blood Count 13.2 K/mm3 (4.4-11.0)
[2020-10-01 14:02] LABS: Differential Indicated SCAN CRITERIA MET
[2020-10-01 14:10] LABS: Color, Urine Amber (Yellow); Glucose, Dipstick 250 mg/dl (Normal); Ketone-Dipstick Negative (Negative); Leukocyte Esterase-Dipstick 500 /ul (Negative); Nitrite-Dipstick Negative (Negative); Occult Blood-Urine 250 /ul (Negative); Protein-Dipstick 100 mg/dl (Negative); Specific Gravity, Urine 1.015 (1.002-1.030); Urine Bilirubin Dipstick Negative (Negative); Urine Clarity Cloudy (Clear); Urine Urobilinogen Normal (Normal)
[2020-10-01 14:11] LABS: Anion Gap 8 (5-15); BUN 42 mg/dL (7-18); BUN/Creat Ratio 12.8 RATIO (10-20); Calcium,Total 9.1 mg/dL (8.5-10.1); Chloride 102 mmol/L (98-107); Creatinine, Serum 3.29 mg/dL (0.70-1.30); EST Glomerular Filtration Rate 19 mL/min (>60); Est Glom Filt Rate - Afr Amer 23 mL/min (>60); Estimated Creatinine Clearance 17.52 ml/min; Glucose 263 mg/dL (74-106); Potassium 4.2 mmol/L (3.5-5.1); Sodium Level 133 mmol/L (136-145)
[2020-10-01 14:17] LABS: Red Blood Cells-Urine > 100 SEEN /hpf (0-5)
[2020-10-01 14:19] LABS: Bacteria RARE /hpf (None Seen); Mucous, Urine RARE /hpf (<or=2+); Squamous Epithelial Cells - UA 0-5 SEEN /hpf (0-5); White Blood Cells 25-50 SEEN /hpf (0-5); Yeast-Urine 3+ /hpf (None Seen)
[2020-10-01 14:28] LABS: Hypochromasia 2+; Platelet Estimate ADEQUATE (ADEQ)
--- NOTE | 2020-10-01 14:35 | CT_ITS ---
STUDY: CT ABDOMEN AND PELVIS WITHOUT CONTRAST REASON FOR EXAM: Male, 79 years old. Right flank pain. Stage III chronic renal disease. Bilateral ureteral stents. History of rectal and prostate carcinoma. RADIATION DOSAGE (If Supplied By Facility): CTDIvol = ( 6.31 ) mGy, DLP = ( 331.08 ) mGycm TECHNIQUE: Transaxial images were obtained from the dome of the diaphragm to the symphysis pubis without oral contrast, and without intravenous contrast. Sagittal and coronal images were reconstructed. Individualized dose optimization techniques were used for this CT. COMPARISON: Comparison is made with prior examination dated 09/23/2020. FINDINGS: Small residual bilateral pleural effusions right greater than left although there has been improvement. Persistent bibasilar atelectasis and/or infiltrates. Coronary artery calcification. Normal liver. There is a solitary gallstone. Normal spleen. Normal pancreas. There is a small, circumscribed, smooth, low attenuation left adrenal mass, consistent with an adrenal adenoma. This measures 1 cm. Normal right adrenal gland. There is moderate cortical atrophy of the right kidney, consistent with chronic medical renal disease. There is evidence of bilateral ureteral stents. No significant hydronephrosis is seen. Normal visualized stomach. Normal small intestine. Surgical anastomosis seen at the level of the rectum. Sigmoid diverticulosis with no radiographic evidence of diverticulitis. The appendix is visualized and appears normal. There is scattered atherosclerotic calcification of the abdominal aorta, without a demonstrated aneurysm. Normal inferior vena cava. Normal retroperitoneum. Diffuse bladder wall thickening. A MEJIA catheter is seen within the urinary bladder. Since prior study, there has been a decrease in the inflammatory changes in the pelvis adjacent to the urinary bladder. Stable prominent soft tissues in the presacral space most likely secondary to postoperative changes. This is unchanged. Increased markings in the subcutaneous fat overlying the lower anterior pelvis most likely postoperative in nature. Stable sclerotic changes involving the L4 and L5 vertebral bodies as well as the sacrum. CT/Abdomen/Pelvis without Cont IMPRESSION: Essentially stable examination except for decreased inflammatory changes in the pelvic fat. Interval decrease in the bilateral pleural effusions. Electronically Signed: Michael Cormier MD at 15:16 EDT , Service support ,
--- NOTE | 2020-10-01 14:37 | EX.ED.GUMALE ---
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 Patient has history of bilateral renal stents and these were recently changed about a week ago by Dr. Hill secondary to acute on chronic renal failure. Patient has been voiding and notes clots in the Judd catheter bag. Patient does have right flank pain which is new since yesterday. He is not had a fever. He has a small amount of blood in his urine. Patient has a history of kidney stones. Patient's family states he has been generally weak recently but no new changes in the last couple of days other than pain in the right flank. [facility] Medical History Anemia Cancer Cancer of prostate Cancer of rectum Chronic kidney disease Chronic kidney disease, stage 3b Current use of insulin Depression Diabetes Former smoker H/O fungal disease Hearing loss, left Hearing loss, right High cholesterol History of immunosuppression therapy Hypertension Kidney disease Osteoporosis Restless legs Self-catheterizes urinary bladder Tendonitis of ankle Wears hearing aid in both ears Home Medications cholecalciferol (vitamin D3) 1,000 unit PO DAILY 12/08/19 [History Last Taken 09/18/20] loperamide 2 mg PO BID 12/08/19 [History Last Taken 09/18/20] hydralazine 50 mg PO BID #60 tablet 05/07/20 [Rx Last Taken 09/18/20] tamsulosin 0.4 mg PO DAILY #30 cap 05/07/20 [Rx Last Taken 09/18/20] insulin glargine 10 units SC DAILY 07/03/20 [History Last Taken 09/18/20] acetaminophen [Tylenol Extra Strength] 1,000 mg PO DAILY 09/18/20 [History Last Taken 09/18/20] diphenhydramine-acetaminophen [Tylenol PM Extra Strength] 2 tab PO QHS PRN 09/18/20 [History Last Taken 09/17/20] hydrocodone-acetaminophen 1 tab PO Q6H PRN PRN 3 Days #12 tablet 10/01/20 [Rx Last Taken Unknown] Allergy/AdvReac Type Severity Reaction Status Date / Time No Known Allergies Allergy Verified 10/01/20 13:33 Family History Mother Diabetes Father CVA (cerebral vascular accident) Sister Heart disease Brother Heart disease Surgical History H/O partial resection of colon History of renal stent S/P TURP (status post transurethral resection of prostate) Social History Smoking Status: Former smoker alcohol intake: never substance use type: does not use ROS ROS ED Constitutional Constitutional ED: Denies chills, fever(s) or sweats Eyes Eyes: Denies blurry vision or change in vision ENT ENT ED: Denies rhinorrhea or sore throat Cardiovascular Cardiovascular: Denies chest pain or palpitations Respiratory/Chest Respiratory/Chest: Denies dyspnea or sputum Gastrointestinal Gastrointestinal: Reports other Details: Right flank pain ; Denies diarrhea or vomiting Musculoskeletal Musculoskeletal: Denies arthralgias, myalgias or neck pain Integumentary Denies rash Neurologic Neurologic: Denies headache(s) or paresthesias Psychiatric Psychiatric: Denies anxiety or depression EXAM Physical Exam Const Vital Signs: 10/01/20 13:32 10/01/20 15:19 10/01/20 16:50 Temperature 97.3 F L 98.2 F Temperature Source Temporal Oral Pulse Rate 109 H 101 H Respiratory Rate 16 16 16 Blood Pressure 127/59 H 140/62 H Blood Pressure Mean 81 88 Pulse Ox 98 97 Oxygen Delivery Method Room Air Room Air Positive well nourished General Appearance ED: NAD HEENT Reports moist mucous membranes normocephalic and atraumatic Eyes PERRL and EOMs intact bilaterally Resp normal respiratory effort and clear to auscultation bilaterally Cardio regular rate and regular rhythm GI Palpation: tender RLQ Narrative: Judd catheter in place draining clear/pink urine with clots in the Judd catheter tubing Bladder / Kidney Exam: CVA tenderness right Extremity normal to inspection General Extremety ED: Negative for edema or tenderness General Extremity: Negative for edema Neuro oriented x3 Sensorium / Orientation: alert Psych mental status grossly normal Skin Lesions: no lesions Rashes: no rashes MDM MDM MDM Narrative Medical decision making narrative: Patient presenting with right flank pain. I did check a urinalysis which is 500 leukocyte esterase, occult blood, 25-50 RBCs, 0-5 squamous epithelial cells. This is from his Judd catheter however. I will send this for culture. CBC shows a leukocytosis of 13.2, hemoglobin 8.8 and at baseline, platelets 355. Creatinine is improved to 3.29. Patient given morphine and Zofran for pain and nausea respectively. I did dependency counselor the family that his CT shows improvement of the inflammation from previous and his kidney function is improving. Patient continues to have pain in the right flank. I will write him some [place] until he can follow-up with Dr. Hill. Patient will follow up for urine culture. Patient has follow-up with urology in 2 days. Impression: 1. Right flank pain 2. Hematuria Lab Data Attestation: I reviewed the patient's lab results. Labs: Laboratory Results - last 24 hr 10/01/20 10/01/20 10/01/20 13:55 13:55 14:00 WBC 13.2 H RBC 3.29 L Hgb 8.8 L Hct 28.6 L MCV 86.9 MCH 26.7 L MCHC 30.8 L RDW Std Deviation 49.0 H RDW Coeff of Darian 15.3 H Plt Count 355 MPV 9.8 Immature Gran % (Auto) 1.800 H Neut % (Auto) 80.5 H Lymph % (Auto) 8.9 L Emmons % (Auto) 7.9 Eos % (Auto) 0.7 Baso % (Auto) 0.2 Absolute Neuts (auto) 10.6 H Absolute Lymphs (auto) 1.18 Nucleated RBC % 0 Platelet Estimate ADEQUATE Hypochromasia 2+ Sodium 133 L Potassium 4.2 Chloride 102 Carbon Dioxide 23.0 Anion Gap 8 BUN 42 H Creatinine 3.29 H Estim Creat Clear Calc 17.52 Est GFR (MDRD) Af Amer 23 L Est GFR (MDRD) Non-Af 19 L BUN/Creatinine Ratio 12.8 Glucose 263 H Calcium 9.1 Urine Color Sarah Urine Clarity Cloudy Urine pH 6.0 Ur Specific [place] 1.015 Urine Protein 100 H Urine Glucose (UA) 250 H Urine Ketones Negative Urine Occult Blood 250 H Urine Nitrite Negative Urine Bilirubin Negative Urine Urobilinogen Normal Ur Leukocyte Esterase 500 H Urine RBC > 100 SEEN Urine WBC 25-50 SEEN Ur Squamous Epith Cells 0-5 SEEN Urine Bacteria RARE Urine Mucus RARE Urine Yeast 3+ Radiography Diagnostic Testing: Radiology Impression Abdomen/Pelvis CT 10/01/20 14:35 IMPRESSION: Essentially stable examination except for decreased inflammatory changes in the pelvic fat. Interval decrease in the bilateral pleural effusions. Electronically Signed: Michael Cormier MD at 15:16 EDT , Service support , Discharge Plan Triage Chief Complaint: Flank Pain ED Provider: Robert Meyers Dx/Rx/DC Orders Instructions: ED Flank Pain, Uncertain Cause, ED Hematuria Prescriptions: New hydrocodone-acetaminophen 5-325 mg tablet 1 tab PO Q6H PRN PRN (Reason: Pain) 3 Days Qty: 12 RF: 0 No Action loperamide 2 MG capsule 2 mg PO BID RF: 0 cholecalciferol (vitamin D3) 1,000 UNIT tablet 1,000 unit PO DAILY RF: 0 tamsulosin 0.4 MG capsule 0.4 mg PO DAILY Qty: 30 RF: 0 hydralazine 50 MG tablet 50 mg PO BID Qty: 60 RF: 0 insulin glargine 100 UNITS/ML insulin pen 10 units SC DAILY RF: 0 acetaminophen [Tylenol Extra Strength] 500 mg Tablet 1,000 mg PO DAILY RF: 0 diphenhydramine-acetaminophen [Tylenol PM Extra Strength] 25-500 mg Tablet 2 tab PO QHS PRN (Reason: PAIN AND SLEEP) RF: 0 Primary Care Provider: Srinivas Thayer Referrals: Tal Hill MD [STAFF PHYSICIAN] - 2 Days Srinivas Thayer MD [Primary Care Provider] - Disposition Disposition: Home, Self Care Discharge Date/Time: 10/01/20 16:51
[2020-10-01] MEDS: Morphine 4 MG/ML Syringe IV (15:11)
[2020-10-01] MEDS: Ondansetron 4 MG/2 ML Vial IV (15:13)
[2020-10-01 15:19] VITALS: BP 140/62; PULSE 101; RESP 16; TEMP 36.8; O2SAT 97
[2020-10-01 16:50] VITALS: RESP 16
[2020-10-01] MEDS: HYDROcodone Bitartrate/Apap 5/325 Tablet PO (16:50)
== END 2020-10-01 16:51 | disposition home or self-care (01) ==
PROVIDERS: Emergency Provider Student in an Organized Health Care Education/Training Program; PCP Family Medicine
DX: R10.9 Unspecified abdominal pain (principal); R31.9 Hematuria, unspecified; I12.9 Hypertensive chronic kidney disease with stage 1 through stage 4 chronic kidney disease, or unspecified chronic kidney disease; E11.22 Type 2 diabetes mellitus with diabetic chronic kidney disease; N18.32 Chronic kidney disease, stage 3b; Z79.4 Long term (current) use of insulin; Z87.891 Personal history of nicotine dependence; Z87.442 Personal history of urinary calculi
CPT/HCPCS: 74176; 80048; 81001; 85025; 87086; 87088; 96374; 96375; 99284; A4216; J2405

== ENCOUNTER → 2020-10-04 15:41 | Outpatient (CLI) | payer MEDICARE, SELFPAY ==
[2020-10-01 13:32] VITALS: BMI 22.8
[2020-10-04 17:51] LABS: Absolute Lymphocyte Count 0.71 X10^3/uL (0.83-4.51); Absolute Neutrophil Count 9.1 X10^3/uL (2.0-7.7); Basophil# 0.04 X10^3/uL; Basophil% 0.4 % (0-1); Eosinophil# 0.03 X10^3/uL; Eosinophils% 0.3 % (0-5); Hematocrit 27.3 % (40-54); Hemoglobin 8.4 g/dL (13.0-16.5); Lymphocyte # 0.71 X10^3/ul (0.83-4.51); Lymphocyte % 6.6 % (19-41); Mean Corp Hgb Conc 30.8 g/dL (32-36); Mean Corpuscular Hgb 26.6 pg (27.0-32.0); Mean Corpuscular Volume 86.4 fL (80-94); Mean Platelet Vol. 9.4 fl (6.2-12.0); Monocyte# 0.76 X10^3/uL; NRBC Flagged by Analyzer 0 % (0-5); Neutrophil # 9.13 X10^3/uL (2.7-7.7); Neutrophil % 84.5 % (47-70); Platelet Count 406 K/mm3 (150-450); RBC Distribution Width CV 14.6 % (11.6-14.6); RBC Distribution Width SD 46.6 fl (35.1-43.9); Red Blood Count 3.16 M/mm3 (4.6-6.2); White Blood Count 10.8 K/mm3 (4.4-11.0)
[2020-10-04 17:57] LABS: Anion Gap 9 (5-15); BUN 40 mg/dL (7-18); BUN/Creat Ratio 14.3 RATIO (10-20); Calcium,Total 9.2 mg/dL (8.5-10.1); Chloride 100 mmol/L (98-107); Creatinine, Serum 2.79 mg/dL (0.70-1.30); EST Glomerular Filtration Rate 23 mL/min (>60); Est Glom Filt Rate - Afr Amer 28 mL/min (>60); Glucose 292 mg/dL (74-106); Potassium 4.7 mmol/L (3.5-5.1); Sodium Level 131 mmol/L (136-145)
== END ==
PROVIDERS: PCP Family Medicine; Referring Provider Family Medicine; Visit Provider Family Medicine
DX: D64.9 Anemia, unspecified (principal); N18.9 Chronic kidney disease, unspecified
CPT/HCPCS: 36415; 80048; 85025

== ENCOUNTER → 2020-11-25 16:50 | Outpatient (CLI) | payer MEDICARE, SELFPAY ==
[2020-11-25 18:31] LABS: Anion Gap 8 (5-15); BUN 30 mg/dL (7-18); BUN/Creat Ratio 12.5 RATIO (10-20); Calcium,Total 9.1 mg/dL (8.5-10.1); Chloride 104 mmol/L (98-107); Cholesterol 106 mg/dL (200); EST Glomerular Filtration Rate 28 mL/min (>60); Est Glom Filt Rate - Afr Amer 34 mL/min (>60); Glucose 153 mg/dL (74-106); High Density Lipoprotein 53 mg/dL; Potassium 3.7 mmol/L (3.5-5.1); Sodium Level 137 mmol/L (136-145); Triglycerides 128 mg/dL; Very Low Density Lipoprotein 26 mg/dL (5-40)
== END ==
PROVIDERS: PCP Family Medicine; Referring Provider Family Medicine; Visit Provider Family Medicine
DX: I10 Essential (primary) hypertension (principal); E78.5 Hyperlipidemia, unspecified
CPT/HCPCS: 36415; 80048; 80061

== ENCOUNTER → 2020-12-17 16:43 | Outpatient (CLI) | payer MEDICARE, SELFPAY | PROVIDERS: PCP Family Medicine; Visit Provider Urology | DX: N31.2 Flaccid neuropathic bladder, not elsewhere classified (principal); N39.0 Urinary tract infection, site not specified | CPT/HCPCS: 87077; 87086; 87088; 87186 ==

== ENCOUNTER → 2020-12-19 15:22 | Outpatient (CLI) | payer MEDICARE, SELFPAY ==
[2020-12-19 17:28] LABS: Hematocrit 29.9 % (40-54); Hemoglobin 9.4 g/dL (13.0-16.5); Mean Corp Hgb Conc 31.4 g/dL (32-36); Mean Corpuscular Hgb 27.7 pg (27.0-32.0); Mean Corpuscular Volume 88.2 fL (80-94); Mean Platelet Vol. 8.7 fl (6.2-12.0); Platelet Count 232 K/mm3 (150-450); RBC Distribution Width CV 14.2 % (11.6-14.6); RBC Distribution Width SD 45.4 fl (35.1-43.9); Red Blood Count 3.39 M/mm3 (4.6-6.2)
[2020-12-19 17:48] LABS: Anion Gap 8 (5-15); BUN 29 mg/dL (7-18); BUN/Creat Ratio 13.1 RATIO (10-20); Chloride 102 mmol/L (98-107); Creatinine, Serum 2.21 mg/dL (0.70-1.30); EST Glomerular Filtration Rate 31 mL/min (>60); Est Glom Filt Rate - Afr Amer 37 mL/min (>60); Glucose 311 mg/dL (74-106); Potassium 3.8 mmol/L (3.5-5.1); Sodium Level 136 mmol/L (136-145)
== END ==
PROVIDERS: PCP Family Medicine; Referring Provider Urology; Visit Provider Urology
DX: D64.9 Anemia, unspecified (principal); E11.9 Type 2 diabetes mellitus without complications; C61 Malignant neoplasm of prostate
CPT/HCPCS: 36415; 80048; 85027

== ENCOUNTER 2021-01-01 09:55 | Day surgery (SDC) | payer MEDICARE, SELFPAY ==
[2021-01-01] VITALS (7 sets, daily range): BP systolic 125–139; BP diastolic 59–68; PULSE 100–125; RESP 16; TEMP 36.1–36.7; O2SAT 97–99; BMI 22.8
--- NOTE | 2021-01-01 10:30 | EKG12_ITS ---
Test Reason : PREOP Blood Pressure : / mmHG Vent. Rate : 117 BPM Atrial Rate : 117 BPM P-R Int : 164 ms QRS Dur : 086 ms QT Int : 334 ms P-R-T Axes : 054 -18 032 degrees QTc Int : 465 ms Sinus tachycardia Otherwise normal ECG When compared with ECG of 18-SEP-2020 13:40, No significant change was found Confirmed by KERVIN MICHELLE, SHEILA ([id number]), managing editor TIM BOSE ([id number]) on 01/07/2021 11:19:32 AM Referred By: Tal Hill Confirmed By:SHEILA GALEANA MD
[2021-01-01] MEDS: Lactated Ringers 1,000 ML 15 ML IV (10:39)
[2021-01-01] MEDS: Cefazolin 2 GM in 0.9% Normal Saline 100 ML IV (11:18)
--- NOTE | 2021-01-01 11:28 | PCM.HP.STD ---
HPI - General HPI Narrative ALEA SALGADO, is a 80 M who presents for bilateral stent change. PFSH Medical History (Updated 12/25/20 @ 11:22 by Justa Noriega) Anemia Anemia due to chronic kidney disease Arthritis Back pain Cancer Cancer of prostate Cancer of rectum Chronic kidney disease Chronic kidney disease, stage 3b Current use of insulin Depression Diabetes Diarrhea Dietary restriction Former smoker H/O fungal disease Hearing loss, left Hearing loss, right High cholesterol History of edema History of immunosuppression therapy History of pain when walking Hypertension Insulin dependent diabetes mellitus Kidney disease Osteoporosis Restless legs Self-catheterizes urinary bladder Tendonitis of ankle Walker as ambulation aid Wears dentures Wears glasses Wears hearing aid in both ears Home Medications cholecalciferol (vitamin D3) 1,000 unit PO DAILY 12/08/19 [History Last Taken 09/18/20] loperamide 2 mg PO BID 12/08/19 [History Last Taken 01/01/21 09:00] hydralazine 50 mg PO BID #60 tablet 05/07/20 [Rx Last Taken 01/01/21 09:00] tamsulosin 0.4 mg PO DAILY #30 cap 05/07/20 [Rx Last Taken 09/18/20] acetaminophen [Tylenol Extra Strength] 1,000 mg PO BID 09/18/20 [History Last Taken 09/18/20] hydrocodone-acetaminophen 1 tab PO Q6H PRN PRN 3 Days #12 tablet 10/01/20 [Rx Last Taken Unknown] Lantus Solostar U-100 Insulin 10 unit SUBCUT DAILY 12/25/20 [History Last Taken Unknown] ciprofloxacin HCl 500 mg PO BID 12/25/20 [History Last Taken Unknown] ferrous sulfate [Iron (ferrous sulfate)] 325 mg PO BID 12/25/20 [History Last Taken Unknown] ciprofloxacin HCl [Cipro] 500 mg PO BID #6 tab 01/01/21 [Rx Last Taken Unknown] Allergy/AdvReac Type Severity Reaction Status Date / Time No Known Allergies Allergy Verified 01/01/21 10:25 Family History Mother Diabetes Father CVA (cerebral vascular accident) Sister Heart disease Brother Heart disease Surgical History (Updated 12/25/20 @ 11:22 by Justa Noriega) H/O partial resection of colon History of renal stent Hx of cystoscopy Hx of transurethral resection of prostate Social History Smoking Status: Former smoker alcohol intake: never substance use type: does not use Vital Signs Vital Signs Vital Signs: 01/01/21 10:25 Temperature 97.3 F L Temperature Source Temporal Pulse Rate 125 H Respiratory Rate 16 Respiratory Pattern Normal Blood Pressure 136/59 H Blood Pressure Mean 84 Blood Pressure Source Monitor Blood Pressure Position Semi-Fowlers Blood Pressure Location Left Arm Pulse Ox 99 Oxygen Delivery Method Room Air Weight Weight: 68 kg Body Mass Index (BMI) 22.8
--- NOTE | 2021-01-01 11:28 | PCM.DC ---
Discharge Instructions Diet Discharge Diet: No restrictions Activity Discharge Activity: Return to Normal Activity and May Not Drive (while taking narcotic pain medications.) Dressing / Incision Call your doctor if you observe: Fever of 101 or Higher Follow Up Care Please Follow Up With: Tal Hill MD When: Call [phone] for an appointment Test Results: Test results from this visit will be discussed in further detail at your follow-up appointment, if applicable. Discharge Plan Admission Primary Reason for Your Visit: stent change Attending Provider: Tal Hill Primary Care Provider: Srinivas Thayer Discharge Orders/Prescriptions Prescriptions: New ciprofloxacin HCl [Cipro] 500 mg tablet 500 mg PO BID Qty: 6 RF: 0 Continued loperamide 2 MG capsule 2 mg PO BID RF: 0 cholecalciferol (vitamin D3) 1,000 UNIT tablet 1,000 unit PO DAILY RF: 0 tamsulosin 0.4 MG capsule 0.4 mg PO DAILY Qty: 30 RF: 0 hydralazine 50 MG tablet 50 mg PO BID Qty: 60 RF: 0 acetaminophen [Tylenol Extra Strength] 500 mg Tablet 1,000 mg PO BID RF: 0 hydrocodone-acetaminophen 5-325 mg tablet 1 tab PO Q6H PRN PRN (Reason: Pain) 3 Days Qty: 12 RF: 0 ciprofloxacin HCl 500 mg Tablet 500 mg PO BID RF: 0 Lantus Solostar U-100 Insulin 100 unit/mL (3 mL) Insulin Pen 10 unit SUBCUT DAILY RF: 0 ferrous sulfate [Iron (ferrous sulfate)] 325 mg (65 mg iron) Tablet 325 mg PO BID RF: 0 Referrals / Follow Up: Srinivas Thayer MD [Primary Care Provider] - Disposition Disposition (needs filled in before D/C Order can be placed): Home, Self Care
--- NOTE | 2021-01-01 11:43 | OP.PCM_ITS ---
Report of Operation Date of Procedure: 01/01/21 Pre-Operative Diagnosis: Bilateral ureteral obstruction history of prostate ca ncer treated with radiation which caused significant scarring of the prostate and the both ureters Post-Operative Diagnosis: Same Surgery/Procedure Performed:: Cystoscopy dilation of urethral stricture and bilateral stent changes Description of Surgical Findings:: An 80-year-old gentleman who has a history of prostate cancer treated by radiation therapy long time ago because significant scarring in the prostate at that really dense scar down prostate also cause scarring in both the ureters at this point he has been self catheterizing that he has bladder keep the scar tissue open and wear using stents to keep that both the kidneys open to prevent renal failure. Today comes in for routine change of his stent since the stent is again old and getting encrusted and not working anymore. Patient was taken back to the operating room after induction of general anesthesia he was placed in dorsolithotomy position. The penis and testicles were prepped and draped in usual sterile fashion I went into the penis with a 21 Armenian rigid cystourethroscope the entire length the urethra was normal when I got to the sphincter this was extremely tight but could see through an extremely tight to the prostate was very hard dense stricture but is able to dilate with the scope I then went into the bladder I grabbed the existing right ureteral stent pulled out the meatus put a wire up to the stent and then over the wire I backloaded the scope and backloaded the stent and then put a stent up into the right kidney. I then went to the left side grabbed the existing stent pulled out the meatus put a wire through the stent and backloaded over the wire with the scope and then advance the stent on the left side and put a stent up in the left side. Once both stents were placed to drain the bladder cystoscope was removed no catheter was placed and patient was taken back to PACU in good condition. Surgeon: riley Type of Anesthesia: General Drains: bilateral stents Admit VTE Documentation VTE Present on Admission: No VTE Mechan Device Prophylaxis: SCD's VTE Pharm Prophylaxis ordered?: No
[2021-01-01 12:10] LABS: Bedside Glucose 131 mg/dL (70-110)
[2021-01-01 14:21] LABS: Bedside Glucose 167 mg/dL (70-110)
== END 2021-01-01 13:57 | disposition home or self-care (01) ==
LOC: SDC 09:56 → AC 09:56
PROVIDERS: PCP Family Medicine; Referring Provider Urology; Visit Provider Urology
PROC: (CPT 52332; principal; 2021-01-01 11:55)
DX: E11.22 Type 2 diabetes mellitus with diabetic chronic kidney disease (principal); I12.9 Hypertensive chronic kidney disease with stage 1 through stage 4 chronic kidney disease, or unspecified chronic kidney disease; D63.1 Anemia in chronic kidney disease; N18.32 Chronic kidney disease, stage 3b; H91.93 Unspecified hearing loss, bilateral; G25.81 Restless legs syndrome; E78.00 Pure hypercholesterolemia, unspecified; N13.5 Crossing vessel and stricture of ureter without hydronephrosis; M19.90 Unspecified osteoarthritis, unspecified site; Z79.899 Other long term (current) drug therapy; Z87.891 Personal history of nicotine dependence; Z79.4 Long term (current) use of insulin; Z85.46 Personal history of malignant neoplasm of prostate; Z92.3 Personal history of irradiation
CPT/HCPCS: 00910; 52281; 52332; 76000; 82962; 93005; J7120; C1769; C2617

== ENCOUNTER → 2021-01-20 15:10 | Outpatient (CLI) | payer MEDICARE, SELFPAY ==
[2021-01-20 18:22] LABS: Anion Gap 10 (5-15); BUN 29 mg/dL (7-18); BUN/Creat Ratio 13.2 RATIO (10-20); Calcium,Total 9.2 mg/dL (8.5-10.1); Chloride 104 mmol/L (98-107); EST Glomerular Filtration Rate 31 mL/min (>60); Est Glom Filt Rate - Afr Amer 37 mL/min (>60); Glucose 166 mg/dL (74-106); Potassium 3.8 mmol/L (3.5-5.1); Sodium Level 137 mmol/L (136-145)
== END ==
PROVIDERS: PCP Family Medicine; Visit Provider Nurse Practitioner Adult Health
DX: N18.4 Chronic kidney disease, stage 4 (severe) (principal)
CPT/HCPCS: 36415; 80048

== ENCOUNTER → 2021-01-21 13:32 | Outpatient (CLI) | payer MEDICARE, SELFPAY ==
[2021-01-21 15:19] LABS: Protein, Urine (Random) 131.6 mg/dL (<11.9); Protein:Creat Ratio 1973 mg/g CRE (0-200)
== END ==
PROVIDERS: PCP Family Medicine; Referring Provider Family Medicine; Visit Provider Nurse Practitioner Adult Health
DX: N18.4 Chronic kidney disease, stage 4 (severe) (principal)
CPT/HCPCS: 82570; 84156

== ENCOUNTER 2021-02-17 11:19 | Emergency (ER) | payer MEDICARE, SELFPAY ==
[2021-02-17 11:19] VITALS: BP 107/58; PULSE 109; RESP 18; TEMP 36.6; O2SAT 97; BMI 21.2
[2021-02-17 12:20] LABS: Mucous, Urine 0 SEEN /hpf (<or=2+)
[2021-02-17 12:23] LABS: Color, Urine Yellow (Yellow); Glucose, Dipstick Normal (Normal); Ketone-Dipstick Negative (Negative); Leukocyte Esterase-Dipstick 500 /ul (Negative); Nitrite-Dipstick Negative (Negative); Occult Blood-Urine 250 /ul (Negative); Protein-Dipstick 100 mg/dl (Negative); Urine Bilirubin Dipstick Negative (Negative); Urine Clarity Cloudy (Clear); Urine Urobilinogen Normal (Normal); Urine pH 6.5 (5.0 - 8.0)
[2021-02-17 12:30] LABS: Bacteria 1+ /hpf (None Seen); Red Blood Cells-Urine 25-50 SEEN /hpf (0-5); Squamous Epithelial Cells - UA 0-5 SEEN /hpf (0-5); White Blood Cells 25-50 SEEN /hpf (0-5)
--- NOTE | 2021-02-17 12:32 | EX.ED.DYSGE1 ---
HPI History of Present Illness Chief Complaint: Complaint Informant: patient and spouse/S.O. Narrative Narrative: 80-year-old male presents to the emergency room out of concerns for urinary retention/incontinence he tells me that he has a history of colorectal cancer and has had scar tissue from radiation. Because of this he has a stent going to his left kidney which in about 2 weeks will be changed to a larger stent. He states that typically he self caths but that the past couple times he has tried to self cath nothing is there. States he is started to have incontinence when he coughs and during the night his bladder feels full but he does know where it goes. states he is wearing a diaper now and that is very saturated with urine in the mornings. They state that since self cathing his amount of UTIs have decreased. He follows locally with Dr. Hill. [facility] Medical History Anemia Anemia due to chronic kidney disease Arthritis Back pain Cancer Cancer of prostate Cancer of rectum Chronic kidney disease Chronic kidney disease, stage 3b Current use of insulin Depression Diabetes Diarrhea Dietary restriction Former smoker H/O fungal disease Hearing loss, left Hearing loss, right High cholesterol History of edema History of immunosuppression therapy History of pain when walking Hypertension Insulin dependent diabetes mellitus Kidney disease Osteoporosis Restless legs Self-catheterizes urinary bladder Tendonitis of ankle Walker as ambulation aid Wears dentures Wears glasses Wears hearing aid in both ears Home Medications cholecalciferol (vitamin D3) 1,000 unit PO DAILY 12/08/19 [History Last Taken 09/18/20] loperamide 2 mg PO BID 12/08/19 [History Last Taken 01/01/21 09:00] hydralazine 50 mg PO BID #60 tablet 05/07/20 [Rx Last Taken 01/01/21 09:00] tamsulosin 0.4 mg PO DAILY #30 cap 05/07/20 [Rx Last Taken 09/18/20] acetaminophen [Tylenol Extra Strength] 1,000 mg PO BID 09/18/20 [History Last Taken 09/18/20] hydrocodone-acetaminophen 1 tab PO Q6H PRN PRN 3 Days #12 tablet 10/01/20 [Rx Last Taken Unknown] Lantus Solostar U-100 Insulin 10 unit SUBCUT DAILY 12/25/20 [History Last Taken Unknown] ciprofloxacin HCl 500 mg PO BID 12/25/20 [History Last Taken Unknown] ferrous sulfate [Iron (ferrous sulfate)] 325 mg PO BID 12/25/20 [History Last Taken Unknown] ciprofloxacin HCl [Cipro] 500 mg PO BID #6 tab 01/01/21 [Rx Last Taken Unknown] Allergy/AdvReac Type Severity Reaction Status Date / Time No Known Allergies Allergy Verified 02/17/21 11:21 Family History Mother Diabetes Father CVA (cerebral vascular accident) Sister Heart disease Brother Heart disease Surgical History H/O partial resection of colon History of renal stent Hx of cystoscopy Hx of transurethral resection of prostate Social History Smoking Status: Former smoker alcohol intake: never substance use type: does not use ROS ROS ED Constitutional Constitutional ED: Denies chills, fever(s) or weight loss Eyes Eyes: Denies change in vision or diplopia ENT ENT ED: Denies ear pain, rhinorrhea or sore throat Cardiovascular Cardiovascular: Denies chest pain, orthopnea, palpitations or racing heartbeat Respiratory/Chest Respiratory/Chest: Denies cough, dyspnea or orthopnea Gastrointestinal Gastrointestinal: Denies abdominal pain, diarrhea, nausea or vomiting Genitourinary Genitourinary ED: Reports other Details: See history of present illness ; Denies dysuria, hematuria or urinary frequency Musculoskeletal Musculoskeletal: Denies arthralgias or myalgias Integumentary Denies abscess or rash Neurologic Neurologic: Denies headache(s) or weakness Psychiatric Psychiatric: Denies anxiety, depression, suicidal ideation or suicidal thoughts Endocrine Endocrinology: Denies polydipsia, polyphagia or polyuria Allergic/Immunologic Allergic/Immunologic ED: Denies mouth swelling, tongue swelling or urticaria EXAM Physical Exam Const Vital Signs: 02/17/21 11:19 Temperature 97.9 F Temperature Source Temporal Pulse Rate 109 H Respiratory Rate 18 Blood Pressure 107/58 L Blood Pressure Mean 74 Pulse Ox 97 Oxygen Delivery Method Room Air Positive well nourished and well developed General Appearance ED: well developed HEENT Reports normocephalic, head/scalp atraumatic, TM's clear and moist mucous membranes Negative for trauma Tympanic Membrane ED: Yes TM's clear Eyes PERRL and EOMs intact bilaterally Neck no lymphadenopathy, supple and no JVD Resp normal respiratory effort and clear to auscultation bilaterally Cardio regular rate, regular rhythm and no murmurs GI normal to inspection, nondistended, normoactive bowel sounds and non-tender Palpation: soft Back/Spine no CVA tenderness and normal ROM Extremity normal to inspection General Extremety ED: Negative for edema General Extremity: Negative for edema Neuro oriented x3 and CN's II-XII intact bilaterally Sensorium / Orientation: alert Motor Exam: strength 5/5 throughout Psych mental status grossly normal Mood & Affect: Negative for depressed or tearful Skin no rashes or lesions noted and no wounds MDM MDM MDM Narrative Medical decision making narrative: Bedside ultrasound shows the bladder to be decompressed. His adult diaper is saturated with urine. Spoke with patient offered a catheter so he does not have to deal with the diapers which he would prefer so that he does not end up with urinary retention. A formal urinalysis was sent demonstrates 25-50 red cells 25-50 white cells 1+ bacteria. This will be sent for culture. Lab Data Labs: Laboratory Results - last 24 hr 02/17/21 12:15 Urine Color Yellow Urine Clarity Cloudy Urine pH 6.5 Ur Specific [place] 1.010 Urine Protein 100 H Urine Glucose (UA) Normal Urine Ketones Negative Urine Occult Blood 250 H Urine Nitrite Negative Urine Bilirubin Negative Urine Urobilinogen Normal Ur Leukocyte Esterase 500 H Urine RBC 25-50 SEEN Urine WBC 25-50 SEEN Ur Squamous Epith Cells 0-5 SEEN Urine Bacteria 1+ Urine Mucus 0 SEEN Discharge Plan Triage Chief Complaint: Complaint ED Provider: Anish Fair Dx/Rx/DC Orders Clinical Impression: Acute UTI, Urinary incontinence Prescriptions: No Action loperamide 2 MG capsule 2 mg PO BID RF: 0 cholecalciferol (vitamin D3) 1,000 UNIT tablet 1,000 unit PO DAILY RF: 0 tamsulosin 0.4 MG capsule 0.4 mg PO DAILY Qty: 30 RF: 0 hydralazine 50 MG tablet 50 mg PO BID Qty: 60 RF: 0 acetaminophen [Tylenol Extra Strength] 500 mg Tablet 1,000 mg PO BID RF: 0 hydrocodone-acetaminophen 5-325 mg tablet 1 tab PO Q6H PRN PRN (Reason: Pain) 3 Days Qty: 12 RF: 0 ciprofloxacin HCl 500 mg Tablet 500 mg PO BID RF: 0 Lantus Solostar U-100 Insulin 100 unit/mL (3 mL) Insulin Pen 10 unit SUBCUT DAILY RF: 0 ferrous sulfate [Iron (ferrous sulfate)] 325 mg (65 mg iron) Tablet 325 mg PO BID RF: 0 ciprofloxacin HCl [Cipro] 500 mg tablet 500 mg PO BID Qty: 6 RF: 0 Primary Care Provider: Srinivas Thayer Referrals: Srinivas Thayer MD [Primary Care Provider] - Tal Hill MD [STAFF PHYSICIAN] - [facility] appointment Disposition Disposition: Home, Self Care
== END 2021-02-17 13:12 | disposition home or self-care (01) ==
PROVIDERS: Emergency Provider Emergency Medicine; PCP Family Medicine
DX: N39.0 Urinary tract infection, site not specified (principal); R32 Unspecified urinary incontinence; Z87.891 Personal history of nicotine dependence
CPT/HCPCS: 51702; 81001; 87077; 87086; 87088; 87186; 99283

== ENCOUNTER 2021-03-03 15:14 | Outpatient (CLI) | payer MEDICARE, SELFPAY ==
[2021-03-03 17:50] LABS: Absolute Lymphocyte Count 0.44 X10^3/uL (0.83-4.51); Absolute Neutrophil Count 11.5 X10^3/uL (2.0-7.7); Basophil# 0.03 X10^3/uL; Basophil% 0.2 % (0-1); Eosinophil# 0.06 X10^3/uL; Eosinophils% 0.5 % (0-5); Hematocrit 29.3 % (40-54); Hemoglobin 8.8 g/dL (13.0-16.5); Lymphocyte # 0.44 X10^3/ul (0.83-4.51); Lymphocyte % 3.4 % (19-41); Mean Corpuscular Volume 86.7 fL (80-94); Monocyte# 0.79 X10^3/uL; Monocyte% 6.1 % (0-10); NRBC Flagged by Analyzer 0 % (0-5); Neutrophil # 11.53 X10^3/uL (2.7-7.7); Neutrophil % 88.8 % (47-70); POSITIVE DIFFERENTIAL YES; Platelet Count 353 K/mm3 (150-450); RBC Distribution Width CV 15.8 % (11.6-14.6); RBC Distribution Width SD 50.1 fl (35.1-43.9); Red Blood Count 3.38 M/mm3 (4.6-6.2)
[2021-03-03 17:54] LABS: Differential Indicated SCAN CRITERIA MET
[2021-03-03 18:20] LABS: Anion Gap 17 (5-15); BUN 120 mg/dL (7-18); BUN/Creat Ratio 11.4 RATIO (10-20); Calcium,Total 9.6 mg/dL (8.5-10.1); Chloride 103 mmol/L (98-107); EST Glomerular Filtration Rate 5 mL/min (>60); Est Glom Filt Rate - Afr Amer 6 mL/min (>60); Glucose 164 mg/dL (74-106); Potassium 5.6 mmol/L (3.5-5.1); Sodium Level 133 mmol/L (136-145)
[2021-03-03 18:22] LABS: Differential Comment SCANNED
== END 2021-03-03 23:59 | disposition short-term general hospital (02) ==
LOC: MFPLAB 15:15
PROVIDERS: PCP Family Medicine; Visit Provider Family Medicine
DX: R63.0 Anorexia (principal)
CPT/HCPCS: 36415; 80048; 85025

== ENCOUNTER 2021-03-04 18:17 | Inpatient (IN) | payer MEDICARE, SELFPAY ==
[2021-03-04] VITALS (9 sets, daily range): BP systolic 135–148; BP diastolic 59–78; PULSE 112–123; RESP 14–18; TEMP 36.6–36.7; O2SAT 97–100; BMI 20.1; BMI 20.7
--- NOTE | 2021-03-04 18:41 | CT_ITS ---
STUDY: CT ABDOMEN AND PELVIS WITHOUT CONTRAST REASON FOR EXAM: Male, 80 years old. Renal failure. Abdominal pain. RADIATION DOSAGE (If Supplied By Facility): CTDIvol = ( 6.19 ) mGy, DLP = ( 321.65 ) mGycm TECHNIQUE: Transaxial images were obtained from the dome of the diaphragm to the symphysis pubis without oral contrast, and without intravenous contrast. Sagittal and coronal images were reconstructed. Individualized dose optimization techniques were used for this CT. COMPARISON: 10/01/2020. FINDINGS: The visualized lung bases are unremarkable. The visualized portions of the heart are within normal limits. Normal liver. There are gallstones in the gallbladder fundus without wall thickening or inflammatory change. There is no biliary ductal dilatation or choledocholithiasis. Normal spleen. Normal pancreas. There is a small, circumscribed, smooth, low attenuation left adrenal mass, consistent with an adrenal adenoma. Normal right adrenal gland. Right kidney is atrophic with cortical thinning. There is no renal calculi or hydronephrosis. There is ureteral stent extending from the renal pelvis into the urinary bladder. Normal size left kidney. There is no mass or renal calculi. There is hydronephrosis. There is a ureteral stent extending from an upper pole calyx downward into the urinary bladder. Normal visualized stomach. Normal small intestine. Normal colon. The appendix is visualized and appears normal. There is diffuse atherosclerotic calcification of the abdominal aorta, without a demonstrated aneurysm. Normal inferior vena cava. Mild thickening of the prevertebral soft tissues over the lower lumbar spine this extends downward into the presacral soft tissues were mammogram microcalcifications. The thick walled urinary bladder is collapsed about a MEJIA catheter. The prostate is not clearly identified. There is no pelvic lymphadenopathy. Normal abdominal wall. Degenerative changes of the lumbar spine. There is marked sclerotic changes of the L4 and L5 vertebral bodies and sacrum. These findings remain visible bony structures are grossly normal. Suggest metastatic disease versus radiation damage. Correlate with patient''s clinical history. CT/Abdomen/Pelvis without Cont IMPRESSION: 1. Interval resolution of the small pleural effusion seen on the earlier study. 2. No other major interval change when compared to prior study. Electronically Signed: Дмитрий Grace DO at 19:33 EST Tel [phone], Service support ,
--- NOTE | 2021-03-04 18:42 | EKG12_ITS ---
Test Reason : DYSRHYTHMIA Blood Pressure : / mmHG Vent. Rate : 116 BPM Atrial Rate : 116 BPM P-R Int : 164 ms QRS Dur : 080 ms QT Int : 328 ms P-R-T Axes : 043 -10 018 degrees QTc Int : 455 ms Sinus tachycardia Nonspecific ST and T wave abnormality Confirmed by TWYLA MICHELLE, SOCRATES ([id number]), editor department TIM BOSE ([id number]) on 03/05/2021 1:41:34 PM Referred By: MEENU Confirmed By:SOCRATES WAKEFIELD MD
--- NOTE | 2021-03-04 18:43 | EX.ED.DYSGE1 ---
HPI History of Present Illness Chief Complaint: Abn Labs Detail of Chief Complaint: Concern for acute renal failure with abnormal BUN and creatinine Informant: patient and PCP Narrative Narrative: To the emergency department with concern that he may be in acute renal failure. Patient's creatinine normally runs around 2 and patient saw his primary care physician yesterday who ordered blood work and noted that his creatinine was over 10. Patient was advised to come to the emergency department. Patient denies any chest pain or shortness of breath. He does describe fatigue. Patient does have a Judd catheter in place and states that the urine turned bloody today. Patient currently on Bactrim and prior to this round of Bactrim he was on ciprofloxacin. Patient currently has stents in both ureters. His urologist is and he has history of prostate cancer. Patient denies any fever or recent illness otherwise. [facility] Medical History (Updated 03/04/21 @ 20:[address] Bonnie Lewis, ) Anemia Anemia due to chronic kidney disease Arthritis Back pain Cancer Cancer of prostate Cancer of rectum Chronic kidney disease Chronic kidney disease, stage 3b Depression Diabetes Diarrhea Dietary restriction Former smoker H/O fungal disease Hearing loss, left Hearing loss, right High cholesterol History of echocardiogram History of edema History of immunosuppression therapy History of pain when walking Hx of transesophageal echocardiography (SHANNAN) for monitoring Hypertension Insulin dependent diabetes mellitus Kidney disease Osteoporosis Restless legs Self-catheterizes urinary bladder Tendonitis of ankle Walker as ambulation aid Wears dentures Wears glasses Wears hearing aid in both ears Home Medications cholecalciferol (vitamin D3) 1,000 unit PO DAILY 12/08/19 [History Last Taken 09/18/20] loperamide 2 mg PO BID 12/08/19 [History Last Taken 01/01/21 09:00] hydralazine 50 mg PO BID #60 tablet 05/07/20 [Rx Last Taken 01/01/21 09:00] tamsulosin 0.4 mg PO DAILY #30 cap 05/07/20 [Rx Last Taken 09/18/20] acetaminophen [Tylenol Extra Strength] 1,000 mg PO BID 09/18/20 [History Last Taken 09/18/20] Lantus Solostar U-100 Insulin 10 unit SUBCUT DAILY 12/25/20 [History Last Taken Unknown] cephalexin 500 mg PO BID 02/26/21 [History Last Taken Unknown] mirtazapine 15 mg PO QHS 03/04/21 [History Last Taken Unknown] sulfamethoxazole-trimethoprim 1 tab PO BID 03/04/21 [History Last Taken Unknown] Allergy/AdvReac Type Severity Reaction Status Date / Time No Known Allergies Allergy Verified 02/26/21 10:07 Family History Mother Diabetes Father CVA (cerebral vascular accident) Sister Heart disease Brother Heart disease Surgical History H/O partial resection of colon History of renal stent Hx of cystoscopy Hx of cystoscopy Hx of transurethral resection of prostate Social History Smoking Status: Former smoker alcohol intake: never substance use type: does not use ROS ROS ED Constitutional Constitutional ED: Reports systems reviewed and no addt'l complaints, except as documented; Denies body ache(s), change in weight or chills Eyes Eyes: Denies acute decrease in peripheral vision, change in vision, double vision or loss of vision ENT ENT ED: Reports none; Denies ear pain, lip swelling, loss taste/smell, neck pain, otalgia or sore throat Cardiovascular Cardiovascular: Reports none; Denies abdominal pain, chest pain with activity, leg edema, lightheadedness, palpitations, rapid heart rate or syncope Respiratory/Chest Respiratory/Chest: Reports none; Denies change in mental status, dry cough, dyspnea, hemoptysis, shortness of breath at rest or shortness of breath with exertion Gastrointestinal Gastrointestinal: Reports none; Denies abdominal pain, change in stool character, diarrhea, hematemesis, hematochezia, melena, rectal bleeding or vomiting Genitourinary Genitourinary ED: Reports none and hematuria; Denies abdominal discomfort, anuria, dysuria, genital pain or polyuria Musculoskeletal Musculoskeletal: Reports none; Denies arthralgias, back pain, difficulty walking, extremity pain, muscle weakness or myalgias Integumentary Reports none; Denies abscess or rash Neurologic Neurologic: Reports none and weakness; Denies abnormal gait, confusion, focal weakness, frequent falls, headache(s), loss of vision, numbness, paresthesias, radicular pain or vertigo Psychiatric Psychiatric: Reports systems reviewed and no addt'l complaints, except as documented and none; Denies behavioral changes, confusion, difficulty concentrating, hallucinations, suicidal ideation, tactile hallucinations or visual hallucinations Endocrine Endocrinology: Denies none, cold intolerance, excessive sweating, fatigue or heat intolerance Hematologic/Lymphatic Hematologic/Lymphatic: Reports none; Denies anemia, easy bleeding or easy bruising Allergic/Immunologic Allergic/Immunologic ED: Denies as per HPI, none, lip swelling, mouth swelling, throat swelling, tongue swelling or hives EXAM Physical Exam Const Vital Signs: 03/04/21 18:18 03/04/21 18:28 Temperature 97.8 F Temperature Source Temporal Pulse Rate 120 H Respiratory Rate 17 Respiratory Pattern Normal Blood Pressure 135/63 H Blood Pressure Mean 87 Pulse Ox 100 Oxygen Delivery Method Room Air Positive well nourished and well developed General Appearance ED: well developed and NAD HEENT Reports TM's clear and moist mucous membranes normocephalic and atraumatic; Negative for trauma or tenderness Tympanic Membrane ED: Yes TM's clear Eyes PERRL and EOMs intact bilaterally General Eye ED: Negative for pale conjunctiva or scleral icterus Neck no lymphadenopathy, supple and no JVD General: Negative for tenderness Chest Wall inspection of chest normal and palpation of chest normal Chest: Negative for tenderness Resp normal respiratory effort and clear to auscultation bilaterally Effort and Inspection: Negative for respiratory distress or pain with movement Auscultation: Negative for rhonchi, wheezes or diminished lung sounds Cardio regular rate, regular rhythm, S1 normal heart sound, S2 normal heart sound and no murmurs Peripheral Pulses: pulses 2+ throughout GI normal to inspection, nondistended, normoactive bowel sounds, soft to palpation, non-distended and no masses GI Narrative: Mild diffuse abdominal discomfort. No rebound, rigidity, or peritoneal signs. Back/Spine no CVA tenderness and no thoracic nor lumbar tenderness Extremity normal to inspection General Extremety ED: Negative for edema General Extremity: Negative for edema Neuro oriented x3, CN's II-XII intact bilaterally, no sensory deficits noted and gait normal Sensorium / Orientation: awake, alert, oriented to person, oriented to place and oriented to time Motor Exam: strength 5/5 throughout and strength abnormal Psych mental status grossly normal Skin no rashes or lesions noted and no wounds MDM MDM MDM Narrative Medical decision making narrative: IV line established on arrival. Patient noted to have acute renal failure. Case discussed with hospitalist will evaluate patient for admission. Patient did not have hyperkalemic changes on EKG. I did order Kayexalate 30 g p.o. Patient had a CT scan of the abdomen pelvis that was unchanged from prior. Lab Data Attestation: I reviewed the patient's lab results. Labs: Laboratory Results - last 24 hr 03/04/21 03/04/21 03/04/21 19:30 19:30 19:42 WBC 10.9 RBC 3.20 L Hgb 8.7 L Hct 27.2 L MCV 85.0 MCH 27.2 MCHC 32.0 D RDW Std Deviation 48.8 H RDW Coeff of Darian 15.6 H Plt Count 312 MPV 9.1 Immature Gran % (Auto) 0.700 Neut % (Auto) 87.0 H Lymph % (Auto) 5.2 L [place] % (Auto) 6.3 Eos % (Auto) 0.5 Baso % (Auto) 0.3 Absolute Neuts (auto) 9.5 H Absolute Lymphs (auto) 0.57 L Nucleated RBC % 0 Sodium 135 L Potassium 5.9 H Chloride 107 Carbon Dioxide 12.0 L Anion Gap 16 H BUN 132 H* Creatinine 11.00 H* Estim Creat Clear Calc 4.82 Est GFR (MDRD) Af Amer 6 L Est GFR (MDRD) Non-Af 5 L BUN/Creatinine Ratio 12.0 Glucose 107 H Calcium 9.4 Urine Color Red Urine Clarity Turbid Urine pH 6.5 Ur Specific [place] 1.015 Urine Protein 500 H Urine Glucose (UA) Normal Urine Ketones Negative Urine Occult Blood 250 H Urine Nitrite Negative Urine Bilirubin Negative Urine Urobilinogen Normal Ur Leukocyte Esterase 100 H Urine RBC > 100 SEEN Urine WBC 5-10 SEEN Ur Squamous Epith Cells 0 SEEN Urine Bacteria 0 SEEN Urine Mucus 0 SEEN Radiography Diagnostic Testing: Clinical Impression(s) from Imaging Studies Abdomen/Pelvis CT 03/04/21 18:41 IMPRESSION: 1. Interval resolution of the small pleural effusion seen on the earlier study. 2. No other major interval change when compared to prior study. Electronically Signed: Дмитрий Grace DO at 19:33 EST Tel [phone], Service support , EKG Initial EKG: Attestation: I personally reviewed and interpreted this EKG as follows: Comments: Sinus rhythm with a ventricular rate of 116 bpm with no acute ST segment changes Discharge Plan Triage Chief Complaint: Abn Labs ED Provider: Bonnie Lewis Dx/Rx/DC Orders Clinical Impression: Acute renal failure, Anemia, Acute hyperkalemia, Weakness Prescriptions: No Action loperamide 2 MG capsule 2 mg PO BID RF: 0 cholecalciferol (vitamin D3) 1,000 UNIT tablet 1,000 unit PO DAILY RF: 0 tamsulosin 0.4 MG capsule 0.4 mg PO DAILY Qty: 30 RF: 0 hydralazine 50 MG tablet 50 mg PO BID Qty: 60 RF: 0 acetaminophen [Tylenol Extra Strength] 500 mg Tablet 1,000 mg PO BID RF: 0 Lantus Solostar U-100 Insulin 100 unit/mL (3 mL) Insulin Pen 10 unit SUBCUT DAILY RF: 0 cephalexin 500 mg Capsule 500 mg PO BID RF: 0 sulfamethoxazole-trimethoprim 800-160 mg tablet 1 tab PO BID RF: 0 mirtazapine 15 mg tablet 15 mg PO QHS RF: 0 Primary Care Provider: Srinivas Thayer Referrals: Srinivas Thayer MD [Primary Care Provider] - Disposition Disposition: Acute Care Hospital [facility]
[2021-03-04] MEDS: 0.9% Normal Saline 1,000 ML 150 ML IV ×2 (19:40→23:45)
[2021-03-04 19:41] LABS: Absolute Lymphocyte Count 0.57 X10^3/uL (0.83-4.51); Absolute Neutrophil Count 9.5 X10^3/uL (2.0-7.7); Basophil# 0.03 X10^3/uL; Basophil% 0.3 % (0-1); Eosinophil# 0.06 X10^3/uL; Eosinophils% 0.5 % (0-5); Hematocrit 27.2 % (40-54); Hemoglobin 8.7 g/dL (13.0-16.5); Lymphocyte # 0.57 X10^3/ul (0.83-4.51); Lymphocyte % 5.2 % (19-41); Mean Corpuscular Hgb 27.2 pg (27.0-32.0); Mean Platelet Vol. 9.1 fl (6.2-12.0); Monocyte# 0.69 X10^3/uL; Monocyte% 6.3 % (0-10); NRBC Flagged by Analyzer 0 % (0-5); Neutrophil # 9.48 X10^3/uL (2.7-7.7); POSITIVE DIFFERENTIAL YES; Platelet Count 312 K/mm3 (150-450); RBC Distribution Width CV 15.6 % (11.6-14.6); RBC Distribution Width SD 48.8 fl (35.1-43.9); White Blood Count 10.9 K/mm3 (4.4-11.0)
[2021-03-04 19:46] LABS: Differential Indicated SCAN CRITERIA MET
[2021-03-04 19:49] LABS: Bacteria 0 SEEN /hpf (None Seen); Mucous, Urine 0 SEEN /hpf (<or=2+); Squamous Epithelial Cells - UA 0 SEEN /hpf (0-5)
[2021-03-04 19:51] LABS: Color, Urine Red (Yellow); Glucose, Dipstick Normal (Normal); Ketone-Dipstick Negative (Negative); Leukocyte Esterase-Dipstick 100 /ul (Negative); Nitrite-Dipstick Negative (Negative); Occult Blood-Urine 250 /ul (Negative); Protein-Dipstick 500 mg/dl (Negative); Specific Gravity, Urine 1.015 (1.002-1.030); Urine Bilirubin Dipstick Negative (Negative); Urine Clarity Turbid (Clear); Urine Urobilinogen Normal (Normal); Urine pH 6.5 (5.0 - 8.0)
[2021-03-04 19:57] LABS: Anion Gap 16 (5-15); BUN 132 mg/dL (7-18); Calcium,Total 9.4 mg/dL (8.5-10.1); Chloride 107 mmol/L (98-107); EST Glomerular Filtration Rate 5 mL/min (>60); Est Glom Filt Rate - Afr Amer 6 mL/min (>60); Estimated Creatinine Clearance 4.82 ml/min; Glucose 107 mg/dL (74-106); Potassium 5.9 mmol/L (3.5-5.1); Sodium Level 135 mmol/L (136-145)
[2021-03-04 20:03] LABS: Red Blood Cells-Urine > 100 SEEN /hpf (0-5); White Blood Cells 5-10 SEEN /hpf (0-5)
[2021-03-04 20:08] LABS: Platelet Estimate ADEQUATE (ADEQ); Red Cell Morphology NORM C+C NORMAL (NORM C&C)
--- NOTE | 2021-03-04 20:25 | HP.PCM.HOS_ITS ---
HPI - General General Date of Admission: 03/04/21 Date of Service: 03/04/21 Chief Complaint: Fatigue, malaise, worsening renal function. HPI Narrative The patient is an 80 y/o M w/ PMHx: Chronic anemia/AOCD, HTN, HLD, RLS, Diabetes mellitus type II, Depression and Anxiety, Prostate CA following s/p TURP w/ Dr. Hill, Hx Colon and rectal cancer s/p resection in remission, recent 02/17/21 [facility] ED evaluation with urinary retention at that time with akers placement with UCx w/ Klesiella treated with course abx therapy with planned per discussion with patient/family 03/05/20 stent change to a larger ureteral stent as patient with significant radiation scarring with urethral strictures; however, patient has been more fatigued with malaise as well as poor appetite with onset on a.m. on day of presentation mild hematuria evident which not been occurring prior prompting PCP to obtain repeat renal function noted to be significantly altered with worsening renal function prompting ED referral. Patient and family deny any recent fevers, chills. Work-up in the ED included T97.3, heart rate 125, BP 136/59, respiratory rate 16, 99% on room air, CBC with WBC 10.9, hemoglobin 8.7, platelets 312 with left shift and lymphopenia, potassium 5.6 with repeat 5.9 however it is noted to be moderately hemolyzed, common oxide 12, AG 16, BUN/crea tinine 132/11, glucose 107, urinalysis with specific gravity 1.015, protein 500, occult blood 250, leukocytes esterase 100, urine RBC greater than 100 with no marked urine WBCs or bacteria, CT abdomen and pelvis with no acute intra- abdominal findings with no major interval changes compared to previous study. In the ED patient was administered Kayexalate 30 g x 1 per physician. [facility] Medical History (Updated 03/05/21 @ 02:[address] Suzanne Olsen MD) Anemia Anemia due to chronic kidney disease Arthritis Back pain Cancer Cancer of prostate Cancer of rectum Chronic kidney disease Chronic kidney disease, stage 3b Depression Diabetes Diarrhea Dietary restriction Former smoker H/O fungal disease Hearing loss, left Hearing loss, right High cholesterol History of echocardiogram History of edema History of immunosuppression therapy History of pain when walking Hx of transesophageal echocardiography (SHANNAN) for monitoring Hypertension Insulin dependent diabetes mellitus Kidney disease Osteoporosis Restless legs Self-catheterizes urinary bladder Tendonitis of ankle Walker as ambulation aid Wears dentures Wears glasses Wears hearing aid in both ears Home Medications cholecalciferol (vitamin D3) 1,000 unit PO DAILY 12/08/19 [History Last Taken 09/18/20] loperamide 2 mg PO BID 12/08/19 [History Last Taken 01/01/21 09:00] hydralazine 50 mg PO BID #60 tablet 05/07/20 [Rx Last Taken 01/01/21 09:00] tamsulosin 0.4 mg PO DAILY #30 cap 05/07/20 [Rx Last Taken 09/18/20] acetaminophen [Tylenol Extra Strength] 1,000 mg PO BID 09/18/20 [History Last Taken 09/18/20] Lantus Solostar U-100 Insulin 10 unit SUBCUT DAILY 12/25/20 [History Last Taken Unknown] cephalexin 500 mg PO BID 02/26/21 [History Last Taken Unknown] mirtazapine 15 mg PO QHS 03/04/21 [History Last Taken Unknown] sulfamethoxazole-trimethoprim 1 tab PO BID 03/04/21 [History Last Taken Unknown] Allergy/AdvReac Type Severity Reaction Status Date / Time No Known Allergies Allergy Verified 02/26/21 10:07 Family History Mother Diabetes Father CVA (cerebral vascular accident) Sister Heart disease Brother Heart disease Surgical History H/O partial resection of colon History of renal stent Hx of cystoscopy Hx of cystoscopy Hx of transurethral resection of prostate Social History (Updated 03/05/21 @ 02:[address] Suzanne Olsen MD) household members: spouse housing: house current occupational status: retired Smoking Status: Former smoker alcohol intake: never substance use type: does not use ROS ROS Narrative Admission Review of Systems: CONSTITUTIONAL: No weight loss, fever, chills, + weakness or fatigue. HEENT: Eyes: No visual loss, blurred vision, double vision or yellow sclerae. Ears, Nose, Throat: No hearing loss, sneezing, congestion, runny nose or sore throat. SKIN: No rash or itching, lesions, wounds. CARDIOVASCULAR: No chest pain, chest pressure or chest discomfort, palpitations, edema, orthopnea, syncopal events. RESPIRATORY: No shortness of breath, cough or sputum, wheezing, hemoptysis. GASTROINTESTINAL: + anorexia, No nausea, vomiting or diarrhea, abdominal pain, melena, BRBPR. GENITOURINARY: No dysuria, frequency, urgency or retention. NEUROLOGICAL: No headache, dizziness, syncope, paralysis, ataxia, numbness or tingling in the extremities, focal weakness, change in bowel or bladder control, seizure. MUSCULOSKELETAL: + muscle, back pain, joint pain or stiffness. HEMATOLOGIC: + anemia, bleeding or bruising. LYMPHATICS: No enlarged nodes. No history of splenectomy. PSYCHIATRIC: + history of depression or anxiety. ENDOCRINOLOGIC: No reports of sweating, cold or heat intolerance. No polyuria or polydipsia. ALLERGIES: No history of asthma, hives, eczema or rhinitis. Vital Signs Vital Signs Vital Signs: 03/04/21 18:18 03/04/21 18:28 Temperature 97.8 F Temperature Source Temporal Pulse Rate 120 H Respiratory Rate 17 Respiratory Pattern Normal Blood Pressure 135/63 H Blood Pressure Mean 87 Pulse Ox 100 Oxygen Delivery Method Room Air Weight Weight: 140 lb 3.424 oz Body Mass Index (BMI) 20.1 Physical Exam Narrative Physical Examination: General: Awake, alert, oriented x 3 and cooperative, seated upright in the ED bed, fatigued, no acute distress. Skin: Normal color, normal turgor, no icterus, no cyanosis. HEENT: AT/NC, EOMI, PERRLA, dry MM, no carotid bruits or JVD noted. Lungs: Diminished, greater bases, moderate effort, no rales, ronchi or wheezing. Heart: Tachycardic with regular rhythm; no gallop, rub audible. Abdomen: Soft, NTTP, ND, mildly distant hypoactive BS, no obvious evidence of HSM. Extremities: No cyanosis, clubbing, or edema. Neurological: Patient awake, alert, oriented as noted, cognitive function intact; pupils equally reactive to light and accommodation, cranial nerves II- XII grossly normal, moving all 4 extremities, no focal deficits, strength mildly to moderately globally decreased. Psychiatric: Affect appears flat, fatigued, no acute evidence of depressive or anxiety feelings. Results Lab / Micro Data Result Diagrams: 03/04/21 19:30 03/04/21 19:30 Labs: Laboratory Results - last 24 hr 03/04/21 19:30: WBC 10.9, RBC 3.20 L, Hgb 8.7 L, Hct 27.2 L, MCV 85.0, MCH 27.2, MCHC 32.0 D, RDW Std Deviation 48.8 H, RDW Coeff of Darian 15.6 H, Plt Count 312, MPV 9.1, Immature Gran % (Auto) 0.700, Neut % (Auto) 87.0 H, Lymph % (Auto) 5.2 L, [place] % (Auto) 6.3, Eos % (Auto) 0.5, Baso % (Auto) 0.3, Absolute Neuts (auto) 9.5 H, Absolute Lymphs (auto) 0.57 L, Nucleated RBC % 0 03/04/21 19:30: Sodium 135 L, Potassium 5.9 H, Chloride 107, Carbon Dioxide 12.0 L, Anion Gap 16 H, BUN 132 H*, Creatinine 11.00 H*, Estim Creat Clear Calc 4.82, Est GFR (MDRD) Af Amer 6 L, Est GFR (MDRD) Non-Af 5 L, BUN/Creatinine Ratio 12.0, Glucose 107 H, Calcium 9.4 03/04/21 19:42: Urine Color Red, Urine Clarity Turbid, Urine pH 6.5, Ur Specific [place] 1.015, Urine Protein 500 H, Urine Glucose (UA) Normal, Urine Ketones Negative, Urine Occult Blood 250 H, Urine Nitrite Negative, Urine Bilirubin Negative, Urine Urobilinogen Normal, Ur Leukocyte Esterase 100 H, Urine RBC > 100 SEEN, Urine WBC 5-10 SEEN, Ur Squamous Epith Cells 0 SEEN, Urine Bacteria 0 SEEN, Urine Mucus 0 SEEN Radiology Impression Abdomen/Pelvis CT 03/04/21 18:41 IMPRESSION: 1. Interval resolution of the small pleural effusion seen on the earlier study. 2. No other major interval change when compared to prior study. Electronically Signed: Дмитрий Grace DO at 19:33 EST Tel [phone], Service support , Assessment & Plan Assessment/Plan (1) Acute renal failure: QUALIFIERS: Acute renal failure type: unspecified Qualified Code(s): N17.9 - Acute kidney failure, unspecified PLAN: The patient is an 80 y/o M w/ PMHx: Chronic anemia/AOCD, HTN, HLD, RLS, Diabetes mellitus type II, Depression and Anxiety, Prostate CA following s/p TURP w/ Dr. Hill, Hx Colon and rectal cancer s/p resection in remission, recent 02/17/21 [facility] ED evaluation with urinary retention at that time with akers placement with UCx w/ Klesiella treated with course abx therapy with planned per discussion with patient/family 03/05/20 stent change to a larger ureteral stent as patient with significant radiation scarring with urethral strictures; however, patient has been more fatigued with malaise as well as poor appetite with onset on a.m. on day of presentation mild hematuria evident. #1. Acute kidney injury on CKD stage IIIb: Unclear etiology for worsening renal status; which certainly could be contributing. However patient was recently placed on Bactrim Admission BUN/Cr 132/11, prior baseline creatinine noted to be 2.20 01/20/2021 but has vacillated over the last several months. Will admit to PCU given mild hyperkalemia, continue to aggressively hydrate, hold nephrotoxic medications and repeat chemistry in AM, obtain renal ultrasound as well as FeNa assessment, consult nephrology, continue Akers catheter placement with close monitoring I&Os. #2. History of bilateral ureteral scarring with strictures status post prior ureteral stent placements: Per discussion with patient and family patient supposed to have stent replacement/change 03/05/2021, will consult Dr. Hill. Per discussion with patient and family patient was started on Bactrim per urology possibly for upcoming stent change out however given DEISI and urine with no obvious evidence of UTI will discontinue. #3. Hyperkalemia: Admission potassium 5.6, repeat obtained noted to be 5.9 however moderately hemolyzed, patient ministered Kayexalate 30 g p.o. x1 per ED physician, will continue aggressive fluids, repeat BMP in a.m. No EKG changes n oted. #4. Diabetes mellitus type II: Hold oral home regimen, continue home insulin regimen, ADA diet, accu checks w/ ISS. #5. Anxiety and depression: We will continue patient home Remeron regimen. #6. Chronic anemia/AOCD: Admission hemoglobin 8.7, baseline 7-8, stable, trend. #7. Hypertension: Continue home hydralazine regimen. #8. Hyperlipidemia: Not on regimen, defer to outpatient. #9. History of prostate cancer: Status post TURP, following outpatient with Dr. Hill. #10. History colon cancer and rectal cancer: Status post rectal and colon partial resection, considered in remission. #11. BPH: We will continue patient home Flomax regimen. #12. DVT prophylaxis: SCDs, hold chemoprophylaxis given hematuria with possible a.m. intervention. Charges/Coding Visit Charges Inpatient E&M: 25364 Init Hosp L3
--- NOTE | 2021-03-04 21:05 | CASEMGMT ---
GOPAL CM to room to meet with patient for initial transition planning/care coordination assessment. GOPAL ANDERSON introduced self and role at [facility]. Patient voices understanding and consents to assessment at this time. Patient's Terri Means present at bedside. Patient is alert and oriented, sitting up on ER cart in no apparent distress and answers all questions appropriately. Care providers, pharmacy, and demographics verified/updated at this time. PCP: Srinivas Thayer Specialists: Liz- urology, Genevieve- nephrology, Bacilio- podiatry Preferred Pharmacy: [facility] Insurance: [employer] Medicare Prescription Benefit: yes Living Will/HPOA: Patient has living will and HPOA on file at [facility]. HPOA is Terri Means. LNOK: Terri Means Living Arrangements: Patient lives with in two story house with 4 steps to enter the home. Patient states he was previously independent with ADLs but reports progressive weakness over the past 2 weeks and now needs assistance. Smoking/ETOH: Former smoker, denies ETOH use Transportation: DME/HHC/SNF: Patient typically ambulates using walker but reports patient has been recently too weak to ambulate so she has been pushing him on his rollator. Also available in home: shower chair, raised toilet seat and grab bars. Previous HHC through [facility] for SN and PT and patient would be interested in these services again. Denies previous SNF stays. Patient wishes to return home with C at time of discharge. CM to follow for any discharge planning/needs. Patient voices no concerns/needs at this time. Advised patient to ask for CM if any questions/concerns/needs arise. Voices understanding. Plan/goal: home with C
--- NOTE | 2021-03-04 21:20 | PCS.PANDOC ---
PANDEMIC DOCUMENTATION INITIATED: Date: 10/07/2020 Time: 190
[2021-03-04] MEDS: Sodium Polystyrene Sulfonate 15 GM/60 ML UDC 30 GM PO (21:35)
[2021-03-04 22:01] LABS: Magnesium 2.3 mg/dL (1.6-2.6); Phosphorus 9.6 mg/dL (2.5-4.9)
[2021-03-04] MEDS: Mirtazapine 15 MG Tablet PO (23:44)
[2021-03-04] MEDS: hydrALAZINE 50 MG Tablet PO (23:44)
[2021-03-04 23:50] LABS: Bedside Glucose 140 mg/dL (70-110)
[2021-03-05] VITALS (14 sets, daily range): BP systolic 145–170; BP diastolic 65–82; PULSE 108–130; RESP 17–20; TEMP 36.4–36.9; O2SAT 96–98; BMI 21.4
--- NOTE | 2021-03-05 05:55 | US_ITS ---
STUDY: RENAL ULTRASOUND - COMPLETE REASON FOR EXAM: Male, 80 years old. DEISI on CKD TECHNIQUE: Ultrasound evaluation of the kidneys was performed with real-time and static zavala-scale imaging. COMPARISON: Comparison is made with prior examination dated 09/19/2020. FINDINGS: RIGHT KIDNEY: with mild renal atrophy. The right kidney measures 8.3 cm x 3.9 cm x 3.4 cm. There is diffuse thinning of the renal cortex. The renal cortex measures 0.5 cm. There is a 1.3 cm x 1.2 cm x 1.1 cm renal cysts. There are no right renal calculi. There is moderate hydronephrosis of the right kidney. A stent is seen within the ureter. DISTAL RIGHT URETER: There is non-visualization of the distal right ureter. There is no demonstrated right ureterovesical junction calculus. There is no demonstrated right ureteral jet. LEFT KIDNEY: Normal location of the left kidney, which is normal in size. The left kidney measures 11.1 cm x 5.4 cm x 5.5 cm. There is a normal cortex of the left kidney. The renal cortex measures 1.3 cm. There is no left renal mass or cyst. There are no left renal calculi. There is mild hydronephrosis of the left kidney. A stent is seen. DISTAL LEFT URETER: There is non-visualization of the distal left ureter. There is no demonstrated left ureterovesical junction calculus. There is no demonstrated left ureteral jet. AORTA: There is no elongation or tortuosity of the abdominal aorta. Aorta measures: Proximal cm. Middle cm. Distal cm. Aorta measure transversely: Proximal cm. Middle cm. Distal cm. There is no demonstrated aneurysm.. I.V.C.: The IVC is patent. BLADDER: A MEJIA catheter is seen within the urinary bladder. US/Kidney and Bladder IMPRESSION: Bilateral hydronephrosis right greater than left. Bilateral ureteral stents are seen. Right renal atrophy. Electronically Signed: Michael Cormier MD at 13:56 EST , Service support ,
[2021-03-05] MEDS: 0.9% Normal Saline 1,000 ML 150 ML IV ×2 (06:18→13:00)
[2021-03-05 06:30] LABS: Absolute Lymphocyte Count 0.51 X10^3/uL (0.83-4.51); Absolute Neutrophil Count 7.7 X10^3/uL (2.0-7.7); Basophil# 0.03 X10^3/uL; Basophil% 0.3 % (0-1); Eosinophil# 0.06 X10^3/uL; Eosinophils% 0.7 % (0-5); Hemoglobin 7.1 g/dL (13.0-16.5); Lymphocyte # 0.51 X10^3/ul (0.83-4.51); Lymphocyte % 5.6 % (19-41); Mean Corp Hgb Conc 30.9 g/dL (32-36); Mean Corpuscular Hgb 26.9 pg (27.0-32.0); Mean Corpuscular Volume 87.1 fL (80-94); Mean Platelet Vol. 8.7 fl (6.2-12.0); Monocyte# 0.73 X10^3/uL; Monocyte% 8.1 % (0-10); NRBC Flagged by Analyzer 0 % (0-5); Neutrophil # 7.65 X10^3/uL (2.7-7.7); Neutrophil % 84.5 % (47-70); POSITIVE DIFFERENTIAL YES; Platelet Count 248 K/mm3 (150-450); RBC Distribution Width CV 15.9 % (11.6-14.6); RBC Distribution Width SD 50.3 fl (35.1-43.9); Red Blood Count 2.64 M/mm3 (4.6-6.2); White Blood Count 9.1 K/mm3 (4.4-11.0)
[2021-03-05 06:49] LABS: Differential Indicated SCAN CRITERIA MET
[2021-03-05 06:56] LABS: Bedside Glucose 94 mg/dL (70-110)
[2021-03-05 06:59] LABS: Anisocytosis 1+; Burr Cells 1+
[2021-03-05 07:11] LABS: ALB/GLOB Ratio 0.5 RATIO (0.9-2.4); AST(SGOT) 18 U/L (15-37); Alanine Aminotransfer ALT/SGPT 15 U/L (16-61); Albumin, Serum 2.2 g/dL (3.2-5.0); Alkaline Phosphatase 118 U/L (45-117); Anion Gap 17 (5-15); BUN 117 mg/dL (7-18); BUN/Creat Ratio 11.6 RATIO (10-20); Calcium,Total 8.6 mg/dL (8.5-10.1); Chloride 112 mmol/L (98-107); EST Glomerular Filtration Rate 5 mL/min (>60); Est Glom Filt Rate - Afr Amer 6 mL/min (>60); Estimated Creatinine Clearance 5.26 ml/min; Globulin 4.8 g/dL (2.2-4.2); Glucose 99 mg/dL (74-106); Potassium 5.3 mmol/L (3.5-5.1); Sodium Level 139 mmol/L (136-145)
--- NOTE | 2021-03-05 08:40 | SUR.PREOP ---
PATIENT PRE-OP IN A.C. 5. ATTEMPTED TO CALL , ADDIE, TO NOTIFY OF SURGERY PER DR BESS, NO ANSWER, LEFT MESSAGE TO CALL RN IN A.C. PATIENT STATES PROBABLY NOT AWARE.
--- NOTE | 2021-03-05 09:58 | CON.PCM.UR_ITS ---
Assessment & Plan Assessment/Plan (1) Cancer of colon with rectum: (2) Cancer of prostate: (3) Complicated acute cystitis: (4) Flank pain: (5) Acute renal failure: QUALIFIERS: Acute renal failure type: unspecified Qualified Code(s): N17.9 - Acute kidney failure, unspecified (6) Acute hyperkalemia: (7) Weakness: HPI Consult Data Date of Consult: 03/05/21 HPI Narrative HPI Narrative: ALEA SALGADO, is a 80 M who presents to the hospital with known left hydronephrosis but he was not doing well abnormal lab work and he was admitted because of weakness dehydration and infection today organ to proceed with stent change she was already on the schedule so plan to do a left stent change today on admission he was just admitted late last night. [facility] Medical History (Updated 03/05/21 @ 02:[address] Suzanne Olsen MD) Anemia Anemia due to chronic kidney disease Arthritis Back pain Cancer Cancer of prostate Cancer of rectum Chronic kidney disease Chronic kidney disease, stage 3b Depression Diabetes Diarrhea Dietary restriction Former smoker H/O fungal disease Hearing loss, left Hearing loss, right High cholesterol History of echocardiogram History of edema History of immunosuppression therapy History of pain when walking Hx of transesophageal echocardiography (SHANNAN) for monitoring Hypertension Insulin dependent diabetes mellitus Kidney disease Osteoporosis Restless legs Self-catheterizes urinary bladder Tendonitis of ankle Walker as ambulation aid Wears dentures Wears glasses Wears hearing aid in both ears Home Medications cholecalciferol (vitamin D3) 1,000 unit PO DAILY 12/08/19 [History Last Taken 09/18/20] loperamide 2 mg PO BID 12/08/19 [History Last Taken 01/01/21 09:00] hydralazine 50 mg PO BID #60 tablet 05/07/20 [Rx Last Taken 01/01/21 09:00] tamsulosin 0.4 mg PO DAILY #30 cap 05/07/20 [Rx Last Taken 09/18/20] acetaminophen [Tylenol Extra Strength] 1,000 mg PO BID 09/18/20 [History Last Taken 09/18/20] Lantus Solostar U-100 Insulin 10 unit SUBCUT DAILY 12/25/20 [History Last Taken Unknown] cephalexin 500 mg PO BID 02/26/21 [History Last Taken Unknown] mirtazapine 15 mg PO QHS 03/04/21 [History Last Taken Unknown] sulfamethoxazole-trimethoprim 1 tab PO BID 03/04/21 [History Last Taken Unknown] Allergy/AdvReac Type Severity Reaction Status Date / Time No Known Allergies Allergy Verified 02/26/21 10:07 Family History Mother Diabetes Father CVA (cerebral vascular accident) Sister Heart disease Brother Heart disease Surgical History H/O partial resection of colon History of renal stent Hx of cystoscopy Hx of cystoscopy Hx of transurethral resection of prostate Social History (Updated 03/05/21 @ 02:[address] Suzanne Olsen MD) household members: spouse housing: house current occupational status: retired Smoking Status: Former smoker alcohol intake: never substance use type: does not use Lab / Micro Data Result Diagrams: 03/05/21 05:42 03/05/21 05:42 Labs: Laboratory Results - last 24 hr 03/04/21 19:30: WBC 10.9, RBC 3.20 L, Hgb 8.7 L, Hct 27.2 L, MCV 85.0, MCH 27.2, MCHC 32.0 D, RDW Std Deviation 48.8 H, RDW Coeff of Darian 15.6 H, Plt Count 312, MPV 9.1, Immature Gran % (Auto) 0.700, Neut % (Auto) 87.0 H, Lymph % (Auto) 5.2 L, [place] % (Auto) 6.3, Eos % (Auto) 0.5, Baso % (Auto) 0.3, Absolute Neuts (auto) 9.5 H, Absolute Lymphs (auto) 0.57 L, Nucleated RBC % 0, Differential Comment SEE COMMENT, Platelet Estimate ADEQUATE, RBC Morphology NORM C+C 03/04/21 19:30: Sodium 135 L, Potassium 5.9 H, Chloride 107, Carbon Dioxide 12.0 L, Anion Gap 16 H, BUN 132 H*, Creatinine 11.00 H*, Estim Creat Clear Calc 4.82, Est GFR (MDRD) Af Amer 6 L, Est GFR (MDRD) Non-Af 5 L, BUN/Creatinine Ratio 12.0, Glucose 107 H, Calcium 9.4 03/04/21 19:30: Phosphorus 9.6 H*, Magnesium 2.3 03/04/21 19:42: Urine Color Red, Urine Clarity Turbid, Urine pH 6.5, Ur Specific [place] 1.015, Urine Protein 500 H, Urine Glucose (UA) Normal, Urine Ketones Negative, Urine Occult Blood 250 H, Urine Nitrite Negative, Urine Bilirubin Negative, Urine Urobilinogen Normal, Ur Leukocyte Esterase 100 H, Urine RBC > 100 SEEN, Urine WBC 5-10 SEEN, Ur Squamous Epith Cells 0 SEEN, Urine Bacteria 0 SEEN, Urine Mucus 0 SEEN 03/04/21 23:42: POC Glucose 140 H 03/05/21 05:42: WBC 9.1, RBC 2.64 L, Hgb 7.1 L, Hct 23.0 L, MCV 87.1, MCH 26.9 L , MCHC 30.9 L, RDW Std Deviation 50.3 H, RDW Coeff of Darian 15.9 H, Plt Count 248, MPV 8.7, Immature Gran % (Auto) 0.800, Neut % (Auto) 84.5 H, Lymph % (Auto) 5.6 L, [place] % (Auto) 8.1, Eos % (Auto) 0.7, Baso % (Auto) 0.3, Absolute Neuts (auto) 7.7, Absolute Lymphs (auto) 0.51 L, Nucleated RBC % 0, Anisocytosis 1+, Betty Cells 1+ 03/05/21 05:42: Sodium 139, Potassium 5.3 H, Chloride 112 H, Carbon Dioxide 10.0 L, Anion Gap 17 H, BUN 117 H*, Creatinine 10.10 H*, Estim Creat Clear Calc 5.26, Est GFR (MDRD) Af Amer 6 L, Est GFR (MDRD) Non-Af 5 L, BUN/Creatinine Ratio 11.6, Glucose 99, Calcium 8.6, Total Bilirubin 0.30, AST 18, ALT 15 L, Alkaline Phosphatase 118 H, Total Protein 7.0, Albumin 2.2 L, Globulin 4.8 H, Albumin/Globulin Ratio 0.5 L 03/05/21 06:50: POC Glucose 94 Micro: Microbiology 03/05/21 07:35 Nasal Secretion SARS-CoV-2 Antigen (Rapid) - Final Radiology Impression Abdomen/Pelvis CT 01/11/22 18:41 IMPRESSION: 1. Interval resolution of the small pleural effusion seen on the earlier study. 2. No other major interval change when compared to prior study. Electronically Signed: Дмитрий Grace DO at 19:33 EST Tel [phone], Service support ,
--- NOTE | 2021-03-05 09:59 | OP.PCM_ITS ---
Report of Operation Date of Procedure: 03/05/21 Pre-Operative Diagnosis: Left hydronephrosis left pyelonephritis weakness and a cute renal failure Post-Operative Diagnosis: Same Surgery/Procedure Performed:: Cystoscopy, left retrograde pyelogram interpretation fluoroscopic images and left stent placement Description of Surgical Findings:: Indication this is an 80-year-old male was already planning to change his left stent I saw him in the office 2 weeks ago he was having some pain in the left side and ultrasound in the office demonstrated a hydronephrotic kidney so he was on the schedule for stent change he then became weaker was admitted to the hospital was found to have an infection acute renal failure dehydration and weakness so organ to plan to go ahead and proceed with a left stent change, he was taken back to the operating room after smooth induction of general anesthesia he was placed in dorsolithotomy position the penis and testicles were prepped and draped in usual sterile fashion I went into the bladder with a 21 American rigid cystourethroscope I grabbed the existing stent with a grasper pulled out the meatus and then put a wire up to the stent this is a 6 American by 26 cm stent once the wire coiled in the kidney I put a Pollick catheter 5 American open-ended catheter over the wire and then performed a retrograde pyelogram see contrast going up to the kidney and contrast filling the kidney kidney with hydronephrosis. After this was accomplished then through the Pollick catheter advanced a 0.038 guidewire coiled it up in the kidney and then backloaded the cystoscope over the guidewire and over the guidewire then it floated a new 8.5 American 26 cm stent visible of the larger stent once a stent was going up then immediately I got return of pure white looking pus purulent urine from the left kidney consistent with obstruction and looked at the purulent material blocked the old stent and the larger stent was now draining it well I did send off a sample of his urine for culture and would recommend posto perative antibiotics did speak with the medical team. Send the urine for culture new stent was placed then we placed an 18 American catheter in the bladder and the patient anesthetic was reversed taken back to the PACU in stable condition. Hopefully the new stent will drain the infection and improve his kidney function. Surgeon: riley Type of Anesthesia: General Admit VTE Documentation VTE Present on Admission: No VTE Mechan Device Prophylaxis: SCD's VTE Pharm Prophylaxis ordered?: No
[2021-03-05] MEDS: hydrALAZINE 50 MG Tablet PO ×2 (12:03→21:01)
[2021-03-05] MEDS: Tamsulosin HCl 0.4 MG Capsule PO (12:04)
[2021-03-05 12:11] LABS: Bedside Glucose 106 mg/dL (70-110)
[2021-03-05] MEDS: Sodium Polystyrene Sulfonate 15 GM/60 ML UDC 30 GM PO (12:12)
--- NOTE | 2021-03-05 13:10 | PCM.CONS.R ---
Documented by User: LANEY Adkins 03/05/21 13:37 Assessment & Plan Assessment/Plan (1) DEISI (acute kidney injury): (2) Hyperkalemia: (3) CKD (chronic kidney disease) stage 3, GFR 30-59 ml/min: PLAN: Patient was admitted for acute kidney injury, hyperkalemia, possible UTI, weakness and also planned left ureteral stent change on 03/05/2021. Patient has known history of chronic kidney disease stage III, baseline creatinine is around 2.2 mg/dL. Patient's creatinine was 2.2 mg/dL in December 2020. Patient's creatinine on admission is 11 mg/dL, potassium was 5.9. Noncontrast CT of abdomen and pelvis done on admission showed hydronephrosis left kidney. DEISI is likely from hydronephrosis, poor oral intake/volume depletion, possible concurrent Bactrim use. Patient received Kayexalate, repeat potassium is now 5.2. Bactrim has been stopped. Patient has been following with Dr. Hill, known to have hydronephrosis of left kidney and was planned to have stent replaced/changed today. Patient already went for his procedure, cystoscopy and left stent replacement this morning. Labs were just drawn and creatinine is 9.76 mg/dL, BUN 116, repeat potassium is 5.2. Though there is mild hyperkalemia and acidosis, at this time there is no acute indication for ESCROW CLERK. Patient does not need any further Kayexalate today, recommend low potassium diet restrictions for now and continue off Bactrim. We will start oral bicarb. Patient is nonoliguric, he appears to be hypovolemic and recommended continue with IV fluids as you are doing. Blood pressures are acceptable on hydralazine. Urine culture pending, patient is on Zosyn. Patient is eating, encouraged patient to increase fluids as best as he can. Further orders forthcoming as hospitalization evolves. Thank you for allowing us participate in the care of Mr. Means. HPI Consult Data Date of Consult: 03/05/21 HPI Narrative HPI Narrative: ALEA MEANS, is a 80 M who has past medical history significant for diabetes mellitus type 2, depression, prostate cancer status post TURP followed by Dr. Hill, history of colon and rectal cancer status postresection in remission who end of January was evaluated in the emergency room for urinary retention and had Judd catheter placed at that time. His urine culture showed Klebsiella and he was treated with antibiotics. Patient then had lab work by his PCP, was found to have elevated creatinine of 10 and therefore he was encouraged to go to the emergency room for further evaluation and treatment. Patient has a history of chronic kidney disease stage III and is followed by Dr. Vallejo, baseline Creatinine around 2.2mg/dL. Patient was admitted for DEISI, hyperkalemia, possible UTI, and planned cysto per Dr. Hill. We are consulted for acute kidney injury. Patient reports for the last 2 weeks he has had very poor appetite, very fatigued, no vomiting but does complain of nausea. Patient reports because of history of colon cancer his stool is soft in nature, no changes in stool consistency. Patient also reports few days ago he noted red-tinged urine in Judd bag, no clots. Denies NSAIDs. [facility] Medical History (Updated 03/05/21 @ 13:17 by Lillie Villagomez NP-Terry) Anemia Anemia due to chronic kidney disease Arthritis Back pain Cancer Cancer of prostate Cancer of rectum Chronic kidney disease Chronic kidney disease, stage 3b Depression Diabetes Diarrhea Dietary restriction Former smoker H/O fungal disease Hearing loss, left Hearing loss, right High cholesterol History of echocardiogram History of edema History of immunosuppression therapy History of pain when walking Hx of transesophageal echocardiography (SHANNAN) for monitoring Hypertension Insulin dependent diabetes mellitus Kidney disease Osteoporosis Restless legs Self-catheterizes urinary bladder Tendonitis of ankle Walker as ambulation aid Wears dentures Wears glasses Wears hearing aid in both ears Home Medications cholecalciferol (vitamin D3) 1,000 unit PO DAILY 12/08/19 [History Last Taken 09/18/20] loperamide 2 mg PO BID 12/08/19 [History Last Taken 01/01/21 09:00] hydralazine 50 mg PO BID #60 tablet 05/07/20 [Rx Last Taken 01/01/21 09:00] tamsulosin 0.4 mg PO DAILY #30 cap 05/07/20 [Rx Last Taken 09/18/20] acetaminophen [Tylenol Extra Strength] 1,000 mg PO BID 09/18/20 [History Last Taken 09/18/20] Lantus Solostar U-100 Insulin 10 unit SUBCUT DAILY 12/25/20 [History Last Taken Unknown] cephalexin 500 mg PO BID 02/26/21 [History Last Taken Unknown] mirtazapine 15 mg PO QHS 03/04/21 [History Last Taken Unknown] sulfamethoxazole-trimethoprim 1 tab PO BID 03/04/21 [History Last Taken Unknown] Allergy/AdvReac Type Severity Reaction Status Date / Time No Known Allergies Allergy Verified 02/26/21 10:07 Family History Mother Diabetes Father CVA (cerebral vascular accident) Sister Heart disease Brother Heart disease Surgical History H/O partial resection of colon History of renal stent Hx of cystoscopy Hx of cystoscopy Hx of transurethral resection of prostate Social History (Updated 03/05/21 @ 02:[address] Suzanne Olsen MD) household members: spouse housing: house current occupational status: retired Smoking Status: Former smoker alcohol intake: never substance use type: does not use Physical Exam Narrative Const: Alert and oriented, no acute distress Cardio: S1, S2, rhythm rate regular Respiratory: Lung sounds clear anteriorly posteriorly, no wheeze rhonchi rales noted GI: Abdomen soft, positive bowel sounds : Indwelling Judd with clear urine in bag Extremities: No pitting edema noted bilateral lower legs or arms Lab / Micro Data Result Diagrams: 03/05/21 17:00 03/05/21 11:46 Labs: Laboratory Results - last 24 hr 03/04/21 19:30: WBC 10.9, RBC 3.20 L, Hgb 8.7 L, Hct 27.2 L, MCV 85.0, MCH 27.2, MCHC 32.0 D, RDW Std Deviation 48.8 H, RDW Coeff of Darian 15.6 H, Plt Count 312, MPV 9.1, Immature Gran % (Auto) 0.700, Neut % (Auto) 87.0 H, Lymph % (Auto) 5.2 L, [place] % (Auto) 6.3, Eos % (Auto) 0.5, Baso % (Auto) 0.3, Absolute Neuts (auto) 9.5 H, Absolute Lymphs (auto) 0.57 L, Nucleated RBC % 0, Differential Comment SEE COMMENT, Platelet Estimate ADEQUATE, RBC Morphology NORM C+C 03/04/21 19:30: Sodium 135 L, Potassium 5.9 H, Chloride 107, Carbon Dioxide 12.0 L, Anion Gap 16 H, BUN 132 H*, Creatinine 11.00 H*, Estim Creat Clear Calc 4.82, Est GFR (MDRD) Af Amer 6 L, Est GFR (MDRD) Non-Af 5 L, BUN/Creatinine Ratio 12.0, Glucose 107 H, Calcium 9.4 03/04/21 19:30: Phosphorus 9.6 H*, Magnesium 2.3 03/04/21 19:42: Urine Color Red, Urine Clarity Turbid, Urine pH 6.5, Ur Specific [place] 1.015, Urine Protein 500 H, Urine Glucose (UA) Normal, Urine Ketones Negative, Urine Occult Blood 250 H, Urine Nitrite Negative, Urine Bilirubin Negative, Urine Urobilinogen Normal, Ur Leukocyte Esterase 100 H, Urine RBC > 100 SEEN, Urine WBC 5-10 SEEN, Ur Squamous Epith Cells 0 SEEN, Urine Bacteria 0 SEEN, Urine Mucus 0 SEEN 03/04/21 23:42: POC Glucose 140 H 03/05/21 05:42: WBC 9.1, RBC 2.64 L, Hgb 7.1 L, Hct 23.0 L, MCV 87.1, MCH 26.9 L, MCHC 30.9 L, RDW Std Deviation 50.3 H, RDW Coeff of Darian 15.9 H, Plt Count 248, MPV 8.7, Immature Gran % (Auto) 0.800, Neut % (Auto) 84.5 H, Lymph % (Auto) 5.6 L, [place] % (Auto) 8.1, Eos % (Auto) 0.7, Baso % (Auto) 0.3, Absolute Neuts (auto) 7.7, Absolute Lymphs (auto) 0.51 L, Nucleated RBC % 0, Anisocytosis 1+, Betty Cells 1+ 03/05/21 05:42: Sodium 139, Potassium 5.3 H, Chloride 112 H, Carbon Dioxide 10.0 L, Anion Gap 17 H, BUN 117 H*, Creatinine 10.10 H*, Estim Creat Clear Calc 5.26, Est GFR (MDRD) Af Amer 6 L, Est GFR (MDRD) Non-Af 5 L, BUN/Creatinine Ratio 11.6, Glucose 99, Calcium 8.6, Total Bilirubin 0.30, AST 18, ALT 15 L, Alkaline Phosphatase 118 H, Total Protein 7.0, Albumin 2.2 L, Globulin 4.8 H, Albumin/Globulin Ratio 0.5 L 03/05/21 06:50: POC Glucose 94 03/05/21 11:47: POC Glucose 106 Micro: Microbiology 03/05/21 07:35 Nasal Secretion SARS-CoV-2 Antigen (Rapid) - Final Radiology Impression Abdomen/Pelvis CT 03/04/21 18:41 IMPRESSION: 1. Interval resolution of the small pleural effusion seen on the earlier study. 2. No other major interval change when compared to prior study. Electronically Signed: Дмитрий Grace DO at 19:33 EST Tel [phone], Service support , Documented by User: Dr. Francisca Wheat MD 03/05/21 18:14 HPI Consult Data Date of Consult: 03/05/21 [facility] Medical History (Updated 03/05/21 @ 13:17 by Lillie Villagomez NP-Terry) Anemia Anemia due to chronic kidney disease Arthritis Back pain Cancer Cancer of prostate Cancer of rectum Chronic kidney disease Chronic kidney disease, stage 3b Depression Diabetes Diarrhea Dietary restriction Former smoker H/O fungal disease Hearing loss, left Hearing loss, right High cholesterol History of echocardiogram History of edema History of immunosuppression therapy History of pain when walking Hx of transesophageal echocardiography (SHANNAN) for monitoring Hypertension Insulin dependent diabetes mellitus Kidney disease Osteoporosis Restless legs Self-catheterizes urinary bladder Tendonitis of ankle Walker as ambulation aid Wears dentures Wears glasses Wears hearing aid in both ears Home Medications cholecalciferol (vitamin D3) 1,000 unit PO DAILY 12/08/19 [History Last Taken 09/18/20] loperamide 2 mg PO BID 12/08/19 [History Last Taken 01/01/21 09:00] hydralazine 50 mg PO BID #60 tablet 05/07/20 [Rx Last Taken 01/01/21 09:00] tamsulosin 0.4 mg PO DAILY #30 cap 05/07/20 [Rx Last Taken 09/18/20] acetaminophen [Tylenol Extra Strength] 1,000 mg PO BID 09/18/20 [History Last Taken 09/18/20] Lantus Solostar U-100 Insulin 10 unit SUBCUT DAILY 12/25/20 [History Last Taken Unknown] cephalexin 500 mg PO BID 02/26/21 [History Last Taken Unknown] mirtazapine 15 mg PO QHS 03/04/21 [History Last Taken Unknown] sulfamethoxazole-trimethoprim 1 tab PO BID 03/04/21 [History Last Taken Unknown] Allergy/AdvReac Type Severity Reaction Status Date / Time No Known Allergies Allergy Verified 02/26/21 10:07 Family History Mother Diabetes Father CVA (cerebral vascular accident) Sister Heart disease Brother Heart disease Surgical History H/O partial resection of colon History of renal stent Hx of cystoscopy Hx of cystoscopy Hx of transurethral resection of prostate Social History (Updated 03/05/21 @ 02:[address] Suzanne Olsen MD) household members: spouse housing: house current occupational status: retired Smoking Status: Former smoker alcohol intake: never substance use type: does not use Lab / Micro Data Result Diagrams: 03/05/21 17:00 03/05/21 11:46
[2021-03-05 13:13] LABS: Anion Gap 13 (5-15); BUN 116 mg/dL (7-18); BUN/Creat Ratio 11.9 RATIO (10-20); Calcium,Total 8.8 mg/dL (8.5-10.1); Chloride 116 mmol/L (98-107); Creatinine, Serum 9.76 mg/dL (0.70-1.30); EST Glomerular Filtration Rate 6 mL/min (>60); Est Glom Filt Rate - Afr Amer 7 mL/min (>60); Estimated Creatinine Clearance 5.45 ml/min; Glucose 104 mg/dL (74-106); Potassium 5.2 mmol/L (3.5-5.1); Sodium Level 140 mmol/L (136-145)
[2021-03-05] MEDS: Piperacil/Tazobactam 3.375 GM/50 ML ML IV ×2 (13:21→21:07)
--- NOTE | 2021-03-05 14:50 | PN.HOSP_ITS ---
Subjective Subjective Patient seen and examined. He had stent replacement by urology today and. Discussion with urology, he had a lot of pus from the stent. This was sent for cultures. He has no other complaints. He was started on IV Zosyn and urine cultures and blood cultures are pending. Objective Data Objective Data Vital Signs: Vital Signs Temp Pulse Resp BP Pulse Ox 97.6 F L 116 H 18 146/69 H 97 03/05/21 12:00 03/05/21 12:03 03/05/21 12:00 03/05/21 12:03 03/05/21 12:00 Oxygen Delivery Method Room Air Weight: 140 lb 10.479 oz Body Mass Index (BMI) 21.4 Intake & Output: Intake and Output for Last 24 Hours 03/03/21 03/04/21 03/05/21 23:59 23:59 23:59 Intake Total 1237.5 / 1237.5 1042.5 / 1042.5 Output Total 250 / 250 525 / 525 Balance 987.5 / 987.5 517.5 / 517.5 Lab / Micro Data Result Diagrams: 03/05/21 05:42 03/05/21 11:46 Labs: Laboratory Results - last 24 hr 03/04/21 19:30: WBC 10.9, RBC 3.20 L, Hgb 8.7 L, Hct 27.2 L, MCV 85.0, MCH 27.2, MCHC 32.0 D, RDW Std Deviation 48.8 H, RDW Coeff of Darian 15.6 H, Plt Count 312, MPV 9.1, Immature Gran % (Auto) 0.700, Neut % (Auto) 87.0 H, Lymph % (Auto) 5.2 L, [place] % (Auto) 6.3, Eos % (Auto) 0.5, Baso % (Auto) 0.3, Absolute Neuts (auto) 9.5 H, Absolute Lymphs (auto) 0.57 L, Nucleated RBC % 0, Differential Comment SEE COMMENT, Platelet Estimate ADEQUATE, RBC Morphology NORM C+C 03/04/21 19:30: Sodium 135 L, Potassium 5.9 H, Chloride 107, Carbon Dioxide 12.0 L, Anion Gap 16 H, BUN 132 H*, Creatinine 11.00 H*, Estim Creat Clear Calc 4.82, Est GFR (MDRD) Af Amer 6 L, Est GFR (MDRD) Non-Af 5 L, BUN/Creatinine Ratio 12.0, Glucose 107 H, Calcium 9.4 03/04/21 19:30: Phosphorus 9.6 H*, Magnesium 2.3 03/04/21 19:42: Urine Color Red, Urine Clarity Turbid, Urine pH 6.5, Ur Specific [place] 1.015, Urine Protein 500 H, Urine Glucose (UA) Normal, Urine Ketones Negative, Urine Occult Blood 250 H, Urine Nitrite Negative, Urine Bilirubin Negative, Urine Urobilinogen Normal, Ur Leukocyte Esterase 100 H, Urine RBC > 100 SEEN, Urine WBC 5-10 SEEN, Ur Squamous Epith Cells 0 SEEN, Urine Bacteria 0 SEEN, Urine Mucus 0 SEEN 03/04/21 23:42: POC Glucose 140 H 03/05/21 05:42: WBC 9.1, RBC 2.64 L, Hgb 7.1 L, Hct 23.0 L, MCV 87.1, MCH 26.9 L , MCHC 30.9 L, RDW Std Deviation 50.3 H, RDW Coeff of Darian 15.9 H, Plt Count 248, MPV 8.7, Immature Gran % (Auto) 0.800, Neut % (Auto) 84.5 H, Lymph % (Auto) 5.6 L, [place] % (Auto) 8.1, Eos % (Auto) 0.7, Baso % (Auto) 0.3, Absolute Neuts (auto) 7.7, Absolute Lymphs (auto) 0.51 L, Nucleated RBC % 0, Anisocytosis 1+, Betty Cells 1+ 03/05/21 05:42: Sodium 139, Potassium 5.3 H, Chloride 112 H, Carbon Dioxide 10.0 L, Anion Gap 17 H, BUN 117 H*, Creatinine 10.10 H*, Estim Creat Clear Calc 5.26, Est GFR (MDRD) Af Amer 6 L, Est GFR (MDRD) Non-Af 5 L, BUN/Creatinine Ratio 11.6, Glucose 99, Calcium 8.6, Total Bilirubin 0.30, AST 18, ALT 15 L, Alkaline Phosphatase 118 H, Total Protein 7.0, Albumin 2.2 L, Globulin 4.8 H, Albumin/Globulin Ratio 0.5 L 03/05/21 06:50: POC Glucose 94 03/05/21 11:46: Sodium 140, Potassium 5.2 H, Chloride 116 H, Carbon Dioxide 11.0 L, Anion Gap 13, BUN 116 H*, Creatinine 9.76 H*, Estim Creat Clear Calc 5.45, Est GFR (MDRD) Af Amer 7 L, Est GFR (MDRD) Non-Af 6 L, BUN/Creatinine Ratio 11.9, Glucose 104, Calcium 8.8 03/05/21 11:47: POC Glucose 106 Micro: Microbiology 03/05/21 10:00 Other - Fluid Gram Stain - Final 03/05/21 07:35 Nasal Secretion SARS-CoV-2 Antigen (Rapid) - Final Radiography Diagnostic Testing: Radiology Impression Abdomen/Pelvis CT 03/04/21 18:41 IMPRESSION: 1. Interval resolution of the small pleural effusion seen on the earlier study. 2. No other major interval change when compared to prior study. Electronically Signed: Дмитрий Grace DO at 19:33 EST Tel [phone], Service support , Renal Ultrasound 03/05/21 05:55 IMPRESSION: Bilateral hydronephrosis right greater than left. Bilateral ureteral stents are seen. Right renal atrophy. Electronically Signed: Michael Cormier MD at 13:56 EST , Service support , Physical Exam Const alert, oriented x3 and no apparent distress Exam Limitations: no limitations HEENT head/scalp atraumatic Head and Scalp: normocephalic Mouth: dry mucous membranes Eyes PERRL, EOMs intact bilaterally and conjunctivae normal Neck no lymphadenopathy Resp normal respiratory effort, no retractions, no use of accessory muscles and clear to auscultation bilaterally Cardio S1 normal heart sound, S2 normal heart sound and no murmurs Cardio Narrative: tachycardic GI normal to inspection, nondistended, normoactive bowel sounds, soft to palpation, non-tender and non-distended Extremity normal to inspection and no clubbing, cyanosis or edema Peripheral Pulses: Yes pulses 2+ throughout Skin no rashes or lesions noted Neuro oriented x3, CN's II-XII intact bilaterally and moves all extremities Sensorium / Orientation: awake and alert Psych affect normal Assessment & Plan Assessment/Plan (1) DEISI (acute kidney injury): (2) Complicated acute cystitis: PLAN: #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 * Potassium is down to 5.3. Will give Kayexalate * Baseline is around 2.2. Patient being hydrated with IV fluids. Nephrology on board. * Hopefully kidney function will improve since stents have been changed. If it does not, dialysis will be the next option. * #Non-anion gap metabolic acidosis due to DEISI on CKD stage IIIb * Bicarb is 11. Anion gap is 13. Likely due to DEISI on CKD. Nephrology on . 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 * Culture sent and patient started on IV Zosyn. * Blood cultures and urine cultures pending. * Urology on board. * #Type 2 diabetes mellitus: On Lantus 10 units daily. Insulin sliding scale. Checks ACH S. #Anxiety and depression: on Remeron #Anemia of chronic disease: Hemoglobin is down to 7.1 today. We will repeat and transfuse if hemoglobin is less than 7. #History of colon and rectal cancer: S/p resection. Follow-up with oncology on outpatient basis. DVT prophylaxis: SCDs Charges/Coding Visit Charges Inpatient E&M: 55219 [facility] Hosp L3
[2021-03-05] MEDS: Sodium Bicarbonate 650 MG Tablet PO ×2 (16:12→22:32)
[2021-03-05] MEDS: Insulin Lispro 100 UNIT/ML INSULN.PEN SC (16:21)
[2021-03-05 16:56] LABS: Bedside Glucose 159 mg/dL (70-110)
[2021-03-05 17:25] LABS: Absolute Lymphocyte Count 0.35 X10^3/uL (0.83-4.51); Absolute Neutrophil Count 8.5 X10^3/uL (2.0-7.7); Basophil# 0.02 X10^3/uL; Basophil% 0.2 % (0-1); Eosinophil# 0.01 X10^3/uL; Eosinophils% 0.1 % (0-5); Hematocrit 22.9 % (40-54); Hemoglobin 7.5 g/dL (13.0-16.5); Lymphocyte # 0.35 X10^3/ul (0.83-4.51); Lymphocyte % 3.7 % (19-41); Mean Corp Hgb Conc 32.8 g/dL (32-36); Mean Corpuscular Hgb 27.1 pg (27.0-32.0); Mean Corpuscular Volume 82.7 fL (80-94); Mean Platelet Vol. 8.6 fl (6.2-12.0); Monocyte# 0.52 X10^3/uL; Monocyte% 5.5 % (0-10); NRBC Flagged by Analyzer 0 % (0-5); Neutrophil # 8.47 X10^3/uL (2.7-7.7); Neutrophil % 89.9 % (47-70); POSITIVE DIFFERENTIAL YES; Platelet Count 247 K/mm3 (150-450); RBC Distribution Width CV 15.6 % (11.6-14.6); RBC Distribution Width SD 47.3 fl (35.1-43.9); Red Blood Count 2.77 M/mm3 (4.6-6.2); White Blood Count 9.4 K/mm3 (4.4-11.0)
[2021-03-05 17:31] LABS: Differential Indicated SCAN CRITERIA MET
[2021-03-05 17:42] LABS: Differential Comment SCANNED
[2021-03-05] MEDS: Mirtazapine 15 MG Tablet PO (21:01)
[2021-03-05 21:10] LABS: Bedside Glucose 143 mg/dL (70-110)
[2021-03-05 21:13] LABS: Urine Sodium 72 mmol/L (Not Establ.)
[2021-03-06] VITALS (22 sets, daily range): BP systolic 148–170; BP diastolic 75–136; PULSE 102–122; RESP 16–18; TEMP 36.2–37.2; O2SAT 96–99
[2021-03-06 06:28] LABS: Absolute Lymphocyte Count 0.53 X10^3/uL (0.83-4.51); Absolute Neutrophil Count 7.8 X10^3/uL (2.0-7.7); Basophil# 0.02 X10^3/uL; Basophil% 0.2 % (0-1); Eosinophil# 0.04 X10^3/uL; Eosinophils% 0.4 % (0-5); Hematocrit 21.1 % (40-54); Hemoglobin 6.7 g/dL (13.0-16.5); Lymphocyte # 0.53 X10^3/ul (0.83-4.51); Lymphocyte % 5.7 % (19-41); Mean Corp Hgb Conc 31.8 g/dL (32-36); Mean Corpuscular Hgb 26.4 pg (27.0-32.0); Mean Corpuscular Volume 83.1 fL (80-94); Mean Platelet Vol. 8.5 fl (6.2-12.0); Monocyte# 0.78 X10^3/uL; Monocyte% 8.4 % (0-10); NRBC Flagged by Analyzer 0 % (0-5); Neutrophil # 7.82 X10^3/uL (2.7-7.7); Neutrophil % 84.4 % (47-70); POSITIVE DIFFERENTIAL YES; Platelet Count 235 K/mm3 (150-450); RBC Distribution Width CV 15.8 % (11.6-14.6); RBC Distribution Width SD 48.4 fl (35.1-43.9); Red Blood Count 2.54 M/mm3 (4.6-6.2); White Blood Count 9.3 K/mm3 (4.4-11.0)
[2021-03-06 06:41] LABS: Differential Indicated SCAN CRITERIA MET
[2021-03-06 07:04] LABS: Anion Gap 13 (5-15); BUN 103 mg/dL (7-18); BUN/Creat Ratio 11.3 RATIO (10-20); Calcium,Total 8.6 mg/dL (8.5-10.1); Chloride 111 mmol/L (98-107); Creatinine, Serum 9.08 mg/dL (0.70-1.30); Differential Comment SCANNED; EST Glomerular Filtration Rate 6 mL/min (>60); Est Glom Filt Rate - Afr Amer 7 mL/min (>60); Estimated Creatinine Clearance 6.13 ml/min; Glucose 136 mg/dL (74-106); Potassium 3.6 mmol/L (3.5-5.1); Sodium Level 140 mmol/L (136-145)
[2021-03-06 07:10] LABS: Bedside Glucose 111 mg/dL (70-110)
[2021-03-06] MEDS: Piperacil/Tazobactam 3.375 GM/50 ML ML IV ×2 (08:09→21:05)
[2021-03-06] MEDS: hydrALAZINE 50 MG Tablet PO ×3 (08:13→21:17)
[2021-03-06] MEDS: Sodium Bicarbonate 650 MG Tablet PO ×2 (08:14→21:17)
[2021-03-06] MEDS: Tamsulosin HCl 0.4 MG Capsule PO (08:14)
--- NOTE | 2021-03-06 09:15 | PN.RENAL_ITS ---
Subjective Subjective Following for DEISI on CKD Resting in bed, at bedside. Denies any N/V. States had multiple loose bms throughout the night. Reports still feeling tired. Objective Data Objective Data Vital Signs: Vital Signs Temp Pulse Resp BP Pulse Ox 97.8 F 115 H 18 170/79 H 99 03/06/21 08:10 03/06/21 08:13 03/06/21 08:10 03/06/21 08:13 03/06/21 08:10 Oxygen Delivery Method Room Air Weight: 66.8 kg Body Mass Index (BMI) 21.4 Intake & Output: Intake and Output for Last 24 Hours 03/04/21 03/05/21 03/06/21 23:59 23:59 23:59 Intake Total 1237.5 / 1237.5 3332.5 / 3332.5 1485.00 / 1485.00 Output Total 250 / 250 1125 / 1425 400 / 400 Balance 987.5 / 987.5 2207.5 / 1907.5 1085.00 / 1085.00 Lab / Micro Data Result Diagrams: 03/06/21 06:17 03/06/21 06:17 Labs: Laboratory Results - last 24 hr 03/05/21 11:46: Sodium 140, Potassium 5.2 H, Chloride 116 H, Carbon Dioxide 11.0 L, Anion Gap 13, BUN 116 H*, Creatinine 9.76 H*, Estim Creat Clear Calc 5.45, Est GFR (MDRD) Af Amer 7 L, Est GFR (MDRD) Non-Af 6 L, BUN/Creatinine Ratio 11.9, Glucose 104, Calcium 8.8 03/05/21 11:47: POC Glucose 106 03/05/21 16:17: POC Glucose 159 H 03/05/21 17:00: WBC 9.4, RBC 2.77 L, Hgb 7.5 L, Hct 22.9 L, MCV 82.7 D, MCH 27.1, MCHC 32.8 D, RDW Std Deviation 47.3 H, RDW Coeff of Darian 15.6 H, Plt Count 247, MPV 8.6, Immature Gran % (Auto) 0.600, Neut % (Auto) 89.9 H, Lymph % (Auto) 3.7 L, [place] % (Auto) 5.5, Eos % (Auto) 0.1, Baso % (Auto) 0.2, Absolute Neuts (auto) 8.5 H, Absolute Lymphs (auto) 0.35 L, Nucleated RBC % 0, Differential Comment SCANNED 03/05/21 20:45: Ur Random Sodium 72, Urine Creatinine 28.40 03/05/21 20:58: POC Glucose 143 H 03/06/21 06:17: Sodium 140, Potassium 3.6, Chloride 111 H, Carbon Dioxide 16.0 L , Anion Gap 13, BUN 103 H*, Creatinine 9.08 H*, Estim Creat Clear Calc 6.13, Est GFR (MDRD) Af Amer 7 L, Est GFR (MDRD) Non-Af 6 L, BUN/Creatinine Ratio 11.3, Glucose 136 H, Calcium 8.6 03/06/21 06:17: WBC 9.3, RBC 2.54 L, Hgb 6.7 L, Hct 21.1 L, MCV 83.1, MCH 26.4 L , MCHC 31.8 L, RDW Std Deviation 48.4 H, RDW Coeff of Darian 15.8 H, Plt Count 235, MPV 8.5, Immature Gran % (Auto) 0.900, Neut % (Auto) 84.4 H, Lymph % (Auto) 5.7 L, [place] % (Auto) 8.4, Eos % (Auto) 0.4, Baso % (Auto) 0.2, Absolute Neuts (auto) 7.8 H, Absolute Lymphs (auto) 0.53 L, Nucleated RBC % 0, Differential Comment SCANNED 03/06/21 06:58: POC Glucose 111 H 03/06/21 08:36: Crossmatch See Detail Micro: Microbiology 03/05/21 10:00 Other - Fluid Gram Stain - Final 03/05/21 07:35 Nasal Secretion SARS-CoV-2 Antigen (Rapid) - Final Radiography Diagnostic Testing: Radiology Impression Renal Ultrasound 03/05/21 05:55 IMPRESSION: Bilateral hydronephrosis right greater than left. Bilateral ureteral stents are seen. Right renal atrophy. Electronically Signed: Michael Cormier MD at 13:56 EST , Service support , Physical Exam Narrative Const: Alert and oriented, no acute distress Cardio: S1, S2, rhythm rate regular Respiratory: Lung sounds clear anteriorly posteriorly, no wheeze rhonchi rales noted GI: Abdomen soft, positive bowel sounds : Indwelling [place] with clear urine in bag Extremities: No pitting edema noted bilateral lower legs or arms akers: clear light yellow urine Assessment & Plan Assessment/Plan (1) DEISI (acute kidney injury): (2) Hyperkalemia: (3) CKD (chronic kidney disease) stage 3, GFR 30-59 ml/min: PLAN: - nonoliguric, hypovolemic DEISI on CKD stage 3 multifactorial from volume depletion/dehydration and hydronephrosis status post left ureteral stent change on 03/05/2021. Creatinine peaked 11, BUN peaked 132, today SCr 9.08mg/dL. Patient is nonoliguric, no significant uremic symptoms. 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 Potassium and bicarb both have improved. We will discontinue low potassium diet restrictions. Continue on bicarb gtt. Obtain labs later today to monitor CO2 level and if above 20 mmol/L we can stop bicarb and keep on IVF for volume expansion for another day as appetite is poor. - CKD stge III, baseline creatinine is around 2.2 mg/dL. Patient's creatinine w as 2.2 mg/dL in December 2020. - Following with Dr. Hill, known to have hydronephrosis of left kidney. Noncontrast CT of abdomen and pelvis done on admission showed hydronephrosis left kidney. -Blood pressure is elevated, currently on hydralazine BID, will increase to TID -Urine culture pending, patient is on Zosyn.
--- NOTE | 2021-03-06 10:30 | PN.HOSP_ITS ---
Subjective Subjective Patient seen and examined. was by his bedside. He had no complaints but said he was trying to get him up. He is feeling better. Review of systems otherwise negative. He has remained hemodynamically stable. Blood cultures were ordered yesterday but have yet to be drawn. Hemoglobin is down to 6.7 today. Creatinine is also down to 9.08 today. Objective Data Objective Data Vital Signs: Vital Signs Temp Pulse Resp BP Pulse Ox 97.8 F 115 H 18 170/79 H 98 03/06/21 08:10 03/06/21 08:13 03/06/21 08:10 03/06/21 08:13 03/06/21 08:41 Oxygen Delivery Method Room Air Weight: 147 lb 4.301 oz Body Mass Index (BMI) 21.4 Intake & Output: Intake and Output for Last 24 Hours 03/04/21 03/05/21 03/06/21 23:59 23:59 23:59 Intake Total 1237.5 / 1237.5 3332.5 / 3332.5 1485.00 / 1485.00 Output Total 250 / 250 1125 / 1425 400 / 400 Balance 987.5 / 987.5 2207.5 / 1907.5 1085.00 / 1085.00 Lab / Micro Data Result Diagrams: 03/06/21 06:17 03/06/21 06:17 Labs: Laboratory Results - last 24 hr 03/05/21 11:46: Sodium 140, Potassium 5.2 H, Chloride 116 H, Carbon Dioxide 11.0 L, Anion Gap 13, BUN 116 H*, Creatinine 9.76 H*, Estim Creat Clear Calc 5.45, Est GFR (MDRD) Af Amer 7 L, Est GFR (MDRD) Non-Af 6 L, BUN/Creatinine Ratio 11.9, Glucose 104, Calcium 8.8 03/05/21 11:47: POC Glucose 106 03/05/21 16:17: POC Glucose 159 H 03/05/21 17:00: WBC 9.4, RBC 2.77 L, Hgb 7.5 L, Hct 22.9 L, MCV 82.7 D, MCH 27.1, MCHC 32.8 D, RDW Std Deviation 47.3 H, RDW Coeff of Darian 15.6 H, Plt Count 247, MPV 8.6, Immature Gran % (Auto) 0.600, Neut % (Auto) 89.9 H, Lymph % (Auto) 3.7 L, [place] % (Auto) 5.5, Eos % (Auto) 0.1, Baso % (Auto) 0.2, Absolute Neuts (auto) 8.5 H, Absolute Lymphs (auto) 0.35 L, Nucleated RBC % 0, Differential Comment SCANNED 03/05/21 20:45: Ur Random Sodium 72, Urine Creatinine 28.40 03/05/21 20:58: POC Glucose 143 H 03/06/21 06:17: Sodium 140, Potassium 3.6, Chloride 111 H, Carbon Dioxide 16.0 L , Anion Gap 13, BUN 103 H*, Creatinine 9.08 H*, Estim Creat Clear Calc 6.13, Est GFR (MDRD) Af Amer 7 L, Est GFR (MDRD) Non-Af 6 L, BUN/Creatinine Ratio 11.3, Glucose 136 H, Calcium 8.6 03/06/21 06:17: WBC 9.3, RBC 2.54 L, Hgb 6.7 L, Hct 21.1 L, MCV 83.1, MCH 26.4 L , MCHC 31.8 L, RDW Std Deviation 48.4 H, RDW Coeff of Darian 15.8 H, Plt Count 235, MPV 8.5, Immature Gran % (Auto) 0.900, Neut % (Auto) 84.4 H, Lymph % (Auto) 5.7 L, [place] % (Auto) 8.4, Eos % (Auto) 0.4, Baso % (Auto) 0.2, Absolute Neuts (auto) 7.8 H, Absolute Lymphs (auto) 0.53 L, Nucleated RBC % 0, Differential Comment S CANNED 03/06/21 06:58: POC Glucose 111 H 03/06/21 08:36: Crossmatch See Detail Micro: Microbiology 03/05/21 10:00 Other - Fluid Gram Stain - Final 03/05/21 07:35 Nasal Secretion SARS-CoV-2 Antigen (Rapid) - Final Radiography Diagnostic Testing: Radiology Impression Renal Ultrasound 03/05/21 05:55 IMPRESSION: Bilateral hydronephrosis right greater than left. Bilateral ureteral stents are seen. Right renal atrophy. Electronically Signed: Michael Cormier MD at 13:56 EST , Service support , Physical Exam Const alert, oriented x3 and no apparent distress Exam Limitations: no limitations HEENT head/scalp atraumatic Head and Scalp: normocephalic Eyes PERRL, EOMs intact bilaterally and conjunctivae normal Neck no lymphadenopathy Resp normal respiratory effort, no retractions, no use of accessory muscles and clear to auscultation bilaterally Cardio S1 normal heart sound, S2 normal heart sound and no murmurs Cardio Narrative: tachycardic GI normal to inspection, nondistended, normoactive bowel sounds, soft to palpation, non-tender and non-distended Extremity normal to inspection and no clubbing, cyanosis or edema Peripheral Pulses: Yes pulses 2+ throughout Skin no rashes or lesions noted Neuro oriented x3, CN's II-XII intact bilaterally and moves all extremities Sensorium / Orientation: awake and alert Psych affect normal Assessment & Plan Assessment/Plan (1) DEISI (acute kidney injury): (2) Complicated acute cystitis: PLAN: #DEISI on CKD 3B * Creatinine was up to 10.5 on admission; now down to 9.08 * Baseline is around 2.2. Patient being hydrated with IV fluids. Nephrology on board. * continue hydration with bicarb drip * #Non-anion gap metabolic acidosis due to DEISI on CKD stage IIIb * Bicarb is up to 16 today. Anion gap is 13. Likely due to DEISI on CKD. Nephrology on board. 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 * Culture sent and patient started on IV Zosyn. * Blood cultures and urine cultures pending. * Urology on board. * #Type 2 diabetes mellitus: On Lantus 10 units daily. Insulin sliding scale. Checks ACH S. #Anxiety and depression: on Remeron #Acute on chronic anemia: * Hemoglobin is down to 6.7 today. Likely due to hematuria on presentation * transfuse with 2 units of PRBCs. #History of colon and rectal cancer: S/p resection. Follow-up with oncology on outpatient basis. DVT prophylaxis: SCDs Charges/Coding Visit Charges Inpatient E&M: 52708 Subs Hosp L3
[2021-03-06] MEDS: 0.9% Saline Lock 10 ML Syringe IV (12:01)
[2021-03-06 12:05] LABS: Bedside Glucose 128 mg/dL (70-110)
--- NOTE | 2021-03-06 13:40 | NURSING ---
THIS RN REVIEWS CHARTING BY STUDENT NURSE Scotty VILLALBA. THIS RN AGREES WITH INFORMATION CHARTED.
[2021-03-06 16:31] LABS: Anion Gap 16 (5-15); BUN 97 mg/dL (7-18); BUN/Creat Ratio 11.5 RATIO (10-20); Calcium,Total 8.3 mg/dL (8.5-10.1); Chloride 106 mmol/L (98-107); Creatinine, Serum 8.46 mg/dL (0.70-1.30); EST Glomerular Filtration Rate 7 mL/min (>60); Est Glom Filt Rate - Afr Amer 8 mL/min (>60); Estimated Creatinine Clearance 6.58 ml/min; Glucose 124 mg/dL (74-106); Potassium 3.5 mmol/L (3.5-5.1); Sodium Level 141 mmol/L (136-145)
[2021-03-06 16:50] LABS: Bedside Glucose 121 mg/dL (70-110)
[2021-03-06] MEDS: Glucerna Shake 120 ML LIQUID PO ×2 (16:53→21:16)
[2021-03-06] MEDS: Mirtazapine 15 MG Tablet PO (21:17)
[2021-03-06 21:35] LABS: Bedside Glucose 138 mg/dL (70-110)
[2021-03-07] VITALS (12 sets, daily range): BP systolic 130–144; BP diastolic 65–76; PULSE 103–112; RESP 16–20; TEMP 36.7–37.3; O2SAT 96–99
[2021-03-07 06:02] LABS: Absolute Lymphocyte Count 0.56 X10^3/uL (0.83-4.51); Absolute Neutrophil Count 6.7 X10^3/uL (2.0-7.7); Basophil# 0.02 X10^3/uL; Basophil% 0.2 % (0-1); Eosinophil# 0.07 X10^3/uL; Eosinophils% 0.9 % (0-5); Hematocrit 25.2 % (40-54); Hemoglobin 8.1 g/dL (13.0-16.5); Lymphocyte # 0.56 X10^3/ul (0.83-4.51); Lymphocyte % 6.9 % (19-41); Mean Corp Hgb Conc 32.1 g/dL (32-36); Mean Corpuscular Hgb 26.6 pg (27.0-32.0); Mean Corpuscular Volume 82.6 fL (80-94); Monocyte# 0.75 X10^3/uL; Monocyte% 9.2 % (0-10); NRBC Flagged by Analyzer 0 % (0-5); Neutrophil % 82.2 % (47-70); POSITIVE DIFFERENTIAL YES; Platelet Count 229 K/mm3 (150-450); RBC Distribution Width CV 15.2 % (11.6-14.6); RBC Distribution Width SD 46.3 fl (35.1-43.9); Red Blood Count 3.05 M/mm3 (4.6-6.2); White Blood Count 8.2 K/mm3 (4.4-11.0)
[2021-03-07 06:07] LABS: Differential Indicated SCAN CRITERIA MET
[2021-03-07] MEDS: hydrALAZINE 50 MG Tablet PO ×3 (06:40→21:07)
[2021-03-07 06:42] LABS: Anisocytosis 1+
[2021-03-07 06:44] LABS: Anion Gap 12 (5-15); BUN 91 mg/dL (7-18); BUN/Creat Ratio 11.2 RATIO (10-20); Calcium,Total 8.1 mg/dL (8.5-10.1); Chloride 107 mmol/L (98-107); Creatinine, Serum 8.09 mg/dL (0.70-1.30); EST Glomerular Filtration Rate 7 mL/min (>60); Est Glom Filt Rate - Afr Amer 8 mL/min (>60); Estimated Creatinine Clearance 6.75 ml/min; Glucose 155 mg/dL (74-106); Sodium Level 141 mmol/L (136-145)
[2021-03-07 06:46] LABS: Bedside Glucose 139 mg/dL (70-110)
[2021-03-07] MEDS: Piperacil/Tazobactam 3.375 GM/50 ML ML IV ×2 (09:13→21:08)
[2021-03-07] MEDS: Glucerna Shake 120 ML LIQUID PO ×4 (09:14→21:07)
[2021-03-07] MEDS: Tamsulosin HCl 0.4 MG Capsule PO (09:14)
[2021-03-07] MEDS: Potassium Chloride Oral Tablet 20 MEQ 60 MEQ PO (09:14)
[2021-03-07] MEDS: Sodium Bicarbonate 650 MG Tablet PO ×2 (09:14→21:08)
--- NOTE | 2021-03-07 09:44 | PN.RENAL_ITS ---
Subjective Subjective Following for DEISI on CKD No overnight events. at bedside. Patient reports appetite is still poor, denies any nausea or diarrhea. Objective Data Objective Data Vital Signs: Vital Signs Temp Pulse Resp BP Pulse Ox 98.1 F 112 H 16 144/75 H 97 03/07/21 09:12 03/07/21 09:12 03/07/21 09:12 03/07/21 09:12 03/07/21 09:12 Oxygen Delivery Method Room Air Weight: 65.5 kg Body Mass Index (BMI) 21.4 Intake & Output: Intake and Output for Last 24 Hours 03/05/21 03/06/21 03/07/21 23:59 23:59 23:59 Intake Total 3332.5 / 3332.5 4086.67 / 4086.67 1168.33 / 1168.33 Output Total 1125 / 1425 3000 / 3000 550 / 550 Balance 2207.5 / 1907.5 1086.67 / 1086.67 618.33 / 618.33 Medical Nutrition Assessment Dietitian: Malnutrition Criteria Met Start: 03/06/21 14:14 Freq: Status: Active Protocol: Document 03/06/21 14:14 AG (Rec: 03/06/21 14:14 [id number]) Nutrition Malnutrition Evidence of Malnutrition Exists Yes Malnutrition (severe): Chronic Evidenced By Suboptimal Energy Intake ( Severe),Weight Loss (Severe) Intake Problem Inadequate Oral Intake Etiology r/t poor appetite Signs/Symptoms as evidenced by family reports of 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, 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 intake meeting <50% of estimated energy needs x 3 weeks Status Active Problem Clinical Problem Chronic Disease or Condition Related Malnutrition Etiology severe, chronic malnutrition r /t decreased energy intake w/ increased energy needs d/t cancer Signs/Symptoms as evidenced by 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 intake meeting <50% of estimated energy needs x 3 weeks, 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 wt loss of 19.3#/12% x 3 months Status Active Problem Altered Nutrient-Related Laboratory Values Etiology r/t DEISI on CKD Signs/Symptoms as evidenced by BUN 103, creatinine 9.08 Status Active Problem Recommendation Dietitian Recommendations/Changes regular diet as tolerated; if renal function declines further, will restriction potassium/phos/sodium as appropriate. Will add 120mL glucerna ONS 4x/day w/ medpass d/t malnutrition. Lab / Micro Data Result Diagrams: 03/07/21 04:54 03/07/21 04:54 Labs: Laboratory Results - last 24 hr 03/06/21 08:36: Blood Type O POSITIVE, Antibody Screen NEGATIVE, Crossmatch See Detail 03/06/21 11:23: POC Glucose 128 H 03/06/21 15:09: Sodium 141, Potassium 3.5, Chloride 106, Carbon Dioxide 19.0 L, Anion Gap 16 H, BUN 97 H, Creatinine 8.46 H*, Estim Creat Clear Calc 6.58, Est GFR (MDRD) Af Amer 8 L, Est GFR (MDRD) Non-Af 7 L, BUN/Creatinine Ratio 11.5, Glucose 124 H, Calcium 8.3 L 03/06/21 16:27: POC Glucose 121 H 03/06/21 21:13: POC Glucose 138 H 03/07/21 04:54: WBC 8.2, RBC 3.05 L, Hgb 8.1 L, Hct 25.2 L, MCV 82.6, MCH 26.6 L , MCHC 32.1, RDW Std Deviation 46.3 H, RDW Coeff of Darian 15.2 H, Plt Count 229, MPV 9.0, Immature Gran % (Auto) 0.600, Neut % (Auto) 82.2 H, Lymph % (Auto) 6.9 L, [place] % (Auto) 9.2, Eos % (Auto) 0.9, Baso % (Auto) 0.2, Absolute Neuts (auto) 6.7, Absolute Lymphs (auto) 0.56 L, Nucleated RBC % 0, Anisocytosis 1+ 03/07/21 04:54: Sodium 141, Potassium 3.0 L, Chloride 107, Carbon Dioxide 22.0, Anion Gap 12, BUN 91 H, Creatinine 8.09 H*, Estim Creat Clear Calc 6.75, Est GFR (MDRD) Af Amer 8 L, Est GFR (MDRD) Non-Af 7 L, BUN/Creatinine Ratio 11.2, Glucose 155 H, Calcium 8.1 L 03/07/21 06:35: POC Glucose 139 H Micro: Microbiology 03/05/21 10:00 Urine, Cystoscopy Urine Culture - Preliminary Klebsiella pneumoniae sp pneum Yeast 03/05/21 10:00 Other - Fluid Gram Stain - Final 03/05/21 07:35 Nasal Secretion SARS-CoV-2 Antigen (Rapid) - Final Physical Exam Narrative Const: Alert and oriented, no acute distress Cardio: S1, S2, rhythm rate regular Respiratory: Lung sounds clear anteriorly posteriorly, no wheeze rhonchi rales noted GI: Abdomen soft, positive bowel sounds : Indwelling [place] with clear urine in bag Extremities: No pitting edema noted bilateral lower legs or arms Assessment & Plan Assessment/Plan (1) DEISI (acute kidney injury): (2) Hyperkalemia: (3) CKD (chronic kidney disease) stage 3, GFR 30-59 ml/min: PLAN: - nonoliguric, hypovolemic DEISI on CKD stage 3 multifactorial from volume depletion/dehydration and hydronephrosis status post left ureteral stent change on 03/05/2021. Creatinine peaked 11/ BUN peaked 132, today SCr 8.09mg/dL. Patient is nonoliguric, no significant uremic symptoms. 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 Potassium and bicarb both have improved. Replace potassium. Discontinue bicarb drip. Keep on IV fluids for another day for volume expansion as appetite is still very poor. Patient does not need any diet restrictions. Continue protein supplement. - CKD stge III, baseline creatinine is around 2.2 mg/dL. Patient's creatinine was 2.2 mg/dL in December 2020. - Following with Dr. Hill, known to have hydronephrosis of left kidney. Noncontrast CT of abdomen and pelvis done on admission showed hydronephrosis left kidney. -Blood pressure improved with increase hydralazine to TID -Urine culture Klebsiella pneumoniae, patient is on Zosyn. - Hemoglobin improved to 8.1 post PRBC
[2021-03-07] MEDS: 0.45% Normal Saline 1,000 ML 100 ML IV ×2 (10:41→21:08)
[2021-03-07] MEDS: 0.9% Saline Lock 10 ML Syringe IV ×2 (10:43→21:07)
[2021-03-07] MEDS: Insulin Lispro 100 UNIT/ML INSULN.PEN SC (11:32)
[2021-03-07 12:00] LABS: Bedside Glucose 194 mg/dL (70-110)
--- NOTE | 2021-03-07 12:24 | CASEMGMT ---
Addendum entered by Anna Fuentes 03/07/21 13:36: Patient's insurance is waiving pre-certifications. Anna FREEDMAN Original Note: SW spoke with patient and his . They both agree patient wants to go to [facility]. SW answered their questions. They would like to know patient's exact SNF benefits. SW will call and let them know. Anna FREEDMAN
--- NOTE | 2021-03-07 12:41 | PN.HOSP_ITS ---
Subjective Subjective Patient seen and examined. He had no active complaints and felt well today. REview of systems is otherwise negative. Cr is 8.09 today. Objective Data Objective Data Vital Signs: Vital Signs Temp Pulse Resp BP Pulse Ox 98.1 F 112 H 16 144/75 H 97 03/07/21 09:12 03/07/21 09:12 03/07/21 09:12 03/07/21 09:12 03/07/21 09:12 Oxygen Delivery Method Room Air Weight: 144 lb 6.444 oz Body Mass Index (BMI) 21.4 Intake & Output: Intake and Output for Last 24 Hours 03/05/21 03/06/21 03/07/21 23:59 23:59 23:59 Intake Total 3332.5 / 3332.5 4086.67 / 4086.67 2833.33 / 2833.33 Output Total 1125 / 1425 3000 / 3000 1450 / 1450 Balance 2207.5 / 1907.5 1086.67 / 1086.67 1383.33 / 1383.33 Medical Nutrition Assessment Dietitian: Malnutrition Criteria Met Start: 03/06/21 14:14 Freq: Status: Active Protocol: Document 03/06/21 14:14 AG (Rec: 03/06/21 14:14 [id number]) Nutrition Malnutrition Evidence of Malnutrition Exists Yes Malnutrition (severe): Chronic Evidenced By Suboptimal Energy Intake ( Severe),Weight Loss (Severe) Intake Problem Inadequate Oral Intake Etiology r/t poor appetite Signs/Symptoms as evidenced by family reports of 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, 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 intake meeting <50% of estimated energy needs x 3 weeks Status Active Problem Clinical Problem Chronic Disease or Condition Related Malnutrition Etiology severe, chronic malnutrition r /t decreased energy intake w/ increased energy needs d/t cancer Signs/Symptoms as evidenced by 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 intake meeting <50% of estimated energy needs x 3 weeks, 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 wt loss of 19.3#/12% x 3 months Status Active Problem Altered Nutrient-Related Laboratory Values Etiology r/t DEISI on CKD Signs/Symptoms as evidenced by BUN 103, creatinine 9.08 Status Active Problem Recommendation Dietitian Recommendations/Changes regular diet as tolerated; if renal function declines further, will restriction potassium/phos/sodium as appropriate. Will add 120mL glucerna ONS 4x/day w/ medpass d/t malnutrition. Lab / Micro Data Result Diagrams: 03/07/21 04:54 03/07/21 04:54 Labs: Laboratory Results - last 24 hr 03/06/21 08:36: Blood Type O POSITIVE, Antibody Screen NEGATIVE, Crossmatch See Detail 03/06/21 15:09: Sodium 141, Potassium 3.5, Chloride 106, Carbon Dioxide 19.0 L, Anion Gap 16 H, BUN 97 H, Creatinine 8.46 H*, Estim Creat Clear Calc 6.58, Est GFR (MDRD) Af Amer 8 L, Est GFR (MDRD) Non-Af 7 L, BUN/Creatinine Ratio 11.5, Glucose 124 H, Calcium 8.3 L 03/06/21 16:27: POC Glucose 121 H 03/06/21 21:13: POC Glucose 138 H 03/07/21 04:54: WBC 8.2, RBC 3.05 L, Hgb 8.1 L, Hct 25.2 L, MCV 82.6, MCH 26.6 L , MCHC 32.1, RDW Std Deviation 46.3 H, RDW Coeff of Darian 15.2 H, Plt Count 229, MPV 9.0, Immature Gran % (Auto) 0.600, Neut % (Auto) 82.2 H, Lymph % (Auto) 6.9 L, [place] % (Auto) 9.2, Eos % (Auto) 0.9, Baso % (Auto) 0.2, Absolute Neuts (auto) 6.7, Absolute Lymphs (auto) 0.56 L, Nucleated RBC % 0, Anisocytosis 1+ 03/07/21 04:54: Sodium 141, Potassium 3.0 L, Chloride 107, Carbon Dioxide 22.0, Anion Gap 12, BUN 91 H, Creatinine 8.09 H*, Estim Creat Clear Calc 6.75, Est GFR (MDRD) Af Amer 8 L, Est GFR (MDRD) Non-Af 7 L, BUN/Creatinine Ratio 11.2, Glucose 155 H, Calcium 8.1 L 03/07/21 06:35: POC Glucose 139 H 03/07/21 11:31: POC Glucose 194 H Micro: Microbiology 03/05/21 10:00 Urine, Cystoscopy Urine Culture - Preliminary Klebsiella pneumoniae sp pneum Yeast 03/05/21 10:00 Other - Fluid Gram Stain - Final 03/05/21 07:35 Nasal Secretion SARS-CoV-2 Antigen (Rapid) - Final Physical Exam Const alert, oriented x3 and no apparent distress Exam Limitations: no limitations HEENT head/scalp atraumatic Head and Scalp: normocephalic Eyes PERRL, EOMs intact bilaterally and conjunctivae normal Neck no lymphadenopathy Resp normal respiratory effort, no retractions, no use of accessory muscles and clear to auscultation bilaterally Cardio S1 normal heart sound, S2 normal heart sound and no murmurs Cardio Narrative: tachycardic GI normal to inspection, nondistended, normoactive bowel sounds, soft to palpation, non-tender and non-distended Extremity normal to inspection, full ROM and no clubbing, cyanosis or edema Peripheral Pulses: Yes pulses 2+ throughout Skin no rashes or lesions noted Neuro oriented x3, CN's II-XII intact bilaterally and moves all extremities Sensorium / Orientation: awake and alert Psych affect normal Assessment & Plan Assessment/Plan (1) DEISI (acute kidney injury): (2) Complicated acute cystitis: PLAN: #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 * Baseline is around 2.2. Patient being hydrated with IV fluids. Nephrology on board. * continue hydration with bicarb drip * #Non-anion gap metabolic acidosis due to DEISI on CKD stage IIIb * resolved. 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 * Culture sent and patient started on IV Zosyn. * urine culture growing klebsiella pneumoniae and yeast. * Blood cultures ordered; doesnt appear to have been drawn. * Urology on board. * #Type 2 diabetes mellitus: On Lantus 10 units daily. Insulin sliding scale. Checks ACH S. #Anxiety and depression: on Remeron #Acute on chronic anemia: * Hemoglobin is down to 6.7 today. Likely due to hematuria on presentation * Hb today is 8.1. #History of colon and rectal cancer: S/p resection. Follow-up with oncology on outpatient basis. DVT prophylaxis: SCDs Charges/Coding Visit Charges Inpatient E&M: 07623 Subs Hosp L2
--- NOTE | 2021-03-07 14:26 | CASEMGMT ---
Patient and his asked SW to check patient's SNF benefits. SW called insurance and his SNF coverage is as follows: Days 1-10 covered at 100% days 11-20 daily co-pay of $25 and days 21-100 daily co-pay of $50. SW wrote down this information and gave it to patient. SW also went over it with patient. Plan: d/c to [facility] when medically ready. Anna FREEDMAN
[2021-03-07 17:05] LABS: Bedside Glucose 106 mg/dL (70-110)
[2021-03-07] MEDS: Mirtazapine 15 MG Tablet PO (21:07)
[2021-03-08] VITALS (10 sets, daily range): BP systolic 124–137; BP diastolic 53–69; PULSE 83–102; RESP 16; TEMP 36.4–37.5; O2SAT 94–98
[2021-03-08] MEDS: hydrALAZINE 50 MG Tablet PO ×3 (06:23→22:14)
[2021-03-08] MEDS: 0.45% Normal Saline 1,000 ML 100 ML IV ×2 (06:23→16:37)
[2021-03-08 06:45] LABS: Bedside Glucose 99 mg/dL (70-110)
[2021-03-08] MEDS: Piperacil/Tazobactam 3.375 GM/50 ML ML IV ×2 (08:56→22:15)
[2021-03-08] MEDS: Sodium Bicarbonate 650 MG Tablet PO ×2 (08:56→22:15)
[2021-03-08] MEDS: Tamsulosin HCl 0.4 MG Capsule PO (08:56)
[2021-03-08] MEDS: Glucerna Shake 120 ML LIQUID PO ×4 (08:56→22:30)
[2021-03-08 08:57] LABS: Absolute Lymphocyte Count 0.72 X10^3/uL (0.83-4.51); Absolute Neutrophil Count 5.7 X10^3/uL (2.0-7.7); Basophil# 0.04 X10^3/uL; Basophil% 0.5 % (0-1); Eosinophil# 0.21 X10^3/uL; Eosinophils% 2.8 % (0-5); Hematocrit 26.3 % (40-54); Hemoglobin 8.4 g/dL (13.0-16.5); Lymphocyte # 0.72 X10^3/ul (0.83-4.51); Lymphocyte % 9.6 % (19-41); Mean Corp Hgb Conc 31.9 g/dL (32-36); Mean Corpuscular Hgb 27.3 pg (27.0-32.0); Mean Corpuscular Volume 85.4 fL (80-94); Mean Platelet Vol. 8.9 fl (6.2-12.0); Monocyte# 0.78 X10^3/uL; Monocyte% 10.4 % (0-10); NRBC Flagged by Analyzer 0 % (0-5); Neutrophil # 5.71 X10^3/uL (2.7-7.7); Platelet Count 204 K/mm3 (150-450); RBC Distribution Width CV 15.3 % (11.6-14.6); RBC Distribution Width SD 47.2 fl (35.1-43.9); Red Blood Count 3.08 M/mm3 (4.6-6.2); White Blood Count 7.5 K/mm3 (4.4-11.0)
[2021-03-08 09:17] LABS: Anion Gap 13 (5-15); BUN 71 mg/dL (7-18); BUN/Creat Ratio 10.4 RATIO (10-20); Chloride 106 mmol/L (98-107); EST Glomerular Filtration Rate 8 mL/min (>60); Est Glom Filt Rate - Afr Amer 10 mL/min (>60); Estimated Creatinine Clearance 8.38 ml/min; Glucose 100 mg/dL (74-106); Potassium 3.3 mmol/L (3.5-5.1); Sodium Level 139 mmol/L (136-145)
--- NOTE | 2021-03-08 09:32 | PCM.PN.REN ---
Subjective Subjective Following for DEISI on CKD. The patient still has poor appetite. He denies chest pain, shortness of breath, or nausea. There has been no diarrhea. Objective Data Objective Data Vital Signs: Vital Signs Temp Pulse Resp BP Pulse Ox 98.1 F 101 H 16 137/68 H 98 03/08/21 09:00 03/08/21 09:00 03/08/21 09:00 03/08/21 09:00 03/08/21 09:00 Oxygen Delivery Method Room Air Weight: 68.9 kg Body Mass Index (BMI) 21.4 Intake & Output: Intake and Output for Last 24 Hours 03/06/21 03/07/21 03/08/21 23:59 23:59 23:59 Intake Total 4086.67 / 4086.67 4463.33 / 4463.33 975 / 975 Output Total 3000 / 3000 2275 / 2275 600 / 600 Balance 1086.67 / 1086.67 2188.33 / 2188.33 375 / 375 Medical Nutrition Assessment Dietitian: Malnutrition Criteria Met Start: 03/06/21 14:14 Freq: Status: Active Protocol: Document 03/06/21 14:14 AG (Rec: 03/06/21 14:14 [id number]) Nutrition Malnutrition Evidence of Malnutrition Exists Yes Malnutrition (severe): Chronic Evidenced By Suboptimal Energy Intake ( Severe),Weight Loss (Severe) Intake Problem Inadequate Oral Intake Etiology r/t poor appetite Signs/Symptoms as evidenced by family reports of 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, 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 intake meeting <50% of estimated energy needs x 3 weeks Status Active Problem Clinical Problem Chronic Disease or Condition Related Malnutrition Etiology severe, chronic malnutrition r /t decreased energy intake w/ increased energy needs d/t cancer Signs/Symptoms as evidenced by 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 intake meeting <50% of estimated energy needs x 3 weeks, 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 wt loss of 19.3#/12% x 3 months Status Active Problem Altered Nutrient-Related Laboratory Values Etiology r/t DEISI on CKD Signs/Symptoms as evidenced by BUN 103, creatinine 9.08 Status Active Problem Recommendation Dietitian Recommendations/Changes regular diet as tolerated; if renal function declines further, will restriction potassium/phos/sodium as appropriate. Will add 120mL glucerna ONS 4x/day w/ medpass d/t malnutrition. Lab / Micro Data Result Diagrams: 03/08/21 08:07 03/08/21 08:07 Labs: Laboratory Results - last 24 hr 03/07/21 11:31: POC Glucose 194 H 03/07/21 16:26: POC Glucose 106 03/08/21 06:23: POC Glucose 99 03/08/21 08:07: WBC 7.5, RBC 3.08 L, Hgb 8.4 L, Hct 26.3 L, MCV 85.4, MCH 27.3, MCHC 31.9 L, RDW Std Deviation 47.2 H, RDW Coeff of Darian 15.3 H, Plt Count 204, MPV 8.9, Immature Gran % (Auto) 0.700, Neut % (Auto) 76.0 H, Lymph % (Auto) 9.6 L, [place] % (Auto) 10.4 H, Eos % (Auto) 2.8, Baso % (Auto) 0.5, Absolute Neuts (auto) 5.7, Absolute Lymphs (auto) 0.72 L, Nucleated RBC % 0 03/08/21 08:07: Sodium 139, Potassium 3.3 L, Chloride 106, Carbon Dioxide 20.0 L, Anion Gap 13, BUN 71 H, Creatinine 6.80 H, Estim Creat Clear Calc 8.38, Est GFR (MDRD) Af Amer 10 L, Est GFR (MDRD) Non-Af 8 L, BUN/Creatinine Ratio 10.4, Glucose 100, Calcium 8.0 L Micro: Microbiology 03/05/21 10:00 Urine, Cystoscopy Urine Culture - Final Klebsiella pneumoniae sp pneum Yeast, not Zoila albicans 03/05/21 10:00 Other - Fluid Gram Stain - Final 03/05/21 07:35 Nasal Secretion SARS-CoV-2 Antigen (Rapid) - Final Physical Exam Narrative Const: Alert and oriented, no acute distress Cardio: Normal S1, S2, rhythm regular Respiratory: Lung sounds clear anteriorly posteriorly, no wheeze rhonchi rales noted GI: Abdomen soft, positive bowel sounds : Indwelling Judd with clear urine in bag Extremities: No pitting edema noted bilateral lower legs or arms Assessment & Plan Assessment/Plan (1) DEISI (acute kidney injury): PLAN: - nonoliguric, hypovolemic DEISI on CKD stage 3 multifactorial from volume depletion/dehydration and obstruction (hydronephrosis status post left ureteral stent change on 03/05/2021). Creatinine peaked 11.00 mg/dL on 03/04/2021, today SCr 6.80 mg/dL. -Renal function is continuing to improve. -Patient is nonoliguric, no significant uremic symptoms. 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 (2) CKD (chronic kidney disease) stage 3, GFR 30-59 ml/min: PLAN: - CKD stge III, baseline creatinine is around 2.2 mg/dL. Patient's creatinine was 2.2 mg/dL in December 2020. - Following with Dr. Hill, known to have hydronephrosis of left kidney. Noncontrast CT of abdomen and pelvis done on admission showed hydronephrosis left kidney. (3) Hypokalemia: PLAN: -Potassium level has been low over the last 2 days. There is no diarrhea. We will continue to replace potassium deficit. -Potassium level was initially high but improved with improving renal function and bicarbonate drip. -Bicarbonate drip was stopped yesterday on 03/07/2021. -Hypokalemia is likely due to recovering renal function, lack of intake, and renal wasting of potassium as obstruction has been relieved. -Recheck potassium and magnesium level in a.m. (4) Metabolic acidosis: PLAN: - Serum bicarbonate level is 20 mmol/L. We will watch for now. There is no need to increase supplemental sodium bicarbonate. (5) Hypertension: PLAN: - BP is under control on hydralazine. No need to change doses today.
[2021-03-08] MEDS: Potassium Chloride Oral Tablet 20 MEQ 40 MEQ PO (10:00)
[2021-03-08 11:50] LABS: Bedside Glucose 103 mg/dL (70-110)
--- NOTE | 2021-03-08 12:33 | PN.HOSP_ITS ---
Subjective Subjective Patient seen and examined. was by his bedside. He had no complaints and had an uneventful night. Review of systems otherwise negative. Creatinine today is down 6.8 and potassium is 3.3. Bicarb is 20. Objective Data Objective Data Vital Signs: Vital Signs Temp Pulse Resp BP Pulse Ox 98.1 F 101 H 16 137/68 H 98 03/08/21 09:00 03/08/21 09:00 03/08/21 09:00 03/08/21 09:00 03/08/21 09:00 Oxygen Delivery Method Room Air Weight: 151 lb 14.376 oz Body Mass Index (BMI) 21.4 Intake & Output: Intake and Output for Last 24 Hours 03/06/21 03/07/21 03/08/21 23:59 23:59 23:59 Intake Total 4086.67 / 4086.67 4463.33 / 4463.33 1335 / 1335 Output Total 3000 / 3000 2275 / 2275 1450 / 1450 Balance 1086.67 / 1086.67 2188.33 / 2188.33 -115 / -115 Medical Nutrition Assessment Dietitian: Malnutrition Criteria Met Start: 03/06/21 14:14 Freq: Status: Active Protocol: Document 03/06/21 14:14 AG (Rec: 03/06/21 14:14 [id number]) Nutrition Malnutrition Evidence of Malnutrition Exists Yes Malnutrition (severe): Chronic Evidenced By Suboptimal Energy Intake ( Severe),Weight Loss (Severe) Intake Problem Inadequate Oral Intake Etiology r/t poor appetite Signs/Symptoms as evidenced by family reports of 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, 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 intake meeting <50% of estimated energy needs x 3 weeks Status Active Problem Clinical Problem Chronic Disease or Condition Related Malnutrition Etiology severe, chronic malnutrition r /t decreased energy intake w/ increased energy needs d/t cancer Signs/Symptoms as evidenced by 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 intake meeting <50% of estimated energy needs x 3 weeks, 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 wt loss of 19.3#/12% x 3 months Status Active Problem Altered Nutrient-Related Laboratory Values Etiology r/t DEISI on CKD Signs/Symptoms as evidenced by BUN 103, creatinine 9.08 Status Active Problem Recommendation Dietitian Recommendations/Changes regular diet as tolerated; if renal function declines further, will restriction potassium/phos/sodium as appropriate. Will add 120mL glucerna ONS 4x/day w/ medpass d/t malnutrition. Lab / Micro Data Result Diagrams: 03/08/21 08:07 03/08/21 08:07 Labs: Laboratory Results - last 24 hr 03/07/21 16:26: POC Glucose 106 03/08/21 06:23: POC Glucose 99 03/08/21 08:07: WBC 7.5, RBC 3.08 L, Hgb 8.4 L, Hct 26.3 L, MCV 85.4, MCH 27.3, MCHC 31.9 L, RDW Std Deviation 47.2 H, RDW Coeff of Darian 15.3 H, Plt Count 204, MPV 8.9, Immature Gran % (Auto) 0.700, Neut % (Auto) 76.0 H, Lymph % (Auto) 9.6 L, [place] % (Auto) 10.4 H, Eos % (Auto) 2.8, Baso % (Auto) 0.5, Absolute Neuts (auto) 5.7, Absolute Lymphs (auto) 0.72 L, Nucleated RBC % 0 03/08/21 08:07: Sodium 139, Potassium 3.3 L, Chloride 106, Carbon Dioxide 20.0 L , Anion Gap 13, BUN 71 H, Creatinine 6.80 H, Estim Creat Clear Calc 8.38, Est GFR (MDRD) Af Amer 10 L, Est GFR (MDRD) Non-Af 8 L, BUN/Creatinine Ratio 10.4, Glucose 100, Calcium 8.0 L 03/08/21 11:38: POC Glucose 103 Micro: Microbiology 03/05/21 10:00 Urine, Cystoscopy Urine Culture - Final Klebsiella pneumoniae sp pneum Yeast, not Zoila albicans 03/05/21 10:00 Other - Fluid Gram Stain - Final 03/05/21 07:35 Nasal Secretion SARS-CoV-2 Antigen (Rapid) - Final Physical Exam Const alert, oriented x3 and no apparent distress Exam Limitations: no limitations HEENT head/scalp atraumatic Head and Scalp: normocephalic Eyes PERRL, EOMs intact bilaterally and conjunctivae normal Neck no lymphadenopathy Resp normal respiratory effort, no retractions, no use of accessory muscles and clear to auscultation bilaterally Cardio S1 normal heart sound, S2 normal heart sound and no murmurs Cardio Narrative: mildly tachycardic GI normal to inspection, nondistended, normoactive bowel sounds, soft to palpation, non-tender and non-distended Extremity normal to inspection, full ROM and no clubbing, cyanosis or edema Peripheral Pulses: Yes pulses 2+ throughout Skin no rashes or lesions noted Neuro oriented x3, CN's II-XII intact bilaterally and moves all extremities Sensorium / Orientation: awake and alert Psych affect normal Assessment & Plan Assessment/Plan (1) DEISI (acute kidney injury): (2) Complicated acute cystitis: PLAN: #DEISI on CKD 3B * CR now down to 6.80 * Baseline is around 2.2. Patient being hydrated with IV fluids. Nephrology on board. * * #Non-anion gap metabolic acidosis due to DEISI on CKD stage IIIb * bicarb today is 20. Will monitor * #Hypokalemia; K is 3.3 today. Will replace and trend. 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 * Culture sent and patient started on IV zosyn. * urine culture growing klebsiella pneumoniae and yeast. * Blood cultures pending. * Urology on board. * #Type 2 diabetes mellitus: On Lantus 10 units daily. Insulin sliding scale. Checks ACH S. #Anxiety and depression: on Remeron #Acute on chronic anemia: * s/p transfusion of 2 units of PRBCs. Hb today is 8.4. Likely due to hematuria on admission. #History of colon and rectal cancer: S/p resection. Follow-up with oncology on outpatient basis. DVT prophylaxis: SCDs Charges/Coding Visit Charges Inpatient E&M: 89466 Subs Hosp L2
[2021-03-08] MEDS: Acetaminophen 325 MG Tablet 650 MG PO (15:01)
[2021-03-08] MEDS: Mirtazapine 15 MG Tablet PO (22:15)
[2021-03-09] VITALS (13 sets, daily range): BP systolic 125–158; BP diastolic 62–75; PULSE 95–109; RESP 16–18; TEMP 37.1–37.3; O2SAT 95–99
[2021-03-09 00:40] LABS: Bedside Glucose 85 mg/dL (70-110)
[2021-03-09] MEDS: 0.45% Normal Saline 1,000 ML 100 ML IV (02:41)
[2021-03-09] MEDS: hydrALAZINE 50 MG Tablet PO ×3 (06:27→21:04)
[2021-03-09] MEDS: Acetaminophen 325 MG Tablet 650 MG PO (06:28)
[2021-03-09 07:01] LABS: Bedside Glucose 99 mg/dL (70-110)
[2021-03-09 07:57] LABS: Absolute Lymphocyte Count 0.81 X10^3/uL (0.83-4.51); Absolute Neutrophil Count 5.5 X10^3/uL (2.0-7.7); Basophil# 0.04 X10^3/uL; Basophil% 0.5 % (0-1); Eosinophil# 0.19 X10^3/uL; Eosinophils% 2.6 % (0-5); Hematocrit 26.8 % (40-54); Hemoglobin 8.3 g/dL (13.0-16.5); Lymphocyte # 0.81 X10^3/ul (0.83-4.51); Lymphocyte % 10.9 % (19-41); Mean Corpuscular Hgb 26.8 pg (27.0-32.0); Mean Corpuscular Volume 86.5 fL (80-94); Mean Platelet Vol. 9.1 fl (6.2-12.0); Monocyte% 10.8 % (0-10); NRBC Flagged by Analyzer 0 % (0-5); Neutrophil # 5.53 X10^3/uL (2.7-7.7); Neutrophil % 74.5 % (47-70); Platelet Count 203 K/mm3 (150-450); RBC Distribution Width CV 15.1 % (11.6-14.6); RBC Distribution Width SD 48.1 fl (35.1-43.9); White Blood Count 7.4 K/mm3 (4.4-11.0)
[2021-03-09 08:17] LABS: BUN 57 mg/dL (7-18); BUN/Creat Ratio 9.8 RATIO (10-20); Calcium,Total 7.6 mg/dL (8.5-10.1); Chloride 108 mmol/L (98-107); Creatinine, Serum 5.81 mg/dL (0.70-1.30); EST Glomerular Filtration Rate 10 mL/min (>60); Est Glom Filt Rate - Afr Amer 12 mL/min (>60); Estimated Creatinine Clearance 9.81 ml/min; Glucose 111 mg/dL (74-106); Magnesium 1.7 mg/dL (1.6-2.6); Phosphorus 5.4 mg/dL (2.5-4.9); Potassium 3.6 mmol/L (3.5-5.1); Sodium Level 140 mmol/L (136-145)
--- NOTE | 2021-03-09 10:06 | PN.RENAL_ITS ---
Subjective Subjective Following for DEISI on CKD. The patient complains of back and feet pain. He also has subjective swelling of the feet bilaterally. The patient denies chest pain, shortness of breath, or nausea. Appetite is still poor per the patient's . Objective Data Objective Data Vital Signs: Vital Signs Temp Pulse Resp BP Pulse Ox 98.7 F 109 H 16 144/62 H 98 03/09/21 09:34 03/09/21 09:34 03/09/21 09:34 03/09/21 09:34 03/09/21 09:34 Oxygen Delivery Method Room Air Weight: 70.5 kg Body Mass Index (BMI) 21.4 Intake & Output: Intake and Output for Last 24 Hours 03/07/21 03/08/21 03/09/21 23:59 23:59 23:59 Intake Total 4463.33 / 4463.33 2745 / 2745 1050 / 1050 Output Total 2275 / 2275 2000 / 2100 1600 / 1600 Balance 2188.33 / 2188.33 745 / 645 -550 / -550 Medical Nutrition Assessment Dietitian: Malnutrition Criteria Met Start: 03/06/21 14:14 Freq: Status: Active Protocol: Document 03/06/21 14:14 AG (Rec: 03/06/21 14:14 [id number]) Nutrition Malnutrition Evidence of Malnutrition Exists Yes Malnutrition (severe): Chronic Evidenced By Suboptimal Energy Intake ( Severe),Weight Loss (Severe) Intake Problem Inadequate Oral Intake Etiology r/t poor appetite Signs/Symptoms as evidenced by family reports of 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, 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 intake meeting <50% of estimated energy needs x 3 weeks Status Active Problem Clinical Problem Chronic Disease or Condition Related Malnutrition Etiology severe, chronic malnutrition r /t decreased energy intake w/ increased energy needs d/t cancer Signs/Symptoms as evidenced by 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 intake meeting <50% of estimated energy needs x 3 weeks, 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 wt loss of 19.3#/12% x 3 months Status Active Problem Altered Nutrient-Related Laboratory Values Etiology r/t DEISI on CKD Signs/Symptoms as evidenced by BUN 103, creatinine 9.08 Status Active Problem Recommendation Dietitian Recommendations/Changes regular diet as tolerated; if renal function declines further, will restriction potassium/phos/sodium as appropriate. Will add 120mL glucerna ONS 4x/day w/ medpass d/t malnutrition. Lab / Micro Data Result Diagrams: 03/09/21 07:25 03/09/21 07:25 Labs: Laboratory Results - last 24 hr 03/08/21 11:38: POC Glucose 103 03/08/21 22:11: POC Glucose 85 03/09/21 06:19: POC Glucose 99 03/09/21 07:25: WBC 7.4, RBC 3.10 L, Hgb 8.3 L, Hct 26.8 L, MCV 86.5, MCH 26.8 L , MCHC 31.0 L, RDW Std Deviation 48.1 H, RDW Coeff of Darian 15.1 H, Plt Count 203, MPV 9.1, Immature Gran % (Auto) 0.700, Neut % (Auto) 74.5 H, Lymph % (Auto) 10.9 L, [place] % (Auto) 10.8 H, Eos % (Auto) 2.6, Baso % (Auto) 0.5, Absolute Neuts (auto) 5.5, Absolute Lymphs (auto) 0.81 L, Nucleated RBC % 0 03/09/21 07:25: Sodium 140, Potassium 3.6, Chloride 108 H, Carbon Dioxide 20.0 L , BUN 57 H, Creatinine 5.81 H, Estim Creat Clear Calc 9.81, Est GFR (MDRD) Af Amer 12 L, Est GFR (MDRD) Non-Af 10 L, BUN/Creatinine Ratio 9.8 L, Glucose 111 H , Calcium 7.6 L, Phosphorus 5.4 H, Magnesium 1.7, Albumin 2.0 L Micro: Microbiology 03/07/21 13:16 Blood Culture (Wb) - Left Forearm Blood Culture - Preliminary No growth in 48 hours. 03/07/21 13:24 Blood Culture (Wb) - Right Hand Blood Culture - Preliminary No growth in 48 hours. 03/05/21 10:00 Urine, Cystoscopy Urine Culture - Final Klebsiella pneumoniae sp pneum Yeast, not Zoila albicans 03/05/21 10:00 Other - Fluid Gram Stain - Final 03/05/21 07:35 Nasal Secretion SARS-CoV-2 Antigen (Rapid) - Final Physical Exam Narrative Const: Alert and oriented, no acute distress Cardio: Normal S1, S2, rhythm regular Respiratory: Lung sounds clear anteriorly GI: Abdomen soft, nontender, positive bowel sounds : Indwelling Judd with clear urine in bag Extremities: No edema noted bilateral lower legs or arms Assessment & Plan Assessment/Plan (1) DEISI (acute kidney injury): PLAN: - nonoliguric, hypovolemic DEISI on CKD stage 3 multifactorial from volume depletion/dehydration and obstruction (hydronephrosis status post left ur eteral stent change on 03/05/2021). Creatinine peaked at 11.00 mg/dL on 03/04/2021. -Serum creatinine has been improving daily since admission. Serum creatinine was 6.8 mg deciliter on 03/08/2021. Serum creatinine is down to 5.81 mg/dL today. -Patient is nonoliguric, no significant uremic symptoms. 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 -I will stop IV fluid today since there is subjective pedal edema. -The patient was encouraged to push oral solute and fluid intake. (2) CKD (chronic kidney disease) stage 3, GFR 30-59 ml/min: PLAN: - CKD stge III, baseline creatinine is around 2.2 mg/dL. Patient's creatinine was 2.2 mg/dL in December 2020. - Following with Dr. Hill, known to have hydronephrosis of left kidney. Noncontrast CT of abdomen and pelvis done on admission showed hydronephrosis left kidney. (3) Hypokalemia: PLAN: -Potassium level is better after replacement yesterday. There is no diarrhea. We will continue to monitor potassium and replace potassium deficit. -Magnesium level is normal at 1.7 mg/dL today. -Potassium level was initially high but improved with improving renal function and bicarbonate drip. -Bicarbonate drip was stopped on 03/07/2021. -Hypokalemia may be due to recovering renal function, lack of intake, and renal wasting of potassium as obstruction has been relieved. -Recheck potassium and magnesium level in a.m. (4) Metabolic acidosis: PLAN: - Serum bicarbonate level is still low at 20 mmol/L. This is likely due to DEISI on CKD. However, normal saline may also be contributing to acidosis. I will stop normal saline today and encourage oral intake as described above. -We will continue to watch bicarbonate. There is no need to increase supplemental sodium bicarbonate. (5) Hypertension: PLAN: - BP is under reasonable control on hydralazine. No need to change doses today.
[2021-03-09] MEDS: Tamsulosin HCl 0.4 MG Capsule PO (11:28)
[2021-03-09] MEDS: Glucerna Shake 120 ML LIQUID PO (11:28)
[2021-03-09] MEDS: Piperacil/Tazobactam 3.375 GM/50 ML ML IV (11:29)
[2021-03-09] MEDS: Sodium Bicarbonate 650 MG Tablet PO ×2 (11:30→21:06)
[2021-03-09 11:41] LABS: Bedside Glucose 131 mg/dL (70-110)
--- NOTE | 2021-03-09 14:45 | PN.HOSP_ITS ---
Subjective Subjective Patient seen and examined. He has no active complaints. He had an uneventful night. Review of systems is otherwise negative. Cr is down to 5.81 today. Objective Data Objective Data Vital Signs: Vital Signs Temp Pulse Resp BP Pulse Ox 98.7 F 103 H 16 144/62 H 98 03/09/21 09:34 03/09/21 11:00 03/09/21 09:34 03/09/21 09:34 03/09/21 09:34 Oxygen Delivery Method Room Air Weight: 155 lb 6.814 oz Body Mass Index (BMI) 21.4 Intake & Output: Intake and Output for Last 24 Hours 03/07/21 03/08/21 03/09/21 23:59 23:59 23:59 Intake Total 4463.33 / 4463.33 2745 / 2745 2265 / 2265 Output Total 2275 / 2275 1999 / 2099 2350 / 2350 Balance 2188.33 / 2188.33 745 / 645 -85 / -85 Medical Nutrition Assessment Dietitian: Malnutrition Criteria Met Start: 03/06/21 14:14 Freq: Status: Active Protocol: Document 03/06/21 14:14 AG (Rec: 03/06/21 14:14 [id number]) Nutrition Malnutrition Evidence of Malnutrition Exists Yes Malnutrition (severe): Chronic Evidenced By Suboptimal Energy Intake ( Severe),Weight Loss (Severe) Intake Problem Inadequate Oral Intake Etiology r/t poor appetite Signs/Symptoms as evidenced by family reports of pt consuming <50% of meals [employer], 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 intake meeting <50% of estimated energy needs x 3 weeks Status Active Problem Clinical Problem Chronic Disease or Condition Related Malnutrition Etiology severe, chronic malnutrition r /t decreased energy intake w/ increased energy needs d/t cancer Signs/Symptoms as evidenced by 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 intake meeting <50% of estimated energy needs x 3 weeks, 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 wt loss of 19.3#/12% x 3 months Status Active Problem Altered Nutrient-Related Laboratory Values Etiology r/t DEISI on CKD Signs/Symptoms as evidenced by BUN 103, creatinine 9.08 Status Active Problem Recommendation Dietitian Recommendations/Changes regular diet as tolerated; if renal function declines further, will restriction potassium/phos/sodium as appropriate. Will add 120mL glucerna ONS 4x/day w/ medpass d/t malnutrition. Lab / Micro Data Result Diagrams: 03/09/21 07:25 03/09/21 07:25 Labs: Laboratory Results - last 24 hr 03/08/21 22:11: POC Glucose 85 03/09/21 06:19: POC Glucose 99 03/09/21 07:25: WBC 7.4, RBC 3.10 L, Hgb 8.3 L, Hct 26.8 L, MCV 86.5, MCH 26.8 L , MCHC 31.0 L, RDW Std Deviation 48.1 H, RDW Coeff of Darian 15.1 H, Plt Count 203, MPV 9.1, Immature Gran % (Auto) 0.700, Neut % (Auto) 74.5 H, Lymph % (Auto) 10.9 L, [place] % (Auto) 10.8 H, Eos % (Auto) 2.6, Baso % (Auto) 0.5, Absolute Neuts (auto) 5.5, Absolute Lymphs (auto) 0.81 L, Nucleated RBC % 0 03/09/21 07:25: Sodium 140, Potassium 3.6, Chloride 108 H, Carbon Dioxide 20.0 L , BUN 57 H, Creatinine 5.81 H, Estim Creat Clear Calc 9.81, Est GFR (MDRD) Af Amer 12 L, Est GFR (MDRD) Non-Af 10 L, BUN/Creatinine Ratio 9.8 L, Glucose 111 H , Calcium 7.6 L, Phosphorus 5.4 H, Magnesium 1.7, Albumin 2.0 L 03/09/21 11:24: POC Glucose 131 H Micro: Microbiology 03/07/21 13:16 Blood Culture (Wb) - Left Forearm Blood Culture - Preliminary No growth in 48 hours. 03/07/21 13:24 Blood Culture (Wb) - Right Hand Blood Culture - Preliminary No growth in 48 hours. 03/05/21 10:00 Urine, Cystoscopy Urine Culture - Final Klebsiella pneumoniae sp pneum Yeast, not Zoila albicans 03/05/21 10:00 Other - Fluid Gram Stain - Final 03/05/21 07:35 Nasal Secretion SARS-CoV-2 Antigen (Rapid) - Final Physical Exam Const alert, oriented x3 and no apparent distress Exam Limitations: no limitations HEENT head/scalp atraumatic Head and Scalp: normocephalic Eyes PERRL, EOMs intact bilaterally and conjunctivae normal Neck no lymphadenopathy Resp normal respiratory effort, no retractions, no use of accessory muscles and clear to auscultation bilaterally Cardio S1 normal heart sound, S2 normal heart sound and no murmurs Cardio Narrative: mildly tachycardic GI normal to inspection, nondistended, normoactive bowel sounds, soft to palpation, non-tender and non-distended Extremity normal to inspection, full ROM and no clubbing, cyanosis or edema Peripheral Pulses: Yes pulses 2+ throughout Skin no rashes or lesions noted Neuro oriented x3, CN's II-XII intact bilaterally and moves all extremities Sensorium / Orientation: awake and alert Psych affect normal Assessment & Plan Assessment/Plan (1) DEISI (acute kidney injury): (2) Complicated acute cystitis: PLAN: #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 Patient being hydrated with IV fluids. Nephrology on board. * per nephro, fluids dc'd today. * #Non-anion gap metabolic acidosis due to DEISI on CKD stage IIIb * bicarb today remains 20. * anion gap is 12. * Will monitor * #Hypokalemia; resolved. 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 * Culture sent and patient started on IV zosyn. * urine culture growing klebsiella pneumoniae and yeast, not C. albicans * Blood cultures are negative after 48 hours. * Urology on board. * will switch to PO cefdinir 300mg bid based on sensitivities * #Type 2 diabetes mellitus: On Lantus 10 units daily. Insulin sliding scale. Checks ACH S. #Anxiety and depression: on Remeron #Acute on chronic anemia: * s/p transfusion of 2 units of PRBCs. Hb today is 8.3. Likely due to hematuria on admission. #History of colon and rectal cancer: S/p resection. Follow-up with oncology on outpatient basis. DVT prophylaxis: SCDs Charges/Coding Visit Charges Inpatient E&M: 94997 Subs Hosp L2
[2021-03-09] MEDS: 0.9% Saline Lock 10 ML Syringe IV (21:03)
[2021-03-09] MEDS: Mirtazapine 15 MG Tablet PO (21:06)
[2021-03-09] MEDS: Cefdinir 300 MG Capsule PO (21:16)
[2021-03-09 22:01] LABS: Bedside Glucose 105 mg/dL (70-110)
[2021-03-10] VITALS (9 sets, daily range): BP systolic 136–141; BP diastolic 69–71; PULSE 102–111; RESP 16–18; TEMP 37.1–37.4; O2SAT 95–99
[2021-03-10] MEDS: hydrALAZINE 50 MG Tablet PO ×2 (06:13→12:56)
[2021-03-10 06:30] LABS: Bedside Glucose 83 mg/dL (70-110)
[2021-03-10 06:42] LABS: Absolute Lymphocyte Count 0.97 X10^3/uL (0.83-4.51); Absolute Neutrophil Count 5.1 X10^3/uL (2.0-7.7); Basophil# 0.04 X10^3/uL; Basophil% 0.6 % (0-1); Eosinophil# 0.16 X10^3/uL; Eosinophils% 2.2 % (0-5); Hematocrit 26.8 % (40-54); Hemoglobin 8.1 g/dL (13.0-16.5); Lymphocyte # 0.97 X10^3/ul (0.83-4.51); Lymphocyte % 13.6 % (19-41); Mean Corp Hgb Conc 30.2 g/dL (32-36); Mean Corpuscular Hgb 26.7 pg (27.0-32.0); Mean Corpuscular Volume 88.4 fL (80-94); Mean Platelet Vol. 9.1 fl (6.2-12.0); Monocyte# 0.83 X10^3/uL; Monocyte% 11.6 % (0-10); NRBC Flagged by Analyzer 0 % (0-5); Neutrophil # 5.05 X10^3/uL (2.7-7.7); Neutrophil % 70.9 % (47-70); Platelet Count 210 K/mm3 (150-450); RBC Distribution Width CV 15.1 % (11.6-14.6); RBC Distribution Width SD 49.1 fl (35.1-43.9); Red Blood Count 3.03 M/mm3 (4.6-6.2); White Blood Count 7.1 K/mm3 (4.4-11.0)
[2021-03-10 07:00] LABS: BUN 53 mg/dL (7-18); BUN/Creat Ratio 9.9 RATIO (10-20); Calcium,Total 8.1 mg/dL (8.5-10.1); Chloride 109 mmol/L (98-107); Creatinine, Serum 5.37 mg/dL (0.70-1.30); EST Glomerular Filtration Rate 11 mL/min (>60); Est Glom Filt Rate - Afr Amer 13 mL/min (>60); Estimated Creatinine Clearance 10.61 ml/min; Glucose 86 mg/dL (74-106); Magnesium 1.6 mg/dL (1.6-2.6); Phosphorus 5.7 mg/dL (2.5-4.9); Potassium 3.4 mmol/L (3.5-5.1); Sodium Level 140 mmol/L (136-145)
[2021-03-10] MEDS: Tamsulosin HCl 0.4 MG Capsule PO (11:01)
[2021-03-10] MEDS: Sodium Bicarbonate 650 MG Tablet PO (11:01)
--- NOTE | 2021-03-10 11:08 | PCM.TXEXTCAR ---
Documented by User: LANEY Jaquez 03/10/21 12:49 Diet 03/06/21 09:23 Diet: Regular - General Type of Dietary Supplement:: Glucerna Shake Is pt able to select menu?: Yes Routine Orders/Code Status Enema Type: Fleetz Enema Frequency: Daily PRN Suppository Type: Dulcolax 10mg Suppository Frequency: Daily PRN Routine Lab Work: CBC (03/11/2021) and BMP (03/11/2021) Code Status: Full Code Suggestions for Active Care Change Position every (hours): 2 Times a day to sit in chair: 3 Therapies Physical Therapy: Eval and Treat Occupational Therapy: Eval and Treat Problem/Diagnosis (1) DEISI (acute kidney injury): Status: Acute (2) Complicated acute cystitis: Status: Acute Allergies/Procedures Done in Hospital Allergies No Known Allergies Allergy (Verified 02/26/21 10:07) Procedures: None Type of Care/Length of Stay Estimated LOS: Convalescent Care Less Than 30 days Type of Care Needed: Skilled Rehab Potential: Fair Prognosis: Fair Additional Orders/Day of Discharge Day of Discharge: 03/10/21 Dietary and Speech Recommendations Dietitian Recommendations/Changes: regular diet as tolerated; if renal function declines further, will restriction potassium/phos/sodium as appropriate. Will add 120mL glucerna ONS 4x/day w/ medpass d/t malnutrition. Discharge Plan Admission Admit Date/Time: 03/04/21 20:27 Primary Reason for Your Visit: DEISI on CKD, Acute Cystitis Attending Provider: Nessa Langford Primary Care Provider: Srinivas Thayer Consulting Providers: Brandi Vallejo ; Tal Hill Discharge Orders/Prescriptions Prescriptions: New acetaminophen [Tylenol] 325 mg Tablet 650 mg PO Q4H PRN PRN (Reason: Fever, pain 1-12/01) Qty: 0 RF: 0 sodium bicarbonate 650 mg Tablet 650 mg PO BID Qty: 0 RF: 0 cefdinir 300 mg Capsule 300 mg PO DAILY@2200 Qty: 0 RF: 0 Continued loperamide 2 MG capsule 2 mg PO BID RF: 0 cholecalciferol (vitamin D3) 1,000 UNIT tablet 1,000 unit PO DAILY RF: 0 tamsulosin 0.4 MG capsule 0.4 mg PO DAILY Qty: 30 RF: 0 hydralazine 50 MG tablet 50 mg PO BID Qty: 60 RF: 0 acetaminophen [Tylenol Extra Strength] 500 mg Tablet 1,000 mg PO BID RF: 0 Lantus Solostar U-100 Insulin 100 unit/mL (3 mL) Insulin Pen 10 unit SUBCUT DAILY RF: 0 sulfamethoxazole-trimethoprim 800-160 mg tablet 1 tab PO BID RF: 0 mirtazapine 15 mg tablet 15 mg PO QHS RF: 0 Discontinued cephalexin 500 mg Capsule 500 mg PO BID RF: 0 Referrals / Follow Up: Tal Hill MD [STAFF PHYSICIAN] - Within 2 Weeks (call for appointment) Srinivas Thayer MD [Primary Care Provider] - Disposition Disposition (needs filled in before D/C Order can be placed): Custodial Facility Documented by User: Dr. Nessa Langford MD 03/10/21 13:41 Allergies/Procedures Done in Hospital Allergies No Known Allergies Allergy (Verified 02/26/21 10:07) Discharge Plan Admission Admit Date/Time: 03/04/21 20:27 Primary Reason for Your Visit: DEISI on CKD, Acute Cystitis Attending Provider: Nessa Langford Primary Care Provider: Srinivas Thayer Consulting Providers: Brandi Vallejo ; Tal Hill Discharge Orders/Prescriptions Prescriptions: New acetaminophen [Tylenol] 325 mg Tablet 650 mg PO Q4H PRN PRN (Reason: Fever, pain 1-12/01) Qty: 0 RF: 0 sodium bicarbonate 650 mg Tablet 650 mg PO BID Qty: 0 RF: 0 cefdinir 300 mg Capsule 300 mg PO DAILY@2200 Qty: 0 RF: 0 Continued loperamide 2 MG capsule 2 mg PO BID RF: 0 cholecalciferol (vitamin D3) 1,000 UNIT tablet 1,000 unit PO DAILY RF: 0 tamsulosin 0.4 MG capsule 0.4 mg PO DAILY Qty: 30 RF: 0 hydralazine 50 MG tablet 50 mg PO BID Qty: 60 RF: 0 acetaminophen [Tylenol Extra Strength] 500 mg Tablet 1,000 mg PO BID RF: 0 Lantus Solostar U-100 Insulin 100 unit/mL (3 mL) Insulin Pen 10 unit SUBCUT DAILY RF: 0 sulfamethoxazole-trimethoprim 800-160 mg tablet 1 tab PO BID RF: 0 mirtazapine 15 mg tablet 15 mg PO QHS RF: 0 Discontinued cephalexin 500 mg Capsule 500 mg PO BID RF: 0 Referrals / Follow Up: Tal Hill MD [STAFF PHYSICIAN] - Within 2 Weeks (call for appointment) Srinivas Thayer MD [Primary Care Provider] - Disposition Disposition (needs filled in before D/C Order can be placed): Custodial Facility
--- NOTE | 2021-03-10 11:10 | PN.RENAL_ITS ---
Subjective Subjective Resting in bed, eating breakfast. States appetite improved. No nausea. Objective Data Objective Data Vital Signs: Vital Signs Temp Pulse Resp BP Pulse Ox 99.3 F H 106 H 16 136/69 H 95 03/10/21 09:07 03/10/21 09:07 03/10/21 09:07 03/10/21 09:07 03/10/21 09:07 Oxygen Delivery Method Room Air Weight: 70.7 kg Body Mass Index (BMI) 21.4 Intake & Output: Intake and Output for Last 24 Hours 03/08/21 03/09/21 03/10/21 23:59 23:59 23:59 Intake Total 2745 / 2745 2675 / 2675 Output Total 1999 / 2099 3150 / 3880 1430 / 1430 Balance 745 / 645 -475 / -1205 -1430 / -1430 Medical Nutrition Assessment Dietitian: Malnutrition Criteria Met Start: 03/06/21 14:14 Freq: Status: Active Protocol: Document 03/06/21 14:14 DEMETRIS (Rec: 03/06/21 14:14 [id number]) Nutrition Malnutrition Evidence of Malnutrition Exists Yes Malnutrition (severe): Chronic Evidenced By Suboptimal Energy Intake ( Severe),Weight Loss (Severe) Intake Problem Inadequate Oral Intake Etiology r/t poor appetite Signs/Symptoms as evidenced by family reports of pt consuming <50% of meals [employer]IL [employer]ER, 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 intake meeting <50% of estimated energy needs x 3 weeks Status Active Problem Clinical Problem Chronic Disease or Condition Related Malnutrition Etiology severe, chronic malnutrition r /t decreased energy intake w/ increased energy needs d/t cancer Signs/Symptoms as evidenced by 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 intake meeting <50% of estimated energy needs x 3 weeks, 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 wt loss of 19.3#/12% x 3 months Status Active Problem Altered Nutrient-Related Laboratory Values Etiology r/t DEISI on CKD Signs/Symptoms as evidenced by BUN 103, creatinine 9.08 Status Active Problem Recommendation Dietitian Recommendations/Changes regular diet as tolerated; if renal function declines further, will restriction potassium/phos/sodium as appropriate. Will add 120mL glucerna ONS 4x/day w/ medpass d/t malnutrition. Lab / Micro Data Result Diagrams: 03/10/21 06:00 03/10/21 06:00 Labs: Laboratory Results - last 24 hr 03/09/21 11:24: POC Glucose 131 H 03/09/21 20:56: POC Glucose 105 03/10/21 06:00: WBC 7.1, RBC 3.03 L, Hgb 8.1 L, Hct 26.8 L, MCV 88.4, MCH 26.7 L , MCHC 30.2 L, RDW Std Deviation 49.1 H, RDW Coeff of Darian 15.1 H, Plt Count 210, MPV 9.1, Immature Gran % (Auto) 1.100 H, Neut % (Auto) 70.9 H, Lymph % (Auto) 13.6 L, [place] % (Auto) 11.6 H, Eos % (Auto) 2.2, Baso % (Auto) 0.6, Absolute Neuts (auto) 5.1, Absolute Lymphs (auto) 0.97, Nucleated RBC % 0 03/10/21 06:00: Sodium 140, Potassium 3.4 L, Chloride 109 H, Carbon Dioxide 19.0 L, BUN 53 H, Creatinine 5.37 H, Estim Creat Clear Calc 10.61, Est GFR (MDRD) Af Amer 13 L, Est GFR (MDRD) Non-Af 11 L, BUN/Creatinine Ratio 9.9 L, Glucose 86, Calcium 8.1 L, Phosphorus 5.7 H, Magnesium 1.6, Albumin 2.0 L 03/10/21 06:11: POC Glucose 83 Micro: Microbiology 03/07/21 13:16 Blood Culture (Wb) - Left Forearm Blood Culture - Preliminary No growth in 48 hours. 03/07/21 13:24 Blood Culture (Wb) - Right Hand Blood Culture - Preliminary No growth in 48 hours. 03/05/21 10:00 Urine, Cystoscopy Urine Culture - Final Klebsiella pneumoniae sp pneum Yeast, not Zoila albicans 03/05/21 10:00 Other - Fluid Gram Stain - Final 03/05/21 07:35 Nasal Secretion SARS-CoV-2 Antigen (Rapid) - Final Physical Exam Narrative Const: Alert and oriented, no acute distress Cardio: Normal S1, S2, rhythm regular Respiratory: Lung sounds clear anteriorly GI: Abdomen soft, nontender, positive bowel sounds : Indwelling Judd with tea colored urine in bag Extremities: No edema noted bilateral lower legs or arms Assessment & Plan Assessment/Plan (1) DEISI (acute kidney injury): PLAN: - nonoliguric, hypovolemic DEISI on CKD stage 3 multifactorial from volume depletion/dehydration and obstruction (hydronephrosis status post left ureteral stent change on 03/05/2021). Creatinine peaked at 11.00 mg/dL on 03/04/2021. -Serum creatinine has been improving daily since admission. Serum creatinine was 6.8 mg/dL on 03/08/2021. Serum creatinine is down to 5.37 mg/dL today. -Patient is nonoliguric, no significant uremic symptoms. No acute indication for BIOMEDICAL EQUIPMENT SUPPORT SPECIALIST. -off IVF -The patient was encouraged to push oral solute and fluid intake. (2) CKD (chronic kidney disease) stage 3, GFR 30-59 ml/min: PLAN: - CKD stge III, baseline creatinine is around 2.2 mg/dL. Patient's creatinine was 2.2 mg/dL in December 2020. - Following with Dr. Hill, known to have hydronephrosis of left kidney. Noncontrast CT of abdomen and pelvis done on admission showed hydronephrosis left kidney. (3) Hypokalemia: PLAN: -There is no diarrhea. We will continue to monitor potassium and replace potassium deficit. Getting oral K+ supplement today -Magnesium level is normal at 1.6mg/dL today. -Potassium level was initially high but improved with improving renal function and bicarbonate drip. -Bicarbonate drip was stopped on 03/07/2021. -Hypokalemia may be due to recovering renal function, lack of intake, and renal wasting of potassium as obstruction has been relieved. (4) Metabolic acidosis: PLAN: - Serum bicarbonate level is still low at 19 mmol/L. This is likely due to DEISI on CKD. -We will continue to watch bicarbonate. There is no need to increase supplemental sodium bicarbonate. (5) Hypertension: PLAN: - BP is under reasonable control on hydralazine. No need to change doses today. -- Discharge planning in progress to TCU possibly today. We will check BMP later in the week.
--- NOTE | 2021-03-10 11:18 | PCM.DC.SUM ---
Documented by User: LANEY Jaquez 03/11/21 07:53 Providers Date of Admission: 03/04/21 Primary Care Physician: Dr. Srinivas Thayer MD Consultations 03/04/21 21:54 Consult: Nephrology Routine Consulting Provider: Brandi Vallejo Reason for Consult: notable DEISI on CKD EMERGENT Consult: No MD Notified: Yes Date Notified: 03/05/21 Time Notified: 04:16 Method of Notification: Answering Service Consult: Urology Routine Consulting Provider: Tal Hill Reason for Consult: Admitted w/ worsening DEISI, has hematuria, mild onset. EMERGENT Consult: No MD Notified: Yes Date Notified: 03/05/21 Time Notified: 07:27 Method of Notification: Verbal Reason For Visit: DEISI ON CKD Diagnosis Discharge Diagnosis (1) DEISI (acute kidney injury): Status: Acute Code(s): N17.9 - Acute kidney failure, unspecified (2) Complicated acute cystitis: Status: Acute (3) Metabolic acidosis: Status: Resolved Code(s): E87.2 - Acidosis (4) CKD (chronic kidney disease) stage 3, GFR 30-59 ml/min: Status: Chronic Code(s): N18.30 - Chronic kidney disease, stage 3 unspecified (5) Hypokalemia: Status: Acute Code(s): E87.6 - Hypokalemia Medications at Discharge Home Medications cholecalciferol (vitamin D3) 1,000 unit PO DAILY 12/08/19 loperamide 2 mg PO BID 12/08/19 acetaminophen [Tylenol Extra Strength] 1,000 mg PO BID 09/18/20 Lantus Solostar U-100 Insulin 10 unit SUBCUT DAILY 12/25/20 mirtazapine 15 mg PO QHS 03/04/21 sulfamethoxazole-trimethoprim 1 tab PO BID 03/04/21 acetaminophen [Tylenol] 650 mg PO Q4H PRN PRN #0 tab 03/10/21 cefdinir 300 mg PO DAILY@2200 03/10/21 hydralazine 50 mg PO BID 03/10/21 sodium bicarbonate 650 mg PO BID 03/10/21 tamsulosin 0.4 mg PO DAILY 03/10/21 Hospital Course Operations - (Cystoscopy with left retrograde pyelogram interpretation fluoroscopic images and left stent placement) Procedures None Summary of Care Provided Hospital Course: Is an 80-year-old male who originally presented with plaints of urinary retention. Patient has a history of ureteral scarring with strictures and was set to have a stent replacement on 03/05/2021. Dr. Hill was consulted and performed a cystoscopy with left stent placement on 03/05/2021. Patient was also noted on admission to have acute kidney injury superimposed on kidney disease stage IIIb. Admission BUN and creatinine were 32 and 11. A Judd catheter was maintained and was noted to have large and frequent blood clots immediately following stent replacement and cystoscopy. Patient became increasingly anemic on 03/06/2021 and received 2 units packed red blood cells. Patient's hemoglobin has maintained above 8 for the past 4 days. Due to acute kidney injury patient was seen and evaluated by nephrology and patient was initiated on oral bicarb. Patient's creatinine and BUN have been slowly trending down since admission. Physical Exam Const alert, oriented x3 and no apparent distress General Appearance: cooperative HEENT normocephalic and head/scalp atraumatic Eyes conjunctivae normal and no scleral icterus Neck supple General: trachea midline Resp normal respiratory effort Effort and Inspection: able to speak in complete sentences and symmetric chest movement Auscultation: diminished lung sounds Cardio regular rate, regular rhythm, S1 normal heart sound and S2 normal heart sound Rate: tachycardic GI normal to inspection, nondistended, normoactive bowel sounds, soft to palpation and non-tender Extremity normal capillary refill General Extremity: edema bilateral lower extremity Details: mild and no tenderness to palpation of joints or extremities Skin skin turgor normal General Skin Exam: no breakdown Lesions: no lesions Rashes: no rashes Neuro no focal motor deficits and no sensory deficits noted Speech: speech normal Motor Exam: general weakness Psych Speech: normal speech Mood & Affect: flat affect Thought Process: normal thought process Medical Records Data Medical Nutrition Assessment Dietitian: Malnutrition Criteria Met Start: 03/06/21 14:14 Freq: Status: Active Protocol: Document 03/06/21 14:14 (Rec: 03/06/21 14:14 [id number]) Nutrition Malnutrition Evidence of Malnutrition Exists Yes Malnutrition (severe): Chronic Evidenced By Suboptimal Energy Intake ( Severe),Weight Loss (Severe) Intake Problem Inadequate Oral Intake Etiology r/t poor appetite Signs/Symptoms as evidenced by family reports of pt consuming <50% of meals [employer], 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 intake meeting <50% of estimated energy needs x 3 weeks Status Active Problem Clinical Problem Chronic Disease or Condition Related Malnutrition Etiology severe, chronic malnutrition r /t decreased energy intake w/ increased energy needs d/t cancer Signs/Symptoms as evidenced by 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 intake meeting <50% of estimated energy needs x 3 weeks, 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 wt loss of 19.3#/12% x 3 months Status Active Problem Altered Nutrient-Related Laboratory Values Etiology r/t DEISI on CKD Signs/Symptoms as evidenced by BUN 103, creatinine 9.08 Status Active Problem Recommendation Dietitian Recommendations/Changes regular diet as tolerated; if renal function declines further, will restriction potassium/phos/sodium as appropriate. Will add 120mL glucerna ONS 4x/day w/ medpass d/t malnutrition. Weight / BMI Weight Weight: 155 lb 13.869 oz Body Mass Index (BMI) 21.4 ABG / Lab / Microbiology Data Result Diagrams: 03/10/21 06:00 03/10/21 06:00 Laboratory: Laboratory Results - last 24 hr 03/09/21 11:24: POC Glucose 131 H 03/09/21 20:56: POC Glucose 105 03/10/21 06:00: WBC 7.1, RBC 3.03 L, Hgb 8.1 L, Hct 26.8 L, MCV 88.4, MCH 26.7 L, MCHC 30.2 L, RDW Std Deviation 49.1 H, RDW Coeff of Darian 15.1 H, Plt Count 210, MPV 9.1, Immature Gran % (Auto) 1.100 H, Neut % (Auto) 70.9 H, Lymph % (Auto) 13.6 L, [place] % (Auto) 11.6 H, Eos % (Auto) 2.2, Baso % (Auto) 0.6, Absolute Neuts (auto) 5.1, Absolute Lymphs (auto) 0.97, Nucleated RBC % 0 03/10/21 06:00: Sodium 140, Potassium 3.4 L, Chloride 109 H, Carbon Dioxide 19.0 L, BUN 53 H, Creatinine 5.37 H, Estim Creat Clear Calc 10.61, Est GFR (MDRD) Af Amer 13 L, Est GFR (MDRD) Non-Af 11 L, BUN/Creatinine Ratio 9.9 L, Glucose 86, Calcium 8.1 L, Phosphorus 5.7 H, Magnesium 1.6, Albumin 2.0 L 03/10/21 06:11: POC Glucose 83 Microbiology: Microbiology 03/07/21 13:16 Blood Culture (Wb) - Left Forearm Blood Culture - Preliminary No growth in 48 hours. 03/07/21 13:24 Blood Culture (Wb) - Right Hand Blood Culture - Preliminary No growth in 48 hours. 03/05/21 10:00 Urine, Cystoscopy Urine Culture - Final Klebsiella pneumoniae sp pneum Yeast, not Zoila albicans 03/05/21 10:00 Other - Fluid Gram Stain - Final 03/05/21 07:35 Nasal Secretion SARS-CoV-2 Antigen (Rapid) - Final D/C Instructions Discharge Diet: No restrictions Discharge Activity: Return to Normal Activity Call your doctor if you observe: Fever of 101 or Higher, Inability to urinate and Uncontrolled pain Meaningful Use Info Meaningful Use Diagnoses (Choose all that apply): None applicable Discharge Plan Admission Admit Date/Time: 03/04/21 20:27 Primary Reason for Your Visit: DEISI on CKD, Acute Cystitis Attending Provider: Nessa Langford Primary Care Provider: Srinivas Thayer Consulting Providers: Brandi Vallejo ; Tal Hill Discharge Orders/Prescriptions Prescriptions: New acetaminophen [Tylenol] 325 mg Tablet 650 mg PO Q4H PRN PRN (Reason: Fever, pain 1-12/01) Qty: 0 RF: 0 Continued loperamide 2 MG capsule 2 mg PO BID RF: 0 cholecalciferol (vitamin D3) 1,000 UNIT tablet 1,000 unit PO DAILY RF: 0 acetaminophen [Tylenol Extra Strength] 500 mg Tablet 1,000 mg PO BID RF: 0 Lantus Solostar U-100 Insulin 100 unit/mL (3 mL) Insulin Pen 10 unit SUBCUT DAILY RF: 0 sulfamethoxazole-trimethoprim 800-160 mg tablet 1 tab PO BID RF: 0 mirtazapine 15 mg tablet 15 mg PO QHS RF: 0 Discontinued cephalexin 500 mg Capsule 500 mg PO BID RF: 0 No Action tamsulosin 0.4 MG capsule 0.4 mg PO DAILY RF: 0 sodium bicarbonate 650 mg tablet 650 mg PO BID RF: 0 hydralazine 50 MG tablet 50 mg PO BID RF: 0 cefdinir 300 mg capsule 300 mg PO DAILY@2200 RF: 0 Referrals / Follow Up: Tal Hill MD [STAFF PHYSICIAN] - Within 2 Weeks (call for appointment) Srinivas Thayer MD [Primary Care Provider] - Disposition Disposition (needs filled in before D/C Order can be placed): Residential Facility Documented by User: Dr. Nessa Langford MD 03/11/21 08:03 Providers Date of Admission: 03/04/21 Reason For Visit: DEISI ON CKD Diagnosis Discharge Diagnosis (1) Severe malnutrition: Status: Acute Code(s): E43 - Unspecified severe protein-calorie malnutrition Medications at Discharge Home Medications cholecalciferol (vitamin D3) 1,000 unit PO DAILY 12/08/19 loperamide 2 mg PO BID 12/08/19 acetaminophen [Tylenol Extra Strength] 1,000 mg PO BID 09/18/20 Lantus Solostar U-100 Insulin 10 unit SUBCUT DAILY 12/25/20 mirtazapine 15 mg PO QHS 03/04/21 sulfamethoxazole-trimethoprim 1 tab PO BID 03/04/21 acetaminophen [Tylenol] 650 mg PO Q4H PRN PRN #0 tab 03/10/21 cefdinir 300 mg PO DAILY@2200 03/10/21 hydralazine 50 mg PO BID 03/10/21 sodium bicarbonate 650 mg PO BID 03/10/21 tamsulosin 0.4 mg PO DAILY 03/10/21 ABG / Lab / Microbiology Data Result Diagrams: 03/10/21 06:00 03/10/21 06:00 Discharge Plan Admission Admit Date/Time: 03/04/21 20:27 Primary Reason for Your Visit: DEISI on CKD, Acute Cystitis Attending Provider: Nessa Langford Primary Care Provider: Srinivas Thayer Consulting Providers: Brandi Vallejo ; Tal Hill Discharge Orders/Prescriptions Prescriptions: New acetaminophen [Tylenol] 325 mg Tablet 650 mg PO Q4H PRN PRN (Reason: Fever, pain 1-12/01) Qty: 0 RF: 0 Continued loperamide 2 MG capsule 2 mg PO BID RF: 0 cholecalciferol (vitamin D3) 1,000 UNIT tablet 1,000 unit PO DAILY RF: 0 acetaminophen [Tylenol Extra Strength] 500 mg Tablet 1,000 mg PO BID RF: 0 Lantus Solostar U-100 Insulin 100 unit/mL (3 mL) Insulin Pen 10 unit SUBCUT DAILY RF: 0 sulfamethoxazole-trimethoprim 800-160 mg tablet 1 tab PO BID RF: 0 mirtazapine 15 mg tablet 15 mg PO QHS RF: 0 Discontinued cephalexin 500 mg Capsule 500 mg PO BID RF: 0 No Action tamsulosin 0.4 MG capsule 0.4 mg PO DAILY RF: 0 sodium bicarbonate 650 mg tablet 650 mg PO BID RF: 0 hydralazine 50 MG tablet 50 mg PO BID RF: 0 cefdinir 300 mg capsule 300 mg PO DAILY@2200 RF: 0 Referrals / Follow Up: Tal Hill MD [STAFF PHYSICIAN] - Within 2 Weeks (call for appointment) Srinivas Thayer MD [Primary Care Provider] - Disposition Disposition (needs filled in before D/C Order can be placed): Residential Facility Charges/Coding Addendum Addendum: This patient was seen in conjunction with Anish Peck NP. I have independently interviewed and examined the patient and reviewed pertinent historical, laboratory, and other data. I have reviewed her note and concur with her documentation 80-year-old male with past medical history of prostate cancer status post TURP, history of colon and rectal cancer status postresection, history of urethral strictures, in remission who was recently admitted and treated for urinary retention and acute Klebsiella UTI. Patient had a recent stent change to a larger ureteral stent on 01/01/21 Patient had presented to his primary care doctor with hematuria, fatigue and poor appetite. Blood work done in the outpatient showed worsening renal function. His admitting creatinine was 11, BUN was 132. Potassium was 5.9. CT of the abdomen and pelvis was unremarkable. Potassium was treated in the ED. patient was admitted to PCU as DEISI on CKD stage IIIb. Urology was consulted. Patient underwent cystoscopy with left retrograde pyelogram on 03/05/21. Intraoperatively, a large left ureteral stent was placed. Purulent urine was obtained. Urine cultures grew Klebsiella. Patient was continued on IV antibiotics and switched to oral cefdinir. Nephrology was consulted during this hospital stay and started patient on sodium bicarbonate. Nephrology will follow patient in TCU at discharge. Patient was discharged to complete cefdinir on 03/13/21. On the day of discharge, patient was seen and examined. Physical Exam: Gen: Comfortable, appears very frail, pale, not jaundiced CVS:HS I +II, regular, no murmurs RESP: Diminished at lung bases GI: BS present and normal, soft, nontender, no palpable organs EXT:No edema Time spent coordinating patient's care, discussing with subspecialty and nursinminutes Visit Charges Inpatient E&M: 06084 Disch Hosp
[2021-03-10] MEDS: Potassium Chloride Oral Tablet 10 MEQ PO (12:56)
[2021-03-10] MEDS: Potassium Chloride Oral Tablet 20 MEQ PO (12:56)
--- NOTE | 2021-03-10 14:00 | CASEMGMT ---
Patient is medically ready for discharge to TCU today. SW notified Rizwana in TCU. SW also notified patient. Patient said he will notify his . Plan: d/c to [facility] TCU under skilled level of care. Anna FREEDMAN
== END 2021-03-10 16:49 | disposition skilled nursing facility (03) | DRG 659 ==
LOC: ED 20:38 → PCU 21:09
PROVIDERS: Internal Medicine Nephrology; Nurse Practitioner Adult Health; Student in an Organized Health Care Education/Training Program; Urology; Admitting Provider Family Medicine; Emergency Provider Emergency Medicine; PCP Family Medicine; Visit Provider Internal Medicine
PROC: 0T778DZ Dilation of Left Ureter with Intraluminal Device, Via Natural or Artificial Opening Endoscopic (ICD-10-PCS; CPT 52332; principal; 2021-03-05 09:10)
DX: N17.9 Acute kidney failure, unspecified (principal); E43 Unspecified severe protein-calorie malnutrition; E87.2 Acidosis; N30.01 Acute cystitis with hematuria; D62 Acute posthemorrhagic anemia; T83.511A Infection and inflammatory reaction due to indwelling urethral catheter, initial encounter; T83.592A Infection and inflammatory reaction due to indwelling ureteral stent, initial encounter; D63.1 Anemia in chronic kidney disease; E11.22 Type 2 diabetes mellitus with diabetic chronic kidney disease; E86.1 Hypovolemia; Z79.4 Long term (current) use of insulin; N18.32 Chronic kidney disease, stage 3b; B96.1 Klebsiella pneumoniae [K. pneumoniae] as the cause of diseases classified elsewhere; E78.5 Hyperlipidemia, unspecified; I12.9 Hypertensive chronic kidney disease with stage 1 through stage 4 chronic kidney disease, or unspecified chronic kidney disease; E87.5 Hyperkalemia; E87.6 Hypokalemia; F41.9 Anxiety disorder, unspecified; N13.6 Pyonephrosis; Y84.6 Urinary catheterization as the cause of abnormal reaction of the patient, or of later complication, without mention of misadventure at the time of the procedure; F32.A Depression, unspecified; Z87.891 Personal history of nicotine dependence; Z85.46 Personal history of malignant neoplasm of prostate; H91.93 Unspecified hearing loss, bilateral; Z20.822 Contact with and (suspected) exposure to COVID-19; Z90.79 Acquired absence of other genital organ(s); Z85.038 Personal history of other malignant neoplasm of large intestine; Z85.048 Personal history of other malignant neoplasm of rectum, rectosigmoid junction, and anus; Z68.21 Body mass index [BMI] 21.0-21.9, adult
CPT/HCPCS: 36415; 74176; 76770; 80048; 80053; 80069; 81001; 82570; 82962; 83735; 84100; 84300; 85025; 86850; 86900; 86901; 86920; 86922; 87040; 87077; 87086; 87088; 87186; 87205; 87426; 93005; 97110; 97162; 97166; 97530; 97535; 99251; 99285; J7030; J7040; P9016; P9040; A4216; C1769; C2617; G0463; J2405

== ENCOUNTER 2021-03-10 17:01 | Inpatient (IN) | payer MEDICARE, SELFPAY ==
[2021-03-10 17:07] VITALS: BP 117/56; PULSE 103; RESP 16; TEMP 37; O2SAT 96; BMI 22.4
[2021-03-10 18:00] LABS: Bedside Glucose 140 mg/dL (70-110)
[2021-03-10 18:13] VITALS: BP 117/56; PULSE 103
[2021-03-10] MEDS: hydrALAZINE 50 MG Tablet PO (18:13)
[2021-03-10] MEDS: Loperamide 2 MG Capsule PO (18:14)
[2021-03-10] MEDS: Acetaminophen 500 MG Tablet 1000 MG PO (18:14)
[2021-03-10] MEDS: Smz/Tmp Ds Tablet 1 TABLET PO (18:14)
[2021-03-10] MEDS: Sodium Bicarbonate 650 MG Tablet PO (18:14)
[2021-03-10] MEDS: Menthol/Lanolin/Calamine/Znox 113 GM Tube 1 APPLIC TOPICAL (18:15)
[2021-03-10] MEDS: Glucerna Shake 120 ML LIQUID PO (19:54)
[2021-03-10] MEDS: Cefdinir 300 MG Capsule PO (19:55)
[2021-03-10] MEDS: Mirtazapine 15 MG Tablet PO (19:55)
--- NOTE | 2021-03-10 20:03 | HP.PCM_ITS ---
HPI - General General Date of Admission: 03/10/21 HPI Narrative 03/04/2021 ALEA SALGADO, is a 80 Male who presents to [facility] Emergency Department with abnormal labs. 03/04/2021 EKG sinus tachycardia, nonspecific ST&T wave abnormality. Baseline Creatinine 2, Creatinine now > 10. Indwelling akers catheter, urine bloody, patient took 3 courses of antibiotics, Cipro, Bactrim, and Bactrim. Dr. Hill, prostate cancer, bilateral ureteral stents. CT abdomen/pelvis showed left hydronephrosis. Kayexalate 30gm po x 1 dose for hyperkalemia. 03/04/2021 Admit to Hospital. Repeat BMP, order renal ultrasound, FENA, Nephrology consult for acute kidney injury. Consult Dr. Hill, stop Bactrim, for bilateral ureteral obstruction. Repeat BMP for hyperkalemia. 03/05/2021 Dr. Hill performed cystoscopy, left ureteral stent placement. 03/05/2021 Dr. Gonzales recommended low potassium diet, oral bicarb, IV fluids for acute kidney injury. Zosyn for urinary tract infection, urine culture pending, Blood culture pending. 03/05/2021 Creatinine 10.5 to 9.26. Kayexalate given for potassium 5.3. Hemoglobin 7.1, Transfuse if Hemoglobin < 7.0. 03/06/2021 Hemoglobin 6.7, Creatinine 9.08. IV fluids, bicarb drip for acute kidney injury, metabolic acidosis. Zosyn IV for left pyelonephritis, urine culture pending, blood culture pending. Transfuse 2 units PRBC for hemoglobin 6.7. 03/07/2021 Creatinine 8.09, Bicarb 22. Urine culture growing Klebsiella pneumoniae, yeast. Hemoglobin 8.1 after 2 units PRBC transfusion. 03/08/2021 Creatinine 6.8, K 3.3, Bicarb 20. IV fluids for acute kidney injury, replete potassium. Zosyn IV for K. Pneumoniae urinary tract infection. 03/09/2021 Creatinine 5.81, Baseline Creatinine 2.2. Stop IV fluids per nephrology. Zosyn IV changed to Cefdinir 300mg bid. 03/10/2021 Admit to TCU with debility, here for rehabilitation, strengthening, prior to discharge home with . [facility] Medical History Anemia Anemia due to chronic kidney disease Arthritis Back pain Cancer Cancer of prostate Cancer of rectum Chronic kidney disease Chronic kidney disease, stage 3b Depression Diabetes Diarrhea Dietary restriction Former smoker H/O fungal disease Hearing loss, left Hearing loss, right High cholesterol History of echocardiogram History of edema History of immunosuppression therapy History of pain when walking Hx of transesophageal echocardiography (SHANNAN) for monitoring Hypertension Insulin dependent diabetes mellitus Kidney disease Osteoporosis Restless legs Self-catheterizes urinary bladder Tendonitis of ankle Walker as ambulation aid Wears dentures Wears glasses Wears hearing aid in both ears Home Medications cholecalciferol (vitamin D3) 1,000 unit PO DAILY 12/08/19 [History Last Taken 09/18/20] loperamide 2 mg PO BID 12/08/19 [History Last Taken 01/01/21 09:00] acetaminophen [Tylenol Extra Strength] 1,000 mg PO BID 09/18/20 [History Last Taken 09/18/20] Lantus Solostar U-100 Insulin 10 unit SUBCUT DAILY 12/25/20 [History Last Taken Unknown] mirtazapine 15 mg PO QHS 03/04/21 [History Last Taken Unknown] sulfamethoxazole-trimethoprim 1 tab PO BID 03/04/21 [History Last Taken Unknown] acetaminophen [Tylenol] 650 mg PO Q4H PRN PRN #0 tab 03/10/21 [Rx Last Taken Unknown] cefdinir 300 mg PO DAILY@2200 03/10/21 [History Last Taken Unknown] hydralazine 50 mg PO BID 03/10/21 [History Last Taken Unknown] sodium bicarbonate 650 mg PO BID 03/10/21 [History Last Taken Unknown] tamsulosin 0.4 mg PO DAILY 03/10/21 [History Last Taken Unknown] Allergy/AdvReac Type Severity Reaction Status Date / Time No Known Allergies Allergy Verified 02/26/21 10:07 Family History Mother Diabetes Father CVA (cerebral vascular accident) Sister Heart disease Brother Heart disease Surgical History H/O partial resection of colon History of renal stent Hx of cystoscopy Hx of cystoscopy Hx of transurethral resection of prostate Social History household members: spouse housing: house current occupational status: retired Smoking Status: Former smoker alcohol intake: never substance use type: does not use ROS Constitutional Constitutional: Denies chills, fever(s) or weight gain ENT HEENT: Denies headache(s), nasal congestion or nasal discharge Cardiovascular Cardiovascular: Denies chest pain or palpitations Respiratory/Chest Respiratory/Chest: Denies cough, excessive phlegm production or shortness of breath with exertion Gastrointestinal Gastrointestinal: Denies abdominal pain, nausea or vomiting Genitourinary Genitourinary: Denies dysuria Musculoskeletal Musculoskeletal: Denies joint pain or joint swelling Integumentary Integumentary: Denies rash or wounds Neurologic Neurologic: Denies focal weakness, numbness or tingling Psychiatric Psychiatric: Denies anxiety, auditory hallucinations, depression, homicidal ideation or suicidal ideation Vital Signs Vital Signs Vital Signs: 03/10/21 17:07 03/10/21 18:13 Temperature 98.6 F Temperature Source Temporal Pulse Rate 103 H 103 H Pulse Rhythm Irregular Pulse Strength Normal (2+) Respiratory Rate 16 Respiratory Effort Normal Non-Labored Respiratory Depth Normal Respiratory Pattern Normal Blood Pressure 117/56 L 117/56 L Blood Pressure Mean 76 Blood Pressure Source Monitor Blood Pressure Position Supine Blood Pressure Location Right Arm Pulse Ox 96 Oxygen Delivery Method Room Air Weight Weight: 66.723 kg Body Mass Index (BMI) 22.4 Physical Exam Const alert and oriented x3 General Appearance: cooperative HEENT normocephalic Eyes PERRL and EOMs intact bilaterally Neck supple, no JVD and no carotid bruits Resp normal respiratory effort, normal air movement and clear to auscultation bilaterally Cardio regular rate and regular rhythm GI normal to inspection, nondistended, normoactive bowel sounds, non-tender and non-distended Bladder / Kidney Exam: catheter in place Extremity normal capillary refill General Extremity: Negative for edema Skin no rashes or lesions noted General Skin Exam: no breakdown Psych affect normal Appearance: appropriate Results Lab / Micro Data Labs: Laboratory Results - last 24 hr 03/10/21 17:30: POC Glucose 140 H Assessment & Plan Assessment/Plan (1) Debility: (2) Acute kidney injury: (3) Chronic kidney disease, stage 3b: (4) Hyperkalemia: (5) Ureteral obstruction, left: (6) Pyelonephritis of left kidney: (7) Hydronephrosis, left: (8) Prostate cancer: (9) Vitamin D deficiency: (10) Chronic diarrhea: (11) Hypertension: (12) Benign prostate hyperplasia: (13) Diabetes mellitus: (14) Appetite loss: (15) Colon cancer: (16) Rectal cancer: PLAN: 80 year old male with below past medical history hospitalized for acute kidney injury secondary to left ureteral obstruction requiring stent, complicated by left pyelonephritis, anemia requiring transfusion, hyperkalemia, metabolic acidosis, admitted to TCU with debility, here for rehabilitation, strengthening, prior to discharge home with . * Debility - PT/OT. * Pain - Tylenol 1000mg q6h prn pain (1-10). * Bowel - Dulcolax 10mg pr daily prn, Imodium 2mg bid, order KUB to evaluate for constipation. * Adult immunization - Administer prevnar 13, pneumovax 23, fluzone, covid19 vaccine as appropriate. * DVT prophylaxis Hold, gross hematuria. * K. Pneumoniae urinary tract infection - Cefdinir 300mg bid thru 03/14/2021. * Nutrition - Glucerna Shake 120ml 4x/day. * Hypertension - Hydralazine 50mg bid. * Diabetes Mellitus II - Lantus 10 units sc daily. * Skin irritation - Calmoseptine topical bid. * Appetite loss - Mirtazapine 15mg qhs, stable chronic half-way use, GDR not recommended. * Acute kidney injury/Chronic kidney disease stage 3b - Consult Dr. Gonzales. * Left ureteral obstruction s/p stent - Consult Dr. Hill. * Right foot pain - Consult Dr. Ribera.
--- NOTE | 2021-03-10 20:36 | RAD_ITS ---
EXAM: XR ABDOMEN, 1 VIEW CLINICAL INDICATION: constipation TECHNIQUE: Frontal supine view of the abdomen/pelvis. This report was created using [employer] report generation technology. COMPARISON: 03/04/2021 CT abdomen pelvis.. FINDINGS: See Impression. RAD/Abdomen Single View (Portable) IMPRESSION: 1. Double-J ureteral stent in place. 2. No bowel obstruction. 3. Atherosclerotic calcifications in the pelvis. 4. Redemonstration of sclerotic appearance of the L4 and L5 vertebra as well as the sacrum which are findings are concerning for metastasis. Moderate hip joint degenerative changes. Electronically Signed: Ronald Farrell MD at 23:01 EST Tel , Service support ,
[2021-03-10 22:50] LABS: Bedside Glucose 103 mg/dL (70-110)
[2021-03-11 06:06] LABS: Absolute Lymphocyte Count 0.78 X10^3/uL (0.83-4.51); Absolute Neutrophil Count 4.4 X10^3/uL (2.0-7.7); Basophil# 0.04 X10^3/uL; Basophil% 0.6 % (0-1); Eosinophil# 0.22 X10^3/uL; Eosinophils% 3.5 % (0-5); Hematocrit 24.8 % (40-54); Hemoglobin 7.6 g/dL (13.0-16.5); Lymphocyte # 0.78 X10^3/ul (0.83-4.51); Lymphocyte % 12.3 % (19-41); Mean Corp Hgb Conc 30.6 g/dL (32-36); Mean Corpuscular Volume 88.3 fL (80-94); Mean Platelet Vol. 9.4 fl (6.2-12.0); Monocyte# 0.84 X10^3/uL; Monocyte% 13.3 % (0-10); NRBC Flagged by Analyzer 0 % (0-5); Neutrophil # 4.38 X10^3/uL (2.7-7.7); Neutrophil % 69.4 % (47-70); Platelet Count 204 K/mm3 (150-450); RBC Distribution Width CV 14.9 % (11.6-14.6); RBC Distribution Width SD 48.9 fl (35.1-43.9); Red Blood Count 2.81 M/mm3 (4.6-6.2); White Blood Count 6.3 K/mm3 (4.4-11.0)
[2021-03-11 06:28] LABS: Anion Gap 10 (5-15); BUN 48 mg/dL (7-18); BUN/Creat Ratio 9.8 RATIO (10-20); Calcium,Total 8.3 mg/dL (8.5-10.1); Chloride 111 mmol/L (98-107); Creatinine, Serum 4.92 mg/dL (0.70-1.30); EST Glomerular Filtration Rate 12 mL/min (>60); Est Glom Filt Rate - Afr Amer 15 mL/min (>60); Glucose 94 mg/dL (74-106); Potassium 3.6 mmol/L (3.5-5.1); Sodium Level 141 mmol/L (136-145)
[2021-03-11] MEDS: Sodium Bicarbonate 650 MG Tablet PO ×2 (06:30→17:32)
[2021-03-11] MEDS: Acetaminophen 500 MG Tablet 1000 MG PO (06:30)
[2021-03-11 06:31] VITALS: BP 126/65; PULSE 100
[2021-03-11] MEDS: Tamsulosin HCl 0.4 MG Capsule PO (06:31)
[2021-03-11] MEDS: Glucerna Shake 120 ML LIQUID PO ×4 (06:31→20:44)
[2021-03-11] MEDS: Loperamide 2 MG Capsule PO ×2 (06:31→17:33)
[2021-03-11] MEDS: hydrALAZINE 50 MG Tablet PO ×2 (06:31→17:34)
[2021-03-11] MEDS: Menthol/Lanolin/Calamine/Znox 113 GM Tube 1 APPLIC TOPICAL ×2 (06:37→17:29)
[2021-03-11 06:41] LABS: Bedside Glucose 92 mg/dL (70-110)
[2021-03-11 11:00] LABS: Bedside Glucose 132 mg/dL (70-110)
--- NOTE | 2021-03-11 11:00 | NURSING ---
Lillie PEANUT SHAKER in room to see resident. Rosalind PT, assessed resident and states resident transfers with 2 assist. Atropy noticed to Rt foot and rt ankle. Does have brace that he got from Dr Ribera to wear if needed.
--- NOTE | 2021-03-11 11:04 | PN.RENAL_ITS ---
Subjective Subjective Following for DEISI on CKD stage 3 Sitting up in chair, no complaints. at bedside. Objective Data Objective Data Vital Signs: Vital Signs Temp Pulse Resp BP Pulse Ox 98.6 F 100 16 126/65 H 96 03/10/21 17:07 03/11/21 06:31 03/10/21 17:07 03/11/21 06:31 03/10/21 17:07 Oxygen Delivery Method Room Air Weight: 66.72 kg Body Mass Index (BMI) 22.4 Intake & Output: Intake and Output for Last 24 Hours 03/09/21 03/10/21 03/11/21 23:59 23:59 23:59 Intake Total 240 / 240 240 / 240 Output Total 1375 / 1375 Balance 240 / 240 -1135 / -1135 Lab / Micro Data Result Diagrams: 03/11/21 05:34 03/11/21 05:34 Labs: Laboratory Results - last 24 hr 03/10/21 17:30: POC Glucose 140 H 03/10/21 22:47: POC Glucose 103 03/11/21 05:34: WBC 6.3, RBC 2.81 L, Hgb 7.6 L, Hct 24.8 L, MCV 88.3, MCH 27.0, MCHC 30.6 L, RDW Std Deviation 48.9 H, RDW Coeff of Darian 14.9 H, Plt Count 204, MPV 9.4, Immature Gran % (Auto) 0.900, Neut % (Auto) 69.4, Lymph % (Auto) 12.3 L , [place] % (Auto) 13.3 H, Eos % (Auto) 3.5, Baso % (Auto) 0.6, Absolute Neuts (auto) 4.4, Absolute Lymphs (auto) 0.78 L, Nucleated RBC % 0 03/11/21 05:34: Sodium 141, Potassium 3.6, Chloride 111 H, Carbon Dioxide 20.0 L , Anion Gap 10, BUN 48 H, Creatinine 4.92 H, Estim Creat Clear Calc 11.30, Est GFR (MDRD) Af Amer 15 L, Est GFR (MDRD) Non-Af 12 L, BUN/Creatinine Ratio 9.8 L, Glucose 94, Calcium 8.3 L 03/11/21 06:36: POC Glucose 92 03/11/21 10:55: POC Glucose 132 H Radiography Diagnostic Testing: Radiology Impression KUB X-Ray 03/10/21 20:36 IMPRESSION: 1. Double-J ureteral stent in place. 2. No bowel obstruction. 3. Atherosclerotic calcifications in the pelvis. 4. Redemonstration of sclerotic appearance of the L4 and L5 vertebra as well as the sacrum which are findings are concerning for metastasis. Moderate hip joint degenerative changes. Electronically Signed: Ronald Farrell MD at 23:01 EST Tel , Service support , Physical Exam Narrative Const: NAD. A&Ox3 Resp: CTAB Cardio; S1 S2, RRR Extremity: no edema : indwelling akers with tea colored urine in bag Assessment & Plan Assessment/Plan (1) Acute kidney injury: (2) Chronic kidney disease, stage 3b: (3) Hypokalemia: (4) Hydronephrosis, left: PLAN: - Nonoliguric, hypovolemic DEISI on CKD stage 3 multifactorial from volume depletion/dehydration and obstruction (hydronephrosis status post left ureteral stent change on 03/05/2021). Creatinine peaked at 11.00 mg/dL on 03/04/2021. -Serum creatinine has been improving daily since admission, did not require PICK AND SHOVEL WORKER. Serum creatinine 4.9mg/dL today. -Patient is nonoliguric, no significant uremic symptoms. No acute indication for PICK AND SHOVEL WORKER. -off IVF -The patient was encouraged to push oral solute and fluid intake. Does not need to follow renal diet restrictions - CKD stage 3; baseline creatinine is around 2.2 mg/dL. Patient's creatinine was 2.2 mg/dL in December 2020. - Following with Dr. Hill, known to have hydronephrosis of left kidney. Noncontrast CT of abdomen and pelvis done on admission showed hydronephrosis left kidney. - bp acceptable on hydralazine - Serum bicarbonate level improved 20 mmol/L. This is likely due to DEISI on CKD. We will continue to watch bicarbonate. There is no need to increase supplemental sodium bicarbonate. He was on bicarb gtt. - BP is under reasonable control on hydralazine.
[2021-03-11 13:28] VITALS: BP 115/57; PULSE 102; RESP 16; TEMP 36.3; O2SAT 96
--- NOTE | 2021-03-11 13:33 | CASEMGMT ---
Addendum entered by Luz Nails 03/11/21 13:43: requesting Palliative referral. Referral made to [facility] via email. Order entered. Original Note: Social Work Met with patient and for initial assessment. Discussed code status and MOLST form. Pt confirmed full code. MOLST form communicated to , placed in chart. [facility] and continued stay is not guaranteed with each review. The goal is for pt to return home with . Discussed PLOF. Pt/ report the last 6 months pt has had medical decline and frequent hospitalizations thus has been assisting with all ADLs and IADLs, but prior to that decline, pt's PLOF was independent with everything. Pt was able to do the 13 steps to second story with bedroom, but has not been able to do that these last months and has the bed moved on the 1st floor. The full bath is on the 1st flr with a transfer tub bench. SW will continue to follow for DC planning. ALLY LuevanoW
[2021-03-11] MEDS: Tuberculin,Purif.prot.deriv. 50 TU/ML Vial 0.1 ML ID (14:35)
--- NOTE | 2021-03-11 16:14 | CHAPLAIN ---
Type of Pastoral Visit _x__ Initial Visit ___ Follow-up Visit ___ On-call Visit ___ General Patient Visit ___ Spiritual Assessment ___ Family Conference ___ Bereavement ___ Rapid Response ___ Code Blue ___ Other (describe below) Pastoral Care Referral From _x__ Patient ___ Family ___ Nurse ___ Physician ___ Manager Heart Failure ___ Early Childhood Educator Aide ___ Other (describe below) Sacrament/Intervention _x__ Active listening ___ Anointing ___ Sikh ___ Bereavement ___ Communion _x__ Penny exploration ___ ___ Life review _x__ Prayer ___ Reconciliation ___ Sacrament of Sick _x__ Supportive presence ___ Wedding ___ Other (describe below) Pastoral Comments patient and spouse both in room sitting quietly; spouse does more of the talking; pt is not very expressive; pt would like to just get home soon; pt does have a anglican connection; prayer accepted
[2021-03-11 16:26] LABS: Bedside Glucose 165 mg/dL (70-110)
[2021-03-11 17:34] VITALS: PULSE 108
--- NOTE | 2021-03-11 18:02 | RAD_ITS ---
INDICATION: foot pain EXAMINATION/TECHNIQUE: X-RAY - RIGHT XR Foot Min 3 Views 3 VIEWS COMPARISON: None. FINDINGS: SOFT TISSUES: No soft tissue swelling or gas. No radiopaque foreign body. BONES/JOINTS: There is normal bony alignment however extensive osteopenia is noted. No fractures or focal destructive bony process noted. RAD/Foot min 3 Views IMPRESSION: 1. Diffuse osteopenia focal areas of periarticular osteopenia noted however no fracture or acute destructive bony process noted. Electronically Signed: Mark Mcdonald MD at 19:20 EST Tel , Service support ,
--- NOTE | 2021-03-11 18:10 | RAD_ITS ---
INDICATION: ankle pain EXAMINATION/TECHNIQUE: X-RAY - RIGHT XR Ankle Min 3 Views 3 VIEWS COMPARISON: None. FINDINGS: SOFT TISSUES: No soft tissue swelling or gas. No radiopaque foreign body. BONES/JOINTS: Diffuse osteopenia, no evidence of fractures or malalignment. Joint space maintained. RAD/Ankle min 3 Views IMPRESSION: Extensive diffuse osteopenia, no evidence however of fracture or malalignment. Joint space maintained. Electronically Signed: Mark Mcdonald MD at 19:21 EST Tel , Service support ,
--- NOTE | 2021-03-11 18:11 | CON.PCM_ITS ---
Assessment & Plan Assessment/Plan (1) Tendinitis of ankle or foot: (2) Foot pain, right: (3) Ankle pain, right: (4) Other hereditary and idiopathic neuropathies: (5) Diabetes mellitus: PLAN: Evaluation performed. He has chronic right foot/ankle pain. Ordered new right foot and ankle xrays. Ordered Lower extremity arterial study - noninvasive although pedal pulses are palpable. New MRI right ankle is indicated for further evaluation which will be ordered. Will also order EMG/NCV testing for further evaluation. Will follow up with patient after testing completed. In meantime patient to use [employer] AFO right foot/ankle with all weightbearing and ambulation. HPI Consult Data Date of Consult: 03/11/21 HPI Narrative Reason for Consultation: Right foot/ankle pain HPI Narrative: ALEA SALGADO, is a 80 M who complains of chronic right foot/ankle pain. He relates pain is present at both rest and with activity. He has weakness to the foot and ankle. He does have a [employer] AFO but has not been using it. He relates his is going to bring it in tomorrow for him. Patient relates he has been receiving therapy. He relates overall the pain is worsening over the past several months. [facility] Medical History Anemia Anemia due to chronic kidney disease Arthritis Back pain Cancer Cancer of prostate Cancer of rectum Chronic kidney disease Chronic kidney disease, stage 3b Depression Diabetes Diarrhea Dietary restriction Former smoker H/O fungal disease Hearing loss, left Hearing loss, right High cholesterol History of echocardiogram History of edema History of immunosuppression therapy History of pain when walking Hx of transesophageal echocardiography (SHANNAN) for monitoring Hypertension Insulin dependent diabetes mellitus Kidney disease Osteoporosis Restless legs Self-catheterizes urinary bladder Tendonitis of ankle Walker as ambulation aid Wears dentures Wears glasses Wears hearing aid in both ears Home Medications cholecalciferol (vitamin D3) 1,000 unit PO DAILY 12/08/19 [History Last Taken 09/18/20] loperamide 2 mg PO BID 12/08/19 [History Last Taken 01/01/21 09:00] acetaminophen [Tylenol Extra Strength] 1,000 mg PO BID 09/18/20 [History Last Taken 09/18/20] Lantus Solostar U-100 Insulin 10 unit SUBCUT DAILY 12/25/20 [History Last Taken Unknown] mirtazapine 15 mg PO QHS 03/04/21 [History Last Taken Unknown] sulfamethoxazole-trimethoprim 1 tab PO BID 03/04/21 [History Last Taken Unknown] acetaminophen [Tylenol] 650 mg PO Q4H PRN PRN #0 tab 03/10/21 [Rx Last Taken Unknown] cefdinir 300 mg PO DAILY@2200 03/10/21 [History Last Taken Unknown] hydralazine 50 mg PO BID 03/10/21 [History Last Taken Unknown] sodium bicarbonate 650 mg PO BID 03/10/21 [History Last Taken Unknown] tamsulosin 0.4 mg PO DAILY 03/10/21 [History Last Taken Unknown] Allergy/AdvReac Type Severity Reaction Status Date / Time No Known Allergies Allergy Verified 02/26/21 10:07 Family History Mother Diabetes Father CVA (cerebral vascular accident) Sister Heart disease Brother Heart disease Surgical History H/O partial resection of colon History of renal stent Hx of cystoscopy Hx of cystoscopy Hx of transurethral resection of prostate Social History household members: spouse housing: house current occupational status: retired Smoking Status: Former smoker alcohol intake: never substance use type: does not use Physical Exam Const alert, oriented x3 and no apparent distress Extremity Extremity Narrative: Right foot/ankle: No open lesions, no erythema, no ecchymosis, no maloder, no fluctuance, no crepitus present, no visble abscess, no drainage, pedal pulses are palpable DP and PT, CFT < 2 seconds to all toes right foot, there is decreased sensation and motor function to the right foot/ankle which is chronic, there is also decreased sensation and motor function to the left foot but is not as severe as left foot. There is weakness to the right foot/ankle with patient having great difficulity moving the foot/ankle - this is chronic. Calf is soft and supple bilateral with no calf pain. There is some chronic diffuse edema bilateral lower extremity. Lab / Micro Data Result Diagrams: 03/11/21 05:34 03/11/21 05:34 Labs: Laboratory Results - last 24 hr 03/10/21 22:47: POC Glucose 103 03/11/21 05:34: WBC 6.3, RBC 2.81 L, Hgb 7.6 L, Hct 24.8 L, MCV 88.3, MCH 27.0, MCHC 30.6 L, RDW Std Deviation 48.9 H, RDW Coeff of Darian 14.9 H, Plt Count 204, MPV 9.4, Immature Gran % (Auto) 0.900, Neut % (Auto) 69.4, Lymph % (Auto) 12.3 L , [place] % (Auto) 13.3 H, Eos % (Auto) 3.5, Baso % (Auto) 0.6, Absolute Neuts (auto) 4.4, Absolute Lymphs (auto) 0.78 L, Nucleated RBC % 0 03/11/21 05:34: Sodium 141, Potassium 3.6, Chloride 111 H, Carbon Dioxide 20.0 L , Anion Gap 10, BUN 48 H, Creatinine 4.92 H, Estim Creat Clear Calc 11.30, Est GFR (MDRD) Af Amer 15 L, Est GFR (MDRD) Non-Af 12 L, BUN/Creatinine Ratio 9.8 L, Glucose 94, Calcium 8.3 L 03/11/21 06:36: POC Glucose 92 03/11/21 10:55: POC Glucose 132 H 03/11/21 16:07: POC Glucose 165 H Radiology Impression KUB X-Ray 03/10/21 20:36 IMPRESSION: 1. Double-J ureteral stent in place. 2. No bowel obstruction. 3. Atherosclerotic calcifications in the pelvis. 4. Redemonstration of sclerotic appearance of the L4 and L5 vertebra as well as the sacrum which are findings are concerning for metastasis. Moderate hip joint degenerative changes. Electronically Signed: Ronald Farrell MD at 23:01 EST Tel , Service support ,
[2021-03-11] MEDS: Cefdinir 300 MG Capsule PO (20:44)
[2021-03-11] MEDS: Mirtazapine 15 MG Tablet PO (20:44)
[2021-03-11 21:40] LABS: Bedside Glucose 186 mg/dL (70-110)
[2021-03-11 23:30] VITALS: PULSE 110; RESP 14; O2SAT 97
[2021-03-12 05:37] LABS: Hematocrit 26.8 % (40-54); Hemoglobin 7.9 g/dL (13.0-16.5)
[2021-03-12 06:22] VITALS: BP 135/62; PULSE 97
[2021-03-12] MEDS: hydrALAZINE 50 MG Tablet PO ×2 (06:22→17:22)
[2021-03-12] MEDS: Sodium Bicarbonate 650 MG Tablet PO ×2 (06:23→17:22)
[2021-03-12] MEDS: Menthol/Lanolin/Calamine/Znox 113 GM Tube 1 APPLIC TOPICAL ×2 (06:23→17:22)
[2021-03-12] MEDS: Tamsulosin HCl 0.4 MG Capsule PO (06:23)
[2021-03-12] MEDS: Glucerna Shake 120 ML LIQUID PO ×4 (06:23→21:21)
[2021-03-12] MEDS: Loperamide 2 MG Capsule PO ×2 (06:23→17:22)
[2021-03-12 06:31] LABS: Bedside Glucose 94 mg/dL (70-110)
--- NOTE | 2021-03-12 06:38 | CPS ---
Addendum entered and electronically signed by Maria Esther Singletary RRT 03/12/21 09:09: Contacted Dr. Ribera's office to update him that pt testing for NCS/EMG needs to be on OP basis. Original Note: Contacted Selena, pt's nurse, let her know NCS/EMG ordered last evening by Dr. Ribera is unable to be done while patient is in hospital/TCU. He will need placed on the outpatient schedule through central wide scheduling. There is no physician to perform EMG or interpret testing for inpatients.
--- NOTE | 2021-03-12 09:33 | NURSING ---
Pre-cert completed for MRI Insurance stated no pre-cert required and pt would only be responsible for $25.00 Co-pay. Ref # [id number]
--- NOTE | 2021-03-12 10:47 | PCM.PN.RX ---
Progress Note - Pharmacy Subjective: [] TCU Admission Objective: Allergies No Known Allergies Allergy (Verified 02/26/21 10:07) Current Medications Generic Name Dose Route Start Last Admin Trade Name Chip PRN Reason Stop Dose Admin Acetaminophen 1,000 mg 03/10/21 20:27 03/11/21 06:30 Acetaminophen 500 Mg Tablet PO 1,000 mg Q6H PRN PRN Administration Pain Score 1-10 Bisacodyl 10 mg 03/10/21 17:17 Bisacodyl 10 Mg Suppository RC DAILY PRN Constipation Calamine/Phenol 1 applic 03/10/21 18:00 03/12/21 06:23 Menthol/Lanolin/Calamine/Znox 113 Gm Tube TOPICAL 1 applic BID LOLA Administration Protocol Cefdinir 300 mg 03/10/21 22:00 03/11/21 20:44 Cefdinir 300 Mg Capsule PO 03/14/21 22:01 300 mg DAILY@2200 LOLA Administration Hydralazine HCl 50 mg 03/10/21 18:00 03/12/21 06:22 Hydralazine 50 Mg Tablet PO 50 mg BID LOLA Administration Hydrocortisone 1 applic 03/11/21 08:28 Hydrocortisone 2.5% Crm TOPICAL BID PRN PRN RASH/TOPICAL IRRITATION Protocol Insulin Glargine 10 units 03/11/21 06:00 03/12/21 06:23 Insulin Glargine 100 Units/Ml Pen SC 10 u DAILY LOLA Administration Loperamide HCl 2 mg 03/10/21 18:00 03/12/21 06:23 Loperamide 2 Mg Capsule PO 2 mg BID LOLA Administration Mirtazapine 15 mg 03/10/21 22:00 03/11/21 20:44 Mirtazapine 15 Mg Tablet PO 15 mg QHS LOLA Administration Nutritional Formula (Lactose Free) 120 ml 03/10/21 22:00 03/12/21 06:23 Glucerna Shake 120 Ml Liquid PO 120 ml 4X/DAY LOLA Administration Sodium Bicarbonate 650 mg 03/10/21 18:00 03/12/21 06:23 Sodium Bicarbonate 650 Mg Tablet PO 650 mg BID LOLA Administration Tamsulosin HCl 0.4 mg 03/11/21 06:00 03/12/21 06:23 Tamsulosin Hcl 0.4 Mg Capsule PO 0.4 mg DAILY LOLA Administration Tuberculin PPD 0.1 ml 03/18/21 10:00 Tuberculin,Purif.Prot.Deriv. 50 Tu/Ml Vial ID 03/18/21 10:01 X1 ONE Problem List (Last Reviewed 03/10/21 @ 20:[address] Taras Patiño MD) Other hereditary and idiopathic neuropathies (Acute) Ankle pain, right (Acute) Foot pain, right (Acute) Tendinitis of ankle or foot (Acute) Rectal cancer (Acute) Colon cancer (Acute) Appetite loss (Acute) Diabetes mellitus (Acute) Benign prostate hyperplasia (Acute) Hypertension (Chronic) Chronic diarrhea (Chronic) Vitamin D deficiency (Acute) Prostate cancer (Acute) Hydronephrosis, left (Acute) Pyelonephritis of left kidney (Acute) Ureteral obstruction, left (Acute) Hyperkalemia (Acute) Chronic kidney disease, stage 3b (Acute) Acute kidney injury (Acute) Debility (Acute) Hypokalemia (Acute) Vital Signs Temp Pulse Resp BP Pulse Ox 97.4 F L 97 14 135/62 H 97 03/11/21 13:28 03/12/21 06:22 03/11/21 23:30 03/12/21 06:22 03/11/21 23:30 Oxygen Delivery Method Room Air Weight: 66.72 kg Body Mass Index (BMI) 22.4 Sodium 141 mmol/L (136-145) 03/11/21 05:34 Potassium 3.6 mmol/L (3.5-5.1) 03/11/21 05:34 Chloride 111 mmol/L (98-107) H 03/11/21 05:34 Carbon Dioxide 20.0 mmol/L (21.0-32.0) L 03/11/21 05:34 Anion Gap 10 (5-15) 03/11/21 05:34 BUN 48 mg/dL (7-18) H 03/11/21 05:34 Creatinine 4.92 mg/dL (0.70-1.30) H 03/11/21 05:34 Est GFR (MDRD) Af Amer 15 mL/min (>60) L 03/11/21 05:34 Est GFR (MDRD) Non-Af 12 mL/min (>60) L 03/11/21 05:34 BUN/Creatinine Ratio 9.8 RATIO (10-20) L 03/11/21 05:34 Glucose 94 mg/dL (74-106) 03/11/21 05:34 Assessment/Plan: 1) Pain: Acetaminophen 1000mg po q6h prn for pain 1-10. Please continue to monitor prn usage and for signs/symptoms of increased/decreased pain 2) Appetite Loss: Mirtazapine 15mg po qhs. See cast iron dipper note from 03/11/21 about dietary intake and weight loss 3) Hypertension: Hydralazine 50mg po bid. Pts average pulse is 103, and average bp is 122/59. Please continue to monitor pts pulse and bp. 4) Diabetes: Lantus 10 units subq once daily. Pts average blood glucose is 128. Please continue to monitor pts blood glucose. *5)UTI: Cefdinir 300mg po bid thru 03/14/21. Per clinical pharmacology, pts with a CrCl less than 30 mls/min are recommended to be dosed at 300mg once daily. Pt has a SrCr of 4.92, and a CrCl of 11.3 mls/min. Please consider changing pts dose from 300mg bid, to 300mg daily due to renal function. Thanks Psychotropic Medications: Unnecessary Medications: Bowel Regimen: Bisacodyl 10mg rectally daily prn for constipation. Please continue to monitor prn usage and for signs/symptoms of constipation/diarrhea Date of Note:: 03/12/21
--- NOTE | 2021-03-12 10:58 | PCM.HP.PAL ---
HPI - General General Date of Admission: 03/10/21 HPI Narrative ALEA SALGADO, is a 80 M who presented to the ER on 03/04/2021 with a creatinine over 10 with bloody urine. Past medical history listed below. Patient has bilateral stents and follows Dr. Hill. He was given IV fluids and CT showed left hydronephrosis. Consulted Dr Hill and cystoscopy on 03/05 with left stent replacement. He received IV fluids, Zosyn. Kayexalate given for potassium 5.3. IV Bicarb drip. He was given 2 units of PRBCs on 03/06/2021 Trending creatinine to 5 from 10 with baseline of 2.2. IV fluids were stopped and antibiotic transitioned to Cefdinir and transferred to TCU for PT/OT and strengthening prior to discharge home with . Palliative had been discussed at previous admission for acute renal failure on April of 2020 at which time, Palliative was refused at discharge. Seen today in his TCU room. Well-groomed with at bedside. Appears comfortable. Denies any complaints at this time. Voices fatigue with hospitalization. Discussed Palliative care. familiar and states that they have discussed and patient was not appropriate at the time. Clarified that it was not Hospice care and noted to both be resistant to further conversation. Reports that she has a packet and everything she needs to reach out to Palliative if needed. Patient was noted shaking his head to any further discussion or need of Palliative care at this time. [facility] Medical History Anemia Anemia due to chronic kidney disease Arthritis Back pain Cancer Cancer of prostate Cancer of rectum Chronic kidney disease Chronic kidney disease, stage 3b Depression Diabetes Diarrhea Dietary restriction Former smoker H/O fungal disease Hearing loss, left Hearing loss, right High cholesterol History of echocardiogram History of edema History of immunosuppression therapy History of pain when walking Hx of transesophageal echocardiography (SHANNAN) for monitoring Hypertension Insulin dependent diabetes mellitus Kidney disease Osteoporosis Restless legs Self-catheterizes urinary bladder Tendonitis of ankle Walker as ambulation aid Wears dentures Wears glasses Wears hearing aid in both ears Home Medications cholecalciferol (vitamin D3) 1,000 unit PO DAILY 12/08/19 [History Last Taken 09/18/20] loperamide 2 mg PO BID 12/08/19 [History Last Taken 01/01/21 09:00] acetaminophen [Tylenol Extra Strength] 1,000 mg PO BID 09/18/20 [History Last Taken 09/18/20] Lantus Solostar U-100 Insulin 10 unit SUBCUT DAILY 12/25/20 [History Last Taken Unknown] mirtazapine 15 mg PO QHS 03/04/21 [History Last Taken Unknown] sulfamethoxazole-trimethoprim 1 tab PO BID 03/04/21 [History Last Taken Unknown] acetaminophen [Tylenol] 650 mg PO Q4H PRN PRN #0 tab 03/10/21 [Rx Last Taken Unknown] cefdinir 300 mg PO DAILY@2200 03/10/21 [History Last Taken Unknown] hydralazine 50 mg PO BID 03/10/21 [History Last Taken Unknown] sodium bicarbonate 650 mg PO BID 03/10/21 [History Last Taken Unknown] tamsulosin 0.4 mg PO DAILY 03/10/21 [History Last Taken Unknown] Allergy/AdvReac Type Severity Reaction Status Date / Time No Known Allergies Allergy Verified 02/26/21 10:07 Family History Mother Diabetes Father CVA (cerebral vascular accident) Sister Heart disease Brother Heart disease Surgical History H/O partial resection of colon History of renal stent Hx of cystoscopy Hx of cystoscopy Hx of transurethral resection of prostate Social History household members: spouse housing: house current occupational status: retired Smoking Status: Former smoker alcohol intake: never substance use type: does not use ROS Constitutional Constitutional: Reports systems reviewed and no addt'l complaints, except as documented Cardiovascular Cardiovascular: Reports systems reviewed and no addt'l complaints, except as documented Respiratory/Chest Respiratory/Chest: Reports dyspnea; Denies dyspnea on exertion Gastrointestinal Gastrointestinal: Reports none Genitourinary Genitourinary: Reports hematuria; Denies abdominal discomfort or flank pain Physical Exam Const alert, oriented x3 and no apparent distress General Appearance: cooperative and comfortable Orientation / Consciousness: awake, oriented to person, oriented to place and oriented to time Resp normal respiratory effort and No no retractions Effort and Inspection: able to speak in complete sentences and symmetric chest movement Bladder / Kidney Exam: catheter in place urethral Neuro CN's II-XII intact bilaterally Assessment & Plan Assessment/Plan (1) Diabetes mellitus: (2) Prostate cancer: (3) Acute kidney injury: (4) Chronic kidney disease, stage 3b: (5) Rectal cancer: (6) Colon cancer: (7) Debility: PLAN: 80-year-old male with history of colon cancer and prostate cancer treated with radiation, hospitalized for acute kidney failure/ stent replacement and antibiotic therapy. Seen today for palliative follow up for previous consultation in 04/2020. Spoke to patient and and does not have interest in Palliative care at this time. Weakness/Debility/Renal failure/ Hx of prostate and colon cancer: Palliative care would be willing to follow patient and provide support of symptoms related to above diagnoses and symptom management of the above. verified that she has a Palliative packet and will reach out to Palliative care if they feel they would benefit from services. Declined further discussion at this time. Thank you for the opportunity to participate in this patient's care, please do not hesitate to contact [facility] Palliative with any further questions or concerns. Palliative direct line is [phone]. Patient and to reach out to Palliative if interested in services. This note was generated with [employer] dictation software. It may contain incorrect words, spelling, and punctuation that were not noted in checking the note before signing. Time in: 10:30 AM Time out: 11:00 AM
[2021-03-12 11:00] LABS: Bedside Glucose 111 mg/dL (70-110)
[2021-03-12 15:08] VITALS: BP 142/63; PULSE 101; RESP 18; TEMP 36.8; O2SAT 100
[2021-03-12 16:56] LABS: Bedside Glucose 104 mg/dL (70-110)
[2021-03-12 17:22] VITALS: BP 142/63; PULSE 101
[2021-03-12] MEDS: Mirtazapine 15 MG Tablet PO (21:21)
[2021-03-12] MEDS: Cefdinir 300 MG Capsule PO (21:21)
[2021-03-13] VITALS: PULSE 102; RESP 16; O2SAT 93
[2021-03-13 06:32] VITALS: BP 115/58; PULSE 88
[2021-03-13] MEDS: hydrALAZINE 50 MG Tablet PO ×2 (06:32→17:03)
[2021-03-13] MEDS: Menthol/Lanolin/Calamine/Znox 113 GM Tube 1 APPLIC TOPICAL ×2 (06:32→17:05)
[2021-03-13] MEDS: Sodium Bicarbonate 650 MG Tablet PO ×2 (06:33→17:04)
[2021-03-13] MEDS: Loperamide 2 MG Capsule PO ×2 (06:33→17:04)
[2021-03-13] MEDS: Tamsulosin HCl 0.4 MG Capsule PO (06:33)
[2021-03-13 06:51] LABS: Bedside Glucose 97 mg/dL (70-110)
--- NOTE | 2021-03-13 07:28 | PCM.PROGNOTE ---
Subjective Subjective Patient was seen today for follow up on feet/ankles. He is resting comfortably in bed with no new complaints. No complaints of fever, chills, nausea or vomiting. Objective Data Objective Data Vital Signs: Vital Signs Temp Pulse Resp BP Pulse Ox 98.3 F 88 16 115/58 L 93 03/12/21 15:08 03/13/21 06:32 03/13/21 00:00 03/13/21 06:32 03/13/21 00:00 Oxygen Delivery Method Room Air Weight: 66.72 kg Body Mass Index (BMI) 22.4 Intake & Output: Intake and Output for Last 24 Hours 03/11/21 03/12/21 03/13/21 23:59 23:59 23:59 Intake Total 720 / 720 300 / 300 Output Total 1775 / 1775 2275 / 2275 1200 / 1200 Balance -1055 / -1055 -1974 / -1974 -1200 / -1200 Lab / Micro Data Result Diagrams: 03/12/21 05:19 03/11/21 05:34 Labs: Laboratory Results - last 24 hr 03/12/21 10:48: POC Glucose 111 H 03/12/21 16:45: POC Glucose 104 03/13/21 06:41: POC Glucose 97 Physical Exam Const alert, oriented x3 and no apparent distress Extremity Extremity Narrative: Right/left foot/ankle: No open lesions, no erythema, no ecchymosis, no maloder, no fluctuance, no crepitus present, no visble abscess, no drainage, pedal pulses are palpable DP and PT, CFT < 2 seconds to all toes, there is decreased sensation and motor function to the right worse than left foot/ankle which is chronic. There is diffuse weakness to the right foot/ankle with patient having great difficulty moving the foot/ankle, there is some diffuse weakness to the left foot/ankle - this is chronic. Calf is soft and supple bilateral with no calf pain. There is some chronic diffuse edema bilateral lower extremity. Assessment & Plan Assessment/Plan (1) Tendinitis of ankle or foot: (2) Foot pain, right: (3) Ankle pain, right: (4) Other hereditary and idiopathic neuropathies: (5) Diabetes mellitus: PLAN: Evaluation performed. He has chronic right foot/ankle pain with diffuse weakness. Reviewed right foot/ankle xrays as well as MRI results. Reviewed LEAS results. There is DJD noted as well as torn ATFL right ankle. It is recommended to treat this nonsurgically due to patients other medical problems - surgery would be high risk. However, patient has diffuse weakness and I believe this may be due to his peripheral neuropathy. I did order bilateral LE EMG/NCV testing for further evaluation however I was informed by nursing he has to be an outpatient for this test to be completed. It is recommended he get this test, as well as possible neurology referral. In meantime patient to use [place] AFO right foot/ankle with shoe with all weightbearing and ambulation. Will also ordered left foot/ankle xrays and [place] AFO for the left side as well. Podiatry will continue to follow patient.
[2021-03-13] MEDS: Glucerna Shake 120 ML LIQUID PO ×4 (08:41→21:27)
--- NOTE | 2021-03-13 12:40 | RAD_ITS ---
History: pain Left ankle 3 views: Findings. No acute fracture or dislocation. No joint space abnormality. Dorsal and plantar calcaneal spurring noted. Soft tissue swelling noted. No radiopaque foreign body. IMPRESSION: Soft tisuue swelling. at 1528 Reported and signed by: Rafa Larsen MD Electronically Signed: Rafa Larsen MD at 15:27 EST Tel , Service support , RAD/Ankle min 3 Views
--- NOTE | 2021-03-13 12:40 | RAD_ITS ---
EXAM: XR LEFT FOOT COMPLETE, 3 OR MORE VIEWS : 1940 CLINICAL INDICATION: pain TECHNIQUE: Frontal, lateral and oblique views of the left foot. This report was created using [employer] report generation technology. COMPARISON: None. FINDINGS: BONES/JOINTS: Osteopenic changes of the bony structures. Mild narrowing of the first MTP joint. Dorsal and plantar calcaneal spurring noted. No acute fracture. No subluxation. Normal alignment. No sclerotic or destructive changes observed. SOFT TISSUES: Mild soft tissue prominence of the forefoot. No soft tissue swelling or gas. No radiopaque foreign body. RAD/Foot min 3 Views IMPRESSION: 1. No acute bone or joint abnormality. 2. Osteoporosis. 3. Soft tissue swelling. at 1530 Reported and signed by: Rafa Larsen MD Electronically Signed: Rafa Larsen MD at 15:29 EST Tel , Service support ,
[2021-03-13 13:16] VITALS: BP 106/50; PULSE 93; RESP 18; TEMP 36.7; O2SAT 98
--- NOTE | 2021-03-13 13:19 | NURSING ---
Contacted patient's insurance, per Cindy Jimenez. the patient does not need a precert for a whole body scan. Call reference number [id number]
[2021-03-13 17:03] VITALS: PULSE 93
[2021-03-13] MEDS: Mirtazapine 15 MG Tablet PO (21:26)
[2021-03-13] MEDS: Cefdinir 300 MG Capsule PO (21:26)
[2021-03-13 21:30] VITALS: PULSE 94; RESP 16; O2SAT 95
[2021-03-14 06:02] VITALS: BP 113/61; PULSE 97
[2021-03-14] MEDS: Loperamide 2 MG Capsule PO ×2 (06:02→17:00)
[2021-03-14] MEDS: Tamsulosin HCl 0.4 MG Capsule PO (06:02)
[2021-03-14] MEDS: Sodium Bicarbonate 650 MG Tablet PO ×2 (06:02→16:59)
[2021-03-14] MEDS: hydrALAZINE 50 MG Tablet PO ×2 (06:02→16:59)
[2021-03-14] MEDS: Menthol/Lanolin/Calamine/Znox 113 GM Tube 1 APPLIC TOPICAL ×2 (06:02→17:00)
[2021-03-14 06:09] LABS: Anion Gap 8 (5-15); BUN 44 mg/dL (7-18); BUN/Creat Ratio 10.5 RATIO (10-20); Calcium,Total 8.2 mg/dL (8.5-10.1); Chloride 110 mmol/L (98-107); Creatinine, Serum 4.18 mg/dL (0.70-1.30); EST Glomerular Filtration Rate 15 mL/min (>60); Est Glom Filt Rate - Afr Amer 18 mL/min (>60); Glucose 98 mg/dL (74-106); Potassium 3.8 mmol/L (3.5-5.1); Sodium Level 139 mmol/L (136-145)
[2021-03-14 06:10] LABS: Bedside Glucose 100 mg/dL (70-110)
[2021-03-14 07:48] LABS: Vitamin D,25 Hydroxy 48.8 ng/mL
--- NOTE | 2021-03-14 09:21 | NURSING ---
pt off unit to bone scan. akers empty.
[2021-03-14] MEDS: Glucerna Shake 120 ML LIQUID PO ×3 (11:55→21:09)
[2021-03-14 13:42] VITALS: BP 99/60; PULSE 103; RESP 14; TEMP 36.4; O2SAT 98
[2021-03-14 13:43] VITALS: PULSE 103; RESP 14; O2SAT 98
--- NOTE | 2021-03-14 15:24 | PCM.PN.REN ---
Subjective Subjective Resting in bed, at bedside. No complaints. No N/V/D Objective Data Objective Data Vital Signs: Vital Signs Temp Pulse Resp BP Pulse Ox 97.5 F L 103 H 14 99/60 98 03/14/21 13:42 03/14/21 13:43 03/14/21 13:43 03/14/21 13:42 03/14/21 13:43 Oxygen Delivery Method Room Air Weight: 66.72 kg Body Mass Index (BMI) 22.4 Intake & Output: Intake and Output for Last 24 Hours 03/12/21 03/13/21 03/14/21 23:59 23:59 23:59 Intake Total 300 / 300 960 / 960 600 / 600 Output Total 2275 / 2275 1950 / 1950 2150 / 2150 Balance -1974 / -1974 -990 / -990 -1550 / -1550 Lab / Micro Data Result Diagrams: 03/12/21 05:19 03/14/21 05:31 Labs: Laboratory Results - last 24 hr 03/14/21 05:31: Sodium 139, Potassium 3.8, Chloride 110 H, Carbon Dioxide 21.0, Anion Gap 8, BUN 44 H, Creatinine 4.18 H, Estim Creat Clear Calc 13.30, Est GFR (MDRD) Af Amer 18 L, Est GFR (MDRD) Non-Af 15 L, BUN/Creatinine Ratio 10.5, Glucose 98, Calcium 8.2 L 03/14/21 05:31: Vitamin D 25-Hydroxy 48.8 03/14/21 05:57: POC Glucose 100 Micro: Microbiology 03/13/21 14:03 Nasal Secretion SARS-CoV-2 Antigen (Rapid) - Final Radiography Diagnostic Testing: Radiology Impression Foot X-Ray 03/11/21 18:02 IMPRESSION: 1. Diffuse osteopenia focal areas of periarticular osteopenia noted however no fracture or acute destructive bony process noted. Electronically Signed: Mark Mcdonald MD at 19:20 EST Tel , Service support , Ankle X-Ray 03/11/21 18:10 IMPRESSION: Extensive diffuse osteopenia, no evidence however of fracture or malalignment. Joint space maintained. Electronically Signed: Mark Mcdonald MD at 19:21 EST Tel , Service support , Ankle X-Ray 03/13/21 12:40 Foot X-Ray 03/13/21 12:40 IMPRESSION: 1. No acute bone or joint abnormality. 2. Osteoporosis. 3. Soft tissue swelling. at 1530 Reported and signed by: Rafa Larsen MD Electronically Signed: Rafa Larsen MD at 15:29 EST Tel , Service support , Physical Exam Narrative Const: NAD. A&Ox3 Resp: CTAB Cardio; S1 S2, RRR Extremity: no edema Assessment & Plan Assessment/Plan (1) Acute kidney injury: (2) Chronic kidney disease, stage 3b: (3) Hypokalemia: (4) Hydronephrosis, left: PLAN: - Nonoliguric, hypovolemic DEISI on CKD stage 3 multifactorial from volume depletion/dehydration and obstruction (hydronephrosis status post left ureteral stent change on 03/05/2021). Creatinine peaked at 11.00 mg/dL on 03/04/2021. -Serum creatinine has been improving daily since admission, did not require LOCAL COORDINATOR. Serum creatinine 4.18mg/dL today. -Patient is nonoliguric, no significant uremic symptoms. No acute indication for LOCAL COORDINATOR. -The patient was encouraged to push oral solute and fluid intake. Does not need to follow renal diet restrictions - CKD stage 3; baseline creatinine is around 2.2 mg/dL. Patient's creatinine was 2.2 mg/dL in December 2020. - Following with Dr. Hill, known to have hydronephrosis of left kidney. Noncontrast CT of abdomen and pelvis done on admission showed hydronephrosis left kidney. - Serum bicarbonate level improved 21 mmol/L. - BP has been under reasonable control on hydralazine, today some lower readings, will add holding parameters to hydralazine.
[2021-03-14 16:59] VITALS: BP 99/60; PULSE 103
[2021-03-14] MEDS: Cefdinir 300 MG Capsule PO (21:10)
[2021-03-14] MEDS: Mirtazapine 15 MG Tablet PO (21:11)
[2021-03-15 06:21] LABS: Bedside Glucose 98 mg/dL (70-110)
[2021-03-15 06:32] VITALS: BP 119/58; PULSE 83
[2021-03-15] MEDS: Glucerna Shake 120 ML LIQUID PO ×4 (06:33→21:00)
[2021-03-15] MEDS: Loperamide 2 MG Capsule PO ×2 (06:33→17:36)
[2021-03-15] MEDS: Tamsulosin HCl 0.4 MG Capsule PO (06:33)
[2021-03-15] MEDS: Sodium Bicarbonate 650 MG Tablet PO ×2 (06:33→17:36)
[2021-03-15 06:34] VITALS: PULSE 83
[2021-03-15] MEDS: Menthol/Lanolin/Calamine/Znox 113 GM Tube 1 APPLIC TOPICAL ×2 (06:34→17:37)
[2021-03-15] MEDS: hydrALAZINE 50 MG Tablet PO (06:34)
[2021-03-15 14:26] VITALS: BP 101/56; PULSE 92; RESP 18; TEMP 36.8; O2SAT 97
[2021-03-15 18:05] VITALS: BP 103/64; PULSE 90
[2021-03-15 21:00] VITALS: PULSE 91; RESP 16; O2SAT 94
[2021-03-15] MEDS: Mirtazapine 15 MG Tablet PO (21:01)
[2021-03-16 06:31] VITALS: BP 121/62; PULSE 87
[2021-03-16 06:32] VITALS: PULSE 87
[2021-03-16] MEDS: hydrALAZINE 50 MG Tablet PO ×2 (06:32→17:18)
[2021-03-16] MEDS: Loperamide 2 MG Capsule PO ×2 (06:33→17:19)
[2021-03-16] MEDS: Menthol/Lanolin/Calamine/Znox 113 GM Tube 1 APPLIC TOPICAL (06:33)
[2021-03-16] MEDS: Sodium Bicarbonate 650 MG Tablet PO ×2 (06:33→17:18)
[2021-03-16] MEDS: Tamsulosin HCl 0.4 MG Capsule PO (06:33)
[2021-03-16 06:35] LABS: Bedside Glucose 91 mg/dL (70-110)
[2021-03-16] MEDS: Glucerna Shake 120 ML LIQUID PO ×3 (06:35→17:19)
--- NOTE | 2021-03-16 08:49 | CON.PCM.UR_ITS ---
Assessment & Plan Assessment/Plan (1) Prostate cancer: (2) Hydronephrosis, left: (3) Pyelonephritis of left kidney: (4) Ureteral obstruction, left: (5) Chronic kidney disease, stage 3b: HPI Consult Data Date of Consult: 03/16/21 HPI Narrative HPI Narrative: ALEA SALGADO, is a 80 M who presents in rehab after admission to the hospital for acute renal failure pyelonephritis hydronephrosis of the left kidney that was worsening. He underwent admission bicarbonate drip was given in the hospital and with cystoscopy and stent change on the left side to larger stent this allowed for better draining of the left kidney the right kidney is atrophic and has a stent in place and is draining well. He has a history of radiation and significant scar tissue and blockage of both distal ureters managed with chronic stents he also has a significant amount of scar tissue and blockage in the prostatic channel he had been doing self intermittent catheterization but had been having difficulties in getting the catheter in. At this point the Judd catheter is in draining clear yellow urine. Urine cultures in the hospital grew out Klebsiella and some non-Zoila yeast this is been treated he is off all antibiotics currently urine is nice and clear. His creatinine is coming down to 4.1 but still not at his baseline. Plan will be to home with a Judd catheter, I do not expect him to urinate spontaneously and want to decompress the entire system, will have him stop the Flomax since he will either be with a Judd catheter or back to self- catheterization. Hopefully his creatinine will improve with time. He will need to follow-up with urology after discharge in about 2 months and will plan for stent changes in about 3 months from this point to keep this kidney is draining. Call with questions. Good I do some extra for consult [facility] Medical History Anemia Anemia due to chronic kidney disease Arthritis Back pain Cancer Cancer of prostate Cancer of rectum Chronic kidney disease Chronic kidney disease, stage 3b Depression Diabetes Diarrhea Dietary restriction Former smoker H/O fungal disease Hearing loss, left Hearing loss, right High cholesterol History of echocardiogram History of edema History of immunosuppression therapy History of pain when walking Hx of transesophageal echocardiography (SHANNAN) for monitoring Hypertension Insulin dependent diabetes mellitus Kidney disease Osteoporosis Restless legs Self-catheterizes urinary bladder Tendonitis of ankle Walker as ambulation aid Wears dentures Wears glasses Wears hearing aid in both ears Home Medications cholecalciferol (vitamin D3) 1,000 unit PO DAILY 12/08/19 [History Last Taken 09/18/20] loperamide 2 mg PO BID 12/08/19 [History Last Taken 01/01/21 09:00] acetaminophen [Tylenol Extra Strength] 1,000 mg PO BID 09/18/20 [History Last Taken 09/18/20] Lantus Solostar U-100 Insulin 10 unit SUBCUT DAILY 12/25/20 [History Last Taken Unknown] mirtazapine 15 mg PO QHS 03/04/21 [History Last Taken Unknown] sulfamethoxazole-trimethoprim 1 tab PO BID 03/04/21 [History Last Taken Unknown] acetaminophen [Tylenol] 650 mg PO Q4H PRN PRN #0 tab 03/10/21 [Rx Last Taken Unknown] cefdinir 300 mg PO DAILY@2200 03/10/21 [History Last Taken Unknown] hydralazine 50 mg PO BID 03/10/21 [History Last Taken Unknown] sodium bicarbonate 650 mg PO BID 03/10/21 [History Last Taken Unknown] tamsulosin 0.4 mg PO DAILY 03/10/21 [History Last Taken Unknown] Allergy/AdvReac Type Severity Reaction Status Date / Time No Known Allergies Allergy Verified 02/26/21 10:07 Family History Mother Diabetes Father CVA (cerebral vascular accident) Sister Heart disease Brother Heart disease Surgical History H/O partial resection of colon History of renal stent Hx of cystoscopy Hx of cystoscopy Hx of transurethral resection of prostate Social History household members: spouse housing: house current occupational status: retired Smoking Status: Former smoker alcohol intake: never substance use type: does not use ROS Constitutional Constitutional: Denies chills, fever(s) or malaise Eyes Eyes: Denies blurry vision or change in vision ENT HEENT: Reports none Cardiovascular Cardiovascular: Denies chest pain or palpitations Respiratory/Chest Respiratory/Chest: Denies cough or shortness of breath with exertion Gastrointestinal Gastrointestinal: Denies abdominal pain, constipation or diarrhea Musculoskeletal Musculoskeletal: Denies back pain, joint stiffness or joint swelling Integumentary Integumentary: Denies dry skin, jaundice, lesions or rash Neurologic Neurologic: Denies confusion, syncope or weakness Psychiatric Psychiatric: Reports none; Denies anxiety or depression Endocrine Endocrinology: Denies excessive sweating, fatigue or flushing Hematologic/Lymphatic Hematologic/Lymphatic: Denies anemia, easy bleeding or easy bruising Physical Exam Const alert and oriented x3 General Appearance: cooperative HEENT normocephalic, head/scalp atraumatic, EAC's normal and TM's normal bilaterally Eyes PERRL and EOMs intact bilaterally Pupil: sluggish Neck no lymphadenopathy, supple and no JVD General: trachea midline Lymph Lymphatic: no lymphadenopathy noted, lymphedema and lymphadenopathy Resp normal respiratory effort, normal air movement and clear to auscultation b ilaterally Cardio regular rate, regular rhythm and peripheral pulses 2+ throughout GI soft to palpation, non-tender and non-distended Extremity normal capillary refill and no clubbing, cyanosis or edema General Extremity: no tenderness to palpation of joints or extremities Skin no rashes or lesions noted General Skin Exam: turgor normal Lesions: no lesions Rashes: no rashes Neuro CN's II-XII intact bilaterally Speech: speech normal Motor Exam: strength 5/5 throughout; Negative for general weakness Psych thought process normal, cooperative and affect normal Appearance: appropriate Lab / Micro Data Result Diagrams: 03/12/21 05:19 03/14/21 05:31 Labs: Laboratory Results - last 24 hr 03/16/21 06:30: POC Glucose 91
--- NOTE | 2021-03-16 13:53 | NURSING ---
Dr. Patiño updated on pt's recent bone scan results. Would like appointment made with [facility].
[2021-03-16 15:46] VITALS: BP 120/78; PULSE 86; RESP 16; TEMP 36.4; O2SAT 97
[2021-03-16 17:18] VITALS: PULSE 84
[2021-03-16] MEDS: Mirtazapine 15 MG Tablet PO (22:01)
[2021-03-17 06:02] VITALS: BP 107/55; PULSE 82
[2021-03-17] MEDS: Sodium Bicarbonate 650 MG Tablet PO ×2 (06:03→17:33)
[2021-03-17] MEDS: Loperamide 2 MG Capsule PO ×2 (06:03→17:33)
[2021-03-17 06:30] LABS: Bedside Glucose 91 mg/dL (70-110)
--- NOTE | 2021-03-17 07:32 | NURSING ---
Clemente held during am med pass d/t blood sugar at 91 and unsure how much intake pt will have at breakfast.
[2021-03-17] MEDS: Glucerna Shake 120 ML LIQUID PO ×4 (08:46→20:51)
--- NOTE | 2021-03-17 09:49 | NURSING ---
Addendum entered by Cindy Lang 03/17/21 10:29: Vera, from oncology office called and will get records from [facility] when pt had chemo and radiation for rectal & prostate cancer. she will call back with date and time for appt Original Note: left message with oncology office, awaiting return call for appt date/time.
[2021-03-17 14:11] VITALS: BP 124/64; PULSE 96; RESP 16; TEMP 36.5; O2SAT 97
[2021-03-17 17:33] VITALS: BP 124/64; PULSE 96
[2021-03-17] MEDS: hydrALAZINE 50 MG Tablet PO (17:33)
[2021-03-17] MEDS: Menthol/Lanolin/Calamine/Znox 113 GM Tube 1 APPLIC TOPICAL (17:34)
[2021-03-17] MEDS: Mirtazapine 15 MG Tablet PO (20:52)
[2021-03-17 21:16] VITALS: PULSE 88; RESP 14; O2SAT 97
[2021-03-18 05:56] LABS: Absolute Lymphocyte Count 0.85 X10^3/uL (0.83-4.51); Absolute Neutrophil Count 4.6 X10^3/uL (2.0-7.7); Basophil# 0.04 X10^3/uL; Basophil% 0.6 % (0-1); Eosinophil# 0.22 X10^3/uL; Eosinophils% 3.4 % (0-5); Hematocrit 24.8 % (40-54); Hemoglobin 7.5 g/dL (13.0-16.5); Lymphocyte # 0.85 X10^3/ul (0.83-4.51); Lymphocyte % 13.2 % (19-41); Mean Corp Hgb Conc 30.2 g/dL (32-36); Mean Corpuscular Hgb 26.7 pg (27.0-32.0); Mean Corpuscular Volume 88.3 fL (80-94); Mean Platelet Vol. 8.9 fl (6.2-12.0); Monocyte% 10.8 % (0-10); NRBC Flagged by Analyzer 0 % (0-5); Neutrophil # 4.55 X10^3/uL (2.7-7.7); Neutrophil % 70.5 % (47-70); Platelet Count 278 K/mm3 (150-450); RBC Distribution Width CV 14.3 % (11.6-14.6); RBC Distribution Width SD 45.8 fl (35.1-43.9); Red Blood Count 2.81 M/mm3 (4.6-6.2); White Blood Count 6.5 K/mm3 (4.4-11.0)
[2021-03-18 06:31] LABS: Bedside Glucose 93 mg/dL (70-110)
[2021-03-18 06:32] VITALS: BP 100/55; PULSE 82
[2021-03-18] MEDS: Loperamide 2 MG Capsule PO ×2 (06:32→18:13)
[2021-03-18] MEDS: Sodium Bicarbonate 650 MG Tablet PO ×2 (06:32→18:13)
[2021-03-18 07:11] LABS: Anion Gap 8 (5-15); BUN 51 mg/dL (7-18); BUN/Creat Ratio 13.5 RATIO (10-20); Calcium,Total 8.6 mg/dL (8.5-10.1); Chloride 110 mmol/L (98-107); Creatinine, Serum 3.77 mg/dL (0.70-1.30); EST Glomerular Filtration Rate 17 mL/min (>60); Est Glom Filt Rate - Afr Amer 20 mL/min (>60); Estimated Creatinine Clearance 14.75 ml/min; Glucose 99 mg/dL (74-106); Potassium 4.1 mmol/L (3.5-5.1); Sodium Level 140 mmol/L (136-145)
[2021-03-18] MEDS: Glucerna Shake 120 ML LIQUID PO ×2 (11:09→18:13)
[2021-03-18] MEDS: Tuberculin,Purif.prot.deriv. 50 TU/ML Vial 0.1 ML ID (12:23)
--- NOTE | 2021-03-18 12:42 | PN_ITS ---
Subjective Subjective Patient was seen today for follow up on feet/ankles. He is resting comfortably in bed with no new complaints. He denies lower extremity pain. He has Tayco brace on right with athletic sneaker and athletic sneaker on left. He has left drop foot as well. His physical therapist and family are bedside. The therapist reports they have been applying an AMADA wrap to the left to help with dorsiflexion assist until the Ankle Foot Brace is approved. Objective Data Objective Data Vital Signs: Vital Signs Temp Pulse Resp BP Pulse Ox 97.7 F L 82 14 100/55 L 97 03/17/21 14:11 03/18/21 06:32 03/17/21 21:16 03/18/21 06:32 03/17/21 21:16 Oxygen Delivery Method Room Air Weight: 63.548 kg Body Mass Index (BMI) 22.4 Intake & Output: Intake and Output for Last 24 Hours 03/16/21 03/17/21 03/18/21 23:59 23:59 23:59 Intake Total 720 / 720 900 / 900 240 / 240 Output Total 1900 / 1900 1974 / 1974 1000 / 1000 Balance -1180 / -1180 -1075 / -1075 -760 / -760 Medical Nutrition Assessment Dietitian: Malnutrition Criteria Met Start: 03/11/21 16:52 Freq: Status: Active Protocol: Document 03/17/21 14:37 LUIS ALBERTO (Rec: 03/17/21 14:37 LUIS ALBERTO [id number]) Nutrition Malnutrition Evidence of Malnutrition Exists Yes Malnutrition (severe): Chronic Evidenced By Suboptimal Energy Intake ( Severe),Weight Loss (Severe) Clinical Problem Chronic Disease or Condition Related Malnutrition Etiology severe, chronic malnutrition r /t decreased energy intake Signs/Symptoms as evidenced by 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 intake meeting <50% of estimated energy needs 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, 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 Status Active Problem Recommendation Dietitian Recommendations/Changes continue regular diet and 120mL glucerna 4x/day w/ medpass Lab / Micro Data Result Diagrams: 03/18/21 05:39 03/18/21 05:39 Labs: Laboratory Results - last 24 hr 03/18/21 05:39: WBC 6.5, RBC 2.81 L, Hgb 7.5 L, Hct 24.8 L, MCV 88.3, MCH 26.7 L , MCHC 30.2 L, RDW Std Deviation 45.8 H, RDW Coeff of Darian 14.3, Plt Count 278, MPV 8.9, Immature Gran % (Auto) 1.500 H, Neut % (Auto) 70.5 H, Lymph % (Auto) 13.2 L, Bosque % (Auto) 10.8 H, Eos % (Auto) 3.4, Baso % (Auto) 0.6, Absolute Neuts (auto) 4.6, Absolute Lymphs (auto) 0.85, Nucleated RBC % 0 03/18/21 05:39: Sodium 140, Potassium 4.1, Chloride 110 H, Carbon Dioxide 22.0, Anion Gap 8, BUN 51 H, Creatinine 3.77 H, Estim Creat Clear Calc 14.75, Est GFR (MDRD) Af Amer 20 L, Est GFR (MDRD) Non-Af 17 L, BUN/Creatinine Ratio 13.5, Glucose 99, Calcium 8.6 03/18/21 06:25: POC Glucose 93 Micro: Microbiology 03/13/21 14:03 Nasal Secretion SARS-CoV-2 Antigen (Rapid) - Final Physical Exam Const alert, oriented x3 and no apparent distress Extremity Extremity Narrative: Right/left foot/ankle: There is diffuse weakness to the right foot/ankle with patient having great difficulty moving the foot/ankle. TayCo brace and shoe fit well. there is some diffuse weakness to the left foot/ankle - this is chronic. Calf is soft and supple bilateral with no calf pain bilateral. There is some chronic diffuse edema bilateral lower extremity. Palpabe dp,left. epicritic sensation intact via light touch to lower extremity left. Assessment & Plan Assessment/Plan (1) Tendinitis of ankle or foot: (2) Foot pain, right: (3) Ankle pain, right: (4) Other hereditary and idiopathic neuropathies: (5) Diabetes mellitus: (6) Walking difficulty due to ankle and foot: (7) Foot pain, left: (8) Arthritis of foot, left: PLAN: Evaluation performed and chart reviewed. He has chronic right foot/ankle pain with diffuse weakness. Reviewed right foot/ankle xrays as well as MRI results. Reviewed LEAS results; intact with normal TBI, CHLOE, and triphasic waveforms. There is DJD noted as well as torn ATFL right ankle. It is recommended to treat this nonsurgically due to patients other medical problems - surgery would be high risk. However, patient has diffuse weakness and I believe this may be due to his peripheral neuropathy. His other comorbidities and diagnoses are noted. Bilateral lower extremity EMG/NCV testing for further evaluation however this will be done outpatient. Left foot and ankle xrays reviewed without acute fractures. There appears to be midfoot arthritis and an ossified body distal to medial malleolus which do not correlate clinically at this time. In meantime patient to use Tayco AFO right foot/ankle with shoe with all weightbearing and ambulation. Tayco (external ankle brace) ordered for left foot and prior authorization is pending. This is medically necessary. Podiatry will continue to follow patient. Please do not hesitate to call if questions. Melissa Schroeder DPM, FACFAS [facility] [phone]
--- NOTE | 2021-03-18 14:24 | NURSING ---
Addendum entered by Prema Diamond 03/18/21 16:30: Vera from [facility] returned call stating they only have half the medical records and are waiting for the rest. Original Note: Contacted [facility], requesting an appt, per pt request. Notified them of Dr. Haroon rivera
[2021-03-18 15:59] VITALS: BP 108/60; PULSE 88; RESP 16; TEMP 36.9; O2SAT 99
[2021-03-18 18:14] VITALS: BP 108/60; PULSE 88
[2021-03-18] MEDS: hydrALAZINE 50 MG Tablet PO (18:14)
--- NOTE | 2021-03-18 18:58 | NURSING ---
Patient's family asked about why oncology appointment had not been made. This nurse explained the doctor needs to review medical records and history before appointment can be scheduled. Family appreciative of update.
[2021-03-18] MEDS: Mirtazapine 15 MG Tablet PO (21:08)
--- NOTE | 2021-03-18 21:12 | NURSING ---
KAILEY Malik offered for rash area to back, patient declined at this time stating No , i don;t need it, nothing is bothering me. No distress observed or reported. Presents as A&Ox3. Denies pain. Denies requests. Call light in reach.
[2021-03-18 22:43] VITALS: PULSE 100; RESP 16; O2SAT 97
[2021-03-19 06:25] LABS: Bedside Glucose 99 mg/dL (70-110)
[2021-03-19] MEDS: Loperamide 2 MG Capsule PO ×2 (06:30→18:09)
[2021-03-19] MEDS: Sodium Bicarbonate 650 MG Tablet PO ×2 (06:30→18:10)
[2021-03-19 06:31] VITALS: BP 97/45; PULSE 88
[2021-03-19] MEDS: Glucerna Shake 120 ML LIQUID PO ×4 (06:31→21:06)
[2021-03-19] MEDS: Menthol/Lanolin/Calamine/Znox 113 GM Tube 1 APPLIC TOPICAL ×2 (06:38→18:16)
--- NOTE | 2021-03-19 11:13 | CASEMGMT ---
Addendum entered by Luz Nails 03/19/21 16:37: Followed up with pt and - other dtr was present in room. Updated them insurance approved with [employer]D 03/24. Oncology is working on getting necessary information to make appt with pt. Family would like to remain in TCU to keep getting care and to see oncologist prior to DC, if possible. From therapy training, family requesting DME: BSC, w/c and hospital bed. SW to order at DC. Answered dtr's questions - reiterated information from care plan meeting. Explained to dtr and reminded , to begin calling nonskilled [facility] agencies to get care in the home multiple times a week. Dtr in agreement and will assist . SW to continue to follow. Original Note: Social Work IDT met with patient, and dtr for care plan meeting. Discussed patient's progress in PT/OT and nursing. Pt progressing but still needs assistance. Inquired about assisting at home. Dtr interjected that cannot care for pt at home by herself, she will need assistance. reluctantly agreed and specially needs help with showers. Pt does have a lift chair to assist with tx while in the living room. Inquired about finances - can afford to hire nonskilled C. Provided list and encouraged to start contacting today as [employer] insurance has not provided outcome from update 03/18. SW to order skilled HHC PT/OT/SN/SAMSON/SW. Discussed cancer prognosis and treatment goals. Pt and agree they would like to meet with oncologist to review treatment options and prognosis before deciding on pursuing treatment. Nursing aware. Revisited Palliative services and explained at length benefits and services of program. Pt an express they had a misunderstanding of the program and would be interested in meeting with liaison to potentially agree to services. Updated [facility] and they will schedule appt with /pt/dtr. will be particiapting in training with therapy today to determine what she can/cannot do for pt at home. SW to continue to follow for support and DC planning. Luz Nails, DOOR PULLER CEO & BOARD DIRECTOR
[2021-03-19] MEDS: oxyCODONE 5 MG Tablet PO ×3 (11:58→22:45)
--- NOTE | 2021-03-19 12:02 | NURSING ---
Pain meds offered for pain to back. When pain medication brought to resident he acts irriated to take it and states everyone just wants to come all at once and reports to its stupid that everyone comes at once. Will continue to monitor pain.
[2021-03-19 13:39] VITALS: BP 107/54; PULSE 85; RESP 20; TEMP 36.7; O2SAT 97
--- NOTE | 2021-03-19 15:26 | NURSING ---
[place] [facility] calls and reports they are working on residents oncology referral but need some more information collected such as where his original prostate pathology report. recalls it being through Dr Melo and surgery done at [facility]. THis information was relayed to [place] [facility].
[2021-03-19 21:00] VITALS: PULSE 85; RESP 14; O2SAT 99
[2021-03-19] MEDS: Mirtazapine 15 MG Tablet PO (21:06)
[2021-03-19] MEDS: Hydrocortisone 2.5% Crm 1 APPLIC TOPICAL (21:08)
[2021-03-20] MEDS: oxyCODONE 5 MG Tablet PO ×2 (02:59→10:33)
[2021-03-20] MEDS: Hydrocortisone 2.5% Crm 1 APPLIC TOPICAL (03:00)
[2021-03-20 05:24] VITALS: BP 93/40; PULSE 76
[2021-03-20] MEDS: Glucerna Shake 120 ML LIQUID PO ×2 (05:25→16:44)
[2021-03-20] MEDS: Loperamide 2 MG Capsule PO ×2 (05:25→16:43)
[2021-03-20] MEDS: Menthol/Lanolin/Calamine/Znox 113 GM Tube 1 APPLIC TOPICAL ×2 (05:25→16:46)
[2021-03-20] MEDS: Sodium Bicarbonate 650 MG Tablet PO ×2 (05:25→16:43)
[2021-03-20 05:49] LABS: Hematocrit 24.3 % (40-54); Hemoglobin 7.2 g/dL (13.0-16.5)
[2021-03-20 06:50] LABS: Bedside Glucose 92 mg/dL (70-110)
--- NOTE | 2021-03-20 09:42 | MDS.RN ---
Information for the mds was obtained from review of the clinical record, interview of resident, staff, and direct observation of resident's care.
[2021-03-20] MEDS: hydrOXYzine 10 MG Tablet PO (10:31)
[2021-03-20 14:51] VITALS: BP 103/56; PULSE 88; RESP 16; TEMP 36.6; O2SAT 97
[2021-03-20] MEDS: Mirtazapine 15 MG Tablet PO (20:56)
--- NOTE | 2021-03-21 00:26 | NURSING ---
indwelling akers catheter draining clear yellow urine. Pt has no complaints.
[2021-03-21] MEDS: Glucerna Shake 120 ML LIQUID PO ×3 (06:15→21:07)
[2021-03-21] MEDS: Menthol/Lanolin/Calamine/Znox 113 GM Tube 1 APPLIC TOPICAL ×2 (06:16→18:34)
[2021-03-21] MEDS: Loperamide 2 MG Capsule PO ×2 (06:16→18:35)
[2021-03-21] MEDS: Sodium Bicarbonate 650 MG Tablet PO ×2 (06:16→18:35)
[2021-03-21 06:17] VITALS: BP 105/53; PULSE 83
[2021-03-21 06:40] LABS: Bedside Glucose 96 mg/dL (70-110)
--- NOTE | 2021-03-21 11:24 | NURSING ---
Attempted to call Dr Hill's office to see what we should do about changing residents akers catheter. Placed 02/17/[address] Tellez office is usually who changes his Akers catheter. Will attempt to call Dr Hill;s office on Wednesday AM in regards to this.
[2021-03-21] MEDS: oxyCODONE 5 MG Tablet 2.5 MG PO (14:23)
--- NOTE | 2021-03-21 14:25 | NURSING ---
Reports better pain relief but feels too sleepy and out of it. Is hesitant to take pain medication and does not feel tylenol works. Dr Patiño aware and decreases oxyir dose and adds ultram prn for pain relief as well.
[2021-03-21 15:48] VITALS: BP 118/54; PULSE 81; RESP 24; TEMP 37.2; O2SAT 97
[2021-03-21 18:35] VITALS: PULSE 81
[2021-03-21] MEDS: hydrALAZINE 50 MG Tablet PO (18:35)
[2021-03-21] MEDS: Mirtazapine 15 MG Tablet PO (21:07)
[2021-03-21] MEDS: Hydrocortisone 2.5% Crm 1 APPLIC TOPICAL (21:11)
[2021-03-21 21:20] VITALS: PULSE 97; RESP 14; O2SAT 99
[2021-03-22] MEDS: hydrOXYzine 10 MG Tablet PO (02:14)
[2021-03-22 06:00] VITALS: BP 99/41; PULSE 79
[2021-03-22] MEDS: Menthol/Lanolin/Calamine/Znox 113 GM Tube 1 APPLIC TOPICAL ×2 (06:00→18:00)
[2021-03-22] MEDS: Sodium Bicarbonate 650 MG Tablet PO ×2 (06:00→18:00)
[2021-03-22] MEDS: Glucerna Shake 120 ML LIQUID PO ×4 (12:00→22:00)
[2021-03-22] MEDS: oxyCODONE 5 MG Tablet 2.5 MG PO (17:36)
[2021-03-22 18:00] VITALS: BP 118/54; PULSE 83
[2021-03-22] MEDS: hydrALAZINE 50 MG Tablet PO (18:00)
[2021-03-22] MEDS: Loperamide 2 MG Capsule PO ×2 (18:00)
[2021-03-22 19:24] LABS: Bedside Glucose 92 mg/dL (70-110)
[2021-03-22 21:46] LABS: Hematocrit 24.8 % (40-54)
[2021-03-22 21:47] LABS: Hemoglobin 7.6 g/dL (13.0-16.5)
[2021-03-22] MEDS: Mirtazapine 15 MG Tablet PO (22:00)
[2021-03-23 06:11] LABS: Bedside Glucose 88 mg/dL (70-110)
[2021-03-23 06:14] VITALS: BP 92/51; PULSE 82
[2021-03-23] MEDS: Loperamide 2 MG Capsule PO ×2 (06:15→17:43)
[2021-03-23] MEDS: Menthol/Lanolin/Calamine/Znox 113 GM Tube 1 APPLIC TOPICAL ×2 (06:15→17:42)
[2021-03-23] MEDS: Sodium Bicarbonate 650 MG Tablet PO ×2 (06:15→17:43)
[2021-03-23] MEDS: Glucerna Shake 120 ML LIQUID PO ×3 (06:16→17:42)
[2021-03-23 13:50] VITALS: BP 96/50; PULSE 87; RESP 16; TEMP 36.6; O2SAT 94
[2021-03-23 17:43] VITALS: BP 96/50; PULSE 87
--- NOTE | 2021-03-23 18:51 | PCA ---
FOUNTAIN PEN TURNER offered to help patient to wash up for the night and assist with ADLs. Patient said not tonight I will wait until morning Patient is has ADLs in the morning with therapy. FOUNTAIN PEN TURNER assisted patient with incontinence of bowels and provided cath care. call light left within reach.
[2021-03-23] MEDS: Mirtazapine 15 MG Tablet PO (19:51)
[2021-03-24 06:31] LABS: Bedside Glucose 95 mg/dL (70-110)
[2021-03-24 06:34] VITALS: BP 108/62; PULSE 71
[2021-03-24] MEDS: hydrALAZINE 50 MG Tablet PO (06:34)
[2021-03-24] MEDS: Glucerna Shake 120 ML LIQUID PO ×3 (06:34→18:32)
[2021-03-24] MEDS: Loperamide 2 MG Capsule PO ×2 (06:35→18:32)
[2021-03-24] MEDS: Sodium Bicarbonate 650 MG Tablet PO ×2 (06:35→18:32)
[2021-03-24] MEDS: Menthol/Lanolin/Calamine/Znox 113 GM Tube 1 APPLIC TOPICAL ×2 (06:35→18:33)
--- NOTE | 2021-03-24 09:24 | NURSING ---
Dr Hill office notified, spoke with Rasheeda, she will update regarding pt needing akers changed, its been in for 30 days. awaiting return call.
[2021-03-24] MEDS: Hydrocortisone 2.5% Crm 1 APPLIC TOPICAL (09:54)
[2021-03-24] MEDS: oxyCODONE 5 MG Tablet 2.5 MG PO (09:55)
--- NOTE | 2021-03-24 11:48 | NURSING ---
Patient's requesting the use of Ultram 50mg for pain due to patient being too sedated with Oxy 2.5mg. Charge nurse made aware.
--- NOTE | 2021-03-24 14:55 | NURSING ---
pt off unit to Dr Jones's office.
[2021-03-24 15:58] VITALS: BP 104/56; PULSE 81; RESP 14; TEMP 36.8; O2SAT 93
[2021-03-24 16:00] VITALS: PULSE 91; RESP 16; O2SAT 96
[2021-03-24 18:32] VITALS: BP 104/56; PULSE 91
[2021-03-24] MEDS: traMADol 50 MG Tablet PO (21:21)
[2021-03-24] MEDS: Mirtazapine 15 MG Tablet PO (21:22)
[2021-03-25] MEDS: Menthol/Lanolin/Calamine/Znox 113 GM Tube 1 APPLIC TOPICAL ×2 (05:35→17:08)
[2021-03-25] MEDS: Glucerna Shake 120 ML LIQUID PO ×4 (05:35→20:54)
[2021-03-25 05:36] VITALS: BP 115/67; PULSE 90
[2021-03-25] MEDS: hydrALAZINE 50 MG Tablet PO ×2 (05:36→17:08)
[2021-03-25] MEDS: Sodium Bicarbonate 650 MG Tablet PO ×2 (05:36→17:08)
[2021-03-25] MEDS: Loperamide 2 MG Capsule PO ×2 (05:36→17:08)
[2021-03-25 05:54] LABS: Absolute Lymphocyte Count 0.87 X10^3/uL (0.83-4.51); Absolute Neutrophil Count 4.6 X10^3/uL (2.0-7.7); Basophil# 0.03 X10^3/uL; Basophil% 0.5 % (0-1); Eosinophil# 0.17 X10^3/uL; Eosinophils% 2.7 % (0-5); Hematocrit 24.8 % (40-54); Hemoglobin 7.8 g/dL (13.0-16.5); Lymphocyte # 0.87 X10^3/ul (0.83-4.51); Lymphocyte % 13.6 % (19-41); Mean Corp Hgb Conc 31.5 g/dL (32-36); Mean Corpuscular Hgb 27.6 pg (27.0-32.0); Mean Corpuscular Volume 87.6 fL (80-94); Mean Platelet Vol. 9.1 fl (6.2-12.0); Monocyte# 0.63 X10^3/uL; Monocyte% 9.9 % (0-10); NRBC Flagged by Analyzer 0 % (0-5); Neutrophil # 4.61 X10^3/uL (2.7-7.7); Platelet Count 216 K/mm3 (150-450); RBC Distribution Width CV 14.6 % (11.6-14.6); RBC Distribution Width SD 46.8 fl (35.1-43.9); Red Blood Count 2.83 M/mm3 (4.6-6.2); White Blood Count 6.4 K/mm3 (4.4-11.0)
[2021-03-25 06:38] LABS: Anion Gap 7 (5-15); BUN 56 mg/dL (7-18); Calcium,Total 8.4 mg/dL (8.5-10.1); Chloride 109 mmol/L (98-107); Creatinine, Serum 3.29 mg/dL (0.70-1.30); EST Glomerular Filtration Rate 19 mL/min (>60); Est Glom Filt Rate - Afr Amer 23 mL/min (>60); Glucose 99 mg/dL (74-106); Sodium Level 139 mmol/L (136-145)
[2021-03-25 06:41] LABS: Bedside Glucose 99 mg/dL (70-110)
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
[2021-03-25] MEDS: Hydrocortisone 2.5% Crm 1 APPLIC TOPICAL (11:00)
[2021-03-25 15:04] VITALS: BP 123/61; PULSE 94; RESP 16; TEMP 36.7; O2SAT 97
--- NOTE | 2021-03-25 16:27 | NURSING ---
Resident and spouse, Terri, notified of staff member testing positive for COVID.
[2021-03-25 17:08] VITALS: PULSE 94
[2021-03-25] MEDS: Mirtazapine 15 MG Tablet PO (20:54)
[2021-03-26 06:40] LABS: Bedside Glucose 83 mg/dL (70-110)
[2021-03-26 06:43] VITALS: BP 94/52; PULSE 79
[2021-03-26] MEDS: Glucerna Shake 120 ML LIQUID PO ×4 (06:44→21:44)
[2021-03-26] MEDS: Loperamide 2 MG Capsule PO ×2 (06:44→17:45)
[2021-03-26] MEDS: Sodium Bicarbonate 650 MG Tablet PO ×2 (06:44→17:44)
[2021-03-26] MEDS: Menthol/Lanolin/Calamine/Znox 113 GM Tube 1 APPLIC TOPICAL ×2 (06:50→17:45)
--- NOTE | 2021-03-26 07:21 | NURSING ---
Lantus not given at 0600 due to blood glucose 83 and declined snack. Written communication left for regarding trending blood sugars and request for parameter for hold.
--- NOTE | 2021-03-26 09:05 | CASEMGMT ---
Addendum entered by Luz Nails 03/26/21 13:16: Insurance did issue LCD 03/28, DC 03/29. Updated pt/family. Original Note: Social Work Spoke with and updated this worker still has not heard back from insurance, but can plan for DC 03/29. /pt agreeable. [facility] 03/31 and [employer] to deliver DME to pt room prior to DC. to transport. Plan: DC home with 03/29, [facility] PT/OT/SN/SAMSON/SW, [facility]SC, w/c, hospital bed. Updated Palliative of DC date. Luz Nails, SUPERVISOR MENDING SLAGGER
--- NOTE | 2021-03-26 10:29 | NURSING ---
Spoke with Dr. Hill's office, pt is to f/u on 03/31/21 at 13:30. Appt added to discharge plan information.
[2021-03-26 13:34] VITALS: BP 112/56; PULSE 86; RESP 16; TEMP 36.7; O2SAT 98
[2021-03-26 17:45] VITALS: BP 127/56; PULSE 92
[2021-03-26] MEDS: hydrALAZINE 50 MG Tablet PO (17:45)
[2021-03-26] MEDS: traMADol 50 MG Tablet PO (17:48)
--- NOTE | 2021-03-26 18:28 | PCM.PROGNOTE ---
Subjective Subjective This is an 80-year-old male with arthritis of the left foot, right ankle pain, and bilateral foot pain. He is seen resting bedside comfortably with no complaints. Objective Data Objective Data Vital Signs: Vital Signs Temp Pulse Resp BP Pulse Ox 98.1 F 92 16 127/56 H 98 03/26/21 13:34 03/26/21 17:45 03/26/21 13:34 03/26/21 17:45 03/26/21 13:34 Oxygen Delivery Method Room Air Weight: 63.14 kg Body Mass Index (BMI) 22.4 Intake & Output: Intake and Output for Last 24 Hours 03/24/21 03/25/21 03/26/21 23:59 23:59 23:59 Intake Total 960 / 960 720 / 720 360 / 360 Output Total 1725 / 1725 1450 / 1450 1750 / 1750 Balance -765 / -765 -730 / -730 -1390 / -1390 Medical Nutrition Assessment Dietitian: Malnutrition Criteria Met Start: 03/11/21 16:52 Freq: Status: Active Protocol: Document 03/17/21 14:37 SLA (Rec: 03/17/21 14:37 SLA [id number]) Nutrition Malnutrition Evidence of Malnutrition Exists Yes Malnutrition (severe): Chronic Evidenced By Suboptimal Energy Intake ( Severe),Weight Loss (Severe) Clinical Problem Chronic Disease or Condition Related Malnutrition Etiology severe, chronic malnutrition r /t decreased energy intake Signs/Symptoms as evidenced by 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 intake meeting <50% of estimated energy needs 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, 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 wt loss of 12.9#/8% 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 Status Active Problem Recommendation Dietitian Recommendations/Changes continue regular diet and 120mL glucerna 4x/day w/ medpass Lab / Micro Data Result Diagrams: 03/25/21 05:32 03/25/21 05:32 Labs: Laboratory Results - last 24 hr 03/26/21 06:33: POC Glucose 83 Micro: Microbiology 03/20/21 14:30 Nasal Secretion SARS-CoV-2 Antigen (Rapid) - Final 03/13/21 14:03 Nasal Secretion SARS-CoV-2 Antigen (Rapid) - Final Physical Exam Const alert, oriented x3 and no apparent distress Extremity Extremity Narrative: Right/left foot/ankle: There is diffuse weakness to the right foot/ankle with patient having great difficulty moving the foot/ankle. TayCo brace and shoe fit well. there is some diffuse weakness to the left foot/ankle - this is chronic. Calf is soft and supple bilateral with no calf pain bilateral. There is some chronic diffuse edema bilateral lower extremity. Palpabe dp,left. epicritic sensation intact via light touch to lower extremity left. Assessment & Plan Assessment/Plan (1) Tendinitis of ankle or foot: (2) Foot pain, right: (3) Ankle pain, right: (4) Other hereditary and idiopathic neuropathies: (5) Diabetes mellitus: (6) Walking difficulty due to ankle and foot: (7) Foot pain, left: (8) Arthritis of foot, left: PLAN: Evaluation performed and chart reviewed. He has chronic right foot/ankle pain with diffuse weakness. Reviewed right foot/ankle xrays as well as MRI results. Reviewed LEAS results; intact with normal TBI, CHLOE, and triphasic waveforms. There is DJD noted as well as torn ATFL right ankle. It is recommended to treat this nonsurgically due to patients other medical problems - surgery would be high risk. However, patient has diffuse weakness and I believe this may be due to his peripheral neuropathy. His other comorbidities and diagnoses are noted. Bilateral lower extremity EMG/NCV testing for further evaluation however this will be done outpatient. Left foot and ankle xrays reviewed without acute fractures. There appears to be midfoot arthritis and an ossified body distal to medial malleolus which do not correlate clinically at this time. In meantime patient to use Tayco AFO right foot/ankle with shoe with all weightbearing and ambulation. Tayco (external ankle brace) ordered for left foot. Patient was informed that insurance will not cover for a left Tayco AFO and that he would have to pay [id number] for this brace. This is medically necessary. Patient states that if he has to pay [id number] for the brace he will certainly do that because he feels it will help him. Podiatry will continue to follow patient. Please do not hesitate to call if questions. Jr. Tesfaye CampP.M. [facility] [phone]
--- NOTE | 2021-03-26 20:26 | DS.PCM_ITS ---
Providers Date of Admission: 03/10/21 Primary Care Physician: Dr. Srinivas Thayer MD Consultations 03/10/21 20:25 Consult: Nephrology Routine Consulting Provider: Francisca Wheat Reason for Consult: Acute kidney injury/CKD stage 3b EMERGENT Consult: Yes MD Notified: Yes Date Notified: 03/10/21 Time Notified: 20:25 Method of Notification: Answering Service Consult: Podiatry Routine Consulting Provider: Bassam Ribera Reason for Consult: Right ankle/right foot pain. EMERGENT Consult: Yes MD Notified: Yes Date Notified: 03/10/21 Time Notified: 20:26 Method of Notification: Answering Service Consult: Urology Routine Consulting Provider: Tal Hill Reason for Consult: Left ureteral obstruction s/p stent. EMERGENT Consult: Yes Notified: Yes Date Notified: 03/10/21 Time Notified: 20:26 Method of Notification: Answering Service 03/11/21 13:29 Consult: Hospice / Palliative Care Routine Consulting Provider: [facility] Reason for Consult: Palliative - cancer, renal disease, rehospitalizations EMERGENT Consult: No MD Notified: Yes Date Notified: 03/11/21 Time Notified: 13:29 Method of Notification: Provider Initiated Reason For Visit: DEISI ON CKD Diagnosis Discharge Diagnosis (1) Tendinitis of ankle or foot: Status: Acute Code(s): M77.50 - Other enthesopathy of unspecified foot and ankle (2) Foot pain, right: Status: Acute Code(s): M79.671 - Pain in right foot (3) Ankle pain, right: Status: Acute Code(s): M25.571 - Pain in right ankle and joints of right foot (4) Other hereditary and idiopathic neuropathies: Status: Acute Code(s): G60.8 - Other hereditary and idiopathic neuropathies (5) Diabetes mellitus: Status: Acute Code(s): E11.9 - Type 2 diabetes mellitus without complications (6) Walking difficulty due to ankle and foot: Status: Acute Code(s): R26.2 - Difficulty in walking, not elsewhere classified (7) Foot pain, left: Status: Acute Code(s): M79.672 - Pain in left foot (8) Arthritis of foot, left: Status: Acute Code(s): M19.072 - Primary osteoarthritis, left ankle and foot Medications at Discharge Home Medications cholecalciferol (vitamin D3) 1,000 unit PO DAILY 12/08/19 loperamide 2 mg PO BID 12/08/19 acetaminophen [Tylenol Extra Strength] 1,000 mg PO BID 09/18/20 Lantus Solostar U-100 Insulin 10 unit SUBCUT DAILY 12/25/20 mirtazapine 15 mg PO QHS 03/04/21 sulfamethoxazole-trimethoprim 1 tab PO BID 03/04/21 acetaminophen [Tylenol] 650 mg PO Q4H PRN PRN #0 tab 03/10/21 cefdinir 300 mg PO DAILY@2200 03/10/21 hydralazine 50 mg PO BID 03/10/21 sodium bicarbonate 650 mg PO BID 03/10/21 tamsulosin 0.4 mg PO DAILY 03/10/21 acetaminophen 1,000 mg PO Q6H PRN PRN #0 tab 03/26/21 oxycodone 2.5 mg PO Q4H PRN PRN 7 Days #21 tab 03/26/21 sodium bicarbonate 650 mg PO BID 30 Days #60 tab 03/26/21 tramadol 50 mg PO Q6H PRN PRN 7 Days #28 tab 03/26/21 Hospital Course Operations - (Left ureteral stent.) Procedures None Summary of Care Provided Minutes Spent on Discharge: 35 Hospital Course: 80 year old male with below past medical history hospitalized for acute kidney injury secondary to left ureteral obstruction requiring stent, complicated by left pyelonephritis, anemia requiring transfusion, hyperkalemia, metabolic acidosis, admitted to TCU with debility, here for rehabilitation, strengthening, prior to discharge home with . X-ray showed destructive L5/sacral lesions. 03/14/2021 Bone scan showed uptake in lumbar, sacral, iliac bones. Dr. Jones recommended PSA, CEA, medical records from [facility]. Figure out primary source of bone metastasis, rectal or prostate cancer, resident has had both. Discharge home with 03/29/2021, [facility] PT/OT/SN/SAMSON/SW, Beside Commode, Wheelchair, Hospital bed, palliative updated of discharge date. Physical Exam Const alert and oriented x3 General Appearance: cooperative HEENT normocephalic Eyes PERRL and EOMs intact bilaterally Neck supple, no JVD and no carotid bruits Resp normal respiratory effort, normal air movement and clear to auscultation bilaterally Cardio regular rate and regular rhythm GI normal to inspection, nondistended, normoactive bowel sounds, non-tender and non-distended Extremity normal capillary refill General Extremity: Negative for edema Skin no rashes or lesions noted General Skin Exam: no breakdown Psych affect normal Appearance: appropriate Medical Records Data Medical Nutrition Assessment Dietitian: Malnutrition Criteria Met Start: 03/11/21 16:52 Freq: Status: Active Protocol: Document 03/17/21 14:37 LUIS ALBERTO (Rec: 03/17/21 14:37 [facility] [id number]) Nutrition Malnutrition Evidence of Malnutrition Exists Yes Malnutrition (severe): Chronic Evidenced By Suboptimal Energy Intake ( Severe),Weight Loss (Severe) Clinical Problem Chronic Disease or Condition Related Malnutrition Etiology severe, chronic malnutrition r /t decreased energy intake Signs/Symptoms as evidenced by 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 intake meeting <50% of estimated energy needs 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, 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 Problem Recommendation Dietitian Recommendations/Changes continue regular diet and 120mL glucerna 4x/day w/ medpass Weight / BMI Weight Weight: 63.14 kg Body Mass Index (BMI) 22.4 ABG / Lab / Microbiology Data Result Diagrams: 03/25/21 05:32 03/25/21 05:32 Laboratory: Laboratory Results - last 24 hr 03/26/21 06:33: POC Glucose 83 Microbiology: Microbiology 03/20/21 14:30 Nasal Secretion SARS-CoV-2 Antigen (Rapid) - Final 03/13/21 14:03 Nasal Secretion SARS-CoV-2 Antigen (Rapid) - Final D/C Instructions Discharge Diet: No restrictions Discharge Activity: Return to Normal Activity, May Shower and Use Walker Weight Bearing Status: Weight bearing as tolerated Call your doctor if you observe: Fever of 101 or Higher, Inability to urinate, Inability to have a bowel movement, Shortness of breath, Dizziness, Fainting spells, Swelling in the ankles, Chest pain and Uncontrolled pain Additional Instructions: Discharge home with 03/29/2021, [facility] PT/OT/SN/SAMSON/SW, Beside Commode, Wheelchair, Hospital bed, palliative updated of discharge date. Please Follow Up With: Tal Hill MD When: As scheduled. Meaningful Use Info Meaningful Use Diagnoses (Choose all that apply): None applicable Discharge Plan Admission Admit Date/Time: 03/10/21 17:01 Primary Reason for Your Visit: Debility. Attending Provider: Taras Patiño Chi Primary Care Provider: Srinivas Thayer Consulting Providers: Francisca Wheat ; Bassam Ribera ; Tal Hill ; Reina Lea ; Kalpesh Crowe ; Talia Jha ; Camilla Birmingham ; Starla Enamorado ; Lana Mullins SYNTHETIC FILAMENT EXTRUDER Instructions Additional Instructions / Restrictions: ambulation with bilateral ankle foot external braces with assistive device as tolerated obtain EMG and nerve conduction test in the outpatient setting Discharge home with 03/29/2021, [facility] PT/OT/SN/SAMSON/SW, Beside Commode, Wheelchair, Hospital bed, palliative updated of discharge date. Discharge Orders/Prescriptions Prescriptions: New tramadol 50 mg Tablet 50 mg PO Q6H PRN PRN (Reason: Pain Score 4-5) 7 Days Qty: 28 RF: 0 acetaminophen 500 mg Tablet 1,000 mg PO Q6H PRN PRN (Reason: Pain Score 1-3) Qty: 0 RF: 0 sodium bicarbonate 650 mg Tablet 650 mg PO BID 30 Days Qty: 60 RF: 0 oxycodone 5 mg Tablet 2.5 mg PO Q4H PRN PRN (Reason: Pain Score 6-10) 7 Days Qty: 21 RF: 0 Continued loperamide 2 MG capsule 2 mg PO BID RF: 0 mirtazapine 15 mg tablet 15 mg PO QHS RF: 0 hydralazine 50 MG tablet 50 mg PO BID RF: 0 No Action cholecalciferol (vitamin D3) 1,000 UNIT tablet 1,000 unit PO DAILY RF: 0 acetaminophen [Tylenol Extra Strength] 500 mg Tablet 1,000 mg PO BID RF: 0 Lantus Solostar U-100 Insulin 100 unit/mL (3 mL) Insulin Pen 10 unit SUBCUT DAILY RF: 0 sulfamethoxazole-trimethoprim 800-160 mg tablet 1 tab PO BID RF: 0 acetaminophen [Tylenol] 325 mg Tablet 650 mg PO Q4H PRN PRN (Reason: Fever, pain 1-12/01) Qty: 0 RF: 0 tamsulosin 0.4 MG capsule 0.4 mg PO DAILY RF: 0 sodium bicarbonate 650 mg tablet 650 mg PO BID RF: 0 cefdinir 300 mg capsule 300 mg PO DAILY@2200 RF: 0 Referrals / Follow Up: Tal Hill MD [STAFF PHYSICIAN] - 04/07/21 1:45 pm Bassam Ribera DPM [STAFF PHYSICIAN] - Within 1 Month Srinivas Thayer MD [Primary Care Provider] - Disposition Disposition (needs filled in before D/C Order can be placed): Home Health Service
[2021-03-26] MEDS: Hydrocortisone 2.5% Crm 1 APPLIC TOPICAL (21:38)
[2021-03-26] MEDS: Mirtazapine 15 MG Tablet PO (21:44)
[2021-03-26 22:00] VITALS: PULSE 87; RESP 14; O2SAT 98
[2021-03-26] MEDS: hydrOXYzine 10 MG Tablet PO (22:26)
[2021-03-27] MEDS: Sodium Bicarbonate 650 MG Tablet PO ×2 (05:38→17:45)
[2021-03-27 05:39] VITALS: BP 99/52; PULSE 78
[2021-03-27] MEDS: Menthol/Lanolin/Calamine/Znox 113 GM Tube 1 APPLIC TOPICAL ×2 (05:39→17:46)
[2021-03-27] MEDS: Glucerna Shake 120 ML LIQUID PO ×2 (05:39→17:45)
[2021-03-27] MEDS: Loperamide 2 MG Capsule PO ×2 (05:39→17:45)
[2021-03-27] MEDS: Hydrocortisone 2.5% Crm 1 APPLIC TOPICAL (05:44)
[2021-03-27 06:15] LABS: Bedside Glucose 90 mg/dL (70-110)
--- NOTE | 2021-03-27 13:39 | NURSING ---
Patient and next of kin, frederic called and notified that a patient on the unit had tested positive for covid.
[2021-03-27 16:00] VITALS: BP 114/55; PULSE 90; RESP 16; TEMP 37.6; O2SAT 96
[2021-03-27 17:47] VITALS: BP 129/60; PULSE 88
[2021-03-27] MEDS: hydrALAZINE 50 MG Tablet PO (17:47)
[2021-03-27] MEDS: traMADol 50 MG Tablet PO (18:02)
[2021-03-27] MEDS: Mirtazapine 15 MG Tablet PO (21:37)
[2021-03-27 22:49] VITALS: PULSE 64; RESP 16; O2SAT 96
[2021-03-28] MEDS: Glucerna Shake 120 ML LIQUID PO ×3 (06:15→21:48)
[2021-03-28] MEDS: Loperamide 2 MG Capsule PO ×2 (06:15→17:36)
[2021-03-28] MEDS: Sodium Bicarbonate 650 MG Tablet PO ×2 (06:15→17:36)
[2021-03-28 06:19] VITALS: BP 81/38; PULSE 72
[2021-03-28 06:31] LABS: Bedside Glucose 113 mg/dL (70-110)
[2021-03-28 07:37] VITALS: BP 106/54; PULSE 89
[2021-03-28 10:07] VITALS: BP 109/58; PULSE 92; RESP 16; TEMP 37; O2SAT 97
--- NOTE | 2021-03-28 11:56 | MDS.RN ---
BIMS and PHQ-9 completed by rn social services on this date.
--- NOTE | 2021-03-28 14:30 | MDS.RN ---
Pain interview completed for AYSE 03/29/21
[2021-03-28] MEDS: Menthol/Lanolin/Calamine/Znox 113 GM Tube 1 APPLIC TOPICAL (17:36)
[2021-03-28] MEDS: Mirtazapine 15 MG Tablet PO (21:48)
[2021-03-29] MEDS: Sodium Bicarbonate 650 MG Tablet PO (05:15)
[2021-03-29] MEDS: Glucerna Shake 120 ML LIQUID PO (05:15)
[2021-03-29] MEDS: Loperamide 2 MG Capsule PO ×2 (05:15)
[2021-03-29] MEDS: Menthol/Lanolin/Calamine/Znox 113 GM Tube 1 APPLIC TOPICAL (05:16)
[2021-03-29 06:25] LABS: Bedside Glucose 110 mg/dL (70-110)
[2021-03-29 10:20] VITALS: BP 124/67; PULSE 94; RESP 18; TEMP 37.1; O2SAT 98
== END 2021-03-29 10:30 | disposition home health service (06) | DRG 694 ==
PROVIDERS: Nurse Practitioner Adult Health; Podiatrist; Admitting Provider Family Medicine Geriatric Medicine; PCP Family Medicine; Visit Provider Family Medicine Geriatric Medicine
DX: N11.1 Chronic obstructive pyelonephritis (principal); N17.9 Acute kidney failure, unspecified; C79.51 Secondary malignant neoplasm of bone; N12 Tubulo-interstitial nephritis, not specified as acute or chronic; C20 Malignant neoplasm of rectum; D63.1 Anemia in chronic kidney disease; C61 Malignant neoplasm of prostate; E11.22 Type 2 diabetes mellitus with diabetic chronic kidney disease; Z79.4 Long term (current) use of insulin; N18.32 Chronic kidney disease, stage 3b; B96.1 Klebsiella pneumoniae [K. pneumoniae] as the cause of diseases classified elsewhere; E55.9 Vitamin D deficiency, unspecified; E87.5 Hyperkalemia; K52.9 Noninfective gastroenteritis and colitis, unspecified; I12.9 Hypertensive chronic kidney disease with stage 1 through stage 4 chronic kidney disease, or unspecified chronic kidney disease; N40.0 Benign prostatic hyperplasia without lower urinary tract symptoms; M77.8 Other enthesopathies, not elsewhere classified; G60.9 Hereditary and idiopathic neuropathy, unspecified; Z87.891 Personal history of nicotine dependence; Z79.899 Other long term (current) drug therapy
CPT/HCPCS: 36415; 73610; 73630; 74018; 80048; 82306; 82962; 85014; 85018; 85025; 87426; 97110; 97116; 97162; 97166; 97530; 97535; 97802

== ENCOUNTER 2021-03-12 10:29 | Outpatient (CLI) | payer MEDICARE, SELFPAY ==
--- NOTE | 2021-03-12 10:31 | ART_ITS ---
Reason For Study: Ankle Pain Procedure A bilateral lower extremity continuous wave Doppler with analog waveform analysis,segmental pressures,and ankle brachial indexes without exercise. Left Segmental Pressures Left brachial= 118mmHg. Left posterior tibial artery = 150mmHg. Left dorsalis pedis artery = 143mmHg. Left digit = 95 mmHg. Right Segmental Pressures Right brachial= 114mmHg. Right posterior tibial artery = 155mmHg. Right dorsalis pedis artery = 158mmHg. Right digit = 123 mmHg. Indices The right ankle brachial index by the posterior tibial artery is 1.31. The right ankle brachial index by the dorsalis pedis is 1.34. The right digital-brachial index is 1.04. The left ankle brachial index by the posterior tibial artery is 1.27. The left ankle brachial index by the dorsalis pedis is 1.21. The left digital-brachial index is 0.81. VL/Lower Ext Art Exam w/o Exercis Interpretation Summary Triphasic Doppler waveforms are noted at ankle level bilaterally. Pulse-volume recordings appear satisfactory at all levels bilaterally. Resting ankle-brachial indices are norm al bilaterally. Digital-brachial indices are normal bilaterally. There is no evidence of significant arterial occlusive disease in the lower ext remities bilaterally. Ordering Physician: Taras Patiño Referring Physician: Bassam Ribera Performed By: Stephanie Rendon RDCS/RVT
--- NOTE | 2021-03-12 12:54 | MRI_ITS ---
STUDY: MRI RIGHT ANKLE WITHOUT CONTRAST REASON FOR EXAM: Male, 80 years old. RT ANKLE PAIN TECHNIQUE: Standardized fat and water weighted pulse sequences were obtained in all 3 orthogonal planes. COMPARISON: Right ankle x-ray dated March 11, 2021 FINDINGS: Mild subcutaneous edema is present around the ankle. Moderate subcutaneous edema is seen over the dorsum of the foot. No marrow edema or osteochondral defect is present. Small ankle joint effusion noted. Mild atrophy and diffusely increased bright T2 signal is seen throughout the muscles consistent with chronic denervation neuropathy. Normal posterior tibialis tendon. Normal flexor digitorum longus tendon. Normal flexor hallucis longus tendon. Normal peroneus longus and brevis tendons. Normal tibialis anterior tendon. Normal extensor hallucis longus tendon. Normal extensor digitorum longus tendons. Normal Achilles tendon and teno-osseous insertion. Normal plantar fascia. Normal plantar calcaneal tubercles. Normal distal tibiofibular syndesmotic ligamentous complex. There is a complete rupture of the anterior talofibular ligament (ATFL). Normal subtalar ligaments and sinus tarsi. Normal deltoid ligamentous complexes. Normal plantar calcaneonavicular (spring) ligament. The tibiotalar articulation is mildly to moderately narrowed. Normal talar dome. Normal subtalar articulations. Normal talonavicular articulation. Normal calcaneocuboid articulation. Normal navicular-cuneiform articulations. MRI/Lower Ext Joint Only (Routine) IMPRESSION: 1. 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 Small ankle joint effusion 3. Mild to moderate narrowing of the tibiotalar articulation 4. Mild to moderate subcutaneous edema of the ankle and foot Electronically Signed: Elliott Landers MD at 21:45 EST , Service support ,
== END 2021-03-12 23:59 | disposition short-term general hospital (02) ==
PROVIDERS: PCP Family Medicine; Referring Provider Podiatrist; Visit Provider Family Medicine Geriatric Medicine
DX: I73.9 Peripheral vascular disease, unspecified (principal)
CPT/HCPCS: 73721; 93923

== ENCOUNTER 2021-03-14 07:09 | Outpatient (CLI) | payer MEDICARE, SELFPAY ==
--- NOTE | 2021-03-14 07:11 | NM_ITS ---
CLINICAL: 80-year-old male with reported history of colorectal carcinoma with current complaint of back discomfort. WHOLE BODY 99m Tc MDP RADIONUCLIDE BONE SCINTIGRAPHY COMPARISON: CT of the abdomen-pelvis report 03/04/2021 FINDINGS: Following the intravenous administration of 27.1 mCi of 99m Tc MDP, whole body bone images reveal: 1. Heterogeneous increased radiopharmaceutical concentration is defined in the fifth lumbar vertebra and sacrum, coccyx, bilateral sacral ala, the right posterior ilium, focally defined in the fourth lumbar vertebra anteriorly on the right. 2. Facilitated uptake is observed in the mid cervical spine posteriorly on the left, bilateral wrist articulations , the acromioclavicular and sternoclavicular compartments of both shoulders, knees bilaterally, right and left ankles. 3. The remaining skeletal structures are scintigraphically unremarkable with normal-appearing renal images and urinary bladder activity identified. NM/Bone Scan Whole Body IMPRESSION: 1. The increase in tracer uptake observed in the lower lumbar spine and sacrum, right posterior ilium likely represents osteoblastic turnover attributed to skeletal metastatic disease. 2. Degenerative arthritis is expressed in the cervical spine, bilateral shoulders, right and left wrists, knees bilaterally, the right and left ankles. Electronically Signed: Mark Hernandez DO at 10:28 EST Tel , Service support ,
== END 2021-03-14 23:59 | disposition short-term general hospital (02) ==
PROVIDERS: PCP Family Medicine; Referring Provider Family Medicine Geriatric Medicine; Visit Provider Family Medicine Geriatric Medicine
DX: C20 Malignant neoplasm of rectum (principal); C18.9 Malignant neoplasm of colon, unspecified; C61 Malignant neoplasm of prostate
CPT/HCPCS: 78306; A9503

== ENCOUNTER 2021-03-24 16:19 | Outpatient (CLI) | payer MEDICARE, SELFPAY ==
--- NOTE | 2021-03-24 16:30 | RAD_ITS ---
History: HX OF PROSTATE/RECTAL CA-NEW BONE METS EXAMINATION/TECHNIQUE: XR Chest 2 Views: COMPARISON: None FINDINGS: LINES/DEVICES: None. LUNGS: No consolidation, edema or effusion. No pneumothorax. MEDIASTINUM AND CARDIOVASCULAR STRUCTURES: Cardiac silhouette not enlarged. Central airways and mediastinal contour are unremarkable. BONES AND SOFT TISSUES: Unremarkable. RAD/Chest PA and Lateral IMPRESSION: No radiographic evidence of acute cardiopulmonary disease. at 1648 Reported and signed by: Rafa Larsen MD Electronically Signed: Rafa Larsen MD at 16:47 EST ,
== END 2021-03-24 23:59 | disposition home or self-care (01) ==
LOC: RAD 16:22
PROVIDERS: PCP Family Medicine; Referring Provider Urology; Visit Provider Urology
DX: C79.51 Secondary malignant neoplasm of bone (principal); Z85.46 Personal history of malignant neoplasm of prostate; Z85.048 Personal history of other malignant neoplasm of rectum, rectosigmoid junction, and anus
CPT/HCPCS: 71046

== ENCOUNTER 2021-05-06 16:32 | Outpatient (CLI) | payer MEDICARE, SELFPAY ==
[2021-05-06 17:30] LABS: Hematocrit 27.9 % (40-54); Hemoglobin 8.7 g/dL (13.0-16.5); Mean Corp Hgb Conc 31.2 g/dL (32-36); Mean Corpuscular Hgb 27.4 pg (27.0-32.0); Mean Platelet Vol. 8.6 fl (6.2-12.0); Platelet Count 295 K/mm3 (150-450); RBC Distribution Width SD 45.1 fl (35.1-43.9); Red Blood Count 3.17 M/mm3 (4.6-6.2); White Blood Count 8.4 K/mm3 (4.4-11.0)
[2021-05-06 17:42] LABS: Anion Gap 4 (5-15); BUN 35 mg/dL (7-18); Calcium,Total 9.2 mg/dL (8.5-10.1); Chloride 106 mmol/L (98-107); Creatinine, Serum 3.19 mg/dL (0.70-1.30); EST Glomerular Filtration Rate 20 mL/min (>60); Est Glom Filt Rate - Afr Amer 24 mL/min (>60); Glucose 146 mg/dL (74-106); Potassium 4.5 mmol/L (3.5-5.1); Sodium Level 138 mmol/L (136-145)
== END 2021-05-06 23:59 | disposition home or self-care (01) ==
LOC: LAB 16:46
PROVIDERS: PCP Family Medicine; Visit Provider Nurse Practitioner Family
DX: D64.9 Anemia, unspecified (principal); N18.30 Chronic kidney disease, stage 3 unspecified
CPT/HCPCS: 36415; 80048; 85027

== ENCOUNTER 2021-05-08 12:41 | Outpatient (CLI) | payer MEDICARE, SELFPAY | END 2021-05-08 23:59 | disposition home or self-care (01) | LOC: SDC 12:43 | PROVIDERS: PCP Family Medicine; Visit Provider Urology | DX: C61 Malignant neoplasm of prostate (principal); N13.39 Other hydronephrosis; Z53.9 Procedure and treatment not carried out, unspecified reason | CPT/HCPCS: 76000 ==

== ENCOUNTER 2021-05-27 12:30 | Inpatient (IN) | payer MEDICARE, SELFPAY ==
[2021-05-27 12:31] VITALS: BP 123/74; PULSE 102; RESP 18; TEMP 36.3; O2SAT 97; BMI 19.8
--- NOTE | 2021-05-27 13:14 | CT_ITS ---
STUDY: CT ABDOMEN AND PELVIS WITHOUT CONTRAST REASON FOR EXAM: Male, 80 years old. Abdominal pain. Decreased urine output. RADIATION DOSAGE (If Supplied By Facility): CTDIvol = ( 6.38 ) mGy, DLP = ( 318.93 ) mGycm TECHNIQUE: Transaxial images were obtained from the dome of the diaphragm to the symphysis pubis without oral contrast, and without intravenous contrast. Sagittal and coronal images were reconstructed. Individualized dose optimization techniques were used for this CT. COMPARISON: Comparison is made with prior examination dated 03/04/2021. FINDINGS: Stable 5.1 mm noncalcified nodule in the posterior medial segment of the right lower lobe. The visualized portions of the heart are within normal limits. Normal liver. Normal gallbladder and extrahepatic biliary system. Normal spleen. Normal pancreas. There is a small, circumscribed, smooth, low attenuation left adrenal mass, consistent with an adrenal adenoma. This measures 1.1 cm. Normal right adrenal gland. A double-J stent catheter is seen in the right kidney. There is atrophy of the right kidney. Moderate degree of right hydronephrosis and right hydroureter down to the urinary bladder. A left-sided double-J stent catheter is seen with the tip in the upper pole calyx of the left kidney and the distal tip is in the urinary bladder. Mild residual hydronephrosis. Normal visualized stomach. Normal small intestine. Surgical anastomosis seen in the lower rectal segment with presacral soft tissue prominence most likely postoperative in nature. This is unchanged. The appendix is visualized and appears normal. There is scattered atherosclerotic calcification of the abdominal aorta, without a demonstrated aneurysm. Normal inferior vena cava. Normal retroperitoneum. The urinary bladder is distended. A MEJIA catheter is seen within the urinary bladder. An air-fluid level is seen within the urinary bladder. Normal abdominal wall. Left again, there is dense sclerosis of the body of the L5 vertebrae as well as the sacrum. Focal sclerosis also seen along the anterior aspect of the L4 vertebral body. CT/Abdomen/Pelvis without Cont IMPRESSION: Bilateral hydronephrosis right worse than left with bilateral double-J stent catheters. Distended urinary bladder. MEJIA catheter seen within the urinary bladder. Stable sclerosis of the L5 vertebra and sacrum as well as the anterior aspect of the L4 vertebrae. Electronically Signed: Michael Cormier MD at 15:00 EDT ,
--- NOTE | 2021-05-27 13:18 | EDS_ITS ---
HPI History of Present Illness Chief Complaint: Mejia C/O Narrative Narrative: 80-year-old male with history of CKD, prostate cancer, UTI with indwelling Mejia catheter placed in February presenting with decreased urinary output. He states he has not been drinking much because he has been sleeping more. He states he is not nauseous but he has lack of appetite. He has some mild suprapubic pressure. His Mejia output has been decreased and now is very dark brown. He is not had a fever but feels generally weak. Patient has a history of renal stents as well these were placed by Dr. Hill in February he states. The family believes that they are up for being changed in the near fut ure. They called Dr. Hill's office and they were referred to the emergency room. [facility] Medical History Anemia Anemia due to chronic kidney disease Arthritis Back pain Cancer Cancer of colon with rectum Cancer of prostate Cancer of prostate Cancer of rectum Chronic kidney disease Chronic kidney disease, stage 3b Depression Diabetes Diarrhea Dietary restriction Former smoker H/O fungal disease Hearing loss, left Hearing loss, right High cholesterol History of echocardiogram History of edema History of immunosuppression therapy History of pain when walking Hx of transesophageal echocardiography (SHANNAN) for monitoring Hypertension Insulin dependent diabetes mellitus Kidney disease Osteoporosis Restless legs Self-catheterizes urinary bladder Tendonitis of ankle Walker as ambulation aid Wears dentures Wears glasses Wears hearing aid in both ears Home Medications cholecalciferol (vitamin D3) 1,000 unit PO DAILY 12/08/19 [History Last Taken 09/18/20] loperamide 2 mg PO BID 12/08/19 [History Last Taken 01/01/21 09:00] acetaminophen [Tylenol Extra Strength] 1,000 mg PO BID 09/18/20 [History Last Taken 09/18/20] Lantus Solostar U-100 Insulin 10 unit SUBCUT DAILY 12/25/20 [History Last Taken Unknown] mirtazapine 15 mg PO QHS 03/04/21 [History Last Taken Unknown] sulfamethoxazole-trimethoprim 1 tab PO BID 03/04/21 [History Last Taken Unknown] acetaminophen [Tylenol] 650 mg PO Q4H PRN PRN #0 tab 03/10/21 [Rx Last Taken Unknown] cefdinir 300 mg PO DAILY@2200 03/10/21 [History Last Taken Unknown] hydralazine 50 mg PO BID 03/10/21 [History Last Taken Unknown] sodium bicarbonate 650 mg PO BID 03/10/21 [History Last Taken Unknown] tamsulosin 0.4 mg PO DAILY 03/10/21 [History Last Taken Unknown] acetaminophen 1,000 mg PO Q6H PRN PRN #0 tab 03/26/21 [Rx Last Taken Unknown] oxycodone 2.5 mg PO Q4H PRN PRN 7 Days #21 tab 03/26/21 [Rx Last Taken Unknown] sodium bicarbonate 650 mg PO BID 30 Days #60 tab 03/26/21 [Rx Last Taken Unknown] tramadol 50 mg PO Q6H PRN PRN 7 Days #28 tab 03/26/21 [Rx Last Taken Unknown] Allergy/AdvReac Type Severity Reaction Status Date / Time No Known Allergies Allergy Verified 04/28/21 15:55 Family History Mother Diabetes Father CVA (cerebral vascular accident) Sister Heart disease Brother Heart disease Surgical History H/O partial resection of colon History of renal stent Hx of cystoscopy Hx of cystoscopy Hx of transurethral resection of prostate Social History household members: spouse housing: house current occupational status: retired Smoking Status: Former smoker alcohol intake: never substance use type: does not use ROS ROS ED Constitutional Constitutional ED: Denies chills or fever(s) Eyes Eyes: Denies blurry vision or change in vision ENT ENT ED: Denies rhinorrhea or sore throat Cardiovascular Cardiovascular: Denies chest pain or palpitations Respiratory/Chest Respiratory/Chest: Denies cough or dyspnea Gastrointestinal Gastrointestinal: Reports abdominal pain; Denies constipation, diarrhea, nausea or vomiting Genitourinary Genitourinary ED: Reports other Details: Dark urine with decreased urinary output Musculoskeletal Musculoskeletal: Denies arthralgias or myalgias Integumentary Denies rash Neurologic Neurologic: Denies headache(s) Psychiatric Psychiatric: Denies anxiety or depression EXAM Physical Exam Const Vital Signs: 05/27/21 12:31 05/27/21 14:48 05/27/21 15:32 Temperature 97.3 F L 98.9 F Temperature Source Temporal Oral Pulse Rate 102 H 100 Respiratory Rate 18 16 Blood Pressure 123/74 H 126/53 H 126/53 H Blood Pressure Mean 90 77 77 Pulse Ox 97 95 Oxygen Delivery Method Room Air Room Air Positive well nourished General Appearance ED: NAD HEENT Reports dry mucous membranes normocephalic and atraumatic Mouth ED: Yes dry mucous membranes Mouth: dry mucous membranes Eyes PERRL and EOMs intact bilaterally General Eye ED: Negative for pale conjunctiva or scleral icterus Resp normal respiratory effort GI GI Narrative: Suprapubic fullness. Abdomen nonperitoneal. Narrative: Mejia catheter bag has dark brown urine which is thick. Back/Spine no CVA tenderness Neuro oriented x3 Sensorium / Orientation: alert Psych mental status grossly normal Skin Lesions: no lesions Rashes: no rashes MDM MDM MDM Narrative Medical decision making narrative: Presenting with decreased p.o. intake and more tiredness than usual. Is not eating and drinking well. No nausea or vomiting however. Patient does have some suprapubic fullness on examination and his Mejia catheter has brown thick urine in the base. I suspect his Mejia catheter is not draining. The Mejia catheter was replaced and his urine now looks thick and yellow almost like pus. Lab work is obtained and his CBC shows a leukocytosis of 14.3. Hemoglobin is at baseline at 8.9. Platelets 275. Creatinine slightly increased to 3.53. Electrolytes are normal. Urinalysis shows 500 leukocyte esterase, greater than 100 leukocytes, 2+ bacteria and this was obtained after the Mejia catheter was changed. Given patient's history I will send this for culture. CT of the abdomen pelvis was obtained without contrast which shows bilateral hydroureteronephrosis which is likely due to his Mejia catheter not draining previously however patient does still have urine in the bladder. I spoke with Dr. Hill who is happy to see the patient in consult. I did express the patient's family's concern that he has the ureteral stents that may need to be changed. He recommended giving Cipro given his previ ous urine cultures. Patient was discussed with the hospitalist for admission. Will obtain blood cultures prior to starting antibiotics. Based on his vital signs I do not suspect sepsis. Impression: 1. UTI 2. Bilateral hydroureteronephrosis 3. History of prostate cancer 4. Generalized weakness 5. Urinary outlet obstruction 6. Leukocytosis Lab Data Attestation: I reviewed the patient's lab results. Labs: Laboratory Results - last 24 hr 05/27/21 05/27/21 05/27/21 13:30 13:30 14:10 WBC 14.3 H RBC 3.27 L Hgb 8.9 L Hct 28.1 L MCV 85.9 MCH 27.2 MCHC 31.7 L RDW Std Deviation 41.2 RDW Coeff of Darian 13.2 Plt Count 275 MPV 8.3 Immature Gran % (Auto) 1.300 H Neut % (Auto) 87.3 H Lymph % (Auto) 3.2 L [place] % (Auto) 5.9 Eos % (Auto) 2.0 Baso % (Auto) 0.3 Absolute Neuts (auto) 12.5 H Absolute Lymphs (auto) 0.46 L Nucleated RBC % 0 Sodium 133 L Potassium 4.5 Chloride 103 Carbon Dioxide 24.0 Anion Gap 6 BUN 41 H Creatinine 3.53 H Estim Creat Clear Calc 13.92 Est GFR (MDRD) Af Amer 22 L Est GFR (MDRD) Non-Af 18 L BUN/Creatinine Ratio 11.6 Glucose 243 H Calcium 8.9 Urine Color Brown Urine Clarity Turbid Urine pH 7.0 Ur Specific [place] 1.010 Urine Protein 100 H Urine Glucose (UA) Normal Urine Ketones 5 H Urine Occult Blood 250 H Urine Nitrite Negative Urine Bilirubin Negative Urine Urobilinogen 1 H Ur Leukocyte Esterase 500 H Urine RBC 10-25 SEEN Urine WBC >100 SEEN Ur Squamous Epith Cells 0 SEEN Amorphous Sediment 4+ Urine Bacteria 2+ Urine Mucus 0 SEEN Radiography Diagnostic Testing: Clinical Impression(s) from Imaging Studies Abdomen/Pelvis CT 05/27/21 13:14 IMPRESSION: Bilateral hydronephrosis right worse than left with bilateral double-J stent catheters. Distended urinary bladder. MEJIA catheter seen within the urinary bladder. Stable sclerosis of the L5 vertebra and sacrum as well as the anterior aspect of the L4 vertebrae. Electronically Signed: Michael Cormier MD at 15:00 EDT , Discharge Plan Triage Chief Complaint: Mejia C/O Other Complaint: Complaint ED Provider: Robert Meyers Dx/Rx/DC Orders Prescriptions: No Action loperamide 2 MG capsule 2 mg PO BID RF: 0 cholecalciferol (vitamin D3) 1,000 UNIT tablet 1,000 unit PO DAILY RF: 0 acetaminophen [Tylenol Extra Strength] 500 mg Tablet 1,000 mg PO BID RF: 0 Lantus Solostar U-100 Insulin 100 unit/mL (3 mL) Insulin Pen 10 unit SUBCUT DAILY RF: 0 sulfamethoxazole-trimethoprim 800-160 mg tablet 1 tab PO BID RF: 0 mirtazapine 15 mg tablet 15 mg PO QHS RF: 0 acetaminophen [Tylenol] 325 mg Tablet 650 mg PO Q4H PRN PRN (Reason: Fever, pain 1-12/01) Qty: 0 RF: 0 tamsulosin 0.4 MG capsule 0.4 mg PO DAILY RF: 0 sodium bicarbonate 650 mg tablet 650 mg PO BID RF: 0 hydralazine 50 MG tablet 50 mg PO BID RF: 0 cefdinir 300 mg capsule 300 mg PO DAILY@2200 RF: 0 tramadol 50 mg Tablet 50 mg PO Q6H PRN PRN (Reason: Pain Score 4-5) 7 Days Qty: 28 RF: 0 acetaminophen 500 mg Tablet 1,000 mg PO Q6H PRN PRN (Reason: Pain Score 1-3) Qty: 0 RF: 0 sodium bicarbonate 650 mg Tablet 650 mg PO BID 30 Days Qty: 60 RF: 0 oxycodone 5 mg Tablet 2.5 mg PO Q4H PRN PRN (Reason: Pain Score 6-10) 7 Days Qty: 21 RF: 0 Primary Care Provider: Camilla Birmingham
[2021-05-27] MEDS: 0.9% Normal Saline 1,000 ML 999 ML IV ×2 (13:39→14:47)
[2021-05-27 13:40] LABS: Absolute Lymphocyte Count 0.46 X10^3/uL (0.83-4.51); Absolute Neutrophil Count 12.5 X10^3/uL (2.0-7.7); Basophil# 0.04 X10^3/uL; Basophil% 0.3 % (0-1); Eosinophil# 0.28 X10^3/uL; Hematocrit 28.1 % (40-54); Hemoglobin 8.9 g/dL (13.0-16.5); Lymphocyte # 0.46 X10^3/ul (0.83-4.51); Lymphocyte % 3.2 % (19-41); Mean Corp Hgb Conc 31.7 g/dL (32-36); Mean Corpuscular Hgb 27.2 pg (27.0-32.0); Mean Corpuscular Volume 85.9 fL (80-94); Mean Platelet Vol. 8.3 fl (6.2-12.0); Monocyte# 0.85 X10^3/uL; Monocyte% 5.9 % (0-10); NRBC Flagged by Analyzer 0 % (0-5); Neutrophil # 12.48 X10^3/uL (2.7-7.7); Neutrophil % 87.3 % (47-70); POSITIVE DIFFERENTIAL YES; Platelet Count 275 K/mm3 (150-450); RBC Distribution Width CV 13.2 % (11.6-14.6); RBC Distribution Width SD 41.2 fl (35.1-43.9); Red Blood Count 3.27 M/mm3 (4.6-6.2); White Blood Count 14.3 K/mm3 (4.4-11.0)
[2021-05-27 13:43] LABS: Differential Indicated SCAN CRITERIA MET
[2021-05-27 13:54] LABS: Anion Gap 6 (5-15); BUN 41 mg/dL (7-18); BUN/Creat Ratio 11.6 RATIO (10-20); Calcium,Total 8.9 mg/dL (8.5-10.1); Chloride 103 mmol/L (98-107); Creatinine, Serum 3.53 mg/dL (0.70-1.30); EST Glomerular Filtration Rate 18 mL/min (>60); Est Glom Filt Rate - Afr Amer 22 mL/min (>60); Estimated Creatinine Clearance 13.92 ml/min; Glucose 243 mg/dL (74-106); Potassium 4.5 mmol/L (3.5-5.1); Sodium Level 133 mmol/L (136-145)
[2021-05-27 14:19] LABS: Mucous, Urine 0 SEEN /hpf (<or=2+); Squamous Epithelial Cells - UA 0 SEEN /hpf (0-5)
[2021-05-27 14:21] LABS: Color, Urine Brown (Yellow); Glucose, Dipstick Normal (Normal); Ketone-Dipstick 5 mg/dl (Negative); Leukocyte Esterase-Dipstick 500 /ul (Negative); Nitrite-Dipstick Negative (Negative); Occult Blood-Urine 250 /ul (Negative); Protein-Dipstick 100 mg/dl (Negative); Urine Bilirubin Dipstick Negative (Negative); Urine Clarity Turbid (Clear); Urine Urobilinogen 1 mg/dl (Normal)
[2021-05-27 14:30] LABS: Amorphous Sediment 4+; Bacteria 2+ /hpf (None Seen); Red Blood Cells-Urine 10-25 SEEN /hpf (0-5); White Blood Cells >100 SEEN /hpf (0-5)
[2021-05-27 14:48] VITALS: BP 126/53; PULSE 100; RESP 16; TEMP 37.2; O2SAT 95
[2021-05-27 15:32] VITALS: BP 126/53
[2021-05-27] MEDS: Ciprofloxacin 400 MG/200 ML BAG 200 MG IV (15:47)
--- NOTE | 2021-05-27 15:48 | NURSING ---
MED SURG KEN UTI, HYRONEPHROSIS
[2021-05-27 16:15] VITALS: BP 140/58; PULSE 90; RESP 16; TEMP 37.1; O2SAT 95
--- NOTE | 2021-05-27 16:29 | CM.ED ---
RN CM Assessment Introduced role of RN CM to patient, patient Terri and Dtr Jp at bedside.? Patient is alert, oriented and able?to participate in RN CM Assessment. ?Care providers, pharmacy, and demographics verified. Admit Dx: IP for UTI with B/l Hydronephrosis Re-Admit: No. Was admitted 03/04-03/10/21 for DEISI on CKD Barriers/Issues: None. Patient has urethral stents and is due to have them replaced. Hoping to have that done this admission. Was Dc'd to TCU on last admission and states helped a little but still very weak. PCP: Srinivas Thayer Specialists: Liz- Uro, Genevieve- Nephro. Has not seen [place] in awhile. Active with [facility]- Camilla Borja. Preferred Pharmacy: [facility] Insurance: [employer] Benefit:?Yes LNOK: Terri Means LW/HPOA: Both on file with [facility]. HPOA- Terri Means Living Arrangements:?Lives with in a 2SH, 4 steps to enter home ADL?s: Patient ambulates approx 5ft with walker since DC from TCU and uses manual WC. Terri assists with all ADLs Transportation: Dtr or son in law. Has two dtrs- one lives in [place] and one lives in [place] and are supportive. DME: Hospital bed, BSC (does not use), Lift chair, Manual WC, Walker, Rollator, SC, RTS, Grab bars HHC: Past- [facility] SNF: Past TCU Goal: TBD DC PLAN: TBD. F/u on mobility and with patient/family. CHARLY Menedz
--- NOTE | 2021-05-27 16:37 | PCM.HP.STD ---
HPI - General General Date of Admission: 05/27/21 Date of Service: 05/27/21 Chief Complaint: Decreased urine output HPI Narrative ALEA SALGADO, is a 80 M who presented to the emergency department at [facility] on 05/27/2021 with decreased urine output. The patient has had a chronic Mejia for some time now related to prostate cancer and evidently he had decreased urine output at home. His oral intake has been poor with both food and liquids however this is not new. Family states that in the last 24 hours his urine has become very dark brown. The patient denies any fever or chills but has had some generalized weakness and increased sleeping as of late. The patient had renal stents that were exchanged by Dr. Hill and February 2021. The family called Dr. Hill office with their above concerns and they directed them to the emergency department. The patient does have a known history of metastatic prostate cancer and is not currently undergoing chemotherapy. He is being followed by [facility] with her last visit being 04/29/2021. It appears that he follows with Dr. Arnold for oncology and his performance status was so poor that he is not a candidate for chemotherapy at this time. In the emergency department his vital signs were overall unremarkable. His CBC shows a leukocytosis with a white count of 14.3 and a left shift is present. He has a chronic stable normocytic anemia with a hemoglobin of 8.9 currently. His platelet count is normal. His chemistry panel shows hyponatremia however his serum glucose is 243 and when corrected serum sodium is 1 35-1 36. His BUN is 41 and his serum creatinine is 3.53. Both his serum BUN and creatinine appear to have been fluctuating however most recent baseline appears to be 3.2-3.3. His UA shows protein ketones occult blood leukoesterase greater than 100 white cells per high-power field and 2+ bacteria with amorphous sediment. A CT of his abdomen pelvis was performed given his urinary issues and history. The CT showed bilateral hydronephrosis that was greater on the right with bilateral double-J stent catheters, a distended urinary bladder with Mejia noted in the urinary bladder and stable sclerosis of the L5 vertebrae and sacrum as well as the anterior aspect of the L4 vertebrae. There is also a small circumscribed low-attenuation adrenal mass that is 1.1 cm and is consistent with an adrenal adenoma and a 5.1 mm noncalcified nodule in the posterior medial segment of the right lower lobe. The case was discussed with urology by the emergency department physician and they recommended admission and treatment for his UTI with Cipro based on previous cultures as well as consultation to urology for stent exchange. [facility] Medical History Anemia Anemia due to chronic kidney disease Arthritis Back pain Cancer Cancer of colon with rectum Cancer of prostate Cancer of prostate Cancer of rectum Chronic kidney disease Chronic kidney disease, stage 3b Depression Diabetes Diarrhea Dietary restriction Former smoker H/O fungal disease Hearing loss, left Hearing loss, right High cholesterol History of echocardiogram History of edema History of immunosuppression therapy History of pain when walking Hx of transesophageal echocardiography (SHANNAN) for monitoring Hypertension Insulin dependent diabetes mellitus Kidney disease Osteoporosis Pathological compression fracture of lumbar vertebra Restless legs Self-catheterizes urinary bladder Tendonitis of ankle Walker as ambulation aid Wears dentures Wears glasses Wears hearing aid in both ears Home Medications cholecalciferol (vitamin D3) 1,000 unit PO DAILY 12/08/19 [History Last Taken 05/26/21] loperamide 2 mg PO BID 12/08/19 [History Last Taken 05/26/21] sodium bicarbonate 650 mg PO BID 03/10/21 [History Last Taken 05/26/21] acetaminophen [Tylenol Arthritis] 650 mg PO Q8H PRN 05/27/21 [History Last Taken 05/26/21] calcium carbonate [Calcium 600] 600 mg PO DAILY 05/27/21 [History Last Taken 05/26/21] mirtazapine 30 mg PO QHS 05/27/21 [History Last Taken 05/26/21] Allergy/AdvReac Type Severity Reaction Status Date / Time No Known Allergies Allergy Verified 04/28/21 15:55 Family History Mother Diabetes Father CVA (cerebral vascular accident) Sister Heart disease Brother Heart disease Surgical History H/O partial resection of colon History of renal stent Hx of cystoscopy Hx of cystoscopy Hx of transurethral resection of prostate Social History household members: spouse housing: house current occupational status: retired Smoking Status: Former smoker alcohol intake: never substance use type: does not use ROS Constitutional Constitutional: Reports anorexia, change in weight, fatigue, malaise and weakness; Denies chills, fever(s), night sweats or other Eyes Eyes: Denies blurry vision, change in eye color, change in vision, discharge from eye(s), double vision, erythema, eye pain, loss of vision or other ENT HEENT: Denies abnormal hearing, dysphagia, ear pain, epistaxis, headache(s), hearing loss, nasal congestion, nasal discharge, post nasal drip, sinus pressure, sore throat or other Cardiovascular Cardiovascular: Denies chest pain, claudication, dyspnea on exertion, edema, lightheadedness, orthopnea, palpitations, paroxysmal nocturnal dyspnea, rapid heart rate, syncope or other Respiratory/Chest Respiratory/Chest: Denies cough, dyspnea, excessive phlegm production, hemoptysis, productive cough, shortness of breath at rest, shortness of breath with exertion, wheezing or other Gastrointestinal Gastrointestinal: Denies abdominal pain, coffee ground emesis, constipation, diarrhea, dyspepsia, hematemesis, hematochezia, loose stools, melena, nausea, vomiting or other Genitourinary Genitourinary: Denies burning urination, difficulty urinating, dysuria, hematuria, nocturia, urinary frequency, urinary hesitancy, urinary incontinence, urinary urgency or other Musculoskeletal Musculoskeletal: Reports back pain; Denies arthralgias, joint pain, joint stiffness, joint swelling, myalgias, neck pain or other Neurologic Neurologic: Denies abnormal gait, abnormal speech, confusion, disequilibrium, dizziness, focal weakness, headache(s), numbness, paresthesias, seizure-like activity, seizures, syncope, tingling, tremor(s) or other Psychiatric Psychiatric: Reports depression; Denies anxiety, homicidal ideation, suicidal ideation or other Endocrine Endocrinology: Denies change in body appearance, cold intolerance, excessive sweating, heat intolerance, polydipsia, polyuria or other Hematologic/Lymphatic Hematologic/Lymphatic: Denies anemia, easy bleeding, easy bruising, lymphadenopathy or other Allergic/Immunologic Allergic/Immunologic: Denies rhinitis, hives, eczemia, asthma or other Vital Signs Vital Signs Vital Signs: 05/27/21 12:31 05/27/21 14:48 05/27/21 15:32 Temperature 97.3 F L 98.9 F Temperature Source Temporal Oral Pulse Rate 102 H 100 Respiratory Rate 18 16 Blood Pressure 123/74 H 126/53 H 126/53 H Blood Pressure Mean 90 77 77 Pulse Ox 97 95 Oxygen Delivery Method Room Air Room Air 05/27/21 16:15 Temperature 98.8 F Temperature Source Oral Pulse Rate 90 Respiratory Rate 16 Blood Pressure 140/58 H Blood Pressure Mean 85 Pulse Ox 95 Oxygen Delivery Method Room Air Weight Weight: 58.967 kg Body Mass Index (BMI) 19.8 Physical Exam Const alert, oriented x3 and no apparent distress Constitutional Narrative: Thin older white male lying in bed, appears frail but nontoxic, appears comfortable at this time, family at bedside General Appearance: cooperative HEENT normocephalic, head/scalp atraumatic and moist oral mucous membranes HEENT Narrative: Upper and lower dentures in place, Mallampati 2, no thrush, mildly hard of hearing Eyes PERRL and EOMs intact bilaterally Eyes Narrative: Mildly pale conjunctiva bilaterally, no scleral icterus Neck no lymphadenopathy, supple, no JVD and no carotid bruits Neck Narrative: Trachea midline, no thyroid enlargement Resp normal respiratory effort, no retractions, no use of accessory muscles and clear to auscultation bilaterally Resp Narrative: Diminished but clear Auscultation: Negative for crackles, rales, rhonchi or wheezes Cardio regular rate, regular rhythm, S1 normal heart sound, S2 normal heart sound, no murmurs, no rub, no gallops, no clicks and no JVD GI normal to inspection, nondistended, normoactive bowel sounds, soft to palpation, non-tender and non-distended Extremity no clubbing, cyanosis or edema Peripheral Pulses: Yes pulses 2+ throughout Skin no rashes or lesions noted, no wounds, no jaundice, no petechiae and no mottling Skin Narrative: Slight skin tenting on turgor assessment Neuro oriented x3, CN's II-XII intact bilaterally, moves all extremities and no focal motor deficits Neuro Narrative: Significant analyzed weakness Sensorium / Orientation: awake and alert Speech: speech normal Psych Psych Narrative: Affect is slightly flat and mood is depressed Results Lab / Micro Data Attestation: I reviewed the patient's lab results. Result Diagrams: 05/27/21 13:30 05/27/21 13:30 Labs: Laboratory Results - last 24 hr 05/27/21 13:30: WBC 14.3 H, RBC 3.27 L, Hgb 8.9 L, Hct 28.1 L, MCV 85.9, MCH 27.2, MCHC 31.7 L, RDW Std Deviation 41.2, RDW Coeff of Darian 13.2, Plt Count 275, MPV 8.3, Immature Gran % (Auto) 1.300 H, Neut % (Auto) 87.3 H, Lymph % (Auto) 3.2 L, [place] % (Auto) 5.9, Eos % (Auto) 2.0, Baso % (Auto) 0.3, Absolute Neuts (auto) 12.5 H, Absolute Lymphs (auto) 0.46 L, Nucleated RBC % 0 05/27/21 13:30: Sodium 133 L, Potassium 4.5, Chloride 103, Carbon Dioxide 24.0, Anion Gap 6, BUN 41 H, Creatinine 3.53 H, Estim Creat Clear Calc 13.92, Est GFR (MDRD) Af Amer 22 L, Est GFR (MDRD) Non-Af 18 L, BUN/Creatinine Ratio 11.6, Glucose 243 H, Calcium 8.9 05/27/21 14:10: Urine Color Brown, Urine Clarity Turbid, Urine pH 7.0, Ur Specific [place] 1.010, Urine Protein 100 H, Urine Glucose (UA) Normal, Urine Ketones 5 H, Urine Occult Blood 250 H, Urine Nitrite Negative, Urine Bilirubin Negative, Urine Urobilinogen 1 H, Ur Leukocyte Esterase 500 H, Urine RBC 10-25 SEEN, Urine WBC >100 SEEN, Ur Squamous Epith Cells 0 SEEN, Amorphous Sediment 4+, Urine Bacteria 2+, Urine Mucus 0 SEEN Radiology Impression Abdomen/Pelvis CT 05/27/21 13:14 IMPRESSION: Bilateral hydronephrosis right worse than left with bilateral double-J stent catheters. Distended urinary bladder. MEJIA catheter seen within the urinary bladder. Stable sclerosis of the L5 vertebra and sacrum as well as the anterior aspect of the L4 vertebrae. Electronically Signed: Michael Cormier MD at 15:00 EDT , Assessment & Plan Assessment/Plan (1) Acute UTI: (2) Bilateral hydronephrosis: (3) Hyponatremia: (4) Severe malnutrition: (5) Leukocytosis: (6) Debility: PLAN: Urinary tract infection with bilateral hydronephrosis -Patient with chronic indwelling Mejia and recent bilateral ureteral stent 03/15 exchange -Follows with Dr. Hill -UA is consistent with infection -Blood cultures were drawn as patient does have history of bacteremia -We will start ciprofloxacin based on previous cultures -Consult urology--> Case was discussed with Dr. Hill per the emergency department physician -Anticipate stent exchange this hospitalization Pseudohyponatremia -Sodium is 133 with a blood sugar of 243 -Actual sodium is 135-136 -Monitor Leukocytosis -Suspect secondary to UTI -Monitor on antibiotics -Repeat CBC in a.m. Severe malnutrition -P.o. intake is poor -Add supplements -Consult dietitian -We will utilize IV fluids since oral intake has been poor for both food and liquids Debility -Patient is currently enrolled in palliative care but not hospice -Consult PT/OT CKD stage IV -Baseline serum creatinine is questionable as it appears that fluctuated significantly -Suspect his baseline is 2.5-3 -Currently slightly elevated beyond that -Anticipate this is related to his bilateral hydronephrosis -Avoid nephrotoxins -Avoid morphine for pain -Repeat BMP in a.m. -Continue oral bicarbonate Anemia-chronic secondary to CKD -Counts are stable -No signs of active bleeding -James CBC in a.m. Metastatic prostate cancer -Diagnosed in 2008--> [place] score was 6 -Treated at [facility] with neoadjuvant chemo radiation for rectal cancer with boost to prostate gland -TURP done 2009 -Was found to have metastatic disease to the lumbar sacral spine in February 2021 -Deemed too frail for chemotherapy -Palliative care is following the patient as an outpatient History of stage III rectal CA -Diagnosed in 2008 -Neoadjuvant chemoradiation -History of low anterior resection with diverting loop ileostomy 12/13/2008 -Completed chemotherapy with 5-FU/leucovorin 07/23/2009 -Deemed in remission DM-2 -Currently on no agents for hyperglycemia -Blood sugar was 243 on admission -We will add sliding scale -We will liberalize diet secondary to malnutrition -Trigger may also be elevated secondary to infection History of tobacco abuse -No current issues Lumbar pathological compression fractures -Patient denies any current pain -Monitor clinically Depression -Continue Remeron DVT prophylaxis -Heparin 5000 units twice daily -SCDs CODE STATUS -DNR CCA no intubation as per discussion the emergency department Charges/Coding Visit Charges Inpatient E&M: 26199 Init Hosp L3
[2021-05-27 17:14] VITALS: BMI 14.5
[2021-05-27 17:16] VITALS: BP 128/62; PULSE 94; RESP 18; TEMP 37.4; O2SAT 99
[2021-05-27] MEDS: Lactated Ringers 1,000 ML 70 ML IV (18:15)
[2021-05-27 21:28] VITALS: BP 137/56; PULSE 89; RESP 18; TEMP 37.9; O2SAT 97
[2021-05-27] MEDS: Heparin Injection (Vial) 5,000 UNIT/ML VIAL 5000 UNIT SC (21:48)
[2021-05-27] MEDS: Loperamide 2 MG Capsule PO (21:48)
[2021-05-27] MEDS: Sodium Bicarbonate 650 MG Tablet PO (21:48)
[2021-05-27] MEDS: Mirtazapine 30 MG Tablet PO (21:48)
[2021-05-27] MEDS: Acetaminophen 325 MG Tablet 650 MG PO (21:48)
[2021-05-27 21:50] LABS: Bedside Glucose 146 mg/dL (74-106)
[2021-05-28] VITALS (12 sets, daily range): BP systolic 100–150; BP diastolic 50–72; PULSE 84–121; RESP 16–18; TEMP 36.6–38.3; O2SAT 94–100; BMI 14.5
[2021-05-28] MEDS: Menthol/Lanolin/Calamine/Znox 113 GM Tube 1 APPLIC TOPICAL ×4 (03:01→21:53)
--- NOTE | 2021-05-28 05:00 | EKG12_ITS ---
Test Reason : PRE-OP Blood Pressure : / mmHG Vent. Rate : 096 BPM Atrial Rate : 096 BPM P-R Int : 178 ms QRS Dur : 094 ms QT Int : 352 ms P-R-T Axes : 049 -11 024 degrees QTc Int : 444 ms Normal sinus rhythm Normal ECG Confirmed by TWYLA MICHELLE, SOCRATES ([id number]), fashion editor TIM BOSE ([id number]) on 06/05/2021 1:31:50 PM Referred By: KEN Confirmed By:SOCRATES WAKEFIELD MD
[2021-05-28 06:45] LABS: Bedside Glucose 116 mg/dL (74-106)
[2021-05-28 06:50] LABS: Absolute Lymphocyte Count 0.67 X10^3/uL (0.83-4.51); Absolute Neutrophil Count 8.2 X10^3/uL (2.0-7.7); Basophil# 0.03 X10^3/uL; Basophil% 0.3 % (0-1); Eosinophil# 0.03 X10^3/uL; Eosinophils% 0.3 % (0-5); Hematocrit 24.7 % (40-54); Hemoglobin 7.7 g/dL (13.0-16.5); Lymphocyte # 0.67 X10^3/ul (0.83-4.51); Lymphocyte % 6.9 % (19-41); Mean Corp Hgb Conc 31.2 g/dL (32-36); Mean Corpuscular Hgb 27.2 pg (27.0-32.0); Mean Corpuscular Volume 87.3 fL (80-94); Mean Platelet Vol. 9.4 fl (6.2-12.0); Monocyte# 0.68 X10^3/uL; NRBC Flagged by Analyzer 0 % (0-5); Neutrophil # 8.17 X10^3/uL (2.7-7.7); Neutrophil % 84.5 % (47-70); POSITIVE COUNT YES; Platelet Count 223 K/mm3 (150-450); RBC Distribution Width CV 13.2 % (11.6-14.6); RBC Distribution Width SD 41.9 fl (35.1-43.9); Red Blood Count 2.83 M/mm3 (4.6-6.2); White Blood Count 9.7 K/mm3 (4.4-11.0)
[2021-05-28 06:51] LABS: Differential Indicated SCAN CRITERIA MET
[2021-05-28 07:17] LABS: Phosphorus 2.7 mg/dL (2.5-4.9)
[2021-05-28 07:18] LABS: ALB/GLOB Ratio 0.4 RATIO (0.9-2.4); AST(SGOT) 13 U/L (15-37); Alanine Aminotransfer ALT/SGPT 11 U/L (16-61); Albumin, Serum 1.9 g/dL (3.2-5.0); Alkaline Phosphatase 182 U/L (45-117); Anion Gap 6 (5-15); BUN 38 mg/dL (7-18); BUN/Creat Ratio 12.8 RATIO (10-20); Calcium,Total 8.6 mg/dL (8.5-10.1); Chloride 109 mmol/L (98-107); Creatinine, Serum 2.98 mg/dL (0.70-1.30); EST Glomerular Filtration Rate 22 mL/min (>60); Est Glom Filt Rate - Afr Amer 26 mL/min (>60); Estimated Creatinine Clearance 12.11 ml/min; Globulin 4.5 g/dL (2.2-4.2); Glucose 116 mg/dL (74-106); Protein, Total 6.4 g/dL (6.4-8.2); Sodium Level 137 mmol/L (136-145)
--- NOTE | 2021-05-28 07:30 | PCM.CONS.U ---
Assessment & Plan Assessment/Plan (1) Recent DEISI on CKD: (2) Complicated acute cystitis: (3) Hydronephrosis: HPI Consult Data Date of Consult: 05/28/21 HPI Narrative HPI Narrative: ALEA SALGADO, is a 80 M who presents to the hospital with worsening renal function he has a catheter and bilateral stents CT scan was reviewed he needs to have a stent change so plan to taken to surgery today for cystoscopy and bilateral stent change and a Mejia change. [facility] Medical History (Updated 05/28/21 @ 07:[address] Tal Hill MD) Anemia Anemia due to chronic kidney disease Arthritis Back pain Cancer Cancer Cancer of colon with rectum Cancer of prostate Cancer of prostate Cancer of rectum Chronic indwelling Mejia catheter Chronic kidney disease Chronic kidney disease, stage 3b Depression Diabetes Diarrhea Dietary restriction Former smoker H/O fungal disease Hearing loss, left Hearing loss, right High cholesterol History of echocardiogram History of edema History of immunosuppression therapy History of pain when walking Hx of transesophageal echocardiography (SHANNAN) for monitoring Hypertension Insulin dependent diabetes mellitus Kidney disease Osteoporosis Pathological compression fracture of lumbar vertebra Restless legs Self-catheterizes urinary bladder Tendonitis of ankle Walker as ambulation aid Wears dentures Wears glasses Wears hearing aid in both ears Home Medications cholecalciferol (vitamin D3) 1,000 unit PO DAILY 12/08/19 [History Last Taken 05/26/21] loperamide 2 mg PO BID 12/08/19 [History Last Taken 05/26/21] sodium bicarbonate 650 mg PO BID 03/10/21 [History Last Taken 05/26/21] acetaminophen [Tylenol Arthritis] 650 mg PO Q8H PRN 05/27/21 [History Last Taken 05/26/21] calcium carbonate [Calcium 600] 600 mg PO DAILY 05/27/21 [History Last Taken 05/26/21] mirtazapine 30 mg PO QHS 05/27/21 [History Last Taken 05/26/21] Allergy/AdvReac Type Severity Reaction Status Date / Time No Known Allergies Allergy Verified 04/28/21 15:55 Family History Mother Diabetes Father CVA (cerebral vascular accident) Sister Heart disease Brother Heart disease Surgical History H/O partial resection of colon History of renal stent Hx of cystoscopy Hx of cystoscopy Hx of transurethral resection of prostate Social History household members: spouse housing: house current occupational status: retired Smoking Status: Former smoker alcohol intake: never substance use type: does not use ROS Constitutional Constitutional: Denies chills, fever(s) or malaise Eyes Eyes: Denies blurry vision or change in vision ENT HEENT: Reports none Cardiovascular Cardiovascular: Denies chest pain or palpitations Respiratory/Chest Respiratory/Chest: Denies cough or shortness of breath with exertion Gastrointestinal Gastrointestinal: Denies abdominal pain, constipation or diarrhea Musculoskeletal Musculoskeletal: Denies back pain, joint stiffness or joint swelling Integumentary Integumentary: Denies dry skin, jaundice, lesions or rash Neurologic Neurologic: Denies confusion, syncope or weakness Psychiatric Psychiatric: Reports none; Denies anxiety or depression Endocrine Endocrinology: Denies excessive sweating, fatigue or flushing Hematologic/Lymphatic Hematologic/Lymphatic: Denies anemia, easy bleeding or easy bruising Physical Exam Const alert and oriented x3 General Appearance: cooperative HEENT normocephalic, head/scalp atraumatic, EAC's normal and TM's normal bilaterally Eyes PERRL and EOMs intact bilaterally Pupil: sluggish Neck no lymphadenopathy, supple and no JVD General: trachea midline Lymph Lymphatic: no lymphadenopathy noted, lymphedema and lymphadenopathy Resp normal respiratory effort, normal air movement and clear to auscultation bilaterally Cardio regular rate, regular rhythm and peripheral pulses 2+ throughout GI soft to palpation, non-tender and non-distended Extremity normal capillary refill and no clubbing, cyanosis or edema General Extremity: no tenderness to palpation of joints or extremities Skin no rashes or lesions noted General Skin Exam: turgor normal Lesions: no lesions Rashes: no rashes Neuro CN's II-XII intact bilaterally Speech: speech normal Motor Exam: strength 5/5 throughout; Negative for general weakness Psych thought process normal, cooperative and affect normal Appearance: appropriate Lab / Micro Data Result Diagrams: 05/28/21 05:55 05/28/21 05:55 Labs: Laboratory Results - last 24 hr 05/27/21 13:30: WBC 14.3 H, RBC 3.27 L, Hgb 8.9 L, Hct 28.1 L, MCV 85.9, MCH 27.2, MCHC 31.7 L, RDW Std Deviation 41.2, RDW Coeff of Darian 13.2, Plt Count 275, MPV 8.3, Immature Gran % (Auto) 1.300 H, Neut % (Auto) 87.3 H, Lymph % (Auto) 3.2 L, [place] % (Auto) 5.9, Eos % (Auto) 2.0, Baso % (Auto) 0.3, Absolute Neuts (auto) 12.5 H, Absolute Lymphs (auto) 0.46 L, Nucleated RBC % 0 05/27/21 13:30: Sodium 133 L, Potassium 4.5, Chloride 103, Carbon Dioxide 24.0, Anion Gap 6, BUN 41 H, Creatinine 3.53 H, Estim Creat Clear Calc 13.92, Est GFR (MDRD) Af Amer 22 L, Est GFR (MDRD) Non-Af 18 L, BUN/Creatinine Ratio 11.6, Glucose 243 H, Calcium 8.9 05/27/21 14:10: Urine Color Brown, Urine Clarity Turbid, Urine pH 7.0, Ur Specific [place] 1.010, Urine Protein 100 H, Urine Glucose (UA) Normal, Urine Ketones 5 H, Urine Occult Blood 250 H, Urine Nitrite Negative, Urine Bilirubin Negative, Urine Urobilinogen 1 H, Ur Leukocyte Esterase 500 H, Urine RBC 10-25 SEEN, Urine WBC >100 SEEN, Ur Squamous Epith Cells 0 SEEN, Amorphous Sediment 4+, Urine Bacteria 2+, Urine Mucus 0 SEEN 05/27/21 21:26: POC Glucose 146 H 05/28/21 05:55: WBC 9.7, RBC 2.83 L, Hgb 7.7 L, Hct 24.7 L, MCV 87.3, MCH 27.2, MCHC 31.2 L, RDW Std Deviation 41.9, RDW Coeff of [place]arian 13.2, Plt Count 223, MPV 9.4, Immature Gran % (Auto) 1.000 H, Neut % (Auto) 84.5 H, Lymph % (Auto) 6.9 L, [place] % (Auto) 7.0, Eos % (Auto) 0.3, Baso % (Auto) 0.3, Absolute Neuts (auto) 8.2 H, Absolute Lymphs (auto) 0.67 L, Nucleated RBC % 0 05/28/21 05:55: Sodium 137, Potassium 4.0, Chloride 109 H, Carbon Dioxide 22.0, Anion Gap 6, BUN 38 H, Creatinine 2.98 H, Estim Creat Clear Calc 12.11, Est GFR (MDRD) Af Amer 26 L, Est GFR (MDRD) Non-Af 22 L, BUN/Creatinine Ratio 12.8, Glucose 116 H, Calcium 8.6, Magnesium 2.0, Total Bilirubin 0.30, AST 13 L, ALT 11 L, Alkaline Phosphatase 182 H, Total Protein 6.4, Albumin 1.9 L, Globulin 4.5 H, Albumin/Globulin Ratio 0.4 L 05/28/21 05:55: Phosphorus 2.7 05/28/21 05:55: Hemoglobin A1c 6.0 H 05/28/21 06:21: POC Glucose 116 H Radiology Impression Abdomen/Pelvis CT 05/27/21 13:14 IMPRESSION: Bilateral hydronephrosis right worse than left with bilateral double-J stent catheters. Distended urinary bladder. MEJIA catheter seen within the urinary bladder. Stable sclerosis of the L5 vertebra and sacrum as well as the anterior aspect of the L4 vertebrae. Electronically Signed: Michael Cormier MD at 15:00 EDT ,
[2021-05-28] MEDS: Lactated Ringers 1,000 ML 70 ML IV ×2 (09:55→17:40)
[2021-05-28] MEDS: Cholecalciferol (VIT D3) 25 MCG TABLET (1,000 UNITS) PO (10:21)
[2021-05-28] MEDS: Loperamide 2 MG Capsule PO ×2 (10:21→21:55)
[2021-05-28] MEDS: Sodium Bicarbonate 650 MG Tablet PO ×2 (10:21→21:55)
[2021-05-28] MEDS: Ciprofloxacin 400 MG/200 ML BAG 200 MG IV (10:22)
--- NOTE | 2021-05-28 10:42 | PCM.PN.HOSP ---
Subjective Subjective Patient was seen and examined today, he was admitted yesterday for acute cystitis with bilateral hydronephrosis, patient is going to have bilateral ureteral stent changes today. 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 It appears from medical records, patient was seen by [facility] medicine in April of this year at his home. Objective Data Objective Data Vital Signs: Vital Signs Temp Pulse Resp BP Pulse Ox 99.6 F H 102 H 16 136/63 H 96 05/28/21 07:44 05/28/21 07:54 05/28/21 07:54 05/28/21 07:44 05/28/21 07:54 Oxygen Delivery Method Room Air Weight: 43.3 kg Body Mass Index (BMI) 14.5 Intake & Output: Intake and Output for Last 24 Hours 05/26/21 05/27/21 05/28/21 23:59 23:59 23:59 Intake Total 2550 / 2550 1300 / 1300 Output Total 700 / 700 950 / 950 Balance 1850 / 1850 350 / 350 Lab / Micro Data Result Diagrams: 05/28/21 05:55 05/28/21 05:55 Labs: Laboratory Results - last 24 hr 05/27/21 13:30: WBC 14.3 H, RBC 3.27 L, Hgb 8.9 L, Hct 28.1 L, MCV 85.9, MCH 27.2, MCHC 31.7 L, RDW Std Deviation 41.2, RDW Coeff of Darian 13.2, Plt Count 275, MPV 8.3, Immature Gran % (Auto) 1.300 H, Neut % (Auto) 87.3 H, Lymph % (Auto) 3.2 L, [place] % (Auto) 5.9, Eos % (Auto) 2.0, Baso % (Auto) 0.3, Absolute Neuts (auto) 12.5 H, Absolute Lymphs (auto) 0.46 L, Nucleated RBC % 0 05/27/21 13:30: Sodium 133 L, Potassium 4.5, Chloride 103, Carbon Dioxide 24.0, Anion Gap 6, BUN 41 H, Creatinine 3.53 H, Estim Creat Clear Calc 13.92, Est GFR (MDRD) Af Amer 22 L, Est GFR (MDRD) Non-Af 18 L, BUN/Creatinine Ratio 11.6, Glucose 243 H, Calcium 8.9 05/27/21 14:10: Urine Color Brown, Urine Clarity Turbid, Urine pH 7.0, Ur Specific [place] 1.010, Urine Protein 100 H, Urine Glucose (UA) Normal, Urine Ketones 5 H, Urine Occult Blood 250 H, Urine Nitrite Negative, Urine Bilirubin Negative, Urine Urobilinogen 1 H, Ur Leukocyte Esterase 500 H, Urine RBC 10-25 SEEN, Urine WBC >100 SEEN, Ur Squamous Epith Cells 0 SEEN, Amorphous Sediment 4+, Urine Bacteria 2+, Urine Mucus 0 SEEN 05/27/21 21:26: POC Glucose 146 H 05/28/21 05:55: WBC 9.7, RBC 2.83 L, Hgb 7.7 L, Hct 24.7 L, MCV 87.3, MCH 27.2, MCHC 31.2 L, RDW Std Deviation 41.9, RDW Coeff of [place]arian 13.2, Plt Count 223, MPV 9.4, Immature Gran % (Auto) 1.000 H, Neut % (Auto) 84.5 H, Lymph % (Auto) 6.9 L, [place] % (Auto) 7.0, Eos % (Auto) 0.3, Baso % (Auto) 0.3, Absolute Neuts (auto) 8.2 H, Absolute Lymphs (auto) 0.67 L, Nucleated RBC % 0 05/28/21 05:55: Sodium 137, Potassium 4.0, Chloride 109 H, Carbon Dioxide 22.0, Anion Gap 6, BUN 38 H, Creatinine 2.98 H, Estim Creat Clear Calc 12.11, Est GFR (MDRD) Af Amer 26 L, Est GFR (MDRD) Non-Af 22 L, BUN/Creatinine Ratio 12.8, Glucose 116 H, Calcium 8.6, Magnesium 2.0, Total Bilirubin 0.30, AST 13 L, ALT 11 L, Alkaline Phosphatase 182 H, Total Protein 6.4, Albumin 1.9 L, Globulin 4.5 H, Albumin/Globulin Ratio 0.4 L 05/28/21 05:55: Phosphorus 2.7 05/28/21 05:55: Hemoglobin A1c 6.0 H 05/28/21 06:21: POC Glucose 116 H Micro: Microbiology 05/27/21 14:10 Urine Catheter - Catheter Urine Culture - Preliminary Mixed Gram Pos & Gram Neg Org Radiography Diagnostic Testing: Radiology Impression Abdomen/Pelvis CT 05/27/21 13:14 IMPRESSION: Bilateral hydronephrosis right worse than left with bilateral double-J stent catheters. Distended urinary bladder. MEJIA catheter seen within the urinary bladder. Stable sclerosis of the L5 vertebra and sacrum as well as the anterior aspect of the L4 vertebrae. Electronically Signed: Michael Cormier MD at 15:00 EDT , Physical Exam Const alert, oriented x3 and no apparent distress Constitutional Narrative: Patient appears cachectic and frail General Appearance: cooperative, well kempt and well developed Orientation / Consciousness: awake, oriented to person, oriented to place and oriented to time Nutritional Appearance: cachectic HEENT normocephalic, head/scalp atraumatic and moist oral mucous membranes Head and Scalp: normocephalic Eyes PERRL, EOMs intact bilaterally and conjunctivae normal Neck nuchal rigidity, supple, no JVD, thyroid normal and no carotid bruits General: trachea midline Resp normal respiratory effort, no retractions, no use of accessory muscles and clear to auscultation bilaterally Auscultation: Negative for rales, rhonchi or wheezes Cardio regular rate, regular rhythm, S1 normal heart sound, S2 normal heart sound, no murmurs, no rub and no gallops GI normal to inspection, nondistended, normoactive bowel sounds, soft to palpation, non-tender and non-distended Extremity no clubbing, cyanosis or edema Skin no rashes or lesions noted General Skin Exam: no breakdown Neuro oriented x3, CN's II-XII intact bilaterally, no focal motor deficits and no sensory deficits noted Sensorium / Orientation: awake and alert Speech: speech normal Psych affect normal Assessment & Plan Assessment/Plan (1) Hydronephrosis: PLAN: 1. 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
[2021-05-28] MEDS: Calcium (Elemental) 500 MG Tablet PO (13:31)
[2021-05-28] MEDS: Lidocaine Jelly 2% 20 ML Syringe (URO-JET) 1 APPLIC (16:54)
--- NOTE | 2021-05-28 16:56 | OP.PCM_ITS ---
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 and chronic bilateral obstruction with managed with stents to keep his kidneys working came to the hospital because he is not draining CAT scan was done demonstrates hydronephrosis and taken back today for stent changes of note when the patient came back to the operating room we saw fecal material within the catheter we removed the Akers catheter and there is fecal material within the Akers catheter I then went into the bladder with the cystoscope and there was fecal material all throughout inside the bladder he obviously developed unfortunately a very serious fistula to the rectum or colon therefore at this point I was not able to change his stents is able to remove both stents got to have bilateral nephrostomy tubes and he will immediate consult from general surgery or transfer to a tertiary care facility to manage his fistula patient anesthetic was versed I went spoke to the family regarding the findings. Surgeon: riley Type of Anesthesia: MAC and Topical Anesth Drains: akers 20 fr akers Admit VTE Documentation VTE Present on Admission: No VTE Mechan Device Prophylaxis: SCD's VTE Pharm Prophylaxis ordered?: No
--- NOTE | 2021-05-28 17:15 | SUR.PHASEI ---
PACU: NEW MEJIA CATHETER WAS PLACED IN O.R. JUST PRIOR TO PACU ARRIVAL PER O.R. STAFF, NO URINE OUTPUT YET. PATIENT VERY PAINFUL WITH ANY POSITION CHANGES, REPORTEDLY HAS Hx BONE JONATHAN. PER O.R. REPORT, POSSIBLE RECTO-URETHRAL FISTULA WHICH REQUIRES FURTHER EVALUATION.
[2021-05-28 17:46] LABS: Bedside Glucose 102 mg/dL (74-106)
[2021-05-28] MEDS: Mirtazapine 30 MG Tablet PO (21:55)
[2021-05-28] MEDS: Heparin Injection (Vial) 5,000 UNIT/ML VIAL 5000 UNIT SC (21:55)
[2021-05-28 22:11] LABS: Bedside Glucose 139 mg/dL (74-106)
[2021-05-29 00:06] LABS: Bedside Glucose 143 mg/dL (74-106)
[2021-05-29 05:50] VITALS: BP 134/56; PULSE 103; RESP 18; TEMP 37.7; O2SAT 100
[2021-05-29 06:02] LABS: International Normalized Ratio 1.3; Prothrombin Time (Protime)PT. 15.6 SECONDS (11.7-14.9)
[2021-05-29] MEDS: Menthol/Lanolin/Calamine/Znox 113 GM Tube 1 APPLIC TOPICAL ×3 (06:13→22:38)
[2021-05-29 06:21] LABS: Bedside Glucose 131 mg/dL (74-106)
--- NOTE | 2021-05-29 06:54 | CON.PCM.UR_ITS ---
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 For the kidneys second recommend we place bilateral nephrostomy tubes that will be chronic. Family was agreeable with this plan will consult general surgeon and will order nephrostomy tubes today. [facility] Medical History (Updated 05/28/21 @ 07:[address] Tal Hill MD) Anemia Anemia due to chronic kidney disease Arthritis Back pain Cancer Cancer Cancer of colon with rectum Cancer of prostate Cancer of prostate Cancer of rectum Chronic indwelling Judd catheter Chronic kidney disease Chronic kidney disease, stage 3b Depression Diabetes Diarrhea Dietary restriction Former smoker H/O fungal disease Hearing loss, left Hearing loss, right High cholesterol History of echocardiogram History of edema History of immunosuppression therapy History of pain when walking Hx of transesophageal echocardiography (SHANNAN) for monitoring Hypertension Insulin dependent diabetes mellitus Kidney disease Osteoporosis Pathological compression fracture of lumbar vertebra Restless legs Self-catheterizes urinary bladder Tendonitis of ankle Walker as ambulation aid Wears dentures Wears glasses Wears hearing aid in both ears Home Medications cholecalciferol (vitamin D3) 1,000 unit PO DAILY 12/08/19 [History Last Taken 05/26/21] loperamide 2 mg PO BID 12/08/19 [History Last Taken 05/26/21] sodium bicarbonate 650 mg PO BID 03/10/21 [History Last Taken 05/26/21] acetaminophen [Tylenol Arthritis] 650 mg PO Q8H PRN 05/27/21 [History Last Taken 05/26/21] calcium carbonate [Calcium 600] 600 mg PO DAILY 05/27/21 [History Last Taken 05/26/21] mirtazapine 30 mg PO QHS 05/27/21 [History Last Taken 05/26/21] Allergy/AdvReac Type Severity Reaction Status Date / Time No Known Allergies Allergy Verified 04/28/21 15:55 Family History Mother Diabetes Father CVA (cerebral vascular accident) Sister Heart disease Brother Heart disease Surgical History H/O partial resection of colon History of renal stent Hx of cystoscopy Hx of cystoscopy Hx of transurethral resection of prostate Social History household members: spouse housing: house current occupational status: retired Smoking Status: Former smoker alcohol intake: never substance use type: does not use Medical Records Data Medical Nutrition Assessment Dietitian: Malnutrition Criteria Met Start: 05/28/21 13:22 Freq: Status: Active Protocol: Document 05/28/21 13:45 AG (Rec: 05/28/21 13:45 [id number]) Nutrition Malnutrition Evidence of Malnutrition Exists Yes Malnutrition (severe): Chronic Evidenced By Suboptimal Energy Intake ( Severe),Weight Loss (Severe), Physical Changes (Severe) Clinical Problem Chronic Disease or Condition Related Malnutrition Etiology severe, chronic malnutrition r /t inadequate energy intake w/ increased energy needs d/t metastatic disease Signs/Symptoms as evidenced by 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 wt loss of 57.1#/37% x 1 year; 43.7#/31% 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 wt loss x 2 months; 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 intake meeting <50% of estimated energy needs >3 months; severe muscle wasting/ fat loss per physical exam; BMI 14.5 Status Active Problem Recommendation Dietitian Recommendations/Changes regular diet after surgery; will adjust ONS from Glucerna to Ensure Enlive given severe malnutrition Lab / Micro Data Result Diagrams: 05/28/21 05:55 05/28/21 05:55 Labs: Laboratory Results - last 24 hr 05/27/21 14:10: Urine Color Brown, Urine Clarity Turbid, Urine pH 7.0, Ur Specific [place] 1.010, Urine Protein 100 H, Urine Glucose (UA) Normal, Urine Ketones 5 H, Urine Occult Blood 250 H, Urine Nitrite Negative, Urine Bilirubin Negative, Urine Urobilinogen 1 H, Ur Leukocyte Esterase 500 H, Urine RBC 10-25 SEEN, Urine WBC >100 SEEN, Ur Squamous Epith Cells 0 SEEN, Amorphous Sediment 4+, Urine Bacteria 2+, Urine Mucus 0 SEEN 05/28/21 05:55: Sodium 137, Potassium 4.0, Chloride 109 H, Carbon Dioxide 22.0, Anion Gap 6, BUN 38 H, Creatinine 2.98 H, Estim Creat Clear Calc 12.11, Est GFR (MDRD) Af Amer 26 L, Est GFR (MDRD) Non-Af 22 L, BUN/Creatinine Ratio 12.8, Glucose 116 H, Calcium 8.6, Magnesium 2.0, Total Bilirubin 0.30, AST 13 L, ALT 11 L, Alkaline Phosphatase 182 H, Total Protein 6.4, Albumin 1.9 L, Globulin 4.5 H, Albumin/Globulin Ratio 0.4 L 05/28/21 05:55: Phosphorus 2.7 05/28/21 05:55: Hemoglobin A1c 6.0 H 05/28/21 11:50: POC Glucose 143 H 05/28/21 17:34: POC Glucose 102 05/28/21 21:53: POC Glucose 139 H 05/29/21 05:40: PT 15.6 H, INR 1.3 05/29/21 05:40: Blood Type O POSITIVE, Antibody Screen NEGATIVE 05/29/21 06:05: POC Glucose 131 H Micro: Microbiology 05/27/21 14:10 Urine Catheter - Catheter Urine Culture - Preliminary Mixed Gram Pos & Gram Neg Org
[2021-05-29 08:27] VITALS: BP 136/56; PULSE 105; RESP 18; TEMP 36.7; O2SAT 100
[2021-05-29] MEDS: Cholecalciferol (VIT D3) 25 MCG TABLET (1,000 UNITS) PO (08:45)
[2021-05-29] MEDS: Sodium Bicarbonate 650 MG Tablet PO ×2 (08:45→22:38)
[2021-05-29] MEDS: Calcium (Elemental) 500 MG Tablet PO (08:45)
[2021-05-29] MEDS: Loperamide 2 MG Capsule PO ×2 (08:45→22:38)
[2021-05-29] MEDS: Lactated Ringers 1,000 ML 70 ML IV (08:46)
[2021-05-29] MEDS: Ciprofloxacin 400 MG/200 ML BAG 200 MG IV (09:31)
--- NOTE | 2021-05-29 11:59 | PN.HOSP_ITS ---
Subjective Subjective Patient was seen and examined today, urology contacted me yesterday afternoon after the patient had a cystoscopy, there was evidence of stool in the patient's bladder indicating a colovesical fistula. I talked briefly with the patient and the patient's family today, they were in favor of the patient undergoing a c olostomy, however, general surgery talked with the patient and the patient's family after my encounter and told them that performing a colostomy probably would not benefit the patient in the long run and might ultimately result in more complications such as shortening his life span. Patient's family and patient consented to talk to hospice today, the nephrostomy tubes are scheduled to be placed today. Objective Data Objective Data Vital Signs: Vital Signs Temp Pulse Resp BP Pulse Ox 98.1 F 105 H 18 136/56 H 100 05/29/21 08:27 05/29/21 08:27 05/29/21 08:27 05/29/21 08:27 05/29/21 08:27 Oxygen Delivery Method Room Air Weight: 43.3 kg Body Mass Index (BMI) 14.5 Intake & Output: Intake and Output for Last 24 Hours 05/27/21 05/28/21 05/29/21 23:59 23:59 23:59 Intake Total 2550 / 2550 2481.5 / 2481.5 1252.5 / 1252.5 Output Total 700 / 700 1602 / 1602 50 / 50 Balance 1850 / 1850 879.5 / 879.5 1202.5 / 1202.5 Medical Nutrition Assessment Dietitian: Malnutrition Criteria Met Start: 05/28/21 13:22 Freq: Status: Active Protocol: Document 05/28/21 13:45 AG (Rec: 05/28/21 13:45 [id number]) Nutrition Malnutrition Evidence of Malnutrition Exists Yes Malnutrition (severe): Chronic Evidenced By Suboptimal Energy Intake ( Severe),Weight Loss (Severe), Physical Changes (Severe) Clinical Problem Chronic Disease or Condition Related Malnutrition Etiology severe, chronic malnutrition r /t inadequate energy intake w/ increased energy needs d/t metastatic disease Signs/Symptoms as evidenced by 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 wt loss of 57.1#/37% x 1 year; 43.7#/31% 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 wt loss x 2 months; 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 intake meeting <50% of estimated energy needs >3 months; severe muscle wasting/ fat loss per physical exam; BMI 14.5 Status Active Problem Recommendation Dietitian Recommendations/Changes regular diet after surgery; will adjust ONS from Glucerna to Ensure Enlive given severe malnutrition Lab / Micro Data Result Diagrams: 05/28/21 05:55 05/28/21 05:55 Labs: Laboratory Results - last 24 hr 05/28/21 11:50: POC Glucose 143 H 05/28/21 17:34: POC Glucose 102 05/28/21 21:53: POC Glucose 139 H 05/29/21 05:40: PT 15.6 H, INR 1.3 05/29/21 05:40: Blood Type O POSITIVE, Antibody Screen NEGATIVE 05/29/21 06:05: POC Glucose 131 H Micro: Microbiology 05/27/21 14:10 Urine Catheter - Catheter Urine Culture - Preliminary GNR 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 rubber 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 Alpha hemolytic organism Physical Exam Const alert, oriented x3 and no apparent distress Constitutional Narrative: Patient appears frail and unwell General Appearance: cooperative, well kempt and well developed Orientation / Consciousness: awake, oriented to person, oriented to place and oriented to time HEENT normocephalic, head/scalp atraumatic and moist oral mucous membranes Head and Scalp: normocephalic Eyes PERRL, EOMs intact bilaterally and conjunctivae normal Neck nuchal rigidity, supple, no JVD, thyroid normal and no carotid bruits General: trachea midline Resp normal respiratory effort, no retractions, no use of accessory muscles and clear to auscultation bilaterally Auscultation: Negative for rales, rhonchi or wheezes Cardio regular rate, regular rhythm, S1 normal heart sound, S2 normal heart sound, no murmurs, no rub and no gallops GI normal to inspection, nondistended, normoactive bowel sounds, soft to palpation, non-tender and non-distended Extremity no clubbing, cyanosis or edema Skin no rashes or lesions noted General Skin Exam: no breakdown Neuro oriented x3, CN's II-XII intact bilaterally, no focal motor deficits and no sensory deficits noted Sensorium / Orientation: awake and alert Speech: speech normal Psych Psych Narrative: Patient has flat affect Assessment & Plan Assessment/Plan (1) Hydronephrosis: PLAN: 1. 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
--- NOTE | 2021-05-29 12:00 | EX.PCM.CON.S ---
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 Patient does have a history of metastatic rectal cancer to bone. He was not a candidate for chemotherapy. I discussed the patient's CT with him as well as the findings from the cystoscopy yesterday. I discussed this with the family members present as well. The only surgical option I would be able to offer would be a diverting colostomy. The patient has had several abdominal surgeries and likely has scar tissue. I discussed the risks of these procedures. I also discussed that with leaving the bladder fistula intact there may be translocation of remaining stool and bacteria causing more complications. I did inform her that there is a good chance this may not fix any of his problems. I also discussed hospice care with him. I discussed comfort care measures and that this may be the way to go in his case. The patient has been malnourished and not eating well and I explained that there is a high likelihood of injury to other bowel necessitating laparotomy due to scar tissue. There may also be a high chance of complications due to his functional status. The patient is discussing this with his daughter and his daughter would like hospice consultation for discussion of options. After they meet with hospice they will decide on further management. If the patient does elect for surgery I would be able to perform this on Wednesday. I did discuss our conversation with the primary hospitalist. Brandon Adan MD Pager: [facility] [address] [place] [address], [address] [place] [address] Office: HPI Consult Data Date of Consult: 05/29/21 HPI Narrative HPI Narrative: ALEA SALGADO, is a 80 M who had cystoscopy yesterday which identified stool in the bladder. Patient has history of metastatic rectal cancer. The patient had LAR with ileostomy then subsequent ileostomy reversal about 12 years ago. Patient also had prostate cancer history. The patient has not been eating well and has been malnourished. [facility] Medical History (Updated 05/28/21 @ 07:[address] Tal Hill MD) Anemia Anemia due to chronic kidney disease Arthritis Back pain Cancer Cancer Cancer of colon with rectum Cancer of prostate Cancer of prostate Cancer of rectum Chronic indwelling Judd catheter Chronic kidney disease Chronic kidney disease, stage 3b Depression Diabetes Diarrhea Dietary restriction Former smoker H/O fungal disease Hearing loss, left Hearing loss, right High cholesterol History of echocardiogram History of edema History of immunosuppression therapy History of pain when walking Hx of transesophageal echocardiography (SHANNAN) for monitoring Hypertension Insulin dependent diabetes mellitus Kidney disease Osteoporosis Pathological compression fracture of lumbar vertebra Restless legs Self-catheterizes urinary bladder Tendonitis of ankle Walker as ambulation aid Wears dentures Wears glasses Wears hearing aid in both ears Home Medications cholecalciferol (vitamin D3) 1,000 unit PO DAILY 12/08/19 [History Last Taken 05/26/21] loperamide 2 mg PO BID 12/08/19 [History Last Taken 05/26/21] sodium bicarbonate 650 mg PO BID 03/10/21 [History Last Taken 05/26/21] acetaminophen [Tylenol Arthritis] 650 mg PO Q8H PRN 05/27/21 [History Last Taken 05/26/21] calcium carbonate [Calcium 600] 600 mg PO DAILY 05/27/21 [History Last Taken 05/26/21] mirtazapine 30 mg PO QHS 05/27/21 [History Last Taken 05/26/21] Allergy/AdvReac Type Severity Reaction Status Date / Time No Known Allergies Allergy Verified 04/28/21 15:55 Family History Mother Diabetes Father CVA (cerebral vascular accident) Sister Heart disease Brother Heart disease Surgical History H/O partial resection of colon History of renal stent Hx of cystoscopy Hx of cystoscopy Hx of transurethral resection of prostate Social History household members: spouse housing: house current occupational status: retired Smoking Status: Former smoker alcohol intake: never substance use type: does not use ROS Constitutional Constitutional: Reports anorexia and fatigue Eyes Eyes: Denies blurry vision ENT HEENT: Denies abnormal hearing Cardiovascular Cardiovascular: Denies chest pain Respiratory/Chest Respiratory/Chest: Denies cough Gastrointestinal Gastrointestinal: Reports abdominal pain; Denies bloating, coffee ground emesis, nausea, rectal bleeding or vomiting Genitourinary Genitourinary: Reports change in urinary stream and other Details: Stool in the urine Integumentary Integumentary: Denies jaundice Neurologic Neurologic: Denies dizziness Psychiatric Psychiatric: Denies anxiety Physical Exam Const alert and oriented x3 HEENT normocephalic Eyes PERRL Neck full ROM Resp normal respiratory effort Cardio Rate: regular rate GI soft to palpation Palpation: Negative for tender Medical Records Data Medical Nutrition Assessment Dietitian: Malnutrition Criteria Met Start: 05/28/21 13:22 Freq: Status: Active Protocol: Document 05/28/21 13:45 AG (Rec: 05/28/21 13:45 [id number]) Nutrition Malnutrition Evidence of Malnutrition Exists Yes Malnutrition (severe): Chronic Evidenced By Suboptimal Energy Intake ( Severe),Weight Loss (Severe), Physical Changes (Severe) Clinical Problem Chronic Disease or Condition Related Malnutrition Etiology severe, chronic malnutrition r /t inadequate energy intake w/ increased energy needs d/t metastatic disease Signs/Symptoms as evidenced by 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 wt loss of 57.1#/37% x 1 year; 43.7#/31% 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 wt loss x 2 months; 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 intake meeting <50% of estimated energy needs >3 months; severe muscle wasting/ fat loss per physical exam; BMI 14.5 Status Active Problem Recommendation Dietitian Recommendations/Changes regular diet after surgery; will adjust ONS from Glucerna to Ensure Enlive given severe malnutrition Lab / Micro Data Result Diagrams: 05/28/21 05:55 05/28/21 05:55 Labs: Laboratory Results - last 24 hr 05/28/21 11:50: POC Glucose 143 H 05/28/21 17:34: POC Glucose 102 05/28/21 21:53: POC Glucose 139 H 05/29/21 05:40: PT 15.6 H, INR 1.3 05/29/21 05:40: Blood Type O POSITIVE, Antibody Screen NEGATIVE 05/29/21 06:05: POC Glucose 131 H Micro: Microbiology 05/27/21 14:10 Urine Catheter - Catheter Urine Culture - Preliminary GNR lactose promotions assistant sales marketing Alpha hemolytic organism
--- NOTE | 2021-05-29 12:18 | CASEMGMT ---
Social Work Note SW updated that consult was placed for Hospice Referral. SW reviewed chart. Pt is already active with [facility]. JESI placed a call to pt's Terri. Terri confirms she is aware of referral and would like to be called to arrange meeting time. [phone]. JESI informed Terri that this worker will make referral to [facility] and they will call her for meeting time. Terri states understanding. JESI faxed referral to [facility]. JESI placed a call to [facility] and provided Hospice Referral to [place]. Plan: Hospice consult Araceli Stone SOFTWARE ASSET MANAGEMENT ANALYST, ELECTRICAL ELECTRONICS ENGINEERS
[2021-05-29 14:11] VITALS: BP 118/53; PULSE 94; RESP 16; TEMP 36.3; O2SAT 100
--- NOTE | 2021-05-29 15:40 | CASEMGMT ---
Social Work Note SW spoke with Cindy Potts from [facility] stating pt signed with Hospice services. Pt can get nephrostomy tube placed tomorrow and then discharge home with Hospice services. Araceli Stone PHOTOGRAPHIC AIDE, MECHANICAL ENGINEERING TECHNICIAN
[2021-05-29 17:21] LABS: Bedside Glucose 123 mg/dL (74-106)
[2021-05-29] MEDS: Morphine 2 MG/ML Syringe IV (17:43)
[2021-05-29] MEDS: Ondansetron 4 MG/2 ML Vial IV (17:43)
[2021-05-29] MEDS: 0.9% Saline Lock 10 ML Syringe IV (17:44)
[2021-05-29] MEDS: LORazepam 2 MG/ML Syringe 0.5 MG IV (18:45)
[2021-05-29] MEDS: Mirtazapine 30 MG Tablet PO (22:39)
[2021-05-29 22:45] VITALS: BP 102/67; PULSE 119; RESP 18; TEMP 37; O2SAT 96
[2021-05-30] VITALS (13 sets, daily range): BP systolic 100–142; BP diastolic 47–110; PULSE 78–122; RESP 15–96; TEMP 36.5–39.4; O2SAT 22–100
--- NOTE | 2021-05-30 08:30 | CT_ITS ---
PROCEDURE: Left percutaneous nephrostomy. DATE OF EXAMINATION: 05/30/2021 INDICATION: Male, 80 years old. A lateral ureteral obstruction. PHYSICIAN: Dr. MARKO Hernández RADIATION DOSAGE (If Supplied By Facility): CTDIvol = ( 10.88 ) mGy, DLP = ( 784.84 ) mGycm. Individualized dose optimization techniques were utilized. CONSENT: The risks including hemorrhage and infection, benefits and alternatives to the procedure were explained to the patient, and the patient agreed to the procedure and signed the consent. SEDATION: 2 mg of VERSED and 50 mcg of FENTANYL. Conscious sedation was started at 8:38 AM and terminated at 9:25 AM. The patient was independently monitored by the department nurse. STERILE BARRIER TECHNIQUE: The following sterile barrier precautions were used during the procedure: hand hygiene; use of 2% chlorhexidine aseptic; use of a cap, mask, sterile gown, sterile gloves, sterile full body drape, and a large sterile sheet. PROCEDURE/TECHNIQUE: (All elements of maximal sterile barrier technique followed, including US elements as applicable) The risks, benefits, and alternatives to the procedure were explained to patient, and the patient agreed to the procedure and signed a consent form for the procedure. A timeout was performed to confirm the patient''s identity, the type of procedure, to be performed and the site of entry. The patient was in the prone position. The overlying skin was prepped and draped in usual sterile fashion. Following local anesthetic application and conscious sedation, a 8 Nepali percutaneous nephrostomy catheter was placed into the collecting system. The patient tolerated the procedure well. CT/Nephrotube Placement CT IMPRESSION: Successful percutaneous left nephrostomy. Conscious sedation was performed. Electronically Signed: Michael Cormier MD at 11:24 EDT ,
--- NOTE | 2021-05-30 08:30 | CT_ITS ---
PROCEDURE: Right percutaneous nephrostomy placement. DATE OF EXAMINATION: 05/30/2021. INDICATION: Male, 80 years old. Bilateral ureteral obstruction. PHYSICIAN: Dr. MARKO Hernández RADIATION DOSAGE (If Supplied By Facility): CTDIvol = ( 10.87 ) mGy, DLP = ( 74.84 ) mGycm CONSENT: The risks, including infection and bleeding, benefits and alternatives to the procedure were explained to the patient, and the patient agreed to the procedure and signed the consent. SEDATION: Conscious sedation was performed. The patient received 2 mg of VERSED and 50 mcg of FENTANYL intravenously. Conscious sedation was started at 8:38 AM and submitted 9:25 AM. The patient was independently monitored by the department nurse. STERILE BARRIER TECHNIQUE: The following sterile barrier precautions were used during the procedure: hand hygiene; use of 2% chlorhexidine aseptic; use of a cap, mask, sterile gown, sterile gloves, sterile full body drape, and a large sterile sheet. PROCEDURE/TECHNIQUE: (All elements of maximal sterile barrier technique followed, including US elements as applicable) The risks, benefits, and alternatives to the procedure were explained to patient, and the patient agreed to the procedure and signed a consent form for the procedure. A timeout was performed to confirm the patient''s identity, the type of procedure, to be performed and the site of entry. The patient was in the supine position. The overlying skin was prepped and draped in usual sterile fashion. Percutaneous puncture of the right renal collecting system was performed. Placement of a 8 Slovak nephrostomy catheter was placed. The patient tolerated the procedure well. CT/Nephrotube Placement CT IMPRESSION: Successful right sided percutaneous nephrostomy placement. Conscious sedation protocol was followed. The patient tolerated the procedure well. Electronically Signed: Michael Cormier MD at 12:48 EDT ,
[2021-05-30] MEDS: Midazolam 2 MG/2 ML Syringe IV ×2 (08:38→08:51)
[2021-05-30] MEDS: fentaNYL 100 MCG/2 ML Ampul IV ×2 (08:40→08:53)
[2021-05-30] MEDS: Lidocaine 2% (20 ml mdv) 20 ML Vial INFILT (08:52)
[2021-05-30] MEDS: Ciprofloxacin 400 MG/200 ML BAG 200 MG IV (10:27)
[2021-05-30] MEDS: Sodium Bicarbonate 650 MG Tablet PO (10:28)
[2021-05-30] MEDS: Cholecalciferol (VIT D3) 25 MCG TABLET (1,000 UNITS) PO (10:28)
[2021-05-30] MEDS: Calcium (Elemental) 500 MG Tablet PO (10:28)
[2021-05-30] MEDS: Loperamide 2 MG Capsule PO (10:28)
[2021-05-30] MEDS: Morphine 2 MG/ML Syringe IV (10:52)
--- NOTE | 2021-05-30 13:12 | DCINST_ITS ---
Discharge Instructions Diet Discharge Diet: No restrictions Activity Discharge Activity: Return to Normal Activity Weight Bearing Status: Weight bearing as tolerated Follow Up Care Test Results: Test results from this visit will be discussed in further detail at your follow-up appointment, if applicable. Discharge Plan Admission Admit Date/Time: 05/27/21 16:09 Primary Reason for Your Visit: Acute cystitis, colovesical fistula Attending Provider: Serafin Craft Primary Care Provider: Camilla Birmingham Consulting Providers: Tal Hill ; Brandon Adan ; Reina Lea ; Kalpesh Crowe ; Talia Jha ; Camilla Birmingham ; Starla Enamorado ; Lana Mullins FRONT END LOADER DRIVER Instructions Patient Instructions: Percutaneous Nephrostomy, Percutaneous Nephrostomy Dc, ED Procedural Sedation, (Adult) Discharge Orders/Prescriptions Prescriptions: New morphine concentrate 100 mg/5 mL (20 mg/mL) solution 20 mg PO Q4H PRN (Reason: pain) 7 Days Qty: 30 RF: 0 Continued loperamide 2 MG capsule 2 mg PO BID RF: 0 acetaminophen 650 mg Tablet Extended Release 650 mg PO Q8H PRN (Reason: Pain) RF: 0 mirtazapine 30 mg tablet 30 mg PO QHS RF: 0 Discontinued cholecalciferol (vitamin D3) 1,000 UNIT tablet 1,000 unit PO DAILY RF: 0 sodium bicarbonate 650 mg tablet 650 mg PO BID RF: 0 calcium carbonate [Calcium 600] 600 mg calcium (1,500 mg) Tablet 600 mg PO DAILY RF: 0 Referrals / Follow Up: Talia Jha MD [STAFF PHYSICIAN] - See Referral Note (as scheduled) Camilla Birmingham NP-C [Primary Care Provider] - Disposition Disposition (needs filled in before D/C Order can be placed): Hospice in Home
--- NOTE | 2021-05-30 13:57 | NURSING ---
pt arrived back from radiology at 1030, temp within normal limits, pt complaining of freezing and shaking, several warm blankets placed, heat in room turned up per patient request, checked temp at this time TA 103.0, pt refused oral temp.
--- NOTE | 2021-05-30 15:00 | DS.PCM_ITS ---
Providers Date of Admission: 05/27/21 Date of Discharge: 05/30/21 Primary Care Physician: Camilla Birmingham, LANEY Consultations 05/27/21 17:10 Consult: Urology Routine Consulting Provider: Tal Hill Reason for Consult: Hydronephrosis EMERGENT Consult: No Notified: Yes Date Notified: 05/27/21 Time Notified: 16:13 Method of Notification: Verbal 05/29/21 06:55 Consult: General Surgery Routine Consulting Provider: Brandon Adan Reason for Consult: fistula EMERGENT Consult: No Notified: Yes Date Notified: 05/29/21 Time Notified: 06:56 Method of Notification: Verbal 05/29/21 11:33 Consult: Hospice / Palliative Care Routine Consulting Provider: [facility] Reason for Consult: hospice d/t terminal rectal cancer with severe bladder/colon fistula EMERGENT Consult: Yes MD Notified: Yes Date Notified: 05/29/21 Time Notified: 11:33 Method of Notification: Verbal Comments:: recommendations for hospice per surgeon request. Reason For Visit: UTI WITH B HYDRONEPHROSIS Diagnosis Discharge Diagnosis (1) Hydronephrosis: Status: Acute Code(s): N13.30 - Unspecified hydronephrosis (2) Complicated acute cystitis: Status: Acute (3) Metastatic adenocarcinoma to bone: Status: Chronic Code(s): C79.51 - Secondary malignant neoplasm of bone Plan: 1. 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 intake meeting less than 50% of estimated energy needs over 3 months, and evidence of severe muscle wasting and fat loss per physical exam. Regular diet was recommended, Ensure Enlive was given due to the severe malnutrition, patient ultimately agreed to hospice care #7 metastatic rectal cancer to L5/sacral bones #8 anemia of chronic kidney disease Medications at Discharge Home Medications loperamide 2 mg PO BID 12/08/19 acetaminophen 650 mg PO Q8H PRN 05/27/21 mirtazapine 30 mg PO QHS 05/27/21 morphine concentrate 20 mg PO Q4H PRN 7 Days #30 ml 05/30/21 Hospital Course Operations - (Cystoscopy) Procedures - (Placement of percutaneous nephrostomy tubes) Summary of Care Provided Minutes Spent on Discharge: 32 Hospital Course: This 80-year-old white male was seen in the emergency room at [facility] with complains of decreased output from his Judd catheter and increasing weakness and lethargy. Patient had ureteral stents placed in February 2021 due to hydronephrosis, patient also has a history of metastatic rectal cancer to the sacrum and L5 which was noted on his medical record in March 2021. Since that time, patient's medical condition has been declining, patient was felt to be too frail to undergo chemotherapy in April 23. Work-up in the emergency room revealed the patient to be alert, he appeared frail and unwell, Judd catheter bag showed some brown thick urine in its base, the Judd catheter was replaced and the urine then appeared to be yellow with material that appeared to be purulent. Lab work showed a white blood cell count of 14.3, hemoglobin was 8.9, creatinine was 3.53. Urinalysis showed 500 leukocyte esterase, greater than 100 leukocytes, +[address] of the abdomen and pelvis was obtained without contrast which showed bilateral hydroureteronephrosis. Urology was contacted and agreed to see the patient in consultation, he was admitted to [place] [address] and placed on IV antibiotics. The following day, patient underwent a cystoscopy which revealed stool in the bladder felt to be secondary to a colonovesical fistula from his rectal cancer. Stents could not be placed in the ureters, it was recommended the patient undergo percutaneous nephrostomy tube placement. General surgery was asked to see the patient regarding a possible diverting colostomy, general surgery felt that it would not be in the patient's best interest to undergo the surgery and that it would not lengthen his life span to undergo the surgery. Conversations were carried out with the family and his daughters as well as the patient and he consented to become active with hospice. On 05/30/2021, patient underwent plac ement of percutaneous nephrostomy tubes. Arrangements were set up for the patient to return home under hospice care. On 05/30/2021, patient was seen and examined: On examination he appeared frail, cachectic, and unwell. He appeared somnolent. Vital signs as documented. Skin warm and dry and without overt rashes. Neck without JVD, neck was supple, trachea midline, thyroid was normal. Lungs clear bilaterally, normal air movement was noted. Heart exam notable for regular rhythm, normal sounds and absence of murmurs, rubs or gallops. Abdomen unremarkable and without evidence of organomegaly, masses, or abdominal aortic enlargement. Bowel sounds are present, abdomen is not distended. Extremities nonedematous, no cyanosis was noted, no clubbing was noted. Patient appeared cachectic. Neuro: Cranial nerves II through XII are grossly intact, no focal motor deficits were noted, sensation to light touch and pinprick intact, motor exam 5/5 throughout. Psych: Patient is somnolent, he appears frail and unwell On 05/30/2021, patient was discharged to home with hospice care, patient was felt to be terminal, family members and the patient were aware of prognosis. Medical Records Data Medical Nutrition Assessment Dietitian: Malnutrition Criteria Met Start: 05/28/21 13:22 Freq: Status: Active Protocol: Document 05/28/21 13:45 AG (Rec: 05/28/21 13:45 [id number]) Nutrition Malnutrition Evidence of Malnutrition Exists Yes Malnutrition (severe): Chronic Evidenced By Suboptimal Energy Intake ( Severe),Weight Loss (Severe), Physical Changes (Severe) Clinical Problem Chronic Disease or Condition Related Malnutrition Etiology severe, chronic malnutrition r /t inadequate energy intake w/ increased energy needs d/t metastatic disease Signs/Symptoms as evidenced by 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 wt loss of 57.1#/37% x 1 year; 43.7#/31% 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 wt loss x 2 months; 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 intake meeting <50% of estimated energy needs >3 months; severe muscle wasting/ fat loss per physical exam; BMI 14.5 Status Active Problem Recommendation Dietitian Recommendations/Changes regular diet after surgery; will adjust ONS from Glucerna to Ensure Enlive given severe malnutrition Weight / BMI Weight Weight: 43.3 kg Body Mass Index (BMI) 14.5 ABG / Lab / Microbiology Data Result Diagrams: 05/28/21 05:55 05/28/21 05:55 Laboratory: Laboratory Results - last 24 hr 05/27/21 14:10: Urine Color Brown, Urine Clarity Turbid, Urine pH 7.0, Ur Specific [place] 1.010, Urine Protein 100 H, Urine Glucose (UA) Normal, Urine Ketones 5 H, Urine Occult Blood 250 H, Urine Nitrite Negative, Urine Bilirubin Negative, Urine Urobilinogen 1 H, Ur Leukocyte Esterase 500 H, Urine RBC 10-25 SEEN, Urine WBC >100 SEEN, Ur Squamous Epith Cells 0 SEEN, Amorphous Sediment 4+, Urine Bacteria 2+, Urine Mucus 0 SEEN 05/29/21 17:09: POC Glucose 123 H Microbiology: Microbiology 05/27/21 16:00 Blood Culture (Wb) - Left Hand Blood Culture - Preliminary No growth in 48 hours. 05/27/21 16:00 Blood Culture (Wb) - Anticubital Right Blood Culture - Preliminary No growth in 48 hours. 05/27/21 14:10 Urine Catheter - Catheter Urine Culture - Preliminary Enterobacter cloacae complex Streptococcus sanguinis Radiography Diagnostic Testing: Radiology Impression Nephrostomy Tube Change 05/30/21 08:30 IMPRESSION: Successful percutaneous left nephrostomy. Conscious sedation was performed. Electronically Signed: Michael Cormier MD at 11:24 EDT , Nephrostomy Tube Change 05/30/21 08:30 IMPRESSION: Successful right sided percutaneous nephrostomy placement. Conscious sedation protocol was followed. The patient tolerated the procedure well. Electronically Signed: Michael Cormier MD at 12:48 EDT , D/C Instructions Discharge Diet: No restrictions Weight Bearing Status: Weight bearing as tolerated Meaningful Use Info Meaningful Use Diagnoses (Choose all that apply): None applicable Discharge Plan Admission Admit Date/Time: 05/27/21 16:09 Primary Reason for Your Visit: Acute cystitis, colovesical fistula Attending Provider: Serafin Crfat Primary Care Provider: Camilla Birmingham Consulting Providers: Tal Hill ; Brandon Adan ; Reina Lea ; Kalpesh Crowe Jodi ; Camilla Birmingham ; Starla Enamorado Rebekah DENTAL SERVICES DIRECTOR Instructions Patient Instructions: Percutaneous Nephrostomy, Percutaneous Nephrostomy Dc, ED Procedural Sedation, (Adult) Discharge Orders/Prescriptions Prescriptions: New morphine concentrate 100 mg/5 mL (20 mg/mL) solution 20 mg PO Q4H PRN (Reason: pain) 7 Days Qty: 30 RF: 0 Continued loperamide 2 MG capsule 2 mg PO BID RF: 0 acetaminophen 650 mg Tablet Extended Release 650 mg PO Q8H PRN (Reason: Pain) RF: 0 mirtazapine 30 mg tablet 30 mg PO QHS RF: 0 Discontinued cholecalciferol (vitamin D3) 1,000 UNIT tablet 1,000 unit PO DAILY RF: 0 sodium bicarbonate 650 mg tablet 650 mg PO BID RF: 0 calcium carbonate [Calcium 600] 600 mg calcium (1,500 mg) Tablet 600 mg PO DAILY RF: 0 Referrals / Follow Up: Talia Jha MD [STAFF PHYSICIAN] - See Referral Note (as scheduled) Camilla Birmingham NP-C [Primary Care Provider] - Disposition Disposition (needs filled in before D/C Order can be placed): Hospice in Home Charges/Coding Visit Charges Inpatient E&M: 44834 Disch Hosp
--- NOTE | 2021-05-30 16:00 | CASEMGMT ---
Social Work Note JESI updated that transportation is arranged for 6:30pm to transport pt home tonight. JESI placed a call to [facility] and updated Manuel in the referral office of transportation time. JESI then received call from Pebbles with [facility] requesting update on transportation time. JESI updated Pebbles that transportation is arranged for 6:30pm tonight. Pebbles states understanding. Araceli Stone REPAIR WELDER, BUNG DROPPER
--- NOTE | 2021-05-30 16:21 | CASEMGMT ---
Faxed dc instructions and summary to [facility] at this time.
[2021-05-30] MEDS: Acetaminophen 325 MG Tablet 650 MG PO (18:15)
== END 2021-05-30 20:31 | disposition hospice, home (50) | DRG 659 ==
LOC: ED 13:04 → MS3 16:17
PROVIDERS: Anesthesiology; Urology; Admitting Provider Internal Medicine; Emergency Provider Student in an Organized Health Care Education/Training Program; PCP Nurse Practitioner Family; Visit Provider Internal Medicine
PROC: 0TP94DZ Removal of Intraluminal Device from Ureter, Percutaneous Endoscopic Approach (ICD-10-PCS; CPT 52332; principal; 2021-05-28 15:20)
DX: N13.6 Pyonephrosis (principal); E43 Unspecified severe protein-calorie malnutrition; K63.2 Fistula of intestine; C79.51 Secondary malignant neoplasm of bone; M84.48XA Pathological fracture, other site, initial encounter for fracture; Z68.1 Body mass index [BMI] 19.9 or less, adult; D63.1 Anemia in chronic kidney disease; E11.22 Type 2 diabetes mellitus with diabetic chronic kidney disease; Z79.4 Long term (current) use of insulin; N18.4 Chronic kidney disease, stage 4 (severe); E78.00 Pure hypercholesterolemia, unspecified; I12.9 Hypertensive chronic kidney disease with stage 1 through stage 4 chronic kidney disease, or unspecified chronic kidney disease; N40.1 Benign prostatic hyperplasia with lower urinary tract symptoms; F32.A Depression, unspecified; Z87.891 Personal history of nicotine dependence; Z66 Do not resuscitate; Z85.048 Personal history of other malignant neoplasm of rectum, rectosigmoid junction, and anus; Z85.46 Personal history of malignant neoplasm of prostate; N13.9 Obstructive and reflux uropathy, unspecified
CPT/HCPCS: 36415; 50432; 51702; 74176; 80048; 80053; 81001; 82962; 83036; 83735; 84100; 85025; 85610; 86850; 86900; 86901; 87040; 87077; 87086; 87088; 87186; 93005; 97110; 97166; 97535; 97802; 99156; 99157; 99251; 99285; J7030; J7040; J7120; A4216; C1769; G0463; J0744; J2405